=== PATIENT | male | born 1975 | race Caucasian/White ===

== ENCOUNTER → 2016-03-12 | Outpatient (CLI) | payer BC ==
[~2016-03-12] MED LIST: ASPEC81 PO; ASPI81TA28 PO; ATOR-24 PO; CLOP1TAB15 PO; DOXY50CA PO; HYDR-5688 PO; INSDGI; INSPMPHMLG; LPT40 PO; MULT-506 PO; OMEP20CA9 PO; PLV75 PO; PRED-301 PO; PREG75CA PO; QUIN10TA25 PO; SIRO1TAB4 PO; TACR1CAP7 PO; TPRSR50 PO; ZLF/100 PO; ZRX5 PO
[2016-03-12 12:58] LABS: BASO % 0.4 %; BASO ABS # 0.04 K/uL (0-0.2); COMPLETE YES; EOS % 0.9 %; HEMATOCRIT 40.6 % (42-52); IG% 0.2 %; LYMPH % 20.9 %; LYMPH ABS # 1.88 K/uL (1.2-3.4); MEAN CELL VOLUME 80.6 fL (80-100); MEAN CORPUSCULAR HEMOGLOBIN 27.4 pg (25-34); MEAN PLATELET VOLUME 11.5 fL (7.4-10.4); MONO % 9.3 %; NEUT % 68.3 %; PLATELET COUNT 181 K/uL (130-400); RED BLOOD COUNT 5.04 M/uL (4.7-6.1); WHITE BLOOD COUNT 9.01 K/uL (4.8-10.8)
[2016-03-12 13:06] LABS: BLOOD UREA NITROGEN 48 mg/dl (7-18); BUN/CREATININE RATIO 20.9 (10-20); CALCIUM 9.3 mg/dl (8.5-10.1); CARBON DIOXIDE 27 mmol/L (21-32); CHLORIDE 102 mmol/L (98-107); GLUCOSE 93 mg/dl (70-99); POTASSIUM 4.1 mmol/L (3.5-5.1); SODIUM 139 mmol/L (136-145); URIC ACID 6.9 mg/dl (2.6-7.2)
[2016-03-12 14:00] LABS: ESTIMATED AVERAGE GLUCOSE 235 mg/dl; HA1C FLAG Normal (Normal)
== END | disposition home or self-care (01) ==
LOC: C.LAB1850 11:32
PROVIDERS: ATTEND Internal Medicine
DX: E10.9 Type 1 diabetes mellitus without complications (principal); I10 Essential (primary) hypertension; N18.2 Chronic kidney disease, stage 2 (mild); Z94.0 Kidney transplant status

== ENCOUNTER 2016-03-28 05:24 | Day surgery (SDC) | payer BC, OTHER ==
[2016-03-20 16:40] LABS: HEMATOCRIT 40.4 % (42-52); MEAN CELL VOLUME 81.5 fL (80-100); MEAN CORPUSCULAR HEMOGLOBIN 27.4 pg (25-34); MEAN CORPUSCULAR HGB CONC 33.7 g/dl (32-36); MEAN PLATELET VOLUME 11.5 fL (7.4-10.4); PLATELET COUNT 234 K/uL (130-400); RED BLOOD COUNT 4.96 M/uL (4.7-6.1); WHITE BLOOD COUNT 12.45 K/uL (4.8-10.8)
[2016-03-20 16:50] LABS: PARTIAL THROMBOPLASTIN RATIO 0.9; PROTHROMBIN TIME (PATIENT) 10.5 SECONDS (9.0-12.0)
[2016-03-20 16:57] LABS: BLOOD UREA NITROGEN 48 mg/dl (7-18); BUN/CREATININE RATIO 18.6 (10-20); CARBON DIOXIDE 28 mmol/L (21-32); CHLORIDE 105 mmol/L (98-107); GLUCOSE 53 mg/dl (70-99); POTASSIUM 3.8 mmol/L (3.5-5.1); SODIUM 142 mmol/L (136-145)
[2016-03-20 17:11] LABS: BASO % 0.6 %; BASO ABS # 0.07 K/uL (0-0.2); COMPLETE YES; EOS % 1.2 %; IG% 0.2 %; LYMPH % 42.7 %; LYMPH ABS # 5.31 K/uL (1.2-3.4); MONO % 8.4 %; NEUT % 46.9 %
[2016-03-22 15:23] VITALS: BMI 26.0
--- NOTE | 2016-03-27 09:35 | HISTORY & PHYSICAL EXAMINATION ---
DATE OF ADMISSION: 03/28/2016 CHIEF COMPLAINT: Left trigger thumb. HISTORY OF PRESENT ILLNESS: The patient is a 40-year-old gentleman with multiple medical problems and a left trigger thumb. He is scheduled for a left trigger thumb release. However, due to a history of multiple medical problems, his procedure is to be performed at the hospital. PAST MEDICAL HISTORY: Coronary artery disease, status post SC and stent placement, history of end-stage renal disease status post renal transplant with chronic renal insufficiency, hypertension, type 1 diabetes, hyperlipidemia, peripheral neuropathy, depression, gout. PAST SURGICAL HISTORY: Amputation of finger, eye surgery, renal transplant. MEDICATIONS: Allopurinol 300 mg daily, aspirin 81 mg daily, atorvastatin calcium 80 mg at bedtime, clopidogrel 75 mg daily, colchicine 0.6 mg daily, doxycycline hyclate 50 mg 2 times daily, Humalog insulin pump as directed, Lantus insulin as directed, Lyrica 75 mg twice daily, metolazone 10 mg daily, metoprolol succinate ER 200 mg daily, omeprazole 20 mg daily in the a.m. before breakfast, prednisone 5 mg daily, quinapril HCL 20 mg every 12 hours, sertraline HCL 50 mg 1-1/2 tablets daily, Sirolimus 2 mg two tablets once daily, tacrolimus 1 mg 3 capsules twice daily. ALLERGIES: HUMULIN R SOLUTION. SOCIAL HISTORY AND REVIEW OF SYSTEMS: Noncontributory. PHYSICAL EXAMINATION: GENERAL: Well-nourished, well-developed male who appears older than his stated age. HEENT: Normocephalic, atraumatic, extraocular movements intact, oropharynx pink and moist. NECK: Supple without adenopathy. LUNGS: Clear to auscultation bilaterally. HEART: Regular rate and rhythm. ABDOMEN: Soft, nontender, nondistended. EXTREMITIES: The left thumb demonstrates painful triggering at the A1 toan. ASSESSMENT: Left trigger thumb. PLAN: Risks versus benefits were discussed. Consent was obtained. The patient's primary care physician is Dr. Kobe Samson. He has been seen and evaluated by [facility]. Will proceed with left trigger thumb upon preoperative workup and medical clearance.
[~2016-03-28] VITALS: Ht 162.6 cm; Wt 70.5 kg
[~2016-03-28 05:24] MED LIST changes: -ASPEC81 PO; -HYDR-5688 PO; -LPT40 PO; -PLV75 PO; -TPRSR50 PO
[2016-03-28 05:52] VITALS: BP 120/83; PULSE 80; TEMP 36.4; O2SAT 99; Ht 162.6 cm; Wt 70.5 kg
[2016-03-28] MEDS ORDERED: CEFAZOLIN 1000MG/55 ML D5W IV SCH (06:00)
[2016-03-28] MEDS ORDERED: SODIUM CHLORIDE 0.9% 1000ML 1,000 ML IV SCH ×2 (06:00→07:06)
[2016-03-28] MEDS ORDERED: LACTATED RINGER'S 1000ML 1,000 ML IV SCH (06:00)
[2016-03-28] MEDS ORDERED: PROPOFOL IV EMULSION 10 MG/ML 20 ML VIAL IV ONE (06:21)
[2016-03-28] MEDS ORDERED: MIDAZOLAM HCL 1 MG/ML 2ML VIAL ONE (06:21)
[2016-03-28] MEDS ORDERED: ONDANSETRON INJ 2 MG/ML 2 ML VIAL ONE (06:21)
[2016-03-28] MEDS ORDERED: LIDOCAINE HCL 2% 2 ML VIAL (20MG/ML) ONE (06:21)
[2016-03-28] MEDS ORDERED: FENTANYL CITRATE INJ 50 MCG/1 ML 2 ML VIAL ONE (06:21)
[2016-03-28 06:49] LABS: BUN/CREATININE RATIO 20.4 (10-20); CALCIUM 8.7 mg/dl (8.5-10.1); CREATININE 2.6 mg/dl (0.60-1.40); POTASSIUM 4.2 mmol/L (3.5-5.1)
--- NOTE | 2016-03-28 06:50 | History & Physical Bridge Note ---
H&P Re-Evaluation Bridge Note: I have examined the patient, reviewed the History & Physical and in the interval since the performance of the History & Physical I have noted the following changes of clinical significance: No changes noted
[2016-03-28] MEDS ORDERED: HYDR-5688 PO (07:08)
--- NOTE | 2016-03-28 07:11 | Discharge Instructions ---
Discharge Instructions Visit Reason for Visit: Left Trigger Thumb; Pre-Op Discharge Discharge Diagnosis / Problem: Left trigger thumb Discharge Goals Goal(s): Decrease discomfort, Improve function Activity Recommendations Activity Limitations: as noted below Anesthesia . Post Anesthesia Instructions: If you have had General Anesthesia or IV Sedation: * Do not drive today. * Resume driving when surgeon permits. * Do not make important decisions or sign legal documents today. * Call surgeon for: 1. Temperature elevations greater than 101 degrees F. 2. Uncontrollable pain. 3. Excessive bleeding. 4. Persistent nausea and vomiting. 5. Medication intolerance (nausea, vomiting or rash). * For nausea and vomiting use only clear liquids such as: tea, soda, bouillon until nausea subsides, then gradually increase diet as tolerated. * If you have any concerns or questions, call your surgeon's office. If physician is unavailable and it is an emergency, call 911 or go to the nearest emergency room. . Instructions / Follow-Up Instructions / Follow-Up Maintain dressing x 48 hours then may remove and shower. Do not submerge wound in water. Apply light dressing/band-aid as necessary. May use thumb for light daily activities as tolerated. Follow-up with Dr Garvey ~10-14 days Diet Recommendations Recommended Home Diet: diabetes diet Pending Studies Studies pending at discharge: no Medical Emergencies . Who to Call and When: Medical Emergencies: If at any time you feel your situation is an emergency, please call 911 immediately. . Non-Emergent Contact Non-Emergency issues call your: Surgeon Call Non-Emergent contact if: temperature is above 101.5, your pain is not controlled, wound has increased drainage, wound has increased redness . . "Provider Documentation" section prepared by Star Molina PA-C.
[2016-03-28] MEDS ORDERED: OXYCODONE/ACETAMINOPHEN 5-325 TAB PO PRN (07:15)
[2016-03-28] MEDS ORDERED: HYDROCODONE/ACETAMOPHEN 5/325MG TAB PO PRN (07:15)
[2016-03-28] MEDS ORDERED: LIDOCAINE HCL 1% 20 ML VIAL INJ ONE (07:35)
[2016-03-28] MEDS ORDERED: ATROPINE SULFATE 0.1 MG/ML 5ML SYR IV PRN (07:45)
[2016-03-28] MEDS ORDERED: FENTANYL CITRATE INJ 50 MCG/1 ML 2 ML VIAL IV PRN (07:45)
[2016-03-28] MEDS ORDERED: LABETALOL HCL IV 5 MG/ML 20ML IV PRN (07:45)
[2016-03-28] MEDS ORDERED: ONDANSETRON INJ 2 MG/ML 2 ML VIAL IV PRN (07:45)
[2016-03-28 07:55] VITALS: BP 125/89; PULSE 73; TEMP 36.5; O2SAT 100
[2016-03-28 08:19] VITALS: BP 143/96; PULSE 76; O2SAT 100
[2016-03-28 08:25] VITALS: BP 130/84; PULSE 72; TEMP 36.4; O2SAT 100
--- NOTE | 2016-03-28 08:30 | OPERATIVE REPORT ---
DATE OF OPERATION: 03/28/2016 PREOPERATIVE DIAGNOSIS: Trigger thumb, left. POSTOPERATIVE DIAGNOSIS: Trigger thumb, left. PROCEDURE: Release trigger thumb, left. SURGEON: Dr. Garvey. ANESTHESIA: Local IV sedation. COMPLICATIONS: None. OPERATION AND FINDINGS: Following induction of adequate IV sedation, the patient's left arm was prepped and draped in usual sterile manner. The proximal crease of the thumb was injected with 1% lidocaine without epinephrine. A horizontal incision was made in the proximal flexor crease of the thumb. Subcutaneous tissue was bluntly dissected and the A1 toan was identified and transected. This released all triggering. The wound was irrigated and closed using 4-0 nylon vertical mattress sutures. Sterile dressing of Adaptic, 4x4s, and Kerlix was applied. The patient tolerated the procedure well. I attest to the content of the Intraoperative Record and any orders documented therein. Any exceptio ns are noted below.
--- NOTE | 2016-03-28 08:45 | Anesthesiology Progress Note ---
Anesthesia Post Op Note Date & Time Mar 28, 2016 at 08:45 Vital Signs Pain Intensity: 0 Vital Signs Past 12 Hours Date Time Temp Pulse Resp B/P Pulse Ox O2 Delivery O2 Flow Rate FiO2 03/28/16 08:25 36.4 72 16 130/84 100 Room Air 03/28/16 08:19 76 16 143/96 100 Room Air 03/28/16 07:55 36.5 73 16 125/89 100 Room Air 03/28/16 07:49 36.3 72 16 03/28/16 07:49 72 16 99 03/28/16 07:48 155/103 03/28/16 07:44 71 9 100 03/28/16 07:44 71 9 03/28/16 07:43 160/123 03/28/16 07:42 160/113 03/28/16 07:39 84 14 100 03/28/16 07:39 78 14 03/28/16 07:38 159/118 03/28/16 07:36 75 12 99 03/28/16 07:36 73 12 03/28/16 07:33 147/91 03/28/16 07:31 72 16 03/28/16 07:31 74 16 100 03/28/16 07:28 150/95 03/28/16 07:26 71 12 100 03/28/16 07:26 71 12 03/28/16 07:23 148/83 03/28/16 07:21 72 13 100 03/28/16 07:21 72 13 03/28/16 07:21 36.9 80 16 142/97 100 Diffusion Mask 8 03/28/16 05:52 36.4 80 18 120/83 99 Room Air Notes Mental Status: alert / awake / arousable, participated in evaluation Pt Amnestic to Procedure: Yes Nausea / Vomiting: adequately controlled Pain: adequately controlled Airway Patency, RR, SpO2: stable & adequate BP & HR: stable & adequate Hydration State: stable & adequate Anesthetic Complications: no major complications apparent
== END 2016-03-28 08:30 | disposition home or self-care (01) ==
LOC: C.ACU 05:24
DX: M65.312 Trigger thumb, left thumb (principal); I25.10 Atherosclerotic heart disease of native coronary artery without angina pectoris; I25.2 Old myocardial infarction; N18.6 End stage renal disease; I12.0 Hypertensive chronic kidney disease with stage 5 chronic kidney disease or end stage renal disease; Z95.5 Presence of coronary angioplasty implant and graft; F32.9 Major depressive disorder, single episode, unspecified; Z94.0 Kidney transplant status

== ENCOUNTER → 2016-05-16 | Outpatient (CLI) | payer BC ==
[~2016-05-16] MED LIST changes: +HYDR-5688 PO
--- NOTE | 2016-05-17 06:43 | PAP/PSG TECHNICIAN REPORT ---
[facility] Pile Driver Operator Polysomnogram Report Study name: None Report date: 05/17/2016 Study date: 05/16/2016 Referring Physician: DR. MARISCAL Name: JEIMY GALINDO Interpreting Physician: Bakari Mariscal M.D. Date of : 1975 Pile Driver Operator: Peyman Fuentes RPSGT. Sex: Male Age: 40 StudyType: PSG PAP Weight: 151 lbs 16 inches Height: 40 years, Height 5' 3" Neck Circum: BMI: 26.75 Medications: ALLOPURINAL 300 MG, ASPIRIN 81 MG, ATORVASTATIN CALCIUM 80 MG, CLOPIDOGREL BISULFATE 75 MG, COLCHICINE 0.6 MG, DOXYCYCLINE HYCLATE 50 MG, HUMALOG, LANTUS, LYRICA 75 MG, METOLAZONE 5 MG, METOPROLOL SUCCINATE ER 200 MG, OMEPRAZOLE 20 MG, PREDNISONE 5 MG, QUINAPRIL HCL 20 MG, SERTRALINE HCL 50 MG, SIROLIMUS 2 MG, TACROLIMUS 1 MG Patient History PATIENT RECENTLY HAD A HOME SLEEP STUDY DONE AND WAS POSITIVE FOR DIANE WITH AN AHI OF 18.9/HR. HE IS HERE TODAY FOR A CPAP TITRATION. ESS = 17 RM 7 Parameters Monitored NPSG: E1-M2, E2-M1, Fp1-M2, Fp2-M1, F3-M2, F4-M2, F4-M1, C3-M2, C4-M2, C4-M1, O1-M2, O2-M2, O2-M1, T3-M2, T4-M1, P3-M2, P4-M1, CHIN1, CHIN2, HR, EKG, Legs, PFLOW, SNOR, FLOW, CFLOW, Tidal Volume, THOR, ABDO, SpO2, PLTH, CPRESS, ETCO2 Wave, ETCO2, pH Sleep Architecture Sleep Stages Time at Lights Off 10:28:43 PM STAGES Time (min.) TST (%) Time at Lights On 5:49:13 AM Wake 39.0 -- Total Recording Time (TRT) 441.00 min. N1 30.5 8 Total Sleep Period (TSP) 433.5 min. N2 220.5 55 Total Sleep Time (TST) 401.5min. N3 57.5 14 Awake Time 39.5 min. REM 93.0 23 Wake after Sleep Onset 32.5 min. Sleep Efficiency (SE) 91 % Sleep Onset Latency (LINO) 6.5 min. Number of Stage 1 Shifts None Awakenings 29 Stage Changes 126 Number of REM periods 5 REM 93.0 23 REM Latency 170.5 min. NREM 308.5 77 Body Position Analysis Supine Right Left Side Prone Vertical Total Sleep Time (min.) 289.3 0.0 134.8 134.77 0.0 0.0 Total Sleep Time (%) 66% 0% 34% 34 0% N/A% Total Sleep Time REM (min.) 63.0 0.0 30.0 None 0.0 0.0 Total Sleep Time NREM (min.) 203.7 0.0 104.8 None 0.0 0.0 Intermittent Wake (min.) 22.5 0.0 16.5 None 0.0 0.0 Total Sleep Period (%) 66% None None None None None Arousals Myoclonus (PLM) * Events Count Index Events Count Index Spontaneous 44 7 Events Awake (PLMW) 46 70.8 Respiratory 21 3.3 Events Asleep w/ Arousal (PLMA) 16 2.4 PLM 14 2 Events Asleep w/o Arousal (PLMS) 180 26.9 Snoring 0 0 Total Asleep 196 29.3 Total 79 12 Total 242 33 Respiratory Analysis * CA OA MA CH H RERA Total Count 1 4 0 0 18 29 23 Index 0.1 0.6 0.0 0 2.7 4 7.8 Mean Duration 12.5 18.8 0.0 0.00 22.2 17.2 19.0 Longest Duration 12.5 20.9 0.0 0.00 0.0 20.4 31.5 Respiratory Event Summary Total Supine ~Supine Right Left Prone REM NREM Apneas Count 5 4 1 N/A 1 N/A 0 5 Index 0.7 1 0 N/A 0.4 N/A 0 1 Hypopneas (4% Desat) Count 18 17 1 N/A 1 N/A 2 16 Index 2.7 3.8 0 N/A 0.4 N/A 1.3 3.1 Apneas & All Hypopneas Count 23 21 2 N/A 2 N/A 2 21 Index 3.4 5 1 N/A 1 N/A 1.3 4.1 Respiratory Events (Diesel Instructor+All Hyp+RERA) Count 23 50 2 N/A 2 N/A 2 21 Index 7.8 11 1 N/A 0.9 N/A 1.3 9.7 Respiratory Related Arousal Count 21 50 0 N/A 0 N/A 1 21 Index 3.3 5 0 N/A 0 N/A 1 4 Snoring Analysis Supine Right Left Prone REM NREM Total Snore duration 0.1 min Snores count 2 N/A 1 N/A 1 2 3 Snore mean duration 1.8 Sec Snores index 0 N/A 0 N/A 0.6 0.4 0.4 TST with snoring (%) 0.0% Desaturation Event Summary: Minimum %SpO2 Event Count Mean/Min/Max Duration(sec.) Desaturation Index % Time In Bed > 90 27 36.0 / 7.3 / 63.3 3.7 99.6 86 - 90 0 N/A 0.0 0.4 81 - 85 0 N/A 0.0 0.0 76 - 80 0 N/A 0.0 0.0 71 - 75 0 N/A 0.0 0.0 66 - 70 0 N/A 0.0 0.0 61 - 65 0 N/A 0.0 0.0 56 - 60 0 N/A 0.0 0.0 51 - 55 0 N/A 0.0 0.0 < 50 0 N/A 0.0 0.0 Total REM NREM Awake <50% 0.0 min. 0.0 min. 0.0 min. 0.0 min. 51 - 60% 0.0 min. 0.0 min. 0.0 min. 0.0 min. 61 - 70% 0.0 min. 0.0 min. 0.0 min. 0.0 min. 71 - 80% 0.0 min. 0.0 min. 0.0 min. 0.0 min. 81 - 90% 1.9 min. 0.0 min. 1.9 min. 0.0 min. 91 - 100% 437.8 min. 92.9 min. 306.5 min. 38.3 min. Average 97 98 97 97 Minimum SpO2 87 94 87 93 Desaturation Event Index 3.7 1.3 3.7 9.2 # Desat. Events below 89% 2 N/A 1 1 Time(%) with Saturation below 89% 0.1 0.0 0.1 0.0 Time(min.) with Saturation below 89% 0.3 0.0 0.3 0.0 Heart Rate Analysis End Tidal CO2 Analysis Min (bpm) Max (bpm) Average (bpm) TSP (mins) % of TSP Awake 53 127 85 Above 55 mmHg 0.0 0.0 NREM 58 96 82 50-55 mmHg 120.1 29.9 REM 49 86 80 45-50 mmHg 281.4 70.1 Overall 49 96 81 40-45 mmHg 0.0 0.0 35-40 mmHg 0.0 0.0 30-35 mmHg 0.0 0.0 Average ETCO2 0.0 Supplemental O2 Values Minimum O2 level: None Value Start Time End Time Pile Driver Operator Comments Mr. Galindo slept in the supine and left positions. Increased heart rate noted at times. Leg movements noted. No bruxism noted. CPAP was initiated at +4 CMH2O and up-titrated to an optimal level of +13 CMH2O, which nearly eliminated all respiratory events and snoring. A [employer] Simplus size small full face mask was used during titration Mr. Galindo awoke to use the restroom 0 times during the night. Mr. Galindo stated I slept as well as I do when I am in my own bed. The final report will be interpreted and signed by a sleep physician. The completed physician report will then be placed in the patient medical record. Therapy Event: Therapy (cm H20) 4 5 6 7 8 9 10 12 13 Total Time at Pressure (min.) 72.2 9.1 11.4 16.6 14.8 47.2 80.6 13.0 175.5 TST at Pressure (min.) 62.2 7.1 11.4 15.6 11.3 42.2 79.1 13.0 159.5 # Periods 1 1 1 1 1 1 1 1 1 Sleep Onset (min.) 6.5 0.0 0.0 0.0 0.0 0.0 0.0 0.0 0.0 REM Onset (min.) N/A N/A N/A N/A N/A N/A 5.6 N/A 114.5 Sleep Efficiency % 86 78 100 94 76 89 98 100 90 Wakefulness (%) 13.9 22.0 0.0 6.0 23.6 10.6 1.9 0.0 9.1 Wakefulness (min.) 10.0 2.0 0.0 1.0 3.5 5.0 1.5 0.0 16.0 NREM 1 (%) 11.1 33.0 19.6 19.6 6.7 10.6 3.7 0.0 2.8 NREM 1 (min.) 8.0 3.0 2.2 3.3 1.0 5.0 3.0 0.0 5.0 NREM 2 (%) 59.1 45.1 80.4 74.4 69.7 78.8 37.3 15.1 41.3 NREM 2 (min.) 42.7 4.1 9.2 12.4 10.3 37.2 30.1 2.0 72.5 NREM 3 (%) 15.9 0.0 0.0 0.0 0.0 0.0 0.0 84.9 19.9 NREM 3 (min.) 11.5 0.0 0.0 0.0 0.0 0.0 0.0 11.0 35.0 REM (%) 0.0 0.0 0.0 0.0 0.0 0.0 57.1 0.0 26.8 REM (min.) 0.0 0.0 0.0 0.0 0.0 0.0 46.0 0.0 47.0 # Arousals 16 9 9 8 6 12 5 0 14 Arousal Index 15.4 76.0 47.2 30.7 31.7 17.1 3.8 0.0 5.3 # Snore 1 0 0 0 0 1 1 0 0 Snore Index 1.0 0.0 0.0 0.0 0.0 1.4 0.8 0.0 0.0 AHI 2.9 25.3 5.2 0.0 15.9 1.4 4.6 18.5 0.8 AHI Supine 16.1 25.3 5.2 0.0 15.9 1.4 7.6 18.5 1.0 AHI Non-Supine 2.1 N/A N/A N/A N/A N/A 0.0 N/A 0.0 NREM AHI 2.9 25.3 5.2 0.0 15.9 1.4 9.1 18.5 0.5 REM AHI N/A N/A N/A N/A N/A N/A 1.3 N/A 1.3 RDI 2.9 67.6 47.2 19.2 31.7 8.5 4.6 18.5 1.9 # Obstructive 0 1 0 0 1 1 1 0 0 # Central Ap 1 0 0 0 0 0 0 0 0 # Mixed 0 0 0 0 0 0 0 0 0 # Hypopneas 2 2 1 0 2 0 5 4 2 RERAS 0 5 8 5 3 5 0 0 3 Total Respiratory Events 3 8 9 5 6 6 6 4 5 Time Below SpO2 89.00% (min.) 0.0 0.1 0.0 0.0 0.0 0.0 0.2 0.0 0.0 Mean NREM SpO2 (%) 95 94 97 98 98 98 97 97 98 Mean REM SpO2 (%) N/A N/A N/A N/A N/A N/A 98 N/A 98 Mean Sleep SpO2 (%) 95 94 97 98 98 98 97 97 98 Min NREM SpO2 (%) 90 88 93 94 95 96 87 93 92 Min REM SpO2 (%) N/A N/A N/A N/A N/A N/A 94 N/A 94 Position Supine (min.) 3.7 7.1 11.4 15.6 11.3 42.2 47.2 13.0 115.1 Position Non-supine (min.) 58.5 0.0 0.0 0.0 0.0 0.0 31.9 0.0 44.4 LM Index Sleep 49.2 50.7 41.9 30.7 15.9 34.1 14.4 27.8 26.7 LM Index NREM 49.2 50.7 41.9 30.7 15.9 34.1 16.3 27.8 30.4 LM Index REM N/A N/A N/A N/A N/A N/A 13.0 N/A 17.9 Mean Heart Rate (bpm) 88 87 87 86 85 84 80 77 78 Min Heart Rate (bpm) 74 82 82 58 74 79 74 75 49
--- NOTE | 2016-05-21 10:23 | POLYSOMNOGRAPH REPORT ---
CLINICAL DATA: A 40-year-old male with BMI of 26.75 referred by myself and Dr. Samson for treatment of sleep apnea. He had a baseline sleep study done at home which showed moderate sleep apnea with an AHI of 18.9 and was referred for a CPAP titration study. SLEEP ARCHITECTURE: Total sleep period was 433.5 minutes. Total sleep time was 401.5 minutes divided between 308.5 minutes of non-REM sleep and 93 minutes of REM sleep. Sleep onset latency was 6.5 minutes. REM latency was slightly delayed at 170.5 minutes. Sleep efficiency was 91%. Wake after sleep onset was 32.5 minutes. Sleep consisted of stage N1 8%, N2 55%, N3 14% and REM 23%. AROUSAL DATA: 79 arousals were recorded for an index of 12 per hour. PERIODIC LIMB MOVEMENTS DATA: Mildly elevated limb movements during sleep were noted. There are 196 limb movements during sleep noted for an index of 29.3 per hour with arousal index of 2.4 per hour. RESPIRATORY DATA: The AHI was 3.4. There was 1 central and 4 obstructive apneic episodes. The longest duration of apnea was 20.9 seconds. There were 18 hypopneic episodes. The mean duration of hypopnea was 22.2 seconds. OXIMETRY DATA: Mild nocturnal hypoxemia was seen. Oxygen mary was 87%. During non-REM sleep, the mean saturation was 97%. EKG: Heart rates ranged from 58-96 beats per minute. No arrhythmias were noted. ACCOUNTS PAYABLE PROFESSIONAL'S COMMENTS: The patient slept in the supine and the left positions. CPAP was started using a [employer] size small full facemask and was titrated up to 13 cm of water pressure as the final pressure setting. At 13 cm of water pressure, the patient slept for 159.5 minutes with an AHI of 1.9. IMPRESSION: Moderate sleep apnea/hypopnea corrected with CPAP at 13 cm of water pressure with a [employer] Simplus size small full facemask. RECOMMENDATIONS: The patient will be started on the above noted treatment regimen and seen back in followup within 90 days to document efficacy and compliance. MELISSA
== END | disposition home or self-care (01) ==
LOC: C.NEUR 21:00
PROVIDERS: ATTEND Internal Medicine Pulmonary Disease
DX: I25.10 Atherosclerotic heart disease of native coronary artery without angina pectoris (principal); G47.19 Other hypersomnia; Z94.0 Kidney transplant status; G47.33 Obstructive sleep apnea (adult) (pediatric)

== ENCOUNTER → 2016-08-12 | Outpatient (CLI) | payer BC ==
[2016-08-12 12:48] LABS: BASO ABS # 0.05 K/uL (0-0.2); COMPLETE YES; EOS % 3.7 %; HEMATOCRIT 37.8 % (42-52); IG% 0.2 %; LYMPH % 38.2 %; LYMPH ABS # 1.95 K/uL (1.2-3.4); MEAN CELL VOLUME 79.9 fL (80-100); MEAN CORPUSCULAR HEMOGLOBIN 27.3 pg (25-34); MEAN CORPUSCULAR HGB CONC 34.1 g/dl (32-36); MEAN PLATELET VOLUME 11.6 fL (7.4-10.4); MONO % 10.4 %; NEUT % 46.5 %; PLATELET COUNT 166 K/uL (130-400); RED BLOOD COUNT 4.73 M/uL (4.7-6.1)
[2016-08-12 13:04] LABS: ESTIMATED AVERAGE GLUCOSE 283 mg/dl; HA1C FLAG Normal (Normal)
[2016-08-12 13:20] LABS: ALT/SGPT 45 U/L (12-78); AST/SGOT 32 U/L (15-37); BLOOD UREA NITROGEN 56 mg/dl (7-18); BUN/CREATININE RATIO 22.5 (10-20); CALCIUM 8.7 mg/dl (8.5-10.1); CARBON DIOXIDE 27 mmol/L (21-32); CHLORIDE 103 mmol/L (98-107); GLUCOSE 112 mg/dl (70-99); POTASSIUM 3.7 mmol/L (3.5-5.1); SODIUM 140 mmol/L (136-145)
[2016-08-12 13:23] LABS: CHOLESTEROL 185 mg/dl (0-200); CHOLESTEROL/HDL RATIO 2.1; HDL CHOLESTEROL 87 mg/dl; LDL CHOLESTEROL CALCULATED 73 mg/dl; TRIGLYCERIDES 123 mg/dl (0-150); VERY LOW DENSITY LIPOPROT CALC 25 mg/dl
== END | disposition home or self-care (01) ==
LOC: C.LAB1850 10:03
PROVIDERS: ATTEND Physician Assistant
DX: N18.9 Chronic kidney disease, unspecified (principal); E78.5 Hyperlipidemia, unspecified; I25.10 Atherosclerotic heart disease of native coronary artery without angina pectoris

== ENCOUNTER → 2016-09-24 | Outpatient (CLI) | payer BC ==
[2016-09-24 09:52] LABS: BLOOD UREA NITROGEN 57 mg/dl (7-18); BUN/CREATININE RATIO 21.9 (10-20); CALCIUM 8.7 mg/dl (8.5-10.1); CARBON DIOXIDE 26 mmol/L (21-32); CHLORIDE 105 mmol/L (98-107); GLUCOSE 145 mg/dl (70-99); POTASSIUM 4.7 mmol/L (3.5-5.1); SODIUM 140 mmol/L (136-145)
[2016-09-24 09:53] LABS: TOTAL IRON BINDING CAPACITY 261 mcg/dl (250-450)
== END | disposition home or self-care (01) ==
LOC: C.LAB 06:44
PROVIDERS: ATTEND Physician Assistant
DX: N18.9 Chronic kidney disease, unspecified (principal); E10.9 Type 1 diabetes mellitus without complications

== ENCOUNTER → 2017-02-17 | Outpatient (CLI) | payer BC ==
[~2017-02-17] MED LIST changes: -HYDR-5688 PO; -QUIN10TA25 PO; +QUIN1TAB61 PO
[2017-02-17 17:53] LABS: BASO % 0.4 %; BASO ABS # 0.03 K/uL (0-0.2); COMPLETE YES; EOS % 1.3 %; HEMATOCRIT 35.7 % (42-52); IG% 0.4 %; LYMPH % 27.3 %; MEAN CELL VOLUME 83.2 fL (80-100); MEAN CORPUSCULAR HEMOGLOBIN 27.3 pg (25-34); MEAN CORPUSCULAR HGB CONC 32.8 g/dl (32-36); MEAN PLATELET VOLUME 12.6 fL (7.4-10.4); NEUT % 60.6 %; PLATELET COUNT 140 K/uL (130-400); RED BLOOD COUNT 4.29 M/uL (4.7-6.1); WHITE BLOOD COUNT 8.41 K/uL (4.8-10.8)
[2017-02-17 18:42] LABS: URINE PROTIEN/CREAT RATIO 1.3 (0-0.2); URINE TOTAL PROTEIN 220.6 mg/dl (0-11.9)
[2017-02-17 18:59] LABS: BLOOD UREA NITROGEN 42 mg/dl (7-18); BUN/CREATININE RATIO 15.8 (10-20); CALCIUM 8.2 mg/dl (8.5-10.1); CARBON DIOXIDE 24 mmol/L (21-32); CHLORIDE 106 mmol/L (98-107); CREATININE 2.66 mg/dl (0.60-1.40); GLUCOSE 160 mg/dl (70-99); POTASSIUM 4.1 mmol/L (3.5-5.1); SODIUM 138 mmol/L (136-145)
[2017-02-17 19:04] LABS: FERRITIN 133.5 ng/ml (8.0-388.0); PHOSPHORUS 3.6 mg/dl (2.5-4.9); TOTAL IRON BINDING CAPACITY 248 mcg/dl (250-450)
== END | disposition home or self-care (01) ==
LOC: C.LABPVFM 15:58
PROVIDERS: ATTEND Internal Medicine
DX: E78.5 Hyperlipidemia, unspecified (principal)

== ENCOUNTER 2017-04-01 16:11 | Inpatient (IN) | payer BC, OTHER ==
[2017-04-01] VITALS (8 sets, daily range): BP systolic 123–161; BP diastolic 75–108; PULSE 87–96; TEMP 36.5; O2SAT 95–98; BMI 29.9
[~2017-04-01] VITALS: Ht 160 cm; Wt 72.8 kg
[2017-04-01] MEDS ORDERED: ASPIRIN 81 MG CHEW PO STA (16:30)
[2017-04-01] MEDS: NITROGLYCERIN 0.4 MG SL PER TAB CHARGE SL PRN ×3 (16:37→16:50)
--- NOTE | 2017-04-01 16:50 | DIAGNOSTIC IMAGING REPORT ---
SINGLE VIEW CHEST CLINICAL HISTORY: Atypical chest pain. FINDINGS: An AP, portable, upright chest radiograph is compared to study dated 03/25/2015. The examination is degraded by portable technique and patient rotation. The heart appears enlarged. There is pulmonary vascular congestion. Bilateral airspace opacities suggest interstitial edema. There is no large pleural effusion or pneumothorax identified. The bony thorax is grossly intact. IMPRESSION: 1. Cardiomegaly with pulmonary vascular congestion. 2. Bilateral airspace opacities with a perihilar distribution suggest interstitial edema. Correlate clinically for evidence of superimposed pneumonia. Electronically signed by: Rob Kaur M.D. 04/01/2017 4:49 PM Dictated Date/Time: 04/01/2017 4:48 PM
[2017-04-01 16:51] LABS: BASO % 0.3 %; BASO ABS # 0.03 K/uL (0-0.2); EOS % 1.9 %; EOS ABS # 0.17 K/uL (0-0.5); HEMATOCRIT 39.4 % (42-52); HEMOGLOBIN 12.7 g/dL (14.0-18.0); IG# 0.04 K/uL (0.00-0.02); LYMPH % 24.5 %; LYMPH ABS # 2.19 K/uL (1.2-3.4); MEAN CELL VOLUME 85.3 fL (80-100); MEAN CORPUSCULAR HEMOGLOBIN 27.5 pg (25-34); MEAN CORPUSCULAR HGB CONC 32.2 g/dl (32-36); MEAN PLATELET VOLUME 12.5 fL (7.4-10.4); MONO % 4.9 %; MONO ABS # 0.44 K/uL (0.11-0.59); NEUT ABS # 6.07 K/uL (1.4-6.5); PLATELET COUNT 175 K/uL (130-400); RED CELL DISTRIBUTION WIDTH CV 15.5 % (11.5-14.5); RED CELL DISTRIBUTION WIDTH SD 48.2 fL (36.4-46.3); WHITE BLOOD COUNT 8.94 K/uL (4.8-10.8)
[2017-04-01] MEDS ORDERED: NITROGLYCERIN OINT 2% 1GM PACKET EXT ONE (17:00)
[2017-04-01 17:07] LABS: BLOOD UREA NITROGEN 46 mg/dl (7-18); CALCIUM 8.7 mg/dl (8.5-10.1); CARBON DIOXIDE 24 mmol/L (21-32); CREATININE 3.06 mg/dl (0.60-1.40); GLUCOSE 263 mg/dl (70-99); POTASSIUM 5.2 mmol/L (3.5-5.1); SODIUM 138 mmol/L (136-145)
[2017-04-01] MEDS ORDERED: NITROGLYCERIN 2% OINTMENT 30GM TUBE EXT ONE ×2 (17:10→17:12)
[2017-04-01 17:15] LABS: CKMB 9.1 ng/ml (0.5-3.6)
[2017-04-01] MEDS ORDERED: MoRPHine SULFATE 4 MG/ML 1 ML CARP\\VIAL IV STA (17:31)
[2017-04-01] MEDS ORDERED: MAGNESIUM HYDROXIDE SUSP 30 ML UDC PO PRN (18:15)
[2017-04-01] MEDS ORDERED: ACETAMINOPHEN 325 MG TAB PO PRN (18:15)
[2017-04-01] MEDS ORDERED: HydrALAZINE HCL 20 MG/ML VIAL IV. PRN (18:15)
[2017-04-01] MEDS ORDERED: ALUMINUM/MAGNESIUM/SIMETH (MAALOX MAX) 30 ML UDC PO PRN (18:15)
[2017-04-01] MEDS ORDERED: POLYETHYLENE (MIRALAX) 17 GM PACK PO PRN (18:15)
[2017-04-01] MEDS ORDERED: MoRPHine SULFATE 2 MG/ML CARP IV PRN (18:15)
[2017-04-01] MEDS ORDERED: ONDANSETRON INJ 2 MG/ML 2 ML VIAL IV PRN (18:15)
[2017-04-01] MEDS ORDERED: NITROGLYCERIN/D5W 100 MCG/ML 250 ML IV PRN (18:15)
[2017-04-01] MEDS ORDERED: BUMETANIDE SOLN 1 MG/4 ML VIAL IV ONE (18:15)
--- NOTE | 2017-04-01 19:07 | History and Physical ---
History & Physical Date & Time of Service: Apr 01, 2017 at 18:27 Chief Complaint: Chest Pain, Going Down Left Arm, Sick- Cardiac Hx Primary Care Physician: Kobe Samson M.D. History of Present Illness Source: patient, family, clinic records, hospital records Patient is a pleasant 41 y/o male, with PMHx of CAD MA w/ cardiac stenting in 2015, CKD stage IV s/p kidney transplant in 2001 on immunosuppressants, T1DM w/ insulin pump, DIANE, HTN, HLD, and anxiety/depression, who presented to the ED because of chest pressure radiating to L arm. Patient was at work (he is [employer] ). He states he was walking across campus when he started to experience chest tightness. He then sat down and relaxed w/ no relief in symptoms. Shortly after he got up to walk again and became severely SOB causing him to need to sit down. He still complains of chest tightness but has improved since arrival- he was given IV Morphine, Nitro ointment/SL, and ASA in ED. Pain is similar to past presentation of MA but not as severe. Troponin is negative, EKG looks unchanged from previous EKG. He follows w/ Dr. Hadley. He also notes his kidney transplant has been slowly failing. He follows w/ Dr. Samson. He notes very little UO. He also admits to lower extremity edema- he was recently placed on Metolazone by Dr. aSmson w/ no improvement in symptoms. He states his base weight is around 150 lb, today patient is around 175 lb. Patient denies any fever, chills, sweats, lightheadedness, dizziness, vision changes, palpitations , wheezing, cough, abdominal pain, nausea, vomiting, diarrhea, urinary symptoms , melena, numbness/tingling, weakness, muscle/joint pain, anxiety/depression, active bleeding, or new skin discoloration/changes. Past Medical/Surgical History Medical Problems: CAD MA w/ cardiac stenting in 2015 CKD stage IV s/p kidney transplant in 2001 on immunosuppressants T1DM w/ insulin pump DIANE HTN HLD anxiety/depression Family History Diabetes mellitus Hypertension Kidney disease Kidney stones Social History Smoking Status: Never Smoker Drug Use: none Marital Status: Housing status: lives with family Occupational Status: employed Immunizations History of Influenza Vaccine: Yes Influenza Vaccine Date: Dec 10, 2009 History of Tetanus Vaccine?: No History of Pneumococcal: No History of Hepatitis B Vaccine: Yes Multi-Drug Resistant Organisms History of MDRO: No Allergies Coded Allergies: Insulin (Verified Allergy, Unknown, "PORK INSULIN" ALLERGY, 04/01/17) Insulin Isophane (Verified Allergy, Unknown, "PORK INSULIN" ALLERGY, ) Pork Allergy (Verified Allergy, Unknown, "PORK INSULIN" ALLERGY, 04/01/17) Home Medications Scheduled Aspirin (Aspirin Ec), 81 MG PO QPM Atorvastatin (Lipitor), 80 MG PO QPM Clopidogrel (Plavix), 75 MG PO QPM Doxycycline Hyclate (Vibramycin), 50 MG PO QPM Insulin Human Lispro (Insulin Humalog Pump ), 1 EA N/A UD Metolazone (Metolazone), 5 MG PO QPM Multivitamin (Multivitamin), 1 TAB PO QPM Prednisone (Prednisone), 5 MG PO QPM Pregabalin (Lyrica), 75 MG PO BID Quinapril Hcl (Accupril), 10 MG PO QPM Sertraline HCl (Sertraline HCl), 100 MG PO QPM Sirolimus (Rapamune), 2 MG PO BID Tacrolimus (Prograf), 3 MG PO BID Miscellaneous Medications Insulin Glargine (Lantus) Physical Exam Vital Signs Date Time Temp Pulse Resp B/P (MAP) Pulse Ox O2 Delivery O2 Flow Rate FiO2 04/01/17 18:00 98 19 176/114 98 04/01/17 17:51 168/109 04/01/17 17:45 90 21 98 04/01/17 17:30 84 24 183/112 100 04/01/17 17:15 92 30 98 04/01/17 17:14 92 24 166/112 99 Nasal Cannula 3.0 04/01/17 17:00 90 27 166/112 94 04/01/17 16:46 92 Nasal Cannula 3.0 04/01/17 16:35 97 04/01/17 16:28 101 25 190/130 93 Room Air 04/01/17 16:26 92 Room Air 04/01/17 16:16 36.7 102 20 198/138 94 Room Air General Appearance: no apparent distress, + obese, + pertinent finding (O2 NC) Head: normocephalic, atraumatic Eyes: PERRL ENT: hearing grossly normal Neck: supple, no JVD Respiratory/Chest: no respiratory distress, no accessory muscle use, + crackles (bilateral lung bases ) Cardiovascular: regular rate, rhythm (distant heart sounds, no murmur appreciated ) Abdomen/GI: normal bowel sounds, non tender, soft Back: normal inspection Extremities/Musculoskelatal: no calf tenderness, no pedal edema Neurologic/Psych: alert, normal mood/affect, oriented x 3 Skin: normal color, warm/dry, no rash Diagnostics Laboratory Results Results Past 24 Hours Test 04/01/17 16:35 Range/Units White Blood Count 8.94 4.8-10.8 K/uL Red Blood Count 4.62 4.7-6.1 M/uL Hemoglobin 12.7 14.0-18.0 g/dL Hematocrit 39.4 42-52 % Mean Corpuscular Volume 85.3 80-100 fL Mean Corpuscular Hemoglobin 27.5 25-34 pg Mean Corpuscular Hemoglobin Concent 32.2 32-36 g/dl Platelet Count 175 130-400 K/uL Mean Platelet Volume 12.5 7.4-10.4 fL Neutrophils (%) (Auto) 68.0 % Lymphocytes (%) (Auto) 24.5 % Monocytes (%) (Auto) 4.9 % Eosinophils (%) (Auto) 1.9 % Basophils (%) (Auto) 0.3 % Neutrophils # (Auto) 6.07 1.4-6.5 K/uL Lymphocytes # (Auto) 2.19 1.2-3.4 K/uL Monocytes # (Auto) 0.44 0.11-0.59 K/uL Eosinophils # (Auto) 0.17 0-0.5 K/uL Basophils # (Auto) 0.03 0-0.2 K/uL RDW Standard Deviation 48.2 36.4-46.3 fL RDW Coefficient of Variation 15.5 11.5-14.5 % Immature Granulocyte % (Auto) 0.4 % Immature Granulocyte # (Auto) 0.04 0.00-0.02 K/uL Sodium Level 138 136-145 mmol/L Potassium Level 5.2 3.5-5.1 mmol/L Chloride Level 108 98-107 mmol/L Carbon Dioxide Level 24 21-32 mmol/L Anion Gap 6.0 3-11 mmol/L Blood Urea Nitrogen 46 7-18 mg/dl Creatinine 3.06 0.60-1.40 mg/dl Est Creatinine Clear Calc Drug Dose 29.7 ml/min Estimated GFR () 27.9 Estimated GFR (Non- 24.1 BUN/Creatinine Ratio 14.9 10-20 Random Glucose 263 70-99 mg/dl Calcium Level 8.7 8.5-10.1 mg/dl Total Creatine Kinase 799 39-308 U/L Creatine Kinase MB 9.1 0.5-3.6 ng/ml Creatine Kinase MB Ratio 1.1 0-3.0 Troponin I < 0.015 0-0.045 ng/ml Pro-B-Type Natriuretic Peptide 3136 0-450 pg/ml Diagnostic Radiology SINGLE VIEW CHEST CLINICAL HISTORY: Atypical chest pain. FINDINGS: An AP, portable, upright chest radiograph is compared to study dated 03/25/2015. The examination is degraded by portable technique and patient rotation. The heart appears enlarged. There is pulmonary vascular congestion. Bilateral airspace opacities suggest interstitial edema. There is no large pleural effusion or pneumothorax identified. The bony thorax is grossly intact. IMPRESSION: 1. Cardiomegaly with pulmonary vascular congestion. 2. Bilateral airspace opacities with a perihilar distribution suggest interstitial edema. Correlate clinically for evidence of superimposed pneumonia. Electronically signed by: Rob Kaur M.D. 04/01/2017 4:49 PM Dictated Date/Time: 04/01/2017 4:48 PM The status of this report is Signed. Draft = Not yet reviewed or approved by Radiologist. Signed = Reviewed and approved by Radiologist. EKG JEIMY GALINDO ID:[id number] 01-APR-2017 16:16:05 [facility] Sinus tachycardia Possible Left atrial enlargement Anteroseptal infarct (cited on or before 28-MAY-2009) Abnormal ECG When compared with ECG of 27-MAR-2015 08:32, Non-specific change in ST segment in Lateral leads 25mm/s 10mm/mV 150Hz 8.0 SP2 12SL 241 JUVENAL: 0 Referred by: Unconfirmed Vent. rate 103 BPM WV interval 158 ms QRS duration 84 ms QT/QTc 330/432 ms P-R-T axes 54 7 83 1975 (41 yr) Male 1lb Room:TRI Loc:15 [place] Typist:Fannie Vasquez Test ind: Impression Assessment and Plan Patient is a pleasant 41 y/o male, with PMHx of CAD MA w/ cardiac stenting in 2015, CKD stage IV s/p kidney transplant in 2001 on immunosuppressants, T1DM w/ insulin pump, DIANE, HTN, HLD, and anxiety/depression, who presented to the ED because of chest pressure radiating to L arm. Chest pain- ACS r/o: - Admit to ICU for Nitro gtt - Trend cardiac enzymes - EKG unchanged from previous; follow EKG QAM and PRN w/ chest pain - IV Morphine PRN for chest pain - IV Nitro gtt - IV Heparin gtt - Start Coreg 3.125 mg BID - NPO after MD dickey further workup warranted - Consult cardiology, appreciate recommendations CHF- denies previous history: - CXR w/ pulmonary edema - IV Bumex 2 mg x1 now - Hold Metolazone - Monitor I&Os and daily weights- per patient, base weight 150 lbs - Obtain ECHO- last ECHO in 2015 w/ preserved EF CAD MA w/ cardiac stenting in 2015, HLD- follows w/ Dr. 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 Samson: - Continue Rapamune, Prograf, Prednisone - Follow PRP T1DM on insulin pump- last hgbA1c 10.6% in 01/2017: - Repeat hgbA1c - Continue insulin pump - Pharmacy consulted for glycemic management DIANE: CPAP HS Anxiety, depression: Continue Zoloft Acne on chronic Doxycycline therapy DVT prophylaxis: IV Heparin Code Status: LEVEL I, FULL Dispo: From home, lives w/ - CM consulted Level of Care Critical Care Resuscitation Status FULL RESUSCITATION VTE Prophylaxis Given or contraindicated: Other Anticoagulation, T.E.D. Stockings, SCD's Note Total Time: Critical Care 30 - 74 minutes Attending Attestation & Admission Note: Pt seen/examined, chart reviewed, and care plan d/w PITO Dill. I agree w/ the landin components of her admission documentation. Complicated 41yo male with h/o STEMI in 2016 due to occluded LAD, s/p stent, T1DM on insulin pump, renal transplant status now with CKD stage 3-4, HTN - presenting with acute CHF, ongoing chest pain, and markedly elevated blood pressure. He has had significant weight gain over the last few weeks unresponsive to recent metazolone use. He has had worsening LE edema, abdominal swelling, and dyspnea. He has not seen cardiology in quite some time. During my assessment he c/o 4/10 left shoulder/upper arm pain and left-sided chest pain despite SL nitro x 3, topical nitropaste, and morphine. PMH, PSH, allergies, meds, sochx, famhx, ros - reviewed vitals - BPs markedly elevated, HR about 100, afebrile gen - NAD neck - mild JVD heart - tachy, s1, s2, no murmur lungs - bibasilar rales, no distress abd - soft, NT, probable mild ascites, +hepatojugular reflex, liver edge slightly palpable ext - 2+ edema b/l, pulses 2+ b/l labs - Cr 3 CPK 799 troponin negative K 5.2 EKG - NSR, ST segment depression 1/AVL and V6 - unchanged (actually improved) from prior EKG; anterior q waves CXR - pulm edema A/P: 1. acute CHF - uncertain if diastolic or systolic 2. hypertensive emergency given his chest pain & acute CHF 3. known CAD with ongoing chest pain - this could represent unstable angina 4. renal transplant status with CKD stage 3-4 (baseline Cr about 2.5), now with mild acute kidney injury - could be cardio-renal 5. T1DM, on insulin pump, uncontrolled 6. elevated CPK - uncertain etiology Treat for unstable angina with heparin infusion. Serial troponins. Cardiology consultation. Echo. Bumex 2mg IV x 1 now for #1. Strict I's and O's. Hold MONA due to acute kidney injury and mild hyperkalemia. Place on nitroglycerin drip due to #2 and #3 - titrate for SBP <130 and chest pain free. If chest pain continues and positive biomarkers - early cardiac cath ? But poor candidate due to renal function. Send prograf level in AM; continue immunosuppressants. Consult Dr. Samson. Glycemic consult for #5. Serial CPKs; if they do not improve and troponin stays negative could have mild rhabdomyolysis - statin? Plan of care d/w Dr. Menon, ICU attending. Ms. Murarik spoke with on-call cardiology about the plan of care as well. total critical care time - 70 minutes. Kobe Espitia MD Additional Copies To Kobe Samson M.D.; Sabas Hadley M.D.
[2017-04-01] MEDS ORDERED: CARVEDILOL 3.125 MG TAB PO ONE (19:30)
[2017-04-01] MEDS ORDERED: HEPARIN 25000 UNIT/500 ML D5W ONE (19:50)
[2017-04-01] MEDS ORDERED: HEPARIN SOD 5000 UNIT/0.5 ML CARP ONE (19:51)
[2017-04-01] MEDS ORDERED: BUMETANIDE IV 4 MG in SYRINGE 0 ML IV STA (20:10)
[2017-04-01] MEDS ORDERED: BUMETANIDE IV 2 MG in SYRINGE 0 ML IV STA (20:12)
[2017-04-01 20:19] LABS: PTT PATIENT 25.1 SECONDS (21.0-31.0)
[2017-04-01] MEDS ORDERED: PHARMACY GLYCEMIC MGMT CONSULT SCH (20:22)
[2017-04-01] MEDS ORDERED: HEPARIN 25,000 UNIT/500ML D5W 500 ML IV PRN (20:30)
[2017-04-01] MEDS ORDERED: GLUCAGON FOR INJ 1 MG VIAL SQ PRN ×2 (20:45→22:00)
[2017-04-01] MEDS ORDERED: GLUCOSE 40% GEL 15 GM TUBE PO PRN ×2 (20:45→22:00)
[2017-04-01] MEDS ORDERED: DEXTROSE 50% 50 ML SYR IV PRN ×2 (20:45→22:00)
[2017-04-01] MEDS ORDERED: GLUCOSE 10 TABS/TUBE PO PRN ×2 (20:45→22:00)
[2017-04-01] MEDS ORDERED: ENALAPRIL MALEATE 10 MG TAB PO SCH (21:00)
[2017-04-01] MEDS: CLOPIDOGREL BISULFATE 75 MG TAB PO SCH (21:36)
[2017-04-01] MEDS: ATORVASTATIN 40 MG TAB PO SCH (21:36)
[2017-04-01] MEDS: ASPIRIN 81 MG ECTAB PO SCH (21:36)
--- NOTE | 2017-04-01 21:48 | EMERGENCY ROOM VISIT NOTE ---
History Report prepared by Lizeth: Lisa Lynn Under the Supervision of: Dr. Teofilo Gar D.O. First contact with patient: 16:21 Chief Complaint: CHEST PAIN Stated Complaint: CHEST PAIN, GOING DOWN LEFT ARM, SICK- CARDIAC HX Nursing Triage Summary: chest pain since noon with left arm pain. chest tightness and shorntess of breath History of Present Illness The patient is a 41 year old male who presents to the Emergency Room with complaints of worsening chest pain for the past 4 hours. The patient developed chest pain around noon this afternoon that radiates into his left arm. He denies the pain radiating anywhere else. He reports chest tightness and shortness of breath. The patient rates his pain as a 7/10 in severity. He did not take any medications for his pain. The patient reports that he has been having some mild chest pain with exertion over the past couple of days. He had a previous NV two years ago and had a stent placed at that time. He notes that his current pain feels similar, although it is not as severe. Pt denies headache , change in vision, fevers, jaw pain, nausea, vomiting, diarrhea, pain with urination, and melena. Pt denies any personal history of blood clots. Source of History: patient Onset: 4 hours [employer]MATURE W[employer]PA[employer]ER Position: chest Symptom Intensity: 7/10 Quality: other (radiating) Timing: worsening Modifying Factors (Worsening): exertion Associated Symptoms: + SOB, No fevers, No headache, No nausea, No vomiting, No melena, No diarrhea, No urinary symptoms Note: Pain radiates into left arm. Review of Systems See HPI for pertinent positives & negatives. A total of 10 systems reviewed and were otherwise negative. Past Medical & Surgical Medical Problems: (1) Abnormal kidney function (2) AMI anterolateral wall (3) Chest pain (4) Diabetes (5) End-stage renal failure with renal transplant (6) HTN (hypertension) (7) Hypoxia (8) Kidney transplant patient (9) Resistant hypertension (10) STEMI (ST elevation myocardial infarction) (11) Type 1 diabetes mellitus Surgical Problems: (1) Stented coronary artery Family History Diabetes mellitus Heart disease Hypertension Kidney disease Kidney stones Social History Smoking Status: Never Smoker Alcohol Use: none Drug Use: none Marital Status: Housing Status: lives with family Occupation Status: employed Current/Historical Medications Scheduled Aspirin (Aspirin Ec), 81 MG PO QPM Atorvastatin (Lipitor), 80 MG PO QPM Clopidogrel (Plavix), 75 MG PO QPM Doxycycline Hyclate (Vibramycin), 50 MG PO QPM Insulin Human Lispro (Insulin Humalog Pump ), 1 EA N/A UD Metolazone (Metolazone), 5 MG PO QPM Multivitamin (Multivitamin), 1 TAB PO QPM Prednisone (Prednisone), 5 MG PO QPM Pregabalin (Lyrica), 75 MG PO BID Quinapril Hcl (Accupril), 10 MG PO QPM Sertraline HCl (Sertraline HCl), 100 MG PO QPM Sirolimus (Rapamune), 2 MG PO BID Tacrolimus (Prograf), 3 MG PO BID Miscellaneous Medications Insulin Glargine (Lantus) Allergies Coded Allergies: Insulin (Verified Allergy, Unknown, "PORK INSULIN" ALLERGY, 04/01/17) Insulin Isophane (Verified Allergy, Unknown, "PORK INSULIN" ALLERGY, ) Pork Allergy (Verified Allergy, Unknown, "PORK INSULIN" ALLERGY, 04/01/17) Physical Exam Vital Signs Date Time Temp Pulse Resp B/P (MAP) Pulse Ox O2 Delivery O2 Flow Rate FiO2 04/01/17 18:00 98 19 176/114 98 04/01/17 17:51 168/109 04/01/17 17:45 90 21 98 04/01/17 17:30 84 24 183/112 100 04/01/17 17:15 92 30 98 04/01/17 17:14 92 24 166/112 99 Nasal Cannula 3.0 04/01/17 17:00 90 27 166/112 94 04/01/17 16:46 92 Nasal Cannula 3.0 04/01/17 16:35 97 04/01/17 16:28 101 25 190/130 93 Room Air 04/01/17 16:26 92 Room Air 04/01/17 16:16 36.7 102 20 198/138 94 Room Air Physical Exam GENERAL: Sitting up in bed, disheveled, alert, ill appearing, well nourished, no distress, non-toxic EYE EXAM: normal conjunctiva. OROPHARYNX: no exudate, no erythema, lips, buccal mucosa, and tongue normal and mucous membranes are moist NECK: supple, no nuchal rigidity, no adenopathy, non-tender LUNGS: Clear to auscultation. Normal chest wall mechanics HEART: no murmurs, S1 normal and S2 normal ABDOMEN: abdomen soft, non-tender, normo-active bowel sounds, no masses, no rebound or guarding. BACK: Back is symmetrical on inspection and there is no deformity, no midline tenderness, no CVA tenderness. SKIN: no rashes and no bruising UPPER EXTREMITIES: upper extremities are grossly normal. LOWER EXTREMITIES: No pitting edema. Calves equal bilaterally. NEURO EXAM: Normal sensorium, cranial nerves II-XII grossly intact, normal speech, no gross weakness of arms, no gross weakness of legs. Medical Decision & Procedures ER Provider Diagnostic Interpretation: Radiology results as stated below per my review and the radiologist's interpretation: SINGLE VIEW CHEST CLINICAL HISTORY: Atypical chest pain. FINDINGS: An AP, portable, upright chest radiograph is compared to study dated 03/25/2015. The examination is degraded by portable technique and patient rotation. The heart appears enlarged. There is pulmonary vascular congestion. Bilateral airspace opacities suggest interstitial edema. There is no large pleural effusion or pneumothorax identified. The bony thorax is grossly intact. IMPRESSION: 1. Cardiomegaly with pulmonary vascular congestion. 2. Bilateral airspace opacities with a perihilar distribution suggest interstitial edema. Correlate clinically for evidence of superimposed pneumonia. Electronically signed by: Rob Kaur M.D. 04/01/2017 4:49 PM Dictated Date/Time: 04/01/2017 4:48 PM Laboratory Results 04/01/17 16:35 Red Blood Count 4.62, Mean Corpuscular Volume 85.3, Mean Corpuscular Hemoglobin 27.5, Mean Corpuscular Hemoglobin Concent 32.2, Mean Platelet Volume 12.5, Neutrophils (%) (Auto) 68.0, Lymphocytes (%) (Auto) 24.5, Monocytes (%) (Auto) 4.9, Eosinophils (%) (Auto) 1.9, Basophils (%) (Auto) 0.3, Neutrophils # (Auto) 6.07, Lymphocytes # (Auto) 2.19, Monocytes # (Auto) 0.44, Eosinophils # (Auto) 0.17, Basophils # (Auto) 0.03 04/01/17 16:35 Test 04/01/17 16:35 White Blood Count 8.94 K/uL (4.8-10.8) Red Blood Count 4.62 M/uL (4.7-6.1) Hemoglobin 12.7 g/dL (14.0-18.0) Hematocrit 39.4 % (42-52) Mean Corpuscular Volume 85.3 fL (80-100) Mean Corpuscular Hemoglobin 27.5 pg (25-34) Mean Corpuscular Hemoglobin Concent 32.2 g/dl (32-36) Platelet Count 175 K/uL (130-400) Mean Platelet Volume 12.5 fL (7.4-10.4) Neutrophils (%) (Auto) 68.0 % Lymphocytes (%) (Auto) 24.5 % Monocytes (%) (Auto) 4.9 % Eosinophils (%) (Auto) 1.9 % Basophils (%) (Auto) 0.3 % Neutrophils # (Auto) 6.07 K/uL (1.4-6.5) Lymphocytes # (Auto) 2.19 K/uL (1.2-3.4) Monocytes # (Auto) 0.44 K/uL (0.11-0.59) Eosinophils # (Auto) 0.17 K/uL (0-0.5) Basophils # (Auto) 0.03 K/uL (0-0.2) RDW Standard Deviation 48.2 fL (36.4-46.3) RDW Coefficient of Variation 15.5 % (11.5-14.5) Immature Granulocyte % (Auto) 0.4 % Immature Granulocyte # (Auto) 0.04 K/uL (0.00-0.02) Prothrombin Time 10.5 SECONDS (9.0-12.0) Prothromb Time International Ratio 1.0 (0.9-1.1) Activated Partial Thromboplast Time 25.1 SECONDS (21.0-31.0) Partial Thromboplastin Ratio 1.0 Anion Gap 6.0 mmol/L (3-11) Est Creatinine Clear Calc Drug Dose 29.7 ml/min Estimated GFR () 27.9 Estimated GFR (Non- 24.1 BUN/Creatinine Ratio 14.9 (10-20) Calcium Level 8.7 mg/dl (8.5-10.1) Total Creatine Kinase 799 U/L (39-308) Creatine Kinase MB 9.1 ng/ml (0.5-3.6) Creatine Kinase MB Ratio 1.1 (0-3.0) Troponin I < 0.015 ng/ml (0-0.045) Pro-B-Type Natriuretic Peptide 3136 pg/ml (0-450) Laboratory results per my review. Medications Administered Medications (Trade) Dose Ordered Sig/Thad Route Start Time Stop Time Status Last Admin Dose Admin Aspirin (Aspirin Chew) 324 mg NOW STAT PO 04/01/17 16:30 04/01/17 16:31 DC 04/01/17 16:37 324 MG Nitroglycerin (Nitrostat Tab) 0.4 mg Q5M PRN SL 04/01/17 16:30 04/01/17 21:12 DC 04/01/17 16:50 0.4 MG Nitroglycerin (Nitroglycerin 2% Oint) 18 inch STK-MED ONCE EXT 04/01/17 17:10 04/01/17 17:11 DC 04/01/17 17:13 2 INCH Morphine Sulfate (MoRPHine SULFATE INJ) 4 mg NOW STAT IV 04/01/17 17:31 04/01/17 17:32 DC 04/01/17 17:51 4 MG Nitroglycerin/ Dextrose 250 ml @ 0 mls/hr Q0M PRN IV 04/01/17 18:15 3 18:14 04/01/17 20:28 3 MLS/HR ECG Indication: chest pain Rate (beats per minute): 103 Rhythm: sinus tachycardia Findings: nonspecific-ST abn (lateral and high lateral), Q waves (Septal), other (normal axis) Comparison ECG Date: 03/27/15 Change: Q-wave in V4 new otherwise no acute changes. Patient's electrocardiogram interpreted by me. ED Course ED COURSE: Vital signs were reviewed and showed hypertensive, tachycardic. The patients medical record was reviewed The above diagnostic studies were performed and reviewed. ED treatments and interventions as stated above. 1621: The patient was evaluated in room B11B. A complete history and physical examination was performed. 1630: Nitroglycerin 0.4 mg SL - PRN, Aspirin 324 mg PO 1646: I reassessed the patient and he states that his pain comes and goes with the nitro. 1658: I updated the patient and he is still having chest pain. 1700: Nitroglycerin 2 inch EXT 1731: Morphine sulfate 4 mg IV 1738: Upon reevaluation, the patient is resting more comfortably. I discussed my findings with the patient and he understands and agrees with the treatment plan. Based on the patients age, coexisting illnesses, exam and lab findings the decision to treat as an inpatient was made. The patient remained stable while under my care. The patient will be evaluated for further management. 1746: I spoke with Dr. Espitia. We discussed the patient's case. The patient will be evaluated by the [facility] for further management. 1758: I updated the patient and he is doing well and receiving his morphine. Medical Decision Differential diagnoses includes but is not limited to acute coronary syndrome, myocardial infarction, pericarditis, pulmonary embolus, aortic dissection, pneumonia, pneumothorax, musculoskeletal, shingles, esophageal. Patient is a 41-year-old who presents to ER for chest tightness associated with left arm pain and shortness of breath which started around 12 PM today. Patient has a previous history of a stent and end-stage renal disease with a transplant on immunomodulators. CBC was unremarkable. Potassium was elevated at 5.2. Creatinine was 3. Chest x-ray shows CHF. Troponin was negative. INR was normal. Patient was given several tablets of nitroglycerin which resolved his pain but it didn't recur. Following this he was placed on Nitropaste given IV morphine and he was given aspirin. At this time his pain resolved. Discussed with internal medicine. Repeat EKG was unchanged. Patient was admitted to internal medicine with precordial chest pain and unchanged EKG, along with a negative troponin. Medication Reconcilliation Current Medication List: was personally reviewed by me Blood Pressure Screening Patient's blood pressure: Elevated blood pressure Blood pressure disposition: Referred to PCP Consults Time Called: [phone] Consulting Physician: Dr. Espitia Returned Call: [phone] Espitia. We discussed the patient's case. The patient will be evaluated by the [facility] for further management. Impression Primary Impression: Precordial chest pain Scribe Attestation The scribe's documentation has been prepared under my direction and personally reviewed by me in its entirety. I confirm that the note above accurately reflects all work, treatment, procedures, and medical decision making performed by me. Departure Information Dispostion Being Evaluated By Hospitalist Referrals Kobe Samson M.D. (PCP) Patient Instructions [facility]
[2017-04-01] MEDS ORDERED: INSULIN HUMAN LISPRO (humaLOG) 100 UNITS/ML VIAL SC PRN (22:00)
[2017-04-01] MEDS: SERTRALINE HCL 100 MG TAB PO SCH (22:32)
[2017-04-01] MEDS: DOXYCYCLINE HYCLATE 50 MG CAP PO SCH (22:32)
[2017-04-01] MEDS: PREGABALIN 75 MG CAP PO SCH (22:32)
[2017-04-01] MEDS: MULTIVITAMIN TAB PO SCH (22:33)
[2017-04-01] MEDS: TACROLIMUS 1 MG CAP PO SCH (22:33)
[2017-04-01] MEDS: SIROLIMUS 0.5 MG TAB PO SCH (22:33)
[2017-04-01] MEDS ORDERED: PNEUMOCOCCAL POLYSACCHARIDES 25 MCG/0.5 ML VIAL/SYR IM. ONE (23:45)
[2017-04-01] MEDS ORDERED: PNEUMOCOCCAL ADMINISTRATION CHARGE ONE (23:45)
[2017-04-02] VITALS (26 sets, daily range): BP systolic 98–177; BP diastolic 63–113; PULSE 84–101; TEMP 36.5–36.7; O2SAT 90–99; Ht 160 cm; Wt 72.8 kg
[2017-04-02] MEDS ORDERED: NITROGLYCERIN 2% OINTMENT 30GM TUBE EXT SCH
--- NOTE | 2017-04-02 01:59 | Critical Care Consultation ---
Critical Care Consultation Date of Consultation: Apr 02, 2017. Attending Physician: Kobe Espitia MD Reason for Consultation: Uncontrolled Chest Pain History of Present Illness Pt is a 41 yo male with hx of CAD including prior [place] who began to experience sudden onset chest pain while walking at work on [facility] campus, resting did not alleviate pain which radiated down his left arm. Pain mimicked prior MIs but to less severity. Pt then became short of breath. He presented at the ED. Pain was much improved with Nitro. Pt was admitted to the floor until today when he required transfer to the ICU for nitro infusion for continue chest pain. Troponin is negative x1 and EKG appears unchanged. Pt was transferred to the [facility] for possible unstable angina and medical treatment. Upon speaking with the pt today, he is chest pain free on his nitro infusion. He is also undergoing heparin infusion for medical management at this time. He denies The patient denies weight loss, fever, dizziness, headache, muscle weakness, numbness, change in vision, sore throat, current chest pain, palpitations, awareness of tachyarrhythmias, leg swelling, shortness of breath, cough, nausea, vomiting, bloody stools, diarrhea, constipation, abdominal pain, other changes in urine or bowel habits. Past Medical/Surgical History Medical Problems: (1) Abnormal kidney function (2) AMI anterolateral wall (3) Chest pain (4) Diabetes (5) End-stage renal failure with renal transplant (6) HTN (hypertension) (7) Hypoxia (8) Kidney transplant patient (9) Resistant hypertension (10) STEMI (ST elevation myocardial infarction) (11) Type 1 diabetes mellitus Surgical Problems: (1) Stented coronary artery Family History Diabetes mellitus Heart disease Hypertension Kidney disease Kidney stones Social History Smoking Status: Never Smoker Drug Use: none Marital Status: Housing Status: lives with family Occupation Status: employed Allergies Coded Allergies: Insulin (Verified Allergy, Unknown, "PORK INSULIN" ALLERGY, 04/01/17) Insulin Isophane (Verified Allergy, Unknown, "PORK INSULIN" ALLERGY, ) Pork Allergy (Verified Allergy, Unknown, "PORK INSULIN" ALLERGY, 04/01/17) Home Medications Scheduled Aspirin (Aspirin Ec), 81 MG PO QPM Atorvastatin (Lipitor), 80 MG PO QPM Clopidogrel (Plavix), 75 MG PO QPM Doxycycline Hyclate (Vibramycin), 50 MG PO QPM Insulin Human Lispro (Insulin Humalog Pump ), 1 EA N/A UD Metolazone (Metolazone), 5 MG PO QPM Metoprolol Succinate (Toprol Xl), 100 MG PO QPM Multivitamin (Multivitamin), 1 TAB PO QPM Prednisone (Prednisone), 5 MG PO QPM Pregabalin (Lyrica), 75 MG PO BID Quinapril Hcl (Accupril), 10 MG PO QPM Sertraline HCl (Sertraline HCl), 100 MG PO QPM Sirolimus (Rapamune), 2 MG PO BID Tacrolimus (Prograf), 3 MG PO BID Miscellaneous Medications Insulin Glargine (Lantus) Current Inpatient Medications Current Inpatient Medications Medications (Trade) Dose Ordered Sig/Thad Route Start Time Stop Time Status Last Admin Dose Admin Acetaminophen (Tylenol Tab) 650 mg Q4H PRN PO 04/01/17 18:15 05/01/17 18:14 Al Hydrox/Mg Hydrox/Simethicone (Maalox Max Susp) 15 ml Q4H PRN PO 04/01/17 18:15 05/01/17 18:14 Magnesium Hydroxide (Milk Of Magnesia Susp) 30 ml Q12H PRN PO 04/01/17 18:15 05/01/17 18:14 Ondansetron HCl (Zofran Inj) 4 mg Q6H PRN IV 04/01/17 18:15 05/01/17 18:14 Morphine Sulfate (MoRPHine SULFATE INJ) 2 mg Q30M PRN IV 04/01/17 18:15 04/15/17 18:14 Polyethylene (Miralax Powder Packet) 17 gm DAILY PRN PO 04/01/17 18:15 05/01/17 18:14 Hydralazine HCl (HydrALAZINE INJ) 10 mg Q6H PRN IV. 04/01/17 18:15 05/01/17 18:14 Aspirin (Ecotrin Tab) 81 mg QPM PO 04/01/17 21:00 05/01/17 20:59 04/01/17 21:36 81 MG Atorvastatin Calcium (Lipitor Tab) 80 mg QPM PO 04/01/17 21:00 05/01/17 20:59 04/01/17 21:36 80 MG Clopidogrel Bisulfate (plAVix TAB) 75 mg QPM PO 04/01/17 21:00 05/01/17 20:59 04/01/17 21:36 75 MG Doxycycline Hyclate (Vibramycin Cap) 50 mg QPM PO 04/01/17 21:00 05/01/17 20:59 04/01/17 22:32 50 MG Multivitamins (Multivitamin Tab) 1 tab QPM PO 04/01/17 21:00 05/01/17 20:59 04/01/17 22:33 1 TAB Prednisone (PredniSONE TAB) 5 mg QPM PO 04/01/17 21:00 05/01/17 20:59 04/01/17 22:33 5 MG Pregabalin (Lyrica Cap) 75 mg BID PO 04/01/17 21:00 05/01/17 20:59 04/01/17 22:32 75 MG Sertraline HCl (Zoloft Tab) 100 mg QPM PO 04/01/17 21:00 05/01/17 20:59 04/01/17 22:32 100 MG Tacrolimus (Prograf Cap) 3 mg BID PO 04/01/17 21:00 05/01/17 20:59 04/01/17 22:33 3 MG Enalapril Maleate (Vasotec Tab) 10 mg QPM PO 04/01/17 21:00 05/01/17 20:59 Future Hold Sirolimus (Sirolimus) 2 mg BID PO 04/01/17 21:00 05/01/17 20:59 04/01/17 22:33 2 MG Miscellaneous Information (Consult Glycemic Management Pharmacy) 1 ea UD N/A 04/01/17 20:22 05/01/17 20:21 Nitroglycerin/ Dextrose 250 ml @ 0 mls/hr Q0M PRN IV 04/01/17 18:15 05/01/17 18:14 04/01/17 20:28 3 MLS/HR Carvedilol (Coreg Tab) 3.125 mg BID PO 04/02/17 09:00 05/02/17 08:59 Heparin Sodium/ Dextrose 500 ml @ 16 mls/hr Q24H PRN IV 04/01/17 20:30 05/01/17 20:29 Glucose (Glucose 40% Gel) 15-30 GRAMS 15 GRAMS... UD PRN PO 04/01/17 22:00 05/01/17 21:59 Glucose (Glucose Chew Tab) 4-8 Tablets 4 Tabl... UD PRN PO 04/01/17 22:00 05/01/17 21:59 Dextrose (Dextrose 50% 50ML Syringe) 25-50ML OF 50% DW IV FOR... UD PRN IV 04/01/17 22:00 05/01/17 21:59 Glucagon (Glucagon Inj) 1 mg UD PRN SQ 04/01/17 22:00 05/01/17 21:59 Insulin Human Lispro (HumaLOG INSULIN PUMP) 1 ea ACHS N/A 04/02/17 06:45 05/02/17 06:44 Insulin Human Lispro (humaLOG) SLIDING SCALE PRN PRN SC 04/01/17 22:00 05/01/17 21:59 Review of Systems 12 systems reviewed and negative other than previously mentioned in the HPI. Physical Exam Date Time Temp Pulse Resp B/P (MAP) Pulse Ox O2 Delivery O2 Flow Rate FiO2 04/02/17 01:30 87 16 110/70 (88) 96 04/02/17 01:00 90 14 127/74 (90) 96 04/02/17 00:40 94 96 21 04/02/17 00:30 92 17 98/63 (75) 95 04/02/17 00:01 36.5 04/02/17 00:00 90 16 116/79 (92) 94 04/01/17 23:59 96 2.0 04/01/17 23:30 88 16 123/75 (88) 95 04/01/17 23:01 88 16 132/85 (97) 96 04/01/17 22:31 89 25 148/103 (128) 96 04/01/17 22:00 87 23 161/108 (125) 96 04/01/17 21:31 91 16 141/98 (111) 95 04/01/17 21:00 95 24 160/101 (126) 96 04/01/17 20:56 96 95 04/01/17 20:50 36.5 94 20 142/107 98 Nasal Cannula 3.0 04/01/17 20:50 96 23 142/107 (114) 95 04/01/17 20:05 90 153/97 95 Nasal Cannula 3.0 04/01/17 19:31 88 147/95 95 Nasal Cannula 3.0 04/01/17 19:07 88 20 165/111 95 Nasal Cannula 3.0 04/01/17 18:00 98 19 176/114 98 04/01/17 17:51 168/109 04/01/17 17:45 90 21 98 04/01/17 17:30 84 24 183/112 100 04/01/17 17:15 92 30 98 04/01/17 17:14 92 24 166/112 99 Nasal Cannula 3.0 04/01/17 17:00 90 27 166/112 94 04/01/17 16:46 92 Nasal Cannula 3.0 04/01/17 16:35 97 04/01/17 16:28 101 25 190/130 93 Room Air 04/01/17 16:26 92 Room Air 04/01/17 16:16 36.7 102 20 198/138 94 Room Air Vital Signs - as noted Laboratory Data - as noted Physical Exam: General - NAD Eyes - PERRL, EOMI No icterus, gaze conjugate ENT - Mucosa moist, no lesions or candidiasis Neck - Supple, trachea midline, no masses or lymphadenopathy, no JVD or bruits Lungs - No paradoxical chest wall movement, clear to auscultation bilaterally, no wheezes, rales, or rhonchi Heart - Reg rate and rhythm, No murmur, rubs, clicks, or gallops appreciated Abdomen - normoactive BS present, no bruits noted, tympanic to percussion, soft , nontender, nondistended, no organomegaly Extremities - No edema, pedal pulses intact Neuro - A&OX3 Strength extremities equal and appropriate bilaterally Reflexes: normal and equal CN:PERRL, EOMI, no facial asymmetry, uvula/tongue midline Laboratory Results Last 24 Hours Test 04/01/17 16:35 04/01/17 21:54 04/01/17 22:39 04/02/17 01:30 White Blood Count 8.94 K/uL Red Blood Count 4.62 M/uL Hemoglobin 12.7 g/dL Hematocrit 39.4 % Mean Corpuscular Volume 85.3 fL Mean Corpuscular Hemoglobin 27.5 pg Mean Corpuscular Hemoglobin Concent 32.2 g/dl Platelet Count 175 K/uL Mean Platelet Volume 12.5 fL Neutrophils (%) (Auto) 68.0 % Lymphocytes (%) (Auto) 24.5 % Monocytes (%) (Auto) 4.9 % Eosinophils (%) (Auto) 1.9 % Basophils (%) (Auto) 0.3 % Neutrophils # (Auto) 6.07 K/uL Lymphocytes # (Auto) 2.19 K/uL Monocytes # (Auto) 0.44 K/uL Eosinophils # (Auto) 0.17 K/uL Basophils # (Auto) 0.03 K/uL RDW Standard Deviation 48.2 fL RDW Coefficient of Variation 15.5 % Immature Granulocyte % (Auto) 0.4 % Immature Granulocyte # (Auto) 0.04 K/uL Prothrombin Time 10.5 SECONDS Prothromb Time International Ratio 1.0 Activated Partial Thromboplast Time 25.1 SECONDS Partial Thromboplastin Ratio 1.0 Sodium Level 138 mmol/L Potassium Level 5.2 mmol/L Chloride Level 108 mmol/L Carbon Dioxide Level 24 mmol/L Anion Gap 6.0 mmol/L Blood Urea Nitrogen 46 mg/dl Creatinine 3.06 mg/dl Est Creatinine Clear Calc Drug Dose 29.7 ml/min Estimated GFR () 27.9 Estimated GFR (Non- 24.1 BUN/Creatinine Ratio 14.9 Random Glucose 263 mg/dl Calcium Level 8.7 mg/dl Total Creatine Kinase 799 U/L Creatine Kinase MB 9.1 ng/ml Creatine Kinase MB Ratio 1.1 Troponin I < 0.015 ng/ml Pro-B-Type Natriuretic Peptide 3136 pg/ml Bedside Glucose 69 mg/dl 153 mg/dl Test 04/02/17 01:39 04/02/17 01:46 Diagnostic Results SINGLE VIEW CHEST CLINICAL HISTORY: Atypical chest pain. FINDINGS: An AP, portable, upright chest radiograph is compared to study dated 03/25/2015. The examination is degraded by portable technique and patient rotation. The heart appears enlarged. There is pulmonary vascular congestion. Bilateral airspace opacities suggest interstitial edema. There is no large pleural effusion or pneumothorax identified. The bony thorax is grossly intact. IMPRESSION: 1. Cardiomegaly with pulmonary vascular congestion. 2. Bilateral airspace opacities with a perihilar distribution suggest interstitial edema. Correlate clinically for evidence of superimposed pneumonia. Electronically signed by: Rob Kaur M.D. 04/01/2017 4:49 PM Dictated Date/Time: 04/01/2017 4:48 PM Assessment & Plan (1) HTN (hypertension) (2) AMI anterolateral wall (3) Type 1 diabetes mellitus (4) Abnormal kidney function (5) End-stage renal failure with renal transplant (6) Chest pain (7) Hyperglycemia (8) Kidney transplant patient Reason Critically Ill: Patient is an 41-year-old male who is transferred to the ICU for uncontrolled chest pain in the setting of negative troponin and unchanged EKG. Pt likely suffering from unstable angina, currently treating medically. Formal Cardiology consult placed. Heparin and Nitro infusions initiated. CV: * Continue medical management as currently ordered on EMR: Heparin infusion and Nitroglycerin for pain * Trend troponin * Cardiology Consulted: Cardiac label sewer per their discretion * ECHO pending * Continue home meds [] * Monitor on telemetry RESP: * Supplemental O2 as needed * CPAP at night * Pt denies respiratory symptoms at this time : * Renal Transplant * Continue all transplant medications * No [place], Pt using bedside urinal * 1x dose of Bumex with adequate response, continue to monitor fluid status GI: * Sips and Chips overnight; likely continue diet in AM * No GI prophylaxis indicated at this time ID: * Afebrile without leukocytosis * No ABX coverage at this time * Trend fever curve Heme: * H&H stable * Monitor Coags per heparin infusion protocol Neuro * Pt without unilateral signs/sx at this time, monitor per protocol * Continue to treat chest pain with nitro, alert provider should it return * Hx of Neuropathy: Continue Lyrica * Continue Zoloft Endo: * Type 1 DM: Most Recent sugar 466; Begin Insulin Infusion * Accu-Checks per protocol * No known thyroid disorders CCT: 35 Minutes; This time is exclusive of all separately billable procedures. Thank you for involving us in the care of this patient. Please refer to Dr. Marek Menon's addendum for further recommendations. I agree with assessment and plan of Steve Freire PA-C. During rounds in the morning patient was discussed. The patient had complete resolution of his chest pain and nitroglycerin down titrated and eventually turned off. He was seen by cardiology who recommended discontinuation of the heparin infusion. Patient is able to ambulate around the room. He significantly improved since his assessment by Steve Freire PA-C and is stable for downgrade to telemetry status
[2017-04-02 03:23] LABS: PTT PATIENT 90.5 SECONDS (21.0-31.0)
[2017-04-02] MEDS ORDERED: INSULIN IV INFUSION PROTOCOL STA (04:49)
[2017-04-02] MEDS ORDERED: MODERATE STRESS LEVEL ONE (05:00)
[2017-04-02] MEDS ORDERED: INSULIN PROTOCOL GOAL RANGE ONE (05:00)
[2017-04-02] MEDS ORDERED: NovoLIN R BOLUS FROM BAG IV ONE (05:15)
[2017-04-02] MEDS ORDERED: DC ALL PREVIOUSLY ORDERED DIABETES MEDS STA (05:17)
[2017-04-02] MEDS: INSULIN REGULAR 250 UNITS in SODIUM CHLORIDE 0.9% 250ML 250 ML IV SCH (05:44)
[2017-04-02 05:55] LABS: BASO % 0.6 %; BASO ABS # 0.07 K/uL (0-0.2); EOS % 2.2 %; EOS ABS # 0.24 K/uL (0-0.5); HEMATOCRIT 35.3 % (42-52); HEMOGLOBIN 11.3 g/dL (14.0-18.0); IG# 0.04 K/uL (0.00-0.02); LYMPH % 13.7 %; LYMPH ABS # 1.51 K/uL (1.2-3.4); MEAN CELL VOLUME 86.1 fL (80-100); MEAN CORPUSCULAR HEMOGLOBIN 27.6 pg (25-34); MEAN PLATELET VOLUME 12.3 fL (7.4-10.4); MONO % 7.4 %; MONO ABS # 0.82 K/uL (0.11-0.59); NEUT % 75.7 %; NEUT ABS # 8.37 K/uL (1.4-6.5); PLATELET COUNT 160 K/uL (130-400); RED CELL DISTRIBUTION WIDTH CV 15.2 % (11.5-14.5); RED CELL DISTRIBUTION WIDTH SD 47.1 fL (36.4-46.3); WHITE BLOOD COUNT 11.05 K/uL (4.8-10.8)
[2017-04-02 06:13] LABS: CALCIUM 7.8 mg/dl (8.5-10.1); CREATININE 2.83 mg/dl (0.60-1.40); PHOSPHORUS 3.6 mg/dl (2.5-4.9); POTASSIUM 5.8 mmol/L (3.5-5.1)
[2017-04-02 06:16] LABS: HEMOGLOBIN A1C 9.9 % (4.5-5.6)
[2017-04-02] MEDS: INSULIN ASPART 100 UNITS/ML 3 ML PEN SC SCH ×5 (08:00→21:00)
[2017-04-02] MEDS ORDERED: CARVEDILOL 3.125 MG TAB PO SCH (09:00)
[2017-04-02] MEDS: MAGNESIUM SULFATE 1GM / D5W 1 GM in PREMIXED IN D5W 100 ML IV SCH ×2 (09:24→10:48)
[2017-04-02] MEDS: TACROLIMUS 1 MG CAP PO SCH ×2 (09:25→19:26)
[2017-04-02] MEDS: SIROLIMUS 0.5 MG TAB PO SCH ×2 (09:25→19:27)
[2017-04-02] MEDS: PREGABALIN 75 MG CAP PO SCH ×2 (09:28→20:26)
[2017-04-02] MEDS ORDERED: SEVERE STRESS LEVEL PRN (09:30)
[2017-04-02 09:51] LABS: PTT PATIENT 36.3 SECONDS (21.0-31.0)
--- NOTE | 2017-04-02 10:01 | ECHOCARDIOGRAM REPORT ---
*NOTICE TO RECEIVING [employer]UTION [employer]Y AGENCY This information is strictly Confidential and protected under [place] law. [place] law prohibits you from making any further disclosure of this information unless further disclosure is expressly permitted by the written consent of the person to whom it pertains or is authorized by law. A general authorization for the release of medical or other information is not sufficient for this purpose. Hospital accepts no responsibility if the information is made available to any other person, INCLUDING THE PATIENT. Interpretation Summary * Name: JEIMY GALINDO Study Date: 04/02/2017 07:49 AM BP: 138/80 mmHg * Patient Location: .MSICU\S\E106\S\1 HR: 87 * : 1975 (M/d/yyyy) Gender: Male Height: 63 in * Age: 41 yrs Ethnicity: [place] Weight: 176 lb * Ordering Physician: Dominique Dill * Referring Physician: Self, Referred * Performed By: Sydni Mckeon [facility] * * Reason For Study: CHEST PAIN * BSA: 1.8 m2 * -- Conclusions -- * 1. Normal LV size. Mild concentric LVH. * 2. Normal LV function, LVEF 55-60%. Moderate hypokinesis of mid to apical anterior and lateral dominguez. * 3. RV not well visualized but size and function appears grossly normal. * 4. Mild to moderate mitral regurgitation. * 5. Aortic sclerosis without stenosis. * 6. Normal estimated RA and PA pressures. * 7. Compared with prior study on 03/27/2015: Regional wall motion abnormality is more pronounced. Mitral regurgitation is new. Procedure Details * A complete two-dimensional transthoracic echocardiogram was performed (2D, M-mode, Doppler and color flow Doppler). Left Ventricle * The left ventricle is grossly normal size. * There is mild concentric left ventricular hypertrophy. * Ejection Fraction = 55-60%. * Moderate hypokinesis of mid to apical anterior and lateral dominguez Right Ventricle * The right ventricle is not well visualized. * The right ventricle is grossly normal size. * The right ventricular systolic function is normal as assessed by tricuspid annular plane systolic excursion (TAPSE) (normal >1.5 cm). Atria * The left atrial size is normal. * Right atrial size is normal. * No ASD detected; PFO is not assessed. Mitral Valve * The mitral valve is grossly normal. * There is no mitral valve stenosis. * There is mild to moderate mitral regurgitation. Tricuspid Valve * The tricuspid valve is not well visualized, but is grossly normal. * There is trace tricuspid regurgitation. * Right ventricular systolic pressure is elevated at 30-40mmHg. Aortic Valve * The aortic valve is trileaflet. * Aortic valve sclerosis mild, without significant aortic valvular stenosis. * No hemodynamically significant valvular aortic stenosis. * There is no significant aortic regurgitation. Pulmonic Valve * The pulmonic valve is not well seen, but is grossly normal. * Pulmonic stenosis is absent. * Trace pulmonic valvular regurgitation. Great Vessels * The aortic root and proximal ascending aorta are normal sized. Pericardium/Pleural * There is no pericardial effusion. Great Vessels * Normal inferior vena cava size and collapsability with sniff indicates a normal right atrial pressure of 3 mmHg * There is no evidence of pulmonary hypertension. The PA systolic pressure is less than 36 mmHg. MMode 2D Measurements and Calculations IVSd 1.4 cm IVSs 1.9 cm LVIDd 4.0 cm LVIDs 2.7 cm LVPWd 1.5 cm LVPWs 2.1 cm IVS/LVPW 0.99 FS 33.1 % EDV(Teich) 70.9 ml ESV(Teich) 26.8 ml EF(Teich) 62.2 % EDV(cubed) 65.1 ml ESV(cubed) 19.5 ml EF(cubed) 70.1 % % IVS thick 29.5 % % LVPW thick 44.5 % LV mass(C)d 223.9 grams LV mass(C)dI 122.3 grams/m\S\2 LV mass(C)s 232.7 grams LV mass(C)sI 127.0 grams/m\S\2 SV(Teich) 44.1 ml SI(Teich) 24.1 ml/m\S\2 SV(cubed) 45.6 ml SI(cubed) 24.9 ml/m\S\2 Ao root diam 2.8 cm Ao root area 6.0 cm\S\2 LA dimension 3.7 cm LA/Ao 1.3 LVOT diam 2.0 cm LVOT area 3.3 cm\S\2 LVAd ap4 35.5 cm\S\2 LVLd ap4 9.5 cm EDV(MOD-sp4) 108.4 ml EDV(sp4-el) 112.3 ml LVAs ap4 25.4 cm\S\2 LVLs ap4 8.8 cm ESV(MOD-sp4) 59.7 ml ESV(sp4-el) 62.3 ml EF(MOD-sp4) 44.9 % EF(sp4-el) 44.5 % LVAd ap2 34.4 cm\S\2 LVLd ap2 8.7 cm EDV(MOD-sp2) 110.3 ml EDV(sp2-el) 115.7 ml LVAs ap2 24.5 cm\S\2 LVLs ap2 8.0 cm ESV(MOD-sp2) 61.5 ml ESV(sp2-el) 63.6 ml EF(MOD-sp2) 44.3 % EF(sp2-el) 45.1 % LVLd %diff -9.92 % EDV(MOD-bp) 113.3 ml LVLs %diff -9.44 % ESV(MOD-bp) 63.2 ml EF(MOD-bp) 44.2 % SV(MOD-sp4) 48.7 ml SI(MOD-sp4) 26.6 ml/m\S\2 SV(MOD-sp2) 48.8 ml SI(MOD-sp2) 26.7 ml/m\S\2 SV(MOD-bp) 50.0 ml SI(MOD-bp) 27.3 ml/m\S\2 SV(sp4-el) 50.0 ml SI(sp4-el) 27.3 ml/m\S\2 SV(sp2-el) 52.2 ml SI(sp2-el) 28.5 ml/m\S\2 Doppler Measurements and Calculations Ao V2 max 168.2 cm/sec Ao max PG 11.3 mmHg Ao max PG (full) 7.7 mmHg ARNULFO(V,A) 1.9 cm\S\2 ARNULFO(V,D) 1.9 cm\S\2 LV V1 max PG 3.7 mmHg LV V1 max 95.6 cm/sec MR max rachele 629.5 cm/sec MR max PG 158.7 mmHg PA V2 max 110.4 cm/sec PA max PG 4.9 mmHg TR max rachele 277.8 cm/sec
[2017-04-02 10:24] LABS: CKMB 5.9 ng/ml (0.5-3.6)
--- NOTE | 2017-04-02 11:20 | Cardiology Consultation ---
Cardiology Consultation Date of Consultation: Apr 02, 2017. Requesting Physician: Jimmie Reason for Consultation: Chest Pain Pt evaluation today including: conversation w/ patient, conversation w/ family , physical exam, chart review, lab review, review of studies, conversation w/ transportation consultant, review of inpatient medication list, conversation w/ attending History of Present Illness The patient is a 41-year-old gentleman with type 1 diabetes mellitus and history of coronary artery disease having suffered an acute myocardial infarction in March of 2015. Patient was in his usual state of health until yesterday morning when he began experience some symptoms of exertional dyspnea. Patient states that at times he had to sit and rest and then could continue with his activity. The symptoms more progressive in nature and later evolved to involve an element of chest pressure and left arm discomfort. At 1st the symptoms were primarily exertional but later were present all the time. Due to increasing severity of the symptoms in the prolonged nature of his symptoms the patient eventually sought medical attention at [facility]. It seems the symptoms last for several hours prior to presentation. The patient also states that he did not obtain immediate relief at our facility but the symptoms gradually resolved over the course of a few hours. He states that the symptoms were similar to those experienced during his initial myocardial infarction although of less severity. Patient states that he has been gaining weight recently. He has also been urinating less than developed an element of lower extremity edema. He generally is an active individual who exercises regularly. He and his exercise at the [employer] and he has been using several types of cardiovascular equipment without symptoms of dyspnea or chest discomfort. He denies any orthopnea or paroxysmal nocturnal dyspnea. He has not been aware of any palpitations or racing heartbeats recently. He claims to be compliant with all his medications but does not measure his blood pressure routinely. Past Medical/Surgical History Coronary disease Type 1 diabetes mellitus Renal failure status post renal transplant Hyperlipidemia Depression Anxiety Gastroesophageal reflux disease Gout Hypertension Past surgical history Renal transplant Eye surgery Amputation of finger Family History Diabetes mellitus Heart disease Hypertension Kidney disease Kidney stones Noncontributory given his known history of coronary disease Social History Smoking Status: Never Smoker History of Alcohol Use: Yes (SOCAILLY) Currently works in the [employer]. Review of Systems He denies any recent history of fevers or chills. No upper respiratory symptoms. He has endorsed reduced urination recently. All Other Systems: Reviewed and Negative Allergies Coded Allergies: Insulin (Verified Allergy, Unknown, "PORK INSULIN" ALLERGY, 04/01/17) Insulin Isophane (Verified Allergy, Unknown, "PORK INSULIN" ALLERGY, ) Pork Allergy (Verified Allergy, Unknown, "PORK INSULIN" ALLERGY, 04/01/17) Medications Current Inpatient Medications Medications (Trade) Dose Ordered Sig/Thad Route Start Time Stop Time Status Last Admin Dose Admin Acetaminophen (Tylenol Tab) 650 mg Q4H PRN PO 04/01/17 18:15 05/01/17 18:14 Al Hydrox/Mg Hydrox/Simethicone (Maalox Max Susp) 15 ml Q4H PRN PO 04/01/17 18:15 05/01/17 18:14 Magnesium Hydroxide (Milk Of Magnesia Susp) 30 ml Q12H PRN PO 04/01/17 18:15 05/01/17 18:14 Ondansetron HCl (Zofran Inj) 4 mg Q6H PRN IV 04/01/17 18:15 05/01/17 18:14 Morphine Sulfate (MoRPHine SULFATE INJ) 2 mg Q30M PRN IV 04/01/17 18:15 04/15/17 18:14 Polyethylene (Miralax Powder Packet) 17 gm DAILY PRN PO 04/01/17 18:15 05/01/17 18:14 Hydralazine HCl (HydrALAZINE INJ) 10 mg Q6H PRN IV. 04/01/17 18:15 05/01/17 18:14 04/02/17 09:05 10 MG Aspirin (Ecotrin Tab) 81 mg QPM PO 04/01/17 21:00 05/01/17 20:59 04/01/17 21:36 81 MG Atorvastatin Calcium (Lipitor Tab) 80 mg QPM PO 04/01/17 21:00 05/01/17 20:59 04/01/17 21:36 80 MG Clopidogrel Bisulfate (plAVix TAB) 75 mg QPM PO 04/01/17 21:00 05/01/17 20:59 04/01/17 21:36 75 MG Doxycycline Hyclate (Vibramycin Cap) 50 mg QPM PO 04/01/17 21:00 05/01/17 20:59 04/01/17 22:32 50 MG Multivitamins (Multivitamin Tab) 1 tab QPM PO 04/01/17 21:00 05/01/17 20:59 04/01/17 22:33 1 TAB Prednisone (PredniSONE TAB) 5 mg QPM PO 04/01/17 21:00 05/01/17 20:59 04/01/17 22:33 5 MG Pregabalin (Lyrica Cap) 75 mg BID PO 04/01/17 21:00 05/01/17 20:59 04/02/17 09:28 75 MG Sertraline HCl (Zoloft Tab) 100 mg QPM PO 04/01/17 21:00 05/01/17 20:59 04/01/17 22:32 100 MG Tacrolimus (Prograf Cap) 3 mg BID PO 04/01/17 21:00 05/01/17 20:59 04/02/17 09:25 3 MG Enalapril Maleate (Vasotec Tab) 10 mg QPM PO 04/01/17 21:00 05/01/17 20:59 Future Hold Sirolimus (Sirolimus) 2 mg BID PO 04/01/17 21:00 05/01/17 20:59 04/02/17 09:25 2 MG Miscellaneous Information (Consult Glycemic Management Pharmacy) 1 ea UD N/A 04/01/17 20:22 05/01/17 20:21 Nitroglycerin/ Dextrose 250 ml @ 0 mls/hr Q0M PRN IV 04/01/17 18:15 05/01/17 18:14 04/01/17 20:28 3 MLS/HR Carvedilol (Coreg Tab) 3.125 mg BID PO 04/02/17 09:00 05/02/17 08:59 04/02/17 09:25 3.125 MG Heparin Sodium/ Dextrose 500 ml @ 13 mls/hr Q24H PRN IV 04/01/17 20:30 05/01/17 20:29 04/02/17 03:32 13 MLS/HR Glucose (Glucose 40% Gel) 15-30 GRAMS 15 GRAMS... UD PRN PO 04/01/17 22:00 05/01/17 21:59 Glucose (Glucose Chew Tab) 4-8 Tablets 4 Tabl... UD PRN PO 04/01/17 22:00 05/01/17 21:59 Dextrose (Dextrose 50% 50ML Syringe) 25-50ML OF 50% DW IV FOR... UD PRN IV 04/01/17 22:00 05/01/17 21:59 Glucagon (Glucagon Inj) 1 mg UD PRN SQ 04/01/17 22:00 05/01/17 21:59 Insulin Human Lispro (HumaLOG INSULIN PUMP) 1 ea ACHS N/A 04/02/17 06:45 05/02/17 06:44 Future Hold Insulin Human Lispro (humaLOG) SLIDING SCALE PRN PRN SC 04/01/17 22:00 05/01/17 21:59 Future Hold Insulin Aspart (novoLOG ASPART) SLIDING SCALE PCHS SC 04/02/17 08:00 05/02/17 07:59 Insulin Human Regular 250 units/ Sodium Chloride 252.5 ml @ 0 mls/hr Q24H IV 04/02/17 05:30 05/02/17 05:29 04/02/17 05:44 1.9 MLS/HR Magnesium Sulfate 1 gm/Prmx 100 ml @ 100 mls/hr Q1H IV 04/02/17 09:00 04/02/17 10:59 04/02/17 10:48 100 MLS/HR Miscellaneous (Insulin Protocol Severe Stress) Q24H PRN N/A 04/02/17 09:30 05/02/17 09:29 Physical Exam Vital Signs Past 12 Hours Date Time Temp Pulse Resp B/P (MAP) Pulse Ox O2 Delivery O2 Flow Rate FiO2 04/02/17 10:00 91 16 127/83 (98) 96 Room Air 04/02/17 09:00 84 19 167/103 (124) 97 Room Air 04/02/17 08:30 85 19 143/95 (111) 97 Room Air 04/02/17 08:00 36.6 84 17 155/92 (113) 95 Room Air 04/02/17 08:00 96 Room Air 04/02/17 07:00 90 16 137/88 (103) 94 04/02/17 06:30 90 22 136/91 (96) 90 04/02/17 06:02 101 25 140/102 (118) 97 04/02/17 05:31 96 16 138/96 (110) 98 04/02/17 04:31 95 13 161/113 (131) 98 04/02/17 04:00 36.5 04/02/17 04:00 89 14 138/80 (93) 96 04/02/17 04:00 96 CPAP 04/02/17 03:30 90 15 113/73 (90) 96 04/02/17 03:00 92 15 119/73 (84) 96 04/02/17 02:31 93 21 138/98 (107) 97 04/02/17 02:00 91 16 145/90 (100) 97 04/02/17 01:30 87 16 110/70 (88) 96 04/02/17 01:00 90 14 127/74 (90) 96 04/02/17 00:40 94 96 21 04/02/17 00:30 92 17 98/63 (75) 95 04/02/17 00:01 36.5 04/02/17 00:00 90 16 116/79 (92) 94 04/01/17 23:59 96 2.0 04/01/17 23:30 88 16 123/75 (88) 95 04/01/17 23:01 88 16 132/85 (97) 96 The patient is alert and oriented. Mood and affect appeared normal. He answered all questions appropriately. HEENT: Pupils are equal and reactive to light and accommodation. Extraocular movements are intact. The sclerae are anicteric. Neuro: Cranial nerves intact Neck: Patient's neck is supple. He has palpable carotid pulses bilaterally without bruits on auscultation. There is no evidence of jugular venous distention. The thyroid is not enlarged. Lungs: Some crackles at the bases bilaterally. He has good air movement without use of accessory muscles. No wheezes or rhonchi. Cardiac: Heart demonstrates a regular rate and rhythm. Normal S1 and S2. Crescendo systolic murmur heard best at the left 2nd intercostal space. Pulses: The patient has palpable radial pulses bilaterally that are equal in intensity Extremities: There was no evidence of hypoperfusion. There is no cyanosis or clubbing. There is no edema but he is wearing sequential compression devices. Skin: I did not appreciate any rashes on examination today. Data Laboratory Results: Last 24 Hours Test 04/01/17 16:35 04/01/17 21:54 04/01/17 22:39 04/02/17 01:39 White Blood Count 8.94 K/uL Red Blood Count 4.62 M/uL Hemoglobin 12.7 g/dL Hematocrit 39.4 % Mean Corpuscular Volume 85.3 fL Mean Corpuscular Hemoglobin 27.5 pg Mean Corpuscular Hemoglobin Concent 32.2 g/dl Platelet Count 175 K/uL Mean Platelet Volume 12.5 fL Neutrophils (%) (Auto) 68.0 % Lymphocytes (%) (Auto) 24.5 % Monocytes (%) (Auto) 4.9 % Eosinophils (%) (Auto) 1.9 % Basophils (%) (Auto) 0.3 % Neutrophils # (Auto) 6.07 K/uL Lymphocytes # (Auto) 2.19 K/uL Monocytes # (Auto) 0.44 K/uL Eosinophils # (Auto) 0.17 K/uL Basophils # (Auto) 0.03 K/uL RDW Standard Deviation 48.2 fL RDW Coefficient of Variation 15.5 % Immature Granulocyte % (Auto) 0.4 % Immature Granulocyte # (Auto) 0.04 K/uL Prothrombin Time 10.5 SECONDS Prothromb Time International Ratio 1.0 Activated Partial Thromboplast Time 25.1 SECONDS 90.5 SECONDS Partial Thromboplastin Ratio 1.0 3.5 Sodium Level 138 mmol/L Potassium Level 5.2 mmol/L Chloride Level 108 mmol/L Carbon Dioxide Level 24 mmol/L Anion Gap 6.0 mmol/L Blood Urea Nitrogen 46 mg/dl Creatinine 3.06 mg/dl Est Creatinine Clear Calc Drug Dose 29.7 ml/min Estimated GFR () 27.9 Estimated GFR (Non- 24.1 BUN/Creatinine Ratio 14.9 Random Glucose 263 mg/dl Calcium Level 8.7 mg/dl Total Creatine Kinase 799 U/L 517 U/L Creatine Kinase MB 9.1 ng/ml 6.0 ng/ml Creatine Kinase MB Ratio 1.1 1.2 Troponin I < 0.015 ng/ml 0.029 ng/ml Pro-B-Type Natriuretic Peptide 3136 pg/ml Bedside Glucose 69 mg/dl 153 mg/dl Test 04/02/17 01:46 04/02/17 04:30 04/02/17 04:36 04/02/17 04:45 Urine Color YELLOW Urine Appearance CLEAR Urine pH 5.0 Urine Specific [place] 1.014 Urine Protein NEG Urine Glucose (UA) 2+ Urine Ketones NEG Urine Occult Blood NEG Urine Nitrite NEG Urine Bilirubin NEG Urine Urobilinogen NEG Urine Leukocyte Esterase NEG Urine WBC (Auto) 0 /hpf Urine RBC (Auto) 0-4 /hpf Urine Hyaline Casts (Auto) 0 /lpf Urine Epithelial Cells (Auto) 0-5 /lpf Urine Bacteria (Auto) NEG Bedside Glucose 489 mg/dl 466 mg/dl White Blood Count 11.05 K/uL Red Blood Count 4.10 M/uL Hemoglobin 11.3 g/dL Hematocrit 35.3 % Mean Corpuscular Volume 86.1 fL Mean Corpuscular Hemoglobin 27.6 pg Mean Corpuscular Hemoglobin Concent 32.0 g/dl Platelet Count 160 K/uL Mean Platelet Volume 12.3 fL Neutrophils (%) (Auto) 75.7 % Lymphocytes (%) (Auto) 13.7 % Monocytes (%) (Auto) 7.4 % Eosinophils (%) (Auto) 2.2 % Basophils (%) (Auto) 0.6 % Neutrophils # (Auto) 8.37 K/uL Lymphocytes # (Auto) 1.51 K/uL Monocytes # (Auto) 0.82 K/uL Eosinophils # (Auto) 0.24 K/uL Basophils # (Auto) 0.07 K/uL RDW Standard Deviation 47.1 fL RDW Coefficient of Variation 15.2 % Immature Granulocyte % (Auto) 0.4 % Immature Granulocyte # (Auto) 0.04 K/uL Sodium Level 134 mmol/L Potassium Level 5.8 mmol/L Chloride Level 103 mmol/L Carbon Dioxide Level 21 mmol/L Anion Gap 10.0 mmol/L Blood Urea Nitrogen 54 mg/dl Creatinine 2.83 mg/dl Est Creatinine Clear Calc Drug Dose 31.4 ml/min Estimated GFR () 30.7 Estimated GFR (Non- 26.5 BUN/Creatinine Ratio 18.9 Random Glucose 519 mg/dl Estimated Average Glucose 237 mg/dl Hemoglobin A1c 9.9 % Calcium Level 7.8 mg/dl Phosphorus Level 3.6 mg/dl Magnesium Level 1.6 mg/dl Triglycerides Level 160 mg/dl Cholesterol Level 158 mg/dl HDL Cholesterol 69 mg/dl LDL Cholesterol, Calculated 57 mg/dl VLDL Cholesterol, Calculated 32 mg/dl Cholesterol/HDL Ratio 2.3 Beta-Hydroxybutyric Acid 25.68 mg/dL Test 04/02/17 07:40 04/02/17 08:47 04/02/17 09:30 04/02/17 09:35 Bedside Glucose 377 mg/dl 282 mg/dl Activated Partial Thromboplast Time 36.3 SECONDS Partial Thromboplastin Ratio 1.4 Total Creatine Kinase 454 U/L Creatine Kinase MB 5.9 ng/ml Creatine Kinase MB Ratio 1.3 Troponin I < 0.015 ng/ml Test 04/02/17 09:36 Bedside Glucose 255 mg/dl Imaging: Chest x-rays obtained which suggested element of pulmonary vascular congestion EKG: Normal sinus rhythm with evidence of old anterolateral myocardial infarction. No acute ST or T-wave changes Echocardiogram was obtained today which revealed preserved LV systolic function. He had an anterolateral wall motion abnormality. Aortic sclerosis without stenosis. Assessment & Plan 1. Chest pain: The patient's chest pain was quite characteristic of an acute coronary syndrome. However, he had a prolonged duration of symptoms without any elevation is cardiac biomarkers. This is despite significant renal impairment. I think we can definitively say that there was no objective evidence of cardiac ischemia and that his chest pain was not related to an acute coronary syndrome or cardiac ischemia. I think the most likely explanation was simply pulmonary vascular congestion in the setting of reduced renal function and weight gain. He otherwise appears to be exercising regularly without symptoms of angina or coronary insufficiency. I would not advocate any additional testing for cardiac ischemia currently. 2. Dyspnea: Patient did appear to have an element of pulmonary vascular congestion. This is likely related to overall volume overload. He responded to diuretics and nitrates. He is feeling much better today. He likely will require additional doses of diuretic and perhaps an adjustment in his outpatient regimen. 3. Hypertension: Patient was markedly hypertensive the time of admission. Whether this related to his overall volume overload or contributing to an element of diastolic failure is unclear. Blood pressure is currently well controlled in the hospital on a nitroglycerin infusion. It is also likely improved with diuresis. He may require some additional agents for control in the outpatient setting. I will defer to Nephrology service regarding specific agents in the setting of his declining renal transplant. 0 4. Valvular heart disease: Patient has element of mitral regurgitation classified as mild to moderate. This can be monitored over time. Not likely contributing to any symptoms or decompensation currently. Preserved LV systolic function. 5. Coronary artery disease: Patient is on her appropriate regimen for secondary prevention to include daily aspirin, clopidogrel, high-dose atorvastatin and beta blockade.
[2017-04-02] MEDS ORDERED: *HEPARIN INFUSION*STOP ORDER ONE (11:30)
--- NOTE | 2017-04-02 15:26 | Pharmacy Progress Note ---
Glycemic Control Intl Consult Date of Service Apr 02, 2017. Scope Glycemic Pharmacist consulted by Dominique Dill on 04/02 for glycemic control and to write orders per [facility] inpatient glycemic control protocol Objective Weight (Kilograms): 74.300 Accuchecks BSG (last 24hrs): Test 04/01/17 16:35 04/01/17 21:54 04/01/17 22:39 04/02/17 04:30 Random Glucose 263 mg/dl (70-99) Bedside Glucose 69 mg/dl (70-99) 153 mg/dl (70-99) 489 mg/dl (70-99) Test 04/02/17 04:36 04/02/17 04:45 04/02/17 07:40 04/02/17 08:47 Bedside Glucose 466 mg/dl (70-99) 377 mg/dl (70-99) 282 mg/dl (70-99) Random Glucose 519 mg/dl (70-99) Test 04/02/17 09:36 04/02/17 11:25 Bedside Glucose 255 mg/dl (70-99) 243 mg/dl (70-99) Laboratory Data (last 24hrs) Test 04/01/17 16:35 04/02/17 04:45 Anion Gap 6.0 mmol/L 10.0 mmol/L BUN/Creatinine Ratio 14.9 18.9 Blood Urea Nitrogen 46 mg/dl 54 mg/dl Creatinine 3.06 mg/dl 2.83 mg/dl Potassium Level 5.2 mmol/L 5.8 mmol/L Sodium Level 138 mmol/L 134 mmol/L White Blood Count 8.94 K/uL 11.05 K/uL Red Blood Count 4.62 M/uL 4.10 M/uL Hemoglobin 12.7 g/dL 11.3 g/dL Hematocrit 39.4 % 35.3 % Mean Corpuscular Volume 85.3 fL 86.1 fL Mean Corpuscular Hemoglobin 27.5 pg 27.6 pg Mean Corpuscular Hemoglobin Concent 32.2 g/dl 32.0 g/dl Platelet Count 175 K/uL 160 K/uL Mean Platelet Volume 12.5 fL 12.3 fL Neutrophils (%) (Auto) 68.0 % 75.7 % Lymphocytes (%) (Auto) 24.5 % 13.7 % Monocytes (%) (Auto) 4.9 % 7.4 % Eosinophils (%) (Auto) 1.9 % 2.2 % Basophils (%) (Auto) 0.3 % 0.6 % Neutrophils # (Auto) 6.07 K/uL 8.37 K/uL Lymphocytes # (Auto) 2.19 K/uL 1.51 K/uL Monocytes # (Auto) 0.44 K/uL 0.82 K/uL Eosinophils # (Auto) 0.17 K/uL 0.24 K/uL Basophils # (Auto) 0.03 K/uL 0.07 K/uL Hemoglobin A1c 9.9 % HbA1c Test 04/02/17 04:45 Hemoglobin A1c 9.9 % (4.5-5.6) H Recent Pertinent Medications Outpatient Anti-diabetic Regimen: * humalog pump (30 units only when pump not working per med rec) * A1c = 9.9 % date Assessment & Plan ASSESSMENT: * Patient with history of T1DM and kidney transplant presenting with chest pain. Confirmed with nurse that patients insulin pump is off and the nurse stated the family is in position of the pump. PLAN FOR INPATIENT GLYCEMIC CONTROL: * Starting IV insulin infusion per severe stress protocol (started ~0530) * Goal Range 100 - 180 mg/dl * In the critical care setting, continuous IV insulin infusion has been shown to be the best method for achieving glycemic targets. * Holding outpatient oral diabetes medications * Correctional Insulin with NOVOLOG / REGULAR per scale [facility] * Please note that the plan above was derived based on current level of insulin resistance and hospital stress. These recommendations are appropriate for inpatient admission only. Plan of care upon discharge will need to be reassessed to avoid potential outpatient hypo/hyperglycemia. Thank you.
[2017-04-02] MEDS ORDERED: METO-479 PO (15:40)
--- NOTE | 2017-04-02 15:49 | Hospitalist Progress Note ---
Hospitalist Progress Note Date of Service Apr 02, 2017. Subjective Pt evaluation today including: conversation w/ patient, conversation w/ family BPs much improved, has no CP or SOB. Feels much better, is urinating quite a bit. Is weaned off nitro gtt. Pt reports he usually runs a high HgbA1C as he once had a hypoglycemic episode and passed out, landed on his son and broke his son's leg. His son then a few years later in a car accident. All Other Systems: Reviewed and Negative Objective Vital Signs Date Time Temp Pulse Resp B/P (MAP) Pulse Ox O2 Delivery O2 Flow Rate FiO2 04/02/17 14:00 91 16 146/100 (115) 96 Room Air 04/02/17 12:00 Room Air 04/02/17 12:00 36.7 93 22 129/87 (101) 96 Room Air 04/02/17 10:00 91 16 127/83 (98) 96 Room Air 04/02/17 09:00 84 19 167/103 (124) 97 Room Air 04/02/17 08:30 85 19 143/95 (111) 97 Room Air 04/02/17 08:00 Room Air 04/02/17 08:00 36.6 84 17 155/92 (113) 95 Room Air 04/02/17 08:00 96 Room Air 04/02/17 07:00 90 16 137/88 (103) 94 04/02/17 06:30 90 22 136/91 (96) 90 04/02/17 06:02 101 25 140/102 (118) 97 04/02/17 05:31 96 16 138/96 (110) 98 04/02/17 04:31 95 13 161/113 (131) 98 04/02/17 04:00 36.5 04/02/17 04:00 89 14 138/80 (93) 96 04/02/17 04:00 96 CPAP 04/02/17 03:30 90 15 113/73 (90) 96 04/02/17 03:00 92 15 119/73 (84) 96 04/02/17 02:31 93 21 138/98 (107) 97 04/02/17 02:00 91 16 145/90 (100) 97 04/02/17 01:30 87 16 110/70 (88) 96 04/02/17 01:00 90 14 127/74 (90) 96 04/02/17 00:40 94 96 21 04/02/17 00:30 92 17 98/63 (75) 95 04/02/17 00:01 36.5 04/02/17 00:00 90 16 116/79 (92) 94 04/01/17 23:59 96 2.0 04/01/17 23:30 88 16 123/75 (88) 95 04/01/17 23:01 88 16 132/85 (97) 96 04/01/17 22:31 89 25 148/103 (128) 96 04/01/17 22:00 87 23 161/108 (125) 96 04/01/17 21:31 91 16 141/98 (111) 95 04/01/17 21:00 95 24 160/101 (126) 96 04/01/17 20:56 96 95 04/01/17 20:50 36.5 94 20 142/107 98 Nasal Cannula 3.0 04/01/17 20:50 96 23 142/107 (114) 95 04/01/17 20:05 90 153/97 95 Nasal Cannula 3.0 04/01/17 19:31 88 147/95 95 Nasal Cannula 3.0 04/01/17 19:07 88 20 165/111 95 Nasal Cannula 3.0 04/01/17 18:00 98 19 176/114 98 04/01/17 17:51 168/109 04/01/17 17:45 90 21 98 04/01/17 17:30 84 24 183/112 100 04/01/17 17:15 92 30 98 04/01/17 17:14 92 24 166/112 99 Nasal Cannula 3.0 04/01/17 17:00 90 27 166/112 94 04/01/17 16:46 92 Nasal Cannula 3.0 04/01/17 16:35 97 04/01/17 16:28 101 25 190/130 93 Room Air 04/01/17 16:26 92 Room Air 04/01/17 16:16 36.7 102 20 198/138 94 Room Air Physical Exam General Appearance: WD/WN, no apparent distress Eyes: normal inspection, sclerae normal ENT: hearing grossly normal Neck: trachea midline Respiratory/Chest: lungs clear, normal breath sounds, no respiratory distress, no accessory muscle use Cardiovascular: regular rate, rhythm, no edema, no gallop, no murmur Abdomen: normal bowel sounds, non tender, soft, no organomegaly, no pulsatile mass Extremities: normal range of motion, non-tender, normal inspection, no pedal edema, no calf tenderness Neurologic/Psychiatric: alert, normal mood/affect, oriented x 3 Skin: normal color, warm/dry, no rash Laboratory Results Last 24 Hours Test 04/01/17 16:35 04/01/17 21:54 04/01/17 22:39 04/02/17 01:39 White Blood Count 8.94 K/uL Red Blood Count 4.62 M/uL Hemoglobin 12.7 g/dL Hematocrit 39.4 % Mean Corpuscular Volume 85.3 fL Mean Corpuscular Hemoglobin 27.5 pg Mean Corpuscular Hemoglobin Concent 32.2 g/dl Platelet Count 175 K/uL Mean Platelet Volume 12.5 fL Neutrophils (%) (Auto) 68.0 % Lymphocytes (%) (Auto) 24.5 % Monocytes (%) (Auto) 4.9 % Eosinophils (%) (Auto) 1.9 % Basophils (%) (Auto) 0.3 % Neutrophils # (Auto) 6.07 K/uL Lymphocytes # (Auto) 2.19 K/uL Monocytes # (Auto) 0.44 K/uL Eosinophils # (Auto) 0.17 K/uL Basophils # (Auto) 0.03 K/uL RDW Standard Deviation 48.2 fL RDW Coefficient of Variation 15.5 % Immature Granulocyte % (Auto) 0.4 % Immature Granulocyte # (Auto) 0.04 K/uL Prothrombin Time 10.5 SECONDS Prothromb Time International Ratio 1.0 Activated Partial Thromboplast Time 25.1 SECONDS 90.5 SECONDS Partial Thromboplastin Ratio 1.0 3.5 Sodium Level 138 mmol/L Potassium Level 5.2 mmol/L Chloride Level 108 mmol/L Carbon Dioxide Level 24 mmol/L Anion Gap 6.0 mmol/L Blood Urea Nitrogen 46 mg/dl Creatinine 3.06 mg/dl Est Creatinine Clear Calc Drug Dose 29.7 ml/min Estimated GFR () 27.9 Estimated GFR (Non- 24.1 BUN/Creatinine Ratio 14.9 Random Glucose 263 mg/dl Calcium Level 8.7 mg/dl Total Creatine Kinase 799 U/L 517 U/L Creatine Kinase MB 9.1 ng/ml 6.0 ng/ml Creatine Kinase MB Ratio 1.1 1.2 Troponin I < 0.015 ng/ml 0.029 ng/ml Pro-B-Type Natriuretic Peptide 3136 pg/ml Bedside Glucose 69 mg/dl 153 mg/dl Test 04/02/17 01:46 04/02/17 04:30 04/02/17 04:36 04/02/17 04:45 Urine Color YELLOW Urine Appearance CLEAR Urine pH 5.0 Urine Specific [place] 1.014 Urine Protein NEG Urine Glucose (UA) 2+ Urine Ketones NEG Urine Occult Blood NEG Urine Nitrite NEG Urine Bilirubin NEG Urine Urobilinogen NEG Urine Leukocyte Esterase NEG Urine WBC (Auto) 0 /hpf Urine RBC (Auto) 0-4 /hpf Urine Hyaline Casts (Auto) 0 /lpf Urine Epithelial Cells (Auto) 0-5 /lpf Urine Bacteria (Auto) NEG Bedside Glucose 489 mg/dl 466 mg/dl White Blood Count 11.05 K/uL Red Blood Count 4.10 M/uL Hemoglobin 11.3 g/dL Hematocrit 35.3 % Mean Corpuscular Volume 86.1 fL Mean Corpuscular Hemoglobin 27.6 pg Mean Corpuscular Hemoglobin Concent 32.0 g/dl Platelet Count 160 K/uL Mean Platelet Volume 12.3 fL Neutrophils (%) (Auto) 75.7 % Lymphocytes (%) (Auto) 13.7 % Monocytes (%) (Auto) 7.4 % Eosinophils (%) (Auto) 2.2 % Basophils (%) (Auto) 0.6 % Neutrophils # (Auto) 8.37 K/uL Lymphocytes # (Auto) 1.51 K/uL Monocytes # (Auto) 0.82 K/uL Eosinophils # (Auto) 0.24 K/uL Basophils # (Auto) 0.07 K/uL RDW Standard Deviation 47.1 fL RDW Coefficient of Variation 15.2 % Immature Granulocyte % (Auto) 0.4 % Immature Granulocyte # (Auto) 0.04 K/uL Sodium Level 134 mmol/L Potassium Level 5.8 mmol/L Chloride Level 103 mmol/L Carbon Dioxide Level 21 mmol/L Anion Gap 10.0 mmol/L Blood Urea Nitrogen 54 mg/dl Creatinine 2.83 mg/dl Est Creatinine Clear Calc Drug Dose 31.4 ml/min Estimated GFR () 30.7 Estimated GFR (Non- 26.5 BUN/Creatinine Ratio 18.9 Random Glucose 519 mg/dl Estimated Average Glucose 237 mg/dl Hemoglobin A1c 9.9 % Calcium Level 7.8 mg/dl Phosphorus Level 3.6 mg/dl Magnesium Level 1.6 mg/dl Triglycerides Level 160 mg/dl Cholesterol Level 158 mg/dl HDL Cholesterol 69 mg/dl LDL Cholesterol, Calculated 57 mg/dl VLDL Cholesterol, Calculated 32 mg/dl Cholesterol/HDL Ratio 2.3 Beta-Hydroxybutyric Acid 25.68 mg/dL Test 04/02/17 07:40 04/02/17 08:47 04/02/17 09:30 04/02/17 09:35 Bedside Glucose 377 mg/dl 282 mg/dl Activated Partial Thromboplast Time 36.3 SECONDS Partial Thromboplastin Ratio 1.4 Total Creatine Kinase 454 U/L Creatine Kinase MB 5.9 ng/ml Creatine Kinase MB Ratio 1.3 Troponin I < 0.015 ng/ml Test 04/02/17 09:36 04/02/17 11:25 Bedside Glucose 255 mg/dl 243 mg/dl Assessment and Plan Patient is a pleasant 41 y/o male, with PMHx of CAD [place] w/ cardiac stenting in 2015, CKD stage IV s/p kidney transplant in 2001 on immunosuppressants, T1DM w/ insulin pump, DIANE, HTN, HLD, and anxiety/depression, who presented to the ED because of chest pressure radiating to L arm and acute pulmonary edema. Chest pain/Hypertensive emergency- ACS ruled out with serially negative troponins, ECG without significant ischemic changes. Discussed case with Cardiology--> CP related to pulm edema in setting of renal failure. No further ischemic evaluation necessary at this point. ECHO with unchanged WMAs, normal EF 55-60%, with new mild-mod mitral regurg - Admitted to ICU for Nitro gtt and now weaned off Nitro gtt - Trend cardiac enzymes - dc IV Heparin gtt - Started Coreg 3.125 mg BID here but is actually on Toprol XL 100mg qPM at home and will change back to that for tonight -continue IV hydralazine prn -received IV Bumex x 1 and had excellent response--> he has had low UOP as outpt lately on po metolazone, will defer further diuretics to his Burner Tender who is consulted -holding ACEI in setting of CHERI on CKD - Consult cardiology, appreciate recommendations -follow valvular disease with ECHO periodically CAD OK w/ cardiac stenting in 2016, HLD- follows w/ Dr. Hadley: - Continue ASA, Plavix, Lipitor - lipids acceptable CKD stage IV s/p kidney transplant in 2001 on immunosuppressants- baseline clinical sociologist used to be 1.5 but has slowly been rising over the last few months to 2.6- follows w/ Dr. Samson: Boxing And Pressing Supervisor was 3.0 on admisison, now down to 2.83 - Continue Rapamune, Prograf, Prednisone - Follow PRP -checking Prograf and Rapamune levels -holding Accupril and metolazone T1DM on insulin pump- hgbA1c 9.9% here. Pt usually tries to keep his HgbA1C around 8.5%, doesn't like to go lower because he has too many hypoglycemic episodes then--> this once caused him to fall onto his son, breaking his son's leg-son has now since then and he sites this as reason to not tightly control his glucose -remains on insulin gtt while here -can switch back to home insulin pump prior to discharge - Pharmacy consulted for glycemic management DIANE: CPAP HS Anxiety, depression: Continue Zoloft Acne on chronic Doxycycline therapy DVT prophylaxis:SQ heparin Code Status: LEVEL I, FULL Dispo: to home likely in 1 day
--- NOTE | 2017-04-02 15:56 | NEPHROLOGY CONSULTATION ---
DATE OF CONSULTATION: 04/02/2017 REFERRING PHYSICIAN: [facility] hospitalist service. PROBLEM: Chronic renal insufficiency status post renal transplant. SUBJECTIVE: Mr. Dalton is a 41-year-old white male. He was born and raised in [place]. He attended [employer] in [place] for 2 years and received an associate degree. 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 He does not smoke and denies the regular use of alcohol, although he does admit to an occasional beer. He is . He presented here yesterday with increasing symptoms of shortness of breath as well as some chest discomfort radiating into his left arm. PROBLEM LIST: 1. Type 1 diabetes mellitus. 2. History of hypertension. 3. Renal transplant for diabetic nephropathy. 4. Chronic renal insufficiency. 5. History of anxiety and depression. 6. 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 7. Coronary artery disease status post angiogram, angioplasty and placement of a drug-eluting stent. 8. Congestive heart failure. Mr. Dalton has a longstanding history of known type 1 insulin-dependent diabetes mellitus. Over the years, he was poorly controlled. His diabetes was complicated by retinopathy, for which he has undergone a vitrectomy many years ago. Otherwise, he has only background diabetic retinopathy, which has been relatively stable. He has no significant symptoms or changes of peripheral neuropathy. He does have associated hypertension and diabetic nephropathy with resulting end-stage renal disease. In October of 2000, he developed symptomatic uremia and volume overload and at that time, was begun on maintenance dialysis. In March of 2001, he received a living related donor transplant from his mother. Initially, his renal function was relatively stable with serum creatinines in the range of about 1.6-1.8 mg/dL. However, in 2002, he developed an acute rejection episode. That was treated with steroids. His immunosuppression was changed at that time from a combination of tacrolimus and CellCept to a combination of tacrolimus, sirolimus and prednisone. 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 About 2 years ago, he presented here with an episode of chest discomfort. He did have an increase in his cardiac isoenzymes. He had changes consistent with a lateral wall ST segment elevation RI. He was taken to the pathology laboratory aide. Multiple vessels were involved, but the most significant vessel at the time was his LAD. He had an angioplasty and placement of a drug-eluting stent and since that time, has been on aspirin and clopidogrel. More recently, he has been noted to have moderate obstructive sleep apnea. He is now followed by Dr. Mariscal. He is on CPAP with 13 cm of water pressure in a C-flex setting of 2. He was last seen in the office by me on February 20. At that time, he said that he was feeling quite well. He felt that his diabetes was doing well. He was using an insulin pump at that time. However, he admitted that he had not "touched it" in the year as far as adjusting his insulin rates. He was unaware of his basal rates. He said he believed he was using between 20 and 30 units of insulin a day in his pump. He denied having polyuria, polydipsia or any new target organ symptoms of diabetes. However, his hemoglobin A1c at that time was in excess of 10%. Again, he has a history of end-stage renal disease and received a transplant from his mother about 16 years ago. He has been quite compliant with his immunosuppression regimen, which included tacrolimus 3 mg taken twice daily, sirolimus 4 mg taken once daily and prednisone 5 mg daily. His most recent outpatient serum creatinine was about 2.5 mg/dL. Additionally, he continued to be hypertensive. His blood pressure has been less swell controlled in the latter part of 2017. His antihypertensive regimen when seen in January included metoprolol succinate ER 100 mg daily and quinapril 20 mg daily. He was not taking a diuretic. However, because of his elevated blood pressure at that time and complaints of occasional swelling of his lower extremities, metolazone 10 mg daily was added to his regimen. He also has a history of hypercholesterolemia that has been fairly well controlled with atorvastatin 80 mg taken at bedtime. He was also taking an 81 mg aspirin a day. He was taking his clopidogrel 75 mg daily as well. He was not complaining of any symptoms of angina or shortness of breath at that time. He also has a history of gouty arthritis, for which he has been maintained on allopurinol 150 mg daily. He also has a history of depression, which was in large measure situational. Part of his depressive symptoms ____ with the of his son that was killed after he ran into the street in front of a car. Apparently, Mr. Dalton has discussed suicide in the past, but that has not been a recent issue. His current hospitalization came about yesterday when he came into the hospital, complaining of chest pain and shortness of breath. He said that he had been taking his metolazone and insisted that he was following a restricted sodium diet. However, he and his did go out for supper on Friday evening. Apparently, he had a hamburger with cheese and zepeda. Ketchup and pickles were also part of his meal. He also had [employer] fries, which he recognizes were salted. The following day, he developed increasing symptoms of shortness of breath with some vague left-sided chest discomfort, radiating toward his arm. He was admitted. Fortunately, his troponins are negative and his EKG is stable. His echocardiogram showed a reasonable ejection fraction with some wall motion abnormalities, likely associated with his previous cardiac event. Since admission, he has diuresed over 2 liters and feels considerably better. He is no longer having any chest discomfort. At the time of admission, his serum creatinine was just over 3 mg/dL, but it improved this morning to 2.83 mg/dL. His BUN was disproportionally elevated consistent with significant volume overload/congestive heart failure. His usual outpatient medications are as followed: Allopurinol 300 mg daily, aspirin 81 mg daily, atorvastatin 80 mg daily, his insulin via insulin pump, clopidogrel 75 mg daily, Lyrica 75 mg twice daily, metolazone 10 mg daily, metoprolol succinate ER 100 mg daily, omeprazole 20 mg daily, prednisone 5 mg daily, quinapril 20 mg twice daily, sertraline 75 mg daily, sirolimus 4 mg daily, and tacrolimus 3 mg twice daily. ALLERGIES: No known medication allergies, although HE DID HAVE HIVES ASSOCIATED WITH THE USE OF HUMULIN R IN THE PAST. The remainder of his past medical history, family history, social history and review of systems is present on his previous and current admission notes and consult and will not be repeated. OBJECTIVE: GENERAL: On physical exam, Mr. Dalton appears as a somewhat overweight middle-aged gentleman, who was in no distress when seen. VITAL SIGNS: Showed a blood pressure 139/92 with a pulse of 96 and regular. He is afebrile. SKIN: Shows normal skin turgor. He has no rash or infiltrative skin disease. He has scars on his left arm from the creation of his AV fistula, which is nonfunctional. She has a right lower quadrant scar from his kidney transplant. LYMPHATICS: Show no palpable lymphadenopathy. HEAD: Normal. EYES: Grossly normal. The ocular fundi were not examined today. Recently in my office, they showed evidence of old diabetic retinopathy. The vascular appeared to be reasonably normal and there was no evidence of significant hypertensive retinopathy. EARS, NOSE, MOUTH AND THROAT: Unremarkable. Oral mucous membranes are moist. NECK: Supple. I did not note any jugular venous distention. He has no carotid bruit and there is no thyromegaly. CHEST: Clear to auscultation. I heard no wheezes, rales or rhonchi. CARDIAC: Showed a regular rhythm. S1 and S2 are normal. I did not hear any extrasystoles. He has a grade 2/6 systolic murmur at the base, radiating toward the neck. No gallop sounds were heard. ABDOMEN: Nontender. There is no organomegaly or mass. His renal graft is palpable in the right lower quadrant. It is nontender. There is a very faint bruit over the graft. Bowel sounds are present. EXTREMITIES: Show no cyanosis, clubbing or peripheral edema. Peripheral pulses are markedly diminished, but they are present. His left fifth finger is foreshortened secondary to an amputation because of ischemia that was related to his fistula. He has no other ischemic changes in his digits. NEUROLOGIC: Shows no lateralizing changes. He does have some decrease in protective sensation in his feet. CURRENT LABORATORY WORK: Shows a white count of 11,050 with an essentially normal differential. His hemoglobin is 11.3, his hematocrit 35.3 and his platelet count 160,000. His PTT on a heparin drip was 36.3 with a PTTR of 1.4. On admission, his prothrombin time was 10.5 with an INR of 1.0. His urinalysis today shows a specific gravity of 1.014. He has 2+ glucose. There is no proteinuria. His BUN sediment shows 0-4 red cells per high power field and 0-5 epithelial cells per low power field. There were no bacteria. His clinical chemistries from today show a sodium of 134 mmol/L, potassium 5.8 mmol/L, chlorides 103 mmol/L, and CO2 content 21 mmol/L. His BUN is 54 and his creatinine 2.83. Blood sugars have varied from 519 this morning to a current level of 243 on his insulin drip. His serum calcium is 7.8 with a phosphate of 3.6 and magnesium of 1.6. His total cholesterol 158, triglycerides 160, his HDL cholesterol is 69 and his LDL cholesterol is 57. Other laboratory studies indicate pending levels of tacrolimus and sirolimus. His chest x-ray shows evidence of cardiomegaly with pulmonary vascular congestion. He has some airspace opacities consistent with interstitial edema. That was done on admission. Since admission, the patient has received bumetanide. That has led to diuresis thus far of just over 2.2 liters. His weight is down about 2.2 kilograms. Other laboratory work shows a troponin of less than 0.015 this morning. Earlier this morning, his troponin was 0.029. That was the highest level. ASSESSMENT: Mr. Dalton was admitted with some vague chest discomfort and shortness of breath as well as physical findings and x-ray changes consistent with significant volume overload/congestive heart failure. He is symptomatically improved with volume reduction from the use of loop diuretics. His serum creatinine was higher on admission, but has improved consistent with improvement in his volume status. His blood sugars remain significantly high. RECOMMENDATIONS: I would continue to titrate his blood sugar down with his insulin drip. Adjustments can then be made as far as his insulin pump is concern. Getting Dr. Cruz and the diabetes group involved would be an appropriate thing to do. At least for now, would continue him on a loop diuretic in addition to his metolazone. We should see a further reduction in his serum creatinine back to a level of about 2.3-2.5 mg/dL. I would continue him on his usual medications once he has achieved his usual volume status, but recommend that he use a loop diuretic, either Lasix or Bumex, for any 3-pound weight gain over his baseline once we establish his baseline during this hospitalization. Thank you for involving me in his inpatient care.
[2017-04-02] MEDS: MULTIVITAMIN TAB PO SCH (19:23)
[2017-04-02] MEDS: SERTRALINE HCL 100 MG TAB PO SCH (19:24)
[2017-04-02] MEDS: DOXYCYCLINE HYCLATE 50 MG CAP PO SCH (19:24)
[2017-04-02] MEDS: CLOPIDOGREL BISULFATE 75 MG TAB PO SCH (19:25)
[2017-04-02] MEDS: ATORVASTATIN 40 MG TAB PO SCH (19:25)
[2017-04-02] MEDS: ASPIRIN 81 MG ECTAB PO SCH (19:25)
[2017-04-02] MEDS ORDERED: METOPROLOL SUCC 50MG EXT REL TAB PO SCH (21:00)
[2017-04-02] MEDS: HEPARIN SOD 5000 UNIT/0.5 ML CARP SQ SCH (23:04)
[2017-04-03 03:30] VITALS: BP 158/85; PULSE 80; TEMP 36.9; O2SAT 95
[2017-04-03] MEDS: HEPARIN SOD 5000 UNIT/0.5 ML CARP SQ SCH ×2 (06:15→13:54)
[2017-04-03 07:04] LABS: HEMATOCRIT 35.5 % (42-52); HEMOGLOBIN 11.8 g/dL (14.0-18.0); MEAN CELL VOLUME 82.9 fL (80-100); MEAN CORPUSCULAR HEMOGLOBIN 27.6 pg (25-34); MEAN CORPUSCULAR HGB CONC 33.2 g/dl (32-36); MEAN PLATELET VOLUME 11.9 fL (7.4-10.4); PLATELET COUNT 162 K/uL (130-400); RED CELL DISTRIBUTION WIDTH CV 15.2 % (11.5-14.5); RED CELL DISTRIBUTION WIDTH SD 45.7 fL (36.4-46.3); WHITE BLOOD COUNT 11.48 K/uL (4.8-10.8)
[2017-04-03 07:36] VITALS: BP 167/87; PULSE 82; TEMP 36.8; O2SAT 97
[2017-04-03 07:37] LABS: CALCIUM 8.7 mg/dl (8.5-10.1); CREATININE 2.56 mg/dl (0.60-1.40); POTASSIUM 4.2 mmol/L (3.5-5.1)
[2017-04-03] MEDS: INSULIN ASPART 100 UNITS/ML 3 ML PEN SC SCH (08:08)
[2017-04-03] MEDS: SIROLIMUS 0.5 MG TAB PO SCH (08:09)
[2017-04-03] MEDS: INSULIN REGULAR 250 UNITS in SODIUM CHLORIDE 0.9% 250ML 250 ML IV SCH (08:10)
[2017-04-03] MEDS: TACROLIMUS 1 MG CAP PO SCH (08:10)
[2017-04-03] MEDS: PREGABALIN 75 MG CAP PO SCH (08:14)
--- NOTE | 2017-04-03 09:47 | Pharmacy Progress Note ---
Glycemic Control Progress Note Date of Service Apr 03, 2017. Scope Glycemic Pharmacist consulted for glycemic control to write orders per [facility] inpatient glycemic control protocol. Objective Accuchecks BSG (last 24hrs): Test 04/02/17 11:25 04/02/17 13:35 04/02/17 15:03 04/02/17 16:03 Bedside Glucose 243 mg/dl (70-99) 123 mg/dl (70-99) 115 mg/dl (70-99) 118 mg/dl (70-99) Test 04/02/17 17:27 04/02/17 17:41 04/02/17 17:58 04/02/17 19:03 Bedside Glucose 86 mg/dl (70-99) 86 mg/dl (70-99) 119 mg/dl (70-99) 246 mg/dl (70-99) Test 04/02/17 20:01 04/02/17 21:02 04/02/17 22:03 04/02/17 22:58 Bedside Glucose 318 mg/dl (70-99) 342 mg/dl (70-99) 307 mg/dl (70-99) 280 mg/dl (70-99) Test 04/02/17 23:53 04/03/17 01:04 04/03/17 02:05 04/03/17 02:54 Bedside Glucose 226 mg/dl (70-99) 144 mg/dl (70-99) 97 mg/dl (70-99) 84 mg/dl (70-99) Test 04/03/17 04:17 04/03/17 05:05 04/03/17 05:48 04/03/17 06:06 Bedside Glucose 180 mg/dl (70-99) 258 mg/dl (70-99) 230 mg/dl (70-99) 198 mg/dl (70-99) Test 04/03/17 06:51 04/03/17 06:56 04/03/17 07:58 Random Glucose 193 mg/dl (70-99) Bedside Glucose 191 mg/dl (70-99) 199 mg/dl (70-99) HbA1c: Test 04/02/17 04:45 Hemoglobin A1c 9.9 % (4.5-5.6) H Recent Pertinent Medications The patient is currently receiving: * Starting IV insulin infusion per severe stress protocol * Goal Range 100 - 180 mg/dl * Average drip rate 1.0-1.3units/hr Outpatient Anti-Diabetic Meds Humalog pump Goal range 150-200mg/dl Basal rate: 0.75units/hr Carb ratio: 1 unit per 30 grams CHO consumed Correction factor: 45mg/dL/unit Assessment & Plan ASSESSMENT: * See progress note from 04/02 for more background info, in short: * Pt receiving SQ basal bolus insulin regimen for hyperglycemia secondary to baseline DM (outpatient regimen on hold) * Patient is currently receiving an average of 24-35 units of insulin per day from insulin drip * Pt ready to transition back to humalog pump from home, pt has all of his supplies here to do so. * Additional notes / comments: * Pt has had many negative experiences with hypoglycemia, and therefore keeps his goal BSG at 150-200mg/dl PLAN FOR INPATIENT GLYCEMIC CONTROL: * D/c Insulin drip at 1300 today - overlap x 3 hours with humalog pump * Resume humalog insulin pump now (1000) per outpatient settings as above RECOMMENDATIONS FOR DISCHARGE: * Continue to follow up with Dr Samson for glycemic control * Please note that the plan above was derived based on current level of insulin resistance and hospital stress. These recommendations are appropriate for inpatient admission only. Plan of care upon discharge will need to be reassessed to avoid potential outpatient hypo/hyperglycemia. Thank you.
[2017-04-03 11:29] VITALS: BP 170/93; PULSE 71; TEMP 36.6; O2SAT 99
--- NOTE | 2017-04-03 11:39 | NEPHROLOGY PROGRESS NOTE ---
DATE: 04/03/2017 SUBJECTIVE: Mr. Dalton says that he is feeling fine. He denies having any shortness of breath. He has had no PND. He had a comfortable night sleep. He has been up walking around in his room today. He has no symptoms of uremia or volume overload. He diuresed nicely yesterday. He has no other immediate symptoms or complaints. OBJECTIVE: GENERAL: On physical examination, he appears relatively well. Certainly, he is in no distress. VITAL SIGNS: He is afebrile (36.8), his blood pressure 167/87 with a pulse of 82 and regular, respiratory rate is 18, his pulse ox 95%-97% on room air. SKIN: Shows multiple tattoos. He has no rash or infiltrative skin disease. IVs are placed in both arms. His skin turgor is normal. He has scars from prior surgical procedures. LYMPHATICS: Show no palpable lymphadenopathy. HEAD: Normal. EYES: Grossly normal. The ocular fundi were not examined. EARS, NOSE, MOUTH AND THROAT: Unremarkable. Oral mucous membranes are moist. NECK: Supple. There is no jugular venous distention. There is no carotid bruit or thyromegaly. CHEST: Clear to auscultation. I hear no wheezes, rales or rhonchi. CARDIAC: Shows a regular rhythm. S1 and S2 are normal. He has a grade 2/6 systolic murmur at the base radiating toward the neck. ABDOMEN: Nontender. He has no organomegaly or mass. He has a palpable renal transplant in the right lower quadrant of his abdomen. It is nontender. There is a very faint bruit over the graft. EXTREMITIES: Show no cyanosis, clubbing or peripheral edema. Peripheral pulses are diminished, but present. The tip of his left fifth finger is absent. NEUROLOGIC: Shows no lateralizing changes. LABORATORY DATA: Since his admission, his output has exceeded his intake by more than 3 liters. Pertinent laboratory work from today shows a white count of 11,480, his hemoglobin 11.8, his hematocrit 35.5, his platelet count 162,000. Clinical chemistries show a sodium of 137 mmol/L, potassium 4.2 mmol/L, chloride 104 mmol/L, and CO2 content 23 mmol/L. His BUN is 54, his creatinine is down to 2.56. Blood sugars vary from a low of 191-230 over the course of the past 18 hours. ASSESSMENT: Mr. Dalton certainly appears to be close to being euvolemic at the current time. His renal function is stable at his recent baseline. I think that the recent episode was secondary to volume overload related to dietary indiscretion. He does, however, have known coronary artery disease. RECOMMENDATIONS: From the renal perspective, he could probably be discharged if felt to be otherwise stable. I will see him as an outpatient. He is to be discharged on his usual medications including metolazone 10 mg daily. He should be instructed to use a loop diuretic (either Lasix or Bumex) if he has an acute 3-pound weight gain. I will certainly reinforce that as an outpatient when I see him. No other immediate recommendations. I suggested to him that once discharged, he should schedule himself with an appointment with me in a week.
[2017-04-03] MEDS ORDERED: ENALAPRIL MALEATE 10 MG TAB PO ONE (14:00)
[2017-04-03] MEDS ORDERED: AMLODIPINE BESYLATE 5 MG TAB PO ONE (15:33)
--- NOTE | 2017-04-03 16:00 | Hospitalist Progress Note ---
Hospitalist Progress Note Date of Service Apr 03, 2017. (Dayana Pineda .PRASADC) Subjective Pt evaluation today including: conversation w/ patient, conversation w/ family ( at bedside), physical exam, chart review, lab review, review of inpatient medication list Pain: None PO Intake: Tolerating PO diet Voiding: no voiding problems Patient reports feeling well. He denies any recurrence of chest pain. He denies any complaints currently and states he is to be weaned off the insulin drip this afternoon. The patient denies fevers, chills, sweats, chest pain, palpitations, claudication, cough, wheezing, shortness of breath, nausea, vomiting, abdominal pain, dysuria, hematuria, urinary retention, paralysis, weakness, numbness and tingling. Additional Comments: See HPI for pertinent positives and negatives. All other systems reviewed and negative. (Dayana Pineda, PRASADC) Objective Vital Signs Date Time Temp Pulse Resp B/P (MAP) Pulse Ox O2 Delivery O2 Flow Rate FiO2 04/03/17 12:00 Room Air 04/03/17 11:29 36.6 71 18 170/93 (118) 99 Room Air 04/03/17 08:00 Room Air 04/03/17 07:36 36.8 82 18 167/87 (113) 97 Room Air 04/03/17 04:00 Room Air 04/03/17 03:30 36.9 80 16 158/85 (109) 95 04/03/17 00:01 Room Air 04/02/17 23:42 36.7 89 18 150/87 (108) 96 Room Air 04/02/17 20:00 Room Air 04/02/17 19:23 36.7 96 18 177/91 (119) 94 Room Air 04/02/17 18:31 36.5 98 18 166/98 (120) 99 Room Air 04/02/17 17:42 36.6 86 16 97 04/02/17 16:00 Room Air 04/02/17 16:00 36.6 86 20 137/94 (108) 97 Room Air (Dayana Pineda PA-C) Physical Exam Notes: General appearance: Well-developed, well-nourished, no apparent distress Head: Normocephalic, atraumatic Eyes: Normal inspection, PERRL, EOMI ENT: Normal ENT inspection, hearing grossly normal, pharynx normal Neck: Supple, no JVD, trachea midline Respiratory/Chest: Lungs clear to auscultation, normal breath sounds, no respiratory distress Cardiovascular: Regular rate & rhythm, no gallop, no murmur Abdomen/GI: Normal bowel sounds, non-tender, soft Extremities/Musculoskeletal: Normal inspection, no calf tenderness, no pedal edema Neurological/Psych: Alert, normal mood/affect, oriented x 3 Skin: Normal color, warm/dry, no rash (Dayana Pineda, HARESH) Laboratory Results Last 24 Hours Test 04/02/17 16:03 04/02/17 17:27 04/02/17 17:41 04/02/17 17:58 Bedside Glucose 118 mg/dl 86 mg/dl 86 mg/dl 119 mg/dl Test 04/02/17 19:03 04/02/17 20:01 04/02/17 21:02 04/02/17 22:03 Bedside Glucose 246 mg/dl 318 mg/dl 342 mg/dl 307 mg/dl Test 04/02/17 22:58 04/02/17 23:53 04/03/17 01:04 04/03/17 02:05 Bedside Glucose 280 mg/dl 226 mg/dl 144 mg/dl 97 mg/dl Test 04/03/17 02:54 04/03/17 04:17 04/03/17 05:05 04/03/17 05:48 Bedside Glucose 84 mg/dl 180 mg/dl 258 mg/dl 230 mg/dl Test 04/03/17 06:06 04/03/17 06:51 04/03/17 06:56 04/03/17 07:58 Bedside Glucose 198 mg/dl 191 mg/dl 199 mg/dl White Blood Count 11.48 K/uL Red Blood Count 4.28 M/uL Hemoglobin 11.8 g/dL Hematocrit 35.5 % Mean Corpuscular Volume 82.9 fL Mean Corpuscular Hemoglobin 27.6 pg Mean Corpuscular Hemoglobin Concent 33.2 g/dl RDW Standard Deviation 45.7 fL RDW Coefficient of Variation 15.2 % Platelet Count 162 K/uL Mean Platelet Volume 11.9 fL Sodium Level 137 mmol/L Potassium Level 4.2 mmol/L Chloride Level 104 mmol/L Carbon Dioxide Level 23 mmol/L Anion Gap 9.0 mmol/L Blood Urea Nitrogen 54 mg/dl Creatinine 2.56 mg/dl Est Creatinine Clear Calc Drug Dose 34.0 ml/min Estimated GFR () 34.6 Estimated GFR (Non- 29.9 BUN/Creatinine Ratio 21.1 Random Glucose 193 mg/dl Calcium Level 8.7 mg/dl Test 04/03/17 08:56 04/03/17 10:04 04/03/17 10:53 Bedside Glucose 256 mg/dl 208 mg/dl 151 mg/dl (Dayana Pineda ., PA-C) Assessment and Plan 41 y/o male with a history of CAD, [place] w/ cardiac stenting in 2015, CKD stage IV s/p kidney transplant in 2001 on immunosuppressants, T1DM w/ insulin pump, DIANE, HTN, HLD, and anxiety/depression who presented with chest pain and acute pulmonary edema. Chest pain, hypertensive emergency--chest pain resolved, BP improving -Admit to ICU for nitro drip, since weaned off and on telemetry. No acute events overnight. Pt in sinus rhythm with HR 80s-90s. -Serial troponins negative, EKGs no acute ischemic changes -Cardiology consulted, appreciate recs: No evidence of ischemia. Chest pain not due to ACS but likely from pulmonary vascular congestion in setting of renal failure. Do not recommend further cardiac testing/intervention at this point. -Continue Toprol XL 100 mg PO qd -Quinapril had been on hold due to CHERI, now back to baseline. Will resume and convert to enalapril 10 mg PO qd, 1 dose now -BP still elevated, will start amlodipine 5 mg PO qd, one dose now -Continue hydralazine IV prn Acute pulmonary edema, no h/o CHF--resolving -Echo shows EF 55-60%. Moderate hypokinesis of mid to apical anterior and lateral dominguez. Mild to moderate mitral regurg. Compared to 03/27/15 study, WMA more pronounced and mitral regurg new. -Beta raine as above -Good response with Bumex x 1 -Nephrology consulted, appreciate recs: Recommend continuing metolazone 10 mg daily on discharge and can take an additional loop diuretic prn if pt has acute 3 lb weight gain -UO 4475 cc, net balance -2690 cc on 04/02 CHERI on CKD stage IV--resolving -Baseline creatinine 2.3-2.5 per nephro -Creatinine 2.56 on 04/03, down from 2.83 -Resume enalapril 10 mg PO hs (quinapril non-formulary) CAD [place] w/ cardiac stenting in 2016, HLD, follows w/ Dr. Hadley--stable - Continue ASA, Plavix, Lipitor 80 mg PO qd - lipids acceptable Kidney transplant in 2001 on immunosuppressants- - Continue Rapamune 2 mg PO BID, Prograf 3 mg PO BID, Prednisone 5 mg PO hs - MONA restarted, metolazone on hold T1DM on insulin pump- hgbA1c 9.9% here. Pt usually tries to keep his HgbA1C around 8.5%, doesn't like to go lower because he has too many hypoglycemic episodes then--> this once caused him to fall onto his son, breaking his son's leg-son has now since then and he cites this as reason to not tightly control his glucose -Weaned off insulin drip today -Can switch back to home insulin pump prior to discharge - Pharmacy consulted for glycemic management DIANE -CPAP Anxiety, depression -Continue Zoloft 100 mg PO hs Acne--stable -Continue Doxycycline 50 mg PO qd DVT prophylaxis -Heparin 5000 units SC q8h Code Status -Level I, FULL RESUSCITATION STATUS Continued [facility] stay due to: abnormal vital signs (inadequate BP control) (Dayana Pineda ., PRASADC) Patient left AMA before I could see him. (Farshad Patel M.D.)
[2017-04-04] MEDS ORDERED: AMLODIPINE BESYLATE 5 MG TAB PO SCH (09:00)
[2017-04-04] MEDS ORDERED: ENALAPRIL MALEATE 10 MG TAB PO SCH (21:00)
--- NOTE | 2017-04-15 16:03 | Discharge Summary ---
Discharge Summary Date of Service Apr 03, 2017. Discharge Summary Admission Date: Apr 01, 2017 at 19:03 Discharge Date: Apr 03, 2017 Discharge Disposition: Home (Left against medical advice) Principal Diagnosis: Hypertensive emergency Problems/Secondary Diagnoses: Acute pulmonary edema, CHERI, CAD, [place] w/ cardiac stenting in 2015, CKD stage IV s/ p kidney transplant in 2001 on immunosuppressants, T1DM w/ insulin pump, DIANE, HTN, HLD, anxiety/depression Immunizations: Have You Had Influenza Vaccine: Yes Influenza Vaccine Date: Dec 10, 2009 History of Tetanus Vaccine?: No History of Pneumococcal: No History of Hepatitis B Vaccine: Yes Procedures: SINGLE VIEW CHEST CLINICAL HISTORY: Atypical chest pain. FINDINGS: An AP, portable, upright chest radiograph is compared to study dated 03/25/2015. The examination is degraded by portable technique and patient rotation. The heart appears enlarged. There is pulmonary vascular congestion. Bilateral airspace opacities suggest interstitial edema. There is no large pleural effusion or pneumothorax identified. The bony thorax is grossly intact. IMPRESSION: 1. Cardiomegaly with pulmonary vascular congestion. 2. Bilateral airspace opacities with a perihilar distribution suggest interstitial edema. Correlate clinically for evidence of superimposed pneumonia. Echocardiogram: Interpretation Summary * Name: JEIMY GALINDO Study Date: 04/02/2017 07:49 AM BP: 138/80 mmHg * [place] [facility] [place]S\1 HR: 87 * : 1975 (M/d/yyyy) Gender: Male Height: 63 in * Age: 41 yrs Ethnicity: NM Weight: 176 lb * Ordering Physician: Dominique Dill * Referring Physician: Self, Referred * Performed By: Sydni Mckeon, [facility] * * Reason For Study: CHEST PAIN * BSA: 1.8 m2 * -- Conclusions -- * 1. Normal LV size. Mild concentric LVH. * 2. Normal LV function, LVEF 55-60%. Moderate hypokinesis of mid to apical anterior and lateral dominguez. * 3. RV not well visualized but size and function appears grossly normal. * 4. Mild to moderate mitral regurgitation. * 5. Aortic sclerosis without stenosis. * 6. Normal estimated RA and PA pressures. * 7. Compared with prior study on 03/27/2015: Regional wall motion abnormality is more pronounced. Mitral regurgitation is new. Procedure Details * A complete two-dimensional transthoracic echocardiogram was performed (2D, M- mode, Doppler and color flow Doppler). Left Ventricle * The left ventricle is grossly normal size. * There is mild concentric left ventricular hypertrophy. * Ejection Fraction = 55-60%. * Moderate hypokinesis of mid to apical anterior and lateral dominguez Right Ventricle * The right ventricle is not well visualized. * The right ventricle is grossly normal size. * The right ventricular systolic function is normal as assessed by tricuspid annular plane systolic excursion (TAPSE) (normal >1.5 cm). Atria * The left atrial size is normal. * Right atrial size is normal. * No ASD detected; PFO is not assessed. Mitral Valve * The mitral valve is grossly normal. * There is no mitral valve stenosis. * There is mild to moderate mitral regurgitation. Tricuspid Valve * The tricuspid valve is not well visualized, but is grossly normal. * There is trace tricuspid regurgitation. * Right ventricular systolic pressure is elevated at 30-40mmHg. Aortic Valve * The aortic valve is trileaflet. * Aortic valve sclerosis mild, without significant aortic valvular stenosis. * No hemodynamically significant valvular aortic stenosis. * There is no significant aortic regurgitation. Pulmonic Valve * The pulmonic valve is not well seen, but is grossly normal. * Pulmonic stenosis is absent. * Trace pulmonic valvular regurgitation. Great Vessels * The aortic root and proximal ascending aorta are normal sized. Pericardium/Pleural * There is no pericardial effusion. Great Vessels * Normal inferior vena cava size and collapsability with sniff indicates a normal right atrial pressure of 3 mmHg There is no evidence of pulmonary hypertension. The PA systolic pressure is less than 36 mmHg. Consultations: Cardiology Nephrology Discharge Exam Patient reports feeling well. He denies any recurrence of chest pain. He denies any complaints currently and states he is to be weaned off the insulin drip this afternoon. The patient denies fevers, chills, sweats, chest pain, palpitations, claudication, cough, wheezing, shortness of breath, nausea, vomiting, abdominal pain, dysuria, hematuria, urinary retention, paralysis, weakness, numbness and tingling. Constitutional: No fever, No chills, No sweats Eyes: No worsening of vision, No eye pain, No diplopia ENT: No hearing loss, No nasal symptoms, No trouble swallowing Respiratory: No cough, No wheezing, No shortness of breath Cardiovascular: No chest pain, No claudication, No palpitations Abdomen: No pain, No nausea, No vomiting Musculoskeletal: No joint pain, No muscle pain, No swelling Genitourinary - Male: No dysuria, No urinary retention, No hematuria Neurologic: No paralysis, No weakness, No numbness/tingling Integumentary: No rash, No itch, No color change General appearance: Well-developed, well-nourished, no apparent distress Head: Normocephalic, atraumatic Eyes: Normal inspection, PERRL, EOMI ENT: Normal ENT inspection, hearing grossly normal, pharynx normal Neck: Supple, no JVD, trachea midline Respiratory/Chest: Lungs clear to auscultation, normal breath sounds, no respiratory distress Cardiovascular: Regular rate & rhythm, no gallop, no murmur Abdomen/GI: Normal bowel sounds, non-tender, soft Extremities/Musculoskeletal: Normal inspection, no calf tenderness, no pedal edema Neurological/Psych: Alert, normal mood/affect, oriented x 3 Skin: Normal color, warm/dry, no rash Hospital Course 41 y/o male with a history of CAD, [place] w/ cardiac stenting in 2016, CKD stage IV s/p kidney transplant in 2001 on immunosuppressants, T1DM w/ insulin pump, DIANE, HTN, HLD, and anxiety/depression who presented with chest pain and acute pulmonary edema. Chest pain, hypertensive emergency--chest pain resolved, BP improving -Admit to ICU for nitro drip, since weaned off and on telemetry. No acute events overnight. Pt in sinus rhythm with HR 80s-90s. -Serial troponins negative, EKGs no acute ischemic changes -Cardiology consulted, appreciate recs: No evidence of ischemia. Chest pain not due to ACS but likely from pulmonary vascular congestion in setting of renal failure. Do not recommend further cardiac testing/intervention at this point. -Continue Toprol XL 100 mg PO qd -Quinapril had been on hold due to CHERI, now back to baseline. Will resume and convert to enalapril 10 mg PO qd, 1 dose now -BP still elevated, will start amlodipine 5 mg PO qd, one dose now -Continue hydralazine IV prn Acute pulmonary edema, no h/o CHF--resolving -Echo shows EF 55-60%. Moderate hypokinesis of mid to apical anterior and lateral dominguez. Mild to moderate mitral regurg. Compared to 03/27/15 study, WMA more pronounced and mitral regurg new. -Beta raine as above -Good response with Bumex x 1 -Nephrology consulted, appreciate recs: Recommend continuing metolazone 10 mg daily on discharge and can take an additional loop diuretic prn if pt has acute 3 lb weight gain -UO 4475 cc, net balance -2690 cc on 04/02 CHERI on CKD stage IV--resolving -Baseline creatinine 2.3-2.5 per nephro -Creatinine 2.56 on 04/03, down from 2.83 -Resume enalapril 10 mg PO hs (quinapril non-formulary) CAD [place] w/ cardiac stenting in 2015, HLD, follows w/ Dr. Hadley--stable - Continue ASA, Plavix, Lipitor 80 mg PO qd - Lipids acceptable Kidney transplant in 2001 on immunosuppressants- - Continue Rapamune 2 mg PO BID, Prograf 3 mg PO BID, Prednisone 5 mg PO hs - MONA restarted, metolazone on hold T1DM on insulin pump- hgbA1c 9.9% here. Pt usually tries to keep his HgbA1C around 8.5%, doesn't like to go lower because he has too many hypoglycemic episodes then--> this once caused him to fall onto his son, breaking his son's leg-son has now since then and he cites this as reason to not tightly control his glucose -Weaned off insulin drip today -Can switch back to home insulin pump prior to discharge - Pharmacy consulted for glycemic management DIANE -CPAP Anxiety, depression -Continue Zoloft 100 mg PO hs Acne--stable -Continue Doxycycline 50 mg PO qd DVT prophylaxis -Heparin 5000 units SC q8h Code Status -Level I, FULL RESUSCITATION STATUS Patient left AMA despite inadequate BP control. The patient left before I or the attending physician could see him again to explain the risks of leaving AMA and why he needed a longer hospital stay. Also left before new medications could be prescribed for home. Total Time Spent: Less than 30 minutes This includes examination of the patient, discharge planning, medication reconciliation, and communication with other providers. Discharge Instructions Please refer to the electronic Patient Visit Report (Discharge Instructions) for additional information.
== END 2017-04-03 15:50 | disposition left against medical advice (07) | DRG 304 ==
LOC: C.EDB 16:13 → C.MSICU 19:03 → ENRESERV 19:52 → EDBEDREQSVC 04-02 17:29 → ENRESERV 04-02 18:08 → C.2T 04-02 18:51
PROVIDERS: ADMIT Internal Medicine; ATTEND Family Medicine
DX: I16.1 Hypertensive emergency (principal); I25.10 Atherosclerotic heart disease of native coronary artery without angina pectoris; N18.6 End stage renal disease; Z94.0 Kidney transplant status; I12.0 Hypertensive chronic kidney disease with stage 5 chronic kidney disease or end stage renal disease; N17.9 Acute kidney failure, unspecified; I25.2 Old myocardial infarction; E10.21 Type 1 diabetes mellitus with diabetic nephropathy; Z79.4 Long term (current) use of insulin; Z95.5 Presence of coronary angioplasty implant and graft; E10.65 Type 1 diabetes mellitus with hyperglycemia; Z96.41 Presence of insulin pump (external) (internal); G47.33 Obstructive sleep apnea (adult) (pediatric); E78.5 Hyperlipidemia, unspecified; Z79.899 Other long term (current) drug therapy; Z83.3 Family history of diabetes mellitus; I50.9 Heart failure, unspecified; M1A.9XX0 Chronic gout, unspecified, without tophus (tophi); I34.0 Nonrheumatic mitral (valve) insufficiency; E10.319 Type 1 diabetes mellitus with unspecified diabetic retinopathy without macular edema; F32.9 Major depressive disorder, single episode, unspecified; Z79.82 Long term (current) use of aspirin; Z88.8 Allergy status to other drugs, medicaments and biological substances

== ENCOUNTER → 2017-04-14 | Outpatient (CLI) | payer OTHER ==
[~2017-04-14] MED LIST changes: -OMEP20CA9 PO
[2017-04-14 17:17] LABS: ALBUMIN 3.6 gm/dl (3.4-5.0); BLOOD UREA NITROGEN 78 mg/dl (7-18); CALCIUM 9.2 mg/dl (8.5-10.1); CARBON DIOXIDE 25 mmol/L (21-32); CREATININE 3.17 mg/dl (0.60-1.40); GLUCOSE 176 mg/dl (70-99); POTASSIUM 4.6 mmol/L (3.5-5.1); SODIUM 136 mmol/L (136-145); URIC ACID 6.8 mg/dl (2.6-7.2)
[2017-04-14 17:18] LABS: PHOSPHORUS 3.6 mg/dl (2.5-4.9)
== END | disposition home or self-care (01) ==
LOC: C.LAB1850 15:09
PROVIDERS: ATTEND Internal Medicine Pulmonary Disease
DX: N18.9 Chronic kidney disease, unspecified (principal); R60.9 Edema, unspecified; I10 Essential (primary) hypertension

== ENCOUNTER → 2017-06-11 | Outpatient (CLI) | payer OTHER ==
[~2017-06-11] MED LIST changes: +AMOX500C3 PO; +DALB1SOL
--- NOTE | 2017-06-11 08:12 | DIAGNOSTIC IMAGING REPORT ---
MRI OF THE LEFT HINDFOOT WITHOUT IV CONTRAST CLINICAL HISTORY: Nonhealing heel ulcer. COMPARISON STUDY: No priors. TECHNIQUE: MRI of the left hindfoot is performed utilizing various T1 and T2-weighted sequences in the axial, sagittal, and coronal planes. IV contrast was not administered for this examination. Examination is degraded by motion artifact. Note that interpretation is suboptimal without plain film correlate. FINDINGS: There is mild marrow edema identified within the posterior calcaneus. There is cortical erosion seen along the posterior and posterolateral aspect of the base of the calcaneus, best seen on axial T1-weighted image #22 and coronal image #24. The appearance is concerning for osteomyelitis. No additional foci of similar-appearing marrow signal abnormality are identified. Mild marrow edema is seen within the body of the talus, likely on a degenerative basis. There is a 4 mm focus of signal abnormality identified within the medial talar dome on coronal T1 image #13. The overlying cartilage appears intact, and this is likely on a degenerative basis. Degenerative change and edema is also seen in the distal tibia. There is significant subcutaneous soft tissue edema identified around the hindfoot. The appearance suggests cellulitis. No organized fluid collection is seen to indicate abscess. A cutaneous defect along the posteromedial aspect of the heel is consistent with ulceration. The visualized plantar fascia appears intact. The imaged portions of the Achilles tendon are maintained. The anterior, posterior, and peroneal tendons are intact as visualized. There is nonspecific/generalized myositis of the regional musculature. IMPRESSION: 1. There are marrow changes and cortical erosion seen involving the posterior base of the calcaneus as above. The appearance is highly concerning for osteomyelitis. 2. No additional foci of similar-appearing marrow changes are seen throughout the visualized bony structures. 3. Findings are consistent with generalized cellulitis of the hindfoot and there is a cutaneous ulceration identified in the heel. No organized fluid collection is seen to suggest abscess. 4. Degenerative changes noted in the tibia and talus as above. Dictated: 06/11/2017 7:14 AM Transcribed: 06/11/2017 8:12 AM [place] Electronically signed by: Rob Kaur M.D. 06/11/2017 8:39 AM Dictated Date/Time: 06/11/2017 7:14 AM
== END | disposition home or self-care (01) ==
LOC: C.MRI 05:58
PROVIDERS: ATTEND Physician Assistant
DX: L97.421 Non-pressure chronic ulcer of left heel and midfoot limited to breakdown of skin (principal); M89.8X7 Other specified disorders of bone, ankle and foot

== ENCOUNTER → 2017-06-18 | Outpatient (CLI) | payer OTHER ==
[~2017-06-18] MED LIST changes: -DALB1SOL; +DALB1SOL IV
== END | disposition home or self-care (01) ==
LOC: C.RDSM 19:50
PROVIDERS: ATTEND Physical Medicine & Rehabilitation Sports Medicine
DX: L97.429 Non-pressure chronic ulcer of left heel and midfoot with unspecified severity (principal)

== ENCOUNTER → 2017-09-08 | Outpatient (CLI) | payer OTHER ==
[2017-09-08 12:24] LABS: BASO % 0.7 %; BASO ABS # 0.05 K/uL (0-0.2); EOS % 1.4 %; EOS ABS # 0.11 K/uL (0-0.5); HEMATOCRIT 35.4 % (42-52); HEMOGLOBIN 11.3 g/dL (14.0-18.0); IG# 0.02 K/uL (0.00-0.02); LYMPH % 26.6 %; LYMPH ABS # 2.03 K/uL (1.2-3.4); MEAN CELL VOLUME 85.7 fL (80-100); MEAN CORPUSCULAR HEMOGLOBIN 27.4 pg (25-34); MEAN CORPUSCULAR HGB CONC 31.9 g/dl (32-36); MEAN PLATELET VOLUME 11.8 fL (7.4-10.4); MONO % 8.5 %; MONO ABS # 0.65 K/uL (0.11-0.59); NEUT % 62.5 %; NEUT ABS # 4.77 K/uL (1.4-6.5); PLATELET COUNT 245 K/uL (130-400); RED CELL DISTRIBUTION WIDTH CV 16.2 % (11.5-14.5); RED CELL DISTRIBUTION WIDTH SD 51.4 fL (36.4-46.3); WHITE BLOOD COUNT 7.63 K/uL (4.8-10.8)
[2017-09-08 12:43] LABS: ALBUMIN 2.8 gm/dl (3.4-5.0); ALKALINE PHOSPHATASE 174 U/L (45-117); ALT/SGPT 43 U/L (12-78); AST/SGOT 47 U/L (15-37); BLOOD UREA NITROGEN 37 mg/dl (7-18); CALCIUM 8.4 mg/dl (8.5-10.1); CARBON DIOXIDE 24 mmol/L (21-32); CREATININE 1.96 mg/dl (0.60-1.40); GLUCOSE 129 mg/dl (70-99); POTASSIUM 4.1 mmol/L (3.5-5.1); SODIUM 138 mmol/L (136-145)
== END | disposition home or self-care (01) ==
LOC: C.LABSPEC 15:23
PROVIDERS: ATTEND Internal Medicine Infectious Disease
DX: M86.9 Osteomyelitis, unspecified (principal); Z79.2 Long term (current) use of antibiotics

== ENCOUNTER → 2017-09-15 | Outpatient (CLI) | payer OTHER ==
[2017-09-15 12:49] LABS: BASO % 0.3 %; BASO ABS # 0.02 K/uL (0-0.2); EOS % 1.1 %; EOS ABS # 0.09 K/uL (0-0.5); HEMATOCRIT 33.8 % (42-52); HEMOGLOBIN 10.8 g/dL (14.0-18.0); IG# 0.03 K/uL (0.00-0.02); LYMPH % 23.1 %; LYMPH ABS # 1.85 K/uL (1.2-3.4); MEAN CELL VOLUME 84.5 fL (80-100); MEAN PLATELET VOLUME 11.2 fL (7.4-10.4); MONO % 6.5 %; MONO ABS # 0.52 K/uL (0.11-0.59); NEUT % 68.6 %; NEUT ABS # 5.49 K/uL (1.4-6.5); PLATELET COUNT 216 K/uL (130-400); RED CELL DISTRIBUTION WIDTH SD 49.5 fL (36.4-46.3)
[2017-09-15 13:33] LABS: BLOOD UREA NITROGEN 37 mg/dl (7-18); CALCIUM 8.7 mg/dl (8.5-10.1); CARBON DIOXIDE 26 mmol/L (21-32); CREATININE 1.97 mg/dl (0.60-1.40); GLUCOSE 146 mg/dl (70-99); SODIUM 138 mmol/L (136-145)
== END | disposition home or self-care (01) ==
LOC: C.LABSPEC 10:27
PROVIDERS: ATTEND Internal Medicine Infectious Disease
DX: M86.9 Osteomyelitis, unspecified (principal)

== ENCOUNTER 2019-03-17 08:44 | Inpatient (IN) ==
--- NOTE | 2019-03-01 13:21 | PAT Medication Instructions ---
Medication Instructions Date of Service March 01, 2019 Home Medications Medication Instructions Recorded pregabalin 75 mg capsule 75 mg PO BID #60 cap 10/12/18 Dexcom G6 Program Engagement Director #1 ea NS 11/30/18 Dexcom G6 Sensor #9 ea NS 11/30/18 Dexcom G6 Transmitter #1 ea NS 11/30/18 sirolimus 2 mg tablet 4 mg PO HS #180 tab 12/16/18 blood sugar diagnostic #10 ea 12/22/18 blood sugar diagnostic #100 ea 12/22/18 hydromorphone 2 mg tablet 2 mg PO Q4H PRN #90 tab 02/05/19 3-in-1 Commode #1 ea 02/22/19 Wheeled Walker #1 ea 02/22/19 Wheeled Walker #1 ea 02/22/19 allopurinol 300 mg tablet 300 mg PO HS atorvastatin 80 mg tablet 80 mg PO HS clopidogrel 75 mg tablet 75 mg PO HS doxycycline hyclate 50 mg capsule 50 mg PO BID glucagon (human recombinant) 1 mg solution for injection 1 mg IM .COMPLEX PRN insulin aspart U-100 100 100 unit/mL subcutaneous solution 100 units SQ .COMPLEX metolazone 10 mg tablet 10 mg PO HS metoprolol succinate 50 mg tablet,extended release 24 hr 50 mg PO HS prednisone 5 mg tablet 5 mg PO HS quinapril 20 mg tablet 40 mg PO HS sertraline 50 mg tablet 50 mg PO HS tacrolimus 1 mg capsule 3 mg PO BID pregabalin 75 mg capsule 75 mg PO BID aspirin 81 mg PO HS sirolimus 2 mg tablet 4 mg PO HS hydromorphone 2 mg tablet 2 mg PO Q4H PRN furosemide 40 mg PO QAM omeprazole 20 mg PO PM ASK your prescriber and surgeon clopidogrel 75 mg tablet 75 mg PO HS -- MUST BE STOPPED FOR A MINIMUM OF 7 DAYS PRIOR TO SURGERY FOR SPINAL ANESTHESIA (PREFERRED METHOD) DO NOT take the morning of surgery furosemide 40 mg PO QAM Take morning of surgery With a small sip of water, OTHERWISE NOTHING TO EAT OR DRINK AFTER MIDNIGHT: doxycycline hyclate 50 mg capsule 50 mg PO BID glucagon (human recombinant) 1 mg solution for injection 1 mg IM .COMPLEX PRN (if needed) insulin aspart U-100 100 100 unit/mL subcutaneous solution 100 units SQ .COMPLEX -- CONTINUE AT BASAL RATE AND DO NOT BOLUS tacrolimus 1 mg capsule 3 mg PO BID pregabalin 75 mg capsule 75 mg PO BID hydromorphone 2 mg tablet 2 mg PO Q4H PRN (if needed, may be taken up to four hours before surgery) Take evening before surgery allopurinol 300 mg tablet 300 mg PO HS atorvastatin 80 mg tablet 80 mg PO HS doxycycline hyclate 50 mg capsule 50 mg PO BID glucagon (human recombinant) 1 mg solution for injection 1 mg IM .COMPLEX PRN (if needed) insulin aspart U-100 100 100 unit/mL subcutaneous solution 100 units SQ .COMPLEX metolazone 10 mg tablet 10 mg PO HS metoprolol succinate 50 mg tablet,extended release 24 hr 50 mg PO HS prednisone 5 mg tablet 5 mg PO HS quinapril 20 mg tablet 40 mg PO HS sertraline 50 mg tablet 50 mg PO HS tacrolimus 1 mg capsule 3 mg PO BID pregabalin 75 mg capsule 75 mg PO BID aspirin 81 mg PO HS sirolimus 2 mg tablet 4 mg PO HS hydromorphone 2 mg tablet 2 mg PO Q4H PRN omeprazole 20 mg PO PM Other Notes If you have any questions please call us at [phone] or [phone] or [phone] or [phone]
--- NOTE | 2019-03-02 08:42 | Anesthesiology Consultation ---
Date of Service March 02, 2019 Assessment & Plan (1) Encounter for pre-operative examination: Cardiology clearance 12/18/2018: "Based on patient's functional status without limiting cardiopulmonary symptoms, normal LV systolic function, and his negative dobutamine stress echocardiogram 12/17/2018 -- patient is an acceptable surgical risk to proceed with surgery as scheduled. Patient was advised to take his usual dose of Metoprolol Succinate ER the morning of surgery with sips of water. Hold Quinapril the morning of surgery. There is no need for further cardiac workup at this time. PCP 02/02/2019: "I think it is impractical to think that a type 1 diabetic with the associated medical conditions that he has is going to have a hemoglobin A1c of 6.0. I think that his level of glycemic control at the current time is not unreasonable for surgery. Obviously, during the surgical procedure and leading up to the surgical procedure his blood sugar can be very well controlled." Note sent to PCP re: anemia. Per his response, "No further workup indicated. Has been cleared by cardiology. I have discussed medical issues with Dr. Lima. Ina ld prefer sinal anesthesia with light sedation." CHECK BSG AM DOS Chart Review Chart Review: Acceptable Risk for Surgery and Patient seen in Pre Admission Testing Teaching & Discussion Instructed NPO after midnight before surgery, except medications with 15 cc of water. Medication instructions provided according to the PAT guidelines. History Surgery Operation Date: 03/17/19 11:30 Proposed Procedures p Right Total Hip Arthroplasty - Bill Lima MD Height/Weight Height: 5 ft 5 in Weight: 70.5 kg Allergies Allergy/AdvReac Type Severity Reaction Status Date / Time PORK INSULIN Allergy Unknown Hives Uncoded 02/26/19 15:47 Medications Home Medications Medication Instructions Recorded Confirmed Last Taken acetone (urine) test #25 ea 10/05/18 02/22/19 Unknown allopurinol 300 mg tablet 300 mg PO HS 10/05/18 02/26/19 11/22/18 atorvastatin 80 mg tablet 80 mg PO HS tab 10/05/18 02/26/19 11/22/18 clopidogrel 75 mg tablet 75 mg PO HS 10/05/18 02/26/19 11/22/18 doxycycline hyclate 50 mg capsule 50 mg PO BID #60 cap 10/05/18 02/26/19 11/22/18 glucagon (human recombinant) 1 mg 1 mg IM .COMPLEX PRN 10/05/18 02/26/19 Unknown solution for injection insulin aspart U-100 100 unit/mL 100 units SQ .COMPLEX ml 10/05/18 02/26/19 Unknown subcutaneous solution insulin syringe-needle U-100 0.5 #10 ea 10/05/18 02/22/19 Unknown mL 31 gauge x 5/16" lancets 33 gauge #100 ea 10/05/18 02/22/19 Unknown metolazone 10 mg tablet 10 mg PO HS 10/05/18 02/26/19 11/22/18 metoprolol succinate 50 mg 50 mg PO HS #90 tab 10/05/18 02/26/19 11/22/18 tablet,extended release 24 hr prednisone 5 mg tablet 5 mg PO HS 10/05/18 02/26/19 11/22/18 quinapril 20 mg tablet 40 mg PO HS tab 10/05/18 02/26/19 11/22/18 sertraline 50 mg tablet 50 mg PO HS 10/05/18 02/26/19 11/22/18 tacrolimus 1 mg capsule 3 mg PO BID cap 10/05/18 02/26/19 11/22/18 pregabalin 75 mg capsule 75 mg PO BID #60 cap 10/12/18 02/26/19 11/22/18 aspirin 81 mg PO HS 11/23/18 02/26/19 11/22/18 Dexcom G6 Staff Mechanical Engineer #1 ea NS 11/30/18 02/22/19 Unknown Dexcom G6 Sensor #9 ea NS 11/30/18 02/22/19 Unknown Dexcom G6 Transmitter #1 ea NS 11/30/18 02/22/19 Unknown sirolimus 2 mg tablet 4 mg PO HS #180 tab 12/16/18 02/26/19 Unknown blood sugar diagnostic #10 ea 12/22/18 02/22/19 Unknown blood sugar diagnostic #100 ea 12/22/18 02/22/19 Unknown hydromorphone 2 mg tablet 2 mg PO Q4H PRN #90 tab 02/05/19 02/26/19 Unknown 3-in-1 Commode #1 ea 02/22/19 02/22/19 Unknown Wheeled Walker #1 ea 02/22/19 02/22/19 Unknown Wheeled Walker #1 ea 02/22/19 02/22/19 Unknown furosemide 40 mg PO QAM 02/26/19 02/26/19 Unknown omeprazole 20 mg PO PM 02/26/19 02/26/19 Unknown Past Medical History Medical History Anxiety (Chronic) CAD (coronary artery disease) Chronic renal insufficiency (Chronic) Deep vein thrombosis ARM (10 YEARS AGO) AT [facility] Depression (Chronic) Diabetes mellitus type 1 INSULIN PUMP Fistula LEFT ARM (NON FUNCTIONING) GERD (gastroesophageal reflux disease) Gout Hyperlipidemia Hypertension Mitral regurgitation MILD-MOD Myocardial Infarction 2016 Peripheral neuropathy Sensory problems with limbs (Chronic) Sleep apnea CPAP Exercise / Class Metabolic Activity II 4-5 Yardwork/Stairs/Walk up hill (Does stairs daily, using cane, denies CP or SOB with 1 FOS) Past Family History Family History Grandfather Family history of diabetes mellitus Past Surgical History Surgical History H/O eye surgery LEFT/RT LASER SURGERY History of below knee amputation LEFT REVISION (5 TOTAL) History of cardiac cath 2016 - [place] - [facility] - 2 STENTS - FOLLOWS W/ DR. JURADO History of heart artery stent 2016 (2 STENTS PLACED) AT [facility] Kidney transplant recipient 2001 Past Anesthesia History No Hx of Anesthesia Complications and No Family Hx of Anesthesia Complications History of PONV No Hx of PONV and No Hx of Motion Sickness Social History Smoking Status: Never smoker tobacco type: smokeless tobacco Do You Dip or Chew Tobacco: Yes (1 can/wk; advised NPO after midnight) Hx Alcohol Use: Yes Alcohol type: beer alcohol intake frequency: a few times a week Hx Substance Use: No substance use type: does not use Review of Systems Pt denies any recent chest pain, shortness of breath, palpitations, cough, fever or URI. Physical Exam Vital Signs BP: 162/82 P: 83bpm SPO2: 97% RA T: 98.0 F R: 16 ENMT Mouth: + dental restorations (2-3 crowns on molars); no chipped teeth and no loose teeth Thyromental Distance: < 3.5 Finger Breadths (3) Mallampati Class: III Neck + short neck; neck extension not limited Respiratory normal respiratory effort Auscultation: lungs clear to auscultation bilaterally Cardiovascular Rate/Rhythm: regular rate and regular rhythm Heart Sounds: + murmur (II/ systolic) Vessels: no carotid bruit Extremities: no edema Musculoskeletal Extremities: + amputation noted (LLE, wears prosthesis) Testing Laboratory Results 03/02/19 08:28 03/02/19 08:28 PT 10.6 Seconds (9.0-12.0) 03/02/19 08:28 INR 1.0 (0.9-1.1) 03/02/19 08:28 APTT 25.4 Seconds (21.0-31.0) 03/02/19 08:28 Hemoglobin A1c 7.5 % (4.5-5.6) H 03/02/19 08:28 Blood Type O Negative 03/02/19 08:28 Antibody Screen NEGATIVE 03/02/19 08:28 *Surgeon's office flagged re: anemia. Note sent to PCP re: anemia and CHERI/CKD. Electrocardiogram Date: 11/27/18 Findings: + NSR @ (82bpm) Anteroseptal infarct (cited on or before 04/03/17). Compared with EKG of 04/03/2017, questionable change in QRS axis, T wave inversion now evident in inferior leads. *pt had subsequent negative DSE 12/18/18 Chest X-Ray IMPRESSION: 1. No acute cardiopulmonary abnormality. 2. Acute versus subacute displaced fracture of the posterior left fourth rib. Correlate with point tenderness and patient history. 3. No pneumothorax. Pt was asked about rib fx at [facility] on 03/02. He denies any pain or tenderness of the ribcage. He does recall a slip and fall several months ago but denies experiencing any pain in his thorax with this fall. Echocardiogram Date: 04/02/17 -- Normal LV size and systolic function. -- LVEF 55% to 60% with moderate hypokinesis of the mid to apical anterior and lateral dominguez. -- Mild concentric LVH. -- RV not well visualized, but appears to function normally. -- Mild to moderate mitral regurgitation. -- Aortic valve sclerosis without stenosis. -- Normal estimated RA and PA pressures. Stress Test Date: 12/18/18 Type: DSE Resting EF: 50-55% Negative dobutamine stress echocardiogram for myocardial ischemia at 86% of the maximum predicted heart rate. No dobutamine induced chest pain. Borderline EKG response. Baseline echocardiogram notes normal left ventricular systolic function with a distal anterolateral wall motion abnormality. Cardiac Catheterization Date: 03/25/15 - LMCA -- Angiographically normal. -- LAD -- Diffuse 10% to 20% proximal disease, sequential 30%, 50%, 50%, 50% midvessel stenosis, 0% to 10% distal stenosis. -- D1 -- 100% Proximal stenosis, 0% to 10%.distal disease. -- LCx -- No significant disease. -- OM1 -- Sequential 70% and 50% proximal stenoses. -- L GLENNA -- Normal. -- RCA -- 30% Proximal stenosis, 50% mid vessel stenosis, and 0% to 10% diffuse disease in distal vessel. -- R PDA -- 20% - 30% Diffuse mid vessel disease. -- AM -- 0%-10% Proximal stenosis. PCI 03/25/2015: -- Resolute 2.25 x 22 mm drug-eluting stent deployed in the 1st Diagonal.
[2019-03-02 10:27] LABS: Basophils # (auto) 0.01 K/uL (0-0.2); Basophils % (auto) 0.2 %; Eosinophils # (auto) 0.15 K/uL (0-0.5); Eosinophils % (auto) 2.4 %; Hematocrit (blood only) 31.1 % (42-52); Hemoglobin 9.6 g/dL (14.0-18.0); Immature Granulocytes # (auto) 0.02 K/uL (0.00-0.02); Immature Granulocytes % (auto) 0.3 %; Lymphocytes # (auto) 1.43 K/uL (1.2-3.4); Lymphocytes % (auto) 22.9 %; Mean Corpuscular Hgb Conc 30.9 g/dL (32-36); Mean Corpuscular Volume 84.3 fL (80-100); Mean Platelet Volume 11.9 fL (7.4-10.4); Monocytes # (auto) 0.37 K/uL (0.11-0.59); Monocytes % (auto) 5.9 %; Neutrophils # (auto) 4.27 K/uL (1.4-6.5); Neutrophils % (auto) 68.3 %; Platelet Count 221 K/uL (130-400); RDW Coefficient of Variation 16.8 % (11.5-14.5); RDW Standard Deviation 51.4 fL (36.4-46.3); Red Blood Count 3.69 M/uL (4.7-6.1); White Blood Count 6.25 K/uL (4.8-10.8)
[2019-03-02 10:42] LABS: Partial Thromboplastin Ratio 0.9; Partial Thromboplastin Time 25.4 Seconds (21.0-31.0); Prothrombin Time 10.6 Seconds (9.0-12.0)
[2019-03-02 10:52] LABS: BUN Creatinine Ratio 18.9 (10-20); Calcium 9.1 mg/dl (8.5-10.1); Creatinine Clr Calc Pharmacy 22.5 ml/min; Est GFR (African American) 21.9; Est GFR (Non-African American) 18.9; Potassium 4.8 mmol/L (3.5-5.1)
[2019-03-02 10:53] LABS: C Reactive Protein 0.57 mg/dl (0-0.29)
[2019-03-02 11:33] LABS: Estimated Average Glucose 169 mg/dl; Hemoglobin A1C 7.5 % (4.5-5.6)
[~2019-03-17 08:44] MED LIST changes: +ACETAMINOPHEN 500 MG TAB PO SCH; -AMOX500C3 PO; -ASPI81TA28 PO; -ATOR-24 PO; +BUPIVACAINE 0.5 % 5 MG/1 ML PF 10ML VIAL ONE; +CEFAZOLIN 2000MG 2,000 MG/15 ML SYR IV SCH; -CLOP1TAB15 PO; -DALB1SOL IV; +DC INTRASPINAL MORPHINE ONE; -DOXY50CA PO; +FAMOTIDINE 20 MG TAB PO SCH; +GABAPENTIN 900 MG DOSE PO SCH; -INSDGI; -INSPMPHMLG; +LR 15ML/HR IV SCH; +METOCLOPRAMIDE HCL 10 MG TABLET PO SCH; +MIDAZOLAM HCL 1 MG/ML 2ML VIAL ONE; -MULT-506 PO; -PRED-301 PO; -PREG75CA PO; -QUIN1TAB61 PO; +SCOPOLAMINE 1.5 MG TDSY TD SCH; -SIRO1TAB4 PO; +SODIUM CHLORIDE 0.9% 1000ML IV SCH; -TACR1CAP7 PO; +TRANEXAMIC ACID 1,000 MG **IV Pre-op IV SCH; -ZLF/100 PO; -ZRX5 PO; +[UNRECOGNIZED DRUG - REMARK] SCH
[2019-03-17] MEDS ORDERED: BUPIVACAINE 0.5 % 5 MG/1 ML MPF 30ML VIAL ONE (10:17)
[2019-03-17] MEDS ORDERED: EPINEPHrine INJ 1 MG/ML AMP ONE (10:17)
[2019-03-17] MEDS ORDERED: BACITRACIN INJ 50,000 UNIT VIAL ONE (10:17)
--- NOTE | 2019-03-17 10:54 | History & Physical Bridge Note ---
Date of Service March 17, 2019 History & Physical Bridge Note I have examined the patient, reviewed the History & Physical and in the interval since the performance of the History & Physical I have noted the following changes of clinical significance: no changes noted
[2019-03-17] MEDS ORDERED: METOCLOPRAMIDE HCL INJ 5 MG/ML 2 ML VIAL IV PRN ×2 (10:59→15:28)
[2019-03-17] MEDS ORDERED: ATROPINE SULFATE 0.1 MG/ML 10ML SYR IV PRN ×2 (10:59→11:36)
[2019-03-17] MEDS ORDERED: ONDANSETRON INJ 2 MG/ML 2 ML VIAL IV PRN ×2 (10:59→13:56)
[2019-03-17] MEDS ORDERED: PROMETHAZINE HCL 12.5 MG in SODIUM CHLORIDE 0.9% 50 ML IV PRN (10:59)
[2019-03-17] MEDS ORDERED: HYDROmorphone INJ 2 MG/ML SYR/VIAL IV PRN (10:59)
[2019-03-17] MEDS ORDERED: fentaNYL citrate 100 MCG/2 ML VIAL IV PRN (10:59)
[2019-03-17] MEDS ORDERED: ePHEDrine sulfate 50 MG/ML AMP IV PRN ×3 (10:59→13:56)
[2019-03-17] MEDS ORDERED: MoRPHine SULFATE PF 1 MG/ML 10 ML AMP/VIAL ONE (11:11)
[2019-03-17] MEDS ORDERED: LIDOCAINE HCL 2% 2 ML VIAL/AMP(20MG/ML) INFIL ONE (12:15)
[2019-03-17] MEDS ORDERED: PHENYLEPHRINE HCL 10 MG/ML VIAL ONE (12:15)
[2019-03-17] MEDS ORDERED: PROPOFOL IV EMULSION 10 MG/ML 20 ML VIAL IV ONE (12:15)
--- NOTE | 2019-03-17 13:05 | Post Operative Brief Note ---
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
--- NOTE | 2019-03-17 13:46 | XRay Report ---
SINGLE VIEW PELVIS; SINGLE VIEW RIGHT HIP CLINICAL HISTORY: Postoperative examination. FINDINGS: An AP portable view of the hips and pelvis with a crosstable lateral portable view of the r ight hip are obtained. A bipolar right hip arthroplasty is in near-anatomic alignment. 2 cortical lag screws transfix the acetabular cup. No acute fracture is identified. There are expected postoperativ e changes overlying the right hip including skin clips, subcutaneous gas, and soft tissue swelling. A Lobato catheter is in place. Surgical clips project over the scrotum. There is atherosclerotic calci fication of the femoral arteries. IMPRESSION: Expected postoperative findings status post right hip arthroplasty. No acute fracture is seen. ACT 112: Negative or not required by law. Electronically signed by: Rob Kaur M.D. 03/17/2019 1:45 PM
[2019-03-17] MEDS ORDERED: MEPERIDINE HCL 25 MG/ML CARP IV PRN (13:56)
[2019-03-17] MEDS ORDERED: DiphenhydrAMINE HCL 50 MG/ML VIAL IV PRN (13:56)
[2019-03-17] MEDS ORDERED: MoRPHine SULFATE 2 MG/ML CARP IV PRN (13:56)
[2019-03-17] MEDS ORDERED: METOCLOPRAMIDE HCL 20 MG in SODIUM CHLORIDE 0.9% 50 ML IV PRN (13:56)
[2019-03-17] MEDS ORDERED: KETOROLAC 30 MG/ML VIAL IV PRN (13:56)
[2019-03-17] MEDS ORDERED: NALBUPHINE HCL INJ 10 MG/ML AMP IV PRN (13:56)
[2019-03-17] MEDS ORDERED: MoRPHine SULFATE PF 1 MG/ML 10 ML AMP/VIAL INT SPINAL ONE (13:56)
[2019-03-17] MEDS ORDERED: NALOXONE HCL 1 MG in SODIUM CHLORIDE 0.9% 1000ML 1,000 ML IV PRN (13:56)
[2019-03-17] MEDS ORDERED: LACTATED RINGER'S 500 ML IV PRN (13:56)
[2019-03-17] MEDS ORDERED: NALOXONE HCL 0.4 MG/1 ML VIAL/CARP IV PRN ×2 (13:56→15:28)
[2019-03-17] MEDS ORDERED: PROMETHAZINE HCL 25 MG in SODIUM CHLORIDE 0.9% 50 ML IV PRN (13:56)
[2019-03-17] MEDS ORDERED: NALOXONE HCL 0.08 MG in SYRINGE 1.8 ML IV PRN (13:56)
[2019-03-17] MEDS ORDERED: HYDROmorphone INJ 0.5 MG/0.5 ML SYR IV PRN (13:56)
[2019-03-17] MEDS ORDERED: SODIUM CHLORIDE 0.9% 1000ML 1,000 ML IV SCH ×2 (14:00→15:28)
[2019-03-17] MEDS ORDERED: NO NARCOTICS OR SEDATIVES SCH (14:00)
[2019-03-17] MEDS ORDERED: CARBOHYDRATES FOR HYPOGLYCEMIA PO PRN (15:28)
[2019-03-17] MEDS ORDERED: BLOOD SUGAR DIAGNOSTIC SCH (15:28)
[2019-03-17] MEDS ORDERED: TAMSULOSIN HCL 0.4 MG CAP PO PRN (15:28)
[2019-03-17] MEDS ORDERED: GLUCOSE 10 TABS/TUBE PO PRN (15:28)
[2019-03-17] MEDS ORDERED: GLUCOSE 40% GEL 15 GM TUBE PO PRN (15:28)
[2019-03-17] MEDS ORDERED: DEXTROSE 50% 50 ML SYRINGE IV PRN (15:28)
[2019-03-17] MEDS ORDERED: GLUCAGON FOR INJ 1 MG VIAL SQ PRN (15:28)
[2019-03-17] MEDS ORDERED: BLOOD GLUCOSE TRANSMITTER SCH (15:28)
[2019-03-17] MEDS ORDERED: INSULIN ASPART PER UNIT SQ SCH (15:28)
[2019-03-17] MEDS ORDERED: bisacodyL 10 MG SUPP PR PRN (15:28)
[2019-03-17] MEDS ORDERED: [UNRECOGNIZED DRUG - OTHER] SCH (15:28)
[2019-03-17] MEDS ORDERED: BLOOD GLUCOSE METER CONTINUOUS SCH (15:28)
[2019-03-17] MEDS ORDERED: BLOOD GLUCOSE SENSOR SCH (15:28)
[2019-03-17] MEDS ORDERED: NO NSAIDS SCH (15:28)
[2019-03-17] MEDS ORDERED: MAGNESIUM HYDROXIDE SUSP 30 ML UDC PO PRN (15:28)
[2019-03-17] MEDS ORDERED: PHARMACY GLYCEMIC MGMT CONSULT PRN (16:05)
--- NOTE | 2019-03-17 16:06 | Anesthesiology Progress Note ---
Date of Service March 17, 2019 Anesthesia Post Procedure Vital Signs Vital Signs: Temp Pulse Pulse Pulse Resp BP Pulse Ox 03/17/19 15:53 36.3 C L 79 16 108/71 100 03/17/19 15:40 20 95 03/17/19 15:15 36.4 C L 79 16 106/73 96 03/17/19 14:45 36.6 C 75 16 104/69 99 03/17/19 14:15 82 18 113/68 99 03/17/19 14:05 36.8 C 79 13 113/75 99 03/17/19 13:55 78 12 117/71 99 03/17/19 13:45 81 12 116/76 94 03/17/19 13:35 80 12 132/77 98 03/17/19 13:25 81 12 121/80 99 03/17/19 13:15 79 12 128/83 98 03/17/19 13:07 36.9 C 83 15 131/86 100 03/17/19 09:15 36.9 C 88 18 168/102 H 99 Pain Intensity Right Hip: Pain Intensity: 5 Transfer of Care Handoff Completed per policy Notes Mental Status: alert / awake / arousable and participated in evaluation Patient Amnestic to Procedure: Yes Nausea / Vomiting: adequately controlled Pain: adequately controlled Airway Patency, RR, SpO2: stable & adequate BP & HR: stable & adequate Hydration State: stable & adequate Anesthetic Complications: no major complications apparent
[2019-03-17] MEDS: NovoLOG INSULIN PUMP SCH ×2 (16:08→21:38)
--- NOTE | 2019-03-17 16:14 | Pharmacy Report ---
Glycemic Control Consultation - Date of Service March 17, 2019 - Scope Scope: Glycemic Pharmacist consulted by Dr Lima on 03/17 for glycemic control and to write orders per [facility] inpatient glycemic control protocol - Objective Weight: 72.892 kg Accuchecks BSG (last 24hrs): 03/17/19 03/17/19 03/17/19 09:20 12:40 13:13 POC Glucose 130 H 84 89 03/17/19 03/17/19 03/17/19 13:55 14:13 14:38 POC Glucose 82 72 77 HbA1c: Hemoglobin A1c 7.5 % (4.5-5.6) H 03/02/19 08:28 - Recent Pertinent Medications Outpatient Anti-diabetic Regimen: * Novolog pump (settings obtained from recent outpatient visit) * Basal rates 0000 - 0.55 0800 - 0.65 * CF 55 for BSG > 150 * 4 units with B and L, 6 units with D * A1c = 7.5 % 03/02/19 The patient is currently receiving: * Insulin pump with basal rate only during surgery Risk Factors for Insulin Resistance: * Recent Surgery: POD 0 s/p MIGUEL * Diet: T1DM - Assessment & Plan Assessment & Plan: ASSESSMENT: * 43 y/o M admitted s/p MIGUEL. PMH pertinent for chronic renal insufficiency and T1DM, managed with an insulin pump. * Patient was running basal rate only while NPO in surgery. BSGs have fallen slightly due to NPO status but patient eating a sandwich when I walked into the room. * Insulin pump on and patient has already signed pump agreement. He wishes to continue while inpatient. * No steroids received in surgery so do not anticipate significant glycemic changes PLAN FOR INPATIENT GLYCEMIC CONTROL: * Pt is to manage BSGs with insulin pump per outpatient settings. * RN will have patient read and sign agreement CF 006 Insulin Pump Therapy Patient Agreement. * RN will provide and explain form [id number] Flowsheet for Patient * Patient will document their insulin dose given on NS-824 which is kept at the bedside, available to caregivers upon request, and which becomes part of the permanent medical record. If at any time the patients condition evidences that he/she is not able to manage the insulin pump (i.e. frequent hypo/hyperglycemia) Pharmacy will assume glycemic control by discontinuing the pump & managing with SQ basal bolus insulin regimen for the interim. * Please note that the plan above was derived based on current level of insulin resistance and hospital stress. These recommendations are appropriate for inpatient admission only. Plan of care upon discharge will need to be reassessed to avoid potential outpatient hypo/hyperglycemia. Thank you.
[2019-03-17] MEDS ORDERED: INSULIN ASPART 100 UNITS/ML VIAL SC PRN (16:15)
[2019-03-17] MEDS: CHECK SCOPOLAMINE PATCH PLACEMENT SCH (16:57)
[2019-03-17] MEDS: FERROUS GLUCONATE 324 MG TAB PO SCH (17:35)
[2019-03-17] MEDS: ASCORBIC ACID 500 MG TAB PO SCH (17:35)
--- NOTE | 2019-03-17 18:19 | Operative Report ---
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 He had a fairly large hip joint effusion. Not a lot of osteophyte formation or of the cartilage damage. He had diffuse osteopenia and very poor bone quality. Fluids 1000 cc Specimens Right femoral head sent for pathology. Drains None. Anesthesia Type Spinal MAC Complications none Disposition Accompanied Patient To Recovery: Yes Disposition: Recovery Room Indications Patient is a 43-year-old gentleman with multiple medical comorbidities including severe diabetes and status post a renal transplant with a compromised kidney function has had a 6-month history of progressive increased right hip pain. Is been on chronic steroids and developed avascular gross of the femoral head. Was very large segment he went on to collapse. He became debilitated by his pain sensitivity was having trouble getting around. He elected proceed with surgical treatment/hip arthroplasty. Description of Procedure Operative implants consisted of: 1. Biomet G7 size 48 mm acetabular shell. 2. 6.5 cancellus acetabular screws 1 of 35 mm length and 1 of 30 mm length. 3. Peterman hole eliminator. 4. 48 mm outer diameter and 32 mm inner diameter highly cross-linked polyethylene liner. 5. Caitlyn Corail size 11 KLA femoral stem. 6. +1/32 mm ceramic articular ball. Patient was taken to the operating room identified and placed on the operating table supine position protectors were appropriately padded. IV antibiotics were provided by anesthesia team. Spinal anesthetic had been implemented holding area. Lobato catheter was placed in sterile fashion the patient was placed in the left lateral decubitus position. An axillary roll was placed. Stulberg hip positioner was used for positioning. The right hip and leg were then prepped and draped in usual sterile fashion. A posterior lateral approach of the right hip was then performed through a curvilinear incision centered over the greater trochanter. Sharp dissection Through subcutaneous tissue down to the IT band gluteal fascia the IT band gluteal fascia was incised longitudinally in line with skin incision. The underlying greater trochanter bursa was excised. The piriformis and external rotators as well as the posterior capsule were then released as a single layer. There is quite a bit of fat back in this area it was difficulty identifying the structures without causing damage to the surrounding veins. Great care was taken throughout the procedure to protect the sciatic and ocular nerve at all times. Hip was internally rotated and dislocated. Femoral neck osteotomy cut was made with Final Cut about 5 mm above the lesser trochanter. Femoral head wa s removed and sent for pathology. The femur was retracted anteriorly. Attention drawn the acetabulum. The acetabular labrum was excised. Pulmonary fat was excised. Sequential reaming the acetabular was then performed again with size 43 and progressing up to 47. A 48 mm Biomet G7 acetabular shell was then placed in about 40 degrees lateral opening and 20 degrees of anteversion. I intubated the cup just a little bit more probably in order to maximize his stability I was concerned about his compliance. The acetabulum was then secured with two 6.5 cancellus acetabular screws. Trial liner was placed and attention then drawn the femur. The proximal femur was entered with a cookie-cutter followed by canal finder. Then broached begin the size 8 and progressing up to a 10. I did eventually broached up to 11 then had excellent fit. We then used a calcar reamer to smooth off the calcar. Then trialed the hip and the +1 articular ball. Full stability in full extension external rotation and flexion to 90 degrees internal rotation over 60 degrees. Leg lengths appeared appropriate. Soft tissue tension appeared appropriately. We elect to place these implants. If all trial implants were removed. An apex eliminator was placed but highly cross-link polyethylene liner was placed. A size 11 KLA femoral stem was then impacted into position. A +1/32 mm ceramic articular ball was placed and hip was once again located. It was found to be stable. Attention drawn toward closing. New breath wounds irrigated copious pulsatile lavage solution. I did inject locally with the 60 cc of 5% Marcaine with epinephrine. The posterior capsule and external rotators were then repaired through drill holes in the posterior trochanter with #2 Tycron suture. The IT was done in a single layer. The IT band gluteal fascia then closed with #1 PDS suture running fashion with subcutaneous tissue then closed with a combination of #1 Vicryl suture in the deep tissues and 2-0 Dexon suture in the more superficial tissues. Skin was then closed with skin ernst. Leg was then cleaned dried and sterile dressing composed of Xeroform, 4 x 4's, sterile ABD pad and foam tape was applied. Patie nt then transferred to the recovery room in stable condition. Patient tolerated procedure well no complications I attest to the content of the Intraoperative Record and any orders documented therein. Any exceptions are noted below.
--- NOTE | 2019-03-17 18:38 | Hospitalist Consultation ---
Date of Consultation March 17, 2019 Assessment & Plan (1) Diabetes: Constantine Dalton is a 43 year old man with a past medical history significant for CAD s/p STEMI, DMI status post renal transplant and BKA on immunosuppressive therapy who we have been consulted for for general medical management. Coronary Artery Disease History of [place] with stent placement in [address] Hadley at [facility]. He is currently on his home MONA-I, Metoprolol, high intensity statin, and daily asa 81 Clopidogrel was held for procedure, will resume tomorrow. Patient asymptomatic currently, will continue to monitor Chronic Renal Disease S/P Kidney Transplant Patient with history of diabetic nephropathy and kidney replacement in 2002 He has baseline creatinine 3-4 over the past year, most recently on new years of 3.69 No major blood loss during surgery estimated at 300 mls Will check PRP in am to evaluate for renal function changed NSS to lactated ringers 100mls/hour for maintenance Continuing tacrolimus, sirolimus and prednisone DMI Has been under tighter control since starting continuous glucose monitor and insulin pump last A1c 7. Pharmacy consulted for glycemic management Patient will continue to use his home insulin pump Sugars have been well controlled so far post op DVT Prophylaxis Patient on ASA 81 will restart clopidogrel as well tomorrow morning for DVT prophylaxis per Ortho pre operative note Full code F/E/N: Lactated ringers 100 mls/ hour DVT PPx: ASA and clopidogrel (2) HTN (hypertension): (3) Hyperglycemia: (4) End-stage renal failure with renal transplant: (5) S/P BKA (below knee amputation) unilateral: (6) Moderate obstructive sleep apnea: Supervising Physician Co-Signing Physician Notes I personally saw and examined the patient. I verified all landin points and agree with Resident Alexis Walsh MD with the following exceptions and/or additions: POD #0 right THR. Called by RN on chan as patient having right lateral anterior light pain. O/E A&P S/P right THR - DVT prophylaxis as per ortho with ASA + plavix. NSS switched to LR to avoid hyperchloremia. Likely can be discontinued tomorrow morning. T1DM - patient providing very good control of this glucose with insulin pump. Will continue to allow him to use this. Chronic steroid use - he has been on prednisone 5mg for many years therefore do not feel he needs stress dose steroids currently and BP is maintaining but if his blood pressure was to drop during the night adrenal insufficiency would be on the differential CKD IV with renal transplant - BMP ordered for AM. Baseline Cr prior to operation 3-4, although this is a relatively recent increase from 2.5-3. As per Dr Samson's note his urea is out of proportion of his creatinine suggesting his renal function is better than what it seems. Continuing to produce good amounts of urine as per patient. Continue sirolimus and tacrolimus, no need for levels unless patient becomes acutely unwell. Continue usual dose of lasix/metolazone/quinapril as long as BP stable. CAD - ASA, plavix, atorvastatin, metoprolol succinate and quinapril. recent dobutamine stress echo for cardiac clearance was negative for inducible myocardial ischemia. DIANE - may use own CPAP Muscles spasm - advised RN to call orthopedics for assessment, no concern for DVT given location in anterior light and only just had his operation, doubtful compartment syndrome given no trauma and operation to hip rather than lower leg. Patient feels like his muscle spasm. Any muscle relaxants History of Present Illness Reason for Consultation: Complicated baseline medical issues Requesting Physician: Bill Lima MD Attending Physician: Bill Lima MD History of Present Illness Constantine Dalton is a 43 year old man on day zero post op for a right sided hip replacement we have been consulted on for medical management. He has a medical history significant for a previously poorly controlled type I diabetes. He had progressive diabetic nephropathy resulting in a kidney transplant in 2002, he had a heart attack three years ago with stent placed by Dr. Hadley here at [facility], he also had bilateral neuropathy and lack of sensation in his feet resulting unfortunately in a hidden foot wound that resulted in osteomyelitis and a BKA on the left side, he is currently mobile with a prosthetic. He is on chronic immunosuppression for his kidney transplant on tacrolimus, sirolimus and daily prednisone 5 mg qhs. His chronic steroid use likely was the source of his hip avascular necrosis, he has been having extreme pain and difficulty getting around for the past year he tells me. His diabetes is under the best control of his life, because he was told by every orthopedic surgeon he would need to get tighter control over his blood sugar in order to receive a transplant. His last A1C was down to 7.5 and he has been monitoring his blood sugar with a continous glucose monitor and pump. He has no concerns acutely and aside from an ache on his right side from the surgery feels in his usual state of health. Allergies Allergy/AdvReac Type Severity Reaction Status Date / Time PORK INSULIN Allergy Unknown Hives Uncoded 03/17/19 09:00 Home Medications Home Medications Medication Instructions Recorded Confirmed Type acetone (urine) test #25 ea 10/05/18 02/22/19 History glucagon (human recombinant) 1 mg 1 mg IM .COMPLEX PRN 10/05/18 03/17/19 History solution for injection insulin aspart U-100 100 unit/mL 100 units SQ .COMPLEX ml 10/05/18 03/17/19 History subcutaneous solution insulin syringe-needle U-100 0.5 #10 ea 10/05/18 02/22/19 History mL 31 gauge x 5/16" lancets 33 gauge #100 ea 10/05/18 02/22/19 History metoprolol succinate 50 mg 50 mg PO HS #90 tab 10/05/18 03/17/19 History tablet,extended release 24 hr tacrolimus 1 mg capsule 3 mg PO BID cap 10/05/18 03/17/19 History pregabalin 75 mg capsule 75 mg PO BID #60 cap 10/12/18 03/17/19 Rx aspirin 81 mg PO HS 11/23/18 03/17/19 History Dexcom G6 Pediatric Intensive Physician #1 ea NS 11/30/18 02/22/19 Rx Dexcom G6 Sensor #9 ea NS 11/30/18 02/22/19 Rx Dexcom G6 Transmitter #1 ea NS 11/30/18 02/22/19 Rx sirolimus 2 mg tablet 4 mg PO HS #180 tab 12/16/18 03/17/19 Rx blood sugar diagnostic #10 ea 12/22/18 02/22/19 Rx blood sugar diagnostic #100 ea 12/22/18 02/22/19 Rx 3-in-1 Commode #1 ea 02/22/19 02/22/19 Rx Wheeled Walker #1 ea 02/22/19 02/22/19 Rx Wheeled Walker #1 ea 02/22/19 02/22/19 Rx furosemide 40 mg PO QAM 02/26/19 03/17/19 History omeprazole 20 mg PO PM 02/26/19 03/17/19 History hydromorphone 2 mg tablet 2 mg PO Q4H PRN #90 tab 03/15/19 03/17/19 Rx allopurinol 300 mg tablet 300 mg PO HS #90 tab 03/16/19 03/17/19 Rx atorvastatin 80 mg tablet 80 mg PO HS #90 tab 03/16/19 03/17/19 Rx clopidogrel 75 mg tablet 75 mg PO HS #90 tab 03/16/19 03/17/19 Rx doxycycline hyclate 50 mg capsule 50 mg PO BID #180 cap 03/16/19 03/17/19 Rx metolazone 10 mg tablet 10 mg PO HS #90 tab 03/16/19 03/17/19 Rx prednisone 5 mg tablet 5 mg PO HS #90 tab 03/16/19 03/17/19 Rx quinapril 20 mg tablet 40 mg PO HS #180 tab 03/16/19 03/17/19 Rx sertraline 50 mg tablet 50 mg PO HS #90 tab 03/16/19 03/17/19 Rx Patient History Medical History Anxiety (Chronic) CAD (coronary artery disease) Chronic renal insufficiency (Chronic) Deep vein thrombosis ARM (10 YEARS AGO) AT FISTULA SITE Depression (Chronic) Diabetes mellitus type 1 INSULIN PUMP Fistula LEFT ARM (NON FUNCTIONING) GERD (gastroesophageal reflux disease) Gout Hyperlipidemia Hypertension Mitral regurgitation MILD-MOD Myocardial Infarction 2016 Peripheral neuropathy Sensory problems with limbs (Chronic) Sleep apnea CPAP Surgical History H/O eye surgery LEFT/RT LASER SURGERY History of below knee amputation LEFT REVISION (5 TOTAL) History of cardiac cath 2016 - [place] - [facility] - 2 STENTS - FOLLOWS W/ DR. HADLEY History of heart artery stent 2016 (2 STENTS PLACED) AT [facility] Kidney transplant recipient 2001 Family History Grandfather Family history of diabetes mellitus Social History Preferred Language: Yoruba Communication Ability: Effective Manager Nuclear Required: No Beliefs That Will Affect Care: None Current Living Situation: Spouse Other Information That Helps Us Care for You: No Feels Safe at Home: Yes Safety Concerns: Feels Safe At This Time Smoking Status: Never smoker Tobacco Type: smokeless tobacco ; Do You Dip or Chew Tobacco: Yes (1 can/wk; advised NPO after midnight) ; Second Hand Exposure: No ; Tobacco Cessation Education Requested by Patient: No Hx Alcohol Use: Yes Alcohol type: beer Hx Substance Use: No Review of Systems Constitutional: no fever, no chills, no fatigue, no weakness and no weight gain Eyes: no problem reported Ear, Nose, Mouth, Throat: no problem reported Respiratory: no cough, no dyspnea, no pain on inspiration and no wheezing Cardiovascular: no chest pain, no dyspnea, no lightheadedness, no syncope and no edema Gastrointestinal: no abdominal pain, no nausea, no vomiting, no constipation, no diarrhea/loose stools and no blood in stools Genitourinary: no dysuria Integumentary: no problem reported Physical Exam Physical Exam: Constitutional: 43 year old man appearing stated age, with a generally sallow complexion resting comfortably in bed wearing patriots hat and watching television Eyes: Anicteric Sclerae, EOMMI bilaterally Respiratory: Chest expansion equal bilaterally, no increased work of breathing, breath sounds vesicular in all lung heaton Cardiovascular: Patient with grade 3 systolic murmur radiating to neck best heard at sternal border, regular rate regular rhythm GI: Abdomen soft, nontender, obese Skin: Dry clean no rashes Results & Data Vital Signs (Past 12 Hours) Vital Signs Temp Pulse Pulse Pulse Resp BP Pulse Ox 03/17/19 17:45 36.5 C 76 16 133/88 100 03/17/19 17:40 16 95 03/17/19 16:55 16 98 03/17/19 16:51 36.4 C L 75 16 128/86 100 03/17/19 15:53 36.3 C L 79 16 108/71 100 03/17/19 15:40 20 95 03/17/19 15:15 36.4 C L 79 16 106/73 96 03/17/19 14:45 36.6 C 75 16 104/69 99 03/17/19 14:15 82 18 113/68 99 03/17/19 14:05 36.8 C 79 13 113/75 99 03/17/19 13:55 78 12 117/71 99 03/17/19 13:45 81 12 116/76 94 03/17/19 13:35 80 12 132/77 98 03/17/19 13:25 81 12 121/80 99 03/17/19 13:15 79 12 128/83 98 03/17/19 13:07 36.9 C 83 15 131/86 100 03/17/19 09:15 36.9 C 88 18 168/102 H 99 Resident Activity Tracking Resident Involvement: Resident Care Provided Care Provided: Adult Hospital Medicine (1) Diabetes Diabetes mellitus type: type 1 Diabetes mellitus complication status: with kidney complications Diabetes mellitus complication detail: with chronic kidney disease Chronic kidney disease stage: stage 4 (severe) Qualified Code(s): E10.22 - Type 1 diabetes mellitus with diabetic chronic kidney disease; N18.4 - Chronic kidney disease, stage 4 (severe) (2) HTN (hypertension) Hypertension type: renovascular hypertension Qualified Code(s): I15.0 - Renovascular hypertension
[2019-03-17] MEDS: LACTATED RINGER'S 1,000 ML IV SCH (20:51)
[2019-03-17] MEDS: CEFAZOLIN 1000MG 1,000 MG/7.5 ML SYR IV SCH (20:51)
[2019-03-17] MEDS: ASPIRIN 81 MG ECTAB PO SCH (20:59)
[2019-03-17] MEDS: SIROLIMUS 0.5 MG TABLET PO SCH (20:59)
[2019-03-17] MEDS: predniSONE 5 MG TAB PO SCH (21:02)
[2019-03-17] MEDS: ENALAPRIL MALEATE 10 MG TAB PO SCH (21:02)
[2019-03-17] MEDS: SERTRALINE HCL 50 MG TABLET PO SCH (21:03)
[2019-03-17] MEDS: SENNA 8.6 MG TAB PO SCH (21:03)
[2019-03-17] MEDS: DOCUSATE SODIUM 100 MG CAP PO SCH (21:04)
[2019-03-17] MEDS: TACROLIMUS 1 MG CAP PO SCH (21:05)
[2019-03-17] MEDS: PREGABALIN 75 MG CAP PO SCH ×2 (21:06→21:38)
[2019-03-17] MEDS: ATORVASTATIN 40 MG TAB PO SCH (21:06)
[2019-03-17] MEDS: DOXYCYCLINE HYCLATE 50 MG CAP PO SCH (21:07)
[2019-03-17] MEDS: PANTOprazole 40 MG TAB PO SCH (21:07)
[2019-03-17] MEDS: METOPROLOL SUCC 50MG EXT REL TAB PO SCH (21:08)
[2019-03-17] MEDS: allopurinoL 300 MG TAB PO SCH (21:09)
[2019-03-17] MEDS: metOLazone 5 MG TABLET PO SCH (21:09)
[2019-03-18] MEDS: LACTATED RINGER'S 1,000 ML IV SCH (03:00)
[2019-03-18] MEDS: CEFAZOLIN 1000MG 1,000 MG/7.5 ML SYR IV SCH (03:01)
[2019-03-18 05:09] LABS: Basophils # (auto) 0.01 K/uL (0-0.2); Basophils % (auto) 0.1 %; Eosinophils # (auto) 0.11 K/uL (0-0.5); Eosinophils % (auto) 1.1 %; Hematocrit (blood only) 27.3 % (42-52); Hemoglobin 8.6 g/dL (14.0-18.0); Immature Granulocytes # (auto) 0.04 K/uL (0.00-0.02); Immature Granulocytes % (auto) 0.4 %; Lymphocytes # (auto) 1.32 K/uL (1.2-3.4); Lymphocytes % (auto) 12.6 %; Mean Corpuscular Hemoglobin 26.1 pg (25-34); Mean Corpuscular Hgb Conc 31.5 g/dL (32-36); Mean Platelet Volume 11.5 fL (7.4-10.4); Monocytes # (auto) 1.02 K/uL (0.11-0.59); Monocytes % (auto) 9.8 %; Neutrophils # (auto) 7.96 K/uL (1.4-6.5); Platelet Count 130 K/uL (130-400); RDW Coefficient of Variation 16.4 % (11.5-14.5); RDW Standard Deviation 50.4 fL (36.4-46.3); Red Blood Count 3.29 M/uL (4.7-6.1); White Blood Count 10.46 K/uL (4.8-10.8)
[2019-03-18 05:42] LABS: BUN Creatinine Ratio 20.3 (10-20); Creatinine Clr Calc Pharmacy 20.6 ml/min; Est GFR (African American) 19.8; Est GFR (Non-African American) 17.1; Potassium 4.5 mmol/L (3.5-5.1)
[2019-03-18] MEDS ORDERED: ONDANSETRON INJ 2 MG/ML 2 ML VIAL IV PRN (07:56)
--- NOTE | 2019-03-18 08:01 | Progress Note ---
DATE: 03/18/2019 SUBJECTIVE: A 43-year-old gentleman postop day 1 from right hip replacement. Having quite a bit more soreness this morning. No chest pain or shortness of breath. Not feeling dizzy or lightheaded. OBJECTIVE: VITAL SIGNS: Temperature 37.3. He is little bit tachycardic in the low 100s. GENERAL: Reveals a pleasant, middle-aged male. He is lying in bed, looks pretty comfortable while lying in bed. EXTREMITIES: Examination of the right hip reveals leg lengths to be equal. Dressing is clean, dry and intact. Thigh is soft and supple. He is neurologically intact. Hip is located. LABORATORY DATA: Hemoglobin 8.6. Hematocrit 27.3. Electrolytes are fairly stable. Creatinine is slightly elevated at 4.02. ASSESSMENT: A 43-year-old gentleman with history of kidney transplant with multiple medical comorbidities, postop day 1 from right hip replacement done for AVN and DJD. He is doing okay. Having a bit more soreness. He is a bit anemic, but relatively asymptomatic other than the tachycardia. Having a little bit more pain this morning and he has been on chronic pain meds which are going to make pain an issue and pain control an issue. PLAN: 1. DVT prophylaxis including thigh-high TEDs, SCDs. I am going to put him back on his aspirin as well as his Plavix. 2. PT/OT. He can weightbear as tolerated. Right total hip protocol. 3. Pain control, doing okay with current pain regimen. We may have to increase his meds as he gets more active. We will see how things go today. 4. Creatinine. We will continue to follow this. Encourage oral intake. 5. Disposition. Plan to discharge to home with some home health once adequately recovered and medically stable.
[2019-03-18] MEDS: HYDROmorphone HCL 2 MG TAB PO PRN ×4 (08:06→23:41)
[2019-03-18] MEDS: CHECK SCOPOLAMINE PATCH PLACEMENT SCH ×4 (08:09→22:58)
[2019-03-18] MEDS: NovoLOG INSULIN PUMP SCH ×4 (08:56→21:26)
[2019-03-18] MEDS: ASCORBIC ACID 500 MG TAB PO SCH ×2 (08:57→18:56)
[2019-03-18] MEDS: FERROUS GLUCONATE 324 MG TAB PO SCH ×2 (08:57→18:56)
[2019-03-18] MEDS: FUROSEMIDE 40 MG TAB PO SCH (08:58)
[2019-03-18] MEDS: DOCUSATE SODIUM 100 MG CAP PO SCH ×2 (08:58→21:26)
[2019-03-18] MEDS: MULTIVITAMIN TAB PO SCH (08:59)
[2019-03-18] MEDS: CLOPIDOGREL BISULFATE 75 MG TAB PO SCH (08:59)
[2019-03-18] MEDS: TACROLIMUS 1 MG CAP PO SCH ×2 (09:00→21:27)
[2019-03-18] MEDS: DOXYCYCLINE HYCLATE 50 MG CAP PO SCH ×2 (09:01→21:27)
[2019-03-18] MEDS: PREGABALIN 75 MG CAP PO SCH ×2 (09:04→21:26)
[2019-03-18] MEDS ORDERED: SODIUM CHLORIDE 0.9% 250 ML IV PRN (09:44)
[2019-03-18] MEDS ORDERED: MoRPHine SULFATE 2 MG/ML CARP IV STA (09:50)
--- NOTE | 2019-03-18 16:50 | Hospitalist Progress Note ---
Date of Service March 18, 2019 Assessment & Plan (1) Diabetes: Constantine Dalton is a 43 year old man with a past medical history significant for CAD s/p STEMI, DMI status post renal transplant and BKA on immunosuppressive therapy who underwent right total hip replacement on 03/17/2019. we have been consulted for for general medical management. Acute blood loss anemia Hb 8.7. Due to his CAD and recent [place], we will transfuse patient with hemoglobin of 8.6 one unit to prevent any further ischemia Coronary Artery Disease History of [place] with stent placement in [address] Hadley at [facility]. He is currently on his home MONA-I, Metoprolol, high intensity statin, and daily asa 81 Clopidogrel was held for procedure, resumed today. Patient asymptomatic currently, will continue to monitor Chronic Renal Disease S/P Kidney Transplant Patient with history of diabetic nephropathy and kidney replacement in 2002 He has baseline creatinine 3-4 over the past year, most recently on new years of 3.69 Today creatinine has risen to 4.02, BUN is markedly elevated Likely pre renal, patient appears volume down, received lactated ringers through this morning at 100 mls/hour and will receive transfusion this evening Will check PRP qam Continuing tacrolimus, sirolimus and prednisone Dr. Samson, primary care provider aware DMI Has been under tighter control since starting continuous glucose monitor and insulin pump last A1c 7. Pharmacy consulted for glycemic management Patient will continue to use his home insulin pump DVT Prophylaxis Patient on ASA 81 and clopidogrel 75 mg Pain Control Will defer this to primary team, do not want to overmedicate him as he is becoming delirious May consider AIRPLANE FUELER pump Avoiding NSAID's in setting of patient's renal dysfunction. Full code F/E/N: DM I diet DVT PPx: ASA and clopidogrel (2) HTN (hypertension): (3) Hyperglycemia: (4) AMI anterolateral wall: (5) Abnormal kidney function: (6) Chest pain: (7) End-stage renal failure with renal transplant: (8) S/P BKA (below knee amputation) unilateral: (9) Moderate obstructive sleep apnea: Supervising Physician Co-Signing Physician Notes Resident Physician Supervision Note: I independently interviewed and examined the patient and verified the landin history and physical, reviewed labs and image studies, discussed the case with the resident Dr. Walsh and agree with the findings and care plan. Subjective Mr Walker is suffering from a large amount of post operative pain this morning. He is denying any chest pain, shortness of breath, abdominal pain, nausea, vomiting, fevers, Chills sweats, he also denies any of his previous hip pain just pain from operation. He was given 2 mg of dialudid PO and I gave an additional 1 mg IV morphine which has been only moderately effective at treating his pain. He is also very disoriented and while he is oriented ot person place time and place he is having some hallucinations per nursing and he forgets that his is present in the room and is startled when she speaks. Review of Systems Review of Systems: All systems reviewed & are unremarkable except as noted in HPI & below Physical Exam Physical Exam: Constitutional: 43 year old man appearing stated age, with a generally sallow complexion writhing to and fro in bed in moderate discomfort Eyes: Anicteric Sclerae, EOMMI bilaterally Respiratory: Chest expansion equal bilaterally, no increased work of breathing, breath sounds vesicular in all lung heaton Cardiovascular: Patient with grade 3 systolic murmur radiating to neck best heard at sternal border, regular rate regular rhythm GI: Abdomen soft, nontender, obese Skin: Dry clean no lesions Results & Data Vital Signs (Past 12 Hours) Vital Signs Temp Pulse Resp BP Pulse Ox 03/18/19 15:51 36.9 C 119 H 20 159/88 H 93 03/18/19 12:22 36.8 C 115 H 20 162/91 H 99 03/18/19 07:04 37.3 C 116 H 20 154/82 H 97 03/18/19 05:45 20 96 Resident Activity Tracking Resident Involvement: Resident Care Provided Care Provided: Adult Hospital Medicine (1) Diabetes Chronic kidney disease stage: stage 4 (severe) Diabetes mellitus complication detail: with chronic kidney disease Diabetes mellitus complication status: with kidney complications Diabetes mellitus type: type 1 Qualified Code(s): E10.22 - Type 1 diabetes mellitus with diabetic chronic kidney disease; N18.4 - Chronic kidney disease, stage 4 (severe) (2) HTN (hypertension) Hypertension type: renovascular hypertension Qualified Code(s): I15.0 - Renovascular hypertension
[2019-03-18] MEDS: HYDROmorphone INJ 1 MG/ML SYRINGE IV PRN (18:57)
[2019-03-18] MEDS ORDERED: LIDOCAINE 2% JELLY 5 ML TUBE EXT SCH (19:15)
[2019-03-18] MEDS ORDERED: LIDOCAINE 2% JELLY 5 ML TUBE ONE (19:22)
[2019-03-18] MEDS: metOLazone 5 MG TABLET PO SCH (21:27)
[2019-03-18] MEDS: ATORVASTATIN 40 MG TAB PO SCH (21:27)
[2019-03-18] MEDS: PANTOprazole 40 MG TAB PO SCH (21:27)
[2019-03-18] MEDS: predniSONE 5 MG TAB PO SCH (21:27)
[2019-03-18] MEDS: SENNA 8.6 MG TAB PO SCH (21:27)
[2019-03-18] MEDS: METOPROLOL SUCC 50MG EXT REL TAB PO SCH (21:27)
[2019-03-18] MEDS: SIROLIMUS 0.5 MG TABLET PO SCH (21:27)
[2019-03-18] MEDS: allopurinoL 300 MG TAB PO SCH (21:27)
[2019-03-18] MEDS: ASPIRIN 81 MG ECTAB PO SCH (21:27)
[2019-03-18] MEDS: ENALAPRIL MALEATE 10 MG TAB PO SCH (21:27)
[2019-03-18] MEDS: SERTRALINE HCL 50 MG TABLET PO SCH (21:27)
[2019-03-19] MEDS: HYDROmorphone INJ 1 MG/ML SYRINGE IV PRN ×3 (00:48→16:49)
[2019-03-19] MEDS: HYDROmorphone HCL 2 MG TAB PO PRN ×3 (06:25→19:54)
[2019-03-19 06:37] LABS: Hematocrit (blood only) 29.1 % (42-52); Hemoglobin 9.3 g/dL (14.0-18.0); Mean Corpuscular Hemoglobin 26.6 pg (25-34); Mean Corpuscular Volume 83.1 fL (80-100); Mean Platelet Volume 11.8 fL (7.4-10.4); Platelet Count 114 K/uL (130-400); RDW Standard Deviation 49.3 fL (36.4-46.3); White Blood Count 12.57 K/uL (4.8-10.8)
[2019-03-19 06:43] LABS: Calcium 8.5 mg/dl (8.5-10.1); Creatinine Clr Calc Pharmacy 19.7 ml/min; Est GFR (African American) 18.8; Est GFR (Non-African American) 16.2; Potassium 4.5 mmol/L (3.5-5.1)
[2019-03-19 06:46] LABS: Basophils # (auto) 0.01 K/uL (0-0.2); Basophils % (auto) 0.1 %; Echinocytes 1+; Eosinophils # (auto) 0.17 K/uL (0-0.5); Eosinophils % (auto) 1.4 %; Immature Granulocytes # (auto) 0.04 K/uL (0.00-0.02); Immature Granulocytes % (auto) 0.3 %; Lymphocytes % (auto) 11.1 %; Monocytes # (auto) 1.03 K/uL (0.11-0.59); Monocytes % (auto) 8.2 %; Neutrophils # (auto) 9.92 K/uL (1.4-6.5); Neutrophils % (auto) 78.9 %; Platelet Estimate Normal (Normal)
[2019-03-19] MEDS: DOXYCYCLINE HYCLATE 50 MG CAP PO SCH ×2 (08:55→22:17)
[2019-03-19] MEDS: FUROSEMIDE 40 MG TAB PO SCH (08:55)
[2019-03-19] MEDS: FERROUS GLUCONATE 324 MG TAB PO SCH ×2 (08:55→16:48)
[2019-03-19] MEDS: DOCUSATE SODIUM 100 MG CAP PO SCH ×2 (08:55→22:19)
[2019-03-19] MEDS: MULTIVITAMIN TAB PO SCH (08:55)
[2019-03-19] MEDS: TACROLIMUS 1 MG CAP PO SCH ×2 (08:55→22:18)
[2019-03-19] MEDS: CLOPIDOGREL BISULFATE 75 MG TAB PO SCH (08:55)
[2019-03-19] MEDS: ASCORBIC ACID 500 MG TAB PO SCH ×2 (08:56→16:49)
[2019-03-19] MEDS: PREGABALIN 75 MG CAP PO SCH ×2 (08:57→22:20)
[2019-03-19] MEDS ORDERED: INSULIN GLARGINE SOLOSTAR 100 UNITS/ML 3 ML PEN SC ONE ×2 (09:30→12:30)
[2019-03-19] MEDS: INSULIN ASPART 100 UNITS/ML VIAL SC SCH ×2 (09:45→14:26)
[2019-03-19] MEDS: NovoLOG INSULIN PUMP SCH ×3 (10:15→21:20)
--- NOTE | 2019-03-19 10:48 | Pharmacy Report ---
Pharmacy Glycemic Short Note 2 - Date of Service March 19, 2019 - Glycemic Short BSG Results (Last 24 hours): 03/18/19 03/18/19 03/18/19 12:04 17:08 20:41 Glucose POC Glucose 167 H 154 H 170 H 03/19/19 03/19/19 05:05 08:17 Glucose 237 H POC Glucose 286 H ASSESSMENT: * 43 y/o M admitted s/p MIGUEL. PMH pertinent for chronic renal insufficiency and T1DM, managed with an insulin pump. * Patient was running basal rate only while NPO in surgery. BSGs have fallen slightly due to NPO status but patient eating a sandwich when I walked into the room. * Insulin pump on and patient has already signed pump agreement. He wishes to c ontinue while inpatient. * No steroids received in surgery so do not anticipate significant glycemic changes 03/19: * Patient maintained on insulin pump last 24 hrs. BSGs yesterday well controlled 167-154-170 * BSG this morning elevated at 286 mg/dL - talked with patient and needs new cartridge/part for pump and so pump has been off since earlier this morning. States he is unable to have bring in until later this afternoon. * Patient agreeable to utilize SQ basal/bolus insulin today for glucose control and then change back to pump tomorrow morning * Patient states he usually takes Lantus 15 units when he is off the insulin pump and usually this will cover his meal insulin too. Patient reports since being in the hospital he is not eating anything * Denies eating any breakfast this morning - therefore will give a reduced basal dose of Lantus this morning / will order novolog similar to pump settings with meals PLAN FOR INPATIENT GLYCEMIC CONTROL: * Hold outpatient oral diabetes medications * Basal insulin * Lantus 12 units x 1 * Bolus insulin * NovoLog per scale ACHS or Q6hrs while NPO * Goal Range: Low 100 mg/dL - High 150 mg/dL * Correction Factor: 55 mg/dL/unit * Nutritional / Prandial insulin per carb ratio of 1 unit per 20 grams CHO consumed
--- NOTE | 2019-03-19 17:24 | Hospitalist Progress Note ---
Date of Service March 19, 2019 Assessment & Plan (1) Diabetes: Constantine Dalton is a 43 year old man with a past medical history significant for CAD s/p STEMI, DMI status post renal transplant and BKA on immunosuppressive therapy who underwent right total hip replacement on 03/17/2019. we have been consulted for for general medical management. Acute blood loss anemia Hb 8.7 In the postop period Decision to transfuse because of history of [place], hemoglobin improved, vital signs are stable Follow daily H&H Coronary Artery Disease History of [place] with stent placement in [address] Hadley at [facility]. He is currently on his home MONA-I, Metoprolol, high intensity statin, and daily asa 81 Continue clopidogrel End-stage renal disease S/p kidney transplant Patient with history of diabetic nephropathy and kidney replacement in 2002 Creatinine remains elevated from baselineEncourage p.o., hold Lasix/Give IV fluids if it continues to rise tomorrow He has baseline creatinine 3-4 over the past year, most recently on new years of 3.69 Continuing tacrolimus, sirolimus and prednisone Dr. Samson, primary care provider aware DMI Has been under tighter control since starting continuous glucose monitor and insulin pump last A1c 7. Pharmacy consulted for glycemic management Patient will continue to use his home insulin pump DVT Prophylaxis Patient on ASA 81 and clopidogrel 75 mg Pain Control s/p right hip replacement Improved today, continue pain regimen as prescribed by Ortho Full code F/E/N: DM I diet DVT PPx: ASA and clopidogrel (2) HTN (hypertension): (3) End-stage renal failure with renal transplant: (4) Avascular necrosis of bone of right hip: (5) Depression: (6) Gastroesophageal reflux: (7) Dyslipidemia: (8) Diabetic peripheral neuropathy: (9) S/P BKA (below knee amputation) unilateral: Supervising Physician Co-Signing Physician Notes Resident Physician Supervision Note: I independently interviewed and examined the patient and verified the landin history and physical, reviewed labs and image studies, discussed the case with t juan r resident Dr. Harmon and agree with the findings and care plan. Subjective Patient states that he is feeling much better today. He still complains of pain on his right hip extending down his right leg.He said that he slept well last night and is tolerating His current diet. Review of Systems Constitutional: no fever, no chills and no fatigue Respiratory: no cough, no dyspnea and no wheezing Cardiovascular: no chest pain, no palpitations and no edema Gastrointestinal: no nausea, no vomiting and no diarrhea/loose stools Genitourinary: no dysuria Musculoskeletal: + back pain and + joint pain (rigth hip and right leg pain ) Physical Exam Constitutional: WD/WN, vitals as above Eyes: PERRL, conjunctivae normal, anicteric sclerae ENMT: external ear and nose normal, oropharynx normal Neck: trachea midline, no thyromegaly Respiratory: normal respiratory effort, lungs clear to auscultation Cardiovascular: RRR, no murmur, no edema Gastrointestinal (Abdomen): normal bowel sounds, soft, nontender, no hepatosplenomegaly Musculoskeletal: Dry, clean, intact bandage over the right lateral hip. Ecchymosis surrounding noted Neurologic: PERRL, EOMI, accommodation nl, no face palsy, no dysarthria Psychiatric: A+Ox3, euthymic affect Results & Data Vital Signs (Past 12 Hours) Vital Signs Temp Pulse Resp BP BP Pulse Ox 03/19/19 15:18 37.2 C 99 H 18 132/74 98 03/19/19 07:05 36.9 C 94 H 20 148/85 H 97 Resident Activity Tracking Resident Involvement: Resident Care Provided Care Provided: Adult Hospital Medicine (1) Diabetes Chronic kidney disease stage: stage 4 (severe) Diabetes mellitus complication detail: with chronic kidney disease Diabetes mellitus complication status: with kidney complications Diabetes mellitus type: type 1 Qualified Code(s): E10.22 - Type 1 diabetes mellitus with diabetic chronic kidney disease; N18.4 - Chronic kidney disease, stage 4 (severe) (2) HTN (hypertension) Hypertension type: renovascular hypertension Qualified Code(s): I15.0 - Renovascular hypertension
--- NOTE | 2019-03-19 19:16 | Progress Note ---
DATE: 03/19/2019 SUBJECTIVE: 43-year-old gentleman postop day 2 from a right hip replacement. He has really struggled with pain after the spinal wore off. We have increased his pain medicine. He is doing a little bit better. He has not really been out of bed much and I saw him getting out of bed for the first time this afternoon. Denies any chest pain or shortness of breath. Not feeling dizzy or lightheaded. OBJECTIVE: VITAL SIGNS: Temperature 37.2. Vital signs stable. GENERAL: Relatively pleasant, middle-aged male. He does not look extremely uncomfortable. He is sitting up in his bedside chair. EXTREMITIES: Examination of the right hip reveals leg lengths to be equal. Dressing is clean, dry and intact. Thigh is soft and supple. He is neurologically intact. He can dorsiflex and plantarflex his foot appropriately. LABORATORY DATA: Hemoglobin 9.3. Hematocrit 29.1. Electrolytes relatively stable. Creatinine is still slightly elevated above his baseline at about 4.20. ASSESSMENT: 43-year-old gentleman with multiple comorbidities including diabetes and a kidney transplant postop day 2 from a right hip replacement. He has really struggled with pain likely related to his narcotic consumption before surgery. His leg seems to be working reasonably well and appropriately. PLAN: 1. DVT prophylaxis including thigh-high TEDs, SCDs, and he is back on Plavix and aspirin. 2. PT/OT. Weight bear as tolerated. Right total hip protocol. 3. Pain control. We have increased his pain medicine and he is doing a bit better 4. Medical management as per the medicine service. 5. Disposition. He has decided he would like to go to rehab. Social service is looking into this.
[2019-03-19] MEDS: SIROLIMUS 0.5 MG TABLET PO SCH (22:14)
[2019-03-19] MEDS: PANTOprazole 40 MG TAB PO SCH (22:14)
[2019-03-19] MEDS: ASPIRIN 81 MG ECTAB PO SCH (22:15)
[2019-03-19] MEDS: SENNA 8.6 MG TAB PO SCH (22:15)
[2019-03-19] MEDS: METOPROLOL SUCC 50MG EXT REL TAB PO SCH (22:15)
[2019-03-19] MEDS: SERTRALINE HCL 50 MG TABLET PO SCH (22:17)
[2019-03-19] MEDS: metOLazone 5 MG TABLET PO SCH (22:17)
[2019-03-19] MEDS: predniSONE 5 MG TAB PO SCH (22:18)
[2019-03-19] MEDS: allopurinoL 300 MG TAB PO SCH (22:18)
[2019-03-19] MEDS: ATORVASTATIN 40 MG TAB PO SCH (22:19)
[2019-03-19] MEDS: ENALAPRIL MALEATE 10 MG TAB PO SCH (22:19)
[2019-03-20] MEDS: NovoLOG INSULIN PUMP SCH ×6 (00:07→21:07)
[2019-03-20 07:12] LABS: Hematocrit (blood only) 28.4 % (42-52); Hemoglobin 9.2 g/dL (14.0-18.0); Mean Corpuscular Hemoglobin 26.7 pg (25-34); Mean Corpuscular Hgb Conc 32.4 g/dL (32-36); Mean Corpuscular Volume 82.6 fL (80-100); Mean Platelet Volume 12.1 fL (7.4-10.4); Platelet Count 129 K/uL (130-400); RDW Coefficient of Variation 15.8 % (11.5-14.5); RDW Standard Deviation 47.9 fL (36.4-46.3); Red Blood Count 3.44 M/uL (4.7-6.1); White Blood Count 12.56 K/uL (4.8-10.8)
[2019-03-20 07:13] LABS: Acanthocytes 1+; Echinocytes 2+; Eosinophils # (auto) 0.04 K/uL (0-0.5); Eosinophils % (auto) 0.3 %; Immature Granulocytes # (auto) 0.03 K/uL (0.00-0.02); Immature Granulocytes % (auto) 0.2 %; Lymphocytes % (auto) 4.8 %; Monocytes % (auto) 4.8 %; Neutrophils # (auto) 11.29 K/uL (1.4-6.5); Neutrophils % (auto) 89.9 %
[2019-03-20 07:37] LABS: BUN Creatinine Ratio 19.8 (10-20); Calcium 8.9 mg/dl (8.5-10.1); Creatinine Clr Calc Pharmacy 18.4 ml/min; Est GFR (African American) 17.3; Est GFR (Non-African American) 14.9; Potassium 4.5 mmol/L (3.5-5.1)
[2019-03-20] MEDS: CLOPIDOGREL BISULFATE 75 MG TAB PO SCH (08:07)
[2019-03-20] MEDS: DOXYCYCLINE HYCLATE 50 MG CAP PO SCH ×2 (08:07→21:05)
[2019-03-20] MEDS: DOCUSATE SODIUM 100 MG CAP PO SCH ×2 (08:07→21:06)
[2019-03-20] MEDS: TACROLIMUS 1 MG CAP PO SCH ×2 (08:07→21:07)
[2019-03-20] MEDS: ASCORBIC ACID 500 MG TAB PO SCH ×2 (08:07→17:44)
[2019-03-20] MEDS: FUROSEMIDE 40 MG TAB PO SCH (08:07)
[2019-03-20] MEDS: MULTIVITAMIN TAB PO SCH (08:07)
[2019-03-20] MEDS: FERROUS GLUCONATE 324 MG TAB PO SCH ×2 (08:07→17:44)
[2019-03-20] MEDS: HYDROmorphone HCL 2 MG TAB PO PRN ×4 (08:11→23:44)
[2019-03-20] MEDS: PREGABALIN 75 MG CAP PO SCH ×2 (08:13→21:05)
--- NOTE | 2019-03-20 09:47 | Progress Note ---
DATE: 03/20/2019 SUBJECTIVE: A 43-year-old gentleman postop day 3 from a right total hip replacement. He is doing a little bit better this morning. The pain seems to be a little bit better. No new complaints. No chest pain or shortness of breath. Not feeling dizzy or lightheaded. OBJECTIVE: VITAL SIGNS: Temperature 36.7. Vital signs stable. GENERAL: Shows a pleasant, middle-aged male. He is lying in bed, looks comfortable this morning. EXTREMITIES: Examination of the right hip and leg reveals the leg to be well aligned. His thigh is soft and supple. Dressing is clean, dry, and intact. He can dorsiflex and plantarflex his foot appropriately. He is neurologically intact. LABORATORY DATA: Hemoglobin is stable at 9.2, hematocrit 28.4. Electrolytes are stable. Creatinine continues to be slightly elevated above baseline. ASSESSMENT: A 43-year-old gentleman postop day 3 from right hip replacement, doing reasonably well. Pain seems to be a little bit better today. Hemoglobin is stable. He has got some underlying chronic anemia. He is asymptomatic. PLAN: 1. DVT prophylaxis including thigh-high TEDs, SCDs, and aspirin twice a day. We will hold all other NSAIDs. 2. PT/OT. He can weightbear as tolerated. 3. Pain control. We will continue using Tylenol and limit narcotics. Cannot use NSAIDs due to his renal function. 4. Medical management as per the medicine service. 5. Disposition: He is hoping to go for a brief rehab stay. We will try and work on approval for that. He is medically reasonably stable for transfer any time, we can get approval.
[2019-03-20] MEDS: HYDROmorphone INJ 1 MG/ML SYRINGE IV PRN ×2 (15:00→21:08)
--- NOTE | 2019-03-20 15:51 | Progress Note ---
Date of Service March 20, 2019 Assessment & Plan (1) Diabetes: Constantine Dalton is a 43 year old male with a past medical history significant for CAD s/p STEMI, DM I, LT BKA, DIANE, gout, status post renal transplant and on immunosuppressive therapy --diagnosed with aseptic bilateral hip necrosis, underwent right total hip replacement on 03/17/2019. Medicine service consulted for for general medical management. Bilateral avascular necrosis of hips, status post right total hip replacement 17 March -Pain control and care per orthopedics Acute blood loss anemia in perioperative period, history of chronic normocytic anemia Hb 8.7 initially postop, baseline hemoglobin between 9 and 10. Received PRBCs given CAD. Has always remained hemodynamically stable. Follow daily H&H Coronary Artery Disease History of [place] with stent placement [place] [address] Hadley at [facility]. Continue his home MONA-I, Metoprolol, high intensity statin, and daily asa 81 No acute issues, continue clopidogrel End-stage renal disease S/p kidney transplant Patient with history of diabetic nephropathy and kidney replacement in 2002. Follows Dr. Samson, who notes his serum creatinine has been somewhat higher than his baseline (2.5-3) preoperatively, but has been taking an MONA inhibitor, and a Lasix and metolazone for blood pressure control--he also noted his BUN is disproportionately elevated, which it continues to do, which may indicate that his renal function is better than it appears. He continues to have no symptoms of uremia or volume overload here in the hospital. Encourage p.o., hold Lasix starting 21 March Continuing tacrolimus, sirolimus and prednisone DMI Has been under tighter control since starting continuous glucose monitor and insulin pump last A1c 7. Pharmacy consulted for glycemic management No acute issues, patient will continue to use his home insulin pump Full code F/E/N: DM I diet DVT PPx: ASA and clopidogrel Dispo: Awaiting SNF placement for rehab Chronic kidney disease stage: stage 4 (severe) Diabetes mellitus complication detail: with chronic kidney disease Diabetes mellitus complication status: with kidney complications Diabetes mellitus type: type 1 Qualified Code(s): E10.22 - Type 1 diabetes mellitus with diabetic chronic kidney disease; N18.4 - Chronic kidney disease, stage 4 (severe) (2) HTN (hypertension): Hypertension type: renovascular hypertension Qualified Code(s): I15.0 - Renovascular hypertension (3) End-stage renal failure with renal transplant: (4) Avascular necrosis of bone of right hip: (5) Depression: (6) Gastroesophageal reflux: (7) Dyslipidemia: (8) Diabetic peripheral neuropathy: (9) S/P BKA (below knee amputation) unilateral: Supervising Physician Co-Signing Physician Notes Resident Physician Supervision Note: I independently interviewed and examined the patient and verified the landin history and physical, reviewed labs and image studies, discussed the case with the resident Dr. Harmon and agree with the findings and care plan. Subjective Patient sitting upright in bed. He is tolerating full diet. Denies any chest pressure, chest pain, difficulty breathing. He is working with PT and OT. Pain is controlled. We discussed his labs including a slight bump in his creatinine today. Review of Systems Review of Systems: All systems reviewed & are unremarkable except as noted in HPI & below Physical Exam Physical Exam: Vitals noted and within normal limits GENERAL: Awake, alert to person, place, and time, nontoxic-appearing, in no distress. HENT: Normocephalic, atraumatic. Mucus membranes appear moist. EYES: Normal conjunctiva. Sclera non-icteric. EOMI. NECK: Supple. Full range of motion. No JVD. RESPIRATORY: Clear to auscultation. Normal work of breathing. CARDIAC: Regular rate, normal rhythm. Extremities warm and well perfused, ABDOMEN: Soft, non-distended. No tenderness to palpation in all four quadrants. No rebound or guarding. No masses. Bowel sounds are normal. LOWER EXTREMITIES: Status post left BKA. Inspection of calf is normal. Is non- tender. No edema. No discoloration. Surgical packing in place over right hip. NEURO: No gross focal motor deficits noted. Sensation in tact. CN II-XII grossly in tact. . SKIN: Rash not present. No jaundice noted. Warm, dry and intact. PSYCH: Appropriate mood and affect. Cooperative. Exam as done by Shana Harmon MD, Strategic Marketing Manager. Results & Data Vital Signs (Past 12 Hours) Vital Signs Temp Pulse Resp BP Pulse Ox 03/20/19 15:30 36.6 C 86 16 91/50 L 96 03/20/19 07:42 36.7 C 90 16 127/80 97 Laboratory Results 03/20/19 03/20/19 03/20/19 Range/Units 12:32 08:20 06:19 WBC (4.8-10.8) K/uL RBC (4.7-6.1) M/uL Hgb (14.0-18.0) g/dL Hct (42-52) % MCV (80-100) fL MCH (25-34) pg MCHC (32-36) g/dL RDW Std Deviation (36.4-46.3) fL RDW Coeff of Michelle (11.5-14.5) % Plt Count (130-400) K/uL MPV (7.4-10.4) fL Immature Gran % (Auto) % Neut % (Auto) % Lymph % (Auto) % Crawford % (Auto) % Eos % (Auto) % Baso % (Auto) % Immature Gran # (Auto) (0.00-0.02) K/uL Neut # (Auto) (1.4-6.5) K/uL Lymph # (Auto) (1.2-3.4) K/uL Crawford # (Auto) (0.11-0.59) K/uL Eos # (Auto) (0-0.5) K/uL Baso # (Auto) (0-0.2) K/uL Echinocytes Acanthocytes (Spur) Sodium 135 L (136-145) mmol/L Potassium 4.5 (3.5-5.1) mmol/L Chloride 105 (98-107) mmol/L Carbon Dioxide 21 (21-32) mmol/L Anion Gap 9.0 (3-11) BUN 89 H (7-18) mg/dl Creatinine 4.50 H D (0.6-1.4) mg/dl Est Cr Clr Drug Dosing 18.4 ml/min Est GFR ( Amer) 17.3 Est GFR (Non-Af Amer) 14.9 BUN/Creatinine Ratio 19.8 (10-20) Glucose 126 H (70-99) mg/dl POC Glucose 209 H 121 H (70-99) mg/dl Calcium 8.9 (8.5-10.1) mg/dl Crossmatch 03/20/19 03/20/19 03/20/19 Range/Units 06:19 04:08 00:07 WBC 12.56 H (4.8-10.8) K/uL RBC 3.44 L (4.7-6.1) M/uL Hgb 9.2 L (14.0-18.0) g/dL Hct 28.4 L (42-52) % MCV 82.6 (80-100) fL MCH 26.7 (25-34) pg MCHC 32.4 (32-36) g/dL RDW Std Deviation 47.9 H (36.4-46.3) fL RDW Coeff of Michelle 15.8 H (11.5-14.5) % Plt Count 129 L (130-400) K/uL MPV 12.1 H (7.4-10.4) fL Immature Gran % (Auto) 0.2 % Neut % (Auto) 89.9 % Lymph % (Auto) 4.8 % Crawford % (Auto) 4.8 % Eos % (Auto) 0.3 % Baso % (Auto) 0.0 % Immature Gran # (Auto) 0.03 H (0.00-0.02) K/uL Neut # (Auto) 11.29 H (1.4-6.5) K/uL Lymph # (Auto) 0.60 L (1.2-3.4) K/uL Crawford # (Auto) 0.60 H (0.11-0.59) K/uL Eos # (Auto) 0.04 (0-0.5) K/uL Baso # (Auto) 0.00 (0-0.2) K/uL Echinocytes 2+ Acanthocytes (Spur) 1+ Sodium (136-145) mmol/L Potassium (3.5-5.1) mmol/L Chloride (98-107) mmol/L Carbon Dioxide (21-32) mmol/L Anion Gap (3-11) BUN (7-18) mg/dl Creatinine (0.6-1.4) mg/dl Est Cr Clr Drug Dosing ml/min Est GFR ( Amer) Est GFR (Non-Af Amer) BUN/Creatinine Ratio (10-20) Glucose (70-99) mg/dl POC Glucose 152 H 143 H (70-99) mg/dl Calcium (8.5-10.1) mg/dl Crossmatch 03/19/19 03/19/19 03/17/19 Range/Units 21:04 17:12 09:02 WBC (4.8-10.8) K/uL RBC (4.7-6.1) M/uL Hgb (14.0-18.0) g/dL Hct (42-52) % MCV (80-100) fL MCH (25-34) pg MCHC (32-36) g/dL RDW Std Deviation (36.4-46.3) fL RDW Coeff of Michelle (11.5-14.5) % Plt Count (130-400) K/uL MPV (7.4-10.4) fL Immature Gran % (Auto) % Neut % (Auto) % Lymph % (Auto) % Crawford % (Auto) % Eos % (Auto) % Baso % (Auto) % Immature Gran # (Auto) (0.00-0.02) K/uL Neut # (Auto) (1.4-6.5) K/uL Lymph # (Auto) (1.2-3.4) K/uL Crawford # (Auto) (0.11-0.59) K/uL Eos # (Auto) (0-0.5) K/uL Baso # (Auto) (0-0.2) K/uL Echinocytes Acanthocytes (Spur) Sodium (136-145) mmol/L Potassium (3.5-5.1) mmol/L Chloride (98-107) mmol/L Carbon Dioxide (21-32) mmol/L Anion Gap (3-11) BUN (7-18) mg/dl Creatinine (0.6-1.4) mg/dl Est Cr Clr Drug Dosing ml/min Est GFR ( Amer) Est GFR (Non-Af Amer) BUN/Creatinine Ratio (10-20) Glucose (70-99) mg/dl POC Glucose 219 H 269 H (70-99) mg/dl Calcium (8.5-10.1) mg/dl Crossmatch See Detail Resident Activity Tracking Resident Involvement: Resident Care Provided Care Provided: Adult Hospital Medicine
[2019-03-20] MEDS: SERTRALINE HCL 50 MG TABLET PO SCH (21:05)
[2019-03-20] MEDS: PANTOprazole 40 MG TAB PO SCH (21:05)
[2019-03-20] MEDS: ASPIRIN 81 MG ECTAB PO SCH (21:05)
[2019-03-20] MEDS: predniSONE 5 MG TAB PO SCH (21:06)
[2019-03-20] MEDS: ATORVASTATIN 40 MG TAB PO SCH (21:06)
[2019-03-20] MEDS: SENNA 8.6 MG TAB PO SCH (21:06)
[2019-03-20] MEDS: SIROLIMUS 0.5 MG TABLET PO SCH (21:06)
[2019-03-20] MEDS: allopurinoL 300 MG TAB PO SCH (21:08)
[2019-03-20] MEDS: METOPROLOL SUCC 50MG EXT REL TAB PO SCH (21:13)
[2019-03-21] MEDS: HYDROmorphone HCL 2 MG TAB PO PRN ×5 (04:40→23:02)
[2019-03-21 06:40] LABS: Eosinophils # (auto) 0.25 K/uL (0-0.5); Eosinophils % (auto) 2.2 %; Hematocrit (blood only) 27.8 % (42-52); Immature Granulocytes # (auto) 0.04 K/uL (0.00-0.02); Immature Granulocytes % (auto) 0.4 %; Lymphocytes # (auto) 0.69 K/uL (1.2-3.4); Lymphocytes % (auto) 6.2 %; Mean Corpuscular Hemoglobin 26.9 pg (25-34); Mean Corpuscular Hgb Conc 32.4 g/dL (32-36); Mean Platelet Volume 11.9 fL (7.4-10.4); Monocytes # (auto) 0.82 K/uL (0.11-0.59); Monocytes % (auto) 7.3 %; Neutrophils # (auto) 9.36 K/uL (1.4-6.5); Neutrophils % (auto) 83.9 %; Platelet Count 133 K/uL (130-400); RDW Coefficient of Variation 15.9 % (11.5-14.5); RDW Standard Deviation 48.6 fL (36.4-46.3); Red Blood Count 3.35 M/uL (4.7-6.1); White Blood Count 11.16 K/uL (4.8-10.8)
[2019-03-21 07:14] LABS: BUN Creatinine Ratio 19.1 (10-20); Calcium 8.8 mg/dl (8.5-10.1); Creatinine Clr Calc Pharmacy 17.4 ml/min; Est GFR (African American) 16.1; Est GFR (Non-African American) 13.9; Potassium 4.5 mmol/L (3.5-5.1)
[2019-03-21] MEDS ORDERED: D5W AND 1/2NSS 1,000 ML IV SCH (08:00)
[2019-03-21] MEDS: CLOPIDOGREL BISULFATE 75 MG TAB PO SCH (08:24)
[2019-03-21] MEDS: ASCORBIC ACID 500 MG TAB PO SCH ×2 (08:24→17:56)
[2019-03-21] MEDS: DOCUSATE SODIUM 100 MG CAP PO SCH ×2 (08:25→21:01)
[2019-03-21] MEDS: FERROUS GLUCONATE 324 MG TAB PO SCH ×2 (08:25→17:56)
[2019-03-21] MEDS: MULTIVITAMIN TAB PO SCH (08:25)
[2019-03-21] MEDS: TACROLIMUS 1 MG CAP PO SCH ×2 (08:25→21:00)
[2019-03-21] MEDS: DOXYCYCLINE HYCLATE 50 MG CAP PO SCH ×2 (08:25→21:00)
[2019-03-21] MEDS: PREGABALIN 75 MG CAP PO SCH ×2 (08:41→21:04)
[2019-03-21] MEDS: NovoLOG INSULIN PUMP SCH ×4 (08:42→21:09)
--- NOTE | 2019-03-21 11:25 | XRay Report ---
XR femur RT 2V routine CLINICAL HISTORY: 43 years-old Male presenting with Excessive Pain after THR. TECHNIQUE: Frontal and lateral views of the right femur were obtained. COMPARISON: 03/17/2019. FINDINGS: Redemonstration of the postsurgical changes of total right hip arthroplasty. Overlying skin ernst n oted. Decreased soft tissue emphysema. No malalignment. No periprosthetic fracture or lucency. Knee j oint congruent. Vasectomy clips noted. Visualized portion of the pelvis within normal limits. Calcifi cation of the vas deferentia suggests underlying diabetes. IMPRESSION: 1. Expected postsurgical appearance status post total right hip arthroplasty. 2. No acute osseous injury. ACT 112: Negative or not required by law. Electronically signed by: Erwin Bernardo M.D. 03/21/2019 11:24 AM
--- NOTE | 2019-03-21 11:27 | XRay Report ---
XR hip 1V RT w pelvis CLINICAL HISTORY: 43 years-old Male presenting with Excessive pain after THR. TECHNIQUE: Single frontal view of the pelvis was obtained as well as frontal and crosstable lateral v iews of the right hip. COMPARISON: 03/17/2019. FINDINGS: Expected postsurgical appearance status post total right hip arthroplasty as on prior exam. Overlying skin ernst. Decreased soft tissue emphysema. No malalignment. No periprosthetic fracture. Bony pel vis otherwise intact. Sacroiliac joints, pubic symphysis, and left hip joint congruent. Vasectomy cli ps noted. Calcification of the vas deferentia likely indicates underlying diabetes. Atherosclerotic c alcifications. IMPRESSION: 1. Expected postsurgical appearance of the total right hip arthroplasty. 2. No acute osseous injury. ACT 112: Negative or not required by law. Electronically signed by: Erwin Bernardo M.D. 03/21/2019 11:26 AM
--- NOTE | 2019-03-21 12:16 | Progress Note ---
DATE: 03/21/2019 SUBJECTIVE: A 43-year-old gentleman with multiple medical comorbidities, now postop day 4 from right total hip replacement. He is making some gradual improvements with pain, but still really quite painful for this procedure. No other real complaints. He is voiding well. No chest pain or shortness of breath. Not feeling dizzy or lightheaded. OBJECTIVE: VITAL SIGNS: Temperature 36.6. Vital signs stable. GENERAL: Shows a pleasant, middle-aged male. He is lying in bed, looks reasonably comfortable. EXTREMITIES: Examination of the right leg reveals it to be well aligned. His dressing is clean, dry and intact. Thigh is soft and supple. He can dorsiflex and plantarflex his foot appropriately. He is neurologically intact. LABORATORY DATA: His hemoglobin is stable at 9.0. Hematocrit 27.8. White cell count is slightly elevated likely related to stress. Creatinine continues to be elevated at 4.76. ASSESSMENT: A 43-year-old gentleman with multiple medical comorbidities including heart disease, diabetes, and status post renal transplant postop day 4 from a total hip replacement, doing okay. He is having more pain than usual, but x-rays look fine. His leg clinically looks very well. His creatinine continues to elevate despite stopping his diuretics and his MONA inhibitor. He is voiding well without any problems subjectively. PLAN: 1. DVT prophylaxis include thigh-high TEDs, SCDs and baby aspirin once a day. He is also on Plavix. 2. PT/OT. He can weightbear as tolerated in the right leg. He should obey hip precautions. 3. Pain control, seems to be doing okay with current pain regimen, although he is having quite a bit more pain than typical patient after hip replacement. I did review his x-rays and everything looks okay. We may repeat a film today just to make sure. 4. Medical management as per the medical doctors. We will let them manage his renal function as well as other medical issues. 5. Disposition. He is hoping to be discharged to rehab. We are just waiting to get approval.
--- NOTE | 2019-03-21 12:22 | Progress Note ---
Date of Service March 21, 2019 Assessment & Plan (1) Diabetes: Constantine Dalton is a 43 year old male with a past medical history significant for CAD s/p STEMI, DM I, LT BKA, DIANE, gout, status post renal transplant and on immunosuppressive therapy --diagnosed with aseptic bilateral hip necrosis, underwent right total hip replacement on 03/17/2019. Medicine service consulted for for general medical management. Bilateral avascular necrosis of hips, status post right total hip replacement 17 March -Pain control and care per orthopedics Coronary Artery Disease History of [place] with stent placement in [address] Hadley at [facility]. Continue his home MONA-I, Metoprolol, high intensity statin, and daily asa 81 No acute issues, continue clopidogrel End-stage renal disease S/p kidney transplant, [facility] Patient with history of diabetic nephropathy and kidney replacement in 2002. Follow[address] Samson, who notes his serum creatinine has been somewhat higher than his baseline (2.5-3) preoperatively, but has been taking an MONA inhibitor, and a Lasix and metolazone for blood pressure control--he also noted his BUN is disproportionately elevated, which it continues to do, which may indicate that his renal function is better than it appears. -He continues to have no symptoms of uremia or volume overload here in the hospital. Encourage p.o. fluids - ADD 500mL IVF today, recheck BMP in afternoon. -HOLDing Lasix starting 21 March. HOLDing metolazone and MONA I starting . Continuing tacrolimus, sirolimus and prednisone DMI Has been under tighter control since starting continuous glucose monitor and insulin pump last A1c 7. Pharmacy consulted for glycemic management No acute issues, patient will continue to use his home insulin pump Acute blood loss anemia in perioperative period, history of chronic normocytic anemia Hb 8.7 initially postop, baseline hemoglobin between 9 and 10. Received PRBCs given CAD. Has always remained hemodynamically stable. Resolved. Full code F/E/N: DM I diet DVT PPx: ASA and clopidogrel Dispo: Awaiting SNF placement for rehab Chronic kidney disease stage: stage 4 (severe) Diabetes mellitus complication detail: with chronic kidney disease Diabetes mellitus complication status: with kidney complications Diabetes mellitus type: type 1 Qualified Code(s): E10.22 - Type 1 diabetes mellitus with diabetic chronic kidney disease; N18.4 - Chronic kidney disease, stage 4 (severe) (2) HTN (hypertension): Hypertension type: renovascular hypertension Qualified Code(s): I15.0 - Renovascular hypertension (3) End-stage renal failure with renal transplant: (4) Avascular necrosis of bone of right hip: (5) Depression: (6) Gastroesophageal reflux: (7) Dyslipidemia: (8) Diabetic peripheral neuropathy: (9) S/P BKA (below knee amputation) unilateral: Supervising Physician Co-Signing Physician Notes Resident Physician Supervision Note: I independently interviewed and examined the patient and verified the landin history and physical, reviewed labs and image studies, discussed the case with the resident Dr. Harmon and agree with the findings and care plan. Subjective Patient sitting upright in bed. He is tolerating full diet. Denies any chest pressure, chest pain, difficulty breathing. He is working with PT and OT. Pain is moderately controlled, motivated towards rehab. We discussed his labs including ongoing slight increase in his creatinine today. This was also discussed with his PCP Dr. Samson. Review of Systems Review of Systems: All systems reviewed & are unremarkable except as noted in HPI & below Physical Exam Physical Exam: Vitals noted and within normal limits GENERAL: Awake, alert to person, place, and time, nontoxic-appearing, in no distress. HENT: Normocephalic, atraumatic. Mucus membranes appear moist. EYES: Normal conjunctiva. Sclera non-icteric. EOMI. NECK: Supple. Full range of motion. No JVD. RESPIRATORY: Normal work of breathing. CARDIAC: Regular rate, normal rhythm. Extremities warm and well perfused. ABDOMEN: Soft, non-distended. LOWER EXTREMITIES: Status post left BKA. Surgical packing in tact over right hip. NEURO: No gross focal motor deficits noted. Sensation in tact. CN II-XII grossly in tact. SKIN: Rash not present. No jaundice noted. PSYCH: Appropriate mood and affect. Cooperative. Exam as done by Shana Harmon MD, Seaman Officer. Results & Data Vital Signs (Past 12 Hours) Vital Signs Temp Pulse Resp BP Pulse Ox 03/21/19 07:34 36.6 C 86 16 119/73 99 Laboratory Results 03/21/19 03/21/19 03/21/19 Range/Units 12:14 12:07 08:05 WBC (4.8-10.8) K/uL RBC (4.7-6.1) M/uL Hgb (14.0-18.0) g/dL Hct (42-52) % MCV (80-100) fL MCH (25-34) pg MCHC (32-36) g/dL RDW Std Deviation (36.4-46.3) fL RDW Coeff of Michelle (11.5-14.5) % Plt Count (130-400) K/uL MPV (7.4-10.4) fL Immature Gran % (Auto) % Neut % (Auto) % Lymph % (Auto) % Mingo % (Auto) % Eos % (Auto) % Baso % (Auto) % Immature Gran # (Auto) (0.00-0.02) K/uL Neut # (Auto) (1.4-6.5) K/uL Lymph # (Auto) (1.2-3.4) K/uL Mingo # (Auto) (0.11-0.59) K/uL Eos # (Auto) (0-0.5) K/uL Baso # (Auto) (0-0.2) K/uL Sodium (136-145) mmol/L Potassium (3.5-5.1) mmol/L Chloride (98-107) mmol/L Carbon Dioxide (21-32) mmol/L Anion Gap (3-11) BUN (7-18) mg/dl Creatinine (0.6-1.4) mg/dl Est Cr Clr Drug Dosing ml/min Est GFR ( Amer) Est GFR (Non-Af Amer) BUN/Creatinine Ratio (10-20) Glucose (70-99) mg/dl POC Glucose 347 H* 370 H* 190 H (70-99) mg/dl Calcium (8.5-10.1) mg/dl 03/21/19 03/21/19 03/20/19 Range/Units 06:12 06:12 20:59 WBC 11.16 H (4.8-10.8) K/uL RBC 3.35 L (4.7-6.1) M/uL Hgb 9.0 L (14.0-18.0) g/dL Hct 27.8 L (42-52) % MCV 83.0 (80-100) fL MCH 26.9 (25-34) pg MCHC 32.4 (32-36) g/dL RDW Std Deviation 48.6 H (36.4-46.3) fL RDW Coeff of Michelle 15.9 H (11.5-14.5) % Plt Count 133 (130-400) K/uL MPV 11.9 H (7.4-10.4) fL Immature Gran % (Auto) 0.4 % Neut % (Auto) 83.9 % Lymph % (Auto) 6.2 % Mingo % (Auto) 7.3 % Eos % (Auto) 2.2 % Baso % (Auto) 0.0 % Immature Gran # (Auto) 0.04 H (0.00-0.02) K/uL Neut # (Auto) 9.36 H (1.4-6.5) K/uL Lymph # (Auto) 0.69 L (1.2-3.4) K/uL Mingo # (Auto) 0.82 H (0.11-0.59) K/uL Eos # (Auto) 0.25 (0-0.5) K/uL Baso # (Auto) 0.00 (0-0.2) K/uL Sodium 134 L (136-145) mmol/L Potassium 4.5 (3.5-5.1) mmol/L Chloride 103 (98-107) mmol/L Carbon Dioxide 20 L (21-32) mmol/L Anion Gap 11.0 (3-11) BUN 91 H (7-18) mg/dl Creatinine 4.76 H* (0.6-1.4) mg/dl Est Cr Clr Drug Dosing 17.4 ml/min Est GFR ( Amer) 16.1 Est GFR (Non-Af Amer) 13.9 BUN/Creatinine Ratio 19.1 (10-20) Glucose 205 H (70-99) mg/dl POC Glucose 201 H (70-99) mg/dl Calcium 8.8 (8.5-10.1) mg/dl 03/20/19 03/20/19 Range/Units 16:57 12:32 WBC (4.8-10.8) K/uL RBC (4.7-6.1) M/uL Hgb (14.0-18.0) g/dL Hct (42-52) % MCV (80-100) fL MCH (25-34) pg MCHC (32-36) g/dL RDW Std Deviation (36.4-46.3) fL RDW Coeff of Michelle (11.5-14.5) % Plt Count (130-400) K/uL MPV (7.4-10.4) fL Immature Gran % (Auto) % Neut % (Auto) % Lymph % (Auto) % Mingo % (Auto) % Eos % (Auto) % Baso % (Auto) % Immature Gran # (Auto) (0.00-0.02) K/uL Neut # (Auto) (1.4-6.5) K/uL Lymph # (Auto) (1.2-3.4) K/uL Mingo # (Auto) (0.11-0.59) K/uL Eos # (Auto) (0-0.5) K/uL Baso # (Auto) (0-0.2) K/uL Sodium (136-145) mmol/L Potassium (3.5-5.1) mmol/L Chloride (98-107) mmol/L Carbon Dioxide (21-32) mmol/L Anion Gap (3-11) BUN (7-18) mg/dl Creatinine (0.6-1.4) mg/dl Est Cr Clr Drug Dosing ml/min Est GFR ( Amer) Est GFR (Non-Af Amer) BUN/Creatinine Ratio (10-20) Glucose (70-99) mg/dl POC Glucose 90 209 H (70-99) mg/dl Calcium (8.5-10.1) mg/dl Resident Activity Tracking Resident Involvement: Resident Care Provided Care Provided: Adult Hospital Medicine
--- NOTE | 2019-03-21 12:41 | Pharmacy Report ---
Pharmacy Glycemic Short Note 2 - Date of Service March 21, 2019 - Glycemic Short BSG Results (Last 24 hours): 03/20/19 03/20/19 03/20/19 12:32 16:57 20:59 Glucose POC Glucose 209 H 90 201 H 03/21/19 03/21/19 03/21/19 06:12 08:05 12:07 Glucose 205 H POC Glucose 190 H 370 H* 03/21/19 12:14 Glucose POC Glucose 347 H* ASSESSMENT: * 43 y/o M admitted s/p MIGUEL. PMH pertinent for chronic renal insufficiency and T1DM, managed with an insulin pump. * Patient was running basal rate only while NPO in surgery. BSGs have fallen slightly due to NPO status but patient eating a sandwich when I walked into the room. * Insulin pump on and patient has already signed pump agreement. He wishes to continue while inpatient. * No steroids received in surgery so do not anticipate significant glycemic changes 03/20: * Patient continues to use his own insulin pump for glycemic management. BSGs spiking up at lunch due to fluid bolus with dextrose given earlier this morning. Called and spoke with nurse and she informed me patient already bolused himself with pump for high BSG and plans to continue with carb coverage for lunch. Will continue to monitor closely - may need to intervene if BSGs remain elevated PLAN FOR INPATIENT GLYCEMIC CONTROL: Pt is to manage BSGs with insulin pump per outpatient settings. * RN will have patient read and sign agreement [id number] Insulin Pump Therapy Patient Agreement. * RN will provide and explain form [id number] Flowsheet for Patient * Patient will document their insulin dose given on [id number] which is kept at the bedside, available to caregivers upon request, and which becomes part of the permanent medical record. If at any time the patients condition evidences that he/she is not able to manage the insulin pump (i.e. frequent hypo/hyperglycemia) Pharmacy will assume glycemic control by discontinuing the pump & managing with SQ basal bolus insulin regimen for the interim.
[2019-03-21 14:43] LABS: BUN Creatinine Ratio 18.3 (10-20); Calcium 8.4 mg/dl (8.5-10.1); Creatinine Clr Calc Pharmacy 17.5 ml/min; Est GFR (African American) 16.2; Potassium 4.1 mmol/L (3.5-5.1)
[2019-03-21] MEDS ORDERED: SODIUM CHLORIDE 0.9% 500 ML IV SCH (15:15)
[2019-03-21] MEDS: HYDROmorphone INJ 1 MG/ML SYRINGE IV PRN ×2 (16:25→20:54)
[2019-03-21] MEDS: SENNA 8.6 MG TAB PO SCH (18:00)
[2019-03-21] MEDS: ASPIRIN 81 MG ECTAB PO SCH (21:00)
[2019-03-21] MEDS: predniSONE 5 MG TAB PO SCH (21:00)
[2019-03-21] MEDS: SIROLIMUS 0.5 MG TABLET PO SCH (21:00)
[2019-03-21] MEDS: PANTOprazole 40 MG TAB PO SCH (21:00)
[2019-03-21] MEDS: SERTRALINE HCL 50 MG TABLET PO SCH (21:00)
[2019-03-21] MEDS: ATORVASTATIN 40 MG TAB PO SCH (21:01)
[2019-03-21] MEDS: METOPROLOL SUCC 50MG EXT REL TAB PO SCH (21:01)
[2019-03-21] MEDS: allopurinoL 300 MG TAB PO SCH (21:04)
[2019-03-22] MEDS: HYDROmorphone INJ 1 MG/ML SYRINGE IV PRN ×2 (02:49→11:40)
[2019-03-22 05:45] LABS: BUN Creatinine Ratio 18.7 (10-20); Calcium 8.6 mg/dl (8.5-10.1); Est GFR (African American) 15.7; Est GFR (Non-African American) 13.5; Potassium 4.8 mmol/L (3.5-5.1)
[2019-03-22] MEDS ORDERED: SODIUM CHLORIDE 0.9% 500 ML IV ONE (07:15)
--- NOTE | 2019-03-22 07:55 | Progress Note ---
DATE: 03/22/2019 SUBJECTIVE: A 43-year-old gentleman with multiple medical comorbidities postop day 5 from a right uncemented hip replacement done for an extensive AVN. He is doing better this morning. Pain is improved, things was related to the sciatica per the patient. We did repeat x-rays of the entire femur yesterday and everything looks perfect. OBJECTIVE: VITAL SIGNS: Temperature 36.7. Vital signs stable. GENERAL: Shows a pleasant, middle-aged male. He is sitting up in bed, looks comfortable this morning. EXTREMITIES: Examination of the right leg reveals the leg to be well aligned. Dressing is clean, dry and intact. Thigh is soft and supple. He is neurologically intact. LABORATORY DATA: Creatinine continues to be slightly elevated at 4.87. ASSESSMENT: This is his baseline. He does have some chronic renal insufficiency, status post renal transplant. PLAN: 1. DVT prophylaxis including thigh-high TEDs, SCDs, and he is on 1 baby aspirin as well as Plavix. Especially considering his renal function, I do not think we went to changes on anticoagulation certainly no NSAIDs. 2. PT/OT. He can weightbear as tolerated. We did repeat his x-rays yesterday and they look perfect. No signs of problems related to his hip surgery. 3. Medical management as per the medicine service. 4. Elevated creatinine. We will follow medicine's recommendations. He has had several medicines stopped. Certainly will need to be followed as an outpatient. 5. Disposition: He is orthopedically okay for discharge if medically okay. Any orthopedic questions can be directed to me at [phone].
[2019-03-22] MEDS: NovoLOG INSULIN PUMP SCH ×4 (09:06→21:28)
[2019-03-22] MEDS: DOXYCYCLINE HYCLATE 50 MG CAP PO SCH ×2 (09:07→20:23)
[2019-03-22] MEDS: ASCORBIC ACID 500 MG TAB PO SCH ×2 (09:07→17:30)
[2019-03-22] MEDS: TACROLIMUS 1 MG CAP PO SCH ×2 (09:07→20:23)
[2019-03-22] MEDS: MULTIVITAMIN TAB PO SCH (09:07)
[2019-03-22] MEDS: FERROUS GLUCONATE 324 MG TAB PO SCH ×2 (09:07→17:31)
[2019-03-22] MEDS: CLOPIDOGREL BISULFATE 75 MG TAB PO SCH (09:07)
[2019-03-22] MEDS: DOCUSATE SODIUM 100 MG CAP PO SCH ×2 (09:08→20:25)
[2019-03-22] MEDS: HYDROmorphone HCL 2 MG TAB PO PRN ×3 (09:13→21:26)
[2019-03-22] MEDS: PREGABALIN 75 MG CAP PO SCH ×2 (09:16→20:25)
--- NOTE | 2019-03-22 15:33 | Hospitalist Progress Note ---
Date of Service March 22, 2019 Assessment & Plan (1) Diabetes: Constantine Dalton is a 43 year old male with a past medical history significant for CAD s/p STEMI, DM I, LT BKA, DIANE, gout, status post renal transplant and on immunosuppressive therapy --diagnosed with aseptic bilateral hip necrosis, underwent right total hip replacement on 03/17/2019. Medicine service consulted for for general medical management. Bilateral avascular necrosis of hips, status post right total hip replacement 17 March -Pain control and care per orthopedics Coronary Artery Disease History of [place] with stent placement in [address] Hadley at [facility]. Continue his home Metoprolol, high intensity statin, and daily asa 81 -Holding home MONA-I No acute issues, continue clopidogrel End-stage renal disease S/p kidney transplant, CH[facility]I Patient with history of diabetic nephropathy and kidney replacement in 2002. Follow[address] Dr[address] Samson, who notes his serum creatinine has been somewhat higher than his baseline (2.5-3) preoperatively, but has been taking an MONA inhibitor, and a Lasix and metolazone for blood pressure control--he also noted his BUN is disproportionately elevated, which it continues to do, which may indicate that his renal function is better than it appears. -He continues to have no symptoms of uremia or volume overload here in the hospital. Encouraging p.o. fluids - Gave extra 500mL bolus of normal saline today for second day in a row -HOLDing Lasix starting 21 March. HOLDing metolazone and MONA I starting . Continuing tacrolimus, sirolimus and prednisone DMI Has been under tighter control since starting continuous glucose monitor and insulin pump last A1c 7. Pharmacy consulted for glycemic management No acute issues, patient will continue to use his home insulin pump Acute blood loss anemia in perioperative period, history of chronic normocytic anemia Hb 8.7 initially postop, baseline hemoglobin between 9 and 10. Received PRBCs given CAD. Has always remained hemodynamically stable. Resolved. Full code F/E/N: DM I diet DVT PPx: ASA and clopidogrel Dispo: Awaiting SNF placement for rehab (2) HTN (hypertension): (3) End-stage renal failure with renal transplant: (4) Avascular necrosis of bone of right hip: (5) Depression: (6) Gastroesophageal reflux: (7) Dyslipidemia: (8) Diabetic peripheral neuropathy: (9) S/P BKA (below knee amputation) unilateral: Supervising Physician Co-Signing Physician Notes I personally examined the patient and verified all landin points of history and exam, discussed case, and agree with decision making with Dr Walsh. No new complaints today. Seen prior to nephrology evaluation. Awaiting input. Vitals noted, in general he is awake and alert pleasant no distress. HEENT normocephalic atraumatic mucous membranes moist. Breathing unlabored no accessory muscle use good effort. Skin shows no rashes no pallor or icterus. Neuro shows no focal deficits. ESRD status post transplant now with AKIseems possible that it relates to volume given that he is chronically on diuretics, and then was here for hip surgery. At the same time he was given a reasonable amount of volume a few days ago and his creatinine continued to rise, begging the question of another process at play versus if it was volume related if he has a degree of ATN. Continue supportive care, await nephrology input, fortunately does not appear to show any signs of acute decompensation. Otherwise as above. Subjective Mr. Dalton is doing quite well this morning watching sports talk shows and sitting up in bed this morning. When I had seen him last on he was in quite a bit of pain and having trouble just sitting still, he was also hallucinating and delirious. ALl of that has since resolved and he is doing well. He has been up on his feet without too much difficulty. Review of Systems Review of Systems: All systems reviewed & are unremarkable except as noted in HPI & below Physical Exam Physical Exam: Constitutional: 43 year old man appearing stated age, with a generally sallow complexion, resting comfortably in no apparent distress Eyes: Anicteric Sclerae, EOMMI bilaterally Respiratory: Chest expansion equal bilaterally, no increased work of breathing, breath sounds vesicular in all lung heaton Cardiovascular: Patient with grade 3 systolic murmur radiating to neck best heard at sternal border, regular rate regular rhythm GI: Abdomen soft, nontender, obese Skin: Dry clean no lesions Results & Data Vital Signs (Past 12 Hours) Vital Signs Temp Pulse Resp BP Pulse Ox 03/22/19 15:23 36.7 C 16 116/69 99 03/22/19 07:33 36.5 C 82 16 124/48 L 99 Resident Activity Tracking Resident Involvement: Resident Care Provided Care Provided: Adult Hospital Medicine (1) Diabetes Chronic kidney disease stage: stage 4 (severe) Diabetes mellitus complication detail: with chronic kidney disease Diabetes mellitus complication status: with kidney complications Diabetes mellitus type: type 1 Qualified Code(s): E10.22 - Type 1 diabetes mellitus with diabetic chronic kidney disease; N18.4 - Chronic kidney disease, stage 4 (severe) (2) HTN (hypertension) Hypertension type: renovascular hypertension Qualified Code(s): I15.0 - Renovascular hypertension
--- NOTE | 2019-03-22 20:00 | Consultation Report ---
DATE OF CONSULTATION: 03/22/[address] [facility] [address] [facility] SUBJECTIVE: Mr. Dalton is a 43-year-old gentleman well known to me. He has a longstanding history of type 1 insulin-dependent diabetes mellitus. Over the years, he was quite poorly controlled. His diabetes was complicated by retinopathy, for which he has undergone previous laser procedures as well as a vitrectomy many years ago. More recently, he has had only problems of background diabetic retinopathy, but no major hemorrhages or visual loss. He also has a history of peripheral neuropathy, which contributed to the development of an ulcer on his left heel about 2 years ago. That was ultimately associated with a loss of his left leg with a BK amputation. He still has some evidence of loss of protective sensation in his right leg. He has been rehabilitated from his BK amputation and does have a prosthesis. Additionally, he has a history of chronic renal failure associated with diabetic nephropathy. In 10/2000, he developed symptomatic uremia and volume overload. He was begun on maintenance dialysis at that time. In 03/2001, he received a living-related donor transplant from his mother. Initially, his renal function was relatively stable with a serum creatinine in the range of about 1.6-1.8 mg/dL. He had an acute rejection episode in 2002 that was treated with steroids. His immunosuppression was changed from tacrolimus and CellCept to a combination of tacrolimus, sirolimus and prednisone. His renal function has very slowly declined since that time. More recently, his serum creatinine has been stable in the range of about 3.5 mg/dL. Additionally, in about 2015, he developed an episode of chest discomfort. He had an increase in his cardiac isoenzymes and changes consistent with a lateral wall ST segment elevation [place]. He was taken to [facility] by Dr. Hadley. Multiple vessels were involved, but the most significant vessel at that time was his left anterior descending artery. He had an angioplasty and deployment of a drug-eluting stent at that time. Since that time, he was maintained on aspirin and clopidogrel. Additional issues include a history of obstructive sleep apnea that was diagnosed about 2-3 years ago. He does use CPAP at home and is followed by Dr. Bakari Mariscal. He has had episodes of volume overload. He is hypertensive. His blood pressure has been well controlled of late. His current antihypertensive regimen prior to his hospitalization included quinapril 20 mg daily in the morning and 40 mg in the evening, metolazone 10 mg daily with supplemental Lasix in a dose of 40 mg daily if he develops an elevated blood pressure or edema. He also takes metoprolol succinate ER 50 mg daily because of his history of coronary disease. He has a history of hypercholesterolemia that has been controlled with atorvastatin 80 mg taken at bedtime. Other issues include a history of gout, which is controlled with allopurinol. He also has a history of depression, which is multifactorial. He takes sertraline 50 mg daily. His other medicines are as listed. More recently, he has complained of bilateral hip pain. X-rays of his hip showed evidence of bilateral aseptic necrosis. This Seemed to be worse on the right than on the left, although his initial complaint was pain on the left side. He has been taking significant doses of hydromorphone to control his pain. He was referred to orthopedic surgeries. There was some delay in scheduling him for surgery because of problems and complications of his medical illness. He did have a stress echocardiogram, which showed no evidence of acute ischemia. Therefore, he was cleared by cardiology. His serum creatinine had been stable in the range of about 3.5 as previously noted. However, his blood sugars were poorly controlled. He is on an insulin pump. At the time of his initial measurement of a hemoglobin A1c, it was approximately 10.8%. However, his insulin pump was not functional for several weeks and that probably led to the abnormality. He was back on his insulin pump and his blood sugars appeared to be reasonably well controlled. Therefore, Dr. Lima accepted him for surgery. On 03/17, he underwent a right total hip replacement. His surgery appeared to be uncomplicated. He was aware of the significant risk because of his diabetes, history of coronary disease and chronic renal disease. Postoperatively, he had significant pain in his right leg. This was different than his right hip pain. The pain radiated down the lateral aspect of his right leg below the knee to his ankle. At least by me, it has been felt that his problem was sciatic rather than a direct complication or problem related to his hip. Since his surgery, he has gradually felt better and is now ambulatory with physical therapy. However, we have seen a slight rise in his serum creatinine. His creatinine has risen from 3.31 in December to 3.69 on 03/02, which was the last one done prior to his surgery. After surgery, it was 4.02 and has steadily risen to 4.74. I have spoken with the residents with regard to the interpretation of these numbers. Mr. Dalton has felt relatively well. His BUN is significantly elevated disproportionate to his creatinine consistent with prerenal changes. His blood pressure has been relatively low as well. He had been getting his metolazone and Lasix after his surgery. That was discontinued about 2 days ago by the resident staff. That change was appropriate and they did speak with me prior to that. However, his serum creatinine has climbed again. He has gotten some oral fluids as well as a bolus of IV fluids on one occasion. Still there has not been a significant change in his serum creatinine. Again, he is feeling relatively well at the current time and is ambulating with the help of physical therapy. The remainder of his past history not outlined above is outlined on his medical and surgical admission notes. OBJECTIVE: On exam when seen by me earlier today: VITAL SIGNS: His blood pressure was 116/69 with a pulse of 82 and regular. Respiratory rate is 16. His temperature is 36.7 degrees. His oxygen saturation is 99% on room air. SKIN: Shows a slightly sallow complexion. He has multiple tattoos. His skin turgor is essentially normal. He has a left below the knee amputation. I did not examine the stump site. He has a surgical incision over the right hip that appears clean and dry at the current time. LYMPHATICS: Show no palpable lymphadenopathy. HEAD: Grossly normal. EYES: Grossly normal. The ocular fundi were not examined. He has a history of changes of diabetic retinopathy as previously noted above. EARS, NOSE, MOUTH, AND THROAT: Unremarkable, although his oral mucous membranes are minimally dry. NECK: Supple. He has no jugular venous distention. I hear no carotid bruit and there is no thyromegaly. CHEST: Clear to auscultation. CARDIAC: Shows a regular rhythm. S1 and S2 are normal. He has a grade 2-3/6 systolic murmur at the base radiating toward the neck. ABDOMEN: Nontender. He has no organomegaly or mass. He has a palpable kidney transplant in the right lower quadrant of his abdomen. It is nontender. There is no bruit over the graft. EXTREMITIES: Show the left below the knee amputation. The stump was not examined. He has no edema of his right leg. There is no cyanosis or clubbing. The tip of his left fifth finger is surgically absent. NEUROLOGIC: Shows no lateralizing changes. He does have a loss of protective sensation in his right foot compared to the right knee. PERTINENT LABORATORY WORK: Done recently includes a CBC done yesterday on 03/21. His white count is 11,160 with a slight shift to the left with 83.9% neutrophils, 6.2% lymphocytes, 7.3% monocytes, 2.2% eosinophils and no basophils. His hemoglobin is 9.0. He did receive a 1 unit blood transfusion several days ago. His hematocrit today is 27.8. His platelet count is 133,000. Clinical chemistries from today show a sodium of 134 mmol/L, potassium 4.8 mmol/L, chloride is 104 mmol/L, and CO2 content 20 mmol/L. His BUN is 90 and his creatinine is 4.87. His blood sugars have varied in the course of the past 24 hours from a low of 151 to a high of 347, although today blood sugars have been certainly less than 300. His serum calcium is 8.6. ASSESSMENT: Mr. Dalton is a 43-year-old gentleman that has all of the complications of type 1 diabetes mellitus. That includes a history of retinopathy and a peripheral neuropathy as well as peripheral vascular disease, which contributed to the loss of his left leg below the knee. Additionally, he has a history of diabetic nephropathy, which led to end-stage renal disease in 2001 and a renal transplant from his mother at that time. His renal function is gradually declining. He has associated hypertension, but that has been reasonably well controlled of late. His diabetes has not been particularly well controlled, although it has improved with the use of his insulin pump. He is able to manage his blood sugars reasonably well. He was admitted and underwent a right total hip replacement because of severe pain associated with aseptic necrosis of his right hip. He has a history of coronary artery disease, but is asymptomatic and had a recent negative dobutamine stress echocardiogram. At the current time, the reason for this consultation was a rising BUN and creatinine. His BUN is disproportionately higher to his creatinine. I do think that there is a significant prerenal component. He was getting his diuretics and did not eat prior to his surgery and had a limited appetite for 2 days after his surgery. He continued to get Lasix and metolazone. His blood pressure is relatively low. He did have his medications held at least from the standpoint of his metolazone and furosemide. They were held starting yesterday. His BUN and creatinine are still somewhat higher. Quinapril has also been held. At the current time, I continue to believe that his problems are prerenal. I think that giving him some access to salt and water and holding his diuretics will lead to a turnaround in these renal function studies. He is eating better. I do not think any imaging studies are necessary at the current time nor do I think we need to make any other particular changes. I will continue to follow him with you.
[2019-03-22] MEDS: allopurinoL 300 MG TAB PO SCH (20:22)
[2019-03-22] MEDS: METOPROLOL SUCC 50MG EXT REL TAB PO SCH (20:23)
[2019-03-22] MEDS: SERTRALINE HCL 50 MG TABLET PO SCH (20:23)
[2019-03-22] MEDS: SIROLIMUS 0.5 MG TABLET PO SCH (20:23)
[2019-03-22] MEDS: SENNA 8.6 MG TAB PO SCH (20:24)
[2019-03-22] MEDS: PANTOprazole 40 MG TAB PO SCH (20:24)
[2019-03-22] MEDS: predniSONE 5 MG TAB PO SCH (20:24)
[2019-03-22] MEDS: ASPIRIN 81 MG ECTAB PO SCH (20:25)
[2019-03-22] MEDS: ATORVASTATIN 40 MG TAB PO SCH (20:25)
[2019-03-23] MEDS: HYDROmorphone HCL 2 MG TAB PO PRN ×4 (05:58→23:33)
[2019-03-23 06:31] LABS: BUN Creatinine Ratio 18.3 (10-20); Calcium 9.1 mg/dl (8.5-10.1); Creatinine Clr Calc Pharmacy 16.6 ml/min; Est GFR (African American) 15.2; Est GFR (Non-African American) 13.1; Potassium 4.4 mmol/L (3.5-5.1)
[2019-03-23] MEDS: HYDROmorphone INJ 1 MG/ML SYRINGE IV PRN (08:34)
[2019-03-23] MEDS: ASCORBIC ACID 500 MG TAB PO SCH ×2 (08:35→16:13)
[2019-03-23] MEDS: DOCUSATE SODIUM 100 MG CAP PO SCH ×2 (08:35→21:30)
[2019-03-23] MEDS: CLOPIDOGREL BISULFATE 75 MG TAB PO SCH (08:35)
[2019-03-23] MEDS: PREGABALIN 75 MG CAP PO SCH ×2 (08:35→21:33)
[2019-03-23] MEDS: FERROUS GLUCONATE 324 MG TAB PO SCH ×2 (08:35→16:12)
[2019-03-23] MEDS: TACROLIMUS 1 MG CAP PO SCH ×2 (08:35→21:28)
[2019-03-23] MEDS: MULTIVITAMIN TAB PO SCH (08:35)
[2019-03-23] MEDS: NovoLOG INSULIN PUMP SCH ×4 (08:40→21:28)
[2019-03-23] MEDS: DOXYCYCLINE HYCLATE 50 MG CAP PO SCH ×2 (08:51→21:32)
[2019-03-23] MEDS ORDERED: SODIUM CHLORIDE 0.9% 1000ML 1,000 ML IV ONE ×2 (10:20→11:06)
--- NOTE | 2019-03-23 10:54 | Nephrology Progress Note ---
Date of Service March 23, 2019 Assessment & Plan (1) Kidney transplant recipient: Present on Admission?: Yes (2) Chronic renal insufficiency: Present on Admission?: Yes (3) Acute renal failure: Mr. Dalton had a baseline creatinine prior to surgery in the range of about 3.5 to 4.0 mg/Jacinto. It has risen somewhat since that time and continues to slowly rise. The disproportionate increase in his BUN to creatinine certainly is strongly supportive of superimposed prerenal azotemia accounting for his acute on chronic renal insufficiency. His I&Os have not been measured during the course of the past few days. However, his blood pressure has been relatively low, at least until today, and his heart rate a little higher. Additionally, his skin turgor is normal and his oral mucous membranes are moist. He does not have jugular venous distention and his chest is clear. He has no cardiac gallops. He has no peripheral edema. I strongly suspect that his renal function will start to improve with his diuretics being held. Additionally, his MONA inhibitor (quinapril) has likewise improved. Apparently, he is to get a liter of fluid intravenously today. I have instructed the nurse to slow the rate to about 250 cc an hour rather than giving him a liter bolus in 1 hour. We can follow that tomorrow with another partial renal profile. I would also add a serum albumin to his laboratory work. No other intervention for now other than to follow him closely with his 1 L bolus of fluid to make sure he does not develop symptoms of volume overload. If he does, his furosemide can be reinstituted, at least as a single dose. I explained the situation and plan of care to Mr. Dalton. I will continue to follow him with you. Present on Admission?: No Subjective Mr. Dalton says that he is feeling fine. He has not had any chest pain or shortness of breath. He has no nausea or vomiting. His right leg discomfort has continued to improve. He has been ambulating on his own. He has no symptoms of uremia or volume overload. He says that he is eating well. His serum creatinine has continued to rise slowly. However, his urine output is quite good. He has not had diarrhea. He has not had his I&O measured for the past few days. Physical Exam Physical Exam: On physical examination, Mr. Dalton appears relatively well. However, he does have somewhat of a sallow complexion. His blood pressure is 155/91. His pulse 93 and regular. Respiratory rate is 16 with a pulse ox of 99% on room air. He is afebrile (36.8). His skin shows a slightly sallow complexion. He has scars from prior surgical procedures including a scar on his left arm from the creation of an AV fistula. He has a right lower quadrant scar from his kidney transplant. He has a left below the knee amputation. The stump was not examined as he was wearing his prosthesis. He has a scar over his right hip from his recent surgery. His skin turgor is normal. He has multiple tattoos. He has no palpable lymphadenopathy. His head is normal. Eyes are grossly normal. The ocular fundi were not examined. His vision appears to be quite good. Ears, nose, mouth and throat are unremarkable. His oral mucous membranes are moist. His neck is supple. He has no jugular venous distention, carotid bruit or thyromegaly. His chest is clear to auscultation. Cardiac exam shows a regular rhythm. S1 and S2 are normal. He has a grade 2/6 to 3/6 systolic ejection murmur at the base radiating toward the neck. No gallop sounds are heard. His abdomen is nontender. He has no organomegaly or mass. His renal graft is palpable in the right lower quadrant. I do not hear a bruit over the graft. Extremities show his left BK amputation. His right leg is not swollen. His neurologic exam shows a decrease in protective sensation of his right foot compared to his right knee. He has no lateralizing changes. Results & Data Vital Signs (Past 12 Hours) Vital Signs Temp Pulse Pulse Resp BP BP Pulse Ox 03/23/19 08:12 36.8 C 93 H 16 155/91 H 99 03/22/19 22:55 36.9 C 98 H 18 123/74 99 Laboratory Results Laboratory Results - last 24 hr 03/22/19 03/22/19 03/22/19 12:04 17:23 20:56 Sodium Potassium Chloride Carbon Dioxide Anion Gap BUN Creatinine Est Cr Clr Drug Dosing Est GFR ( Amer) Est GFR (Non-Af Amer) BUN/Creatinine Ratio Glucose POC Glucose 151 H 290 H 259 H Calcium Urine Sodium Urine Potassium Urine Chloride 03/23/19 03/23/19 03/23/19 05:13 08:13 10:35 Sodium 135 L Potassium 4.4 Chloride 103 Carbon Dioxide 23 Anion Gap 10.0 BUN 89 H Creatinine 4.99 H* Est Cr Clr Drug Dosing 16.6 Est GFR ( Amer) 15.2 Est GFR (Non-Af Amer) 13.1 BUN/Creatinine Ratio 18.3 Glucose 199 H POC Glucose 212 H Calcium 9.1 Urine Sodium Pending Urine Potassium Pending Urine Chloride Pending PG Care Time/CCT Total # of Minutes Spent Total Time Spent: 45 Total Time Spent with Patient: Total time spent is greater than 50% in coordination of care (as documented) at patient's floor/unit and/or counseling patient:
[2019-03-23 11:00] LABS: Urine Potassium 10.8 mmol/L
--- NOTE | 2019-03-23 15:17 | Progress Note ---
DATE: 03/23/2019 SUBJECTIVE: A 43-year-old gentleman postop day 6 from a right uncemented total hip arthroplasty done for avascular necrosis. He is making improvements from the pain standpoint. His creatinine continues to climb just slightly. No new complaints. OBJECTIVE: VITAL SIGNS: Temperature 36.8. Vital signs stable. GENERAL: Shows a pleasant, middle-aged male. He is lying in bed, looks pretty comfortable. EXTREMITIES: Examination of the right hip and leg reveals the leg to be well aligned. Dressing is clean, dry and intact. Thigh is soft and supple. He is neurologically intact. LABORATORY DATA: Creatinine is slightly elevated at 4.99 compared to yesterday. ASSESSMENT: A 43-year-old gentleman with multiple medical comorbidities with history of renal transplant, now 6 days out from a total hip replacement, doing reasonably well. His pain seems to be getting better. Medical issues are the things that is holding him back now, particularly his elevated creatinine. PLAN: 1. DVT prophylaxis including thigh-high TEDs, SCDs, and baby aspirin along with his Plavix. We will use that for DVT prophylaxis. 2. PT/OT. He can weightbear as tolerated. Right total hip protocol. 3. Pain control, doing okay with current pain regimen. 4. Medical management. He has been given some IV fluids to try and increase his hydration and improve his creatinine. We will follow along with this. 5. Disposition: He is orthopedically okay for discharge any time medically stable. We are waiting for his renal function to clearly stabilize. We will again check his renal function tomorrow.
--- NOTE | 2019-03-23 17:41 | Billing Data ---
Date of Service March 23, 2019 Coding Level of Care Code 63438 Subseq Hosp Care Lvl 3
--- NOTE | 2019-03-23 17:43 | Hospitalist Progress Note ---
Date of Service March 23, 2019 Assessment & Plan (1) Diabetes: Constantine Dalton is a 43 year old male with a past medical history significant for CAD s/p STEMI, DM I, LT BKA, DIANE, gout, status post renal transplant and on immunosuppressive therapy --diagnosed with aseptic bilateral hip necrosis, underwent right total hip replacement on 03/17/2019. Medicine service consulted for for general medical management. Bilateral avascular necrosis of hips, status post right total hip replacement 17 March -Pain control and care per orthopedics Coronary Artery Disease History of [place] with stent placement [place] [address] Hadley at [facility]. Continue his home Metoprolol, high intensity statin, and daily asa 81 -Holding home MONA-I No acute issues, continue clopidogrel End-stage renal disease S/p kidney transplant, CHERI Patient with history of diabetic nephropathy and kidney replacement in 2002. Follows Dr[address] Samson, who notes his serum creatinine has been somewhat higher than his baseline (2.5-3) preoperatively, but has been taking an MONA inhibitor, and a Lasix and metolazone for blood pressure control--he also noted his BUN is disproportionately elevated, which it continues to do, which may indicate that his renal function is better than it appears. -He continues to have no symptoms of uremia or volume overload here in the hospital. Encouraging p.o. fluids Gave 1 more liter of fluid today -HOLDing Lasix starting 21 March. HOLDing metolazone and MONA I starting . Continuing tacrolimus, sirolimus and prednisone Nephrology consulted believe this is pre renal and will likely improve with flui d creatinine continues to rise though slowly today to 4.99 Will check PRP urine creatinine and albumin in morning DMI Has been under tighter control since starting continuous glucose monitor and insulin pump last A1c 7. Pharmacy consulted for glycemic management No acute issues, patient will continue to use his home insulin pump Acute blood loss anemia in perioperative period, history of chronic normocytic anemia Hb 8.7 initially postop, baseline hemoglobin between 9 and 10. Received PRBCs given CAD. Has always remained hemodynamically stable. Resolved. Full code F/E/N: DM I diet DVT PPx: ASA and clopidogrel Dispo: Awaiting SNF placement for rehab (2) HTN (hypertension): (3) End-stage renal failure with renal transplant: (4) Avascular necrosis of bone of right hip: (5) Depression: (6) Gastroesophageal reflux: (7) Dyslipidemia: (8) Diabetic peripheral neuropathy: (9) S/P BKA (below knee amputation) unilateral: Supervising Physician Co-Signing Physician Notes I personally examined the patient and verified all landin points of history and exam, discussed case, and agree with decision making with Dr Walsh. feeling ok but creathine up vitals noted nad heent nc at mmm breathing unlabored no accessory muscles good effort. skin shows no rashes no pallor or icterus. no focal neuro deficits CHERI on CKD / ESRD s/p transplant - likely volume related - fluid. await improvement before being able to look at rehab otherwise as above. Subjective Constantine Dalton is resting comfortably watching [employer] today. He continues to fell well. Pain is well controlled, no concerns other than being eager to begin rehabilitation. No other concerns on full review of systems. Review of Systems Review of Systems: All systems reviewed & are unremarkable except as noted in HPI & below Physical Exam Physical Exam: Constitutional: 43 year old man appearing stated age, resting comfortably in no apparent distress Eyes: Anicteric Sclerae, EOMMI bilaterally Respiratory: Chest expansion equal bilaterally, no increased work of breathing, breath sounds vesicular in all lung heaton Cardiovascular: Patient with grade 3 systolic murmur radiating to neck best heard at sternal border, regular rate regular rhythm GI: Abdomen soft, nontender, obese Skin: Dry clean no lesions MSK: BKA on LLE Results & Data Vital Signs (Past 12 Hours) Vital Signs Temp Pulse Pulse Resp BP BP Pulse Ox 03/23/19 16:45 92 H 158/77 H 03/23/19 15:15 36.8 C 92 H 17 167/98 H 99 03/23/19 12:52 154/84 H 03/23/19 08:12 36.8 C 93 H 16 155/91 H 99 Resident Activity Tracking Resident Involvement: Resident Care Provided Care Provided: Adult Hospital Medicine (1) Diabetes Chronic kidney disease stage: stage 4 (severe) Diabetes mellitus complication detail: with chronic kidney disease Diabetes mellitus complication status: with kidney complications Diabetes mellitus type: type 1 Qualified Code(s): E10.22 - Type 1 diabetes mellitus with diabetic chronic kidney disease; N18.4 - Chronic kidney disease, stage 4 (severe) (2) HTN (hypertension) Hypertension type: renovascular hypertension Qualified Code(s): I15.0 - Renovascular hypertension
[2019-03-23] MEDS: SERTRALINE HCL 50 MG TABLET PO SCH (21:27)
[2019-03-23] MEDS: ASPIRIN 81 MG ECTAB PO SCH (21:28)
[2019-03-23] MEDS: PANTOprazole 40 MG TAB PO SCH (21:28)
[2019-03-23] MEDS: allopurinoL 300 MG TAB PO SCH (21:29)
[2019-03-23] MEDS: ATORVASTATIN 40 MG TAB PO SCH (21:29)
[2019-03-23] MEDS: SIROLIMUS 0.5 MG TABLET PO SCH (21:29)
[2019-03-23] MEDS: SENNA 8.6 MG TAB PO SCH (21:29)
[2019-03-23] MEDS: predniSONE 5 MG TAB PO SCH (21:30)
[2019-03-23] MEDS: METOPROLOL SUCC 50MG EXT REL TAB PO SCH (21:30)
[2019-03-24 07:09] LABS: Albumin Level 2.1 gm/dl (3.4-5.0); BUN Creatinine Ratio 19.2 (10-20); Calcium 8.9 mg/dl (8.5-10.1); Creatinine Clr Calc Pharmacy 18.7 ml/min; Est GFR (African American) 17.5; Est GFR (Non-African American) 15.1; Potassium 4.8 mmol/L (3.5-5.1)
[2019-03-24] MEDS: NovoLOG INSULIN PUMP SCH ×4 (08:56→20:51)
[2019-03-24] MEDS: CLOPIDOGREL BISULFATE 75 MG TAB PO SCH (08:57)
[2019-03-24] MEDS: DOCUSATE SODIUM 100 MG CAP PO SCH ×2 (08:57→20:52)
[2019-03-24] MEDS: PREGABALIN 75 MG CAP PO SCH ×2 (08:57→21:00)
[2019-03-24] MEDS: FERROUS GLUCONATE 324 MG TAB PO SCH ×2 (08:57→17:10)
[2019-03-24] MEDS: TACROLIMUS 1 MG CAP PO SCH ×2 (08:57→20:52)
[2019-03-24] MEDS: ASCORBIC ACID 500 MG TAB PO SCH ×2 (08:57→17:10)
[2019-03-24] MEDS: MULTIVITAMIN TAB PO SCH (08:57)
[2019-03-24] MEDS: DOXYCYCLINE HYCLATE 50 MG CAP PO SCH ×2 (08:57→20:54)
--- NOTE | 2019-03-24 10:12 | Nephrology Progress Note ---
Date of Service March 24, 2019 Assessment & Plan (1) Kidney transplant recipient: (2) Chronic renal insufficiency: (3) Acute renal failure: Mr. Dalton appears to be doing quite well. Yesterday, he did receive 1 L of IV fluids. He is now minimally edematous particularly noticeable in his right leg. He also has a few crackles at the left base. An atrial gallop is now present. His blood pressure is somewhat elevated. His BUN is down slightly and his creatinine is down to 4.44 mg/Jacinto. It is, obviously trending in the right direction. His low serum albumin, in my opinion, is a significant contributing factor to his prerenal azotemia by decreasing his intravascular plasma volume. Nonetheless, this appears to be improving now and I would expect continuing improvement in a gradual return to his baseline serum creatinine of under 4 mg/dL. He is not currently experiencing any symptoms. I would not force any additional fluids on him but would simply continue him on his low- sodium diabetes diet. We would need to watch for the development of further issues with volume overload including increasing edema and possible shortness of breath. If that develops, diuretics could be used in the short-term. He is expecting to go to [facility]. I see no reason, from a renal standpoint, that that cannot be done. Would not discharge him on diuretics at the current time. I would, however, resume his quinapril. I can see him in the office next March 30. He can be scheduled directly with me or with my nurse practitioner, Korina Lima. No other current recommendations. If he remains in the hospital I will continue to follow him. Subjective Mr. Dalton says that he is continuing to feel well. He had 1 L of IV fluid yesterday. With that, he did not experience any significant increase in shortness of breath and has not noted any swelling of his right leg. He denies PND or orthopnea. Despite his history of coronary disease, he is not having any problems with chest pain. He experiences no symptoms of uremia or volume overload. His appetite is good. He is trying to do more in terms of ambulation. He is hoping to be able to go to [facility] later today for continuation of his rehabilitation and reg ular physical therapy. He remains off his MONA inhibitor and diuretics. Physical Exam Physical Exam: On physical examination at the current time, Mr. Dalton appears relatively well but still somewhat chronically ill. He has a left below the knee amputation and was wearing his prosthesis. He was comfortable lying in bed with his head at about 30 degrees. His blood pressure this morning is 165/95. His pulse is 93 and regular respiratory rate 18 with an oxygen saturation of 97% on room air. He is afebrile (36.6 C). His skin shows normal skin turgor. He has no rash or infiltrative skin disease. The scar over his right hip appears to be healing nicely. He has other scars from prior surgical procedures incl uding a scar on his left arm from his AV fistula and a right lower quadrant scar from his kidney transplant. I did not examine the scar over his left below the knee stump. He has multiple tattoos and a few scattered ecchymoses particularly on his right arm. He has no palpable lymphadenopathy. His head is normal. Eyes are grossly normal. The ocular fundi were not examined. Ears, nose, mouth and throat are unremarkable. His oral mucous membranes are moist. His neck is supple. I see no jugular venous distention. He has no carotid bruit and no thyromegaly. His chest shows a few crackles at the left base. It is otherwise clear to auscultation. Cardiac exam shows a regular rhythm. S1 and S2 were normal. He has an atrial gallop. He has a grade 2/6 to 3/6 systolic ejection murmur at the base radiating toward the neck. It is also heard at the upper left sternal border. His abdomen is nontender. He has no obvious organomegaly or mass. His renal transplant is palpable in the right lower quadrant. I hear no bruit over the graft. Extremities show trace to 1+ edema of his right lower extremity. He has no edema of his left thigh. He was wearing his prosthesis. The fifth finger of his left hand is partially amputated. His neurologic exam shows a decrease in protective sensation of his right leg. He has no lateralizing neurologic changes. Results & Data Vital Signs (Past 12 Hours) Vital Signs Temp Pulse Pulse Pulse Resp BP BP 03/24/19 09:46 36.6 C 82 93 H 93 H 18 165/95 H 03/24/19 09:43 165/95 H 03/24/19 07:15 36.6 C 93 H 18 177/90 H 03/23/19 23:40 36.7 C 96 H 16 158/89 H Pulse Ox 03/24/19 09:46 97 03/24/19 09:43 03/24/19 07:15 97 03/23/19 23:40 98 Laboratory Results Laboratory Results - last 24 hr 03/23/19 03/23/19 03/23/19 05:13 10:35 12:08 Sodium Potassium Chloride Carbon Dioxide Anion Gap BUN Creatinine Est Cr Clr Drug Dosing Est GFR ( Amer) Est GFR (Non-Af Amer) BUN/Creatinine Ratio Glucose POC Glucose 142 H Calcium Albumin 2.2 L Ur Random Creatinine Urine Sodium 28 Urine Potassium 10.8 Urine Chloride 17 03/23/19 03/23/19 03/23/19 17:17 20:59 23:29 Sodium Potassium Chloride Carbon Dioxide Anion Gap BUN Creatinine Est Cr Clr Drug Dosing Est GFR ( Amer) Est GFR (Non-Af Amer) BUN/Creatinine Ratio Glucose POC Glucose 137 H 193 H Calcium Albumin Ur Random Creatinine 136.0 Urine Sodium Urine Potassium Urine Chloride 03/24/19 03/24/19 06:14 08:16 Sodium 136 Potassium 4.8 Chloride 106 Carbon Dioxide 23 Anion Gap 7.0 BUN 85 H Creatinine 4.44 H D Est Cr Clr Drug Dosing 18.7 Est GFR ( Amer) 17.5 Est GFR (Non-Af Amer) 15.1 BUN/Creatinine Ratio 19.2 Glucose 156 H POC Glucose 161 H Calcium 8.9 Albumin 2.1 L Ur Random Creatinine Urine Sodium Urine Potassium Urine Chloride PG Care Time/CCT Total # of Minutes Spent Total Time Spent with Patient: Total time spent is greater than 50% in coordination of care (as documented) at patient's floor/unit and/or counseling patient:
--- NOTE | 2019-03-24 11:08 | Progress Note ---
DATE: 03/24/2019 SUBJECTIVE: A 43-year-old gentleman now 1 week out from a right uncemented total hip arthroplasty done for AVN. He continues to make daily improvements. Pain seems to be improving slowly. No new complaints. No chest pain or shortness of breath. Not feeling dizzy or lightheaded. OBJECTIVE: VITAL SIGNS: Temperature 36.6. Vital signs stable. GENERAL: Shows a pleasant, middle-aged male. He is lying in bed, looks pretty comfortable. EXTREMITIES: Examination of the right leg reveals the leg to be well aligned. Dressing is clean, dry and intact. His thigh is soft and supple. He can dorsiflex and plantarflex his foot appropriately. LABORATORY DATA: His creatinine improved at 4.44 and close to baseline. ASSESSMENT: A 43-year-old gentleman with multiple medical comorbidities, 1 week out from a right uncemented total hip arthroplasty, doing reasonably well. His pain is getting better. His renal function is improving. PLAN: We are going to continue to encourage him to increase his p.o. intake of fluids. Continue current pain control. DVT prophylaxis including thigh-high TEDs, SCDs, and he is on a baby aspirin a day along with Plavix. He is hoping to be discharged to rehab and hopefully today if we can get approval and acceptance.
[2019-03-24] MEDS: HYDROmorphone HCL 2 MG TAB PO PRN (15:53)
--- NOTE | 2019-03-24 16:34 | Hospitalist Progress Note ---
Date of Service March 24, 2019 Assessment & Plan (1) Diabetes: Constantine Dalton is a 43 year old male with a past medical history significant for CAD s/p STEMI, DM I, LT BKA, DIANE, gout, status post renal transplant and on immunosuppressive therapy --diagnosed with aseptic bilateral hip necrosis, underwent right total hip replacement on 03/17/2019. Medicine service consulted for for general medical management. Bilateral avascular necrosis of hips, status post right total hip replacement 17 March -Pain control and care per orthopedics Coronary Artery Disease History of [place] with stent placement in [address] Hadley at [facility] Continue his home Metoprolol, high intensity statin, and daily asa 81 -Holding home MONA-I No acute issues, continue clopidogrel End-stage renal disease S/p kidney transplant, CHERI Patient with history of diabetic nephropathy and kidney replacement in 2002. Follow[address] Samson, who notes his serum creatinine has been somewhat higher than his baseline (2.5-3) preoperatively, but has been taking an MONA inhibitor, and a Lasix and metolazone for blood pressure control--he also noted his BUN is disproportionately elevated, which it continues to do, which may indicate that his renal function is better than it appears. -He continues to have no symptoms of uremia or volume overload here in the hospital. Encouraging p.o. fluids Gave 1 more liter of fluid today -HOLDing Lasix starting 21 March. HOLDing metolazone and MONA I starting . Continuing tacrolimus, sirolimus and prednisone Nephrology consulted believe this is pre renal and will likely improve with fluid Creatinine improved to 4.44 from 4.99 with IV fluids Unfortunately patient also became more edematous. Will have to balance fluids carefully as edema could inhibit healing and in the past has reopened wound on BKA stump DMI Has been under tighter control since starting continuous glucose monitor and insulin pump last A1c 7. Pharmacy consulted for glycemic management No acute issues, patient will continue to use his home insulin pump Acute blood loss anemia in perioperative period, history of chronic normocytic anemia Hb 8.7 initially postop, baseline hemoglobin between 9 and 10. Received PRBCs given CAD. Has always remained hemodynamically stable. Resolved. Full code F/E/N: DM I diet DVT PPx: ASA and clopidogrel Dispo: Awaiting rehab placement (2) HTN (hypertension): (3) End-stage renal failure with renal transplant: (4) Avascular necrosis of bone of right hip: (5) Depression: (6) Gastroesophageal reflux: (7) Dyslipidemia: (8) Diabetic peripheral neuropathy: (9) S/P BKA (below knee amputation) unilateral: Supervising Physician Co-Signing Physician Notes I personally examined the patient and verified all landin points of history and exam, discussed case, and agree with decision making with Dr Walsh. feeling ok - just waiting on approval for rehab. a little bit of peripheral edema. n other complaints. d/w nephrology. vitals noted nad heent nc at mmm breathing unlabored no accessory muscles good effort. skin shows no rashes no pallor or icterus. no focal neuro deficits CHERI on CKD / ESRD s/p transplant - improving. likely was all volume related. follow closely off diuretic. now that creatinine is improving, appearing stable for rehab with close ongoing f/u otherwise as above. Subjective Mr. Dalton resting comfortably, ready to get to rehab, no acute concerns Review of Systems Review of Systems: All systems reviewed & are unremarkable except as noted in HPI & below Physical Exam Physical Exam: Constitutional: 43 year old man appearing stated age, resting comfortably in no apparent distress Eyes: Anicteric Sclerae, EOMMI bilaterally Respiratory: Chest expansion equal bilaterally, no increased work of breathing, breath sounds vesicular in all lung heaton Cardiovascular: Patient with grade 3 systolic murmur radiating to neck best heard at sternal border, regular rate regular rhythm GI: Abdomen soft, nontender, obese Skin: Dry clean no lesions MSK: BKA on LLE Results & Data Vital Signs (Past 12 Hours) Vital Signs Temp Pulse Pulse Pulse Pulse Resp BP 03/24/19 15:34 179/91 H 03/24/19 15:33 36.9 C 94 H 16 03/24/19 09:46 36.6 C 82 93 H 93 H 18 165/95 H 03/24/19 09:43 165/95 H 03/24/19 07:15 36.6 C 93 H 18 BP Pulse Ox 03/24/19 15:34 03/24/19 15:33 178/97 H 98 03/24/19 09:46 97 03/24/19 09:43 03/24/19 07:15 177/90 H 97 Resident Activity Tracking Resident Involvement: Resident Care Provided Care Provided: Adult Hospital Medicine (1) Diabetes Chronic kidney disease stage: stage 4 (severe) Diabetes mellitus complication detail: with chronic kidney disease Diabetes mellitus complication status: with kidney complications Diabetes mellitus type: type 1 Qualified Code(s): E10.22 - Type 1 diabetes mellitus with diabetic chronic kidney disease; N18.4 - Chronic kidney disease, stage 4 (severe) (2) HTN (hypertension) Hypertension type: renovascular hypertension Qualified Code(s): I15.0 - Renovascular hypertension
--- NOTE | 2019-03-24 17:56 | Billing Data ---
Date of Service March 24, 2019 Coding Level of Care Code 45689 Subseq Hosp Care Lvl 2
[2019-03-24] MEDS: allopurinoL 300 MG TAB PO SCH (20:52)
[2019-03-24] MEDS: ATORVASTATIN 40 MG TAB PO SCH (20:52)
[2019-03-24] MEDS: ASPIRIN 81 MG ECTAB PO SCH (20:53)
[2019-03-24] MEDS: predniSONE 5 MG TAB PO SCH (20:53)
[2019-03-24] MEDS: SIROLIMUS 0.5 MG TABLET PO SCH (20:53)
[2019-03-24] MEDS: PANTOprazole 40 MG TAB PO SCH (20:53)
[2019-03-24] MEDS: METOPROLOL SUCC 50MG EXT REL TAB PO SCH (20:54)
[2019-03-24] MEDS: SERTRALINE HCL 50 MG TABLET PO SCH (20:54)
[2019-03-24] MEDS: SENNA 8.6 MG TAB PO SCH (20:54)
[2019-03-25 06:25] LABS: BUN Creatinine Ratio 20.6 (10-20); Calcium 8.8 mg/dl (8.5-10.1); Creatinine Clr Calc Pharmacy 20.2 ml/min; Est GFR (African American) 19.3; Est GFR (Non-African American) 16.7
[2019-03-25] MEDS: MULTIVITAMIN TAB PO SCH (09:18)
[2019-03-25] MEDS: CLOPIDOGREL BISULFATE 75 MG TAB PO SCH (09:18)
[2019-03-25] MEDS: DOCUSATE SODIUM 100 MG CAP PO SCH (09:18)
[2019-03-25] MEDS: PREGABALIN 75 MG CAP PO SCH (09:18)
[2019-03-25] MEDS: FERROUS GLUCONATE 324 MG TAB PO SCH (09:18)
[2019-03-25] MEDS: DOXYCYCLINE HYCLATE 50 MG CAP PO SCH (09:18)
[2019-03-25] MEDS: ASCORBIC ACID 500 MG TAB PO SCH (09:18)
[2019-03-25] MEDS: TACROLIMUS 1 MG CAP PO SCH (09:18)
[2019-03-25] MEDS: NovoLOG INSULIN PUMP SCH (09:19)
--- NOTE | 2019-03-25 09:56 | Progress Note ---
DATE: 03/25/2019 SUBJECTIVE: A 43-year-old gentleman now 8 days out from a right total hip replacement done for avascular necrosis. We then following his renal function tests. Finally, returning back to baseline. No new complaints. Pain is improving. OBJECTIVE: VITAL SIGNS: Temperature is 36.8. Vital signs stable. Mild to moderate hypertension intermittently. EXTREMITIES: Examination of the hip reveals patient is lying in bed, looks comfortable. Examination of the right hip reveals the wound to be clean, dry and intact. No drainage. Thigh is soft and supple. Hip is located. He is neurologically intact. LABORATORY DATA: Creatinine improved at 4.10. ASSESSMENT: A 43-year-old gentleman with multiple medical comorbidities, now 8 days out from a right total hip replacement. Making gradual improvements. Kidney function is returning to the baseline. His pain seems to be improving. PLAN: 1. DVT prophylaxis including thigh-high TEDs, SCDs, and baby aspirin once a day along with his Plavix. 2. PT/OT. He can fully weightbear as tolerated. Right total hip protocol. 3. Pain control, doing okay with current pain regimen. 4. Disposition: He is orthopedically okay for discharge any time medically stable. We are just waiting for a bed at rehabilitation.
[2019-03-25] MEDS: HYDROmorphone HCL 2 MG TAB PO PRN (10:08)
--- NOTE | 2019-03-25 10:53 | Nephrology Progress Note ---
Date of Service March 25, 2019 Assessment & Plan (1) Type 1 diabetes mellitus: (2) Kidney transplant recipient: (3) Chronic renal insufficiency: (4) Acute renal failure: Mr. Dalton appears to be doing relatively well. His serum creatinine has fallen with intravenous fluids. However, he has developed swelling involving his right leg. I am sure this is due to a great extent to his very low serum albumin which was 2.1 g/dL when last measured. His blood pressure is somewhat elevated this morning. Nonetheless, I would avoid using diuretics, at least for now. He can remain on his other antihypertensives. He should be able to go to [facility]. Hopefully he will get insurance approval today. Assuming he does, I would still plan on seeing him on March 29 and can recheck his laboratory work at that time as well. His nutrition, particularly of protein intake of high biologic value protein should be emphasized. No other recommendations for now. Diabetic management will continue as his baseline using his insulin pump. (5) HTN (hypertension): (6) Diabetes: Subjective Mr. Dalton says that he is feeling generally well. He had a somewhat more intense physical therapy program this morning. He says that his right leg is slightly sore and he notes that it is somewhat swollen. He denies having any shortness of breath. He has no nausea. He has no symptoms of uremia or other symptoms of volume overload other than his swollen leg. He is getting his medications as planned. He says that his appetite is good. We are waiting for apparent insurance approval to have him go to [facility]. I think that that is an appropriate decision particularly given the close medical following that he will need to monitor his renal function as well as dealing with his gait given his left leg prosthesis and recent right hip surgery. He also has aseptic necrosis of the left hip. He does not have any back pain at the current time and is not really complaining of sciatic pain as he had several days ago. He remains off diuretics. He says that his urine output is reasonably good. Physical Exam Physical Exam: On physical examination, Mr. Dalton appears as a chronically ill young man of about his stated age of 43 or perhaps a bit younger. His blood pressure today is 170/92 in the semi-Hernandez position. His pulse is 104 and regular. Respiratory rate is 18 with a pulse ox of 97% on room air. He is afebrile (36.8 C). His skin shows a sallow complexion. He has multiple scars from prior surgical procedures. He has a few scattered ecchymoses and multiple tattoos. His skin turgor is normal. He has no palpable lymphadenopathy. His head is normal. Eyes are grossly normal. The ocular fundi were not examined. Ears, nose, mouth and throat are all unremarkable. His oral mucous membranes are moist. His neck is supple. He has no obvious jugular venous distention. I hear no carotid bruit. There is no thyromegaly. His chest is clear to auscultation. I hear no wheezes, rales or rhonchi. Cardiac exam shows a regular rhythm. S1 and S2 are normal. He has a grade 2/6 to 3/6 systolic ejection murmur at the base radiating toward the neck. No gallop sounds are heard. He has no friction rubs. His abdomen is nontender. He has no organomegaly or mass. His renal transplant is palpable in the right lower quadrant. I do not hear a bruit over the graft. He has no other abdominal bruits. He has no CVA tenderness or tenderness over the dorsal spine. Extremities show the left BK amputation. The stump was not examined. He has a scar over the right hip from recent surgery. That appears to be clean and dry. He has 1-2+ edema of his right leg. I do not notice any obvious edema involving his left thigh. His neurologic exam shows a decrease in protective sensation in his right foot. There are no obvious lateralizing changes otherwise. Results & Data Vital Signs (Past 12 Hours) Vital Signs Temp Pulse Pulse Resp BP BP Pulse Ox 03/25/19 07:10 36.8 C 104 H 18 170/92 H 97 03/24/19 23:03 36.8 C 92 H 16 171/90 H 175/91 H 98 Laboratory Results Laboratory Results - last 24 hr 03/24/19 03/24/19 03/24/19 12:15 17:07 20:44 Sodium Potassium Chloride Carbon Dioxide Anion Gap BUN Creatinine Est Cr Clr Drug Dosing Est GFR ( Amer) Est GFR (Non-Af Amer) BUN/Creatinine Ratio Glucose POC Glucose 138 H 144 H 150 H Calcium 03/25/19 03/25/19 05:34 08:24 Sodium 137 Potassium 5.0 Chloride 109 H Carbon Dioxide 21 Anion Gap 7.0 BUN 84 H Creatinine 4.10 H D Est Cr Clr Drug Dosing 20.2 Est GFR ( Amer) 19.3 Est GFR (Non-Af Amer) 16.7 BUN/Creatinine Ratio 20.6 H Glucose 119 H POC Glucose 117 H Calcium 8.8 PG Care Time/CCT Total # of Minutes Spent Total Time Spent: 35 Total Time Spent with Patient: Total time spent is greater than 50% in coordination of care (as documented) at patient's floor/unit and/or counseling patient: (1) Diabetes Chronic kidney disease stage: stage 4 (severe) Diabetes mellitus complication detail: with chronic kidney disease Diabetes mellitus complication status: with kidney complications Diabetes mellitus type: type 1 Qualified Code(s): E10.22 - Type 1 diabetes mellitus with diabetic chronic kidney disease; N18.4 - Chronic kidney disease, stage 4 (severe) (2) HTN (hypertension) Hypertension type: renovascular hypertension Qualified Code(s): I15.0 - Renovascular hypertension
--- NOTE | 2019-03-25 16:54 | Billing Data ---
Date of Service March 22, 2019 Coding Level of Care Code 48078 Subseq Hosp Care Lvl 2
--- NOTE | 2019-03-25 16:54 | Billing Data ---
Date of Service March 25, 2019 Coding Level of Care Code 14700 Subseq Hosp Care Lvl 2
--- NOTE | 2019-03-25 20:46 | Hospitalist Progress Note ---
Date of Service March 25, 2019 Assessment & Plan (1) HTN (hypertension): Medicine service consulted for patient's renal failure and complicated past medical history Constantine Dalton is a 43 year old male with a past medical history significant for CAD s/p STEMI, DM I, LT BKA, DIANE, gout, status post renal transplant and on immunosuppressive therapy --diagnosed with aseptic bilateral hip necrosis, underwent right total hip replacement on 03/17/2019. Medicine service consulted for general medical management. Coronary Artery Disease History of NM with stent placement [place] [address] Hadley at [facility] Continue his home Metoprolol, high intensity statin, and daily asa 81 No acute issues, continue clopidogrel - resume home mona-I End-stage renal disease S/p kidney transplant, CH[facility]I Patient with history of diabetic nephropathy and kidney replacement in [address]. [address] Samson, who notes his serum creatinine has been somewhat higher than his baseline (2.5-3) preoperatively, but has been taking an MONA inhibitor, and a Lasix and metolazone for blood pressure control--he also noted his BUN is disproportionately elevated, which it continues to do, which may indicate that his renal function is better than it appears. -He continues to have no symptoms of uremia or volume overload here in the hospital. Creatinine improved from 4.99 to 4.44 with IV fluids and again down to 4.1 Unfortunately patient also became more edematous. Will have to balance fluids carefully as edema could inhibit healing and in the past has reopened wound on BKA stump Would try to avoid further IV fluids and hold diuresis. Recommend just allowing adequate oral intake and monitor renal function closely DMI Has been under tighter control since starting continuous glucose monitor and insulin pump last A1c around 7 No acute issues, patient will continue to use his home insulin pump Lower Limb Edema Likely secondary to combination of venous stasis and hypoalbuminemia last albumin 2.1 Will need to encourage good, higher protein nutrition. Acute blood loss anemia in perioperative period, history of chronic normocytic anemia Hb 8.7 initially postop, baseline hemoglobin between 9 and 10. Received PRBCs given CAD. Has always remained hemodynamically stable. Resolved. Outpatient Follow up Dr. Samson FridayMarch 30 Full code F/E/N: DM I diet DVT PPx: ASA and clopidogrel (2) End-stage renal failure with renal transplant: (3) Avascular necrosis of bone of right hip: (4) Depression: (5) Gastroesophageal reflux: (6) Dyslipidemia: (7) Diabetic peripheral neuropathy: (8) S/P BKA (below knee amputation) unilateral: (9) Diabetes: Supervising Physician Co-Signing Physician Notes I personally examined the patient and verified all landin points of history and exam, discussed case, and agree with decision making with Dr Walsh. feeling ok and ready for rehab. approved! vitals noted nad heent nc at mmm breathing unlabored no accessory muscles good effort. skin shows no rashes no pallor or icterus. no focal neuro deficits CHERI on CKD / ESRD s/p transplant - likely volume related CHERI - improved with fluid. stable for rehab, but will need ongoing outpt f/u and BMPs to trend. otherwise as above. Subjective Mr. Dalton doing well today, ecstatic he can finally get out of the hospital. He has no questions or concerns though does note that his legs have gotten more swollen. Lower limb on right in particular. though remaining portion of left leg also edematous. compression stockin in place Review of Systems Review of Systems: All systems reviewed & are unremarkable except as noted in HPI & below Physical Exam Physical Exam: Constitutional: 43 year old man appearing stated age, resting comfortably in no apparent distress Eyes: Anicteric Sclerae, EOMMI bilaterally Respiratory: Chest expansion equal bilaterally, no increased work of breathing, breath sounds vesicular in all lung heaton Cardiovascular: Patient with grade 3 systolic murmur radiating to neck best heard at sternal border, regular rate regular rhythm GI: Abdomen soft, nontender, obese Skin: Dry clean no lesions MSK: BKA on LLE Results & Data Vital Signs (Past 12 Hours) Vital Signs Temp Pulse Pulse Pulse Pulse Resp BP 03/25/19 11:25 36.8 C 82 92 H 104 H 93 H 18 170/92 H BP Pulse Ox 03/25/19 11:25 175/91 H 97 Resident Activity Tracking Resident Involvement: Resident Care Provided Care Provided: Adult Hospital Medicine (1) Diabetes Chronic kidney disease stage: stage 4 (severe) Diabetes mellitus complication detail: with chronic kidney disease Diabetes mellitus complication status: with kidney complications Diabetes mellitus type: type 1 Qualified Code(s): E10.22 - Type 1 diabetes mellitus with diabetic chronic kidney disease; N18.4 - Chronic kidney disease, stage 4 (severe) (2) HTN (hypertension) Hypertension type: renovascular hypertension Qualified Code(s): I15.0 - Renovascular hypertension
--- NOTE | 2019-03-26 16:28 | Discharge Summary ---
ADMITTING PHYSICIAN AND SURGEON: Dr. Bill Lima. ADMITTING DIAGNOSIS: Right hip avascular necrosis and degenerative joint disease. SURGERY PERFORMED: Right total hip arthroplasty. SECONDARY DIAGNOSES: Coronary artery disease with stent placement 3 years ago, diabetes, hypertension, history of kidney transplant, sleep apnea, gastroesophageal reflux disease, history of a left below-knee amputation. CONSULTS: Dr. Linares for postoperative medical management and Dr. Samson for worsening renal function. HISTORY AND PHYSICAL EXAMINATION: Well-documented in the patient's chart. HOSPITAL COURSE: The patient was admitted on 03/17/2019, underwent total hip arthroplasty, tolerated the procedure well. There were no complications. He was transferred to the PACU postoperatively and later to the orthopedic floor for further care. He was given Ancef for antibiotic prophylaxis, RENAE stockings, SCDs and aspirin for DVT prophylaxis. He is also on Plavix. His hemoglobin, hematocrit and vital signs were monitored throughout his hospital stay. He did develop some postoperative anemia and was transfused 1 unit of packed red blood cells. He had a baseline creatinine of about 3.5 to 4.0 preoperatively and did have a rise in this postoperatively as well. Dr. Samson then was consulted for worsening renal function. The patient continued to be followed by the hospitalist service as well as Dr. Samson throughout his hospital stay and his creatinine did improve to near baseline. He was initially having some significant pain postoperatively. Additional x-rays were obtained, which showed no acute injury or fractures. By postoperative day 8, he was tolerating a diabetic diet. Pain was reasonably controlled. His kidney function has been returned to his baseline. He was participating in physical therapy. On postop day 8, he was transferred to a rehab facility. He was given printed discharge instructions as well as new prescriptions for extra strength Tylenol, iron supplement, hydromorphone. Continue his home medications, continue physical therapy, weightbearing as tolerated, RENAE stockings, total hip precautions. Follow up in approximately 2 weeks postop or sooner if there are any problems or concerns.
== END 2019-03-25 13:07 | DRG 469 ==
LOC: ASU 08:44 → 3E 13:13

== ENCOUNTER 2019-03-29 14:10 | Inpatient (IN) ==
--- NOTE | 2019-03-29 14:56 | XRay Report ---
XR chest 1V portable CLINICAL HISTORY: SEPSIS COMPARISON STUDY: Chest radiograph November 27, 2018. FINDINGS: There are suspected trace bilateral pleural effusions. There is no pneumothorax. Moderate e nlargement of the cardiac silhouette is noted. This is increased when compared to prior exam. There i s interstitial thickening. Multiple bilateral airspace opacities are noted. IMPRESSION: 1. Interstitial thickening suggestive of interstitial pulmonary edema. 2. Bilateral airspace opacities which may reflect alveolar edema or superimposed pneumonia. Radiograp hic follow up to ensure resolution is recommended. 3. Suspected trace bilateral pleural effusions. 4. Moderate enlargement of the cardiac silhouette. ACT 112: Negative or not required by law. Electronically signed by: Carl Terry M.D. 03/29/2019 2:55 PM
[2019-03-29] MEDS ORDERED: CEFEPIME 2,000 MG/20 ML VIAL IV STA (14:58)
[2019-03-29] MEDS ORDERED: VANCOMYCIN CONSULT ACTIVE PRN ×2 (14:58→18:20)
[2019-03-29] MEDS ORDERED: VANCOMYCIN HCL 1,500 MG in SODIUM CHLORIDE 0.9% 500 ML IV ONE (14:58)
[2019-03-29 15:02] LABS: Basophils # (auto) 0.03 K/uL (0-0.2); Basophils % (auto) 0.3 %; Eosinophils # (auto) 0.31 K/uL (0-0.5); Eosinophils % (auto) 2.6 %; Hematocrit (blood only) 28.5 % (42-52); Immature Granulocytes # (auto) 0.09 K/uL (0.00-0.02); Immature Granulocytes % (auto) 0.8 %; Lymphocytes # (auto) 1.84 K/uL (1.2-3.4); Lymphocytes % (auto) 15.5 %; Mean Corpuscular Hemoglobin 26.8 pg (25-34); Mean Corpuscular Hgb Conc 31.6 g/dL (32-36); Mean Corpuscular Volume 84.8 fL (80-100); Mean Platelet Volume 11.5 fL (7.4-10.4); Monocytes # (auto) 1.38 K/uL (0.11-0.59); Monocytes % (auto) 11.6 %; Neutrophils # (auto) 8.22 K/uL (1.4-6.5); Neutrophils % (auto) 69.2 %; Nucleated RBC # (auto) 0.03 K/uL (0-0); Nucleated RBC % (auto) 0.2 %; Platelet Count 270 K/uL (130-400); RDW Coefficient of Variation 16.5 % (11.5-14.5); RDW Standard Deviation 50.8 fL (36.4-46.3); Red Blood Count 3.36 M/uL (4.7-6.1); White Blood Count 11.87 K/uL (4.8-10.8)
[2019-03-29] MEDS ORDERED: ACETAMINOPHEN 1,000 MG/100 ML VIAL IV STA (15:04)
[2019-03-29 15:10] LABS: Alanine Aminotransferase 17 U/L (12-78); Albumin Level 2.5 gm/dl (3.4-5.0); Aspartate Aminotransferase 25 U/L (15-37); BUN Creatinine Ratio 21.3 (10-20); Blood Urea Nitrogen 75 mg/dl (7-18); Calcium 9.2 mg/dl (8.5-10.1); Carbon Dioxide 23 mmol/L (21-32); Chloride 109 mmol/L (98-107); Est GFR (African American) 23.2; Glucose 68 mg/dl (70-99); Magnesium 2.3 mg/dl (1.8-2.4); Potassium 4.8 mmol/L (3.5-5.1); Sodium 139 mmol/L (136-145)
[2019-03-29 15:15] LABS: Albumin Globulin Ratio 0.5 (0.9-2); Alkaline Phosphatase 103 U/L (45-117); Bilirubin,Total 0.3 mg/dl (0.2-1); Globulin 4.7 gm/dl (2.5-4.0); NT Pro B Type Natriuretic Pept 22988 pg/ml (0-450); Total Protein 7.2 gm/dl (6.4-8.2); Troponin I < 0.015 ng/ml (0-0.045)
[2019-03-29] MEDS ORDERED: FUROSEMIDE 40 MG/4 ML VIAL IV STA (15:21)
[2019-03-29 15:33] LABS: INR 1.1 (0.9-1.1); Partial Thromboplastin Ratio 1.1; Prothrombin Time 10.8 Seconds (9.0-12.0)
[2019-03-29 15:35] LABS: Influenza A virus by PCR Neg for Influ A (Neg); Influenza B virus by PCR Neg for Influ B (Neg)
[2019-03-29 15:54] LABS: Appearance Urine Clear (Clear); Bacteria Urine Automated Negative (Negative); Bilirubin Urine Negative (Negative); Blood Urine Negative (Negative); Color Urine Yellow; Glucose Urine UA 1+ (Negative); Ketones Urine Negative (Negative); Leukocyte Esterase Urine Negative (Negative); Nitrite Urine Negative (Negative); Protein Urine 3+ (Negative); Specific Gravity Urine 1.021 (1.000-1.030); Urobilinogen Urine Negative (Negative)
[2019-03-29] MEDS ORDERED: ONDANSETRON INJ 2 MG/ML 2 ML VIAL IV PRN (18:20)
[2019-03-29] MEDS ORDERED: DEXTROSE 50% 50 ML SYRINGE IV PRN (18:20)
[2019-03-29] MEDS ORDERED: CARBOHYDRATES FOR HYPOGLYCEMIA PO PRN (18:20)
[2019-03-29] MEDS ORDERED: GLUCAGON FOR INJ 1 MG VIAL SQ PRN (18:20)
[2019-03-29] MEDS ORDERED: GLUCOSE 40% GEL 15 GM TUBE PO PRN (18:20)
[2019-03-29] MEDS ORDERED: GLUCOSE 10 TABS/TUBE PO PRN (18:20)
[2019-03-29] MEDS ORDERED: AZITHROMYCIN 500 MG in DEXTROSE 5% 250 ML IV SCH (18:20)
--- NOTE | 2019-03-29 18:38 | Emergency Department Note ---
Entered by Rohini Spann acting as a scribe for Jb Mireles History of Present Illness General Chief complaint: Shortness of Breath/Dyspnea Time Seen by Provider: 03/29/19 14:35 Source: patient History of Present Illness Provider complaint: shortness of breath Onset (ago): hour(s) (BELL TIER) Location: chest Maximum Pain Intensity: 7 Relieved By: + none Exacerbated By: + none Associated symptoms: + nausea/vomiting (+nausea, -vomiting); no chest pain The patient is a 43 year old male who presents to the Emergency Room with complaints of shortness of breath which started prior to arrival. Per EMS, the patient is post-op of his right hip replacement. They report that the patient is experiencing nausea. They report that the patient has a history of diabetes, DVT, and kidney transplant. They note that the patient is on Plavix and baby Aspirin daily. The patient denies any chest pain. The patient states that he has never worn oxygen in the past. He notes that he feels better with it on currently. He mentions that he has not been on dialysis since the transplant. Home Medications Home Medications Medication Instructions Recorded Confirmed Type acetone (urine) test #25 ea 10/05/18 02/22/19 History glucagon (human recombinant) 1 mg 1 mg IM .COMPLEX PRN 10/05/18 03/29/19 History solution for injection insulin aspart U-100 100 unit/mL 100 units SQ .COMPLEX ml 10/05/18 03/29/19 History subcutaneous solution insulin syringe-needle U-100 0.5 #10 ea 10/05/18 02/22/19 History mL 31 gauge x 5/16" lancets 33 gauge #100 ea 10/05/18 02/22/19 History metoprolol succinate 50 mg 50 mg PO HS #90 tab 10/05/18 03/29/19 History tablet,extended release 24 hr tacrolimus 1 mg capsule 3 mg PO BID cap 10/05/18 03/29/19 History pregabalin 75 mg capsule 75 mg PO BID #60 cap 10/12/18 03/29/19 Rx aspirin 81 mg PO HS 11/23/18 03/29/19 History Dexcom G6 Media Manager #1 ea NS 11/30/18 02/22/19 Rx Dexcom G6 Sensor #9 ea NS 11/30/18 02/22/19 Rx Dexcom G6 Transmitter #1 ea NS 11/30/18 02/22/19 Rx sirolimus 2 mg tablet 4 mg PO HS #180 tab 12/16/18 03/29/19 Rx blood sugar diagnostic #10 ea 12/22/18 02/22/19 Rx blood sugar diagnostic #100 ea 12/22/18 02/22/19 Rx 3-in-1 Commode #1 ea 02/22/19 02/22/19 Rx Wheeled Walker #1 ea 02/22/19 02/22/19 Rx Wheeled Walker #1 ea 02/22/19 02/22/19 Rx hydromorphone 2 mg tablet 2 mg PO Q4H PRN #90 tab 03/15/19 03/29/19 Rx allopurinol 300 mg tablet 300 mg PO HS #90 tab 03/16/19 03/29/19 Rx atorvastatin 80 mg tablet 80 mg PO HS #90 tab 03/16/19 03/29/19 Rx doxycycline hyclate 50 mg capsule 50 mg PO BID #180 cap 03/16/19 03/29/19 Rx prednisone 5 mg tablet 5 mg PO HS #90 tab 03/16/19 03/29/19 Rx sertraline 50 mg tablet 50 mg PO HS #90 tab 03/16/19 03/29/19 Rx acetaminophen [Tylenol Extra 1,000 mg PO TID 30 Days #180 tab 03/19/19 03/29/19 Rx Strength] ferrous gluconate 324 mg PO BIDM 30 Days #60 tab 03/19/19 03/29/19 Rx hydromorphone 2 - 4 mg PO Q4H PRN #40 tab 03/19/19 03/29/19 Rx amlodipine 2.5 mg PO ONCE 03/29/19 03/29/19 History clopidogrel [Plavix] 75 mg PO QAM 03/29/19 03/29/19 History docusate sodium [Colace] 100 mg PO BID 03/29/19 03/29/19 History pantoprazole 40 mg PO HS 03/29/19 03/29/19 History Allergies Allergy/AdvReac Type Severity Reaction Status Date / Time PORK INSULIN Allergy Unknown Hives Uncoded 03/29/19 14:58 Past Med/Surg History Medical History Anxiety (Chronic) CAD (coronary artery disease) Chronic renal insufficiency (Chronic) Deep vein thrombosis ARM (10 YEARS AGO) AT [facility] Depression (Chronic) Diabetes mellitus type 1 INSULIN PUMP Fistula LEFT ARM (NON FUNCTIONING) GERD (gastroesophageal reflux disease) Gout Hyperlipidemia Hypertension Mitral regurgitation MILD-MOD Myocardial Infarction 2016 Peripheral neuropathy Sensory problems with limbs (Chronic) Sleep apnea CPAP Surgical History H/O eye surgery LEFT/RT LASER SURGERY History of below knee amputation LEFT REVISION (5 TOTAL) History of cardiac cath 2016 - DC - [facility] - 2 STENTS - FOLLOWS W/ DR. 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 and A total of 10 systems reviewed and were otherwise negative Physical Exam Vital Signs Vital Signs - 24 hr 03/29/19 14:10 03/29/19 14:18 03/29/19 14:24 Temperature 37.8 C H Temperature Source Oral Pulse Rate 117 H 119 H 112 H Pulse Rate from SpO2 Sensor 119 H 112 H Pulse Rhythm Regular Pulse Strength Normal Respiratory Rate 35 H 26 H 30 H Respiratory Effort / Characteristics Spontaneous Labored Respiratory Depth Normal Respiratory Pattern Regular Blood Pressure 189/133 H 189/133 H Blood Pressure Mean 151 144 Pulse Oximetry 87 L 96 95 Oxygen Delivery Method Room Air Oxygen Flow Rate Sepsis Recent Fever Within 48 Hours Yes Sepsis New/Unexplained Change in Mental Status No Sepsis Action Taken by Nursing Physician Notified Oxygen Flow Rate - Titration Pulse Oximetry Post Tiitration 03/29/19 14:30 03/29/19 14:39 03/29/19 14:53 Temperature 38.5 C H Temperature Source Rectal Pulse Rate 109 H 112 H Pulse Rate from SpO2 Sensor 109 H 112 H Pulse Rhythm Pulse Strength Respiratory Rate 29 H 25 H Respiratory Effort / Characteristics Respiratory Depth Respiratory Pattern Blood Pressure 187/115 H Blood Pressure Mean 152 Pulse Oximetry 99 99 Oxygen Delivery Method Nasal Cannula Oxygen Flow Rate Sepsis Recent Fever Within 48 Hours Sepsis New/Unexplained Change in Mental Status Sepsis Action Taken by Nursing Oxygen Flow Rate - Titration 5 Pulse Oximetry Post Tiitration 91 03/29/19 14:54 03/29/19 15:00 03/29/19 15:01 Temperature Temperature Source Pulse Rate 108 H 108 H Pulse Rate from SpO2 Sensor 108 H 109 H Pulse Rhythm Pulse Strength Respiratory Rate 25 H 24 Respiratory Effort / Characteristics Respiratory Depth Respiratory Pattern Blood Pressure 184/111 H Blood Pressure Mean 128 Pulse Oximetry 96 99 99 Oxygen Delivery Method Nasal Cannula Oxygen Flow Rate 5 Sepsis Recent Fever Within 48 Hours Sepsis New/Unexplained Change in Mental Status Sepsis Action Taken by Nursing Oxygen Flow Rate - Titration Pulse Oximetry Post Tiitration 03/29/19 15:30 03/29/19 15:31 03/29/19 16:00 Temperature Temperature Source Pulse Rate 109 H 108 H 108 H Pulse Rate from SpO2 Sensor 111 H 109 H 108 H Pulse Rhythm Pulse Strength Respiratory Rate 25 H 27 H 23 Respiratory Effort / Characteristics Respiratory Depth Respiratory Pattern Blood Pressure 186/116 H 169/101 H Blood Pressure Mean 140 117 Pulse Oximetry 99 99 100 Oxygen Delivery Method Oxygen Flow Rate Sepsis Recent Fever Within 48 Hours Sepsis New/Unexplained Change in Mental Status Sepsis Action Taken by Nursing Oxygen Flow Rate - Titration Pulse Oximetry Post Tiitration 03/29/19 16:01 03/29/19 16:10 03/29/19 16:20 Temperature Temperature Source Pulse Rate 109 H 108 H 108 H Pulse Rate from SpO2 Sensor 109 H 110 H 108 H Pulse Rhythm Pulse Strength Respiratory Rate 28 H 20 21 Respiratory Effort / Characteristics Respiratory Depth Respiratory Pattern Blood Pressure Blood Pressure Mean Pulse Oximetry 100 99 100 Oxygen Delivery Method Room Air Oxygen Flow Rate Sepsis Recent Fever Within 48 Hours Sepsis New/Unexplained Change in Mental Status Sepsis Action Taken by Nursing Oxygen Flow Rate - Titration Pulse Oximetry Post Tiitration 03/29/19 16:27 03/29/19 16:30 03/29/19 16:31 Temperature 37.6 C H Temperature Source Oral Pulse Rate 105 H 104 H Pulse Rate from SpO2 Sensor 105 H 104 H Pulse Rhythm Pulse Strength Respiratory Rate 21 20 Respiratory Effort / Characteristics Respiratory Depth Respiratory Pattern Blood Pressure 155/86 H Blood Pressure Mean 115 Pulse Oximetry 100 100 Oxygen Delivery Method Oxygen Flow Rate Sepsis Recent Fever Within 48 Hours Sepsis New/Unexplained Change in Mental Status Sepsis Action Taken by Nursing Oxygen Flow Rate - Titration Pulse Oximetry Post Tiitration Physical Exam GENERAL:He is in acute distress and tachypnic. HENT: Exam performed. - Head: Normocephalic and atraumatic. - Right Ear: External ear normal. No mastoid tenderness. - Left Ear: External ear normal. No mastoid tenderness. - Mouth/Throat: The oropharynx is clear and moist. No trismus in the jaw. No d ental abscesses or uvula swelling. No oropharyngeal exudate or tonsillar abscesses. ____ EYES: Conjunctivae and EOM are normal. Pupils are equal, round, and reactive to light. Right eye exhibits no discharge. Left eye exhibits no discharge. No scleral icterus. ____ NECK: Normal range of motion. Neck supple. No JVD present. No spinous process tenderness present. No carotid bruit present. No rigidity. No tracheal deviation and normal range of motion present. No Brudzinski's sign and no Kernig's sign noted. ____ CV: Tachycardic rate, regular rhythm, normal heart sounds and intact distal pulses. There is no peripheral edema. Palpable radial pulses bue. ____ PULM/CHEST: Tachypneic, rales bilaterally. - Chest Wall: He exhibits no tenderness. ____ ABD: The abdomen is soft. Bowel sounds are normal. He has no distension. No mass is present. There is no tenderness. There is no rebound, no guarding, no Montes's sign and no tenderness at McBurney's point. Rovsig negative MUSC/SKEL: Left-sided BKA. LYMPH: No cervical adenopathy. ____ NEURO: He is alert and oriented to person, place, and time. He has normal strength. No cranial nerve deficit or sensory deficit. Coordination and gait nor mal. GCS eye subscore is 4. GCS verbal subscore is 5. GCS motor subscore is 6. cerbellar tests wnl. ____ SKIN: Skin is warm and dry. He is not diaphoretic. Post-op incision over the right hip, clean, dry, no discharge, no erythema, or warmth. PSYCH: He has a normal mood and affect. His behavior is normal. Judgment and thought content normal. ____ Course Course 1437: The patient was evaluated in room C10, and a complete history and physical examination were performed. The patient is found to be tachycardic, hypoxic, and low grade fever. A code sepsis was called and fluid bolus was ordered. The patient was hypoxic and was placed on double mental oxygen via nasal cannula which improved his oxygen saturations. 1504: The patient's oxygen saturation is stable and he is on supplemental oxygen via nasal cannula. He is in no respiratory distress at this time and his temperature is elevated. His chest X-Ray was viewed by me showed findings of fluid overload with possible infiltrate. The patient's blood pressure is stable at this time. Given this, IV fluids will be held at this time. Antipyretics will be given through IV and empiric antibiotics will be ordered. 1521: Vital signs stable on supplemental oxygen. Labs are within normal limits with exception of glucose of 68. Patient will be given p.o. Creatinine at baseline at 3.52. Lactic acid within normal limits. proBNP is elevated. I reviewed the patient's case with Dr. Vani Lima- [facility] Hospitalist. I had a long discussion with Dr. Lima that the patient is a postoperative hip replacement patient and is not on any anticoagulation. Given his tachycardia and hypoxia, PE was on differential, however given the patient's fever and chest x-ray fi ndings is more likely thought that the patient's hypoxia is due to pneumonia/fluid overload. CTA of the chest was ordered in the emergency department given the patient's elevated creatinine level and his history of having a kidney transplant. I did discuss with Dr. Lima she will evaluate the patient further and determine if he needs any other advanced imaging such as VQ scan to rule out PE. At this time PE is thought to be less likely and fluid overload/pneumonia is thought to be the cause of the patient's fever, hypoxia, and presenting symptoms to the emergency department. Administered Medications Furosemide (Lasix) 20 mg IV NOW STA Stop: 03/29/19 15:22 Last Admin: 03/29/19 15:27 Dose: 20 mg Documented by: [id number] Cefepime HCl (Maxipime) 2,000 mg in 20 mls @ 5 mls/min IV NOW STA; Protocol Stop: 03/29/19 15:01 Last Admin: 03/29/19 15:24 Dose: 5 mls/min Documented by: [id number] Vancomycin HCl 1,500 mg/ (Sodium Chloride) 530 mls @ 200 mls/hr IV NOW ONE Stop: 03/29/19 17:36 Last Admin: 03/29/19 16:22 Dose: 200 mls/hr Documented by: [id number] Acetaminophen ([facility]) 1,000 mg in 100 mls @ 400 mls/hr IV NOW STA Stop: 03/29/19 15:18 Last Infusion: 03/29/19 16:10 Dose: 0 mls/hr Documented by: [id number] Admin: 03/29/19 15:24 Dose: 400 mls/hr Documented by: [id number] Critical Care Time Critical Care Time: Yes Total Critical Care Time: 49 I have personally spent 49 minutes of critical care time in the direct management of this patient. This includes bedside care, interpretation of diagnostic studies, and testing, discussion with consultants, patient, and famil y members, and other required patient management activities. This 49 minutes is in excess of all separately billable procedures. Medical Decision Making Medical Records Attestation: I reviewed the patient's medical records. Home Medications Current Medication List: was personally reviewed by me Laboratory Data Attestation: I reviewed the patient's lab results. Result diagrams: 03/29/19 14:20 03/29/19 14:20 Lab Results 03/29/19 03/29/19 03/29/19 Range/Units 14:20 14:20 14:20 WBC 11.87 H (4.8-10.8) K/uL RBC 3.36 L (4.7-6.1) M/uL Hgb 9.0 L (14.0-18.0) g/dL Hct 28.5 L (42-52) % MCV 84.8 (80-100) fL MCH 26.8 (25-34) pg MCHC 31.6 L (32-36) g/dL RDW Std Deviation 50.8 H (36.4-46.3) fL RDW Coeff of Michelle 16.5 H (11.5-14.5) % Plt Count 270 (130-400) K/uL MPV 11.5 H (7.4-10.4) fL Immature Gran % (Auto) 0.8 % Neut % (Auto) 69.2 % Lymph % (Auto) 15.5 % Edmunds % (Auto) 11.6 % Eos % (Auto) 2.6 % Baso % (Auto) 0.3 % Immature Gran # (Auto) 0.09 H (0.00-0.02) K/uL Neut # (Auto) 8.22 H (1.4-6.5) K/uL Lymph # (Auto) 1.84 (1.2-3.4) K/uL Edmunds # (Auto) 1.38 H (0.11-0.59) K/uL Eos # (Auto) 0.31 (0-0.5) K/uL Baso # (Auto) 0.03 (0-0.2) K/uL Absolute Nucleated RBC 0.03 H (0-0) K/uL Nucleated RBC % (auto) 0.2 % PT 10.8 (9.0-12.0) Seconds INR 1.1 (0.9-1.1) APTT 31.0 (21.0-31.0) Seconds PTT Ratio 1.1 Sodium 139 (136-145) mmol/L Potassium 4.8 (3.5-5.1) mmol/L Chloride 109 H (98-107) mmol/L Carbon Dioxide 23 (21-32) mmol/L Anion Gap 7.0 (3-11) BUN 75 H (7-18) mg/dl Creatinine 3.52 H (0.6-1.4) mg/dl Est Cr Clr Drug Dosing 24.0 ml/min Est GFR ( Amer) 23.2 Est GFR (Non-Af Amer) 20.0 BUN/Creatinine Ratio 21.3 H (10-20) Glucose 68 L (70-99) mg/dl Lactate (0.4-2.0) mmol/L Calcium 9.2 (8.5-10.1) mg/dl Magnesium 2.3 (1.8-2.4) mg/dl Total Bilirubin 0.3 (0.2-1) mg/dl AST 25 (15-37) U/L ALT 17 (12-78) U/L Alkaline Phosphatase 103 (45-117) U/L Troponin I < 0.015 (0-0.045) ng/ml NT-Pro-B Natriuret Pep 10923 H (0-450) pg/ml Total Protein 7.2 (6.4-8.2) gm/dl Albumin 2.5 L (3.4-5.0) gm/dl Globulin 4.7 H (2.5-4.0) gm/dl Albumin/Globulin Ratio 0.5 L (0.9-2) Procalcitonin (0-0.5) ng/ml Urine Color Urine Appearance (Clear) Urine pH (4.5-7.5) Ur Specific [place] (1.000-1.030) Urine Protein (Negative) Urine Glucose (UA) (Negative) Urine Ketones (Negative) Urine Blood (Negative) Urine Nitrite (Negative) Urine Bilirubin (Negative) Urine Urobilinogen (Negative) Ur Leukocyte Esterase (Negative) Urine WBC (Auto) (0-5) /hpf Urine RBC (Auto) (0-4) /hpf U Hyaline Cast (Auto) (0-5) /lpf U Epithel Cells (Auto) (0-5) /lpf Urine Bacteria (Auto) (Negative) Influenza Type A (PCR) (Neg) Influenza Type B (PCR) (Neg) 03/29/19 03/29/19 03/29/19 Range/Units 14:20 14:44 14:50 WBC (4.8-10.8) K/uL RBC (4.7-6.1) M/uL Hgb (14.0-18.0) g/dL Hct (42-52) % MCV (80-100) fL MCH (25-34) pg MCHC (32-36) g/dL RDW Std Deviation (36.4-46.3) fL RDW Coeff of Michelle (11.5-14.5) % Plt Count (130-400) K/uL MPV (7.4-10.4) fL Immature Gran % (Auto) % Neut % (Auto) % Lymph % (Auto) % Edmunds % (Auto) % Eos % (Auto) % Baso % (Auto) % Immature Gran # (Auto) (0.00-0.02) K/uL Neut # (Auto) (1.4-6.5) K/uL Lymph # (Auto) (1.2-3.4) K/uL Edmunds # (Auto) (0.11-0.59) K/uL Eos # (Auto) (0-0.5) K/uL Baso # (Auto) (0-0.2) K/uL Absolute Nucleated RBC (0-0) K/uL Nucleated RBC % (auto) % PT (9.0-12.0) Seconds INR (0.9-1.1) APTT (21.0-31.0) Seconds PTT Ratio Sodium (136-145) mmol/L Potassium (3.5-5.1) mmol/L Chloride (98-107) mmol/L Carbon Dioxide (21-32) mmol/L Anion Gap (3-11) BUN (7-18) mg/dl Creatinine (0.6-1.4) mg/dl Est Cr Clr Drug Dosing ml/min Est GFR ( Amer) Est GFR (Non-Af Amer) BUN/Creatinine Ratio (10-20) Glucose (70-99) mg/dl Lactate 0.9 (0.4-2.0) mmol/L Calcium (8.5-10.1) mg/dl Magnesium (1.8-2.4) mg/dl Total Bilirubin (0.2-1) mg/dl AST (15-37) U/L ALT (12-78) U/L Alkaline Phosphatase (45-117) U/L Troponin I (0-0.045) ng/ml NT-Pro-B Natriuret Pep (0-450) pg/ml Total Protein (6.4-8.2) gm/dl Albumin (3.4-5.0) gm/dl Globulin (2.5-4.0) gm/dl Albumin/Globulin Ratio (0.9-2) Procalcitonin 0.29 (0-0.5) ng/ml Urine Color Urine Appearance (Clear) Urine pH (4.5-7.5) Ur Specific [place] (1.000-1.030) Urine Protein (Negative) Urine Glucose (UA) (Negative) Urine Ketones (Negative) Urine Blood (Negative) Urine Nitrite (Negative) Urine Bilirubin (Negative) Urine Urobilinogen (Negative) Ur Leukocyte Esterase (Negative) Urine WBC (Auto) (0-5) /hpf Urine RBC (Auto) (0-4) /hpf U Hyaline Cast (Auto) (0-5) /lpf U Epithel Cells (Auto) (0-5) /lpf Urine Bacteria (Auto) (Negative) Influenza Type A (PCR) Neg for Influ A (Neg) Influenza Type B (PCR) Neg for Influ B (Neg) 03/29/19 Range/Units 15:30 WBC (4.8-10.8) K/uL RBC (4.7-6.1) M/uL Hgb (14.0-18.0) g/dL Hct (42-52) % MCV (80-100) fL MCH (25-34) pg MCHC (32-36) g/dL RDW Std Deviation (36.4-46.3) fL RDW Coeff of Michelle (11.5-14.5) % Plt Count (130-400) K/uL MPV (7.4-10.4) fL Immature Gran % (Auto) % Neut % (Auto) % Lymph % (Auto) % Edmunds % (Auto) % Eos % (Auto) % Baso % (Auto) % Immature Gran # (Auto) (0.00-0.02) K/uL Neut # (Auto) (1.4-6.5) K/uL Lymph # (Auto) (1.2-3.4) K/uL Edmunds # (Auto) (0.11-0.59) K/uL Eos # (Auto) (0-0.5) K/uL Baso # (Auto) (0-0.2) K/uL Absolute Nucleated RBC (0-0) K/uL Nucleated RBC % (auto) % PT (9.0-12.0) Seconds INR (0.9-1.1) APTT (21.0-31.0) Seconds PTT Ratio Sodium (136-145) mmol/L Potassium (3.5-5.1) mmol/L Chloride (98-107) mmol/L Carbon Dioxide (21-32) mmol/L Anion Gap (3-11) BUN (7-18) mg/dl Creatinine (0.6-1.4) mg/dl Est Cr Clr Drug Dosing ml/min Est GFR ( Amer) Est GFR (Non-Af Amer) BUN/Creatinine Ratio (10-20) Glucose (70-99) mg/dl Lactate (0.4-2.0) mmol/L Calcium (8.5-10.1) mg/dl Magnesium (1.8-2.4) mg/dl Total Bilirubin (0.2-1) mg/dl AST (15-37) U/L ALT (12-78) U/L Alkaline Phosphatase (45-117) U/L Troponin I (0-0.045) ng/ml NT-Pro-B Natriuret Pep (0-450) pg/ml Total Protein (6.4-8.2) gm/dl Albumin (3.4-5.0) gm/dl Globulin (2.5-4.0) gm/dl Albumin/Globulin Ratio (0.9-2) Procalcitonin (0-0.5) ng/ml Urine Color Yellow Urine Appearance Clear (Clear) Urine pH 5.0 (4.5-7.5) Ur Specific [place] 1.021 (1.000-1.030) Urine Protein 3+ H (Negative) Urine Glucose (UA) 1+ H (Negative) Urine Ketones Negative (Negative) Urine Blood Negative (Negative) Urine Nitrite Negative (Negative) Urine Bilirubin Negative (Negative) Urine Urobilinogen Negative (Negative) Ur Leukocyte Esterase Negative (Negative) Urine WBC (Auto) 1-5 (0-5) /hpf Urine RBC (Auto) 5-10 H (0-4) /hpf U Hyaline Cast (Auto) 5-10 H (0-5) /lpf U Epithel Cells (Auto) 10-20 H (0-5) /lpf Urine Bacteria (Auto) Negative (Negative) Influenza Type A (PCR) (Neg) Influenza Type B (PCR) (Neg) Imaging Data Radiologist's Impression: Radiology results as stated below per my review and the radiologist's interpretation: XR chest 1V portable CLINICAL HISTORY: SEPSIS COMPARISON STUDY: Chest radiograph November 27, 2018. FINDINGS: There are suspected trace bilateral pleural effusions. There is no pneumothorax. Moderate enlargement of the cardiac silhouette is noted. This is increased when compared to prior exam. There is interstitial thickening. Multiple bilateral airspace opacities are noted. IMPRESSION: 1. Interstitial thickening suggestive of interstitial pulmonary edema. 2. Bilateral airspace opacities which may reflect alveolar edema or superimposed pneumonia. Radiographic follow up to ensure resolution is recommended. 3. Suspected trace bilateral pleural effusions. 4. Moderate enlargement of the cardiac silhouette. ACT 112: Negative or not required by law. Electronically signed by: Carl Terry M.D. 03/29/2019 2:55 PM ECG Data Attestation: I personally reviewed and interpreted this ECG as follows: Indication: + SOB/dyspnea Rate (beats per minute): 116 ECG Intervals/blocks: + Normal QRS, + Normal QT and + Normal QT-c ECG ST segments: no ST depression and no ST elevation Blood Pressure Blood Pressure Findings: Elevated blood pressure Blood Pressure Disposition: further management by hospitalist [facility] Narrative 1437: The patient was evaluated in room C10, and a complete history and physical examination were performed. The patient is found to be tachycardic, hypoxic, and low grade fever. A code sepsis was called and fluid bolus was ordered. The patient was hypoxic and was placed on double mental oxygen via nasal cannula which improved his oxygen saturations. 1504: The patient's oxygen saturation is stable and he is on supplemental oxygen via nasal cannula. He is in no respiratory distress at this time and his tem perature is elevated. His chest X-Ray was viewed by me showed findings of fluid overload with possible infiltrate. The patient's blood pressure is stable at this time. Given this, IV fluids will be held at this time. Antipyretics will be given through IV and empiric antibiotics will be ordered. 1521: Vital signs stable on supplemental oxygen. Labs are within normal limits with exception of glucose of 68. Patient will be given p.o. Creatinine at baseline at 3.52. Lactic acid within normal limits. proBNP is elevated. I reviewed the patient's case with Dr. Vani Lima- [facility] Hospitalist. I had a long discussion with Dr. Lima that the patient is a postoperative hip replacement patient and is not on any anticoagulation. Given his tachycardia and hypoxia, PE was on differential, however given the patient's fever and chest x-ray findings is more likely thought that the patient's hypoxia is due to pneumonia/fluid overload. CTA of the chest was ordered in the emergency department given the patient's elevated creatinine level and his history of having a kidney transplant. I did discuss with Dr. Lima she will evaluate the patient further and determine if he needs any other advanced imaging such as VQ scan to rule out PE. At this time PE is thought to be less likely and fluid overload/pneumonia is thought to be the cause of the patient's fever, hypoxia, and presenting symptoms to the emergency department. Impression & Plan Hypoxia, CHF exacerbation, Sepsis Discharge Plan Visit Data *Final* Discharge Date/Time: 03/29/19 17:17 Chief Complaint: Shortness of Breath/Dyspnea ED Provider: Jb Mireles Discharge Problem: Hypoxia, CHF exacerbation, Sepsis Patient Disposition: Admitted As Inpatient Discharge Instructions Interventions: ED Discharge Assessment Last Done: 03/29/19 17:17 Discharge Problem: CHF exacerbation Qualifiers: Heart failure type: unspecified Qualified Code(s): I50.9 - Heart failure, unspecified Sepsis Qualifiers: Sepsis type: sepsis due to unspecified organism Sepsis acute organ dysfunction status: unspecified Qualified Code(s): A41.9 - Sepsis, unspecified organism The scribe's documentation has been prepared under my direction and personally reviewed by me in its entirety. I confirm that the note above accurately reflects all work, treatment, procedures, and medical decision making performed by me.
--- NOTE | 2019-03-29 19:17 | CT Scan Report ---
CT chest wo con CT DOSE: 375.50 mGycm HISTORY: Dyspnea hypoxia TECHNIQUE: Multiaxial CT images of the chest were performed without contrast. A dose lowering techni que was utilized adhering to the principles of ALARA. COMPARISON: None. FINDINGS: Diffuse patchy bilateral parenchymal infiltrative change. This predominates in the mid-uppe r lung regions bilaterally. There are small bilateral pleural effusions. Findings of mild dependent basilar atelectatic change. Trace amount of pericardial fluid. IMPRESSION: 1. Findings consistent with diffuse patchy parenchymal infiltrative change. 2. Small bilateral pleural effusions. ACT 112: Negative or not required by law. The above report was generated using voice recognition software. It may contain grammatical, syntax or spelling errors. Electronically signed by: Nestor Recinos M.D. 03/29/2019 7:15 PM
--- NOTE | 2019-03-29 20:12 | Pharmacy Report ---
Pharmacy Abx Initial Consult - Date of Service March 29, 2019 - Pharmacy Dosing Scope Date of Consult: 03/29/2019 Consultation requested by: Dr. Lima Pharmacy is consulted to initiate Vancomycin IV dosing therapy, order appropriate labs and adjust drug dose/frequency. - Subjective The patient is a 43 year old M admitted on 03/29/19 16:40. - Objective Height: 5 ft 2 in Weight: 75.1 kg Vital Signs (Past 12hrs): Vital Signs Temp Pulse Pulse Resp BP BP Pulse Ox 03/29/19 18:15 37.6 C H 98 H 18 152/99 H 98 03/29/19 17:16 95 03/29/19 17:00 103 H 19 100 03/29/19 16:50 103 H 18 100 03/29/19 16:40 104 H 19 100 03/29/19 16:31 104 H 20 100 03/29/19 16:30 105 H 21 155/86 H 100 03/29/19 16:27 37.6 C H 03/29/19 16:20 108 H 21 100 03/29/19 16:10 108 H 20 99 03/29/19 16:01 109 H 28 H 100 03/29/19 16:00 108 H 23 169/101 H 100 03/29/19 15:31 108 H 27 H 99 03/29/19 15:30 109 H 25 H 186/116 H 99 03/29/19 15:01 108 H 24 99 03/29/19 15:00 108 H 25 H 184/111 H 99 03/29/19 14:54 96 03/29/19 14:53 38.5 C H 03/29/19 14:39 112 H 25 H 187/115 H 99 03/29/19 14:30 109 H 29 H 99 03/29/19 14:24 112 H 30 H 95 03/29/19 14:18 119 H 26 H 189/133 H 96 03/29/19 14:10 37.8 C H 117 H 35 H 189/133 H 87 L Lab Results (24hrs): Laboratory Tests (24 Hours) 03/29/19 03/29/19 03/29/19 14:20 14:20 14:20 WBC 11.87 H Neut # (Auto) 8.22 H Creatinine 3.52 H Est Cr Clr Drug Dosing 24.0 Procalcitonin 0.29 Micro Results: 03/29/19 14:51 Aerobic Blood Culture - Pending Blood Anaerobic Blood Culture - Pending 03/29/19 14:51 Aerobic Blood Culture - Pending Blood Anaerobic Blood Culture - Pending - Risk Factors for Resistance * Hospitalization for 48 hours or more within the past 90 days * From 03/17-03/25 s/p MIGUEL, was at [facility] * Immunocompromised (chronic steroid therapy, chemotherapy, immunomodulators) * Patient on tacrolimus, sirolimus and prednisone at home for h/o kidney transplant * Antimicrobial use within the last 90 days * On doxy 50 mg bid chronically at home * During MIGUEL admission, received Cefazolin pre- and post-op - Assessment & Plan Assessment 43 year old M admitted today secondary to shortness of breath * Recently hospitalized from 03/17-03/25 for MIGUEL * PMHx significant for T1DM; L BKA; was on HD until kidney transplant in 2001; immunocompromised secondary to sirolimus, tacrolimus, and prednisone use * Upon admission, [place] [address], SCr elevated at 3.52 (approx. baseline), normal lactate, PCT of 0.29 * Patient being treated empirically with cefepime and vancomycin * Continuing on chronic suppression therapy with doxycycline 50 mg po bid Plan IV Vancomycin and Cefepime empirically Vancomycin IV * Estimated PK Parameters: Vd 0.6 L/kg, Neville 0.024 hr-1, t1/2 ~30 hrs * Loading dose: 1500 mg (20 mg/kg) * Maintenance dose: 1000 mg IV (13 mg/kg) every 24 hours * Goal trough level for empiric therapy: 15 to 20 mcg/mL * No trough level ordered as of yet secondary 48 hour stop date with empiric antibiotics * A less than traditional dose has been selected due to likelihood of drug accumulation in patient with h/o CKD. Cefepime * Target dose = 2 g IV every 8 hours * Renal dose = 1 g IV every 12 hours for eCrCl 11-29 mL/min Pharmacy will continue to follow and will adjust dose/frequency as necessary. Thank you.
--- NOTE | 2019-03-29 20:12 | Electrocardiogram Report ---
Test Reason : Blood Pressure : / mmHG Vent. Rate : 116 BPM Atrial Rate : 116 BPM P-R Int : 154 ms QRS Dur : 078 ms QT Int : 302 ms P-R-T Axes : 050 034 131 degrees QTc Int : 419 ms Sinus tachycardia Possible Left atrial enlargement Anteroseptal infarct (cited on or before 03-APR-2017) Abnormal ECG When compared with ECG of 27-NOV-2018 09:33, ST now depressed in Lateral leads T wave inversion less evident in Inferior leads T wave inversion now evident in Lateral leads Confirmed by Delio Otoole ([id number]) on 03/29/2019 8:11:50 PM Referred By: ED Confirmed By:Angel Otoole
--- NOTE | 2019-03-29 21:01 | History & Physical Report ---
Date of Service March 29, 2019 Assessment & Plan (1) Sepsis: 43yo C male with history of renal transplant on immunosuppression with Tacrollimus and Prednisone 5mg daily. Patient febrile, tachycardic, tachypneic with neutrophil predominant leukocytosis on arrival, newly hypoxic requiring s upplemental oxygen use. CXR and CT with bilateral airspace disease concerning for CHF vs infectious process. Influenza negative. Most likely source is pulmonary/PNA. Recent hospitalization puts patient at increased risk for gram- negative and resistent organisms. - Admit to PCU -Follow cultures, blood, urine and sputum -Vancomycin and Cefepime -Supplemental O2 as needed Present on Admission?: Yes (2) Hypoxia: Patient 87% on room air on arrival, improved with supplemental O2. Presently 98% on 4L NC. Suspect infectious etiology more than acute exacerbation of CHF at this time. Possibly component of flash-pulmonary edema as patient's blood pressure markedly elevated on arrival to the ER. He was given Lasix in the ER x 1 20mg dose. Recent dobutamine stress echo with intact EF, anterior WMA corresponding to prior [place]. Troponin x 1 negative. BNP is elevated at 22,988. LaStly to consider is possible embolic event. Patient with compromised renal function, will not pursue contrast study at this time as PNA/airspace disease likely explains patient's hypoxia and pulmonary symptoms. -Monitor UOP -Treatment of suspected PNA as above -Supplemental O2 as needed to maintain saturations 94% Present on Admission?: Yes (3) Diabetes: Longstanding history of Type-I DM. Insulin pump in place. Blood sugar on arrival = 68. Patient with no symptoms, states he doesn't get symptomatic until blood sugar drops to the 40's. -BS checks qAC/HS. -Will maintain insulin pump in place at current settins -If patient continues to be hypoglycemic or displays erratic blood sugars will discontinue pump and manage with basal/bolus regimen -Carb counting diet as tolerated -Continue Lyrica for diabetic polyneuropathy Present on Admission?: Yes (4) HTN (hypertension): Blood pressure markedly elevated on arrival. Has since improved. He reports his baseline pressure tends to be 145/90 -Continue Amlodipine -Continue Metoprolol -Continue to monitor Present on Admission?: Yes (5) End-stage renal failure with renal transplant: Patient with renal transplant in place. BUN and Cr are near baseline. UA with 3+ proteinuria and glucose, patient has had proteinuria in the past. He follows with Dr. Samson -Continue Tacrolimus at home dosage. If patient's clinical condition deteriorates will hold and manage with high dose steroids. -Continue daily prednisone -Continue to monitor BUN/Cr, electrolytes and UOP -Continue Doxycycline Present on Admission?: Yes (6) Moderate obstructive sleep apnea: Chronic. Patient reports compliance with home CPAP -Continue CPAP Present on Admission?: Yes (7) Gout: Chronic. Stable -Continue Allopurinol Present on Admission?: Yes (8) Gastroesophageal reflux: Chronic. Stable -Continue Protonix Present on Admission?: Yes (9) Dyslipidemia: Chronic. Stable -Continue Atorvastatin Present on Admission?: Yes (10) CAD in [place] artery: Chronic. Patient denies chest discomfort. Troponin x 1 negative -Continue ASA, Plavix, Atorvastatin, Metoprolol -Telemetry monitoring Present on Admission?: Yes (11) Avascular necrosis of bone of right hip: s/p MIGUEL performed on 03/17/19. Patient is doing well post-operatively -Pain control -Plan to return to [facility] for continued rehab (12) Depression: Chronic. -Continue Sertraline History of Present Illness Chief Complaint: SOB Primary Care Provider: Kobe Samson MD Constantine Dalton is a 43yo C male with history of renal transplant, HTN, DM-I, CAD s/p stent presenting with SOB. Patient was recently admitted to the hospital recently and had a right MIGUEL performed on 03/17/19 for avascular necrosis. The surgery was well tolerated and he was discharged to [facility] in stable condition on 03/26/19. He reports doing well, participating in rehab exercises without difficulty. This afternoon during his exercises he felt short of breath. He was unable to complete his activities and laid down around 11:30. Around 13:30 he woke up acutely short of breath, he reports his oxygen saturation at that time was 87%. He was brought to the ER. Upon arrival he was found to be febrile at 38.5, tachycardic at 117, BP of 189/133, RR of 35 and sa turating 87% on room air. He was placed on nasal cannula with improvement in oxygenation. He has had a cough productive for dark colored, bloody sputum as well as some mild nausea and constipation, one episode of vomiting. He admits to worsening LE edema. Denies weight gain, orhtopnea. No CP/palpitations. No abdominal pain. Surgical site is healing well. No bleeding or drainage. He reports multiple sick contacts, multiple people at [facility] with URI symptoms. No recent travel. ER Course: TYlenol, Vancomycin, Cefepime, Lasix Allergies Allergy/AdvReac Type Severity Reaction Status Date / Time PORK INSULIN Allergy Unknown Hives Uncoded 03/29/19 14:58 Home Medications Home Medications Medication Instructions Recorded Confirmed Type acetone (urine) test #25 ea 10/05/18 02/22/19 History glucagon (human recombinant) 1 mg 1 mg IM .COMPLEX PRN 10/05/18 03/29/19 History solution for injection insulin aspart U-100 100 unit/mL 100 units SQ .COMPLEX ml 10/05/18 03/29/19 History subcutaneous solution insulin syringe-needle U-100 0.5 #10 ea 10/05/18 02/22/19 History mL 31 gauge x 5/16" lancets 33 gauge #100 ea 10/05/18 02/22/19 History metoprolol succinate 50 mg 50 mg PO HS #90 tab 10/05/18 03/29/19 History tablet,extended release 24 hr tacrolimus 1 mg capsule 3 mg PO BID cap 10/05/18 03/29/19 History pregabalin 75 mg capsule 75 mg PO BID #60 cap 10/12/18 03/29/19 Rx aspirin 81 mg PO HS 11/23/18 03/29/19 History Dexcom G6 Car Salter #1 ea NS 11/30/18 02/22/19 Rx Dexcom G6 Sensor #9 ea NS 11/30/18 02/22/19 Rx Dexcom G6 Transmitter #1 ea NS 11/30/18 02/22/19 Rx sirolimus 2 mg tablet 4 mg PO HS #180 tab 12/16/18 03/29/19 Rx blood sugar diagnostic #10 ea 12/22/18 02/22/19 Rx blood sugar diagnostic #100 ea 12/22/18 02/22/19 Rx 3-in-1 Commode #1 ea 02/22/19 02/22/19 Rx Wheeled Walker #1 ea 02/22/19 02/22/19 Rx Wheeled Walker #1 ea 02/22/19 02/22/19 Rx hydromorphone 2 mg tablet 2 mg PO Q4H PRN #90 tab 03/15/19 03/29/19 Rx allopurinol 300 mg tablet 300 mg PO HS #90 tab 03/16/19 03/29/19 Rx atorvastatin 80 mg tablet 80 mg PO HS #90 tab 03/16/19 03/29/19 Rx doxycycline hyclate 50 mg capsule 50 mg PO BID #180 cap 03/16/19 03/29/19 Rx prednisone 5 mg tablet 5 mg PO HS #90 tab 03/16/19 03/29/19 Rx sertraline 50 mg tablet 50 mg PO HS #90 tab 03/16/19 03/29/19 Rx acetaminophen [Tylenol Extra 1,000 mg PO TID 30 Days #180 tab 03/19/19 03/29/19 Rx Strength] ferrous gluconate 324 mg PO BIDM 30 Days #60 tab 03/19/19 03/29/19 Rx hydromorphone 2 - 4 mg PO Q4H PRN #40 tab 03/19/19 03/29/19 Rx amlodipine 2.5 mg PO ONCE 03/29/19 03/29/19 History clopidogrel [Plavix] 75 mg PO QAM 03/29/19 03/29/19 History docusate sodium [Colace] 100 mg PO BID 03/29/19 03/29/19 History pantoprazole 40 mg PO HS 03/29/19 03/29/19 History Past Med/Surg History Medical History Anxiety (Chronic) CAD (coronary artery disease) Chronic renal insufficiency (Chronic) Deep vein thrombosis ARM (10 YEARS AGO) AT [facility] Depression (Chronic) Diabetes mellitus type 1 INSULIN PUMP Fistula LEFT ARM (NON FUNCTIONING) GERD (gastroesophageal reflux disease) Gout Hyperlipidemia Hypertension Mitral regurgitation MILD-MOD Myocardial Infarction 2016 Peripheral neuropathy Sensory problems with limbs (Chronic) Sleep apnea CPAP Surgical History H/O eye surgery LEFT/RT LASER SURGERY History of below knee amputation LEFT REVISION (5 TOTAL) History of cardiac cath 2016 - [place] - [facility] - 2 STENTS - FOLLOWS W/ DR. JURADO History of heart artery stent 2016 (2 STENTS PLACED) AT [facility] Kidney transplant recipient 2001 Family History Grandfather Family history of diabetes mellitus Social History Preferred Language: Yakut Communication Ability: Effective Quality Assurance Test Program Manager Required: No Beliefs That Will Affect Care: None marital status: Current Living Situation: Rehab Current Living Situation Comment: [facility] Other Information That Helps Us Care for You: No Feels Safe at Home: Yes Safety Concerns: Feels Safe At This Time Smoking Status: Never smoker Tobacco Type: smokeless tobacco ; Second Hand Exposure: No ; Hx Alcohol Use: Yes Alcohol type: beer Hx Substance Use: No Review of Systems Review of Systems: All systems reviewed & are unremarkable except as noted in HPI & below Physical Exam Physical Exam: General: patient resting comfortably, NAD, non-toxic in appearance, AA&O x 4 Skin: warm, dry, intact, small petechiae on anterior chest HEENT: NC/AT, PERRL, EOMI, anicteric sclera, conjunctiva without injection, ex ternal ear normal to inspection and nontender, nares patent, moist mucus membranes, dentition intact, no oropharyngeal lesions, neck supple, trachea midline, no LAD, no thyromegaly, no JVD Heart: +S1/S2, regular, no m/r/g Lungs: equal air entry bilaterally, +crackles in bilateral bases, diffuse wheezing bilaterally Abd: +BS, soft, NT/ND, transplant palpable in lower abdomen, nontender, insulin pump in place RLQ Ext: Left prosthesis in place, RLE warm, palpable pulse, 1+ pitting edema Neuro: nonfocal, patient AA&O x 4, speech intact, no facial droop, moving all extremities on command with equal strength 5/5 Results & Data Vital Signs (Past 12 Hours) Vital Signs Temp Pulse Pulse Resp BP BP Pulse Ox 03/29/19 18:15 37.6 C H 98 H 18 152/99 H 98 03/29/19 17:16 95 03/29/19 17:00 103 H 19 100 03/29/19 16:50 103 H 18 100 03/29/19 16:40 104 H 19 100 03/29/19 16:31 104 H 20 100 03/29/19 16:30 105 H 21 155/86 H 100 03/29/19 16:27 37.6 C H 01/27/20 16:20 108 H 21 100 03/29/19 16:10 108 H 20 99 03/29/19 16:01 109 H 28 H 100 03/29/19 16:00 108 H 23 169/101 H 100 03/29/19 15:31 108 H 27 H 99 03/29/19 15:30 109 H 25 H 186/116 H 99 03/29/19 15:01 108 H 24 99 03/29/19 15:00 108 H 25 H 184/111 H 99 03/29/19 14:54 96 03/29/19 14:53 38.5 C H 03/29/19 14:39 112 H 25 H 187/115 H 99 03/29/19 14:30 109 H 29 H 99 03/29/19 14:24 112 H 30 H 95 03/29/19 14:18 119 H 26 H 189/133 H 96 03/29/19 14:10 37.8 C H 117 H 35 H 189/133 H 87 L Laboratory Results Lab Results 03/29/19 03/29/19 03/29/19 Range/Units 14:20 14:20 14:20 WBC 11.87 H (4.8-10.8) K/uL RBC 3.36 L (4.7-6.1) M/uL Hgb 9.0 L (14.0-18.0) g/dL Hct 28.5 L (42-52) % MCV 84.8 (80-100) fL MCH 26.8 (25-34) pg MCHC 31.6 L (32-36) g/dL RDW Std Deviation 50.8 H (36.4-46.3) fL RDW Coeff of Michelle 16.5 H (11.5-14.5) % Plt Count 270 (130-400) K/uL MPV 11.5 H (7.4-10.4) fL Immature Gran % (Auto) 0.8 % Neut % (Auto) 69.2 % Lymph % (Auto) 15.5 % [place] % (Auto) 11.6 % Eos % (Auto) 2.6 % Baso % (Auto) 0.3 % Immature Gran # (Auto) 0.09 H (0.00-0.02) K/uL Neut # (Auto) 8.22 H (1.4-6.5) K/uL Lymph # (Auto) 1.84 (1.2-3.4) K/uL Candler # (Auto) 1.38 H (0.11-0.59) K/uL Eos # (Auto) 0.31 (0-0.5) K/uL Baso # (Auto) 0.03 (0-0.2) K/uL Absolute Nucleated RBC 0.03 H (0-0) K/uL Nucleated RBC % (auto) 0.2 % PT 10.8 (9.0-12.0) Seconds INR 1.1 (0.9-1.1) APTT 31.0 (21.0-31.0) Seconds PTT Ratio 1.1 Sodium 139 (136-145) mmol/L Potassium 4.8 (3.5-5.1) mmol/L Chloride 109 H (98-107) mmol/L Carbon Dioxide 23 (21-32) mmol/L Anion Gap 7.0 (3-11) BUN 75 H (7-18) mg/dl Creatinine 3.52 H (0.6-1.4) mg/dl Est Cr Clr Drug Dosing 24.0 ml/min Est GFR ( Amer) 23.2 Est GFR (Non-Af Amer) 20.0 BUN/Creatinine Ratio 21.3 H (10-20) Glucose 68 L (70-99) mg/dl POC Glucose (70-99) mg/dl Lactate (0.4-2.0) mmol/L Calcium 9.2 (8.5-10.1) mg/dl Magnesium 2.3 (1.8-2.4) mg/dl Total Bilirubin 0.3 (0.2-1) mg/dl AST 25 (15-37) U/L ALT 17 (12-78) U/L Alkaline Phosphatase 103 (45-117) U/L Troponin I < 0.015 (0-0.045) ng/ml NT-Pro-B Natriuret Pep 60073 H (0-450) pg/ml Total Protein 7.2 (6.4-8.2) gm/dl Albumin 2.5 L (3.4-5.0) gm/dl Globulin 4.7 H (2.5-4.0) gm/dl Albumin/Globulin Ratio 0.5 L (0.9-2) Procalcitonin (0-0.5) ng/ml Urine Color Urine Appearance (Clear) Urine pH (4.5-7.5) Ur Specific [place] (1.000-1.030) Urine Protein (Negative) Urine Glucose (UA) (Negative) Urine Ketones (Negative) Urine Blood (Negative) Urine Nitrite (Negative) Urine Bilirubin (Negative) Urine Urobilinogen (Negative) Ur Leukocyte Esterase (Negative) Urine WBC (Auto) (0-5) /hpf Urine RBC (Auto) (0-4) /hpf U Hyaline Cast (Auto) (0-5) /lpf U Epithel Cells (Auto) (0-5) /lpf Urine Bacteria (Auto) (Negative) Influenza Type A (PCR) (Neg) Influenza Type B (PCR) (Neg) 03/29/19 03/29/19 03/29/19 Range/Units 14:20 14:44 14:50 WBC (4.8-10.8) K/uL RBC (4.7-6.1) M/uL Hgb (14.0-18.0) g/dL Hct (42-52) % MCV (80-100) fL MCH (25-34) pg MCHC (32-36) g/dL RDW Std Deviation (36.4-46.3) fL RDW Coeff of Michelle (11.5-14.5) % Plt Count (130-400) K/uL MPV (7.4-10.4) fL Immature Gran % (Auto) % Neut % (Auto) % Lymph % (Auto) % Candler % (Auto) % Eos % (Auto) % Baso % (Auto) % Immature Gran # (Auto) (0.00-0.02) K/uL Neut # (Auto) (1.4-6.5) K/uL Lymph # (Auto) (1.2-3.4) K/uL Candler # (Auto) (0.11-0.59) K/uL Eos # (Auto) (0-0.5) K/uL Baso # (Auto) (0-0.2) K/uL Absolute Nucleated RBC (0-0) K/uL Nucleated RBC % (auto) % PT (9.0-12.0) Seconds INR (0.9-1.1) APTT (21.0-31.0) Seconds PTT Ratio Sodium (136-145) mmol/L Potassium (3.5-5.1) mmol/L Chloride (98-107) mmol/L Carbon Dioxide (21-32) mmol/L Anion Gap (3-11) BUN (7-18) mg/dl Creatinine (0.6-1.4) mg/dl Est Cr Clr Drug Dosing ml/min Est GFR ( Amer) Est GFR (Non-Af Amer) BUN/Creatinine Ratio (10-20) Glucose (70-99) mg/dl POC Glucose (70-99) mg/dl Lactate 0.9 (0.4-2.0) mmol/L Calcium (8.5-10.1) mg/dl Magnesium (1.8-2.4) mg/dl Total Bilirubin (0.2-1) mg/dl AST (15-37) U/L ALT (12-78) U/L Alkaline Phosphatase (45-117) U/L Troponin I (0-0.045) ng/ml NT-Pro-B Natriuret Pep (0-450) pg/ml Total Protein (6.4-8.2) gm/dl Albumin (3.4-5.0) gm/dl Globulin (2.5-4.0) gm/dl Albumin/Globulin Ratio (0.9-2) Procalcitonin 0.29 (0-0.5) ng/ml Urine Color Urine Appearance (Clear) Urine pH (4.5-7.5) Ur Specific [place] (1.000-1.030) Urine Protein (Negative) Urine Glucose (UA) (Negative) Urine Ketones (Negative) Urine Blood (Negative) Urine Nitrite (Negative) Urine Bilirubin (Negative) Urine Urobilinogen (Negative) Ur Leukocyte Esterase (Negative) Urine WBC (Auto) (0-5) /hpf Urine RBC (Auto) (0-4) /hpf U Hyaline Cast (Auto) (0-5) /lpf U Epithel Cells (Auto) (0-5) /lpf Urine Bacteria (Auto) (Negative) Influenza Type A (PCR) Neg for Influ A (Neg) Influenza Type B (PCR) Neg for Influ B (Neg) 03/29/19 03/29/19 Range/Units 15:30 20:03 WBC (4.8-10.8) K/uL RBC (4.7-6.1) M/uL Hgb (14.0-18.0) g/dL Hct (42-52) % MCV (80-100) fL MCH (25-34) pg MCHC (32-36) g/dL RDW Std Deviation (36.4-46.3) fL RDW Coeff of Michelle (11.5-14.5) % Plt Count (130-400) K/uL MPV (7.4-10.4) fL Immature Gran % (Auto) % Neut % (Auto) % Lymph % (Auto) % Cand[place] % (Auto) % Eos % (Auto) % Baso % (Auto) % Immature Gran # (Auto) (0.00-0.02) K/uL Neut # (Auto) (1.4-6.5) K/uL Lymph # (Auto) (1.2-3.4) K/uL Candler # (Auto) (0.11-0.59) K/uL Eos # (Auto) (0-0.5) K/uL Baso # (Auto) (0-0.2) K/uL Absolute Nucleated RBC (0-0) K/uL Nucleated RBC % (auto) % PT (9.0-12.0) Seconds INR (0.9-1.1) APTT (21.0-31.0) Seconds PTT Ratio Sodium (136-145) mmol/L Potassium (3.5-5.1) mmol/L Chloride (98-107) mmol/L Carbon Dioxide (21-32) mmol/L Anion Gap (3-11) BUN (7-18) mg/dl Creatinine (0.6-1.4) mg/dl Est Cr Clr Drug Dosing ml/min Est GFR ( Amer) Est GFR (Non-Af Amer) BUN/Creatinine Ratio (10-20) Glucose (70-99) mg/dl POC Glucose 124 H (70-99) mg/dl Lactate (0.4-2.0) mmol/L Calcium (8.5-10.1) mg/dl Magnesium (1.8-2.4) mg/dl Total Bilirubin (0.2-1) mg/dl AST (15-37) U/L ALT (12-78) U/L Alkaline Phosphatase (45-117) U/L Troponin I (0-0.045) ng/ml NT-Pro-B Natriuret Pep (0-450) pg/ml Total Protein (6.4-8.2) gm/dl Albumin (3.4-5.0) gm/dl Globulin (2.5-4.0) gm/dl Albumin/Globulin Ratio (0.9-2) Procalcitonin (0-0.5) ng/ml Urine Color Yellow Urine Appearance Clear (Clear) Urine pH 5.0 (4.5-7.5) Ur Specific [place] 1.021 (1.000-1.030) Urine Protein 3+ H (Negative) Urine Glucose (UA) 1+ H (Negative) Urine Ketones Negative (Negative) Urine Blood Negative (Negative) Urine Nitrite Negative (Negative) Urine Bilirubin Negative (Negative) Urine Urobilinogen Negative (Negative) Ur Leukocyte Esterase Negative (Negative) Urine WBC (Auto) 1-5 (0-5) /hpf Urine RBC (Auto) 5-10 H (0-4) /hpf U Hyaline Cast (Auto) 5-10 H (0-5) /lpf U Epithel Cells (Auto) 10-20 H (0-5) /lpf Urine Bacteria (Auto) Negative (Negative) Influenza Type A (PCR) (Neg) Influenza Type B (PCR) (Neg) Diagnostic Findings XR chest 1V portable CLINICAL HISTORY: SEPSIS COMPARISON STUDY: Chest radiograph November 27, 2018. FINDINGS: There are suspected trace bilateral pleural effusions. There is no pneumothorax. Moderate enlargement of the cardiac silhouette is noted. This is increased when compared to prior exam. There is interstitial thickening. Multiple bilateral airspace opacities are noted. IMPRESSION: 1. Interstitial thickening suggestive of interstitial pulmonary edema. 2. Bilateral airspace opacities which may reflect alveolar edema or superimposed pneumonia. Radiographic follow up to ensure resolution is recommended. 3. Suspected trace bilateral pleural effusions. 4. Moderate enlargement of the cardiac silhouette. ACT 112: Negative or not required by law. Electronically signed by: Carl Terry M.D. 03/29/2019 2:55 PM Dictated: 03/29/19 1452 Transcribed: 03/29/[address] chest wo con CT DOSE: 375.50 mGycm HISTORY: Dyspnea hypoxia TECHNIQUE: Multiaxial CT images of the chest were performed without contrast. A dose lowering technique was utilized adhering to the principles of ALARA. COMPARISON: None. FINDINGS: Diffuse patchy bilateral parenchymal infiltrative change. This predominates in the mid-upper lung regions bilaterally. There are small bilateral pleural effusions. Findings of mild dependent basilar atelectatic change. Trace amount of pericardial fluid. IMPRESSION: 1. Findings consistent with diffuse patchy parenchymal infiltrative change. 2. Small bilateral pleural effusions. ACT 112: Negative or not required by law. The above report was generated using voice recognition software. It may contain grammatical, syntax or spelling errors. Electronically signed by: Nestor Recinos M.D. 03/29/2019 7:15 PM Dictated: 03/29/191913 Transcribed: 03/29/191913 ECG Additional Comments: ST at 116, normal axis, IS=157, QRS=78, BQq=606, diffuse ST-T changes Code Status & VTE Plan Code Status FULL CODE VTE Prophylaxis Plan VTE Prophylaxis will be ordered: Yes PG Care Time/CCT Total # of Minutes Spent Total Time Spent with Patient: Total time spent is greater than 50% in coordination of care (as documented) at patient's floor/unit and/or counseling patient: Coding Level of Care Code 60882 Initial Inpt Care Lvl 3 Diagnoses Sepsis A41.9 Sepsis acute organ dysfunction status: unspecified Sepsis type: sepsis due to unspecified organism Hypoxia R09.02 Diabetes E10.22; N18.4 Diabetes mellitus type: type 1 Diabetes mellitus complication status: with kidney complications Diabetes mellitus complication detail: with chronic kidney disease Chronic kidney disease stage: stage 4 (severe) HTN (hypertension) I15.0 Hypertension type: renovascular hypertension End-stage renal failure with renal transplant N18.6; Z94.0 Moderate obstructive sleep apnea G47.33 Gout M10.9 Gout site: unspecified site Gout etiology: unspecified cause Chronicity: unspecified Gastroesophageal reflux K21.9 Esophagitis presence: esophagitis presence not specified Dyslipidemia E78.5 CAD in [place] artery I25.10 Avascular necrosis of bone of right hip M87.051 Depression F33.9 Depression Type: major depressive disorder Major depression recurrence: recurrent Active/Remission status: remission status unspecified (1) Sepsis Sepsis acute organ dysfunction status: unspecified Sepsis type: sepsis due to unspecified organism Qualified Code(s): A41.9 - Sepsis, unspecified organism (2) Diabetes Diabetes mellitus type: type 1 Diabetes mellitus complication status: with kidney complications Diabetes mellitus complication detail: with chronic kidney disease Chronic kidney disease stage: stage 4 (severe) Qualified Code(s): E10.22 - Type 1 diabetes mellitus with diabetic chronic kidney disease; N18.4 - Chronic kidney disease, stage 4 (severe) (3) HTN (hypertension) Hypertension type: renovascular hypertension Qualified Code(s): I15.0 - Denis vascular hypertension (4) Gout Gout site: unspecified site Gout etiology: unspecified cause Chronicity: unspecified Qualified Code(s): M10.9 - Gout, unspecified (5) Gastroesophageal reflux Esophagitis presence: esophagitis presence not specified Qualified Code(s): K21.9 - Gastro-esophageal reflux disease without esophagitis (6) Depression Depression Type: major depressive disorder Major depression recurrence: recurrent Active/Remission status: remission status unspecified Qualified Code(s): F33.9 - Major depressive disorder, recurrent, unspecified
[2019-03-29] MEDS: ACETAMINOPHEN 500 MG TAB PO SCH (21:02)
[2019-03-29] MEDS: DOXYCYCLINE HYCLATE 50 MG CAP PO SCH (21:02)
[2019-03-29] MEDS: METOPROLOL SUCC 50MG EXT REL TAB PO SCH (21:02)
[2019-03-29] MEDS: PREGABALIN 75 MG CAP PO SCH (21:02)
[2019-03-29] MEDS: PANTOprazole 40 MG TAB PO SCH (21:02)
[2019-03-29] MEDS: SERTRALINE HCL 50 MG TABLET PO SCH (21:02)
[2019-03-29] MEDS: allopurinoL 300 MG TAB PO SCH (21:03)
[2019-03-29] MEDS: SIROLIMUS 0.5 MG TABLET PO SCH (21:03)
[2019-03-29] MEDS: DOCUSATE SODIUM 100 MG CAP PO SCH (21:03)
[2019-03-29] MEDS: ATORVASTATIN 40 MG TAB PO SCH (21:03)
[2019-03-29] MEDS: HEPARIN SOD 5,000 UNIT/0.5 ML VIAL SQ SCH (21:03)
[2019-03-29] MEDS: TACROLIMUS 1 MG CAP PO SCH (21:03)
[2019-03-29] MEDS: predniSONE 5 MG TAB PO SCH (21:03)
[2019-03-29] MEDS: FERROUS GLUCONATE 324 MG TAB PO SCH (21:03)
[2019-03-29] MEDS: ASPIRIN 81 MG ECTAB PO SCH (21:03)
[2019-03-30] MEDS: CEFEPIME 1,000 MG in SYRINGE 0 ML IV SCH ×2 (05:05→15:05)
[2019-03-30] MEDS: HEPARIN SOD 5,000 UNIT/0.5 ML VIAL SQ SCH ×3 (05:05→21:35)
[2019-03-30 06:42] LABS: Basophils # (auto) 0.01 K/uL (0-0.2); Basophils % (auto) 0.1 %; Eosinophils # (auto) 0.11 K/uL (0-0.5); Eosinophils % (auto) 1.3 %; Hematocrit (blood only) 24.7 % (42-52); Hemoglobin 7.8 g/dL (14.0-18.0); Immature Granulocytes # (auto) 0.03 K/uL (0.00-0.02); Immature Granulocytes % (auto) 0.3 %; Lymphocytes # (auto) 1.18 K/uL (1.2-3.4); Lymphocytes % (auto) 13.7 %; Mean Corpuscular Hemoglobin 26.7 pg (25-34); Mean Corpuscular Hgb Conc 31.6 g/dL (32-36); Mean Corpuscular Volume 84.6 fL (80-100); Mean Platelet Volume 11.4 fL (7.4-10.4); Monocytes # (auto) 0.54 K/uL (0.11-0.59); Monocytes % (auto) 6.3 %; Neutrophils # (auto) 6.76 K/uL (1.4-6.5); Neutrophils % (auto) 78.3 %; Platelet Count 214 K/uL (130-400); RDW Coefficient of Variation 16.5 % (11.5-14.5); RDW Standard Deviation 51.1 fL (36.4-46.3); Red Blood Count 2.92 M/uL (4.7-6.1); White Blood Count 8.63 K/uL (4.8-10.8)
[2019-03-30 07:15] LABS: Hypochromasia Present
[2019-03-30 07:16] LABS: Alanine Aminotransferase 12 U/L (12-78); Aspartate Aminotransferase 22 U/L (15-37); BUN Creatinine Ratio 21.1 (10-20); Bilirubin Direct < 0.1 mg/dl (0-0.2); Blood Urea Nitrogen 74 mg/dl (7-18); Calcium 8.8 mg/dl (8.5-10.1); Carbon Dioxide 25 mmol/L (21-32); Chloride 111 mmol/L (98-107); Creatinine Clr Calc Pharmacy 23.8 ml/min; Est GFR (African American) 23.3; Est GFR (Non-African American) 20.1; Glucose 99 mg/dl (70-99); Potassium 5.2 mmol/L (3.5-5.1); Sodium 142 mmol/L (136-145)
[2019-03-30 07:19] LABS: Alkaline Phosphatase 85 U/L (45-117); Bilirubin,Total 0.3 mg/dl (0.2-1); Total Protein 6.2 gm/dl (6.4-8.2)
--- NOTE | 2019-03-30 07:22 | XRay Report ---
XR chest 1V portable HISTORY: Shortness of breath. edema COMPARISON: Chest 03/29/2019. FINDINGS: Bilateral patchy airspace opacities have significantly improved in the interval. The heart remains mildly enlarged. Old, healed left-sided rib fracture. No pleural effusions. No pneumothorax. IMPRESSION: Interval improvement in the patchy bilateral airspace opacities. ACT 112: Negative or not required by law. Electronically signed by: Romario Carpenter M.D. 03/30/2019 7:21 AM
--- NOTE | 2019-03-30 08:03 | Hospitalist Progress Note ---
Date of Service March 30, 2019 Assessment & Plan (1) Sepsis: Continue admit to PCU Blood cultures negative in 24 hours follow cultures, blood, urine and sputum Discontinued vancomycin since creatinine is elevated and continued with cefepime. Added doxycycline 100 mg p.o. twice daily for possible pneumonia. Supplemental O2 as needed (2) Hypoxia: Acute respiratory failure most likely multifactorial -pneumonia, pulmonary edema, associated with congestive heart failure likely diastolic. Volume overload Dr. Samson recommended to start 80 mg of Lasix IV. Follow daily weight Strict in and out Restrict p.o. fluid to 1200 mils per day continue monitoring BMP Monitor UOP Treatment of suspected PNA as above Supplemental O2 as needed to maintain saturations 94% (3) Diabetes: Longstanding history of Type-I DM. Insulin pump in place. Blood sugar on arrival = 68. Patient with no symptoms, states he doesn't get symptomatic until blood sugar drops to the 40's. BS checks qAC/HS. Will maintain insulin pump in place at current settings If patient continues to be hypoglycemic or displays erratic blood sugars will discontinue pump and manage with basal/bolus regimen Carb counting diet as tolerated Continue Lyrica for diabetic polyneuropathy (4) HTN (hypertension): Blood pressure markedly elevated on arrival. Has since improved. He reports his baseline pressure tends to be 145/90 Continue Amlodipine Continue Metoprolol Continue to monitor (5) End-stage renal failure with renal transplant: Patient with renal transplant in place. BUN and Cr are near baseline. UA with 3+ proteinuria and glucose, patient has had proteinuria in the past. He follows with Dr. Mali Samson saw patient today and recommended to start Lasix 80 mg IV daily. Follow closely urine output creatinine and GFR. Continue Tacrolimus at home dosage. If patient's clinical condition deteriorates will hold and manage with high dose steroids. Continue daily prednisone Continue to monitor BUN/Cr, electrolytes and UOP Continue Doxycycline (6) Moderate obstructive sleep apnea: Chronic. Patient reports compliance with home CPAP Continue CPAP (7) Gout: Chronic. Stable Continue Allopurinol (8) Gastroesophageal reflux: Chronic. Stable, Protonix on hold because it can adversely affect the kidneys. (9) Dyslipidemia: Chronic. Stable Continue Atorvastatin (10) CAD in [place] artery: Chronic. Patient denies chest discomfort. Troponin x 1 negative Continue ASA, Plavix, Atorvastatin, Metoprolol Telemetry monitoring (11) Avascular necrosis of bone of right hip: s/p MIGUEL performed on 03/17/19. Patient is doing well post-operatively Pain control Plan to return to [facility] for continued rehab (12) Depression: Chronic. Continue Sertraline Subjective Patient seen and examined at the bedside. He is slowly improving but still complains of shortness of breath. Patient was febrile in the ER, but afebrile overnight. P.o. intake slowly improving. Case is discussed with and he recommended to start patient on Lasix approximately 80 mg IV to induce diuresis. Patient denies fever, chills, chest pain, abdominal pain, frequency, urgency. Review of Systems Review of Systems: All systems reviewed & are unremarkable except as noted in HPI & below Physical Exam Constitutional: WD/WN, vitals as above well developed and + obese Eyes: PERRL, conjunctivae normal, anicteric sclerae ENMT: external ear and nose normal, oropharynx normal Neck: trachea midline, no thyromegaly Respiratory: normal respiratory effort Auscultation: + crackles and + wheezes Cardiovascular: Rate/Rhythm: regular rate Palpation: + palpable S3 Vessels: + JVD and dorsalis pedis pulses present Extremities: + pedal edema (Of the right lower extremity. Patient is amputated below the knee left lower extremity) Gastrointestinal (Abdomen): normal bowel sounds, soft, nontender, no hepat osplenomegaly Musculoskeletal: Left lower extremity amputee below the knee Skin: no rashes, warm and dry Neurologic: patellar DTR's 2+ bilat, sensation intact Lymphatic: no cervical or axillary lymphadenopathy Results & Data Vital Signs (Past 12 Hours) Vital Signs Temp Pulse Pulse Resp BP Pulse Ox 03/30/19 07:30 36.9 C 92 H 16 161/103 H 98 03/30/19 03:11 37.1 C 92 H 18 150/97 H 94 03/30/19 00:52 103 H 03/29/19 23:08 37.1 C 104 H 18 148/102 H 94 03/29/19 21:20 102 H 16 97 PG Care Time/CCT Total # of Minutes Spent Total Time Spent with Patient: Total time spent is greater than 50% in coordination of care (as documented) at patient's floor/unit and/or counseling patient: Coding Level of Care Code 11169 Subseq Hosp Care Lvl 3 Diagnoses Sepsis A41.9 Sepsis acute organ dysfunction status: unspecified Sepsis type: sepsis due to unspecified organism Hypoxia R09.02 Diabetes E10.22; N18.4 Chronic kidney disease stage: stage 4 (severe) Diabetes mellitus complication detail: with chronic kidney disease Diabetes mellitus complication status: with kidney complications Diabetes mellitus type: type 1 HTN (hypertension) I15.0 Hypertension type: renovascular hypertension End-stage renal failure with renal transplant N18.6; Z94.0 Moderate obstructive sleep apnea G47.33 Gout M10.9 Chronicity: unspecified Gout etiology: unspecified cause Gout site: unspecified site Gastroesophageal reflux K21.9 Esophagitis presence: esophagitis presence not specified Dyslipidemia E78.5 CAD in [place]ing artery I25.10 Avascular necrosis of bone of right hip M87.051 Depression F33.9 Active/Remission status: remission status unspecified Depression Type: major depressive disorder Major depression recurrence: recurrent (1) Diabetes Chronic kidney disease stage: stage 4 (severe) Diabetes mellitus complication detail: with chronic kidney disease Diabetes mellitus complication status: with kidney complications Diabetes mellitus type: type 1 Qualified Code(s): E10.22 - Type 1 diabetes mellitus with diabetic chronic kidney disease; N18.4 - Chronic kidney disease, stage 4 (severe) (2) Gout Chronicity: unspecified Gout etiology: unspecified cause Gout site: unspecified site Qualified Code(s): M10.9 - Gout, unspecified (3) Depression Active/Remission status: remission status unspecified Depression Type: major depressive disorder Major depression recurrence: recurrent Qualified Code(s): F33.9 - Major depressive disorder, recurrent, unspecified (4) Sepsis Sepsis acute organ dysfunction status: unspecified Sepsis type: sepsis due to unspecified organism Qualified Code(s): A41.9 - Sepsis, unspecified organism (5) Gastroesophageal reflux Esophagitis presence: esophagitis presence not specified Qualified Code(s): K21.9 - Gastro-esophageal reflux disease without esophagitis (6) HTN (hypertension) Hypertension type: renovascular hypertension Qualified Code(s): I15.0 - Renovascular hypertension
[2019-03-30] MEDS: TACROLIMUS 1 MG CAP PO SCH ×2 (08:18→21:33)
[2019-03-30] MEDS: CLOPIDOGREL BISULFATE 75 MG TAB PO SCH (08:18)
[2019-03-30] MEDS: DOCUSATE SODIUM 100 MG CAP PO SCH ×2 (08:19→21:33)
[2019-03-30] MEDS: FERROUS GLUCONATE 324 MG TAB PO SCH ×2 (08:19→17:01)
[2019-03-30] MEDS: DOXYCYCLINE HYCLATE 50 MG CAP PO SCH (08:19)
[2019-03-30] MEDS: ACETAMINOPHEN 500 MG TAB PO SCH ×3 (08:19→21:33)
[2019-03-30] MEDS: PREGABALIN 75 MG CAP PO SCH ×2 (08:20→21:33)
[2019-03-30] MEDS ORDERED: DOXYCYCLINE HYCLATE 50 MG CAP PO ONE (10:00)
[2019-03-30] MEDS: FUROSEMIDE 80 MG in SYRINGE 0 ML IV SCH (11:09)
[2019-03-30] MEDS ORDERED: INSULIN ASPART 100 UNITS/ML VIAL SC PRN (15:07)
[2019-03-30] MEDS ORDERED: VANCOMYCIN HCL 1,000 MG in SODIUM CHLORIDE 0.9% 250 ML IV SCH (16:00)
[2019-03-30] MEDS: NOVOLOG INSULIN PUMP SCH ×2 (17:00→21:35)
[2019-03-30] MEDS: SIROLIMUS 0.5 MG TABLET PO SCH (21:33)
[2019-03-30] MEDS: ASPIRIN 81 MG ECTAB PO SCH (21:33)
[2019-03-30] MEDS: DOXYCYCLINE HYCLATE 100 MG CAP PO SCH (21:33)
[2019-03-30] MEDS: allopurinoL 300 MG TAB PO SCH (21:33)
[2019-03-30] MEDS: ATORVASTATIN 40 MG TAB PO SCH (21:33)
[2019-03-30] MEDS: predniSONE 5 MG TAB PO SCH (21:33)
[2019-03-30] MEDS: SERTRALINE HCL 50 MG TABLET PO SCH (21:33)
[2019-03-30] MEDS: METOPROLOL SUCC 50MG EXT REL TAB PO SCH (21:33)
[2019-03-30] MEDS: PANTOprazole 40 MG TAB PO SCH (21:34)
[2019-03-31] MEDS: LEVALBUTEROL HCL 0.63 MG/3 ML NEB NEB PRN ×2 (00:47→21:55)
[2019-03-31] MEDS: CEFEPIME 1,000 MG in SYRINGE 0 ML IV SCH (03:01)
[2019-03-31 06:30] LABS: Appearance Urine Clear (Clear); Bilirubin Urine Negative (Negative); Blood Urine Trace (Negative); Color Urine Yellow; Glucose Urine UA 1+ (Negative); Ketones Urine Trace (Negative); Leukocyte Esterase Urine Negative (Negative); Nitrite Urine Negative (Negative); Protein Urine 2+ (Negative); RBC Urine Automated 0-4 /hpf (0-4); Specific Gravity Urine 1.019 (1.000-1.030); Urobilinogen Urine Negative (Negative)
[2019-03-31 06:43] LABS: Cast Urine Automated 0 /lpf (0-5); Mucus Urine Present (None Prsent)
[2019-03-31 06:44] LABS: Bacteria Urine Automated 1+ (Negative)
[2019-03-31 07:08] LABS: Calcium 8.7 mg/dl (8.5-10.1); Creatinine Clr Calc Pharmacy 21.8 ml/min; Est GFR (African American) 21.4; Est GFR (Non-African American) 18.5; Potassium 5.1 mmol/L (3.5-5.1)
[2019-03-31 07:11] LABS: Albumin Globulin Ratio 0.5 (0.9-2); Bilirubin,Total 0.3 mg/dl (0.2-1); Globulin 4.3 gm/dl (2.5-4.0); Total Protein 6.3 gm/dl (6.4-8.2)
[2019-03-31] MEDS: HEPARIN SOD 5,000 UNIT/0.5 ML VIAL SQ SCH ×3 (07:11→20:18)
[2019-03-31] MEDS: FERROUS GLUCONATE 324 MG TAB PO SCH ×2 (08:13→18:20)
[2019-03-31] MEDS: DOXYCYCLINE HYCLATE 100 MG CAP PO SCH ×2 (08:13→20:16)
[2019-03-31] MEDS: CLOPIDOGREL BISULFATE 75 MG TAB PO SCH (08:13)
[2019-03-31] MEDS: FUROSEMIDE 80 MG in SYRINGE 0 ML IV SCH (08:13)
[2019-03-31] MEDS: TACROLIMUS 1 MG CAP PO SCH ×2 (08:13→20:12)
[2019-03-31] MEDS: DOCUSATE SODIUM 100 MG CAP PO SCH ×2 (08:13→20:10)
[2019-03-31] MEDS: ACETAMINOPHEN 500 MG TAB PO SCH ×3 (08:14→20:16)
[2019-03-31] MEDS: PREGABALIN 75 MG CAP PO SCH ×2 (08:17→20:11)
[2019-03-31] MEDS: NOVOLOG INSULIN PUMP SCH ×4 (08:18→21:44)
--- NOTE | 2019-03-31 13:52 | Internal Med Progress Note ---
Date of Service March 31, 2019 Assessment & Plan (1) Encounter for rehabilitation evaluation: Nice improvement seen. Given the tempo of the onset and improvement in pulmonary symptoms; flash edema is probably the primary etiology. We are ready to restart his therapy course at [facility]. Will emphasize fluid status and monitor renal performance closely. Subjective He is feeling much better. On RA and comfortable. Weight down several Kg. I suspect primary issue that resulted in return was flash pulmonary edema triggered by weight increase, pain with associated B/P elevation, and underlying delicate fluid-renal/cardiac performance status. He is anxious to return and complete his therapy. Upon return will continue with medication changes as recommended by nephrology. Looks like weight target of 70Kg reasonable. Review of Systems Review of Systems: No to be much better. Physical Exam Physical Exam: Vitals--stable HEENT--No changes Respiratory--comfortable and clearing Cardio--volume status looking good GI--no target Musculo--no change Neuro--no change. Results & Data Vital Signs (Past 12 Hours) Vital Signs Temp Pulse Pulse Resp BP Pulse Ox 03/31/19 11:23 36.7 C 96 H 18 134/103 H 97 03/31/19 07:30 36.8 C 87 18 161/101 H 99 03/31/19 03:02 102 H 20 120/77 97
[2019-03-31] MEDS ORDERED: PHARMACY GLYCEMIC MGMT CONSULT STA (15:43)
[2019-03-31] MEDS ORDERED: PHARMACY GLYCEMIC MGMT CONSULT PRN (15:43)
[2019-03-31] MEDS: CEFDINIR 300 MG CAP PO SCH (18:20)
[2019-03-31] MEDS: ATORVASTATIN 40 MG TAB PO SCH (20:10)
[2019-03-31] MEDS: ASPIRIN 81 MG ECTAB PO SCH (20:10)
[2019-03-31] MEDS: predniSONE 5 MG TAB PO SCH (20:11)
[2019-03-31] MEDS: SIROLIMUS 0.5 MG TABLET PO SCH (20:13)
[2019-03-31] MEDS: PANTOprazole 40 MG TAB PO SCH (20:13)
[2019-03-31] MEDS: METOPROLOL SUCC 50MG EXT REL TAB PO SCH (20:15)
[2019-03-31] MEDS: allopurinoL 300 MG TAB PO SCH (20:17)
[2019-03-31] MEDS: SERTRALINE HCL 50 MG TABLET PO SCH (20:17)
--- NOTE | 2019-03-31 21:57 | Hospitalist Progress Note ---
Date of Service March 31, 2019 Assessment & Plan (1) Acute respiratory failure with hypoxia: Likely combination of pulmonary edema/volume overload from CKD +/- pneumonia process (patient had well-documented fever at time of admission). O2 has been weaned off. Pulmonary congestion much improved clinically and radiographically. (2) Volume overload: Likely pulmonary edema in setting of advanced CKD. IMPROVED s/p multiple doses of IV lasix since admission. Creatinine is stable. Has some rales on exam today - will cont IV lasix at least another day. (3) Pneumonia: suspected had fevers at time of admission cont abx but d/c IV and change to PO cefdinir and doxy to complete 7 days in total of antibiotic therapy overall improved (4) Sepsis: likely due to pneumonia process see above blood cx's neg urine cx pending but doubt UTI sepsis clinically resolved (5) Diabetes: Longstanding history of Type-I DM. Insulin pump in place. Glycemic control has worsened last 24 hours likely due to improved appetite, etc. Will ask pharmacy to assist with management; may need to change to basal-bolus SC regimen in interim for improved control. Patient not adept at his pump based on my assessment today. (6) HTN (hypertension): Satisfactory control. Continue Amlodipine Continue Metoprolol (7) End-stage renal failure with renal transplant: Patient with renal transplant in place. follows with Dr. Samson Continue Tacrolimus at home dosage. Continue daily prednisone BMP daily baseline CrCl 20s c/w CKD stage 4 (8) Moderate obstructive sleep apnea: Continue CPAP (9) Gout: Chronic. Stable Continue Allopurinol (10) Gastroesophageal reflux: no issues at this time PPI on hold - should we swap PPI indefinitely for H2 raine? (due to concern for PPI adverse effects on renal function??) will d/w Dr Samson (11) Dyslipidemia: Chronic. Stable Continue Atorvastatin (12) CAD in [place] artery: Continue ASA, Plavix, Atorvastatin, Metoprolol no ischemic symptoms at this time (13) Avascular necrosis of bone of right hip: s/p THR performed on 03/17/[address] Bill Lima. Incision well-healed. This is about the time that ernst are typically removed. Will ask Dr Lima or his partners to see Mr Dalton for incision check prior to discharge. Cont DVT proph. Pain control. Plan to return to [facility] for continued rehab following this admission. (14) Depression: Continue Sertraline patient's 5yo son several years ago - still dealing with emotions of such (15) DVT prophylaxis: currently on heparin SC pt's renal transplant status and tacrolimus use constitutes high-risk medication and need for close surveillance overall improving nicely back to rehab next 1-2 days? Subjective patient overall feeling much better. dyspnea improved. denies orthopnea. no cough. no sputum. eating is good. insulin pump is in place - basal insulin is about 14-15 units/24 hours; carb ratio 1 unit per 30 grams of carbs? tele overnight wnl. only complaint is that of right hip discomfort from recent right hip replacement. Review of Systems Constitutional: no fever, no chills, no fatigue and no anorexia Respiratory: no cough, no dyspnea and no dyspnea on exertion Cardiovascular: no chest pain Gastrointestinal: no abdominal pain, no nausea, no vomiting and no diarrhea/loose stools Physical Exam Constitutional: well developed and well nourished; no acute distress and no altered mental status ENMT: external ear and nose normal, oropharynx normal Respiratory: no respiratory distress Auscultation: + crackles (fine, bases); no wheezes Cardiovascular: Rate/Rhythm: regular rate and regular rhythm Heart Sounds: normal S1, normal S2 and + murmur (2/6 heard all over chest (systolic)) Vessels: posterior tibial pulses present (right foot - 2+) and dorsalis pedis pulses present (right foot - 2+); no JVD Gastrointestinal (Abdomen): normal bowel sounds, soft, nontender, no hepatosplenomegaly Musculoskeletal: right hip lateral aspect - incision clean, no drainage, no redness, ernst intact left BKA Skin: + pallor Psychiatric: Orientation: alert and oriented x 3 Results & Data Vital Signs (Past 12 Hours) Vital Signs Temp Pulse Pulse Resp BP Pulse Ox 03/31/19 21:54 96 H 16 97 03/31/19 16:00 105 H 03/31/19 15:46 36.8 C 94 H 19 150/90 H 95 03/31/19 11:23 36.7 C 96 H 18 134/103 H 97 Laboratory Results Laboratory Results - last 24 hr 03/31/19 03/31/19 03/31/19 06:08 06:18 07:28 Sodium 139 Potassium 5.1 Chloride 109 H Carbon Dioxide 24 Anion Gap 6.0 BUN 75 H Creatinine 3.76 H Est Cr Clr Drug Dosing 21.8 Est GFR ( Amer) 21.4 Est GFR (Non-Af Amer) 18.5 BUN/Creatinine Ratio 20.0 Glucose 233 H POC Glucose 242 H Calcium 8.7 Total Bilirubin 0.3 AST 19 ALT 14 Alkaline Phosphatase 91 Total Protein 6.3 L Albumin 2.0 L Globulin 4.3 H Albumin/Globulin Ratio 0.5 L Urine Color Yellow Urine Appearance Clear Urine pH 5.0 Ur Specific [place] 1.019 Urine Protein 2+ H Urine Glucose (UA) 1+ H Urine Ketones Trace H Urine Blood Trace H Urine Nitrite Negative Urine Bilirubin Negative Urine Urobilinogen Negative Ur Leukocyte Esterase Negative Urine WBC (Auto) 1-5 Urine RBC (Auto) 0-4 U Hyaline Cast (Auto) 0 U Epithel Cells (Auto) 5-10 H Urine Bacteria (Auto) 1+ H Urine Mucus Present A Urine Yeast Not Reportable 03/31/19 03/31/19 03/31/19 11:22 16:10 19:58 Sodium Potassium Chloride Carbon Dioxide Anion Gap BUN Creatinine Est Cr Clr Drug Dosing Est GFR ( Amer) Est GFR (Non-Af Amer) BUN/Creatinine Ratio Glucose POC Glucose 325 H* 264 H 130 H Calcium Total Bilirubin AST ALT Alkaline Phosphatase Total Protein Albumin Globulin Albumin/Globulin Ratio Urine Color Urine Appearance Urine pH Ur Specific [place] Urine Protein Urine Glucose (UA) Urine Ketones Urine Blood Urine Nitrite Urine Bilirubin Urine Urobilinogen Ur Leukocyte Esterase Urine WBC (Auto) Urine RBC (Auto) U Hyaline Cast (Auto) U Epithel Cells (Auto) Urine Bacteria (Auto) Urine Mucus Urine Yeast 03/31/19 21:01 Sodium Potassium Chloride Carbon Dioxide Anion Gap BUN Creatinine Est Cr Clr Drug Dosing Est GFR ( Amer) Est GFR (Non-Af Amer) BUN/Creatinine Ratio Glucose POC Glucose 111 H Calcium Total Bilirubin AST ALT Alkaline Phosphatase Total Protein Albumin Globulin Albumin/Globulin Ratio Urine Color Urine Appearance Urine pH Ur Specific [place] Urine Protein Urine Glucose (UA) Urine Ketones Urine Blood Urine Nitrite Urine Bilirubin Urine Urobilinogen Ur Leukocyte Esterase Urine WBC (Auto) Urine RBC (Auto) U Hyaline Cast (Auto) U Epithel Cells (Auto) Urine Bacteria (Auto) Urine Mucus Urine Yeast blood cx's neg to date PG Care Time/CCT Total # of Minutes Spent Total Time Spent with Patient: Total time spent is greater than 50% in coordination of care (as documented) at patient's floor/unit and/or counseling patient: Coding Level of Care Code 21477 Subseq Hosp Care Lvl 3 Diagnoses Acute respiratory failure with hypoxia J96.01 Volume overload E87.70 Hypervolemia type: unspecified Pneumonia J18.9 Pneumonia type: due to unspecified organism Laterality: bilateral Lung location: unspecified part of lung Sepsis A41.9 Sepsis acute organ dysfunction status: unspecified Sepsis type: sepsis due to unspecified organism Diabetes E10.22; N18.4 Chronic kidney disease stage: stage 4 (severe) Diabetes mellitus complication detail: with chronic kidney disease Diabetes mellitus complication status: with kidney complications Diabetes mellitus type: type 1 HTN (hypertension) I15.0 Hypertension type: renovascular hypertension End-stage renal failure with renal transplant N18.6; Z94.0 Moderate obstructive sleep apnea G47.33 Gout M10.9 Chronicity: unspecified Gout etiology: unspecified cause Gout site: unspecified site Gastroesophageal reflux K21.9 Esophagitis presence: esophagitis presence not specified Dyslipidemia E78.5 CAD in [place] artery I25.10 Avascular necrosis of bone of right hip M87.051 Depression F33.9 Active/Remission status: remission status unspecified Depression Type: major depressive disorder Major depression recurrence: recurrent DVT prophylaxis Z29.9 (1) Diabetes Chronic kidney disease stage: stage 4 (severe) Diabetes mellitus complication detail: with chronic kidney disease Diabetes mellitus complication status: with kidney complications Diabetes mellitus type: type 1 Qualified Code(s): E10.22 - Type 1 diabetes mellitus with diabetic chronic kidney disease; N18.4 - Chronic kidney disease, stage 4 (severe) (2) Gout Chronicity: unspecified Gout etiology: unspecified cause Gout site: unspecified site Qualified Code(s): M10.9 - Gout, unspecified (3) Depression Active/Remission status: remission status unspecified Depression Type: major depressive disorder Major depression recurrence: recurrent Qualified Code(s): F33.9 - Major depressive disorder, recurrent, unspecified (4) Sepsis Sepsis acute organ dysfunction status: unspecified Sepsis type: sepsis due to unspecified organism Qualified Code(s): A41.9 - Sepsis, unspecified organism (5) Gastroesophageal reflux Esophagitis presence: esophagitis presence not specified Qualified Code(s): K21.9 - Gastro-esophageal reflux disease without esophagitis (6) HTN (hypertension) Hypertension type: renovascular hypertension Qualified Code(s): I15.0 - Renovascular hypertension (7) Pneumonia Pneumonia type: due to unspecified organism Laterality: bilateral Lung location: unspecified part of lung Qualified Code(s): J18.9 - Pneumonia, unspecified organism (8) Volume overload Hypervolemia type: unspecified Qualified Code(s): E87.70 - Fluid overload, unspecified
[2019-04-01] MEDS: HEPARIN SOD 5,000 UNIT/0.5 ML VIAL SQ SCH ×3 (06:18→20:30)
[2019-04-01 07:54] LABS: BUN Creatinine Ratio 16.7 (10-20); Calcium 8.8 mg/dl (8.5-10.1); Creatinine Clr Calc Pharmacy 20.1 ml/min; Est GFR (African American) 19.8; Est GFR (Non-African American) 17.1; Potassium 4.3 mmol/L (3.5-5.1)
[2019-04-01] MEDS: HYDROmorphone HCL 2 MG TAB PO PRN ×4 (08:20→21:16)
[2019-04-01] MEDS: NOVOLOG INSULIN PUMP SCH ×4 (08:21→20:38)
[2019-04-01] MEDS: ACETAMINOPHEN 500 MG TAB PO SCH ×3 (08:22→20:29)
[2019-04-01] MEDS: TACROLIMUS 1 MG CAP PO SCH ×2 (08:22→20:29)
[2019-04-01] MEDS: FERROUS GLUCONATE 324 MG TAB PO SCH ×2 (08:22→17:07)
[2019-04-01] MEDS: CLOPIDOGREL BISULFATE 75 MG TAB PO SCH (08:22)
[2019-04-01] MEDS: DOXYCYCLINE HYCLATE 100 MG CAP PO SCH ×2 (08:22→20:29)
[2019-04-01] MEDS: FUROSEMIDE 80 MG in SYRINGE 0 ML IV SCH (08:22)
[2019-04-01] MEDS: DOCUSATE SODIUM 100 MG CAP PO SCH ×2 (08:22→20:30)
[2019-04-01] MEDS: PREGABALIN 75 MG CAP PO SCH ×2 (08:25→20:30)
[2019-04-01] MEDS: CEFDINIR 300 MG CAP PO SCH (17:06)
--- NOTE | 2019-04-01 17:39 | Pharmacy Report ---
Pharmacy Glycemic Short Note 2 - Date of Service April 01, 2019 - Glycemic Short BSG Results (Last 24 hours): 03/31/19 03/31/19 04/01/19 19:58 21:01 02:25 Glucose POC Glucose 130 H 111 H 180 H 04/01/19 04/01/19 04/01/19 06:55 07:24 11:13 Glucose 172 H POC Glucose 172 H 323 H* OUTPATIENT ANTIDIABETIC REGIMEN: * OmniPod insulin pump (Novolog insulin) * Basal rates: 3545-0567 0.55units/hr; 3372-7231 0.65units/hr (14.8 units/day) * Correction factor: 50mg/dL/unit * Carb ratio: 1:30; however typically boluses 4 units/ breakfast + 4 units/lunch + 6 units w/dinner * A1c 7.5% ASSESSMENT: * Pharmacy consulted to see patient regarding elevated BSGs * Patient typically well controlled with his insulin pump per his report and A1c reflective of reasonable control as well * BSGs were running in the 300's, the offer was made to convert this patietn to SQ basal/bolus regimen if he was agreeable however he wished to continue to use his pump to gain control of his hyperglycemia. We did spend time troubleshooting his insulin pump (bad site, need to refill pump, etc) however there was not a clear reason for hyperglycemia. * He was successful yesterday in bringing his BSGs down to goal range utilizing his pump (and not SQ therapy) * Pre-lunch hyperglycemia observed today however this was explainable as he omitted insulin administration with his breakfast today * Patient is using flow sheet to chart his insulin doses * Will continue to monitor pt's ability to self-control BSGs. Of note he does have a Dexcom for cont BSG monitoring, however we will continue to monitor this patient via [employer] [facility] PLAN FOR INPATIENT GLYCEMIC CONTROL: * Continue patient self-management w/ insulin pump
[2019-04-01] MEDS: PANTOprazole 40 MG TAB PO SCH (20:28)
[2019-04-01] MEDS: allopurinoL 300 MG TAB PO SCH (20:28)
[2019-04-01] MEDS: SERTRALINE HCL 50 MG TABLET PO SCH (20:28)
[2019-04-01] MEDS: ASPIRIN 81 MG ECTAB PO SCH (20:29)
[2019-04-01] MEDS: SIROLIMUS 0.5 MG TABLET PO SCH (20:29)
[2019-04-01] MEDS: predniSONE 5 MG TAB PO SCH (20:29)
[2019-04-01] MEDS: METOPROLOL SUCC 50MG EXT REL TAB PO SCH (20:29)
[2019-04-01] MEDS: ATORVASTATIN 40 MG TAB PO SCH (20:30)
--- NOTE | 2019-04-01 21:17 | Hospitalist Progress Note ---
Date of Service April 01, 2019 Assessment & Plan (1) Acute respiratory failure with hypoxia: Likely combination of pulmonary edema/volume overload from CKD + pneumonia process (patient had well-documented fever at time of admission). O2 has been weaned off. Pulmonary congestion much improved clinically and radiographically. He feels well without dyspnea. (2) Volume overload: Likely pulmonary edema in setting of advanced CKD. RESOLVED s/p multiple doses of IV lasix since admission. Creatinine jodi mildly today and patient appears euvolemic on exam -- d/c IV lasix. Repeat BMP am. (3) Pneumonia: suspected b/l had fevers at time of admission cont abx -- PO cefdinir and doxy to complete 7 days in total of antibiotic therapy overall improved day #4 of abx today (4) Sepsis: likely due to pneumonia process blood cx's neg sepsis clinically resolved (5) Diabetes: Longstanding history of Type-I DM. Insulin pump in place. Glycemic control - labile over last 48 hours as his appetite improved. pharmacy managing his T1DM - appreciate assistance. (6) HTN (hypertension): Satisfactory control. Continue Amlodipine Continue Metoprolol check TSH in am due to tachycardia (7) End-stage renal failure with renal transplant: Patient with renal transplant in place. follows with Dr. Samson Continue Tacrolimus at home dosage. Continue daily prednisone BMP daily baseline CrCl 20s c/w CKD stage 4 (8) Moderate obstructive sleep apnea: Continue CPAP (9) Gout: Chronic. Stable Continue Allopurinol (10) Gastroesophageal reflux: no issues at this time PPI on hold - should we swap PPI indefinitely for H2 raine? (due to concern for PPI adverse effects on renal function??) will d/w Dr Samson (11) Dyslipidemia: Chronic. Stable Continue Atorvastatin (12) CAD in [place] artery: Continue ASA, Plavix, Atorvastatin, Metoprolol no ischemic symptoms at this time (13) Avascular necrosis of bone of right hip: s/p THR performed on 03/17/[address] Bill Lima. Incision well-healed. This is about the time that ernst are typically removed. Spoke with Dr Lima who will inspect the incision on 04/02/2019. Cont DVT proph. Pain control. Plan to return to [facility] for continued rehab following this admission. (14) Depression: Continue Sertraline patient's 5yo son several years ago - still dealing with emotions of such (15) Anemia: baseline 9's was 7.8 two days ago repeat CBC in am for stability cont Fe supplementation could be contributing to tachycardia (16) DVT prophylaxis: currently on heparin SC - change dose to q12h dosing due to CKD pt's renal transplant status and tacrolimus use constitutes high-risk medication and need for close surveillance patient IS willing to return to [facility] social work aware left message for on her voicemail 04/01/19 d/c tomorrow if renal function is stable? Subjective patient feeling well. good appetite. no cough, dyspnea or other pulmonary symptoms. tele overnight - NSR. only complaint is right hip pain. IS willing to return to [facility] for ongoing rehab (was there prior to this admission receiving rehab in setting of recent right THR). Review of Systems Constitutional: no fever, no chills, no fatigue and no anorexia Respiratory: no cough, no dyspnea, no dyspnea on exertion and no wheezing Cardiovascular: no chest pain Gastrointestinal: no abdominal pain, no nausea and no vomiting Physical Exam Constitutional: well developed and well nourished; no acute distress and no altered mental status ENMT: external ear and nose normal, oropharynx normal Respiratory: no respiratory distress Auscultation: + crackles (fine, bases); no wheezes Cardiovascular: Rate/Rhythm: regular rhythm and + tachycardic Heart Sounds: normal S1, normal S2 and + murmur (2/6 heard all over chest (systolic)) Vessels: posterior tibial pulses present (right foot - 2+) and dorsalis pedis pulses present (right foot - 2+); no JVD Gastrointestinal (Abdomen): normal bowel sounds, soft, nontender, no hepatosplenomegaly Musculoskeletal: left BKA Skin: + pallor right hip incision - clean, ernst intact Psychiatric: Orientation: alert and oriented x 3 Results & Data ([facility]) Vital Signs (Past 12 Hours) Vital Signs Temp Pulse Pulse Resp BP BP Pulse Ox 04/01/19 20:00 36.4 C L 106 H 14 152/94 H 95 04/01/19 16:00 99 H 04/01/19 15:12 36.6 C 95 H 16 145/96 H 98 04/01/19 12:28 36.7 C 96 H 16 151/91 H 98 04/01/19 12:00 93 H Laboratory Results Laboratory Results - last 24 hr 04/01/19 04/01/19 04/01/19 02:25 06:55 07:24 Sodium 141 Potassium 4.3 D Chloride 108 H Carbon Dioxide 27 Anion Gap 6.0 BUN 67 H Creatinine 4.02 H Est Cr Clr Drug Dosing 20.1 Est GFR ( Amer) 19.8 Est GFR (Non-Af Amer) 17.1 BUN/Creatinine Ratio 16.7 Glucose 172 H POC Glucose 180 H 172 H Calcium 8.8 04/01/19 04/01/19 11:13 16:15 Sodium Potassium Chloride Carbon Dioxide Anion Gap BUN Creatinine Est Cr Clr Drug Dosing Est GFR ( Amer) Est GFR (Non-Af Amer) BUN/Creatinine Ratio Glucose POC Glucose 323 H* 238 H Calcium PG Care Time/CCT Total # of Minutes Spent Total Time Spent with Patient: Total time spent is greater than 50% in coordination of care (as documented) at patient's floor/unit and/or counseling patient: Coding Level of Care Code 49921 Subseq Hosp Care Lvl 3 Diagnoses Acute respiratory failure with hypoxia J96.01 Volume overload E87.70 Hypervolemia type: unspecified Pneumonia J18.9 Pneumonia type: due to unspecified organism Laterality: bilateral Lung location: unspecified part of lung Sepsis A41.9 Sepsis acute organ dysfunction status: unspecified Sepsis type: sepsis due to unspecified organism Diabetes E10.22; N18.4 Diabetes mellitus type: type 1 Diabetes mellitus complication status: with kidney complications Diabetes mellitus complication detail: with chronic kidney disease Chronic kidney disease stage: stage 4 (severe) HTN (hypertension) I15.0 Hypertension type: renovascular hypertension End-stage renal failure with renal transplant N18.6; Z94.0 Moderate obstructive sleep apnea G47.33 Gout M10.9 Gout site: unspecified site Gout etiology: unspecified cause Chronicity: unspecified Gastroesophageal reflux K21.9 Esophagitis presence: esophagitis presence not specified Dyslipidemia E78.5 CAD in [place] artery I25.10 Avascular necrosis of bone of right hip M87.051 Depression F33.9 Depression Type: major depressive disorder Major depression recurrence: recurrent Active/Remission status: remission status unspecified Anemia D64.89 Anemia type: other cause Other causes of anemia: other cause, not classified DVT prophylaxis Z29.9 (1) Volume overload Hypervolemia type: unspecified Qualified Code(s): E87.70 - Fluid overload, unspecified (2) Pneumonia Pneumonia type: due to unspecified organism Laterality: bilateral Lung location: unspecified part of lung Qualified Code(s): J18.9 - Pneumonia, unspecified organism (3) Sepsis Sepsis acute organ dysfunction status: unspecified Sepsis type: sepsis due to unspecified organism Qualified Code(s): A41.9 - Sepsis, unspecified organism (4) Diabetes Diabetes mellitus type: type 1 Diabetes mellitus complication status: with kidney complications Diabetes mellitus complication detail: with chronic kidney disease Chronic kidney disease stage: stage 4 (severe) Qualified Code(s): E10.22 - Type 1 diabetes mellitus with diabetic chronic kidney disease; N18.4 - Chronic kidney disease, stage 4 (severe) (5) HTN (hypertension) Hypertension type: renovascular hypertension Qualified Code(s): I15.0 - Renovascular hypertension (6) Gout Gout site: unspecified site Gout etiology: unspecified cause Chronicity: unspecified Qualified Code(s): M10.9 - Gout, unspecified (7) Gastroesophageal reflux Esophagitis presence: esophagitis presence not specified Qualified Code(s): K21.9 - Gastro-esophageal reflux disease without esophagitis (8) Depression Depression Type: major depressive disorder Major depression recurrence: recurrent Active/Remission status: remission status unspecified Qualified Code(s): F33.9 - Major depressive disorder, recurrent, unspecified (9) Anemia Anemia type: other cause Other causes of anemia: other cause, not classified Qualified Code(s): D64.89 - Other specified anemias
[2019-04-02] MEDS: HYDROmorphone HCL 2 MG TAB PO PRN (05:47)
[2019-04-02 07:10] LABS: Hematocrit (blood only) 27.6 % (42-52); Hemoglobin 8.5 g/dL (14.0-18.0); Mean Corpuscular Hemoglobin 26.3 pg (25-34); Mean Corpuscular Hgb Conc 30.8 g/dL (32-36); Mean Corpuscular Volume 85.4 fL (80-100); Mean Platelet Volume 11.8 fL (7.4-10.4); Platelet Count 258 K/uL (130-400); RDW Coefficient of Variation 16.3 % (11.5-14.5); RDW Standard Deviation 51.5 fL (36.4-46.3); Red Blood Count 3.23 M/uL (4.7-6.1); White Blood Count 8.48 K/uL (4.8-10.8)
[2019-04-02 07:50] LABS: BUN Creatinine Ratio 16.7 (10-20); Calcium 9.1 mg/dl (8.5-10.1); Creatinine Clr Calc Pharmacy 19.6 ml/min; Est GFR (African American) 19.1; Est GFR (Non-African American) 16.5; Potassium 4.9 mmol/L (3.5-5.1)
[2019-04-02 08:00] LABS: Thyroid Stimulating Hormone 1.3 uIu/ml (0.300-4.500)
[2019-04-02] MEDS: FERROUS GLUCONATE 324 MG TAB PO SCH (08:36)
[2019-04-02] MEDS: DOXYCYCLINE HYCLATE 100 MG CAP PO SCH (08:36)
[2019-04-02] MEDS: ACETAMINOPHEN 500 MG TAB PO SCH (08:36)
[2019-04-02] MEDS: DOCUSATE SODIUM 100 MG CAP PO SCH (08:37)
[2019-04-02] MEDS: TACROLIMUS 1 MG CAP PO SCH (08:37)
[2019-04-02] MEDS: CLOPIDOGREL BISULFATE 75 MG TAB PO SCH (08:37)
[2019-04-02] MEDS: PREGABALIN 75 MG CAP PO SCH (08:50)
[2019-04-02] MEDS: NOVOLOG INSULIN PUMP SCH ×2 (08:51→12:13)
[2019-04-02] MEDS ORDERED: HEPARIN SOD 5,000 UNIT/0.5 ML VIAL SQ SCH (09:00)
--- NOTE | 2019-04-02 13:09 | Discharge Summary ---
Date of Service April 02, 2019 Admission HPI Per Admitting Provider Constantine Dalton is a 43yo C male with history of renal transplant, HTN, DM-I, CAD s/p stent presenting with SOB. Patient was recently admitted to the hospital recently and had a right MIGUEL performed on 03/17/19 for avascular necrosis. The surgery was well tolerated and he was discharged to [facility] in stable condition on 03/26/19. He reports doing well, participating in rehab exercises without difficulty. This afternoon during his exercises he felt short of breath. He was unable to complete his activities and laid down around 11:30. Around 13:30 he woke up acutely short of breath, he reports his oxygen saturation at that time was 87%. He was brought to the ER. Upon arrival he was found to be febrile at 38.5, tachycardic at 117, BP of 189/133, RR of 35 and saturating 87% on room air. He was placed on nasal cannula with improvement in oxygenation. He has had a cough productive for dark colored, bloody sputum as well as some mild nausea and constipation, one episode of vomiting. He admits to worsening LE edema. Denies weight gain, orhtopnea. No CP/palpitations. No abdominal pain. Surgical site is healing well. No bleeding or drainage. He reports multiple sick contacts, multiple people at [facility] with URI symptoms. No recent travel. ER Course: TYlenol, Vancomycin, Cefepime, Lasix Discharge Exam Constitutional well developed and well nourished; no acute distress and no altered mental status ENMT external ear and nose normal, oropharynx normal Respiratory no respiratory distress Auscultation: + crackles (fine, bases); no wheezes Cardiovascular Rate/Rhythm: regular rhythm and + tachycardic Heart Sounds: normal S1, normal S2 and + murmur (2/6 heard all over chest (systolic)) Vessels: posterior tibial pulses present (right foot - 2+) and dorsalis pedis pulses present (right foot - 2+); no JVD Gastrointestinal (Abdomen) normal bowel sounds, soft, nontender, no hepatosplenomegaly Skin + pallor Psychiatric Orientation: alert and oriented x 3 Discharge Data Allergies Allergy/AdvReac Type Severity Reaction Status Date / Time PORK INSULIN Allergy Unknown Hives Uncoded 03/29/19 14:58 Consultations 03/29/19 15:22 ED Decision to Admit Stat Ordered Studies 03/29/19 18:20 CT chest wo con Urgent Hospital Course (1) Acute respiratory failure with hypoxia: Likely combination of pulmonary edema/volume overload from CKD + pneumonia process (patient had well-documented fever at time of admission). O2 has been weaned off. Pulmonary congestion much improved clinically and radiographically. He feels well without dyspnea. (2) Volume overload: Likely pulmonary edema in setting of advanced CKD. RESOLVED s/p multiple doses of IV lasix since admission. Creatinine jodi mildly today and patient appears euvolemic on exam -- d/c IV lasix. Repeat BMP am. (3) Pneumonia: suspected b/l had fevers at time of admission cont abx -- PO cefdinir and doxy to complete 7 days in total of antibiotic therapy overall improved day #4 of abx today (4) Sepsis: likely due to pneumonia process blood cx's neg sepsis clinically resolved (5) Diabetes: Longstanding history of Type-I DM. Insulin pump in place. Glycemic control - labile over last 48 hours as his appetite improved. pharmacy managing his T1DM - appreciate assistance. (6) HTN (hypertension): Satisfactory control. Continue Amlodipine Continue Metoprolol check TSH in am due to tachycardia (7) End-stage renal failure with renal transplant: Patient with renal transplant in place. follows with Dr. Samson Continue Tacrolimus at home dosage. Continue daily prednisone BMP daily baseline CrCl 20s c/w CKD stage 4 (8) Moderate obstructive sleep apnea: Continue CPAP (9) Gout: Chronic. Stable Continue Allopurinol (10) Gastroesophageal reflux: no issues at this time PPI on hold - should we swap PPI indefinitely for H2 raine? (due to concern for PPI adverse effects on renal function??) will d/w Dr Samson (11) Dyslipidemia: Chronic. Stable Continue Atorvastatin (12) CAD in [place] artery: Continue ASA, Plavix, Atorvastatin, Metoprolol no ischemic symptoms at this time (13) Avascular necrosis of bone of right hip: s/p THR performed on 03/17/[address] Bill Lima. Incision well-healed. This is about the time that ernst are typically removed. Spoke with Dr Lima who will inspect the incision on 04/02/2019. Cont DVT proph. Pain control. Plan to return to [facility] for continued rehab following this admission. (14) Depression: Continue Sertraline patient's 5yo son several years ago - still dealing with emotions of such (15) Anemia: baseline 9's was 7.8 two days ago repeat CBC in am for stability cont Fe supplementation could be contributing to tachycardia (16) DVT prophylaxis: currently on heparin SC - change dose to q12h dosing due to CKD pt's renal transplant status and tacrolimus use constitutes high-risk medication and need for close surveillance patient IS willing to return to [facility] social work aware left message for on her voicemail 04/01/19 d/c tomorrow if renal function is stable? Discharge Plan Discharge Items Patient Disposition: Home - Home Health Services Reason For Visit: shortness of breath Discharge Diagnosis: 1. shortness of breath due to fluid in the lungs - resolved. Fluid in the lungs developed as a result of your kidney disease and recent IV fluids. 2. recent right hip replacement by Dr Lima. 3. possible pneumonia - resolved. Activity: Resume your previous activity Activity Comment: please follow any precautions that were previously recommended by Dr Lima Non-emergency contact: Primary Care Provider and Surgeon Call non-emergency contact if: you have any medication questions, your pain is not controlled, your pain is worsening, you have a fever, your wound has increased redness, your wound has increased drainage and your wound pain has increased Follow-up/Referrals: Kobe Samson MD [Primary Care Provider] - 04/08/19 3:45 pm (Please, follow up at Dr. Samson's office with his associate, Korina ALVAREZ, on April 08 at 3:45 pm. *If you need to change this appointment, call their office at [phone].) Bill Lima MD [Physician] - (see Dr Lima within 1 month ) Diet: Carb Count or DM1 and Low Sodium (2gm) Fluids: 1800ml (7 cups) Addtl Attending Provider Instructions: You presented to the hospital with shortness of breath. The bulk of your breathing difficulty was likely due to fluid retention (also known as pulmonary edema) in the lungs. This likely occurred because of your chronic kidney disease and recent IV fluids. There was also some question of a potential pneumonia process. You improved with IV diuretics (lasix), antibiotics, and time. Recommendations - 1. take furosemide 40mg EVERY OTHER DAY to prevent water retention. Take your first dose TODAY. 2. take cefdinir antibiotic daily for 3 days starting TODAY. 3. for your high blood pressure please take 75mg of metoprolol xl. New prescription sent to your pharmacy for you. Of note - your previous dose was 50mg/day. 4. for prevention of blood clots in your legs - * take aspirin 81mg once daily for 2 1/2 more weeks. Following that time period the aspirin can be stopped. * continue your plavix as previous. 5. ACTIVITY RECOMMENDATIONS following your hip replacement surgery -- Physical Therapy: * Aggressive physical therapy is not usually needed. You will learn to take care of yourself safely and walk. * Follow the "Hip Precautions Instructions." * In some cases, the social work administrator at the hospital will arrange to have a therapist come to your house for the first couple of weeks to help you learn these skills. * You need to practice on your own or with the help of a family member as needed. * When you learn these skills, most of the therapy can be done on your own. Home Exercise: * You were shown a series of exercises in the hospital. Do these exercises three to four times each day including the exercises you were shown in physical therapy. Walking: * Get up and walk several times each day. For the first four weeks, try not to stand or walk for more than one hour at a time. If you do stand or walk for more than one hour, you will not hurt anything, but your leg will likely swell. * As you feel comfortable, you may change from the walker or crutches to a cane and then to independent walking Prevention of Infection: * Take antibiotics one hour before any dental cleaning, dental work, urological procedure, gastrointestinal procedure or any invasive surgery in order to prevent your new joint from getting infected. * You may get the antibiotics from the doctor performing the procedure or you may call our office at before and we will call in a prescription to the pharmacy of your choice. Things to Watch For: * Drainage from the incision site that occurs more than one week after your surgery. * Severely increased leg pain or swelling. * Increased redness at the incision site. * Fever above 102 degrees Fahrenheit. * Unusual chest pain or shortness of breath. * Unusual pain or burning with urination. Call [facility] at with any of the above problems or if you have any questions about your medicines or recovery. Additional instructions -- Check your weight EVERY MORNING on the same scale. It is best to check your weight after you have emptied the bladder. Call Dr Samson if you gain more than 2-3 pounds over 1-2 days. This is typically a sign of worsening fluid retention. Lastly, limit your salt intake to 2000mg (2gm) per day or less. Excess salt will worsen fluid retention. Limit your total fluid intake to 1800cc per day or less. Excess fluid intake will worsen fluid retention. Pending Studies at Discharge: No Stand-Alone Forms: My [facility], Smoking Cessation Medications and DC Order Prescriptions: New cefdinir 300 mg Capsule 300 mg PO DAILY 3 Days Qty: 3 RF: 0 metoprolol succinate 25 mg capsule,sprinkle,ER 24hr 75 mg PO DAILY Qty: 90 RF: 5 furosemide [Lasix] 40 mg tablet 40 mg PO Q OTHER DAY Qty: 30 RF: 5 Continued pregabalin [Lyrica] 75 mg capsule 75 mg PO BID Qty: 60 RF: 2 (DME) Dexcom G6 Supervisor [employer] misc See Dose Instructions .ROUTE .MEDSUPPLY Qty: 1 RF: 0 (DME) Dexcom G6 Sensor device See Dose Instructions .ROUTE .MEDSUPPLY Qty: 9 RF: 3 (DME) Dexcom G6 Transmitter device See Dose Instructions .ROUTE .MEDSUPPLY Qty: 1 RF: 3 sirolimus 2 mg tablet 4 mg PO HS Qty: 180 RF: 1 hydromorphone 2 mg tablet 2 mg PO Q4H PRN (Reason: pain) Qty: 90 RF: 0 allopurinol 300 mg tablet 300 mg PO HS Qty: 90 RF: 3 atorvastatin 80 mg tablet 80 mg PO HS Qty: 90 RF: 3 doxycycline hyclate 50 mg capsule 50 mg PO BID Qty: 180 RF: 3 prednisone 5 mg tablet 5 mg PO HS Qty: 90 RF: 3 sertraline 50 mg tablet 50 mg PO HS Qty: 90 RF: 3 (DME) 3-in-1 Commode Misc See Rx Instructions .ROUTE .MEDSUPPLY Qty: 1 RF: 0 (DME) Wheeled Walker Misc See Rx Instructions .ROUTE .MEDSUPPLY Qty: 1 RF: 0 (DME) Wheeled Walker Misc See Rx Instructions .ROUTE .MEDSUPPLY Qty: 1 RF: 0 (DME) FreeStyle Test strip See Dose Instructions .ROUTE .MEDSUPPLY Qty: 100 RF: 11 (DME) OneTouch Verio strip See Dose Instructions .ROUTE .MEDSUPPLY Qty: 10 RF: 0 (DME) insulin syringe-needle U-100 [BD Insulin Syringe Ultra-Fine] 0.5 mL 31 gauge x 5/16" syringe See Dose Instructions .ROUTE .MEDSUPPLY Qty: 10 RF: 0 Glucagon Emergency Kit (human) 1 mg recon soln 1 mg IM .COMPLEX PRN (Reason: LOW BLOOD SUGAR) RF: 0 (DME) Ketostix strip See Dose Instructions .ROUTE .MEDSUPPLY Qty: 25 RF: 0 Novolog U-100 Insulin aspart 100 unit/mL solution 100 units SQ .COMPLEX RF: 0 (DME) lancets [OneTouch Delica Lancets] 33 gauge misc See Dose Instructions .ROUTE .MEDSUPPLY Qty: 100 RF: 0 tacrolimus 1 mg capsule 3 mg PO BID RF: 0 ferrous gluconate 324 mg (38 mg iron) Tablet 324 mg PO BIDM 30 Days Qty: 60 RF: 0 acetaminophen [Tylenol Extra Strength] 500 mg tablet 1,000 mg PO TID 30 Days Qty: 180 RF: 0 aspirin 81 mg Tablet,Delayed Release (Dr/Ec) 81 mg PO HS RF: 0 pantoprazole 40 mg Tablet,Delayed Release (Dr/Ec) 40 mg PO HS RF: 0 docusate sodium [Colace] 100 mg Capsule 100 mg PO BID RF: 0 clopidogrel [Plavix] 75 mg tablet 75 mg PO QAM RF: 0 Discontinued hydromorphone 2 mg Tablet 2 - 4 mg PO Q4H PRN (Reason: pain) Qty: 40 RF: 0 amlodipine 2.5 mg Tablet 2.5 mg PO ONCE RF: 0 Discharge Orders: Discharge Order (Routine); Ordered 04/02/19 Ordered By: Kobe Espitia Admission Data Admit Date/Time: 03/29/19 16:40 Attending Provider: Kobe Espitia Admit Provider: Ronel Lima Primary Care Provider: Kobe Samson Other Providers: Ronel Lima ; [facility] Coding Diagnoses Acute respiratory failure with hypoxia J96.01 Volume overload E87.70 Hypervolemia type: unspecified Pneumonia J18.9 Pneumonia type: due to unspecified organism Laterality: bilateral Lung location: unspecified part of lung Sepsis A41.9 Sepsis acute organ dysfunction status: unspecified Sepsis type: sepsis due to unspecified organism Diabetes E10.22; N18.4 Diabetes mellitus type: type 1 Diabetes mellitus complication status: with kidney complications Diabetes mellitus complication detail: with chronic kidney disease Chronic kidney disease stage: stage 4 (severe) HTN (hypertension) I15.0 Hypertension type: renovascular hypertension End-stage renal failure with renal transplant N18.6; Z94.0 Moderate obstructive sleep apnea G47.33 Gout M10.9 Gout site: unspecified site Gout etiology: unspecified cause Chronicity: unspecified Gastroesophageal reflux K21.9 Esophagitis presence: esophagitis presence not specified Dyslipidemia E78.5 CAD in upper [place] artery I25.10 Avascular necrosis of bone of right hip M87.051 Depression F33.9 Depression Type: major depressive disorder Major depression recurrence: recurrent Active/Remission status: remission status unspecified Anemia D64.89 Anemia type: other cause Other causes of anemia: other cause, not classified DVT prophylaxis Z29.9
--- NOTE | 2019-04-02 14:42 | Progress Note ---
DATE: 04/02/2019 SUBJECTIVE: 43-year-old gentleman now a little over 2 weeks out from a right uncemented total hip arthroplasty done for avascular necrosis. He has been readmitted by the medicine service for some medical issues, specifically volume overload. He is clinically doing well currently. He says his hip pain is getting significantly better. Denies any other real symptoms. No fevers. He has had no drainage from his hip wound. OBJECTIVE: VITAL SIGNS: Temperature 37.1. GENERAL: Shows a pleasant, middle-aged male. He is lying in bed this morning and looks quite comfortable. EXTREMITIES: Examination of the right hip reveals incision to be healed nicely. His leg is well aligned. His hip is located. Thigh is soft and supple. He is neurologically intact. ASSESSMENT: 43-year-old gentleman a little over 2 weeks out from right total hip replacement done for avascular necrosis. He has done pretty well orthopedically. He has had some pain issues, but seems to be getting better. His incision has healed nicely. PLAN: 1. DVT prophylaxis including thigh-high TEDS, SCDs, and he is on a baby aspirin a day along with Plavix and that should be enough for DVT prophylaxis. 2. PT/OT. We would recommend he continue just weightbear as tolerated. Needs to obey total hip precautions for the next 4 weeks. 3. Medical management as per the medicine service. 4. Wound care. I removed his ernst today. Steri-Strip his wound. He can shower. 5. Disposition. I need to see him back in 4 weeks. I should see him 6 weeks out from surgery date and x-ray of his hip. Any orthopedic questions can be directed to me at [phone].
== END 2019-04-02 14:10 | disposition home health service (06) | DRG 871 ==
LOC: ED 14:10 → 2E 16:40 → SUATTDRO 16:40 → 2E 17:17

== ENCOUNTER 2019-10-10 10:10 | Inpatient (IN) ==
[2019-10-10] MEDS ORDERED: ACETAMINOPHEN 500 MG TAB PO STA (10:50)
--- NOTE | 2019-10-10 11:08 | Electrocardiogram Report ---
Test Reason : Blood Pressure : / mmHG Vent. Rate : 100 BPM Atrial Rate : 100 BPM P-R Int : 172 ms QRS Dur : 080 ms QT Int : 318 ms P-R-T Axes : 066 036 096 degrees QTc Int : 410 ms Normal sinus rhythm Possible Left atrial enlargement Low voltage QRS T wave abnormality, consider lateral ischemia Abnormal ECG When compared with ECG of 29-MAR-2019 14:20, No significant change was found Confirmed by Delio Otoole ([id number]) on 10/10/2019 11:07:45 AM Referred By: REFERRED SELF Confirmed By:Angel Otoole
[2019-10-10 11:27] LABS: Basophils # (auto) 0.02 K/uL (0-0.2); Basophils % (auto) 0.2 %; Eosinophils % (auto) 3.5 %; Hematocrit (blood only) 29.8 % (42-52); Hemoglobin 9.2 g/dL (14.0-18.0); Immature Granulocytes # (auto) 0.04 K/uL (0.00-0.02); Immature Granulocytes % (auto) 0.4 %; Lymphocytes # (auto) 1.51 K/uL (1.2-3.4); Lymphocytes % (auto) 13.4 %; Mean Corpuscular Hemoglobin 25.1 pg (25-34); Mean Corpuscular Hgb Conc 30.9 g/dL (32-36); Mean Corpuscular Volume 81.2 fL (80-100); Mean Platelet Volume 12.6 fL (7.4-10.4); Monocytes # (auto) 1.05 K/uL (0.11-0.59); Monocytes % (auto) 9.3 %; Neutrophils # (auto) 8.28 K/uL (1.4-6.5); Neutrophils % (auto) 73.2 %; Platelet Count 176 K/uL (130-400); RDW Coefficient of Variation 16.2 % (11.5-14.5); RDW Standard Deviation 48.1 fL (36.4-46.3); Red Blood Count 3.67 M/uL (4.7-6.1)
[2019-10-10 11:32] LABS: iSTAT Creatinine 3.3 mg/dl (0.6-1.3); iSTAT Hemoglobin 9.2 g/dl (14.0-18.0); iSTAT Ionized Calcium 1.22 mmol/l (1.12-1.32); iSTAT Potassium 4.7 mmol/L (3.3-5.0)
[2019-10-10 11:37] LABS: Partial Thromboplastin Time 26.8 Seconds (21.0-31.0); Prothrombin Time 10.6 Seconds (9.0-12.0)
[2019-10-10 11:47] LABS: Alanine Aminotransferase 36 U/L (12-78); Aspartate Aminotransferase 32 U/L (15-37); BUN Creatinine Ratio 24.8 (10-20); Blood Urea Nitrogen 78 mg/dl (7-18); Calcium 8.8 mg/dl (8.5-10.1); Carbon Dioxide 21 mmol/L (21-32); Chloride 116 mmol/L (98-107); Creatinine Clr Calc Pharmacy 28.7 ml/min; Est GFR (African American) 26.5; Est GFR (Non-African American) 22.9; Glucose 60 mg/dl (70-99); Magnesium 2.2 mg/dl (1.8-2.4); Potassium 4.7 mmol/L (3.5-5.1); Sodium 142 mmol/L (136-145)
[2019-10-10 11:51] LABS: Albumin Globulin Ratio 0.8 (0.9-2); Alkaline Phosphatase 122 U/L (45-117); Bilirubin,Total 0.4 mg/dl (0.2-1); Globulin 3.8 gm/dl (2.5-4.0); Total Protein 6.8 gm/dl (6.4-8.2); Troponin I < 0.015 ng/ml (0-0.045)
--- NOTE | 2019-10-10 12:09 | XRay Report ---
XR chest 1V portable CLINICAL HISTORY: SEPSIS dyspnea COMPARISON STUDY: 03/30/2019 FINDINGS: Moderate cardiomegaly. Prominent pulmonary vasculature suggesting congestive heart failure. Possible basilar infiltrates are not excluded. IMPRESSION: Congestive heart failure versus developing bibasilar parenchymal infiltrates. ACT 112: Negative or not required by law. The above report was generated using voice recognition software. It may contain grammatical, syntax or spelling errors. Electronically signed by: Nestor Recinos M.D. 10/10/2019 12:08 PM
[2019-10-10] MEDS ORDERED: CEFEPIME 2,000 MG/20 ML VIAL IV STA (12:10)
[2019-10-10] MEDS ORDERED: FUROSEMIDE 40 MG/4 ML VIAL IV STA (12:11)
[2019-10-10] MEDS ORDERED: LEVOFLOXACIN/D5W 750 MG/150 ML BAG IV SCH (12:15)
--- NOTE | 2019-10-10 13:32 | Emergency Department Note ---
History of Present Illness General Chief complaint: Shortness of Breath/Dyspnea Stated complaint: SOB Time Seen by Provider: 10/10/19 10:17 Source: patient, RN notes reviewed and old records reviewed Mode of arrival: ambulatory Limitations: no limitations History of Present Illness Provider complaint: Shortness of breath Onset (ago): day(s) 3 Location: chest Radiation: back Severity: mild Pain Consistency: + intermittent Maximum Pain Intensity: 2 Current Pain Intensity: 2 Quality: + aching Relieved By: + immobilization Exacerbated By: + movement Associated symptoms: + cough and + shortness of breath; no nausea/vomiting This is a 44-year-old male who has a history of a kidney transplant and comes to the emergency department complaining of shortness of breath. In addition to the kidney transplant the patient also has a history of congestive heart failure. He reports shortness of breath that has been ongoing for the past 3 days. He denies any fevers or chills. Home Medications Home Medications Medication Instructions Recorded Confirmed Type glucagon (human recombinant) 1 mg 1 mg IM .COMPLEX PRN 10/05/18 10/10/19 History solution for injection lancets 33 gauge #100 ea 10/05/18 09/24/19 History aspirin 81 mg PO HS 11/23/18 10/10/19 History Dexcom G6 Reproduction Machine Loader #1 ea NS 11/30/18 09/24/19 Rx Dexcom G6 Sensor #9 ea NS 11/30/18 09/24/19 Rx Dexcom G6 Transmitter #1 ea NS 11/30/18 09/24/19 Rx allopurinol 300 mg tablet 300 mg PO HS #90 tab 03/16/19 10/10/19 Rx doxycycline hyclate 50 mg capsule 50 mg PO BID #180 cap 03/16/19 10/10/19 Rx prednisone 5 mg tablet 5 mg PO HS #90 tab 03/16/19 10/10/19 Rx sertraline 50 mg tablet 50 mg PO HS #90 tab 03/16/19 10/10/19 Rx clopidogrel [Plavix] 75 mg PO QAM 03/29/19 10/10/19 History atorvastatin 80 mg tablet 80 mg PO HS #90 tab 06/23/19 10/10/19 Rx pantoprazole 40 mg tablet,delayed 40 mg PO HS #90 tab 06/23/19 10/10/19 Rx release pregabalin 75 mg capsule 75 mg PO BID #60 cap 06/23/19 10/10/19 Rx sirolimus 2 mg tablet 4 mg PO HS #180 tab 06/23/19 10/10/19 Rx insulin aspart U-100 100 unit/mL See Rx Instructions .ROUTE 07/12/19 10/10/19 History subcutaneous solution .COMPLEX ml insulin syringe-needle U-100 0.5 #100 ea 09/09/19 09/24/19 Rx mL 31 gauge x 5/16" metoprolol succinate 75 mg PO HS 10/10/19 10/10/19 History benzonatate [Tessalon Perles] 100 mg PO TID PRN #10 cap 10/11/19 Rx furosemide [Lasix] 40 mg PO DAILY #0 tab 10/11/19 10/10/19 Rx levofloxacin [Levaquin] 750 mg PO Q48H #3 tab 10/11/19 Rx Allergies Allergy/AdvReac Type Severity Reaction Status Date / Time PORK INSULIN Allergy Unknown Hives Uncoded 10/10/19 12:11 Past Med/Surg History Medical History Anxiety CAD (coronary artery disease) Chronic renal insufficiency Deep vein thrombosis ARM (10 YEARS AGO) AT [facility] Depression Diabetes mellitus type 1 INSULIN PUMP Fistula LEFT ARM (NON FUNCTIONING) GERD (gastroesophageal reflux disease) Gout Hyperlipidemia Hypertension Mitral regurgitation MILD-MOD Myocardial Infarction 2016 Peripheral neuropathy Sensory problems with limbs Sleep apnea CPAP Surgical History H/O eye surgery LEFT/RT LASER SURGERY History of below knee amputation LEFT REVISION (5 TOTAL) History of cardiac cath 2016 - MD - [facility] - 2 STENTS - FOLLOWS W/ DR. JURADO History of heart artery stent 2016 (2 STENTS PLACED) AT [facility] Kidney transplant recipient 2001 Family History Grandfather Family history of diabetes mellitus Social History Smoking Status: Never smoker Second Hand Exposure: No; Hx Alcohol Use: Yes Alcohol type: beer Hx Substance Use: No Preferred Language: Marshallese Communication Ability: Effective Adolescent Specialist Required: No Beliefs That Will Affect Care: None marital status: Current Living Situation: Spouse Feels Safe at Home: Yes Review of Systems A total of 10 systems reviewed and were otherwise negative Physical Exam Vital Signs Vital Signs - 24 hr 10/10/19 10:10 10/10/19 10:13 10/10/19 10:26 Temperature 37.8 C H Temperature Source Oral Pulse Rate 100 H 102 H Pulse Rate from SpO2 Sensor 101 H Respiratory Rate 20 24 Respiratory Effort / Characteristics Short of Breath SOB on Exertion Non-Labored Spontaneous Respiratory Depth Normal Blood Pressure 178/104 H 183/106 H Blood Pressure Mean 128 127 Pulse Oximetry 98 94 Oxygen Delivery Method Room Air Room Air Sepsis Recent Fever Within 48 Hours No Sepsis New/Unexplained Change in Mental Status No Sepsis Action Taken by Nursing No Action Required 10/10/19 11:00 10/10/19 11:19 10/10/19 11:30 Temperature Temperature Source Pulse Rate 99 H 98 H 0 L Pulse Rate from SpO2 Sensor 98 H 96 H 95 H Respiratory Rate 23 20 25 H Respiratory Effort / Characteristics Respiratory Depth Blood Pressure 177/102 H 167/104 H 163/98 H Blood Pressure Mean 123 123 115 Pulse Oximetry 92 94 94 Oxygen Delivery Method Sepsis Recent Fever Within 48 Hours Sepsis New/Unexplained Change in Mental Status Sepsis Action Taken by Nursing 10/10/19 13:00 10/10/19 13:22 Temperature 36.7 C Temperature Source Oral Pulse Rate 91 H Pulse Rate from SpO2 Sensor 91 H Respiratory Rate 25 H Respiratory Effort / Characteristics Respiratory Depth Blood Pressure 120/74 Blood Pressure Mean 83 Pulse Oximetry 96 Oxygen Delivery Method Sepsis Recent Fever Within 48 Hours Sepsis New/Unexplained Change in Mental Status Sepsis Action Taken by Nursing VITAL SIGNS - Vital signs and nursing notes were reviewed. GENERAL - 44-year-old male appearing stated age who is in no acute distress. Communicates well with provider and answers questions appropriately. SKIN - Without rashes. HEAD - NC/AT. EYES - PERRL with EOMI bilaterally. Sclera anicteric. Palpebral conjunctiva pink and moist with no injection noted. EARS - No deformities of external structures noted on gross examination bilaterally. No pain elicited with palpation of the tragus bilaterally. External auditory canals without discharge or otorrhea. Tympanic membranes pearly beth without retraction or bulging. No fluid or purulent material visualized behind the TM. Handle of malleus, umbo, cone of light, pars tensa/flaccid all easily visualized. NOSE - Midline and without cyanosis. No epistaxis or purulent drainage noted. Septum midline without deviation or septal hematoma noted. MOUTH/OROPHARYNX - Without perioral cyanosis. Buccal mucosa pink and moist and without leukoplakia. Tongue midline with equal elevation of palate bilaterally. No tonsillar hypertrophy, erythema, or exudates noted. dentition noted. NECK - Neck with FROM. Supple to palpation. lymphadenopathy noted. No nuchal rigidity. LUNGS - Chest wall symmetric without accessory muscle use, intercostals retractions, or central cyanosis. Normal vesicular breath sounds CTA B/L. No wheezes, rales, or rhonchi appreciated. CARDIAC - RRR with S1/S2. No murmur, rubs, or gallops appreciated. ABDOMEN - Abdominal contour without pulsations or visible masses. BS normoactive all four quadrants. No tenderness, palpable masses, hepatosplenomegaly, or ascites noted. EXTREMITIES - No clubbing or peripheral cyanosis. No pretibial edema present. +3/5 radial, posterior tibial, and dorsalis pedis pulses palpated throughout. +5/5 strength noted in UE/LE bilaterally. NEUROLOGIC - Cranial nerves II through XII grossly intact. Sensory intact to light touch throughout. Patellar reflexes +2/4. PSYCH - A&Ox3 and cooperates fully with examiner. Pt is very pleasant and interacts well with examiner. Course Administered Medications Discontinued Medications Acetaminophen (Tylenol) 1,000 mg PO NOW STA Stop: 10/10/19 10:51 Last Admin: 10/10/19 11:02 Dose: 1,000 mg Documented by: [id number] Acetaminophen (Tylenol) 650 mg PO Q4H PRN PRN Reason: Pain or Fever Stop: 11/09/19 19:35 Last Admin: 10/10/19 20:14 Dose: 650 mg Documented by: [id number] Allopurinol (Zyloprim) 300 mg PO HS REBECCA Stop: 11/09/19 20:59 Last Admin: 10/10/19 20:16 Dose: 300 mg Documented by: [id number] Aspirin (Ecotrin Ectab) 81 mg PO HS REBECCA Stop: 11/09/19 20:59 Last Admin: 10/10/19 20:15 Dose: 81 mg Documented by: [id number] Atorvastatin Calcium (Lipitor) 80 mg PO HS REBECCA Stop: 11/09/19 20:59 Last Admin: 10/10/19 20:16 Dose: 80 mg Documented by: [id number] Benzonatate (Tessalon Perle) 100 mg PO TID PRN PRN Reason: Cough Stop: 11/09/19 21:00 Last Admin: 10/11/19 15:00 Dose: 100 mg Documented by: [id number] Admin: 10/10/19 21:41 Dose: 100 mg Documented by: [id number] Clopidogrel Bisulfate (Plavix) 75 mg PO QAM [facility] Stop: 11/10/19 08:59 Last Admin: 10/11/19 08:16 Dose: 75 mg Documented by: [id number] Furosemide (Lasix) 40 mg IV NOW STA Stop: 10/10/19 12:12 Last Admin: 10/10/19 12:52 Dose: 40 mg Documented by: [id number] Heparin Sodium (Porcine) (Heparin Sodium (Porcine)) 5,000 units SQ Q12 [facility] Stop: 11/09/19 20:59 Last Admin: 10/11/19 08:15 Dose: Not Given Documented by: [id number] Admin: 10/10/19 20:14 Dose: Not Given Documented by: [id number] Cefepime HCl (Maxipime) 2,000 mg in 20 mls @ 5 mls/min IV NOW STA Stop: 10/10/19 12:13 Last Admin: 10/10/19 13:01 Dose: 5 mls/min Documented by: [id number] Levofloxacin/Dextrose (Levaquin/D5w) 750 mg in 150 mls @ 100 mls/hr IV Q24H [facility] Stop: 10/17/19 12:14 Last Infusion: 10/10/19 14:43 Dose: 0 mls/hr Documented by: [id number] Admin: 10/10/19 13:01 Dose: 100 mls/hr Documented by: [id number] Cefepime HCl 2,000 mg/ Syringe 20 mls @ 5.5 mls/min IV Q24H [facility]; Protocol Stop: 10/18/19 12:59 Last Admin: 10/11/19 13:15 Dose: 5.5 mls/min Documented by: [id number] Menthol (Nice) Confirm Administered Dose 24 erasmo BUCCAL .STK-MED ONE Stop: 10/10/19 16:09 Last Admin: 10/10/19 17:23 Dose: 24 erasmo Documented by: [id number] Metoprolol Succinate (Toprol Xl) 75 mg PO REBECCA Stop: 11/09/19 20:59 Last Admin: 10/10/19 20:16 Dose: 75 mg Documented by: [id number] Pantoprazole Sodium (Protonix) 40 mg PO HS REBECCA Stop: 11/09/19 20:59 Last Admin: 10/10/19 20:16 Dose: 40 mg Documented by: [id number] Prednisone (Prednisone) 5 mg PO HS REBECCA Stop: 11/09/19 20:59 Last Admin: 10/10/19 20:15 Dose: 5 mg Documented by: [id number] Pregabalin (Lyrica) 75 mg PO BID REBECCA Stop: 11/09/19 20:59 Last Admin: 10/11/19 08:18 Dose: 75 mg Documented by: [id number] Admin: 10/10/19 20:14 Dose: 75 mg Documented by: [id number] Sertraline HCl (Zoloft) 50 mg PO REBECCA Stop: 11/09/19 20:59 Last Admin: 10/10/19 20:17 Dose: 50 mg Documented by: [id number] Sirolimus (Sirolimus) 4 mg PO [facility] Stop: 11/09/19 20:59 Last Admin: 10/10/19 20:15 Dose: 4 mg Documented by: [id number] Medical Decision Making Differential Diagnosis Viral syndrome, otitis, pharyngitis, pneumonia, influenza, meningitis, urinary tract infection, sepsis, bacteremia, as well as other pathologies. Medical Records Attestation: I reviewed the patient's medical records. Home Medications Current Medication List: was personally reviewed by me Laboratory Data Attestation: I reviewed the patient's lab results. Result diagrams: 10/11/19 05:54 10/11/19 05:54 Lab Results 10/10/19 10/10/19 10/10/19 Range/Units 11:10 11:10 11:10 WBC 11.30 H (4.8-10.8) K/uL RBC 3.67 L (4.7-6.1) M/uL Hgb 9.2 L (14.0-18.0) g/dL POC Hgb (14.0-18.0) g/dl Hct 29.8 L (42-52) % POC Hct (42-52) % MCV 81.2 (80-100) fL MCH 25.1 (25-34) pg MCHC 30.9 L (32-36) g/dL RDW Std Deviation 48.1 H (36.4-46.3) fL RDW Coeff of Michelle 16.2 H (11.5-14.5) % Plt Count 176 (130-400) K/uL MPV 12.6 H (7.4-10.4) fL Immature Gran % (Auto) 0.4 % Neut % (Auto) 73.2 % Lymph % (Auto) 13.4 % Bartholomew % (Auto) 9.3 % Eos % (Auto) 3.5 % Baso % (Auto) 0.2 % Neut # (Auto) 8.28 H (1.4-6.5) K/uL Lymph # (Auto) 1.51 (1.2-3.4) K/uL Bartholomew # (Auto) 1.05 H (0.11-0.59) K/uL Eos # (Auto) 0.40 (0-0.5) K/uL Baso # (Auto) 0.02 (0-0.2) K/uL Immature Gran # (Auto) 0.04 H (0.00-0.02) K/uL PT 10.6 (9.0-12.0) Seconds INR 1.0 (0.9-1.1) APTT 26.8 (21.0-31.0) Seconds PTT Ratio 1.0 POC Sodium (135-144) mmol/L Sodium 142 (136-145) mmol/L POC Potassium (3.3-5.0) mmol/L Potassium 4.7 (3.5-5.1) mmol/L POC Chloride (101-112) mmol/L Chloride 116 H (98-107) mmol/L Carbon Dioxide 21 (21-32) mmol/L POC Total CO2 (24-31) mmol/L Anion Gap 5.0 (3-11) POC Anion Gap (16-25) mmol/L POC BUN (7-18) mg/dl BUN 78 H (7-18) mg/dl Creatinine 3.14 H (0.6-1.4) mg/dl POC Creatinine (0.6-1.3) mg/dl Est Cr Clr Drug Dosing 28.7 ml/min Est GFR ( Amer) 26.5 Est GFR (Non-Af Amer) 22.9 BUN/Creatinine Ratio 24.8 H (10-20) Glucose 60 L (70-99) mg/dl POC Glucose (70-99) mg/dl POC Glucose (other) (70-99) mg/dl Lactate (0.4-2.0) mmol/L Calcium 8.8 (8.5-10.1) mg/dl POC Ioniz Calcium Mariusz (1.12-1.32) mmol/l Magnesium 2.2 (1.8-2.4) mg/dl Total Bilirubin 0.4 (0.2-1) mg/dl AST 32 (15-37) U/L ALT 36 (12-78) U/L Alkaline Phosphatase 122 H (45-117) U/L Troponin I < 0.015 (0-0.045) ng/ml Total Protein 6.8 (6.4-8.2) gm/dl Albumin 3.0 L (3.4-5.0) gm/dl Globulin 3.8 (2.5-4.0) gm/dl Albumin/Globulin Ratio 0.8 L (0.9-2) Procalcitonin (0-0.5) ng/ml COVID-19 Eval Order COVID-19 PCR (Negative) 10/10/19 10/10/19 10/10/19 Range/Units 11:10 11:15 11:15 WBC (4.8-10.8) K/uL RBC (4.7-6.1) M/uL Hgb (14.0-18.0) g/dL POC Hgb (14.0-18.0) g/dl Hct (42-52) % POC Hct (42-52) % MCV (80-100) fL MCH (25-34) pg MCHC (32-36) g/dL RDW Std Deviation (36.4-46.3) fL RDW Coeff of Michelle (11.5-14.5) % Plt Count (130-400) K/uL MPV (7.4-10.4) fL Immature Gran % (Auto) % Neut % (Auto) % Lymph % (Auto) % Bartholomew % (Auto) % Eos % (Auto) % Baso % (Auto) % Neut # (Auto) (1.4-6.5) K/uL Lymph # (Auto) (1.2-3.4) K/uL Bartholomew # (Auto) (0.11-0.59) K/uL Eos # (Auto) (0-0.5) K/uL Baso # (Auto) (0-0.2) K/uL Immature Gran # (Auto) (0.00-0.02) K/uL PT (9.0-12.0) Seconds INR (0.9-1.1) APTT (21.0-31.0) Seconds PTT Ratio POC Sodium (135-144) mmol/L Sodium (136-145) mmol/L POC Potassium (3.3-5.0) mmol/L Potassium (3.5-5.1) mmol/L POC Chloride (101-112) mmol/L Chloride (98-107) mmol/L Carbon Dioxide (21-32) mmol/L POC Total CO2 (24-31) mmol/L Anion Gap (3-11) POC Anion Gap (16-25) mmol/L POC BUN (7-18) mg/dl BUN (7-18) mg/dl Creatinine (0.6-1.4) mg/dl POC Creatinine (0.6-1.3) mg/dl Est Cr Clr Drug Dosing ml/min Est GFR ( Amer) Est GFR (Non-Af Amer) BUN/Creatinine Ratio (10-20) Glucose (70-99) mg/dl POC Glucose (70-99) mg/dl POC Glucose (other) (70-99) mg/dl Lactate (0.4-2.0) mmol/L Calcium (8.5-10.1) mg/dl POC Ioniz Calcium Mariusz (1.12-1.32) mmol/l Magnesium (1.8-2.4) mg/dl Total Bilirubin (0.2-1) mg/dl AST (15-37) U/L ALT (12-78) U/L Alkaline Phosphatase (45-117) U/L Troponin I (0-0.045) ng/ml Total Protein (6.4-8.2) gm/dl Albumin (3.4-5.0) gm/dl Globulin (2.5-4.0) gm/dl Albumin/Globulin Ratio (0.9-2) Procalcitonin 0.11 (0-0.5) ng/ml COVID-19 Eval Order Covid19 Done at [facility] COVID-19 PCR NEGATIVE (Negative) 10/10/19 10/10/19 10/10/19 Range/Units 11:20 11:40 12:46 WBC (4.8-10.8) K/uL RBC (4.7-6.1) M/uL Hgb (14.0-18.0) g/dL POC Hgb 9.2 L (14.0-18.0) g/dl Hct (42-52) % POC Hct 27 L (42-52) % MCV (80-100) fL MCH (25-34) pg MCHC (32-36) g/dL RDW Std Deviation (36.4-46.3) fL RDW Coeff of Michelle (11.5-14.5) % Plt Count (130-400) K/uL MPV (7.4-10.4) fL Immature Gran % (Auto) % Neut % (Auto) % Lymph % (Auto) % Bartholomew % (Auto) % Eos % (Auto) % Baso % (Auto) % Neut # (Auto) (1.4-6.5) K/uL Lymph # (Auto) (1.2-3.4) K/uL Bartholomew # (Auto) (0.11-0.59) K/uL Eos # (Auto) (0-0.5) K/uL Baso # (Auto) (0-0.2) K/uL Immature Gran # (Auto) (0.00-0.02) K/uL PT (9.0-12.0) Seconds INR (0.9-1.1) APTT (21.0-31.0) Seconds PTT Ratio POC Sodium 142 (135-144) mmol/L Sodium (136-145) mmol/L POC Potassium 4.7 (3.3-5.0) mmol/L Potassium (3.5-5.1) mmol/L POC Chloride 113 H (101-112) mmol/L Chloride (98-107) mmol/L Carbon Dioxide (21-32) mmol/L POC Total CO2 18 L (24-31) mmol/L Anion Gap (3-11) POC Anion Gap 16.0 (16-25) mmol/L POC BUN 85 H (7-18) mg/dl BUN (7-18) mg/dl Creatinine (0.6-1.4) mg/dl POC Creatinine 3.3 H (0.6-1.3) mg/dl Est Cr Clr Drug Dosing ml/min Est GFR ( Amer) Est GFR (Non-Af Amer) BUN/Creatinine Ratio (10-20) Glucose (70-99) mg/dl POC Glucose 109 H (70-99) mg/dl POC Glucose (other) 57 L* (70-99) mg/dl Lactate 0.6 (0.4-2.0) mmol/L Calcium (8.5-10.1) mg/dl POC Ioniz Calcium Mariusz 1.22 (1.12-1.32) mmol/l Magnesium (1.8-2.4) mg/dl Total Bilirubin (0.2-1) mg/dl AST (15-37) U/L ALT (12-78) U/L Alkaline Phosphatase (45-117) U/L Troponin I (0-0.045) ng/ml Total Protein (6.4-8.2) gm/dl Albumin (3.4-5.0) gm/dl Globulin (2.5-4.0) gm/dl Albumin/Globulin Ratio (0.9-2) Procalcitonin (0-0.5) ng/ml COVID-19 Eval Order COVID-19 PCR (Negative) Imaging Data Radiologist's Impression: [place], [place] [phone] XRay Report Patient: JEIMY GALINDO AAdmit Date: 10/10/19 MR#: [id number]: [facility] [employer] Acct ID:[id number]: Date: [address] Zip: [place] [address] Age: 44Location: ED Sex: M Room/Bed: Att Phy:Diagnosis: SOB Verenice Phy: Kobe Samson MDService Date: 10/10/19 Fam Phy:Interpreting Phy: Nestor Recinos MD Admit Phy: Ordering Phy: Edi Davis MD cc: ~ XR chest 1V portable CLINICAL HISTORY: SEPSIS dyspnea COMPARISON STUDY: 03/30/2019 FINDINGS: Moderate cardiomegaly. Prominent pulmonary vasculature suggesting congestive heart failure. Possible basilar infiltrates are not excluded. IMPRESSION: Congestive heart failure versus developing bibasilar parenchymal infiltrates. ACT 112: Negative or not required by law. The above report was generated using voice recognition software. It may contain grammatical, syntax or spelling errors. Electronically signed by: Nestor Recinos M.D. 10/10/2019 12:08 PM Dictated: 10/10/19 1203 Transcribed: 10/10/19 1203 ECG Data Attestation: I personally reviewed and interpreted this ECG as follows: Indication: + SOB/dyspnea Rate (beats per minute): 100 Rhythm: + normal sinus ECG Intervals/blocks: + Normal QT-c (410) ECG [place]: + Normal ECG ST segments: + T-wave inversions (Lateral); no ST depression and no ST elevation Comparison ECG Date: from (03/29/2019) Change: no significant change MDM Narrative Patient was seen and evaluated as above in room A9. Review was performed of nursing notes and vital signs. I did review pertinent previous visits and patient history. After obtaining a thorough history and physical examination the above work up was performed. This is a 44-year-old male who presents the emergency department complaining of shortness of breath. The patient is immunocompromised as he has a history of a kidney transplant. He was sent for chest x-ray which is concerning for congestive heart failure versus pneumonia. He is running a fever. He was given Lasix and started on broad-spectrum antibiotics. I did discuss his case with hospitalist service who did agree to meet the patient. An order was placed for continuous cardiac monitoring. The monitor shows a rate of 70 with Normal SInus rhythm. The patient was evaluated during the global COVID-19 pandemic, and that diagnosis was suspected/considered upon their initial presentation. Their evaluation, treatment and testing was consistent with current guidelines for patients who present with complaints or symptoms that may be related to COVID- 19. Impression & Plan Chronic steroid use, Community acquired bacterial pneumonia, Volume overload, CHF exacerbation Discharge Plan Visit Data Chief Complaint: Shortness of Breath/Dyspnea Stated Complaint: SOB ED Provider: Edi Davis Discharge Problem: Chronic steroid use, Community acquired bacterial pneumonia, Volume overload, CHF exacerbation Patient Disposition: Admitted As Inpatient Discharge Instructions Interventions: ED Discharge Assessment Last Done: 10/10/19 14:22 Discharge Problem: Volume overload Qualifiers: Hypervolemia type: unspecified Qualified Code(s): E87.70 - Fluid overload, uns pecified CHF exacerbation Qualifiers: Heart failure type: unspecified Qualified Code(s): I50.9 - Heart failure, unspecified
--- NOTE | 2019-10-10 13:52 | History & Physical Report ---
Date of Service October 10, 2019 Assessment & Plan (1) Sepsis: Met SIRS criteria on arrival in ER but currently is not septic appearing. Lactic acid 0.6. No IV fluids due to volume overload - suspected as a consequence of infection. (2) CHF exacerbation: Recent echo in August with preserved ejection fraction, no need to repeat currently. Small pericardial effusion noted but as long as patient improving do not see a reason to repeat for this currently, no chest pain to suggest uremic pericarditis etc... Moderate mitral regurg (suspect this is murmur heard on auscultation) Low Na, heart healthy diet, fluid restrict 1500ml Daily weights, I&Os Already appears to be doing better after 40mg IV lasix in ER, no further diuresis planned for today (3) Volume overload: as above (4) Community acquired bacterial pneumonia: Questionable diagnosis since procalcitonin negative although given immunosuppression patient may not present in usual sense. Based on my read of his CXR with unilateral lung auscultation findings I am suspicious enough of pneumonia that will continue antibiotics for this. T 37.8 on arrival to ER. Continue levaquin + cefepime. Hold his chronic suppression doxycycline while on Abx. MRSA nose swab to further assess need for MRSA coverage (no history of this). Immunosuppressed - hence pseudomonas coverage but can likely be narrowed tomorro w if doing well overnight. (5) Diabetes type I: Patient to manage his own insulin with insulin pump. Pregabalin 75mg BID for diabetic neuropathy HbA1C 7.4 in August BSG ACHS to check on his management - if he is getting confused or hypoxic will take over care of this T1DM diet (6) Kidney transplant recipient: CKD stage IV Consult nephrology for help with inpatient and outpatient fluid management (7) Chronic steroid use: Continue his usual prednisone 5mg PO daily If BP starts dropping consider stress dose steroids (8) Anemia: of CKD, at baseline (9) Depression: Continue sertraline 50mg HS (10) CAD in [place] artery: Continue clopidogrel, metoprolol succinate, no ACEi/ARB due to CKD stage IV, atorvastatin. Troponin negative on admission and no acute sudden worsening today therefore not ACS. (11) DVT prophylaxis: Heparin 5000 units SQ BID Admission and Anticipated Discharge Date Admission Date: 10/10/2019 History of Present Illness Chief Complaint: Shortness of breath and cough Primary Care Provider: MD Constantine Acuña is a 44 year old male with T1DM and kidney transplant who presents to the ER with shortness of breath and cough. He reports having a dry cough for the last 1.5 weeks - previously put this down to his allergies worse this year. Feels like there is something stuck in his throat. No mouth pain or difficulty swallowing. Shortness of breath came on gradually 2 days ago in the afternoon. Mainly on exertion and on lying flat. No PND, palpitations, chest pain, presyncope or syncope. He reports no significant change in his diet, fluid intake and his lasix dosing has not been changed. He does not weigh himself daily. Associated right leg swelling. No fevers or chills. No loss of taste or smell. No prior MRSA or multi-drug resistant infections known. Kidney transplant 2001 due to diabetic nephropathy, currently taking sirolimus and prednisone for immunosuppression. Allergies Allergy/AdvReac Type Severity Reaction Status Date / Time PORK INSULIN Allergy Unknown Hives Uncoded 10/10/19 12:11 Home Medications Home Medications Medication Instructions Recorded Confirmed Type glucagon (human recombinant) 1 mg 1 mg IM .COMPLEX PRN 10/05/18 10/10/19 History solution for injection lancets 33 gauge #100 ea 10/05/18 09/24/19 History aspirin 81 mg PO HS 11/23/18 10/10/19 History Dexcom G6 Computer Engineering Technician #1 ea NS 11/30/18 09/24/19 Rx Dexcom G6 Sensor #9 ea NS 11/30/18 09/24/19 Rx Dexcom G6 Transmitter #1 ea NS 11/30/18 09/24/19 Rx Wheeled Walker #1 ea 02/22/19 09/24/19 Rx Wheeled Walker #1 ea 02/22/19 09/24/19 Rx allopurinol 300 mg tablet 300 mg PO HS #90 tab 03/16/19 10/10/19 Rx doxycycline hyclate 50 mg capsule 50 mg PO BID #180 cap 03/16/19 10/10/19 Rx prednisone 5 mg tablet 5 mg PO HS #90 tab 03/16/19 10/10/19 Rx sertraline 50 mg tablet 50 mg PO HS #90 tab 03/16/19 10/10/19 Rx clopidogrel [Plavix] 75 mg PO QAM 03/29/19 10/10/19 History atorvastatin 80 mg tablet 80 mg PO HS #90 tab 06/23/19 10/10/19 Rx pantoprazole 40 mg tablet,delayed 40 mg PO HS #90 tab 06/23/19 10/10/19 Rx release pregabalin 75 mg capsule 75 mg PO BID #60 cap 06/23/19 10/10/19 Rx sirolimus 2 mg tablet 4 mg PO HS #180 tab 06/23/19 10/10/19 Rx insulin aspart U-100 100 unit/mL See Rx Instructions .ROUTE 07/12/19 10/10/19 History subcutaneous solution .COMPLEX ml furosemide 40 mg tablet 80 mg PO Q OTHER DAY tab 09/06/19 10/10/19 History insulin syringe-needle U-100 0.5 #100 ea 09/09/19 09/24/19 Rx mL 31 gauge x 07/16" metoprolol succinate 75 mg PO HS 10/10/19 10/10/19 History Past Med/Surg History Social History Smoking Status: Never smoker Second Hand Exposure: No; Do You Dip or Chew Tobacco: Yes; Hx Alcohol Use: Yes Alcohol type: beer Hx Substance Use: No Preferred Language: Portuguese Communication Ability: Effective Automotive Engineer Required: No Beliefs That Will Affect Care: None marital status: Current Living Situation: Spouse Other Information That Helps Us Care for You: No Feels Safe at Home: Yes Safety Concerns: Feels Safe At This Time Review of Systems Review of Systems: All systems reviewed & are unremarkable except as noted in HPI & below Physical Exam Constitutional: well developed and well nourished; no acute distress Eyes: PERRL, conjunctivae normal, anicteric sclerae ENMT: external ear and nose normal, oropharynx normal Neck: trachea midline, no thyromegaly Respiratory: normal respiratory effort and able to speak in complete sentences; no respiratory distress, no labored breathing, no retractions, does not use accessory muscles, no cough and expiratory phase not prolonged Auscultation: + crackles (Fine right base); no diminished lung sounds, no rales, no rhonchi and no wheezes Cardiovascular: Heart Sounds: + murmur (LLSB, holosystolic) Vessels: no JVD Extremities: normal capillary refill and + pedal edema (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, left BKA); no calf tenderness Musculoskeletal: no cyanosis or clubbing, extremities motor strength 5/5 Skin: no rashes, warm and dry Neurologic: moves all extremities and awake; not confused Psychiatric: A+Ox3, euthymic affect Genitourinary: no CVA tenderness Lymphatic: no cervical or axillary lymphadenopathy Results & Data Results & Data ([facility]) Vital Signs (Past 12 Hours) Vital Signs Temp Pulse Resp BP Pulse Ox 10/10/19 13:22 36.7 C 10/10/19 13:00 91 H 25 H 120/74 96 10/10/19 11:30 0 L 25 H 163/98 H 94 10/10/19 11:19 98 H 20 167/104 H 94 10/10/19 11:00 99 H 23 177/102 H 92 10/10/19 10:26 102 H 24 183/106 H 94 10/10/19 10:13 37.8 C H 100 H 20 178/104 H 98 Diagnostic Findings XR chest 1V portable IMPRESSION: Congestive heart failure versus developing bibasilar parenchymal infiltrates. ECG Indication: SOB/dyspnea Rate (beats per minute): 100 Rhythm: normal sinus (low voltage QRS) Findings: + other (TW flattening lateral leads) Comparison ECG Date: from (03/29/2019) Change: no significant change Code Status & VTE Plan Code Status Full VTE Prophylaxis Plan VTE Prophylaxis will be ordered: Yes PG Care Time/CCT Total # of Minutes Spent Total Time Spent with Patient: Total time spent is greater than 50% in coordination of care (as documented) at patient's floor/unit and/or counseling patient: Coding Level of Care Code 58843 Initial Inpt Care Lvl 3 Diagnoses Sepsis A41.9 Sepsis acute organ dysfunction status: unspecified Sepsis type: sepsis due to unspecified organism CHF exacerbation I50.9 Heart failure type: unspecified Volume overload E87.70 Hypervolemia type: unspecified Community acquired bacterial pneumonia J15.9 Diabetes type I E10.9 Kidney transplant recipient Z94.0 Chronic steroid use Anemia D64.89 Anemia type: other cause Other causes of anemia: other cause, not classified Depression F33.9 Depression Type: major depressive disorder Major depression recurrence: recurrent Active/Remission status: remission status unspecified CAD in [place] artery I25.10 DVT prophylaxis Z29.9 (1) CHF exacerbation Heart failure type: unspecified Qualified Code(s): I50.9 - Heart failure, unspecified (2) Sepsis Sepsis acute organ dysfunction status: unspecified Sepsis type: sepsis due to unspecified organism Qualified Code(s): A41.9 - Sepsis, unspecified organism (3) Volume overload Hypervolemia type: unspecified Qualified Code(s): E87.70 - Fluid overload, unspecified (4) Anemia Anemia type: other cause Other causes of anemia: other cause, not classified Qualified Code(s): D64.89 - Other specified anemias (5) Depression Depression Type: major depressive disorder Major depression recurrence: recurrent Active/Remission status: remission status unspecified Qualified Code(s): F33.9 - Major depressive disorder, recurrent, unspecified
[2019-10-10] MEDS ORDERED: COUGH DROP (SUGAR FREE) LOZ 24 LOZ/1 BOX BUCCAL ONE (16:08)
[2019-10-10 17:01] LABS: Appearance Urine Clear (Clear); Bacteria Urine Automated Negative (Negative); Bilirubin Urine Negative (Negative); Blood Urine 1+ (Negative); Cast Urine Automated 0 /lpf (0-5); Color Urine Yellow; Epithelial Cell Urine Auto 0-5 /lpf (0-5); Glucose Urine UA Trace (Negative); Ketones Urine Negative (Negative); Leukocyte Esterase Urine Negative (Negative); Nitrite Urine Negative (Negative); Protein Urine 2+ (Negative); RBC Urine Automated 0-4 /hpf (0-4); Specific Gravity Urine 1.011 (1.000-1.030); Urobilinogen Urine Negative (Negative); WBC Urine Automated 0 /hpf (0-5)
[2019-10-10] MEDS ORDERED: ACETAMINOPHEN 325 MG TAB PO PRN (19:36)
[2019-10-10] MEDS: HEPARIN SOD 5,000 UNIT/0.5 ML VIAL SQ SCH (20:14)
[2019-10-10] MEDS: PREGABALIN 75 MG CAP PO SCH (20:14)
[2019-10-10] MEDS ORDERED: predniSONE 5 MG TAB PO SCH (21:00)
[2019-10-10] MEDS ORDERED: SIROLIMUS 0.5 MG TABLET PO SCH (21:00)
[2019-10-10] MEDS ORDERED: METOPROLOL SUCC 50MG EXT REL TAB PO SCH (21:00)
[2019-10-10] MEDS ORDERED: allopurinoL 300 MG TAB PO SCH (21:00)
[2019-10-10] MEDS ORDERED: PANTOprazole 40 MG TAB PO SCH (21:00)
[2019-10-10] MEDS ORDERED: ATORVASTATIN 40 MG TAB PO SCH (21:00)
[2019-10-10] MEDS ORDERED: DOXYCYCLINE HYCLATE 50 MG CAP PO SCH (21:00)
[2019-10-10] MEDS ORDERED: SERTRALINE HCL 50 MG TABLET PO SCH (21:00)
[2019-10-10] MEDS ORDERED: ASPIRIN 81 MG ECTAB PO SCH (21:00)
[2019-10-10] MEDS: BENZONATATE 100 MG CAPSULE PO PRN (21:41)
[2019-10-11 06:16] LABS: Basophils # (auto) 0.01 K/uL (0-0.2); Basophils % (auto) 0.1 %; Eosinophils # (auto) 0.02 K/uL (0-0.5); Eosinophils % (auto) 0.3 %; Hematocrit (blood only) 24.7 % (42-52); Hemoglobin 7.7 g/dL (14.0-18.0); Immature Granulocytes # (auto) 0.02 K/uL (0.00-0.02); Immature Granulocytes % (auto) 0.3 %; Lymphocytes # (auto) 1.28 K/uL (1.2-3.4); Lymphocytes % (auto) 16.7 %; Mean Corpuscular Hemoglobin 25.5 pg (25-34); Mean Corpuscular Hgb Conc 31.2 g/dL (32-36); Mean Corpuscular Volume 81.8 fL (80-100); Mean Platelet Volume 12.4 fL (7.4-10.4); Monocytes % (auto) 7.8 %; Neutrophils # (auto) 5.75 K/uL (1.4-6.5); Neutrophils % (auto) 74.8 %; Platelet Count 160 K/uL (130-400); RDW Coefficient of Variation 16.1 % (11.5-14.5); RDW Standard Deviation 48.5 fL (36.4-46.3); Red Blood Count 3.02 M/uL (4.7-6.1); White Blood Count 7.68 K/uL (4.8-10.8)
[2019-10-11 06:40] LABS: Schistocytes 1+
[2019-10-11 06:51] LABS: Albumin Level 2.4 gm/dl (3.4-5.0); BUN Creatinine Ratio 23.2 (10-20); Calcium 8.3 mg/dl (8.5-10.1); Creatinine Clr Calc Pharmacy 24.1 ml/min; Est GFR (African American) 24.1; Est GFR (Non-African American) 20.8; Potassium 4.8 mmol/L (3.5-5.1)
[2019-10-11 06:54] LABS: Albumin Globulin Ratio 0.7 (0.9-2); Bilirubin,Total 0.4 mg/dl (0.2-1); Globulin 3.4 gm/dl (2.5-4.0); Total Protein 5.8 gm/dl (6.4-8.2)
--- NOTE | 2019-10-11 07:58 | Hospitalist Progress Note ---
Date of Service October 11, 2019 Assessment & Plan (1) Sepsis: Met SIRS criteria on arrival in ER but currently is not septic appearing. Lactic acid 0.6. No IV fluids due to volume overload - suspected as a consequence of infection (2) Community acquired bacterial pneumonia: Continue levaquin + cefepime. MRSA nose swab to further assess need for MRSA coverage (no history of this) Immunosuppressed - hence pseudomonas coverage but can likely be narrowed tomorrow if doing well overnight (3) CHF exacerbation: Low Na, heart healthy diet, fluid restrict 1500ml Daily weights, I&Os Already appears to be doing better after 40mg IV lasix in ER, no further diuresis planned for today (4) Volume overload: (5) Diabetes type I: Patient to manage his own insulin with insulin pump. HbA1C 7.4 in August [facility] ACHS to check on his management - if he is getting confused or hypoxic will take over care of this T1DM diet (6) DVT prophylaxis: (7) Acute respiratory failure with hypoxia: (8) Kidney transplant recipient: Consult nephrology for help with inpatient and outpatient fluid management (9) Chronic steroid use: Continue his usual prednisone 5mg PO daily If BP starts dropping consider stress dose steroids Admission and Anticipated Discharge Date Admission Date: October 10, 2019 Results & Data Results & Data ([facility]) Vital Signs (Past 12 Hours) Vital Signs Temp Pulse Pulse Resp BP Pulse Ox 10/11/19 07:16 98.2 F 83 20 150/85 H 96 10/11/19 03:12 98.2 F 83 18 132/84 96 10/11/19 00:32 103 H 10/10/19 23:27 99.1 F 95 H 18 128/79 96 PG Care Time/CCT Total # of Minutes Spent Total Time Spent with Patient: Total time spent is greater than 50% in coordination of care (as documented) at patient's floor/unit and/or counseling patient: Coding Diagnoses Sepsis A41.9 Sepsis acute organ dysfunction status: unspecified Sepsis type: sepsis due to unspecified organism Community acquired bacterial pneumonia J15.9 CHF exacerbation I50.9 Heart failure type: unspecified Volume overload E87.70 Hypervolemia type: unspecified Diabetes type I E10.9 DVT prophylaxis Z29.9 Acute respiratory failure with hypoxia J96.01 Kidney transplant recipient Z94.0 Chronic steroid use (1) CHF exacerbation Heart failure type: unspecified Qualified Code(s): I50.9 - Heart failure, unspecified (2) Sepsis Sepsis acute organ dysfunction status: unspecified Sepsis type: sepsis due to unspecified organism Qualified Code(s): A41.9 - Sepsis, unspecified organism (3) Volume overload Hypervolemia type: unspecified Qualified Code(s): E87.70 - Fluid overload, unspecified
[2019-10-11] MEDS: HEPARIN SOD 5,000 UNIT/0.5 ML VIAL SQ SCH (08:15)
[2019-10-11] MEDS: PREGABALIN 75 MG CAP PO SCH (08:18)
[2019-10-11] MEDS ORDERED: CLOPIDOGREL BISULFATE 75 MG TAB PO SCH (09:00)
[2019-10-11] MEDS ORDERED: CEFEPIME 2,000 MG in SYRINGE 7.5 ML IV SCH (13:00)
--- NOTE | 2019-10-11 14:42 | XCELERA ---
[id number]
[2019-10-11] MEDS: BENZONATATE 100 MG CAPSULE PO PRN (15:00)
--- NOTE | 2019-10-11 19:22 | Discharge Summary ---
Date of Service October 11, 2019 Admission HPI Per Admitting Provider Constantine Dalton is a 44 year old male with T1DM and kidney transplant who presents to the ER with shortness of breath and cough. He reports having a dry cough for the last 1.5 weeks - previously put this down to his allergies worse this year. Feels like there is something stuck in his throat. No mouth pain or difficulty swallowing. Shortness of breath came on gradually 2 days ago in the afternoon. Mainly on exertion and on lying flat. No PND, palpitations, chest pain, presyncope or syncope. He reports no significant change in his diet, fluid intake and his lasix dosing has not been changed. He does not weigh himself daily. Associated right leg swelling. No fevers or chills. No loss of taste or smell. No prior MRSA or multi-drug resistant infections known. Kidney transplant 2001 due to diabetic nephropathy, currently taking sirolimus and prednisone for immunosuppression. Principal Diagnosis pneumonia Heart failure preserved EF Discharge Exam The patient appeared well he is recovered and feels returned to baseline Vital signs as documented. Lungs are clear to auscultation and appear unlabored Cardiac exam, Rhythm is regular.. systolic murmur that is not new, rubs or gallops. Abdominal exam reveals normal bowel sounds, soft non tender, no masses Neurologic exam is alert and oriented, no focal loss of strength or sensation Skin is without bruises or rashes Psychologically is without concerns for anxiety or depression Discharge Data Allergies Allergy/AdvReac Type Severity Reaction Status Date / Time PORK INSULIN Allergy Unknown Hives Uncoded 10/10/19 12:11 Consultations 10/10/19 12:34 ED Decision to Admit Stat 10/10/19 14:40 Consult Nephrology Routine Hospital Course (1) Sepsis: Met SIRS criteria on arrival in ER but quickly resolved sepsis ruled out Lactic acid 0.6. (2) CHF exacerbation: Recent echo in August with preserved ejection fraction, Repeat echo continues with preverved EF. Small pericardial effusion Moderate mitral regurg (suspect this is murmur heard on auscultation) Pt admits to dietary indiscression eating a radha at a local resturant last week continues on Low Na, heart healthy diet, Already appears to be doing better after 40mg IV lasix in ER, will ammend outpt regime to 40 mg po lasix daily and have re evaluated by Dr Samson( previoulsy was on 80 QOD) (3) Volume overload: as above (4) Community acquired bacterial pneumonia: Questionalbe diagnosis due to quick turn around, since does have minor CXR changes and is immunosupressed will Continue levaquin renal dose levaquin ( holding typical doxycycline ) (5) Diabetes type I: returns to home insulin with insulin pump. Pregabalin 75mg BID for diabetic neuropathy HbA1C 7.4 in August [facility] ACHS to check on his management - if he is getting confused or hypoxic will take over care of this T1DM diet (6) Kidney transplant recipient: CKD stage IV follow up with Dr Samson in one week (7) Chronic steroid use: Continue his usual prednisone 5mg PO daily, no signs of stress issues (8) Anemia: of CKD, at baseline (9) Depression: Continue sertraline 50mg HS (10) CAD in [place] artery: Continue clopidogrel, metoprolol succinate, no ACEi/ARB due to CKD stage IV, atorvastatin. Troponin negative on admission and no acute sudden worsening today therefore not ACS. Total Time Total Time Spent Total Time Spent (In Minutes): It required greater than 30 minutes to prepare this patient for discharge Discharge Plan Discharge Items Patient Disposition: Home - Self-Care Reason For Visit: SEPSIS, PNA, CHF Discharge Diagnosis: pneumonia Activity: Resume your previous activity Non-emergency contact: Primary Care Provider Call non-emergency contact if: you have any medication questions and your symptoms worsen Follow-up/Referrals: Kobe Samson MD [Primary Care Provider] - Diet: Low Sodium (2gm) Ambulatory Orders: Basic Metabolic Panel (Routine) Timeframe: 2 Days Location: Determined by Patient Ordered By: Jn Corado Complete Blood Count no Diff (Routine) Timeframe: 2 Days Location: Determined by Patient Ordered By: Jn Corado Addtl Attending Provider Instructions: please hold your Doxycycline while taking your levafloxacin, start taking levofloxacin on 10/11 every other day x 3 doses please limit salt intake take you Lasix at a lower dose every day until you 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 YOUR heart echocardiogram shows good hear function, for caution please weigh yourself daily to help track your bodies fluid balance, if you levar more than 3 pounds a day or 5 pounds in a week please contact Dr Samson's office Pending Studies at Discharge: Yes Studies:: urine culture Stand-Alone Forms: [facility], Smoking Cessation Medications and DC Order Prescriptions: New benzonatate [Tessalon Perles] 100 mg Capsule 100 mg PO TID PRN (Reason: cough) Qty: 10 RF: 0 levofloxacin [Levaquin] 750 mg tablet 750 mg PO Q48H Qty: 3 RF: 0 Continued (DME) Dexcom G6 Shingle Sawyer misc See Dose Instructions .ROUTE .MEDSUPPLY Qty: 1 RF: 0 (DME) Dexcom G6 Sensor device See Dose Instructions .ROUTE .MEDSUPPLY Qty: 9 RF: 3 (DME) Dexcom G6 Transmitter device See Dose Instructions .ROUTE .MEDSUPPLY Qty: 1 RF: 3 allopurinol 300 mg tablet 300 mg PO HS Qty: 90 RF: 3 doxycycline hyclate 50 mg capsule 50 mg PO BID Qty: 180 RF: 3 prednisone 5 mg tablet 5 mg PO HS Qty: 90 RF: 3 sertraline 50 mg tablet 50 mg PO HS Qty: 90 RF: 3 atorvastatin 80 mg tablet 80 mg PO HS Qty: 90 RF: 3 pantoprazole 40 mg tablet,delayed release (DR/EC) 40 mg PO HS Qty: 90 RF: 3 pregabalin [Lyrica] 75 mg capsule 75 mg PO BID Qty: 60 RF: 5 sirolimus 2 mg tablet 4 mg PO HS Qty: 180 RF: 1 (DME) insulin syringe-needle U-100 [BD Insulin Syringe Ultra-Fine] 0.5 mL 31 gauge x 5/16" syringe See Dose Instructions .ROUTE .MEDSUPPLY Qty: 100 RF: 3 Glucagon Emergency Kit (human) 1 mg recon soln 1 mg IM .COMPLEX PRN (Reason: LOW BLOOD SUGAR) RF: 0 (DME) lancets [OneTouch Delica Lancets] 33 gauge misc See Dose Instructions .ROUTE .MEDSUPPLY Qty: 100 RF: 0 Novolog U-100 Insulin aspart 100 unit/mL solution See Rx Instructions .ROUTE .COMPLEX RF: 0 aspirin 81 mg Tablet,Delayed Release (Dr/Ec) 81 mg PO HS RF: 0 clopidogrel [Plavix] 75 mg tablet 75 mg PO QAM RF: 0 metoprolol succinate 25 mg capsule,sprinkle,ER 24hr 75 mg PO HS RF: 0 Changed furosemide [Lasix] 40 mg tablet 40 mg PO DAILY Qty: 0 RF: 0 Discontinued (DME) Wheeled Walker Misc See Rx Instructions .ROUTE .MEDSUPPLY Qty: 1 RF: 0 (DME) Wheeled Walker Misc See Rx Instructions .ROUTE .MEDSUPPLY Qty: 1 RF: 0 Discharge Orders: Discharge Order (Routine); Ordered 10/11/19 Ordered By: Jn Corado Admission Data Admit Date/Time: 10/10/19 13:49 Attending Provider: Jn Corado Admit Provider: Kobe Brian Primary Care Provider: Kobe Samson Other Providers: Kobe Brian ; Edi Amador Other Interventions: Discharge Summary Assessment (RN) Last Done: 10/11/19 15:24 DC Date/Time DO NOT enter until pt leaves facility: 10/11/19 16:22 Coding Level of Care Code D/C Day Management >30 mins Diagnoses Sepsis A41.9 Sepsis acute organ dysfunction status: unspecified Sepsis type: sepsis due to unspecified organism CHF exacerbation I50.9 Heart failure type: unspecified Volume overload E87.70 Hypervolemia type: unspecified Community acquired bacterial pneumonia J15.9 Diabetes type I E10.9 Kidney transplant recipient Z94.0 Chronic steroid use Anemia D64.89 Anemia type: other cause Other causes of anemia: other cause, not classified Depression F33.9 Depression Type: major depressive disorder Major depression recurrence: recurrent Active/Remission status: remission status unspecified CAD in [place] artery I25.10
[2019-10-12] MEDS ORDERED: LEVOFLOXACIN/D5W 750 MG/150 ML BAG IV SCH (13:00)
--- NOTE | 2019-10-20 16:07 | Coding Query ---
CONGESTIVE HEART FAILURE To Promote full compliance with coding requirements relating to patient care, physician participation is requested in all cases of inpatient coder uncertainty. Please assist us with the following questions. A diagnosis of Congestive Heart Failure is documented in the patient's medical record. To accurately code this diagnosis and to compare patient severity, we ask that you specify the type of heart failure by placing an X within the parenthesis (x). SYSTOLIC HEART FAILURE ( ) Acute ( ) Chronic ( ) Acute on Chronic ( ) Rheumatic ( ) Unknown DIASTOLIC HEART FAILURE ( ) Acute ( ) Chronic ( [id number]) Acute on Chronic ( ) Rheumatic ( ) Unknown COMBINED SYSTOLIC AND DIASTOLIC HEART FAILURE ( ) Acute ( ) Chronic ( ) Acute on Chronic ( ) Rheumatic ( ) Unknown Was the CHF Present On Admission? Please check the appropriate box: ( ) Present on Admission ( ) Not Present On Admission ( ) Clinically undetermined Thank you CLARISSA Bobo [facility]
--- NOTE | 2019-10-20 16:17 | Coding Query ---
CODING QUERY To promote full compliance with coding requirements relating to patient care, provider participation is requested in all cases of mining consultant uncertainty. Please assist us with the question(s) below: Coding Question(s): Patient admitted with Sepsis which was ruled out. Discharge Summary mentions patient was treated for Bacterial Pneumonia.; documentation in DS further stated 'questionnable' Bacterial Pneumonia'. Seeking to clarify conflicting documentation . Please check the following response pertaining to the pneumonia. Thanks for your help ! CLARISSA Bobo [facility] Physician's Response(s): ___TC___ Patient was treated for Bacterial Pneumonia during this Inpatient Stay Patient was not treated for Bacterial Pneumonia during this Inpatient Stay Cannot Clinically Correlate if the Bacterial Pneumonia was treated Other: Please document: Principal Diagnosis: "that condition established after study, to be chiefly responsible for occasioning the admission of the patient to the hospital for care." Co-Existing Principal Diagnosis: "when two or more diagnoses equally meet the criteria for principal diagnosis as determined by the circumstances of admission, diagnostic work up, and/or therapy provided, and the Alphabetic Index, Tabular List, or another coding guideline does not provide sequencing direction, any one of the diagnoses may be sequenced first." "When the physician has documented what appears to be a current diagnosis in the body of the record, but has not included the diagnosis in the final diagnostic statement, the physician should be asked whether the diagnosis should be added." (Source [facility]oding [facility] 2 QTR90. p3-4) MARQUISD
== END 2019-10-11 16:22 | disposition home or self-care (01) | DRG 291 ==
LOC: ED 10:10 → 2E 13:49 → SUATTDRO 13:49 → 2E 14:22

== ENCOUNTER 2019-12-01 08:55 | Observation (INO) ==
--- NOTE | 2019-11-22 15:16 | Anesthesiology Consultation ---
Date of Service November 22, 2019 Assessment & Plan Chart Review Chart Review: Pending: Refer to Additional Notes / Consult section and Patient NOT seen in Pre Admission Testing Consults Requested cardiac ASA ASA4 Proposed Anesthesia Anesthesia Type: MAC Spinal History Surgery Operation Date: 12/01/19 11:00 Proposed Procedures p Left Total Hip Arthroplasty - Bill Lima MD Height/Weight Height: 5 ft 5 in Weight: 68.039 kg Allergies Allergy/AdvReac Type Severity Reaction Status Date / Time PORK INSULIN Allergy Unknown Hives Uncoded 11/22/19 13:19 Medications Home Medications Medication Instructions Recorded Confirmed Last Taken glucagon (human recombinant) 1 mg 1 mg IM .COMPLEX PRN 10/05/18 11/22/19 Unknown solution for injection lancets 33 gauge #100 ea 10/05/18 11/09/19 Unknown aspirin 81 mg PO HS 11/23/18 11/22/19 10/09/19 Dexcom G6 Senior Accounts Payable Clerk #1 ea NS 11/30/18 11/09/19 Unknown Dexcom G6 Sensor #9 ea NS 11/30/18 11/09/19 Unknown Dexcom G6 Transmitter #1 ea NS 11/30/18 11/09/19 Unknown allopurinol 300 mg tablet 300 mg PO HS #90 tab 03/16/19 11/22/19 10/09/19 doxycycline hyclate 50 mg capsule 50 mg PO BID #180 cap 03/16/19 11/22/19 10/09/19 prednisone 5 mg tablet 5 mg PO HS #90 tab 03/16/19 11/22/19 10/09/19 sertraline 50 mg tablet 50 mg PO HS #90 tab 03/16/19 11/22/19 10/09/19 clopidogrel [Plavix] 75 mg PO QAM 03/29/19 11/22/19 10/10/19 atorvastatin 80 mg tablet 80 mg PO HS #90 tab 06/23/19 11/22/19 10/09/19 pantoprazole 40 mg tablet,delayed 40 mg PO HS #90 tab 06/23/19 11/22/19 10/09/19 release sirolimus 2 mg tablet 4 mg PO HS #180 tab 06/23/19 11/22/19 10/09/19 insulin syringe-needle U-100 0.5 #100 ea 09/09/19 11/09/19 Unknown mL 31 gauge x 5/16" metoprolol succinate 75 mg PO HS 10/10/19 11/22/19 10/09/19 levofloxacin [Levaquin] 750 mg PO Q48H #3 tab 10/11/19 11/22/19 Unknown benzonatate 100 mg capsule 100 mg PO TID PRN #30 cap 10/18/19 11/22/19 Unknown insulin aspart U-100 100 unit/mL See Rx Instructions .ROUTE 10/26/19 11/22/19 Unknown subcutaneous solution .COMPLEX #3 vial lidocaine 5 % topical patch 1 patch TOPICAL DAILY #1 ea 11/03/19 11/22/19 Unknown furosemide 40 mg tablet 80 mg PO Q OTHER DAY #60 tab 11/09/19 11/22/19 Unknown darbepoetin sarah in polysorbat 200 200 mcg SUBCUT .Q2W ml 11/11/19 11/22/19 Unknown mcg/0.4 mL in polysorbate injection syringe pregabalin [Lyrica] 150 mg PO HS 11/22/19 11/22/19 Unknown Past Medical History Medical History Anxiety CAD (coronary artery disease) Chronic renal insufficiency Deep vein thrombosis ARM (10 YEARS AGO) AT [facility] Depression Diabetes mellitus type 1 INSULIN PUMP Fistula LEFT ARM (NON FUNCTIONING) GERD (gastroesophageal reflux disease) Gout History of recent hospitalization 1.5 mo ago - [facility] - Pneumonia; resolved Hyperlipidemia Hypertension Mitral regurgitation MILD-MOD Myocardial Infarction 2016 Peripheral neuropathy Sensory problems with limbs Sleep apnea CPAP Exercise / Class Metabolic Activity III < 4 Walking/Shop/Light housework Past Family History Family History Grandfather Family history of diabetes mellitus Other No family history of adverse response to anesthesia Past Surgical History Surgical History H/O eye surgery LEFT/RT LASER SURGERY History of below knee amputation LEFT REVISION (5 TOTAL) History of cardiac cath 2016 - [place] - [facility] - 2 STENTS - FOLLOWS W/ DR. JURADO History of heart artery stent 2016 (2 STENTS PLACED) AT [facility] History of right hip replacement 03/17/2019 [facility] Kidney transplant recipient 2001 Past Anesthesia History No Hx of Anesthesia Complications and No Family Hx of Anesthesia Complications History of PONV No Hx of PONV and No Hx of Motion Sickness Social History Smoking Status: Never smoker tobacco type: smokeless tobacco Do You Dip or Chew Tobacco: Yes Hx Alcohol Use: Yes Alcohol type: beer alcohol intake frequency: a few times a week Hx Substance Use: No substance use type: does not use Testing Electrocardiogram Date: 10/10/19 Findings: + NSR @ (100;LAE;low voltage QRS;T wave Jonathon; lat. ishem.) Echocardiogram Date: 10/11/19 EF: 50% LV Function: dysfunctional RWMA: + hypokinetic (Distal anterlateral wall) Other Findings: + LVH (Mild) Valvular Disease: + (Mild) and + MR (Moderate) mild pulmonary HTN; mild TR
--- NOTE | 2019-11-25 08:59 | Communication Note ---
Date of Service: November 25, 2019 patient has been optimized to the extent possible and has been risk stratified to proceed w/ surgery.
--- NOTE | 2019-11-27 18:05 | History and Physical Report ---
DATE OF ADMISSION: 12/01/2019 CHIEF COMPLAINT: Left hip pain and discomfort. HISTORY OF PRESENT ILLNESS: The patient is a 44-year-old male with a host of medical problems including coronary artery disease, status post stenting, insulin-dependent diabetes, status post renal transplant with renal insufficiency and bilateral hip AVN, who presents now for surgical treatment of his left hip. He is now 9 months out from a right total hip replacement done for AVN and has done well from this. He did have some congestive heart failure afterwards due to some volume overload. He has bounced back from that and recovered nicely. He continues to be limited by left hip, groin, and thigh pain. He says it just progressed since his surgery. He describes this as very similar to the other side. He has very limited walking ability due to his pain. He does have an MRI, which shows avascular necrosis in the past. He would now like to proceed with surgical treatment. PAST MEDICAL HISTORY: Significant for: 1. Coronary artery disease, status post cardiac stent placement 4 years ago and on Plavix and aspirin. 2. Insulin-dependent diabetes x40 plus years. 3. Hypertension. 4. Status post kidney transplant with residual insufficiency. 5. Sleep apnea, on CPAP machine. 6. Gastroesophageal reflux disease. PAST SURGICAL HISTORY: Includes: 1. Cardiac stent placement in 2017. 2. Kidney transplant in 2001. 3. Left below-knee amputation done at [facility]. 4. Right total hip replacement done on 03/17/2019. ALLERGIES: None. CURRENT MEDICINES: Include: 1. Allopurinol. 2. Aspirin. 3. Atorvastatin. 4. Insulin. 5. Plavix. 6. Doxycycline. 7. Furosemide. 8. Hydromorphone. 9. Metoprolol. 10. Omeprazole. 11. Prednisone. 12. Quinapril. 13. Lyrica. 14. Sertraline. 15. Sirolimus. 16. Tacrolimus. SOCIAL HISTORY: A 44-year-old male. He is . Works at [employer]. 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 FAMILY HISTORY: Significant for heart disease and diabetes. REVIEW OF SYSTEMS: As above. Denies any current chest pain or shortness of breath. No history of DVT or PE. He is on Plavix. He did recently see Dr. Hadley and cleared for surgery. PHYSICAL EXAMINATION: GENERAL: Shows a pleasant, middle-aged male. He certainly looks better than his medical history dictates. HEENT: Benign. NECK: Supple, no lymphadenopathy. LUNGS: Clear to auscultation. HEART: Regular rate and rhythm. ABDOMEN: Soft, nontender, nondistended. EXTREMITIES: Grossly neurovascularly intact except as follows: Examination of the left lower extremity reveals the patient walks with a prosthesis. He does have a left below-knee amputation. Leg lengths are not applicable due to his BKA. He does have fairly good hip motion with some pain. I can internally rotate to about 15 degrees, but it does cause pain. Negative straight leg raise. He is neurologically stable. Examination of the right hip reveals well-healed incision. No swelling. Maybe just a trace bit of distal edema. No pain with hip motion. X-RAYS: X-rays of both hips were reviewed. X-rays of the right hip reveal total hip replacement that looks to be in good position and looks well ingrown. X-rays of the left hip reveal diffuse osteopenia. No obvious signs of collapse. MRI: I did review an MRI of his spine, which involves his hip, which shows avascular necrosis of the weightbearing dome of the femoral head. ASSESSMENT: 1. A 44-year-old male with multiple medical problems including coronary artery disease status post stent placement. 2. Insulin-dependent diabetes x30 plus years. 3. Status post renal transplant with residual insufficiency, hypertension, sleep apnea, gastroesophageal reflux disease, now 9 months out from a total hip replacement done for avascular necrosis, with left hip pain and avascular necrosis. It does not really look like he has got collapse on his plain films, but in this gentleman I really think the most predictable operation for him is a total hip replacement. PLAN: We talked about treatment. He is adamant about proceeding with total hip replacement. The risks and benefits of left total hip replacement were explained to the patient including but not limited to DVT, PE, , infection, neurological injury, vascular injury, bleeding problem, pain, limited range of motion, stiffness, failure to relieve his symptoms, incomplete relief of symptoms, need for further surgery in the future, fracture, leg length inequality, nerve palsy, dislocation, and persistent pain. The patient understands and desires to proceed. Informed consent was obtained. He has got multiple medical comorbidities and is at high risk. He understands this. We will have to be very careful with fluid management as he got fluid overloaded and readmitted to the hospital for heart failure last time. He will stop his Plavix a week before. He has seen Dr. Hadley and cleared for surgery. We will hold all NSAIDs. We will use Plavix for DVT prophylaxis. He will take his beta raine in the morning of surgery. Last time he was discharged to a rehab and at this time, I believe, he wants to go home with some home health.
[~2019-12-01 08:55] MED LIST changes: -DC INTRASPINAL MORPHINE ONE; -LR 15ML/HR IV SCH; +LR 60ML/HR IV SCH; -METOCLOPRAMIDE HCL 10 MG TABLET PO SCH; -MIDAZOLAM HCL 1 MG/ML 2ML VIAL ONE; +MISSING PHYSICIAN SIGNATURE ON ORDER SCH; -SCOPOLAMINE 1.5 MG TDSY TD SCH; +Scopolamine CHECK PATCH PLACEMENT SCH; -[UNRECOGNIZED DRUG - REMARK] SCH
--- NOTE | 2019-12-01 09:07 | History & Physical Bridge Note ---
Date of Service December 01, 2019 History & Physical Bridge Note I have examined the patient, reviewed the History & Physical and in the interval since the performance of the History & Physical I have noted the following changes of clinical significance: no changes noted
[2019-12-01] MEDS ORDERED: LIDOCAINE HCL 2% 2 ML VIAL/AMP(20MG/ML) INFIL ONE (09:35)
[2019-12-01] MEDS ORDERED: PROPOFOL IV EMULSION 10 MG/ML 20 ML VIAL IV ONE (09:35)
[2019-12-01] MEDS ORDERED: PHENYLEPHRINE 100MCG/ML 5ML SYR ONE ×2 (09:35→12:34)
[2019-12-01] MEDS ORDERED: fentaNYL citrate 100 MCG/2 ML VIAL ONE (09:35)
[2019-12-01] MEDS ORDERED: ePHEDrine sulfate 50 MG/ML SYR ONE ×2 (09:35→12:34)
[2019-12-01] MEDS ORDERED: MIDAZOLAM HCL 1 MG/ML 2ML VIAL ONE (09:36)
[2019-12-01 09:44] LABS: Basophils # (auto) 0.01 K/uL (0-0.2); Basophils % (auto) 0.1 %; Eosinophils # (auto) 0.11 K/uL (0-0.5); Eosinophils % (auto) 1.3 %; Hematocrit (blood only) 35.6 % (42-52); Hemoglobin 10.5 g/dL (14.0-18.0); Immature Granulocytes # (auto) 0.06 K/uL (0.00-0.02); Immature Granulocytes % (auto) 0.7 %; Lymphocytes # (auto) 1.81 K/uL (1.2-3.4); Lymphocytes % (auto) 21.8 %; Mean Corpuscular Hemoglobin 25.9 pg (25-34); Mean Corpuscular Volume 87.9 fL (80-100); Mean Platelet Volume 12.6 fL (7.4-10.4); Monocytes # (auto) 0.95 K/uL (0.11-0.59); Monocytes % (auto) 11.4 %; Neutrophils # (auto) 5.36 K/uL (1.4-6.5); Neutrophils % (auto) 64.7 %; Nucleated RBC # (auto) 0.36 K/uL (0-0); Nucleated RBC % (auto) 4.3 %; Platelet Count 295 K/uL (130-400); RDW Coefficient of Variation 21.4 % (11.5-14.5); RDW Standard Deviation 63.5 fL (36.4-46.3); Red Blood Count 4.05 M/uL (4.7-6.1)
[2019-12-01 09:45] LABS: Mean Corpuscular Hgb Conc 29.5 g/dL (32-36)
[2019-12-01] MEDS ORDERED: ACETAMINOPHEN 500 MG TAB ONE (09:52)
[2019-12-01] MEDS ORDERED: METOCLOPRAMIDE HCL 10 MG TABLET ONE (09:53)
[2019-12-01] MEDS ORDERED: SCOPOLAMINE 1.5 MG TDSY TD ONE (09:53)
[2019-12-01] MEDS ORDERED: FAMOTIDINE 20 MG TAB ONE (09:53)
[2019-12-01] MEDS ORDERED: TRANEXAMIC ACID / 0.7% NACL 1000MG/100ML BAG IV ONE (09:54)
[2019-12-01] MEDS ORDERED: CEFAZOLIN 2,000 MG/15 ML IV PUSH IV ONE (09:55)
[2019-12-01 09:56] LABS: BUN Creatinine Ratio 25.6 (10-20); Calcium 8.7 mg/dl (8.5-10.1); Creatinine Clr Calc Pharmacy 25.2 ml/min; Est GFR (African American) 22.4; Est GFR (Non-African American) 19.4; Potassium 5.1 mmol/L (3.5-5.1)
[2019-12-01 10:10] LABS: Acanthocytes 1+; Anisocytosis Present; Echinocytes 1+; Polychromasia 1+
[2019-12-01] MEDS ORDERED: ATROPINE SULFATE 0.1 MG/ML 10ML SYR IV PRN (10:34)
[2019-12-01] MEDS ORDERED: HYDROmorphone INJ 1 MG/ML SYRINGE IV PRN (10:34)
[2019-12-01] MEDS ORDERED: ONDANSETRON INJ 2 MG/ML 2 ML VIAL IV PRN ×2 (10:34→15:51)
[2019-12-01] MEDS ORDERED: ePHEDrine sulfate 50 MG/ML AMP IV PRN (10:34)
[2019-12-01] MEDS ORDERED: fentaNYL citrate 100 MCG/2 ML VIAL IV PRN (10:34)
[2019-12-01] MEDS ORDERED: EPINEPHrine INJ 1 MG/ML AMP ONE (11:18)
[2019-12-01] MEDS ORDERED: BUPIVACAINE 0.5 % 5 MG/1 ML MPF 30ML VIAL ONE (11:18)
[2019-12-01] MEDS ORDERED: BACITRACIN INJ 50,000 UNIT VIAL ONE (11:18)
[2019-12-01] MEDS ORDERED: ROCURONIUM BROMIDE 10 MG/ML 5 ML VIAL IV ONE (12:34)
[2019-12-01] MEDS ORDERED: NEOSTIGMINE METHYLSULFATE 5 MG/5 ML SYR ONE (12:34)
[2019-12-01] MEDS ORDERED: GLYCOPYRROLATE 0.2 MG/ML VIAL ONE (12:34)
[2019-12-01] MEDS ORDERED: LARYING-O-JET KIT (LTA) ONE (12:34)
[2019-12-01] MEDS ORDERED: ONDANSETRON INJ 2 MG/ML 2 ML VIAL ONE (12:34)
[2019-12-01] MEDS ORDERED: HYDROmorphone INJ 2 MG/ML SYR/VIAL ONE (12:36)
[2019-12-01] MEDS ORDERED: LABETALOL HCL IV 5 MG/ML 20ML IV ONE (12:41)
--- NOTE | 2019-12-01 13:43 | Post Operative Brief Note ---
PG Immediate Post Op with CF Date of Surgery December 01, 2019 Pre & Post Diagnosis Operation Date: 12/01/19 11:00 Pre-Op Diagnosis: Left Hip Avascular Necrosis Post-Op Diagnosis: Left Hip Avascular Necrosis I identified the patient and participated in the time-out.: Yes Procedure Operation Date: 12/01/19 11:00 Actual Procedures p Left Total Hip Arthroplasty(Left) - Bill Lima MD Surgeon Bill Lima MD Furniture Maker Елена, PAC Estimated Blood Loss 200 Findings Consistent with Post-Op Diagnosis Fluids 600 cc Specimens Specimen Description: Permanent Solution: A.) Left Femoral Head Anesthesia Type General Complications none Disposition Accompanied Patient To Recovery: No Disposition: Recovery Room
--- NOTE | 2019-12-01 14:01 | Operative Report ---
Post Operative Report Pre & Post Diagnosis Operation Date: 12/01/19 11:00 Pre-Op Diagnosis: Left Hip avascular necrosis degenerative Post-Op Diagnosis: Left Hip avascular necrosis I identified the patient and participated in the time-out.: Yes Procedure Operation Date: 12/01/19 11:00 Actual Procedures p Left Total Hip Arthroplasty(Left) - Bill Lima MD Surgeon Bill Lima MD Inhalation Therapy Teacher Елена, PAC Estimated Blood Loss 200 Findings Consistent with Post-Op Diagnosis Operative findings revealed a diffuse osteopenia. Fairly poor bone quality. To have a small hip joint effusion. There is no clear collapse of visible grossly of his femoral head. Fluids 600 cc. Specimens Left femoral head sent for pathology. Drains None. Anesthesia Type Spinal MAC Complications none Disposition Accompanied Patient To Recovery: No Disposition: Recovery Room Indications Patient is a 44-year-old gentleman with multiple medical comorbidities including underlying heart disease, diabetes, severe right renal disease after previous renal transplant who has a known history of a vast necrosis of his hips. He is right hip replaced about 9 months ago and is done well from this. He limited limited by left hip replacement. We talked about treatment options and he elected proceed with total hip arthroplasty. Description of Procedure Operative implants consist of: 1. Biomet G7 size 48 mm acetabular shell. 2. Aydlett eliminator. 3. 6.5 cancellus acetabular screws 1 of 35 mm length 125 mm length. 4. Highly cross-linked polyethylene liner with a 48 mm outer diameter and 32 mm inner diameter. 5. Depuy Corail size 9 KLA femoral stem. 6. +1/32 mm ceramic articular ball. Patient was taken to the operating identified and placed on the operating table supine position. All contact areas were appropriately padded. IV antibiotics were tried by the anesthesia team. A general anesthetic was implemented by anesthesia team as the patient had only stopped his Plavix about 3 days ago. The patient was then placed in the right lateral decubitus position. An axillary roll was placed. Stulberg hip positioner was used for positioning. Left hip and leg were then prepped and draped in usual sterile fashion. A posterior lateral approach to the left hip was then performed through a curvilinear incision centered over the greater trochanter. Sharp dissection got through subcutaneous tissue down to level the IT band gluteal fascia the IT band gluteal fascia then incised longitudinally in line with skin incision. The underlying greater truck bursa was excised. The piriformis and external rotators and posterior hip joint capsule were then released from the posterior aspect hip joint as a single layer. Great care was taken the operative procedure protect the sciatic nerve at all times. Hip was internally rotated. We struggled a little bit with dislocation as he had scope so much anteversion in his femoral neck. After dislocation the femoral neck osteotomy cut was made with Final Cut about 5 mm above the lesser trochanter. Femoral head was removed and sent for pathology. The femur was retracted anteriorly. Attention drawn the acetabulum. The acetabular labrum was excised. Pulmonary fat was excised. Sequential reaming the acetabulum then performed begin with size 43 and progressing up to 47. I did reamed a little bit with a 48 reamer and then placed a 48 mm G7 acetabular shell in about 40 degrees lateral opening and 20 degrees of anteversion. It was fixed with two 6.5 cancellus acetabular screws. Some small anterior osteophytes removed. Trial liner was placed. Attention drawn to the femur. The proximal femur was entered with a cookie-cutter followed by canal finder. I broached beginning with size 8 and then progressing to a 9. I was able to impact his bone to get good stability. I did not think we could put much bigger implant so we stopped at the 9. Calcar reamer was used smooth and off the calcar. We then trialed the hip. These cuts and lengths were identical to the opposite side as leg lengths are difficult to advertisement distributor due to his a BK amputation. Hip was relocated. With a +1 articular ball the hip was fully stable. The soft tissue tension was just a little bit lax with these were the same measurements and cuts and implants as on the other side and we elected to place this. His hip was extremely stable in all positions. Elect to place these implants. All trial implants were removed. An apex eliminator was placed but highly cross-linked polyethylene liner was placed. A Caitlyn KLA size 9 femoral stem was impacted in position. +1/32 mm ceramic articular ball was placed. Hip was located once again found to be stable. Attention drawn toward closing. The wound was irrigated cups ounce pulsatile lavage solution. I did inject locally with 60 cc of half percent Marcaine with epinephrine. Posterior capsule and external rotators were then repaired through drill to the posterior trochanter with #2 Tycron suture. The IT band gluteal fascia then closed in 1 PDS suture running fashion the subcutaneous tissue then closed 2 layers with a deep layer #1 Vicryl suture and subcutaneous tissues with 2-0 Dexon suture in a buried interrupted fashion the skin was closed skin ernst. Leg was then cleaned dried a sterile dressed composed Xeroform, 4 x 4's, ABD pad, foam tape were applied. Patient was then brought out of general anesthesia and transferred to the recovery room in stable condition. Patient tolerated the procedure well and there were no complications. I attest to the content of the Intraoperative Record and any orders documented therein. Any exceptions are noted below.
--- NOTE | 2019-12-01 14:19 | XRay Report ---
SINGLE VIEW PELVIS; SINGLE VIEW LEFT HIP CLINICAL HISTORY: Postoperative examination. FINDINGS: An AP portable view of the hips and pelvis with a crosstable lateral portable view of the l eft hip are obtained. A bipolar left hip arthroplasty is in near-anatomic alignment. At least 2 michelle ical lag screws transfix the acetabular cup. No acute fracture is identified. There are expected post operative changes overlying the left hip including skin clips, subcutaneous gas, and soft tissue swel ling. A right hip arthroplasty is in place. Surgical clips are noted along the spermatic cord bilater ally. Atherosclerotic calcification is noted in the femoral arteries. IMPRESSION: Expected postoperative findings status post left hip arthroplasty. No acute fracture is s een. ACT 112: Negative or not required by law. Electronically signed by: Rob Kaur M.D. 12/01/2019 2:17 PM
--- NOTE | 2019-12-01 15:15 | Anesthesiology Progress Note ---
Date of Service December 01, 2019 Anesthesia Post Procedure Vital Signs Vital Signs: Temp Pulse Pulse Resp BP Pulse Ox 12/01/19 15:05 92 H 16 139/90 100 12/01/19 14:45 94 H 18 151/99 H 100 12/01/19 14:35 36.3 C L 94 H 16 165/97 H 100 12/01/19 14:25 93 H 15 148/95 H 100 12/01/19 14:15 93 H 16 159/98 H 100 12/01/19 14:05 91 H 16 143/98 H 100 12/01/19 13:55 88 16 148/95 H 100 12/01/19 13:47 36.1 C L 88 14 115/76 100 12/01/19 10:15 77 18 153/101 H 100 12/01/19 09:39 36.9 C 84 22 148/92 H 100 Transfer of Care Handoff Completed per policy Notes Mental Status: alert / awake / arousable and participated in evaluation Patient Amnestic to Procedure: Yes Nausea / Vomiting: adequately controlled Pain: adequately controlled Airway Patency, RR, SpO2: stable & adequate BP & HR: stable & adequate Hydration State: stable & adequate Anesthetic Complications: no major complications apparent and Pt Satisfied with anesthetic care
[2019-12-01] MEDS ORDERED: GLUCOSE 40% GEL 15 GM TUBE PO PRN (15:51)
[2019-12-01] MEDS ORDERED: CARBOHYDRATES FOR HYPOGLYCEMIA PO PRN (15:51)
[2019-12-01] MEDS ORDERED: TAMSULOSIN HCL 0.4 MG CAP PO PRN (15:51)
[2019-12-01] MEDS ORDERED: bisacodyL 10 MG SUPP PR PRN (15:51)
[2019-12-01] MEDS ORDERED: ALUMINUM/MAGNESIUM SUSP 30 ML UDC PO PRN (15:51)
[2019-12-01] MEDS ORDERED: NALOXONE HCL 0.4 MG/1 ML VIAL/CARP IV PRN (15:51)
[2019-12-01] MEDS ORDERED: NO NSAIDS SCH (15:51)
[2019-12-01] MEDS ORDERED: GLUCOSE 10 TABS/TUBE PO PRN (15:51)
[2019-12-01] MEDS ORDERED: MAGNESIUM HYDROXIDE SUSP 30 ML UDC PO PRN (15:51)
[2019-12-01] MEDS ORDERED: DEXTROSE 50% 50 ML SYRINGE IV PRN (15:51)
[2019-12-01] MEDS ORDERED: METOCLOPRAMIDE HCL INJ 5 MG/ML 2 ML VIAL IV PRN (15:51)
[2019-12-01] MEDS ORDERED: GLUCAGON FOR INJ 1 MG VIAL SQ PRN (15:51)
[2019-12-01] MEDS ORDERED: PHARMACY GLYCEMIC MGMT CONSULT PRN (16:07)
[2019-12-01] MEDS ORDERED: INSULIN ASPART 100 UNITS/ML VIAL SC PRN (16:15)
--- NOTE | 2019-12-01 16:24 | Consultation ---
Date of Consultation December 01, 2019 Assessment & Plan (1) Avascular necrosis of bone of left hip: 2nd to chronic prednisone use for renal transplant status. This has led to chronic pain and subsequent need for left total hip replacement today as performed by Dr Bill Lima. (2) Status post left hip replacement: by Dr Bill Lima. DVT proph - asa with plavix. Defer pain management to orthopedics. Recheck cbc, bmp am. PT, OT. (3) Uncontrolled type 1 diabetes mellitus with diabetic neuropathy, with long- term current use of insulin: Pharmacy glycemic management consult placed by orthopedic team. Patient has CGM and insulin pump in place. I alerted pharmacy to patient's post-op status and his sleepiness which may impede his ability to manipulate his pump this evening. Otherwise patient to continue his pump per previous parameters. (4) Candidiasis of mouth and esophagus: Nystatin solution 5cc q6h swish/spit. (5) Anemia: Managed by his director of cardiopulmonary services and PCP, Dr Samson. Recheck cbc in am. On darbepoetin SC every 2 weeks. (6) CAD in [place] artery: Follows with Dr Jurado, [facility]. Cont asa, plavix, statin, beta raine. No ischemic symptoms post-op. (7) Chronic steroid use: (8) Kidney transplant recipient: on chronic prednisone, 5mg/day, and sirolimus 4mg HS. baseline CrCL of his renal transplant is 20s did not receive stress dose steroids. BMP in am. low threshold to consult his primary director of cardiopulmonary services. (9) Chronic kidney disease, stage IV (severe): baseline Cr is about 3.4 to 3.5. this is in the setting of renal transplant status. follows with Dr Samson, [facility]. bmp in am. avoid nephrtoxic agents. 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 cont asa, plavix, statin. (14) DIANE (obstructive sleep apnea): to bring home CPAP unit while hospitalized (15) DVT prophylaxis: asa wtih plavix will need PT/OT History of Present Illness Requesting Physician: Dr Bill Lima Reason for Consultation: post-operative medical management Attending Physician: Bill Lima MD History of Present Illness 44yo male - well known to me from a hospital admission in 03/2019 - with CKD stage 4 s/p renal transplant at [facility] in 2001 on chronic prednisone and sirolimus, T1DM on insulin pump, left BKA status, and CAD who presented today for left total hip replacement. Patient was having ongoing chronic pain of the left hip due to AVN. Patient underwent left THR by Dr Lima today without apparent complication. I saw the patient on the orthopedic floor about 1-2 hours after transfer from PACU. His , Reina, was at bedside. She reports that in the weeks leading up to this admission he had been feeling well. Recently started on arenesp injections for anemia and this has helped him feel much better. Patient was severely snoring during the visit. He woke to his name being called and was able to tell me he had no chest pain, dyspnea, nausea, emesis or abdominal pain. He would fall asleep while talking, however. reports compliance with CPAP and she will bring unit to the hospital this evening. No recent fevers, chills, illnesses, dysuria, dyspnea, etc. 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 He has a left-sided prosthetic leg. Allergies Allergy/AdvReac Type Severity Reaction Status Date / Time PORK INSULIN Allergy Unknown Hives Uncoded 12/01/19 09:34 Home Medications Home Medications Medication Instructions Recorded Confirmed Type glucagon (human recombinant) 1 mg 1 mg IM .COMPLEX PRN 10/05/18 12/01/19 History solution for injection lancets 33 gauge #100 ea 10/05/18 11/25/19 History aspirin 81 mg PO HS 11/23/18 12/01/19 History Dexcom G6 Film Sorter #1 ea NS 11/30/18 11/25/19 Rx allopurinol 300 mg tablet 300 mg PO HS #90 tab 03/16/19 12/01/19 Rx doxycycline hyclate 50 mg capsule 50 mg PO BID #180 cap 03/16/19 12/01/19 Rx prednisone 5 mg tablet 5 mg PO HS #90 tab 03/16/19 12/01/19 Rx sertraline 50 mg tablet 50 mg PO HS #90 tab 03/16/19 12/01/19 Rx clopidogrel [Plavix] 75 mg PO QAM 03/29/19 12/01/19 History atorvastatin 80 mg tablet 80 mg PO HS #90 tab 06/23/19 12/01/19 Rx pantoprazole 40 mg tablet,delayed 40 mg PO HS #90 tab 06/23/19 12/01/19 Rx release sirolimus 2 mg tablet 4 mg PO HS #180 tab 06/23/19 11/25/19 Rx insulin syringe-needle U-100 0.5 #100 ea 09/09/19 11/25/19 Rx mL 31 gauge x 5/16" metoprolol succinate 75 mg PO HS 10/10/19 12/01/19 History insulin aspart U-100 100 unit/mL See Rx Instructions .ROUTE 10/26/19 12/01/19 Rx subcutaneous solution .COMPLEX #3 vial furosemide 40 mg tablet 80 mg PO Q OTHER DAY #60 tab 11/09/19 12/01/19 Rx darbepoetin sarah in polysorbat 200 200 mcg SUBCUT .Q2W ml 11/11/19 12/01/19 History mcg/0.4 mL in polysorbate injection syringe pregabalin [Lyrica] 150 mg PO HS 11/22/19 12/01/19 History Dexcom G6 Transmitter #1 ea NS 11/25/19 11/25/19 Rx tramadol 50 mg tablet 50 mg PO Q6H PRN #60 tab 11/25/19 12/01/19 Rx Dexcom G6 Sensor #9 ea NS 12/01/19 Rx Patient History Medical History Anxiety CAD (coronary artery disease) Chronic renal insufficiency Deep vein thrombosis ARM (10 YEARS AGO) AT [facility] Depression Diabetes mellitus type 1 INSULIN PUMP Fistula LEFT ARM (NON FUNCTIONING) GERD (gastroesophageal reflux disease) Gout History of recent hospitalization 1.5 mo ago - [facility] - Pneumonia; resolved Hyperlipidemia Hypertension Mitral regurgitation MILD-MOD Myocardial Infarction 2016 Peripheral neuropathy Sensory problems with limbs Sleep apnea CPAP Surgical History H/O eye surgery LEFT/RT LASER SURGERY History of below knee amputation LEFT REVISION (5 TOTAL) History of cardiac cath 2016 - [place] - [facility] - 2 STENTS - FOLLOWS W/ DR. JURADO History of heart artery stent 2016 (2 STENTS PLACED) AT [facility] History of right hip replacement 03/17/2019 [facility] Kidney transplant recipient 2001 Family History Grandfather Family history of diabetes mellitus Other No family history of adverse response to anesthesia Social History (Updated 12/01/19 @ 17:10 by Kobe Espitia) Smoking Status: Never smoker Second Hand Exposure: No; Do You Dip or Chew Tobacco: Yes; Tobacco Cessation Education Requested by Patient: No Hx Alcohol Use: Yes Alcohol type: beer Alcohol Intake Frequency: 2-3 x/Week Hx Substance Use: No Preferred Language: Palestinian Communication Ability: Effective Optometrist Required: No Beliefs That Will Affect Care: None marital status: Current Living Situation: Spouse current occupational status: employed 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 - [employer] How many Children do You have: 2 How many Children do You have Comment: 1 is Feels Safe at Home: Yes Safety Concerns: Feels Safe At This Time Assistive Devices: CPAP, Prosthesis and Walker Review of Systems Review of Systems: Other (unable to obtain ROS due to post-op effects from recent anesthesia except for what is listed in HPI) Physical Exam Constitutional: no acute distress very sleepy, awakens to name being called; when asleep he has severe snoring with apnea Eyes: right pupil 2mm, left pupil pinpoint; both reactive ENMT: Mouth: + oral mucosal abnormality (?thrush on tongue) and + dry oral mucous membranes Neck: trachea midline, no thyromegaly Respiratory: normal respiratory effort, lungs clear to auscultation Cardiovascular: Rate/Rhythm: regular rate and regular rhythm Heart Sounds: normal S1, normal S2 and + murmur (2/6 holosystolic LLSB with radiation to axillae) Vessels: posterior tibial pulses present (right, 2+) and dorsalis pedis pulses present (right 2+ ); no JVD Extremities: + edema (1+ right ankle/foot) Gastrointestinal (Abdomen): normal bowel sounds, soft, nontender, no hepatosplenomegaly kidney transplant palpable RLQ; scars abdominal wall Musculoskeletal: left BKA; dressings intact left lateral hip Skin: + pallor Neurologic: deep tendon reflexes 2+ bilaterally (arms) and moves all extremities Psychiatric: sleepy but awakens to commands Lymphatic: no cervical lymphadenopathy Results & Data ([facility]) Vital Signs (Past 12 Hours) Vital Signs Temp Pulse Pulse Resp BP Pulse Ox 12/01/19 16:10 36.4 C L 90 19 150/88 H 100 12/01/19 15:30 36.4 C L 95 H 16 162/84 H 100 12/01/19 15:05 92 H 16 139/90 100 12/01/19 14:45 94 H 18 151/99 H 12/01/19 14:35 36.3 C L 94 H 16 165/97 H 12/01/19 14:25 93 H 15 148/95 H 12/01/19 14:15 93 H 16 159/98 H 12/01/19 14:05 91 H 16 143/98 H 12/01/19 13:55 88 16 148/95 H 12/01/19 13:47 36.1 C L 88 14 115/76 12/01/19 10:15 77 18 153/101 H 12/01/19 09:39 36.9 C 84 22 148/92 H 100 Laboratory Results Laboratory Results - last 24 hr 12/01/19 12/01/19 12/01/19 09:21 09:22 09:22 WBC 8.30 RBC 4.05 L Hgb 10.5 L Hct 35.6 L MCV 87.9 MCH 25.9 MCHC 29.5 L RDW Std Deviation 63.5 H RDW Coeff of Michelle 21.4 H Plt Count 295 MPV 12.6 H Immature Gran % (Auto) 0.7 Neut % (Auto) 64.7 Lymph % (Auto) 21.8 Duval % (Auto) 11.4 Eos % (Auto) 1.3 Baso % (Auto) 0.1 Neut # (Auto) 5.36 Lymph # (Auto) 1.81 Duval # (Auto) 0.95 H Eos # (Auto) 0.11 Baso # (Auto) 0.01 Immature Gran # (Auto) 0.06 H Absolute Nucleated RBC 0.36 H Nucleated RBC % (auto) 4.3 Polychromasia 1+ Anisocytosis Present Echinocytes 1+ Acanthocytes (Spur) 1+ Sodium Potassium Chloride Carbon Dioxide Anion Gap BUN Creatinine Est Cr Clr Drug Dosing Est GFR ( Amer) Est GFR (Non-Af Amer) BUN/Creatinine Ratio Glucose POC Glucose 106 H Calcium Blood Type O Negative Antibody Screen NEGATIVE 12/01/19 12/01/19 12/01/19 09:22 12:57 13:24 WBC RBC Hgb Hct MCV MCH MCHC RDW Std Deviation RDW Coeff of Michelle Plt Count MPV Immature Gran % (Auto) Neut % (Auto) Lymph % (Auto) Duval % (Auto) Eos % (Auto) Baso % (Auto) Neut # (Auto) Lymph # (Auto) Duval # (Auto) Eos # (Auto) Baso # (Auto) Immature Gran # (Auto) Absolute Nucleated RBC Nucleated RBC % (auto) Polychromasia Anisocytosis Echinocytes Acanthocytes (Spur) Sodium 142 Potassium 5.1 Chloride 113 H Carbon Dioxide 21 Anion Gap 8.0 BUN 92 H Creatinine 3.60 H Est Cr Clr Drug Dosing 25.2 Est GFR ( Amer) 22.4 Est GFR (Non-Af Amer) 19.4 BUN/Creatinine Ratio 25.6 H Glucose 103 H POC Glucose 101 H 132 H Calcium 8.7 Blood Type Antibody Screen 12/01/19 12/01/19 13:56 16:47 WBC RBC Hgb Hct MCV MCH MCHC RDW Std Deviation RDW Coeff of Michelle Plt Count MPV Immature Gran % (Auto) Neut % (Auto) Lymph % (Auto) Duval % (Auto) Eos % (Auto) Baso % (Auto) Neut # (Auto) Lymph # (Auto) Duval # (Auto) Eos # (Auto) Baso # (Auto) Immature Gran # (Auto) Absolute Nucleated RBC Nucleated RBC % (auto) Polychromasia Anisocytosis Echinocytes Acanthocytes (Spur) Sodium Potassium Chloride Carbon Dioxide Anion Gap BUN Creatinine Est Cr Clr Drug Dosing Est GFR ( Amer) Est GFR (Non-Af Amer) BUN/Creatinine Ratio Glucose POC Glucose 141 H 167 H Calcium Blood Type Antibody Screen PG Care Time/CCT Total # of Minutes Spent Total Time Spent with Patient: Total time spent is greater than 50% in coordination of care (as documented) at patient's floor/unit and/or counseling patient: Coding Level of Care Code 32344 Inpt Consult Level 4 Diagnoses Avascular necrosis of bone of left hip M87.052 Status post left hip replacement Z96.642 Uncontrolled type 1 diabetes mellitus with diabetic neuropathy, with long-term current use of insulin E10.40; E10.65 Candidiasis of mouth and esophagus B37.81; B37.0 Anemia D64.89 Anemia type: other cause Other causes of anemia: other cause, not classified CAD in [place] artery I25.10 Chronic steroid use Kidney transplant recipient Z94.0 Chronic kidney disease, stage IV (severe) N18.4 Dyslipidemia E78.5 HTN (hypertension) I10 Mitral regurgitation I34.0 Hx of BKA Z89.512 Laterality: left DIANE (obstructive sleep apnea) G47.33 DVT prophylaxis Z29.9 (1) Anemia Anemia type: other cause Other causes of anemia: other cause, not classified Qualified Code(s): D64.89 - Other specified anemias (2) Hx of BKA Laterality: left Qualified Code(s): Z89.512 - Acquired absence of left leg below knee
--- NOTE | 2019-12-01 16:31 | Progress Notes ---
DATE: 12/01/2019 SUBJECTIVE: 44-year-old gentleman with multiple medical comorbidities postop from a left total hip arthroplasty. He is doing well. Really not having much pain yet. Pretty sedated still. OBJECTIVE: VITAL SIGNS: Temperature 36.4. Vital signs stable. GENERAL: Shows a pleasant, middle-aged male. He is lying in bed, looks comfortable. I had to wake him. LUNGS: Clear to auscultation. HEART: Regular rate and rhythm. ABDOMEN: Soft, nontender, nondistended. EXTREMITIES: Grossly neurovascularly intact except as follows: Examination of the left lower extremity reveals the leg to be well aligned. Dressing is clean, dry and intact. Thigh is soft and supple. He has a below-knee amputation so limits his neurovascular exam. X-RAYS: X-rays of the left hip from recovery room reviewed. It shows left uncemented total hip arthroplasty. Components looked to be in good position. No signs of problems. ASSESSMENT: 44-year-old gentleman, postop from a left hip replacement, doing well. His pain is controlled. His hip is located. He is neurologically intact. PLAN: 1. DVT prophylaxis including thigh-high TEDs, SCDs, and we will put him back on his Plavix starting 24 hours postop. He is also on a baby aspirin. 2. PT/OT. He can weightbear as tolerated. Left total hip protocol. 3. Pain control, doing okay with current pain regimen. We may need to adjust his pain meds as time goes on as he has a pretty significant use of some narcotic use in the past. 4. Antibiotics x24 hours. 5. Disposition. He is hoping to be discharged to home with some home health once adequately recovered and stable.
--- NOTE | 2019-12-01 16:50 | Pharmacy Report ---
Pharmacy Glycemic Short Note 2 - Date of Service December 01, 2019 - Glycemic Short BSG Results (Last 24 hours): 12/01/19 12/01/19 12/01/19 09:21 09:22 12:57 Glucose 103 H POC Glucose 106 H 101 H 12/01/19 12/01/19 13:24 13:56 Glucose POC Glucose 132 H 141 H OUTPATIENT ANTIDIABETIC REGIMEN: * Novolog insulin pump * Basal rate: 8525-5398 0.55 units/hr 3975-5732 0.65 units/hr * Goal range: 150-200 mg/dL * Correction factor: 50 mg/dL/unit * Carb ratio: 1 unit per 30gm CHO * HbA1c: 8.4% (09/09/19) ASSESSMENT: * Mr Dalton is a Type 1 diabetic male, admitted for L total hip this morning w/ Dr Lima. * Pt is managed with an insulin pump at home, which he will continue during admission, as long as BSGs remain stable. * Please refer to Policy Number [email or web address] "Insulin Pump Policy" for inpatient insulin pump procedures. * Pt is ordered daily prednisone, which he takes chronically. * PMH is significant for hx of renal transplant, L BKA, hx of fluid overload post-operatively * Diabetic diet ordered post-op. PLAN FOR INPATIENT GLYCEMIC CONTROL: * Continue insulin pump, per home use. * Pt may manage own insulin pump, according to the Insulin Pump Policy.
[2019-12-01] MEDS: CEFAZOLIN 1000MG 1,000 MG/7.5 ML SYR IV SCH (18:14)
[2019-12-01] MEDS: ASCORBIC ACID 500 MG TAB PO SCH (18:15)
[2019-12-01] MEDS: FERROUS GLUCONATE 324 MG TAB PO SCH (18:15)
[2019-12-01] MEDS: NovoLOG INSULIN PUMP SCH ×2 (18:15→21:40)
[2019-12-01] MEDS: SODIUM CHLORIDE 0.9% 1000ML 1,000 ML IV SCH (18:17)
[2019-12-01] MEDS: HYDROmorphone INJ 0.5 MG/0.5 ML SYR IV PRN (18:26)
[2019-12-01] MEDS ORDERED: TRANEXAMIC ACID / 0.7% NACL 1,000 MG/100 ML BAG IV SCH (18:30)
[2019-12-01] MEDS: DOCUSATE SODIUM 100 MG CAP PO SCH (19:53)
[2019-12-01] MEDS: SENNA 8.6 MG TAB PO SCH (19:53)
[2019-12-01] MEDS: predniSONE 5 MG TAB PO SCH (19:54)
[2019-12-01] MEDS: SIROLIMUS 0.5 MG TABLET PO SCH (19:54)
[2019-12-01] MEDS: ATORVASTATIN 40 MG TAB PO SCH (19:55)
[2019-12-01] MEDS: ASPIRIN 81 MG ECTAB PO SCH (19:55)
[2019-12-01] MEDS: NYSTATIN SUSP 500,000 U/5 ML UDC PO SCH (19:55)
[2019-12-01] MEDS: PANTOprazole 40 MG TAB PO SCH (19:56)
[2019-12-01] MEDS: SERTRALINE HCL 50 MG TABLET PO SCH (19:56)
[2019-12-01] MEDS: METOPROLOL SUCC 25MG EXT REL TAB PO SCH (19:57)
[2019-12-01] MEDS: allopurinoL 300 MG TAB PO SCH (19:57)
[2019-12-01] MEDS: ACETAMINOPHEN 500 MG TAB PO SCH (20:00)
[2019-12-01] MEDS: PREGABALIN 75 MG CAP PO SCH (20:23)
[2019-12-01] MEDS: TAPENTADOL HCL ER 50 MG TABCR PO SCH (20:23)
[2019-12-01] MEDS ORDERED: PREGABALIN 150 MG CAP PO SCH ×2 (21:00)
[2019-12-02] MEDS: HYDROmorphone HCL 2 MG TAB PO PRN ×3 (00:06→19:36)
[2019-12-02] MEDS: CEFAZOLIN 1000MG 1,000 MG/7.5 ML SYR IV SCH (01:48)
[2019-12-02] MEDS: HYDROmorphone INJ 0.5 MG/0.5 ML SYR IV PRN ×2 (02:06→08:56)
[2019-12-02] MEDS: SODIUM CHLORIDE 0.9% 1000ML 1,000 ML IV SCH (04:23)
[2019-12-02 05:56] LABS: Basophils # (auto) 0.01 K/uL (0-0.2); Basophils % (auto) 0.1 %; Eosinophils # (auto) 0.02 K/uL (0-0.5); Eosinophils % (auto) 0.1 %; Hematocrit (blood only) 34.2 % (42-52); Immature Granulocytes # (auto) 0.05 K/uL (0.00-0.02); Immature Granulocytes % (auto) 0.3 %; Lymphocytes # (auto) 0.78 K/uL (1.2-3.4); Lymphocytes % (auto) 5.4 %; Mean Corpuscular Hemoglobin 26.5 pg (25-34); Mean Corpuscular Hgb Conc 29.2 g/dL (32-36); Mean Corpuscular Volume 90.5 fL (80-100); Mean Platelet Volume 11.9 fL (7.4-10.4); Monocytes # (auto) 1.09 K/uL (0.11-0.59); Monocytes % (auto) 7.5 %; Neutrophils # (auto) 12.55 K/uL (1.4-6.5); Neutrophils % (auto) 86.6 %; Nucleated RBC # (auto) 0.88 K/uL (0-0); Nucleated RBC % (auto) 6.1 %; Platelet Count 264 K/uL (130-400); RDW Coefficient of Variation 21.7 % (11.5-14.5); RDW Standard Deviation 65.3 fL (36.4-46.3); Red Blood Count 3.78 M/uL (4.7-6.1)
[2019-12-02] MEDS: ACETAMINOPHEN 500 MG TAB PO SCH ×3 (06:08→21:56)
[2019-12-02 06:17] LABS: Anisocytosis Present; Echinocytes 1+; Poikilocytosis Present; Polychromasia 1+
[2019-12-02 06:43] LABS: BUN Creatinine Ratio 21.7 (10-20); Calcium 8.5 mg/dl (8.5-10.1); Creatinine Clr Calc Pharmacy 21.6 ml/min; Est GFR (African American) 18.7; Est GFR (Non-African American) 16.1; Potassium 6.1 mmol/L (3.5-5.1)
[2019-12-02] MEDS ORDERED: SODIUM CHLORIDE 0.9% 1000ML 500 ML IV ONE (06:55)
[2019-12-02] MEDS: NovoLOG INSULIN PUMP SCH ×4 (07:59→21:57)
--- NOTE | 2019-12-02 08:39 | Progress Notes ---
DATE: 12/02/2019 SUBJECTIVE: A 44-year-old gentleman postop day 1 from a left hip replacement. He is doing okay. Pain seems to be controlled this morning. No chest pain or shortness of breath. Not feeling dizzy or lightheaded. OBJECTIVE: VITAL SIGNS: Temperature 37.3. Vital signs stable. GENERAL: Physical examination shows a pleasant, middle-aged male. He is lying in bed, looks pretty comfortable this morning. He is much more awake, alert, and oriented than last evening. EXTREMITIES: Examination of the left hip and leg reveals the dressing to be clean, dry, and intact. Leg is well aligned. Not much in the way of swelling. He is neurologically stable. LABORATORY DATA: Hemoglobin 10.0. Hematocrit 34.2. White cell count elevated at 14.5. Electrolytes are stable. Creatinine is increased. Potassium is also increased. ASSESSMENT: A 44-year-old gentleman with multiple medical comorbidities postop day 1 from a left hip replacement. Orthopedically, he is doing okay. Creatinine is a bit elevated and looks to be maybe a little bit volume depleted. Potassium is also little high. PLAN: 1. DVT prophylaxis including thigh-high TEDs, SCDs, and he is back on a baby aspirin once a day and we will start him back on his Plavix today. 2. PT/OT. He can weightbear as tolerated, left lower extremity as per the total hip protocol. 3. Pain control, seems to be doing okay with current pain regimen. 4. Multiple medical issues. Medicine has been consulted and we will have them help manage his creatinine and his potassium and fluid management. He does have a history of heart failure after surgery in the past. 5. Disposition: He is hoping to be discharged to home with some home health once adequately recovered and medically stable.
[2019-12-02] MEDS ORDERED: SODIUM POLYSTYRENE SULFONATE 15G/60ML SUSP PO STA ×2 (08:41→14:40)
[2019-12-02] MEDS ORDERED: FUROSEMIDE 80 MG TAB PO SCH (09:00)
[2019-12-02] MEDS: NYSTATIN SUSP 500,000 U/5 ML UDC PO SCH ×4 (09:03→21:32)
[2019-12-02] MEDS: PREGABALIN 150 MG CAP PO SCH (09:04)
[2019-12-02] MEDS: TAPENTADOL HCL ER 50 MG TABCR PO SCH ×2 (09:04→21:56)
[2019-12-02] MEDS: DOCUSATE SODIUM 100 MG CAP PO SCH ×2 (09:04→21:30)
[2019-12-02] MEDS: FERROUS GLUCONATE 324 MG TAB PO SCH ×2 (09:05→17:03)
[2019-12-02] MEDS: MULTIVITAMIN TAB PO SCH (09:05)
[2019-12-02] MEDS: ASCORBIC ACID 500 MG TAB PO SCH ×2 (09:07→17:03)
[2019-12-02] MEDS ORDERED: SODIUM CHLORIDE 0.9% 1000ML 1,000 ML IV SCH (11:15)
--- NOTE | 2019-12-02 12:52 | Hospitalist Progress Note ---
Date of Service December 02, 2019 Assessment & Plan (1) Acute kidney injury: Patient appears mildly volume depleted this am. Likely cause of CHERI. HOLD lasix. Place on NS hydration for 1 liter. Repeat BMP this afternoon to ensure Cr is plateauing and K is improved. BMP also in am tomorrow. Primary credit collections specialist made aware of CHERI. (2) Hyperkalemia: 2nd to CHERI. kayexalate 30gm x 1 now. repeat BMP this afternoon. transfer patient to telemetry from the ortho floor. I spoke with Dr Lima and he is ok with such. (3) Avascular necrosis of bone of left hip: 2nd to chronic prednisone use for renal transplant status. POD #1 s/p left THR by Dr Bill Lima. (4) Status post left hip replacement: POD #1. by Dr Bill Lima. DVT proph - asa with plavix. Defer pain management to orthopedics but would use nucynta cautiously given his renal impairment. May cause encephalopathy. H/H stable today. PT, OT. (5) Uncontrolled type 1 diabetes mellitus with diabetic neuropathy, with long- term current use of insulin: Pharmacy glycemic management consult placed by orthopedic team. Patient has CGM and insulin pump in place. Cont pump; glycemic control very good. (6) Candidiasis of mouth and esophagus: Improved. Cont nystatin solution 5cc q6h swish/spit. (7) Anemia: Managed by his credit collections specialist and PCP, Dr Samson. H/H very acceptable today; minimal drop in Hb from pre-op. On darbepoetin SC every 2 weeks. (8) CAD in [place] artery: Follows with Dr Hadley, [facility]. h/o STEMI 2nd to diagonal blockage in 2016 s/p MAR. EKG was ordered by Dr Lima this am -- no ST changes, anterior q's unchanged. Cont asa, plavix, statin, beta raine. No ischemic symptoms this am. (9) Chronic steroid use: Prednisone 5mg/day for renal transplant. If low BP persists consider stress dose steroids. (10) Kidney transplant recipient: on chronic prednisone, 5mg/day, and sirolimus 4mg HS. baseline CrCL of his renal transplant is 20s baseline Cr about 3.4. did not receive stress dose steroids yesterday. now with CHERI. BMP in am. discussed care with primary credit collections specialist, Dr Samson. (11) Chronic kidney disease, stage IV (severe): baseline Cr is about 3.4 to 3.5. this is in the setting of renal transplant status. follows with Dr Samson, [facility]. bmp in am. avoid nephrtoxic agents. CHERI present - see above. 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 cont asa, plavix, statin. (16) DIANE (obstructive sleep apnea): cont CPAP hs/naps (17) DVT prophylaxis: asa wtih plavix appreciate PT/OT again will move patient to telemetry due to hyperkalemia Admission and Anticipated Discharge Date Admission Date: December 01, 2019 Subjective patient states he "feels great" with minimal left hip pain. no dyspnea. no orthopnea. did wear CPAP all night for DIANE. BSGs wnl. ate breakfast this am. took kayexalate - no BM yet, but passing flatus. does have some nasal congestion and "feels like he is getting a cold." minimal cough. no h/o asthma or inhaler use. Review of Systems Constitutional: no fever, no chills, no fatigue and no anorexia Respiratory: + cough; no sputum production and no wheezing Cardiovascular: + edema (right leg - chronic ); no chest pain Gastrointestinal: no abdominal pain, no nausea and no vomiting Physical Exam Constitutional: no acute distress, + not appropriately hydrated (appears dry ) and no altered mental status (oriented x 3, but acting slightly altered) ENMT: Mouth: + dry oral mucous membranes Respiratory: normal respiratory effort, lungs clear to auscultation no respiratory distress Cardiovascular: Rate/Rhythm: regular rhythm and + tachycardic Heart Sounds: normal S1, normal S2 and + murmur (2/6 systolic, LSB ) Vessels: posterior tibial pulses present (right foot ) and dorsalis pedis pulses present (right foot); no JVD Extremities: + edema (1+ right ankle) Gastrointestinal (Abdomen): normal bowel sounds, soft, nontender, no hepatosplenomegaly palpable renal transplant right lower quadrant, nontender Musculoskeletal: left BKA Psychiatric: Orientation: alert and oriented x 3 Results & Data Results & Data ([facility]) Vital Signs (Past 12 Hours) Vital Signs Temp Pulse Pulse Resp BP BP Pulse Ox 12/02/19 10:30 37.2 C 101 H 18 93/75 L 95 12/02/19 07:35 37.2 C 103 H 18 120/75 97 12/02/19 02:49 37.3 C 100 H 18 99/55 L 94 12/02/19 01:55 37.4 C 102 H 20 97/63 L 95 Laboratory Results Laboratory Results - last 24 hr 12/01/19 12/01/19 12/01/19 12:57 13:24 13:56 WBC RBC Hgb Hct MCV MCH MCHC RDW Std Deviation RDW Coeff of Michelle Plt Count MPV Immature Gran % (Auto) Neut % (Auto) Lymph % (Auto) [place] % (Auto) Eos % (Auto) Baso % (Auto) Neut # (Auto) Lymph # (Auto) [place] # (Auto) Eos # (Auto) Baso # (Auto) Immature Gran # (Auto) Absolute Nucleated RBC Nucleated RBC % (auto) Polychromasia Poikilocytosis Anisocytosis Echinocytes Sodium Potassium Chloride Carbon Dioxide Anion Gap BUN Creatinine Est Cr Clr Drug Dosing Est GFR ( Amer) Est GFR (Non-Af Amer) BUN/Creatinine Ratio Glucose POC Glucose 101 H 132 H 141 H Calcium 12/01/19 12/01/19 12/02/19 16:47 21:22 05:39 WBC 14.50 H RBC 3.78 L Hgb 10.0 L Hct 34.2 L MCV 90.5 MCH 26.5 MCHC 29.2 L RDW Std Deviation 65.3 H RDW Coeff of Michelle 21.7 H Plt Count 264 MPV 11.9 H Immature Gran % (Auto) 0.3 Neut % (Auto) 86.6 Lymph % (Auto) 5.4 [place] % (Auto) 7.5 Eos % (Auto) 0.1 Baso % (Auto) 0.1 Neut # (Auto) 12.55 H Lymph # (Auto) 0.78 L [place] # (Auto) 1.09 H Eos # (Auto) 0.02 Baso # (Auto) 0.01 Immature Gran # (Auto) 0.05 H Absolute Nucleated RBC 0.88 H Nucleated RBC % (auto) 6.1 Polychromasia 1+ Poikilocytosis Present Anisocytosis Present Echinocytes 1+ Sodium Potassium Chloride Carbon Dioxide Anion Gap BUN Creatinine Est Cr Clr Drug Dosing Est GFR ( Amer) Est GFR (Non-Af Amer) BUN/Creatinine Ratio Glucose POC Glucose 167 H 136 H Calcium 12/02/19 05:39 WBC RBC Hgb Hct MCV MCH MCHC RDW Std Deviation RDW Coeff of Michelle Plt Count MPV Immature Gran % (Auto) Neut % (Auto) Lymph % (Auto) [place] % (Auto) Eos % (Auto) Baso % (Auto) Neut # (Auto) Lymph # (Auto) [place] # (Auto) Eos # (Auto) Baso # (Auto) Immature Gran # (Auto) Absolute Nucleated RBC Nucleated RBC % (auto) Polychromasia Poikilocytosis Anisocytosis Echinocytes Sodium 141 Potassium 6.1 H* D Chloride 114 H Carbon Dioxide 20 L Anion Gap 7.0 BUN 91 H Creatinine 4.19 H D Est Cr Clr Drug Dosing 21.6 Est GFR ( Amer) 18.7 Est GFR (Non-Af Amer) 16.1 BUN/Creatinine Ratio 21.7 H Glucose 83 POC Glucose Calcium 8.5 PG Care Time/CCT Total # of Minutes Spent Total Time Spent with Patient: Total time spent is greater than 50% in coordination of care (as documented) at patient's floor/unit and/or counseling patient: Coding Level of Care Code 89554 Subseq Hosp Care Lvl 3 Diagnoses Acute kidney injury N17.9 Hyperkalemia E87.5 Avascular necrosis of bone of left hip M87.052 Status post left hip replacement Z96.642 Uncontrolled type 1 diabetes mellitus with diabetic neuropathy, with long-term current use of insulin E10.40; E10.65 Candidiasis of mouth and esophagus B37.81; B37.0 Anemia D64.89 Anemia type: other cause Other causes of anemia: other cause, not classified CAD in [place] artery I25.10 Chronic steroid use Kidney transplant recipient Z94.0 Chronic kidney disease, stage IV (severe) N18.4 Dyslipidemia E78.5 HTN (hypertension) I10 Mitral regurgitation I34.0 Hx of BKA Z89.512 Laterality: left DIANE (obstructive sleep apnea) G47.33 DVT prophylaxis Z29.9 (1) Hx of BKA Laterality: left Qualified Code(s): Z89.512 - Acquired absence of left leg below knee (2) Anemia Anemia type: other cause Other causes of anemia: other cause, not classified Qualified Code(s): D64.89 - Other specified anemias
[2019-12-02 14:31] LABS: Calcium 7.9 mg/dl (8.5-10.1); Creatinine Clr Calc Pharmacy 21.8 ml/min; Est GFR (African American) 18.9; Est GFR (Non-African American) 16.3; Potassium 6.1 mmol/L (3.5-5.1)
--- NOTE | 2019-12-02 14:34 | Pharmacy Report ---
Glycemic Control Progress Note - Date of Service December 02, 2019 - Scope Glycemic Pharmacist consulted for glycemic control to write orders per [facility] inpatient glycemic control protocol. - Objective Accuchecks BSG(last 24 hours):: 12/01/19 12/01/19 12/02/19 16:47 21:22 05:39 Glucose 83 POC Glucose 167 H 136 H - Recent Pertinent Medications The patient is currently receiving: * Novolog insulin pump per home settings - Outpatient Anti-Diabetic Meds Novolog insulin pump -basal insulin -: 0.55 units/hr; 10-24: 0.65 units/hr -CF 50 -CR 30 - Assessment & Plan ASSESSMENT: * See progress note from 12/01/2019 for more background info, in short: * Pt receiving SQ basal bolus insulin regimen for hyperglycemia secondary to baseline DM (outpatient regimen on hold). Patient is POD 0 for R total hip. Kidney function has worsening slightly. * Patient's blood sugars have remained stable. Ranged from 101-167 mg/dL yesterd ay. Today BSGs managed by Dexcom. One value this morning for correlation. * Changes needed to insulin regimen: * AM Fasting BSG = 83 mg/dl. This is in goal range for patient based on inpatient targets and co-morbidities. Continue insulin pump * Post-prandial BSGs are in range therefore no changes needed to CF/CR. * Total daily dose = ~27 units. As per at home. PLAN FOR INPATIENT GLYCEMIC CONTROL: * Continuing home insulin pump RECOMMENDATIONS FOR DISCHARGE: * Continue insulin pump as an outpatient - HbA1C reasonable for patient's comorbidities. Thank you.
[2019-12-02] MEDS: CLOPIDOGREL BISULFATE 75 MG TAB PO SCH (15:28)
[2019-12-02] MEDS: SIROLIMUS 0.5 MG TABLET PO SCH (21:30)
[2019-12-02] MEDS: SENNA 8.6 MG TAB PO SCH (21:30)
[2019-12-02] MEDS: METOPROLOL SUCC 25MG EXT REL TAB PO SCH (21:31)
[2019-12-02] MEDS: predniSONE 5 MG TAB PO SCH (21:31)
[2019-12-02] MEDS: ATORVASTATIN 40 MG TAB PO SCH (21:31)
[2019-12-02] MEDS: PANTOprazole 40 MG TAB PO SCH (21:31)
[2019-12-02] MEDS: SERTRALINE HCL 50 MG TABLET PO SCH (21:31)
[2019-12-02] MEDS: ASPIRIN 81 MG ECTAB PO SCH (21:32)
[2019-12-02] MEDS: allopurinoL 300 MG TAB PO SCH (21:32)
[2019-12-02] MEDS: PREGABALIN 75 MG CAP PO SCH (21:56)
--- NOTE | 2019-12-03 05:48 | Electrocardiogram Report ---
Test Reason : Blood Pressure : / mmHG Vent. Rate : 100 BPM Atrial Rate : 100 BPM P-R Int : 180 ms QRS Dur : 080 ms QT Int : 336 ms P-R-T Axes : 062 029 101 degrees QTc Int : 433 ms Normal sinus rhythm Possible Left atrial enlargement Low voltage QRS Anterior infarct T wave abnormality, consider lateral ischemia Abnormal ECG When compared with ECG of 10-OCT-2019 10:27, T wave inversion no longer evident in Anterolateral leads Confirmed by Harrison Jimenez ([id number]) on 12/03/2019 5:48:12 AM Referred By: Bill Lima Confirmed By:Harrison Jimenez
[2019-12-03 06:02] LABS: Hematocrit (blood only) 30.6 % (42-52); Hemoglobin 9.2 g/dL (14.0-18.0); Mean Corpuscular Hemoglobin 27.1 pg (25-34); Mean Corpuscular Hgb Conc 30.1 g/dL (32-36); Mean Platelet Volume 11.9 fL (7.4-10.4); Nucleated RBC # (auto) 0.24 K/uL (0-0); Nucleated RBC % (auto) 1.5 %; Platelet Count 238 K/uL (130-400); RDW Coefficient of Variation 21.9 % (11.5-14.5); RDW Standard Deviation 66.8 fL (36.4-46.3); White Blood Count 15.94 K/uL (4.8-10.8)
[2019-12-03] MEDS: ACETAMINOPHEN 500 MG TAB PO SCH ×3 (06:24→21:57)
[2019-12-03 06:31] LABS: BUN Creatinine Ratio 21.7 (10-20); Calcium 8.3 mg/dl (8.5-10.1); Creatinine Clr Calc Pharmacy 23.9 ml/min; Est GFR (African American) 21.1; Est GFR (Non-African American) 18.2; Potassium 4.8 mmol/L (3.5-5.1)
[2019-12-03] MEDS: NovoLOG INSULIN PUMP SCH ×4 (08:04→22:33)
[2019-12-03] MEDS: FERROUS GLUCONATE 324 MG TAB PO SCH ×2 (08:05→17:06)
[2019-12-03] MEDS: MULTIVITAMIN TAB PO SCH (08:06)
[2019-12-03] MEDS: CLOPIDOGREL BISULFATE 75 MG TAB PO SCH (08:06)
[2019-12-03] MEDS: ASCORBIC ACID 500 MG TAB PO SCH ×2 (08:06→17:06)
[2019-12-03] MEDS: DOCUSATE SODIUM 100 MG CAP PO SCH ×2 (08:06→20:51)
[2019-12-03] MEDS: NYSTATIN SUSP 500,000 U/5 ML UDC PO SCH ×4 (08:06→20:44)
[2019-12-03] MEDS: PREGABALIN 150 MG CAP PO SCH (08:15)
[2019-12-03] MEDS: TAPENTADOL HCL ER 50 MG TABCR PO SCH ×2 (08:15→21:47)
--- NOTE | 2019-12-03 13:04 | XRay Report ---
XR chest 1V portable HISTORY: bibasilar rales; cough; eval for edema COMPARISON: Chest 10/10/2019. FINDINGS: The cardiac silhouette remains mildly enlarged. There is diffuse interstitial and vascular thickening consistent with mild congestive change. This has slightly improved. No pleural effusions. No pneumothorax. Old, healed left fourth rib fracture. IMPRESSION: Mild cardiomegaly with mild congestive change. This has improved compared to the prior study. ACT 112: Negative or not required by law. Electronically signed by: Romario Carpenter M.D. 12/03/2019 1:02 PM
--- NOTE | 2019-12-03 15:33 | Pharmacy Report ---
Pharmacy Glycemic Short Note 2 - Date of Service December 03, 2019 - Glycemic Short BSG Results (Last 24 hours): 12/02/19 12/02/19 12/03/19 16:58 20:51 05:34 Glucose 107 H POC Glucose 111 H 93 OUTPATIENT ANTIDIABETIC REGIMEN: * Novolog insulin pump * Basal rate: 6826-4117 0.55 units/hr 1287-5799 0.65 units/hr * Goal range: 150-200 mg/dL * Correction factor: 50 mg/dL/unit * Carb ratio: 1 unit per 30gm CHO * HbA1c: 8.4% (09/09/19) ASSESSMENT: 12/02 * Patient's BSGs well controlled today. Patient showed me his CGM BSG reading and all have been in goal range, most of which were in low 100s. No episodes of hypoglycemia. * Patient had no concerns and his site is not due to be changed. He also has adequate insulin remaining in the reservoir. PLAN FOR INPATIENT GLYCEMIC CONTROL: * Continue insulin pump, per home use. * Pt may manage own insulin pump, according to the Insulin Pump Policy.
--- NOTE | 2019-12-03 17:26 | Hospitalist Progress Note ---
Date of Service December 03, 2019 Assessment & Plan (1) Acute kidney injury: Resolving nicely. Hyperkalemia resolved. Repeat BMP in am. (2) Hyperkalemia: 2nd to CHERI. Resolved with 2 doses of kayexalate and gentle fluids. (3) Avascular necrosis of bone of left hip: 2nd to chronic prednisone use for renal transplant status. POD #2 s/p left THR by Dr Bill Lima. (4) Status post left hip replacement: POD #2. by Dr Bill Liam. DVT proph - asa with plavix. Defer pain management to orthopedics but would use nucynta cautiously given his renal impairment. May cause encephalopathy. Post-op course complicated by CHERI and hyperkalemia. H/H stable. Progressing nicely. (5) Uncontrolled type 1 diabetes mellitus with diabetic neuropathy, with long- term current use of insulin: Pharmacy glycemic management consult appreciated. Patient has CGM and insulin pump in place. Cont pump. Excellent control at this time. (6) Candidiasis of mouth and esophagus: Improved/resolved. Cont nystatin solution 5cc q6h swish/spit. (7) Anemia: Managed by his ballpoint pen cartridge tester and PCP, Dr Samson. H/H again acceptable. On darbepoetin SC every 2 weeks. (8) CAD in lime artery: Follows with [facility]. h/o STEMI 2nd to diagonal blockage in 2016 s/p MAR. Cont asa, plavix, statin, beta raine. No ischemic symptoms. (9) Chronic steroid use: Cont prednisone 5mg/day for renal transplant status. (10) Kidney transplant recipient: on chronic prednisone, 5mg/day, and sirolimus 4mg HS. baseline CrCL of his renal transplant is 20s baseline Cr about 3.4. now with CHERI but improving. BMP in am. discussed care with primary ballpoint pen cartridge tester, Dr Samson, this week. (11) Chronic kidney disease, stage IV (severe): baseline Cr is about 3.4 to 3.5. this is in the setting of renal transplant status. follows with [facility]. CHERI resolving. Lasix 80mg po x 1 as he may be modestly volume overloaded clinically/radiographically today. bmp in am. depending on AM labs tomorrow will make decision then about resuming typical lasix dosing of 80mg every other day which is home dosing. 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 cont asa, plavix, statin. (16) DIANE (obstructive sleep apnea): cont CPAP hs/naps (17) Cough: rising leukocytosis -- URI? cxr obtained - mild pulmonary edema. cough may be from such. edema is 2nd to CHERI in setting of advanced CKD. lasix 80mg po x 1 now. repeat CBC am. (18) DVT prophylaxis: asa with plavix appreciate PT/OT discussed care briefly with Dr Lima - to remain hospitalized overnight again with hopes for d/c home tomorrow Admission and Anticipated Discharge Date Admission Date: December 01, 2019 Subjective patient resting upon arrival. feels good, denies new complaints. again mentions a dry cough and "that he feels like he has a cold." denies dyspnea. left hip pain controlled. tele overnight wnl. Review of Systems Constitutional: no fever, no fatigue and no anorexia Respiratory: + cough; no sputum production Cardiovascular: no chest pain Gastrointestinal: no abdominal pain, no nausea and no vomiting Physical Exam Constitutional: no acute distress and no altered mental status ENMT: Mouth: + oral mucosal abnormality (thrush improved ) and + dry oral mucous membranes (improved today) Respiratory: no respiratory distress Auscultation: + crackles (bases); no wheezes Cardiovascular: Rate/Rhythm: regular rhythm and + tachycardic Heart Sounds: normal S1, normal S2 and + murmur (2/6 systolic, LSB ) Vessels: posterior tibial pulses present (right foot ) and dorsalis pedis pulses present (right foot); no JVD Extremities: + edema (1-2+ right ankle (modestly worse today)) Gastrointestinal (Abdomen): normal bowel sounds, soft, nontender, no hepatosplenomegaly Skin: left hip dressings in place Psychiatric: Orientation: alert and oriented x 3 Results & Data Results & Data ([facility]) Vital Signs (Past 12 Hours) Vital Signs Temp Pulse Pulse Resp BP BP Pulse Ox 12/03/19 15:53 36.4 C L 96 H 96 H 16 149/96 H 98 12/03/19 10:46 36.6 C 101 H 20 147/86 H 97 12/03/19 07:53 36.9 C 102 H 21 137/87 97 Laboratory Results Laboratory Results - last 24 hr 12/02/19 12/02/19 12/03/19 19:30 20:51 05:34 WBC 15.94 H RBC 3.40 L Hgb 9.2 L Hct 30.6 L MCV 90.0 MCH 27.1 MCHC 30.1 L RDW Std Deviation 66.8 H RDW Coeff of Michelle 21.9 H Plt Count 238 MPV 11.9 H Absolute Nucleated RBC 0.24 H Nucleated RBC % (auto) 1.5 Sodium Potassium 4.9 D Chloride Carbon Dioxide Anion Gap BUN Creatinine Est Cr Clr Drug Dosing Est GFR ( Amer) Est GFR (Non-Af Amer) BUN/Creatinine Ratio Glucose POC Glucose 93 Calcium 12/03/19 05:34 WBC RBC Hgb Hct MCV MCH MCHC RDW Std Deviation RDW Coeff of Michelle Plt Count MPV Absolute Nucleated RBC Nucleated RBC % (auto) Sodium 143 Potassium 4.8 Chloride 114 H Carbon Dioxide 22 Anion Gap 7.0 BUN 82 H Creatinine 3.79 H D Est Cr Clr Drug Dosing 23.9 Est GFR ( Amer) 21.1 Est GFR (Non-Af Amer) 18.2 BUN/Creatinine Ratio 21.7 H Glucose 107 H POC Glucose Calcium 8.3 L PG Care Time/CCT Total # of Minutes Spent Total Time Spent with Patient: Total time spent is greater than 50% in coordination of care (as documented) at patient's floor/unit and/or counseling patient: Coding Level of Care Code 15289 Subseq Hosp Care Lvl 2 Diagnoses Acute kidney injury N17.9 Hyperkalemia E87.5 Avascular necrosis of bone of left hip M87.052 Status post left hip replacement Z96.642 Uncontrolled type 1 diabetes mellitus with diabetic neuropathy, with long-term current use of insulin E10.40; E10.65 Candidiasis of mouth and esophagus B37.81; B37.0 Anemia D64.89 Anemia type: other cause Other causes of anemia: other cause, not classified CAD in lime artery I25.10 Chronic steroid use Kidney transplant recipient Z94.0 Chronic kidney disease, stage IV (severe) N18.4 Dyslipidemia E78.5 HTN (hypertension) I10 Mitral regurgitation I34.0 Hx of BKA Z89.512 Laterality: left DIANE (obstructive sleep apnea) G47.33 Cough R05 DVT prophylaxis Z29.9 (1) Hx of BKA Laterality: left Qualified Code(s): Z89.512 - Acquired absence of left leg below knee (2) Anemia Anemia type: other cause Other causes of anemia: other cause, not classified Qualified Code(s): D64.89 - Other specified anemias
[2019-12-03] MEDS ORDERED: FUROSEMIDE 80 MG TAB PO ONE (18:00)
--- NOTE | 2019-12-03 19:31 | Progress Notes ---
DATE: 12/03/2019 SUBJECTIVE: A 44-year-old gentleman postop day 2 from a left total hip arthroplasty. He is doing well. He was moved down to the PCU due to his hyperkalemia. They had given him some Kayexalate and this has resolved. He has been asymptomatic. No chest pain or shortness of breath. His hip pain has been well controlled. OBJECTIVE: VITAL SIGNS: Temperature is 36.4. Vital signs stable. GENERAL: Shows a pleasant, middle-aged male. He is lying in bed, looks comfortable. EXTREMITIES: Examination of left hip reveals the dressing to be clean, dry and intact. Leg is well aligned. Neurovascular exam is limited by his below-knee amputation. LABORATORY DATA: Hemoglobin 9.2. Hematocrit 30.6. Electrolytes are stable with his improved creatinine at 3.79. Potassium is improved at 4.8. ASSESSMENT: A 44-year-old gentleman with multiple medical comorbidities postoperative day 2 from left hip replacement, doing well. Potassium is improved. Creatinine is improved. His pain is controlled. Hip appears located. PLAN: 1. DVT prophylaxis including thigh-high TEDs, SCDs, and aspirin along with Plavix. 2. PT/OT. He can weight bear as tolerated. Left total hip protocol. 3. Pain control, doing well with current pain regimen. 4. Hyperkalemia. This appears to be fixed. Creatinine is also improved. 5. Disposition: We are going to transfer him to the floor. Hopeful discharge in the next day or so depending on how his medical situation comes along.
[2019-12-03] MEDS: ASPIRIN 81 MG ECTAB PO SCH (20:42)
[2019-12-03] MEDS: PREGABALIN 75 MG CAP PO SCH (20:42)
[2019-12-03] MEDS: SIROLIMUS 0.5 MG TABLET PO SCH (20:43)
[2019-12-03] MEDS: predniSONE 5 MG TAB PO SCH (20:44)
[2019-12-03] MEDS: ATORVASTATIN 40 MG TAB PO SCH (20:44)
[2019-12-03] MEDS: SENNA 8.6 MG TAB PO SCH ×2 (20:45→20:51)
[2019-12-03] MEDS: METOPROLOL SUCC 25MG EXT REL TAB PO SCH (20:45)
[2019-12-03] MEDS: PANTOprazole 40 MG TAB PO SCH (20:45)
[2019-12-03] MEDS: allopurinoL 300 MG TAB PO SCH (20:46)
[2019-12-03] MEDS: SERTRALINE HCL 50 MG TABLET PO SCH (20:46)
[2019-12-03] MEDS: guaiFENesin 600 MG TABCR PO SCH (21:43)
[2019-12-04] MEDS: ACETAMINOPHEN 500 MG TAB PO SCH (05:04)
[2019-12-04 06:28] LABS: Basophils # (auto) 0.02 K/uL (0-0.2); Basophils % (auto) 0.1 %; Eosinophils # (auto) 0.09 K/uL (0-0.5); Eosinophils % (auto) 0.6 %; Hematocrit (blood only) 31.2 % (42-52); Hemoglobin 9.6 g/dL (14.0-18.0); Immature Granulocytes # (auto) 0.07 K/uL (0.00-0.02); Immature Granulocytes % (auto) 0.5 %; Lymphocytes # (auto) 1.08 K/uL (1.2-3.4); Lymphocytes % (auto) 7.6 %; Mean Corpuscular Hemoglobin 27.7 pg (25-34); Mean Corpuscular Hgb Conc 30.8 g/dL (32-36); Mean Corpuscular Volume 90.2 fL (80-100); Mean Platelet Volume 11.8 fL (7.4-10.4); Monocytes # (auto) 1.03 K/uL (0.11-0.59); Monocytes % (auto) 7.3 %; Neutrophils # (auto) 11.89 K/uL (1.4-6.5); Neutrophils % (auto) 83.9 %; Nucleated RBC % (auto) 1.4 %; Platelet Count 228 K/uL (130-400); RDW Coefficient of Variation 21.5 % (11.5-14.5); RDW Standard Deviation 67.2 fL (36.4-46.3); Red Blood Count 3.46 M/uL (4.7-6.1); White Blood Count 14.18 K/uL (4.8-10.8)
[2019-12-04 06:56] LABS: Acanthocytes 2+; Anisocytosis Present; Polychromasia 1+
[2019-12-04 07:00] LABS: BUN Creatinine Ratio 21.6 (10-20); Calcium 8.6 mg/dl (8.5-10.1); Creatinine Clr Calc Pharmacy 24.3 ml/min; Est GFR (African American) 21.5; Est GFR (Non-African American) 18.6; Potassium 4.4 mmol/L (3.5-5.1)
[2019-12-04] MEDS: PREGABALIN 150 MG CAP PO SCH (08:42)
[2019-12-04] MEDS: FERROUS GLUCONATE 324 MG TAB PO SCH (08:42)
[2019-12-04] MEDS: TAPENTADOL HCL ER 50 MG TABCR PO SCH (08:42)
[2019-12-04] MEDS: ASCORBIC ACID 500 MG TAB PO SCH (08:42)
[2019-12-04] MEDS: CLOPIDOGREL BISULFATE 75 MG TAB PO SCH (08:42)
[2019-12-04] MEDS: NYSTATIN SUSP 500,000 U/5 ML UDC PO SCH (08:43)
[2019-12-04] MEDS: MULTIVITAMIN TAB PO SCH (08:43)
[2019-12-04] MEDS: guaiFENesin 600 MG TABCR PO SCH (08:43)
[2019-12-04] MEDS: DOCUSATE SODIUM 100 MG CAP PO SCH (08:43)
[2019-12-04] MEDS: NovoLOG INSULIN PUMP SCH (09:13)
--- NOTE | 2019-12-04 09:38 | Progress Notes ---
DATE: 12/04/2019 SUBJECTIVE: A 44-year-old gentleman postoperative day 3 from a left total hip replacement. He is doing pretty well. He initially had some hyperkalemia and deterioration of renal function, but has all returned. He is feeling well. His pain is controlled. No chest pain or shortness of breath. Not feeling dizzy or lightheaded. OBJECTIVE: VITAL SIGNS: Temperature 36.5. Vital signs stable. GENERAL: Shows a pleasant, middle-aged male. He is sitting up in bed, looks quite and looks quite comfortable this morning. EXTREMITIES: Examination of the left hip reveals the leg to be well aligned. Dressing is clean, dry and intact. No significant drainage. Some mild swelling. He is neurologically stable. LABORATORY DATA: Hemoglobin is improved at 9.6. Hematocrit 31.2. White cell count 14.16. Electrolytes revealed a normal potassium. Creatinine is improved at 3.73. ASSESSMENT: A 44-year-old gentleman postop day 3 from a left total hip replacement done for avascular necrosis. He is doing well. He initially had some deterioration of his kidney function, but has return. His pain is controlled. PLAN: 1. DVT prophylaxis including thigh-high TEDs, SCDs, and he is on a baby aspirin as well as Plavix. 2. PT/OT. He can weightbear as tolerated. We will get some therapy today. 3. Pain control, doing well with current pain regimen. 4. Disposition: Plan to discharge to home with some home health likely later today.
--- NOTE | 2019-12-07 06:37 | Discharge Summary ---
Date of Service December 07, 2019 Admission HPI Per Admitting Provider Documented in the H & P Admission Exam (Per Admitting) Constitutional Documented in the H & P Discharge Data Consultations 12/01/19 15:51 Consult Internal Medicine Routine 12/02/19 08:00 Consult Case Management - Discharge Planning Routine Procedures Performed Operation Date: 12/01/19 11:00 Actual Procedures p Left Total Hip Arthroplasty(Left) - Bill Lima MD Hospital Course (1) Status post total hip replacement, left: This patient is a 44 year old male admitted on 12/01/19 and underwent total hip arthroplasty. He tolerated the procedure well and there were no complications. Transferred to the PACU post op and later to the orthopedic floor for further care. He has a h/o diabetes and chronic kidney disease. Post operatively he developed hyperkalemia and elevated creatinine. He was transferred to the PCU for further monitoring. He was followed by the hospitalist service through out his hospital stay. He did receive Kayexalate and his potassium level improved. He was given ancef for antibiotic prophylaxis. He was also given RENAE stockings, SCDs, plavix and aspirin for DVT prophylaxis. Hemoglobin, hematocrit, and vital signs were monitored during his hospital stay and remained stable. Did not require any blood transfusions. There were no complications during his hospital stay. By post op day #3 the patient was tolerating a diabetic diet, pain was reasonably controlled with oral pain medicine, and he was participating in physical therapy. On post op day #3 the patient was discharged home and set up with home health care. He was given printed discharge instructions including prescriptions for extra strength tylenol, aspirin, iron supplement, and hydromorphone. Continue physical therapy, weight bearing as tolerated. Continue total hip precautions. Continue RENAE stockings. Follow up approximately 2 weeks post op or sooner if there are problems or concerns. Coding Level of Care Code None Diagnoses Status post total hip replacement, left Z96.642
[2019-12-08] MEDS ORDERED: DARBEPOETIN ALFA 200 MCG/0.4 ML SYRINGE SQ SCH (09:00)
== END 2019-12-04 11:16 | disposition home health service (06) ==
LOC: 3E 08:55 → ASU 08:55 → 2E 12-02 10:13 → 3N 12-03 18:57
DX: D64.9 Anemia, unspecified; I25.10 Atherosclerotic heart disease of native coronary artery without angina pectoris; N18.4 Chronic kidney disease, stage 4 (severe); M87.052 Idiopathic aseptic necrosis of left femur; I34.0 Nonrheumatic mitral (valve) insufficiency; E78.5 Hyperlipidemia, unspecified; Z89.512 Acquired absence of left leg below knee; E10.9 Type 1 diabetes mellitus without complications; K21.9 Gastro-esophageal reflux disease without esophagitis; Z94.0 Kidney transplant status; Z95.818 Presence of other cardiac implants and grafts; B37.81 Candidal esophagitis; E10.22 Type 1 diabetes mellitus with diabetic chronic kidney disease; Z79.02 Long term (current) use of antithrombotics/antiplatelets; Z20.828 Contact with and (suspected) exposure to other viral communicable diseases; G47.30 Sleep apnea, unspecified; Z96.641 Presence of right artificial hip joint; I12.9 Hypertensive chronic kidney disease with stage 1 through stage 4 chronic kidney disease, or unspecified chronic kidney disease; Z79.899 Other long term (current) drug therapy; E10.51 Type 1 diabetes mellitus with diabetic peripheral angiopathy without gangrene; Z79.82 Long term (current) use of aspirin; Z96.41 Presence of insulin pump (external) (internal); Z79.52 Long term (current) use of systemic steroids

== ENCOUNTER 2020-04-02 17:22 | Inpatient (IN) ==
--- NOTE | 2020-04-02 17:35 | Emergency Department Note ---
Impression & Plan Acute hypoxemic respiratory failure, Acute exacerbation of CHF (congestive heart failure) ED Provider Note NAME: JEIMY GALINDO AGE: 44 SEX: M : 1975 ARRIVES VIA: Walk-In INFORMANT: Patient, ED PROVIDER(S): Evgeny Bryant MD Chief Complaint: Shortness of breath HPI: Patient does present with worsening shortness of breath that began today. Patient states he was asymptomatic yesterday. Patient states he is unsure as to whether or not he has volume overload versus heart attack as he does feel as though there is a pressure on his chest. The patient does complain of exertional dyspnea mild lower extremity swelling. 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 Patient states that sugars been appropriate. The patient has had a nonproductive cough but denies any loss of taste or smell. Patient has fevers or chills. Patient does complain of some mild orthopnea. Patient states he is compliant with his medications has not taken anything today yet as he takes his medications in the evening. ROS: See HPI for pertinent positives and negatives. A total of 10 systems were reviewed and otherwise negative. Past medical history: See below Surgical history: See below Social history: See below Physical Exam: GENERAL: Ill in appearance, wearing glasses and a mask. EYE EXAM: Normal conjunctiva. PERRL, no anisocoria and EOM's grossly intact w/o pain. NECK: Supple, no nuchal rigidity, no adenopathy, non-tender. No signs of meningismus. LUNGS: Diminished breath sounds bilaterally, tachypnea noted. HEART: Tachycardic and regular, no MRG. ABDOMEN: Abdomen soft, non-tender, normo-active bowel sounds, no masses, no rebound or guarding. BACK: No CVA TTP. SKIN: No rashes and no bruising. UPPER EXTREMITIES: Upper extremities are grossly normal. LOWER EXTREMITIES: 1-2+ right lower extremity edema, left BKA noted with prosthesis in place. NEURO EXAM: A&O x3, cranial nerves II-XII grossly intact, normal speech, moves all 4 extremities on command w/o issue. Differential diagnoses: Reactive airway disease, pneumonia, pneumothorax, COPD, CHF, infections, cardiac ischemia, pulmonary embolism, musculoskeletal, gastrointestinal, as well as other pathologies. Course: Patient was seen and evaluated the bedside. Full history physical exam was performed. EKG: Indication: Shortness of breath Motion artifact present, sinus tachycardia, rate of 112, normal intervals, normal axis, Q waves anteriorly, T wave inversion in the high lateral and lateral leads. Patient's T wave versions in the lateral leads are new compared to prior comparison EKG December 02, 2019. The patient's high lateral T wave inversions appear to be old. Q waves also appear to be old. Imaging Studies: Radiology results as stated below per my review in the radiologist's interpretation: XR chest 1V portable CLINICAL HISTORY: Dyspnea COMPARISON STUDY: Chest radiograph December 03, 2019. FINDINGS: Moderate enlargement of the cardiac silhouette is noted. No pneumothorax or pleural effusion is noted. Interstitial thickening indicates pulmonary edema. There are also bilateral airspace opacities, greater within the right lung. IMPRESSION: 1. Interstitial thickening consistent with moderate pulmonary edema. 2. Bilateral airspace opacities, greater within the right lung. Pulmonary edema is favored although a superimposed infectious process could appear similar. Radiographic follow-up is recommended. ACT 112: Negative or not required by law. Electronically signed by: Carl Terry M.D. 04/02/2020 6:42 PM Dictated: 04/02/201839 Transcribed: 04/02/201839 Cardiac monitoring: An order was placed for continuous cardiac monitoring. The monitor shows a rate of 112 with sinus tachycardia rhythm. MDM: Patient did present with concern for shortness of breath with feeling chest pressure. Blood work was obtained. Patient does have significant heart history chronic diastolic CHF hypertension hyperlipidemia DIANE mitral regurgitation CAD status post diagonal drug-eluting stent placed in March 2015. The patient is not tolerating the BiPAP very well and did need it removed. The patient's saturations were still in the low 90s on 2 L. The patient did have improvement in his blood pressure after Lasix and Nitropaste administration of systolic 160s. Patient was trialed with 1/2 mg of Ativan and reattempted with the BiPAP. Bedside ultrasound did show plethoric IVC with B-lines throughout b/l lung heaton. Likely consistent with CHF. Patient BNP greater than 10,000 troponin not detectable. Patient has a white count of 11 with hemoglobin 9.3. Platelet count unremarkable. Calcium slightly low and was ordered for repletion. The patient's kidney dysfunction is chronic. BUN has been about the same in the past with creatinine virtual baseline. I did speak with the on-call hospitalist Dr. Nupur SMALL and the patient was admitted to the [facility] physician group. Additional 40 of Lasix ordered as the patient does take 80 mg every other day. The patient was really retrialed on BiPAP which she was able to tolerate. Critical Care: I have personally spent 45 minutes of critical care time in direct management of this patient. This includes bedside care, interpretation of diagnostic studies, and testing, discussion with consultants, patient, and family members, and other require inpatient management activities. This 45 minutes is in excess of all separately billable procedures. Past Med/Surg History Medical History Anxiety CAD (coronary artery disease) Chronic renal insufficiency Deep vein thrombosis ARM (10 YEARS AGO) AT [facility] Depression Diabetes mellitus type 1 INSULIN PUMP Fistula LEFT ARM (NON FUNCTIONING) GERD (gastroesophageal reflux disease) Gout History of recent hospitalization 1.5 mo ago - [facility] - Pneumonia; resolved Hyperlipidemia Hypertension Mitral regurgitation MILD-MOD Myocardial Infarction 2016 Peripheral neuropathy Sensory problems with limbs Sleep apnea CPAP Surgical History H/O eye surgery LEFT/RT LASER SURGERY History of below knee amputation LEFT REVISION (5 TOTAL) History of cardiac cath 2016 - [place] - [facility] - 2 STENTS - FOLLOWS W/ DR. JURADO History of heart artery stent 2016 (2 STENTS PLACED) AT [facility] History of right hip replacement 03/17/2019 [facility] Kidney transplant recipient 2002 Family History Grandfather Family history of diabetes mellitus Other No family history of adverse response to anesthesia Social History Smoking Status: Never smoker Second Hand Exposure: No; Hx Alcohol Use: Yes Alcohol type: beer Alcohol Intake Frequency: 2-3 x/Week Hx Substance Use: No Preferred Language: Canadian Communication Ability: Effective Teacher Kindergarten Required: No Beliefs That Will Affect Care: None marital status: Current Living Situation: Spouse current occupational status: employed 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 - [employer] How many Children do You have: 2 How many Children do You have Comment: 1 is Feels Safe at Home: Yes Assistive Devices: CPAP, Glasses, Prosthesis and Walker Allergies Allergies Allergy/AdvReac Type Severity Reaction Status Date / Time PORK INSULIN Allergy Unknown Hives Uncoded 04/02/20 17:50 Home Meds Home Medications Medication Instructions Recorded Confirmed glucagon (human recombinant) 1 mg 1 mg IM DIRECTED PRN 10/05/18 04/02/20 solution for injection lancets 33 gauge #100 ea 10/05/18 03/20/20 metoprolol succinate 75 mg PO HS 10/10/19 04/02/20 darbepoetin sarah in polysorbat 200 200 mcg SUBCUT Q14D ml 11/11/19 04/02/20 mcg/0.4 mL in polysorbate injection syringe calcitriol 0.25 mcg PO HS 04/02/20 04/02/20 clopidogrel [Plavix] 75 mg PO HS 04/02/20 04/02/20 insulin aspart U-100 [Novolog 50 unit SUBCUT DAILY 04/02/20 04/02/20 U-100 Insulin aspart] Previous Rx's Medication Instructions Recorded Dexcom G6 Brick Paver #1 ea NS 11/30/18 insulin syringe-needle U-100 0.5 #100 ea 09/09/19 mL 31 gauge x 5/16" Dexcom G6 Transmitter #1 ea NS 11/25/19 Dexcom G6 Sensor #9 ea NS 12/01/19 allopurinol 300 mg tablet 300 mg PO HS #90 tab 03/30/20 aspirin 81 mg tablet,delayed 81 mg PO HS #30 tab 03/30/20 release atorvastatin 80 mg tablet 80 mg PO HS #90 tab 03/30/20 clindamycin phosphate 1 % topical 1 applic TOPICAL BID #60 ml 03/30/20 solution doxycycline hyclate 50 mg capsule 50 mg PO BID #180 cap 03/30/20 furosemide 40 mg tablet 80 mg PO Q OTHER DAY #60 tab 03/30/20 pantoprazole 40 mg tablet,delayed 40 mg PO HS #90 tab 03/30/20 release prednisone 5 mg tablet 5 mg PO HS #90 tab 03/30/20 pregabalin 75 mg capsule 150 mg PO HS #90 cap 03/30/20 sertraline 50 mg tablet 100 mg PO HS #90 tab 03/30/20 sirolimus 2 mg tablet 4 mg PO HS #180 tab 03/30/20 Results & Data (ED) Vital Signs Vital Signs - 24 hr 04/02/20 17:26 04/02/20 17:35 04/02/20 17:38 Temperature 36.0 C L Temperature Source Temporal Artery Scan Pulse Rate 111 H 109 H 109 H Pulse Rate from SpO2 Sensor 110 H 110 H Respiratory Rate 28 H 30 H 32 H Respiratory Effort / Characteristics Grunting Labored Respiratory Pattern Rapid/Shallow Blood Pressure 145/68 H 199/121 H Blood Pressure Mean 93 147 Blood Pressure Position Sitting Pulse Oximetry 88 L 98 98 Oxygen Delivery Method Room Air Oxygen Flow Rate 4 4 Fraction of Inspired Oxygen Sepsis Recent Fever Within 48 Hours No Sepsis New/Unexplained Change in Mental Status No Sepsis Action Taken by Nursing No Action Required 04/02/20 17:42 04/02/20 17:43 04/02/20 17:45 Temperature Temperature Source Pulse Rate 109 H 110 H Pulse Rate from SpO2 Sensor 111 H 112 H Respiratory Rate 32 H 32 H Respiratory Effort / Characteristics Respiratory Pattern Blood Pressure 202/124 H Blood Pressure Mean 150 Blood Pressure Position Pulse Oximetry 99 96 97 Oxygen Delivery Method Nasal Cannula Oxygen Flow Rate 4 4 4 Fraction of Inspired Oxygen Sepsis Recent Fever Within 48 Hours Sepsis New/Unexplained Change in Mental Status Sepsis Action Taken by Nursing 04/02/20 17:58 04/02/20 18:00 04/02/20 18:20 Temperature Temperature Source Pulse Rate 110 H 109 H 118 H Pulse Rate from SpO2 Sensor 107 H 118 H Respiratory Rate 32 H 27 H 45 H Respiratory Effort / Characteristics Spontaneous Labored Respiratory Pattern Blood Pressure 161/106 H Blood Pressure Mean 124 Blood Pressure Position Pulse Oximetry 92 99 92 Oxygen Delivery Method Nasal Cannula Nasal Cannula Oxygen Flow Rate 4 4 Fraction of Inspired Oxygen 35 Sepsis Recent Fever Within 48 Hours Sepsis New/Unexplained Change in Mental Status Sepsis Action Taken by Nursing 04/02/20 18:30 04/02/20 18:31 04/02/20 18:40 Temperature Temperature Source Pulse Rate 116 H 116 H 115 H Pulse Rate from SpO2 Sensor 116 H 116 H 115 H Respiratory Rate 37 H 43 H 25 H Respiratory Effort / Characteristics Respiratory Pattern Blood Pressure 165/96 H 152/90 H Blood Pressure Mean 119 110 Blood Pressure Position Pulse Oximetry 94 95 96 Oxygen Delivery Method Nasal Cannula Nasal Cannula Nasal Cannula Oxygen Flow Rate 4 4 4 Fraction of Inspired Oxygen Sepsis Recent Fever Within 48 Hours Sepsis New/Unexplained Change in Mental Status Sepsis Action Taken by Nursing 04/02/20 18:50 04/02/20 19:03 Temperature Temperature Source Pulse Rate 116 H 115 H Pulse Rate from SpO2 Sensor 116 H Respiratory Rate 40 H 38 H Respiratory Effort / Characteristics Respiratory Pattern Rapid/Shallow Tachypnea Blood Pressure 156/92 H Blood Pressure Mean 113 Blood Pressure Position Pulse Oximetry 96 96 Oxygen Delivery Method Nasal Cannula BiPAP Oxygen Flow Rate 4 Fraction of Inspired Oxygen 30 Sepsis Recent Fever Within 48 Hours Sepsis New/Unexplained Change in Mental Status Sepsis Action Taken by Half-Way Medications Current Medication List: was personally reviewed by me Laboratory Data Attestation: I reviewed the patient's lab results. Result diagrams: 04/02/20 17:35 04/02/20 17:35 Lab Results 04/02/20 04/02/20 04/02/20 Range/Units 17:35 17:35 17:35 WBC 11.08 H (4.8-10.8) K/uL RBC 3.46 L (4.7-6.1) M/uL Hgb 9.3 L (14.0-18.0) g/dL Hct 29.0 L (42-52) % MCV 83.8 (80-100) fL MCH 26.9 (25-34) pg MCHC 32.1 (32-36) g/dL RDW Std Deviation 52.1 H (36.4-46.3) fL RDW Coeff of Michelle 17.1 H (11.5-14.5) % Plt Count 173 (130-400) K/uL MPV 11.8 H (7.4-10.4) fL Immature Gran % (Auto) 0.5 % Neut % (Auto) 62.6 % Lymph % (Auto) 29.3 % [place] % (Auto) 5.1 % Eos % (Auto) 2.3 % Baso % (Auto) 0.2 % Neut # (Auto) 6.93 H (1.4-6.5) K/uL Lymph # (Auto) 3.25 (1.2-3.4) K/uL [place] # (Auto) 0.56 (0.11-0.59) K/uL Eos # (Auto) 0.26 (0-0.5) K/uL Baso # (Auto) 0.02 (0-0.2) K/uL Immature Gran # (Auto) 0.06 H (0.00-0.02) K/uL PT 10.9 (9.0-12.0) Seconds INR 1.0 (0.9-1.1) APTT 26.5 (21.0-31.0) Seconds PTT Ratio 0.9 Sodium 141 (136-145) mmol/L Potassium 4.4 (3.5-5.1) mmol/L Chloride 110 H (98-107) mmol/L Carbon Dioxide 20 L (21-32) mmol/L Anion Gap 12.0 H (3-11) BUN 91 H (7-18) mg/dl Creatinine 3.46 H (0.6-1.4) mg/dl Est Cr Clr Drug Dosing 23.7 ml/min Est GFR ( Amer) 23.6 Est GFR (Non-Af Amer) 20.3 BUN/Creatinine Ratio 26.2 H (10-20) Glucose 204 H (70-99) mg/dl Calcium 8.3 L (8.5-10.1) mg/dl Magnesium 1.9 (1.8-2.4) mg/dl Total Bilirubin 0.3 (0.2-1) mg/dl AST 31 (15-37) U/L ALT 43 (12-78) U/L Alkaline Phosphatase 210 H (45-117) U/L CK-MB (CK-2) 12.1 H (0.5-3.6) ng/ml Troponin I < 0.015 (0-0.045) ng/ml NT-Pro-B Natriuret Pep 49224 H (0-450) pg/ml Total Protein 7.1 (6.4-8.2) gm/dl Albumin 3.3 L (3.4-5.0) gm/dl Globulin 3.8 (2.5-4.0) gm/dl Albumin/Globulin Ratio 0.9 (0.9-2) COVID-19 Eval Order SARS-CoV-2, RNA, NAAT (NEGATIVE) 04/02/20 04/02/20 Range/Units 18:23 18:23 WBC (4.8-10.8) K/uL RBC (4.7-6.1) M/uL Hgb (14.0-18.0) g/dL Hct (42-52) % MCV (80-100) fL MCH (25-34) pg MCHC (32-36) g/dL RDW Std Deviation (36.4-46.3) fL RDW Coeff of Michelle (11.5-14.5) % Plt Count (130-400) K/uL MPV (7.4-10.4) fL Immature Gran % (Auto) % Neut % (Auto) % Lymph % (Auto) % [place] % (Auto) % Eos % (Auto) % Baso % (Auto) % Neut # (Auto) (1.4-6.5) K/uL Lymph # (Auto) (1.2-3.4) K/uL [place] # (Auto) (0.11-0.59) K/uL Eos # (Auto) (0-0.5) K/uL Baso # (Auto) (0-0.2) K/uL Immature Gran # (Auto) (0.00-0.02) K/uL PT (9.0-12.0) Seconds INR (0.9-1.1) APTT (21.0-31.0) Seconds PTT Ratio Sodium (136-145) mmol/L Potassium (3.5-5.1) mmol/L Chloride (98-107) mmol/L Carbon Dioxide (21-32) mmol/L Anion Gap (3-11) BUN (7-18) mg/dl Creatinine (0.6-1.4) mg/dl Est Cr Clr Drug Dosing ml/min Est GFR ( Amer) Est GFR (Non-Af Amer) BUN/Creatinine Ratio (10-20) Glucose (70-99) mg/dl Calcium (8.5-10.1) mg/dl Magnesium (1.8-2.4) mg/dl Total Bilirubin (0.2-1) mg/dl AST (15-37) U/L ALT (12-78) U/L Alkaline Phosphatase (45-117) U/L CK-MB (CK-2) (0.5-3.6) ng/ml Troponin I (0-0.045) ng/ml NT-Pro-B Natriuret Pep (0-450) pg/ml Total Protein (6.4-8.2) gm/dl Albumin (3.4-5.0) gm/dl Globulin (2.5-4.0) gm/dl Albumin/Globulin Ratio (0.9-2) COVID-19 Eval Order Covid19 [facility]Now [facility] SARS-CoV-2, RNA, NAAT NEGATIVE (NEGATIVE) Administered Medications Discontinued Medications Furosemide (Furosemide 40 Mg/4 Ml Vial) 40 mg IV NOW STA Stop: 04/02/20 17:52 Last Admin: 04/02/20 18:15 Dose: 40 mg Documented by: [id number] Furosemide (Furosemide 40 Mg/4 Ml Vial) 40 mg IV NOW STA Stop: 04/02/20 18:51 Last Admin: 04/02/20 18:52 Dose: 40 mg Documented by: [id number] Lorazepam (Ativan) 0.5 mg in 1 mls @ 1 mls/min IV NOW STA Stop: 04/02/20 18:16 Last Admin: 04/02/20 18:21 Dose: 1 mls/min Documented by: [id number] Nitroglycerin (Nitroglycerin 2% Ointment 30gm Tube) Confirm Administered Dose 18 inch .ROUTE .STK-MED ONE Stop: 04/02/20 17:50 Last Admin: 04/02/20 17:56 Dose: 1 inch Documented by: [id number] Nitroglycerin (Nitroglycerin 2% Ointment 30gm Tube) 1 inch EXT NOW ONE Stop: 04/02/20 17:56 Last Admin: 04/02/20 18:15 Dose: Not Given Documented by: [id number] Discharge Plan Visit Data Chief Complaint: Shortness of Breath/Dyspnea Stated Complaint: SOB ED Provider: Evgeny Bryant Discharge Problem: Acute hypoxemic respiratory failure, Acute exacerbation of CHF (congestive heart failure) Forms Stand Alone Forms: My [facility] [employer] Prescriptions Prescriptions: No Action (DME) Dexcom G6 Brick Paver [facility] See Dose Instructions .ROUTE .MEDSUPPLY Qty: 1 RF: 0 (DME) insulin syringe-needle U-100 [BD Insulin Syringe Ultra-Fine] 0.5 mL 31 gauge x 5/16" syringe See Dose Instructions .ROUTE .MEDSUPPLY Qty: 100 RF: 3 (DME) Dexcom G6 Sensor Device See Dose Instructions .ROUTE .MEDSUPPLY Qty: 9 RF: 3 allopurinol 300 mg tablet 300 mg PO HS Qty: 90 RF: 3 aspirin 81 mg tablet,delayed release (DR/EC) 81 mg PO HS Qty: 30 RF: 5 atorvastatin 80 mg tablet 80 mg PO HS Qty: 90 RF: 3 clindamycin phosphate 1 % solution 1 applic topical BID Qty: 60 RF: 5 doxycycline hyclate 50 mg capsule 50 mg PO BID Qty: 180 RF: 3 furosemide [Lasix] 40 mg tablet 80 mg PO Q OTHER DAY Qty: 60 RF: 5 pantoprazole 40 mg tablet,delayed release (DR/EC) 40 mg PO HS Qty: 90 RF: 3 prednisone 5 mg tablet 5 mg PO HS Qty: 90 RF: 3 pregabalin [Lyrica] 75 mg capsule 150 mg PO HS Qty: 90 RF: 5 sertraline 50 mg tablet 100 mg PO HS Qty: 90 RF: 3 sirolimus 2 mg tablet 4 mg PO HS Qty: 180 RF: 3 (DME) The[employer] G6 Transmitter Device See Dose Instructions .ROUTE .MEDSUPPLY Qty: 1 RF: 3 Glucagon Emergency Kit (human) 1 mg recon soln 1 mg IM DIRECTED PRN (Reason: LOW BLOOD SUGAR) RF: 0 (DME) lancets [OneTouch Delica Lancets] 33 gauge misc See Dose Instructions .ROUTE .MEDSUPPLY Qty: 100 RF: 0 Aranesp (in polysorbate) 200 mcg/0.4 mL syringe 200 mcg subcut Q14D RF: 0 metoprolol succinate 25 mg capsule,sprinkle,ER 24hr 75 mg PO HS RF: 0 clopidogrel [Plavix] 75 mg tablet 75 mg PO HS RF: 0 insulin aspart U-100 [Novolog U-100 Insulin aspart] 100 unit/mL solution 50 unit subcut DAILY RF: 0 calcitriol 0.25 mcg capsule 0.25 mcg PO HS RF: 0 Discharge Problem: Acute exacerbation of CHF (congestive heart failure) Qualifiers: Heart failure type: unspecified Qualified Code(s): I50.9 - Heart failure, unspecified
[2020-04-02 17:48] LABS: Basophils # (auto) 0.02 K/uL (0-0.2); Basophils % (auto) 0.2 %; Eosinophils # (auto) 0.26 K/uL (0-0.5); Eosinophils % (auto) 2.3 %; Hemoglobin 9.3 g/dL (14.0-18.0); Immature Granulocytes # (auto) 0.06 K/uL (0.00-0.02); Immature Granulocytes % (auto) 0.5 %; Lymphocytes # (auto) 3.25 K/uL (1.2-3.4); Lymphocytes % (auto) 29.3 %; Mean Corpuscular Hemoglobin 26.9 pg (25-34); Mean Corpuscular Hgb Conc 32.1 g/dL (32-36); Mean Corpuscular Volume 83.8 fL (80-100); Mean Platelet Volume 11.8 fL (7.4-10.4); Monocytes # (auto) 0.56 K/uL (0.11-0.59); Monocytes % (auto) 5.1 %; Neutrophils # (auto) 6.93 K/uL (1.4-6.5); Neutrophils % (auto) 62.6 %; Platelet Count 173 K/uL (130-400); RDW Coefficient of Variation 17.1 % (11.5-14.5); RDW Standard Deviation 52.1 fL (36.4-46.3); Red Blood Count 3.46 M/uL (4.7-6.1); White Blood Count 11.08 K/uL (4.8-10.8)
[2020-04-02] MEDS ORDERED: NITROGLYCERIN 2% OINTMENT 30GM TUBE ONE (17:49)
[2020-04-02] MEDS ORDERED: FUROSEMIDE 40 MG/4 ML VIAL IV STA ×3 (17:51→20:00)
[2020-04-02] MEDS ORDERED: NITROGLYCERIN 2% OINTMENT 30GM TUBE EXT ONE (17:55)
[2020-04-02 17:57] LABS: Partial Thromboplastin Ratio 0.9; Partial Thromboplastin Time 26.5 Seconds (21.0-31.0); Prothrombin Time 10.9 Seconds (9.0-12.0)
[2020-04-02 18:03] LABS: Alanine Aminotransferase 43 U/L (12-78); Albumin Level 3.3 gm/dl (3.4-5.0); Aspartate Aminotransferase 31 U/L (15-37); BUN Creatinine Ratio 26.2 (10-20); Blood Urea Nitrogen 91 mg/dl (7-18); Calcium 8.3 mg/dl (8.5-10.1); Carbon Dioxide 20 mmol/L (21-32); Chloride 110 mmol/L (98-107); Creatinine Clr Calc Pharmacy 23.7 ml/min; Est GFR (African American) 23.6; Est GFR (Non-African American) 20.3; Glucose 204 mg/dl (70-99); Magnesium 1.9 mg/dl (1.8-2.4); Potassium 4.4 mmol/L (3.5-5.1); Sodium 141 mmol/L (136-145)
[2020-04-02 18:09] LABS: Albumin Globulin Ratio 0.9 (0.9-2); Alkaline Phosphatase 210 U/L (45-117); Bilirubin,Total 0.3 mg/dl (0.2-1); Creatine Kinase MB 12.1 ng/ml (0.5-3.6); Globulin 3.8 gm/dl (2.5-4.0); NT Pro B Type Natriuretic Pept 10888 pg/ml (0-450); Total Protein 7.1 gm/dl (6.4-8.2); Troponin I < 0.015 ng/ml (0-0.045)
[2020-04-02] MEDS ORDERED: LORazepam 0.5 MG/1 ML VIAL IV STA (18:15)
--- NOTE | 2020-04-02 18:39 | History & Physical Report ---
Date of Service April 02, 2020 Assessment & Plan (1) Acute hypoxemic respiratory failure: 2nd to pulmonary edema/volume overload in setting of advanced kidney disease and diastolic dysfunction. Big culprit in hypervolemia is the advanced kidney disease. Clinical picture not c/w infectious process. COVID-19 testing negative. See below regarding diuretics. Continue BIPAP. In light of significant distress despite the BiPAP and poor UOP in the face of diuresis the patient will be admitted to the ICU for ongoing management. (2) Chronic kidney disease, stage IV (severe): Baseline Cr is about 3.5 to 4. He is volume overloaded clinically and radiographically. Spoke with on-call nephrology, Dr Goodwin from [facility] nephrology. He advised an additional 40mg of IV lasix (total dose of 120mg since presentation). If no effective diuresis with such then trial of zaroxylyn 2.5mg po x 1. If lasix is not effective could trial bumex. [place] placed for accurate UOP. (3) Acute exacerbation of CHF (congestive heart failure): Acute/chronic diastolic CHF in setting of advanced CKD of his renal transplant. See above re: diuretics. BPs markedly elevated at presentation -- nitropaste 1" given by ER attending with improved BP. Ativan x 1 given for anxiety in midst of wearing BiPAP - this helped with BP. Continue metoprolol 75mg HS - low threshold to titrate. Labetalol IV prn for SBP> 180. (4) Kidney transplant recipient: 2001. Continue prednisone 5mg daily. Continue sirolimus 4mg HS. Baseline Cr about 3.5 to 4. Diuresis may be quite challenging given the amount of his renal dysfunction. See above discussion. Formal consult with [facility] nephrology requested. (5) Diabetes mellitus type 1: On insulin pump. A1C 6.7% in 01/2020. d/c pump. Consult pharmacy for glycemic management. (6) S/P BKA (below knee amputation) unilateral: Left. (7) DIANE (obstructive sleep apnea): Records suggest he should be using CPAP but uncertain if he is compliant. (8) HTN (hypertension): Continue metoprolol. Adjust as needed. (9) Dyslipidemia: Continue statin. (10) CAD in [place] artery: Initial troponin negative. No obvious ACS symptoms (no chest pain, etc). Will obtain serial troponins given his lateral T wave inversions on EKG. Continue asa, statin, plavix, BB. I do not believe he had flash pulmonary edema from ACS - pulm edema was likely building up over 2-3 days. (11) Gastroesophageal reflux: Continue PPI. (12) Gout: Continue allopurinol prophylaxis. no flares. (13) DVT prophylaxis: Heparin 5000 BID. Left message for patient's on her voicemail informing her of ICU admission, plan of care, etc. Critical care time - 70 min - including coordinating care with nephrology, ICU provider, nursing staff, managing resp failure/pulm edema, etc. History of Present Illness Chief Complaint: worsening shortness of breath Primary Care Provider: Kobe Samson MD 44yo male - s/p renal transplant in 2001 on prednisone and sirolimus, T1DM on insulin pump, and CAD who presents with worsening dyspnea at rest, FISHER, and orthopnea. Patient states he noted some mild dyspnea over the last 2-3 days but was able to carry on normal day-to-day activities. 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 He came home to take a nap and it was very uncomfortable due to severe orthopnea. This prompted him coming to the ER. He denies high salt foods or noncompliance with medications. He takes lasix 80mg qod and last dose was on Friday. Denies fevers. Has had good appetite. Some chills this afternoon when he was on the way to the ER. No sore throat, ear pain, runny nose or loss of taste/smell. Denies sick contacts or obvious exposure to COVID-19. He was coughing during the visit but he denied having cough at home. No diarrhea but did have vomiting earlier today. In the ED he was given lasix 40mg IV x 1 without any significant UOP. Additional lasix 40mg IV x 1 was given. BIPAP 12/05 was applied. Several hours following ER presentation he finally made about 300cc of urine but remained with significant respiratory distress. Allergies Allergy/AdvReac Type Severity Reaction Status Date / Time PORK INSULIN Allergy Unknown Hives Uncoded 04/02/20 17:50 Home Medications Medication Instructions Recorded Confirmed Type glucagon (human recombinant) 1 mg 1 mg IM DIRECTED PRN 10/05/18 04/02/20 History solution for injection lancets 33 gauge #100 ea 10/05/18 03/20/20 History Dexcom G6 Police Investigator #1 ea NS 11/30/18 03/20/20 Rx insulin syringe-needle U-100 0.5 #100 ea 09/09/19 03/20/20 Rx mL 31 gauge x 5/16" metoprolol succinate 75 mg PO HS 10/10/19 04/02/20 History darbepoetin sarah in polysorbat 200 200 mcg SUBCUT Q14D ml 11/11/19 04/02/20 History mcg/0.4 mL in polysorbate injection syringe Dexcom G6 Transmitter #1 ea NS 11/25/19 03/20/20 Rx Dexcom G6 Sensor #9 ea NS 12/01/19 03/20/20 Rx allopurinol 300 mg tablet 300 mg PO HS #90 tab 03/30/20 04/02/20 Rx aspirin 81 mg tablet,delayed 81 mg PO HS #30 tab 03/30/20 04/02/20 Rx release atorvastatin 80 mg tablet 80 mg PO HS #90 tab 03/30/20 04/02/20 Rx clindamycin phosphate 1 % topical 1 applic TOPICAL BID #60 ml 03/30/20 04/02/20 Rx solution doxycycline hyclate 50 mg capsule 50 mg PO BID #180 cap 03/30/20 04/02/20 Rx furosemide 40 mg tablet 80 mg PO Q OTHER DAY #60 tab 03/30/20 04/02/20 Rx pantoprazole 40 mg tablet,delayed 40 mg PO HS #90 tab 03/30/20 04/02/20 Rx release prednisone 5 mg tablet 5 mg PO HS #90 tab 03/30/20 04/02/20 Rx pregabalin 75 mg capsule 150 mg PO HS #90 cap 03/30/20 04/02/20 Rx sertraline 50 mg tablet 100 mg PO HS #90 tab 03/30/20 04/02/20 Rx sirolimus 2 mg tablet 4 mg PO HS #180 tab 03/30/20 04/02/20 Rx calcitriol 0.25 mcg PO HS 04/02/20 04/02/20 History clopidogrel [Plavix] 75 mg PO HS 04/02/20 04/02/20 History insulin aspart U-100 [Novolog 50 unit SUBCUT DAILY 04/02/20 04/02/20 History U-100 Insulin aspart] Past Med/Surg History Medical History Anxiety CAD (coronary artery disease) Chronic renal insufficiency Deep vein thrombosis ARM (10 YEARS AGO) AT [facility] Depression Diabetes mellitus type 1 INSULIN PUMP Fistula LEFT ARM (NON FUNCTIONING) GERD (gastroesophageal reflux disease) Gout History of recent hospitalization 1.5 mo ago - [facility] - Pneumonia; resolved Hyperlipidemia Hypertension Mitral regurgitation MILD-MOD Myocardial Infarction 2016 Peripheral neuropathy Sensory problems with limbs Sleep apnea CPAP Surgical History H/O eye surgery LEFT/RT LASER SURGERY History of below knee amputation LEFT REVISION (5 TOTAL) History of cardiac cath 2016 - [facility] - 2 STENTS - FOLLOWS W/ DR. JURADO History of heart artery stent 2016 (2 STENTS PLACED) AT [facility] History of right hip replacement 03/17/2019 [facility] Kidney transplant recipient 2001 Family History Grandfather Family history of diabetes mellitus Other No family history of adverse response to anesthesia Social History Smoking Status: Never smoker Second Hand Exposure: No; Hx Alcohol Use: Yes Alcohol type: beer Alcohol Intake Frequency: 2-3 x/Week Hx Substance Use: No Preferred Language: Vietnamese Communication Ability: Effective Pilot Control Operator Helper Required: No Beliefs That Will Affect Care: None marital status: Current Living Situation: Spouse current occupational status: employed 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 - [employer] How many Children do You have: 2 How many Children do You have Comment: 1 is Other Information That Helps Us Care for You: No Feels Safe at Home: Yes Safety Concerns: Feels Safe At This Time Assistive Devices: CPAP, Glasses and Prosthesis Review of Systems Constitutional: + chills; no fever, no fatigue, no weakness and no anorexia Eyes: no worsening vision Ear, Nose, Mouth, Throat: no nasal congestion and no sore throat Respiratory: + cough, + dyspnea, + dyspnea on exertion and + wheezing; no s putum production Cardiovascular: + orthopnea and + edema (right leg ); no chest pain Additional Comments: minor chest tightness/pressure today Gastrointestinal: no abdominal pain, no diarrhea/loose stools and no blood in stools Genitourinary: no dysuria Musculoskeletal: no joint pain and no myalgia Integumentary: no rash Neurologic: no headache(s) Psychiatric: + depression Endocrine: T1DM on pump -- BSGs <150 today Hematologic / Lymphatic: no easy bleeding Physical Exam Constitutional: + acute distress (respiratory - tachypnea, retractions, accessory muscle use); no altered mental status Eyes: PERRL ENMT: external ear and nose normal, oropharynx normal Neck: trachea midline, no thyromegaly Respiratory: + respiratory distress, + retractions, + uses accessory muscles, + cough, + tachypneic and + audible wheezes Auscultation: + crackles (diffuse, 2/[address] up back ) and + wheezes Cardiovascular: Rate/Rhythm: regular rhythm and + tachycardic Heart Sounds: normal S1, normal S2 and + murmur (1/6 systolic LLSB) Vessels: + JVD (nearly to the jaw), posterior tibial pulses present (right ) and dorsalis pedis pulses present (right ) Extremities: + edema (1+ RLE) Gastrointestinal (Abdomen): normal bowel sounds, soft, nontender, no hepatosplenomegaly RLQ - kidney transplant palpable Musculoskeletal: left BKA Skin: no rashes, warm and dry + pallor Neurologic: moves all extremities; no focal motor deficits Psychiatric: Orientation: alert and oriented x 3 Affect: + anxious affect Lymphatic: no cervical lymphadenopathy Results & Data Results & Data ([facility]) Vital Signs (Past 12 Hours) Vital Signs Temp Pulse Resp BP Pulse Ox 04/02/20 17:58 110 H 32 H 92 04/02/20 17:45 97 04/02/20 17:43 110 H 32 H 96 04/02/20 17:42 109 H 32 H 202/124 H 99 04/02/20 17:38 109 H 32 H 199/121 H 98 04/02/20 17:35 109 H 30 H 98 04/02/20 17:26 36.0 C L 111 H 28 H 145/68 H 88 L Laboratory Results Laboratory Results - last 24 hr 04/02/20 04/02/20 04/02/20 17:35 17:35 17:35 WBC 11.08 H RBC 3.46 L Hgb 9.3 L Hct 29.0 L MCV 83.8 MCH 26.9 MCHC 32.1 RDW Std Deviation 52.1 H RDW Coeff of Michelle 17.1 H Plt Count 173 MPV 11.8 H Immature Gran % (Auto) 0.5 Neut % (Auto) 62.6 Lymph % (Auto) 29.3 [place] % (Auto) 5.1 Eos % (Auto) 2.3 Baso % (Auto) 0.2 Neut # (Auto) 6.93 H Lymph # (Auto) 3.25 [place] # (Auto) 0.56 Eos # (Auto) 0.26 Baso # (Auto) 0.02 Immature Gran # (Auto) 0.06 H PT 10.9 INR 1.0 APTT 26.5 PTT Ratio 0.9 Sodium 141 Potassium 4.4 Chloride 110 H Carbon Dioxide 20 L Anion Gap 12.0 H BUN 91 H Creatinine 3.46 H Est Cr Clr Drug Dosing 23.7 Est GFR ( Amer) 23.6 Est GFR (Non-Af Amer) 20.3 BUN/Creatinine Ratio 26.2 H Glucose 204 H Lactate Calcium 8.3 L Magnesium 1.9 Total Bilirubin 0.3 AST 31 ALT 43 Alkaline Phosphatase 210 H CK-MB (CK-2) 12.1 H Troponin I < 0.015 NT-Pro-B Natriuret Pep 85002 H Total Protein 7.1 Albumin 3.3 L Globulin 3.8 Albumin/Globulin Ratio 0.9 Beta-Hydroxybutyric Acd 1.91 Procalcitonin COVID-19 Eval Order SARS-CoV-2, RNA, NAAT 04/02/20 04/02/20 04/02/20 18:23 18:23 20:05 WBC RBC Hgb Hct MCV MCH MCHC RDW Std Deviation RDW Coeff of Michelle Plt Count MPV Immature Gran % (Auto) Neut % (Auto) Lymph % (Auto) [place] % (Auto) Eos % (Auto) Baso % (Auto) Neut # (Auto) Lymph # (Auto) [place] # (Auto) Eos # (Auto) Baso # (Auto) Immature Gran # (Auto) PT INR APTT PTT Ratio Sodium Potassium Chloride Carbon Dioxide Anion Gap BUN Creatinine Est Cr Clr Drug Dosing Est GFR ( Amer) Est GFR (Non-Af Amer) BUN/Creatinine Ratio Glucose Lactate 1.0 Calcium Magnesium Total Bilirubin AST ALT Alkaline Phosphatase CK-MB (CK-2) Troponin I NT-Pro-B Natriuret Pep Total Protein Albumin Globulin Albumin/Globulin Ratio Beta-Hydroxybutyric Acd Procalcitonin COVID-19 Eval [facility] SARS-CoV-2, RNA, NAAT NEGATIVE 04/02/20 20:05 WBC RBC Hgb Hct MCV MCH MCHC RDW Std Deviation RDW Coeff of Michelle Plt Count MPV Immature Gran % (Auto) Neut % (Auto) Lymph % (Auto) [place] % (Auto) Eos % (Auto) Baso % (Auto) Neut # (Auto) Lymph # (Auto) [place] # (Auto) Eos # (Auto) Baso # (Auto) Immature Gran # (Auto) PT INR APTT PTT Ratio Sodium Potassium Chloride Carbon Dioxide Anion Gap BUN Creatinine Est Cr Clr Drug Dosing Est GFR ( Amer) Est GFR (Non-Af Amer) BUN/Creatinine Ratio Glucose Lactate Calcium Magnesium Total Bilirubin AST ALT Alkaline Phosphatase CK-MB (CK-2) Troponin I NT-Pro-B Natriuret Pep Total Protein Albumin Globulin Albumin/Globulin Ratio Beta-Hydroxybutyric Acd Procalcitonin 0.16 COVID-19 Eval Order SARS-CoV-2, RNA, NAAT Diagnostic Findings cxr - diffuse pulmonary edema, b/l pleural effusions, and cardiomegaly EKG - my reading - some artifact; sinus tach - V5/V6 with inverted T waves - new in comparison to 12/2019 EKG Code Status & VTE Plan Code Status full VTE Prophylaxis Plan VTE Prophylaxis will be ordered: Yes Critical Care Time Critical Care Time: Yes Total Critical Care Time: 70 PG Care Time/CCT Total # of Minutes Spent Total Time Spent with Patient: Total time spent is greater than 50% in coordination of care (as documented) at patient's floor/unit and/or counseling patient: Critical Care Time: Yes Total Critical Care Time: 70 Coding Level of Care Code None Diagnoses Acute hypoxemic respiratory failure J96.01 Chronic kidney disease, stage IV (severe) N18.4 Acute exacerbation of CHF (congestive heart failure) I50.9 Heart failure type: unspecified Kidney transplant recipient Z94.0 Diabetes mellitus type 1 E10.69 Diabetes mellitus complication status: with other specified complication S/P BKA (below knee amputation) unilateral Z89.519 DIANE (obstructive sleep apnea) G47.33 HTN (hypertension) I10 Dyslipidemia E78.5 CAD in [place] artery I25.10 Gastroesophageal reflux K21.9 Esophagitis presence: esophagitis presence not specified Gout M10.9 Gout site: unspecified site Gout etiology: unspecified cause Chronicity: unspecified DVT prophylaxis Z29.9 Additional Codes Critical Care Time - Critical Care Time: Yes ([id number]) Time Spent (min) 70 (1) Acute exacerbation of CHF (congestive heart failure) Heart failure type: unspecified Qualified Code(s): I50.9 - Heart failure, unspecified (2) Diabetes mellitus type 1 Diabetes mellitus complication status: with other specified complication Qualified Code(s): E10.69 - Type 1 diabetes mellitus with other specified complication (3) Gastroesophageal reflux Esophagitis presence: esophagitis presence not specified Qualified Code(s): K21.9 - Gastro-esophageal reflux disease without esophagitis (4) Gout Gout site: unspecified site Gout etiology: unspecified cause Chronicity: unspecified Qualified Code(s): M10.9 - Gout, unspecified
--- NOTE | 2020-04-02 18:43 | XRay Report ---
XR chest 1V portable CLINICAL HISTORY: Dyspnea COMPARISON STUDY: Chest radiograph December 03, 2019. FINDINGS: Moderate enlargement of the cardiac silhouette is noted. No pneumothorax or pleural effusio n is noted. Interstitial thickening indicates pulmonary edema. There are also bilateral airspace opac ities, greater within the right lung. IMPRESSION: 1. Interstitial thickening consistent with moderate pulmonary edema. 2. Bilateral airspace opacities, greater within the right lung. Pulmonary edema is favored although a superimposed infectious process could appear similar. Radiographic follow-up is recommended. ACT 112: Negative or not required by law. Electronically signed by: Carl Terry M.D. 04/02/2020 6:42 PM
[2020-04-02] MEDS ORDERED: CALCIUM GLUCONATE 10% 10 ML VIAL IV STA (19:19)
[2020-04-02] MEDS ORDERED: MoRPHine SULFATE 2 MG/ML CARP IV STA ×2 (19:26→19:48)
[2020-04-02] MEDS ORDERED: CALCIUM GLUCONATE 1000 MG/60 ML NSS IV ONE (20:01)
[2020-04-02 20:27] LABS: Beta-Hydroxybutyrate 1.91 mg/dl (0.2-2.81)
--- NOTE | 2020-04-02 21:01 | Critical Care Consultation ---
Date of Consultation April 02, 2020 Assessment & Plan (1) Acute hypoxemic respiratory failure: Reason Critically Ill: 44-year-old male with history of renal transplant, diastolic HF, CKD stage IV presents to the ICU with acute hypoxic respiratory failure and volume overload requiring BiPAP and aggressive diuresis Neuro - [facility] ICU: Negative Cardiac - Diastolic heart failure/CADlast echo from October 2019 with EF 50 to 55%, mild concentric left ventricular hypertrophy, mild aortic stenosis, moderate mitral regurg, mild pulmonary hypertension. We will repeat study on this admission -Initial troponin negative, EKG: Sinus tachycardia without ST elevations, lateral T wave inversions. Follow-up serial troponins -Continue diuresis with Lasix, will add metolazone 2.5 mg if unable to achieve adequate diuresis with Lasix alone per nephrology recommendation -History of nikolai CAD with prior STEMI requiring PCI. Continue home regimen ASA, MTP, statin, Plavix -Continuous monitoring on telemetry Respiratory - Acute hypoxic respiratory failurelikely secondary to CHF exacerbation/volume overload in the setting of diastolic heart failure and CKD stage IV, now showing significant improvement with current management -Chest x-ray consistent with pulmonary congestion, fine crackles on exam, BNP elevated greater than 10,000 -No clear evidence of infectious process. COVID-19 negative. -Patient has shown significant improvement on BiPAP, now maintaining oxygen saturation with 30% FiO2 and respiratory rate significantly improved into the 20s. We will continue BiPAP therapy overnight -History of DIANE and questionable compliance with CPAP -Given 120 mg total of Lasix in the ED, diuresis complicated by poor kidney function. Nephrology following appreciate recommendations -Continuous monitoring on pulse ox GI - Heart healthy/renal diet GERDcontinue PPI RENAL/LYTES - CKD stage IV/renal transplantcreatinine appears to be consistent with prior baselines at 3.4, patient follows nephrology with Dr. Samson and outpatient. Nephrology consulted appreciate recommendations -We will proceed with aggressive diuresis given respiratory status with appreciation to inherent risk of worsening renal function. We will add metolazone if needed per nephrology recommendations -Status post kidney transplant 2002continue home regimen prednisone 5 mg and sirolimus 4 mg -Electrolytes within acceptable range, will continue to monitor creatinine and electrolytes with routine BMPs - Foleystrict I's and this ENDO - DM type Icurrently managed on insulin pump, hemoglobin A1c pending. -Patient's home pump disconnected and transition to sliding scale. Pharmacy glycemic consult placed. -ICU hyperglycemic protocol Goutcontinue allopurinol Follow-up TSH in a.m. HEME - H&H stable, monitor routine CBCs ID - no indication for infectious process at this time as patient has negative pro-Lele, afebrile, lactate within normal limits. COVID-19 negative. Nasal MRSA pending LINES/IV ACCESS - Peripheral IVs DVT PROPHYLAXIS - SCDs, heparin I have personally spent 40 minutes of critical care time in the direct management of this patient. This is a life/limb threatening event. This includes time spent evaluating patient, direct bedside care, chart review, placing orders, interpretation of diagnostic studies, discussion with consultants, patient, and family members, as well as other required patient management activities. This time is exclusive of all separately billable procedures, and teaching time and separate from and in addition to any other critical care service time. Thank you for allowing us to participate in the care of this patient. Please refer to my attending physician's documentation for any further recommendations. (2) Kidney transplant recipient: (3) DVT prophylaxis: (4) Acute exacerbation of CHF (congestive heart failure): (5) Diabetes mellitus type 1: (6) Vitamin D deficiency: (7) Elevated serum creatinine: (8) Status post total hip replacement, left: (9) Hx of BKA: (10) Chronic kidney disease, stage IV (severe): History of Present Illness Attending Physician: Kobe sEpitia History of Present Illness Mr. Dalton is a 44-year-old male PMH including renal transplant 2001 (on prednisone and sirolimus), CKD stage IV, DM type I (on insulin pump), left BKA, diastolic CHF, and CAD s/p stent, who presented to the emergency department earlier today with complaints of dyspnea which been ongoing for the past 3 days and significantly worsened throughout the day, causing him to come to the emerge ncy department. On arrival in the ER, patient was found to be severely tachypneic with respiratory rate in the 40s and was noted to have fine crackles bilaterally. Chest x-ray was consistent with acute pulmonary edema. Bedside ultrasound was performed in the ED which demonstrated B-lines throughout bilateral lung heaton and plethoric IVC. Patient's creatinine was similar to prior baselines over the past year at 3.5. He received 80 of Lasix and was placed on BiPAP in the ED and has since shown significant improvement in respiratory status. Dr. Oneil with nephrology was contacted and recommended additional 40 of Lasix. COVID-19 test was negative. Patient was also noted to experience chest heaviness on arrival to the ED which did improve following administration of BiPAP. EKG without ST elevation and troponin negative. On arrival to the ICU the patient states that he is much more comfortable from a pulmonary standpoint and respiratory rate has improved to the mid 20s. He is m aintaining oxygen saturation on BiPAP at 30% FiO2. He is currently without labored breathing or use of accessory muscles, and was previously displaying tripoding in the ED. He denies recent illness or sore throat, fevers, headache, dizziness, chest pain or palpitations, nausea or vomiting or abdominal pain. Patient states he is voided as usual without issue. He states he has been taking medications as prescribed and denies excessive fluid intake. He reports blood glucoses have been well controlled with insulin pump and he has been going to work as usual in his normal state of health up until today. We will continue current therapy with BiPAP and diuresis in the ICU for now, patient is showing good progress at this time. Allergies Allergy/AdvReac Type Severity Reaction Status Date / Time PORK INSULIN Allergy Unknown Hives Uncoded 04/02/20 17:50 Home Medications Medication Instructions Recorded Confirmed Type glucagon (human recombinant) 1 mg 1 mg IM DIRECTED PRN 10/05/18 04/02/20 History solution for injection lancets 33 gauge #100 ea 10/05/18 03/20/20 History Dexcom G6 [place] Operator #1 ea NS 11/30/18 03/20/20 Rx insulin syringe-needle U-100 0.5 #100 ea 09/09/19 03/20/20 Rx mL 31 gauge x 5/16" metoprolol succinate 75 mg PO HS 10/10/19 04/02/20 History darbepoetin sarah in polysorbat 200 200 mcg SUBCUT Q14D ml 11/11/19 04/02/20 History mcg/0.4 mL in polysorbate injection syringe Dexcom G6 Transmitter #1 ea NS 11/25/19 03/20/20 Rx Dexcom G6 Sensor #9 ea NS 12/01/19 03/20/20 Rx allopurinol 300 mg tablet 300 mg PO HS #90 tab 03/30/20 04/02/20 Rx aspirin 81 mg tablet,delayed 81 mg PO HS #30 tab 03/30/20 04/02/20 Rx release atorvastatin 80 mg tablet 80 mg PO HS #90 tab 03/30/20 04/02/20 Rx clindamycin phosphate 1 % topical 1 applic TOPICAL BID #60 ml 03/30/20 04/02/20 Rx solution doxycycline hyclate 50 mg capsule 50 mg PO BID #180 cap 03/30/20 04/02/20 Rx furosemide 40 mg tablet 80 mg PO Q OTHER DAY #60 tab 03/30/20 04/02/20 Rx pantoprazole 40 mg tablet,delayed 40 mg PO HS #90 tab 03/30/20 04/02/20 Rx release prednisone 5 mg tablet 5 mg PO HS #90 tab 03/30/20 04/02/20 Rx pregabalin 75 mg capsule 150 mg PO HS #90 cap 03/30/20 04/02/20 Rx sertraline 50 mg tablet 100 mg PO HS #90 tab 03/30/20 04/02/20 Rx sirolimus 2 mg tablet 4 mg PO HS #180 tab 03/30/20 04/02/20 Rx calcitriol 0.25 mcg PO HS 04/02/20 04/02/20 History clopidogrel [Plavix] 75 mg PO HS 04/02/20 04/02/20 History insulin aspart U-100 [Novolog 50 unit SUBCUT DAILY 04/02/20 04/02/20 History U-100 Insulin aspart] Patient History Medical History (Updated 04/02/20 @ 21:13 by Kobe Espitia) Anxiety CAD (coronary artery disease) Chronic renal insufficiency Deep vein thrombosis ARM (10 YEARS AGO) AT [facility] Depression Diabetes mellitus type 1 INSULIN PUMP Fistula LEFT ARM (NON FUNCTIONING) GERD (gastroesophageal reflux disease) Gout Hyperlipidemia Hypertension Mitral regurgitation MILD-MOD Myocardial Infarction 2016 Peripheral neuropathy Sensory problems with limbs Sleep apnea CPAP Surgical History (Updated 04/02/20 @ 21:11 by Kobe Espitia) H/O eye surgery LEFT/RT LASER SURGERY History of below knee amputation LEFT REVISION (5 TOTAL) History of cardiac cath 2016 - [place] - [facility] - 2 STENTS - FOLLOWS W/ DR. JURADO History of heart artery stent 2016 (2 STENTS PLACED) AT [facility] History of right hip replacement 03/17/2019 [facility] Kidney transplant recipient 2002 Family History Grandfather Family history of diabetes mellitus Other No family history of adverse response to anesthesia Social History Smoking Status: Never smoker Second Hand Exposure: No; Hx Alcohol Use: Yes Alcohol type: beer Alcohol Intake Frequency: 2-3 x/Week Hx Substance Use: No Preferred Language: Irish Communication Ability: Effective Circulation Tender Required: No Beliefs That Will Affect Care: None marital status: Current Living Situation: Spouse current occupational status: employed 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 - [employer] How many Children do You have: 2 How many Children do You have Comment: 1 is Other Information That Helps Us Care for You: No Feels Safe at Home: Yes Safety Concerns: Feels Safe At This Time Assistive Devices: Prosthesis Review of Systems Review of Systems: All systems reviewed & are unremarkable except as noted in HPI & below Physical Exam Constitutional: cooperative and comfortable; no acute distress and not diaphoretic Eyes: PERRL, conjunctivae normal, anicteric sclerae ENMT: external ear and nose normal, oropharynx normal Neck: trachea midline, no thyromegaly Respiratory: Fine crackles auscultated bilaterally in all lobes, no wheezes. Symmetrical chest wall movement. Nonlabored breathing. No current respiratory distress. Cardiovascular: Rate/Rhythm: + tachycardic Heart Sounds: normal S1 and normal S2 Extremities: normal capillary refill; no edema Gastrointestinal (Abdomen): normal bowel sounds, soft, nontender, no hepatosplenomegaly Skin: no rashes, warm and dry Neurologic: PERRL, EOMI, accommodation nl, no face palsy, no dysarthria Psychiatric: A+Ox3, euthymic affect Genitourinary: Indwelling [place] catheter Results & Data Results & Data ([facility]) Vital Signs (Past 12 Hours) Vital Signs Temp Pulse Resp BP Pulse Ox 04/02/20 20:04 109 H 33 H 121/70 99 04/02/20 20:00 110 H 36 H 98 04/02/20 19:50 115 H 37 H 141/85 H 04/02/20 19:40 111 H 38 H 142/92 H 98 04/02/20 19:35 115 H 40 H 174/105 H 98 04/02/20 19:31 116 H 32 H 04/02/20 19:20 126 H 35 H 133/112 H 99 04/02/20 19:10 114 H 36 H 137/86 96 04/02/20 19:03 115 H 38 H 96 04/02/20 19:01 116 H 34 H 146/90 H 97 04/02/20 19:00 116 H 39 H 95 04/02/20 18:51 115 H 38 H 97 04/02/20 18:50 116 H 40 H 156/92 H 96 04/02/20 18:40 115 H 25 H 152/90 H 96 04/02/20 18:31 116 H 43 H 95 04/02/20 18:30 116 H 37 H 165/96 H 94 04/02/20 18:20 118 H 45 H 161/106 H 92 04/02/20 18:00 109 H 27 H 99 04/02/20 17:58 110 H 32 H 92 04/02/20 17:45 97 04/02/20 17:43 110 H 32 H 96 04/02/20 17:42 109 H 32 H 202/124 H 99 04/02/20 17:38 109 H 32 H 199/121 H 98 04/02/20 17:35 109 H 30 H 98 04/02/20 17:26 36.0 C L 111 H 28 H 145/68 H 88 L Coding Level of Care Code Critical Care 1st 30-74 mins Diagnoses Acute hypoxemic respiratory failure J96.01 Kidney transplant recipient Z94.0 DVT prophylaxis Z29.9 Acute exacerbation of CHF (congestive heart failure) I50.9 Heart failure type: unspecified Diabetes mellitus type 1 E10.69 Diabetes mellitus complication status: with other specified complication Vitamin D deficiency E55.9 Elevated serum creatinine R79.89 Status post total hip replacement, left Z96.642 Hx of BKA Z89.512 Laterality: left Chronic kidney disease, stage IV (severe) N18.4 (1) Acute exacerbation of CHF (congestive heart failure) Heart failure type: unspecified Qualified Code(s): I50.9 - Heart failure, unspecified (2) Diabetes mellitus type 1 Diabetes mellitus complication status: with other specified complication Qualified Code(s): E10.69 - Type 1 diabetes mellitus with other specified complication (3) Hx of BKA Laterality: left Qualified Code(s): Z89.512 - Acquired absence of left leg below knee
[2020-04-02] MEDS ORDERED: ICU PROTOCOL FOR HYPERGLYCEMIA PRN (21:02)
[2020-04-02] MEDS ORDERED: LABETALOL HCL IV 5 MG/ML 20ML IV PRN (21:02)
[2020-04-02] MEDS ORDERED: INFLUENZA VIRUS QUAD VACCINE 0.5 ML SYR IM ONE (21:10)
[2020-04-02] MEDS ORDERED: INFLUENZA ADMINISTRATION CHARGE ONE (21:10)
[2020-04-02] MEDS: ASPIRIN 81 MG ECTAB PO SCH (21:51)
[2020-04-02] MEDS: HEPARIN SOD 5,000 UNIT/0.5 ML VIAL SQ SCH (21:51)
[2020-04-02] MEDS: ATORVASTATIN 40 MG TAB PO SCH (21:52)
[2020-04-02] MEDS: CLOPIDOGREL BISULFATE 75 MG TAB PO SCH (21:53)
[2020-04-02] MEDS: predniSONE 5 MG TAB PO SCH (21:53)
[2020-04-02] MEDS: CALCITRIOL 0.25 MCG CAPSULE PO SCH (21:54)
[2020-04-02] MEDS: PANTOprazole 40 MG TAB PO SCH (21:54)
[2020-04-02] MEDS: SIROLIMUS 0.5 MG TABLET PO SCH (21:55)
[2020-04-02] MEDS: METOPROLOL SUCC 50MG EXT REL TAB PO SCH (21:56)
[2020-04-02] MEDS: DOXYCYCLINE HYCLATE 50 MG CAP PO SCH (21:58)
[2020-04-02] MEDS: allopurinoL 300 MG TAB PO SCH (21:59)
[2020-04-02] MEDS: SERTRALINE HCL 100 MG TABLET PO SCH (21:59)
[2020-04-02] MEDS: PREGABALIN 150 MG CAP PO SCH (22:01)
[2020-04-02] MEDS ORDERED: GLUCOSE 40% GEL 15 GM TUBE PO PRN (23:15)
[2020-04-02] MEDS ORDERED: GLUCAGON FOR INJ 1 MG VIAL SQ PRN (23:15)
[2020-04-02] MEDS ORDERED: DC ALL PREVIOUSLY ORDERED DIABETES MEDS ONE (23:15)
[2020-04-02] MEDS ORDERED: DEXTROSE 50% 50 ML SYRINGE IV PRN (23:15)
[2020-04-02] MEDS ORDERED: GLUCOSE 10 TABS/TUBE PO PRN (23:15)
[2020-04-02] MEDS ORDERED: CARBOHYDRATES FOR HYPOGLYCEMIA PO PRN (23:15)
[2020-04-02] MEDS ORDERED: PHARMACY GLYCEMIC MGMT CONSULT PRN (23:37)
[2020-04-02] MEDS ORDERED: INSULIN GLARGINE SOLOSTAR 100 UNITS/ML 3 ML PEN SC ONE (23:45)
[2020-04-03] MEDS: INSULIN ASPART 100 UNITS/ML 3 ML PEN SC SCH ×5 (00:54→20:49)
[2020-04-03] MEDS ORDERED: XOPENEX/ATROVENT 1.25mg/0.5MG NEB COMBO NEB SCH (01:00)
[2020-04-03] MEDS: IPRATROPIUM BROMIDE NEB SOLN 0.02% 2.5 ML VIAL INH SCH ×2 (02:09→07:13)
[2020-04-03] MEDS: LEVALBUTEROL 1.25MG/0.5ML NEB INH SCH ×2 (02:10→07:13)
[2020-04-03] MEDS ORDERED: INSULIN ASPART 100 UNITS/ML 3 ML PEN SC ONE ×2 (03:00→04:00)
[2020-04-03] MEDS ORDERED: INSULIN HUMAN REGULAR PER UNIT 7 UNITS in SYRINGE 6.93 ML IV ONE (04:15)
[2020-04-03 04:37] LABS: Basophils # (auto) 0.01 K/uL (0-0.2); Basophils % (auto) 0.1 %; Eosinophils # (auto) 0.03 K/uL (0-0.5); Eosinophils % (auto) 0.3 %; Hematocrit (blood only) 24.9 % (42-52); Immature Granulocytes # (auto) 0.03 K/uL (0.00-0.02); Immature Granulocytes % (auto) 0.3 %; Lymphocytes # (auto) 1.48 K/uL (1.2-3.4); Lymphocytes % (auto) 13.8 %; Mean Corpuscular Hemoglobin 26.9 pg (25-34); Mean Corpuscular Hgb Conc 32.1 g/dL (32-36); Mean Corpuscular Volume 83.8 fL (80-100); Mean Platelet Volume 12.6 fL (7.4-10.4); Monocytes # (auto) 0.52 K/uL (0.11-0.59); Monocytes % (auto) 4.8 %; Neutrophils # (auto) 8.66 K/uL (1.4-6.5); Neutrophils % (auto) 80.7 %; Nucleated RBC # (auto) 0.02 K/uL (0-0); Nucleated RBC % (auto) 0.2 %; Platelet Count 159 K/uL (130-400); RDW Standard Deviation 52.3 fL (36.4-46.3); Red Blood Count 2.97 M/uL (4.7-6.1); White Blood Count 10.73 K/uL (4.8-10.8)
[2020-04-03 04:58] LABS: BUN Creatinine Ratio 28.2 (10-20); Calcium 8.1 mg/dl (8.5-10.1); Creatinine Clr Calc Pharmacy 24.5 ml/min; Est GFR (African American) 21.9; Est GFR (Non-African American) 18.9; Potassium 4.4 mmol/L (3.5-5.1)
[2020-04-03 05:14] LABS: Thyroid Stimulating Hormone 0.829 uIu/ml (0.300-4.500); Troponin I 0.081 ng/ml (0-0.045)
[2020-04-03 06:08] LABS: Estimated Average Glucose 197 mg/dl; Hemoglobin A1C 8.5 % (4.5-5.6)
[2020-04-03 06:42] LABS: Magnesium 1.9 mg/dl (1.8-2.4); Phosphorus 4.4 mg/dl (2.5-4.9)
--- NOTE | 2020-04-03 07:04 | Critical Care Progress Note ---
Date of Service April 03, 2020 Assessment & Plan (1) Acute hypoxemic respiratory failure: Reason Critically Ill: 44-year-old male with history of renal transplant, diastolic HF, CKD stage IV presented to the ICU with acute hypoxic respiratory failure and volume overload requiring BiPAP and aggressive diuresis; improved following continued diuresis, stable for downgrade out of ICU. Neuro: - CAM ICU: Negative Cardiac - - Diastolic heart failure/CADlast echo from October 2019 with EF 50 to 55%, mild concentric left ventricular hypertrophy, mild aortic stenosis, moderate mitral regurg, mild pulmonary hypertension. We will repeat study on this admission -troponin downtrending -Continue diuresis with Lasix, consider addition of metolazone 2.5 mg if unable to achieve adequate diuresis with Lasix alone per nephrology recommendation -History of q[place]angin CAD with prior STEMI requiring PCI. Continue home regimen ASA, MTP, statin, Plavix -Continuous monitoring on telemetry Respiratory: - Acute hypoxic respiratory failurelikely secondary to CHF exacerbation/volume overload in the setting of diastolic heart failure and CKD stage IV, now showing significant improvement with current management -Chest x-ray consistent with pulmonary congestion, fine crackles on exam, BNP elevated greater than 10,000 -No clear evidence of infectious process. COVID-19 negative. -Patient has shown significant improvement on BiPAP, now maintaining oxygen saturation with 30% FiO2 and respiratory rate significantly improved into the 20s. -Given 120 mg total of Lasix in the ED, diuresis complicated by poor kidney function. Nephrology following appreciate recommendations -discontinue BiPAP this AM, successfully transitioned to room air without complication -History of DIANE and questionable compliance with CPAP -Continuous monitoring on pulse ox GI: - Heart healthy/renal diet - GERDcontinue PPI Renal/Lytes: - CKD stage IV/renal transplantcreatinine appears to be consistent with prior baselines at 3.4, patient follows nephrology with Dr. Samson and outpatient. Nephrology consulted appreciate recommendations -We will proceed with aggressive diuresis given respiratory status with appreciation to inherent risk of worsening renal function. We will add metolazone if needed per nephrology recommendations -Status post kidney transplant 2002continue home regimen prednisone 5 mg and sirolimus 4 mg -continue to monitor creatinine and electrolytes with routine BMPs : - Foleystrict I's and O's ENDO: - DM type Icurrently managed on insulin pump, hemoglobin A1c pending. -Patient's home pump disconnected and transition to sliding scale. Pharmacy glycemic consult placed. -ICU hyperglycemic protocol - Goutcontinue allopurinol - TSH 0.829 this AM HEME: - H&H stable, monitor routine CBCs ID: - no indication for infectious process at this time -COVID-19 negative. Nasal MRSA negative LINES/IV ACCESS: - Peripheral IVs DVT PROPHYLAXIS: - SCDs, heparin Admission and Anticipated Discharge Date Admission Date: April 02, 2020 Supervising Physician Co-Signing Physician Notes Dr. Box was resident physician during care of patient. I separately evaluated patient for landin portions of the history and the exam. I was present during the critical portion of medical decision making, and I discussed the case with the resident. I generally agree with the findings and plan. Patient was discussed in multidisciplinary rounds, patient has had adequate diuresis and is significantly improved of his acute hypoxemic respiratory failure which is most likely secondary to volume overload in the setting of congestive heart failure compounded by chronic kidney disease status post kidney transplant. Also discussed with the hospitalist service who is willing to accept the patient. I have placed transfer orders. Subjective Tolerated BiPAP overnight without continued symptoms, states that he feels almost back to his normal self at this point in time. Was regularly doing his weight checks prior to admission and was within his normal weight point without much chemical cell changer the last several days despite feeling short of breath. Tolerated wean off BiPAP early this morning without return of symptoms. Review of Systems Review of Systems: All systems reviewed & are unremarkable except as noted in Subjective Physical Exam Constitutional: WD/WN, vitals as above Eyes: PERRL, conjunctivae normal, anicteric sclerae Respiratory: normal respiratory effort; no respiratory distress, no labored breathing and no retractions Auscultation: + crackles (b/l lower lobes); no rales, no rhonchi and no wheezes Cardiovascular: Rate/Rhythm: regular rate and regular rhythm Heart Sounds: no gallop, no murmur and no cardiac rub Vessels: normal peripheral pulses; no JVD Extremities: no pedal edema and no edema Gastrointestinal (Abdomen): normal bowel sounds, soft, nontender, no hepatosplenomegaly Skin: no rashes, warm and dry Neurologic: PERRL, EOMI, accommodation nl, no face palsy, no dysarthria Psychiatric: A+Ox3, euthymic affect Results & Data Results & Data ([facility]) Vital Signs (Past 12 Hours) Vital Signs Temp Pulse Pulse Resp BP BP Pulse Ox 04/03/20 05:23 87 19 96 04/03/20 02:14 94 H 20 95 04/03/20 02:12 94 H 20 95 04/03/20 02:00 37.3 C 95 H 22 95 04/03/20 01:47 37.3 C 97 H 22 118/68 94 04/03/20 01:30 37.3 C 97 H 22 96 04/03/20 01:00 37.3 C 98 H 23 97 04/03/20 00:47 37.3 C 99 H 23 119/70 95 04/03/20 00:30 37.3 C 100 H 25 H 93 04/03/20 00:00 37.3 C 100 H 24 95 04/02/20 23:46 37.3 C 101 H 24 160/89 H 93 04/02/20 23:30 37.3 C 101 H 26 H 95 04/02/20 23:00 37.1 C 103 H 28 H 92 04/02/20 22:47 37.0 C 101 H 30 H 131/98 96 04/02/20 22:30 36.9 C 102 H 30 H 95 04/02/20 22:09 101 H 23 100 04/02/20 22:00 36.9 C 103 H 25 H 94 04/02/20 21:46 36.9 C 101 H 23 118/70 97 04/02/20 21:30 37.1 C 102 H 23 100 04/02/20 21:03 37.4 C 105 H 24 111/69 99 04/02/20 21:00 37.2 C 103 H 22 99 04/02/20 20:47 37.4 C 105 H 20 111/69 100 04/02/20 20:31 102 H 23 99 04/02/20 20:30 102 H 24 95/59 L 100 04/02/20 20:05 109 H 26 H 99 04/02/20 20:04 109 H 33 H 121/70 99 04/02/20 20:00 110 H 36 H 98 04/02/20 19:50 115 H 37 H 141/85 H 04/02/20 19:40 111 H 38 H 142/92 H 98 04/02/20 19:35 115 H 40 H 174/105 H 98 04/02/20 19:31 116 H 32 H 04/02/20 19:20 126 H 35 H 133/112 H 99 04/02/20 19:10 114 H 36 H 137/86 96 04/02/20 19:03 115 H 38 H 96 04/02/20 19:01 116 H 34 H 146/90 H 97 04/02/20 19:00 116 H 39 H 95 Laboratory Results 04/03/20 04/03/20 04/03/20 Range/Units 04:13 04:13 04:13 WBC 10.73 (4.8-10.8) K/uL RBC 2.97 L (4.7-6.1) M/uL Hgb 8.0 L (14.0-18.0) g/dL Hct 24.9 L (42-52) % MCV 83.8 (80-100) fL MCH 26.9 (25-34) pg MCHC 32.1 (32-36) g/dL RDW Std Deviation 52.3 H (36.4-46.3) fL RDW Coeff of Michelle 17.0 H (11.5-14.5) % Plt Count 159 (130-400) K/uL MPV 12.6 H (7.4-10.4) fL Immature Gran % (Auto) 0.3 % Neut % (Auto) 80.7 % Lymph % (Auto) 13.8 % Sauk % (Auto) 4.8 % Eos % (Auto) 0.3 % Baso % (Auto) 0.1 % Neut # (Auto) 8.66 H (1.4-6.5) K/uL Lymph # (Auto) 1.48 (1.2-3.4) K/uL [place] # (Auto) 0.52 (0.11-0.59) K/uL Eos # (Auto) 0.03 (0-0.5) K/uL Baso # (Auto) 0.01 (0-0.2) K/uL Immature Gran # (Auto) 0.03 H (0.00-0.02) K/uL Absolute Nucleated RBC 0.02 H (0-0) K/uL Nucleated RBC % (auto) 0.2 % PT (9.0-12.0) Seconds INR (0.9-1.1) APTT (21.0-31.0) Seconds PTT Ratio Sodium 141 (136-145) mmol/L Potassium 4.4 (3.5-5.1) mmol/L Chloride 112 H (98-107) mmol/L Carbon Dioxide 19 L (21-32) mmol/L Anion Gap 10.0 (3-11) BUN 104 H (7-18) mg/dl Creatinine 3.68 H (0.6-1.4) mg/dl Est Cr Clr Drug Dosing 24.5 ml/min Est GFR ( Amer) 21.9 Est GFR (Non-Af Amer) 18.9 BUN/Creatinine Ratio 28.2 H (10-20) Glucose 298 H (70-99) mg/dl POC Glucose (70-99) mg/dl Estimat Average Glucose mg/dl Hemoglobin A1c (4.5-5.6) % Lactate (0.4-2.0) mmol/L Calcium 8.1 L (8.5-10.1) mg/dl Phosphorus 4.4 (2.5-4.9) mg/dl Magnesium 1.9 (1.8-2.4) mg/dl Total Bilirubin (0.2-1) mg/dl AST (15-37) U/L ALT (12-78) U/L Alkaline Phosphatase (45-117) U/L CK-MB (CK-2) (0.5-3.6) ng/ml Troponin I 0.081 H* (0-0.045) ng/ml NT-Pro-B Natriuret Pep (0-450) pg/ml Total Protein (6.4-8.2) gm/dl Albumin (3.4-5.0) gm/dl Globulin (2.5-4.0) gm/dl Albumin/Globulin Ratio (0.9-2) Beta-Hydroxybutyric Acd (0.2-2.81) mg/dl Procalcitonin (0-0.5) ng/ml TSH 0.829 (0.300-4.500) uIu/ml Nasal Screen MRSA (PCR) (Negative) COVID-19 Eval Order SARS-CoV-2, RNA, NAAT (NEGATIVE) 04/03/20 04/03/20 04/03/20 Range/Units 04:13 03:57 00:51 WBC (4.8-10.8) K/uL RBC (4.7-6.1) M/uL Hgb (14.0-18.0) g/dL Hct (42-52) % MCV (80-100) fL MCH (25-34) pg MCHC (32-36) g/dL RDW Std Deviation (36.4-46.3) fL RDW Coeff of Michelle (11.5-14.5) % Plt Count (130-400) K/uL MPV (7.4-10.4) fL Immature Gran % (Auto) % Neut % (Auto) % Lymph % (Auto) % [place] % (Auto) % Eos % (Auto) % Baso % (Auto) % Neut # (Auto) (1.4-6.5) K/uL Lymph # (Auto) (1.2-3.4) K/uL [place] # (Auto) (0.11-0.59) K/uL Eos # (Auto) (0-0.5) K/uL Baso # (Auto) (0-0.2) K/uL Immature Gran # (Auto) (0.00-0.02) K/uL Absolute Nucleated RBC (0-0) K/uL Nucleated RBC % (auto) % PT (9.0-12.0) Seconds INR (0.9-1.1) APTT (21.0-31.0) Seconds PTT Ratio Sodium (136-145) mmol/L Potassium (3.5-5.1) mmol/L Chloride (98-107) mmol/L Carbon Dioxide (21-32) mmol/L Anion Gap (3-11) BUN (7-18) mg/dl Creatinine (0.6-1.4) mg/dl Est Cr Clr Drug Dosing ml/min Est GFR ( Amer) Est GFR (Non-Af Amer) BUN/Creatinine Ratio (10-20) Glucose (70-99) mg/dl POC Glucose 328 H* 376 H* (70-99) mg/dl Estimat Average Glucose 197 mg/dl Hemoglobin A1c 8.5 H (4.5-5.6) % Lactate (0.4-2.0) mmol/L Calcium (8.5-10.1) mg/dl Phosphorus (2.5-4.9) mg/dl Magnesium (1.8-2.4) mg/dl Total Bilirubin (0.2-1) mg/dl AST (15-37) U/L ALT (12-78) U/L Alkaline Phosphatase (45-117) U/L CK-MB (CK-2) (0.5-3.6) ng/ml Troponin I (0-0.045) ng/ml NT-Pro-B Natriuret Pep (0-450) pg/ml Total Protein (6.4-8.2) gm/dl Albumin (3.4-5.0) gm/dl Globulin (2.5-4.0) gm/dl Albumin/Globulin Ratio (0.9-2) Beta-Hydroxybutyric Acd (0.2-2.81) mg/dl Procalcitonin (0-0.5) ng/ml TSH (0.300-4.500) uIu/ml Nasal Screen MRSA (PCR) (Negative) COVID-19 Eval Order SARS-CoV-2, RNA, NAAT (NEGATIVE) 04/02/20 04/02/20 04/02/20 Range/Units Unknown 22:57 20:05 WBC (4.8-10.8) K/uL RBC (4.7-6.1) M/uL Hgb (14.0-18.0) g/dL Hct (42-52) % MCV (80-100) fL MCH (25-34) pg MCHC (32-36) g/dL RDW Std Deviation (36.4-46.3) fL RDW Coeff of Michelle (11.5-14.5) % Plt Count (130-400) K/uL MPV (7.4-10.4) fL Immature Gran % (Auto) % Neut % (Auto) % Lymph % (Auto) % [place] % (Auto) % Eos % (Auto) % Baso % (Auto) % Neut # (Auto) (1.4-6.5) K/uL Lymph # (Auto) (1.2-3.4) K/uL [place] # (Auto) (0.11-0.59) K/uL Eos # (Auto) (0-0.5) K/uL Baso # (Auto) (0-0.2) K/uL Immature Gran # (Auto) (0.00-0.02) K/uL Absolute Nucleated RBC (0-0) K/uL Nucleated RBC % (auto) % PT (9.0-12.0) Seconds INR (0.9-1.1) APTT (21.0-31.0) Seconds PTT Ratio Sodium (136-145) mmol/L Potassium (3.5-5.1) mmol/L Chloride (98-107) mmol/L Carbon Dioxide (21-32) mmol/L Anion Gap (3-11) BUN (7-18) mg/dl Creatinine (0.6-1.4) mg/dl Est Cr Clr Drug Dosing ml/min Est GFR ( Amer) Est GFR (Non-Af Amer) BUN/Creatinine Ratio (10-20) Glucose (70-99) mg/dl POC Glucose (70-99) mg/dl Estimat Average Glucose mg/dl Hemoglobin A1c (4.5-5.6) % Lactate (0.4-2.0) mmol/L Calcium (8.5-10.1) mg/dl Phosphorus (2.5-4.9) mg/dl Magnesium (1.8-2.4) mg/dl Total Bilirubin (0.2-1) mg/dl AST (15-37) U/L ALT (12-78) U/L Alkaline Phosphatase (45-117) U/L CK-MB (CK-2) (0.5-3.6) ng/ml Troponin I 0.115 H* (0-0.045) ng/ml NT-Pro-B Natriuret Pep (0-450) pg/ml Total Protein (6.4-8.2) gm/dl Albumin (3.4-5.0) gm/dl Globulin (2.5-4.0) gm/dl Albumin/Globulin Ratio (0.9-2) Beta-Hydroxybutyric Acd (0.2-2.81) mg/dl Procalcitonin 0.16 (0-0.5) ng/ml TSH (0.300-4.500) uIu/ml Nasal Screen MRSA (PCR) Negative (Negative) COVID-19 Eval Order SARS-CoV-2, RNA, NAAT (NEGATIVE) 04/02/20 04/02/20 04/02/20 Range/Units 20:05 18:23 18:23 WBC (4.8-10.8) K/uL RBC (4.7-6.1) M/uL Hgb (14.0-18.0) g/dL Hct (42-52) % MCV (80-100) fL MCH (25-34) pg MCHC (32-36) g/dL RDW Std Deviation (36.4-46.3) fL RDW Coeff of Michelle (11.5-14.5) % Plt Count (130-400) K/uL MPV (7.4-10.4) fL Immature Gran % (Auto) % Neut % (Auto) % Lymph % (Auto) % [place] % (Auto) % Eos % (Auto) % Baso % (Auto) % Neut # (Auto) (1.4-6.5) K/uL Lymph # (Auto) (1.2-3.4) K/uL [place] # (Auto) (0.11-0.59) K/uL Eos # (Auto) (0-0.5) K/uL Baso # (Auto) (0-0.2) K/uL Immature Gran # (Auto) (0.00-0.02) K/uL Absolute Nucleated RBC (0-0) K/uL Nucleated RBC % (auto) % PT (9.0-12.0) Seconds INR (0.9-1.1) APTT (21.0-31.0) Seconds PTT Ratio Sodium (136-145) mmol/L Potassium (3.5-5.1) mmol/L Chloride (98-107) mmol/L Carbon Dioxide (21-32) mmol/L Anion Gap (3-11) BUN (7-18) mg/dl Creatinine (0.6-1.4) mg/dl Est Cr Clr Drug Dosing ml/min Est GFR ( Amer) Est GFR (Non-Af Amer) BUN/Creatinine Ratio (10-20) Glucose (70-99) mg/dl POC Glucose (70-99) mg/dl Estimat Average Glucose mg/dl Hemoglobin A1c (4.5-5.6) % Lactate 1.0 (0.4-2.0) mmol/L Calcium (8.5-10.1) mg/dl Phosphorus (2.5-4.9) mg/dl Magnesium (1.8-2.4) mg/dl Total Bilirubin (0.2-1) mg/dl AST (15-37) U/L ALT (12-78) U/L Alkaline Phosphatase (45-117) U/L CK-MB (CK-2) (0.5-3.6) ng/ml Troponin I (0-0.045) ng/ml NT-Pro-B Natriuret Pep (0-450) pg/ml Total Protein (6.4-8.2) gm/dl Albumin (3.4-5.0) gm/dl Globulin (2.5-4.0) gm/dl Albumin/Globulin Ratio (0.9-2) Beta-Hydroxybutyric Acd (0.2-2.81) mg/dl Procalcitonin (0-0.5) ng/ml TSH (0.300-4.500) uIu/ml Nasal Screen MRSA (PCR) (Negative) COVID-19 Eval Order Covid19 [facility]Now [facility] SARS-CoV-2, RNA, NAAT NEGATIVE (NEGATIVE) 04/02/20 04/02/20 04/02/20 Range/Units 17:35 17:35 17:35 WBC 11.08 H (4.8-10.8) K/uL RBC 3.46 L (4.7-6.1) M/uL Hgb 9.3 L (14.0-18.0) g/dL Hct 29.0 L (42-52) % MCV 83.8 (80-100) fL MCH 26.9 (25-34) pg MCHC 32.1 (32-36) g/dL RDW Std Deviation 52.1 H (36.4-46.3) fL RDW Coeff of Michelle 17.1 H (11.5-14.5) % Plt Count 173 (130-400) K/uL MPV 11.8 H (7.4-10.4) fL Immature Gran % (Auto) 0.5 % Neut % (Auto) 62.6 % Lymph % (Auto) 29.3 % [place] % (Auto) 5.1 % Eos % (Auto) 2.3 % Baso % (Auto) 0.2 % Neut # (Auto) 6.93 H (1.4-6.5) K/uL Lymph # (Auto) 3.25 (1.2-3.4) K/uL [place] # (Auto) 0.56 (0.11-0.59) K/uL Eos # (Auto) 0.26 (0-0.5) K/uL Baso # (Auto) 0.02 (0-0.2) K/uL Immature Gran # (Auto) 0.06 H (0.00-0.02) K/uL Absolute Nucleated RBC (0-0) K/uL Nucleated RBC % (auto) % PT 10.9 (9.0-12.0) Seconds INR 1.0 (0.9-1.1) APTT 26.5 (21.0-31.0) Seconds PTT Ratio 0.9 Sodium 141 (136-145) mmol/L Potassium 4.4 (3.5-5.1) mmol/L Chloride 110 H (98-107) mmol/L Carbon Dioxide 20 L (21-32) mmol/L Anion Gap 12.0 H (3-11) BUN 91 H (7-18) mg/dl Creatinine 3.46 H (0.6-1.4) mg/dl Est Cr Clr Drug Dosing 23.7 ml/min Est GFR ( Amer) 23.6 Est GFR (Non-Af Amer) 20.3 BUN/Creatinine Ratio 26.2 H (10-20) Glucose 204 H (70-99) mg/dl POC Glucose (70-99) mg/dl Estimat Average Glucose mg/dl Hemoglobin A1c (4.5-5.6) % Lactate (0.4-2.0) mmol/L Calcium 8.3 L (8.5-10.1) mg/dl Phosphorus (2.5-4.9) mg/dl Magnesium 1.9 (1.8-2.4) mg/dl Total Bilirubin 0.3 (0.2-1) mg/dl AST 31 (15-37) U/L ALT 43 (12-78) U/L Alkaline Phosphatase 210 H (45-117) U/L CK-MB (CK-2) 12.1 H (0.5-3.6) ng/ml Troponin I < 0.015 (0-0.045) ng/ml NT-Pro-B Natriuret Pep 06835 H (0-450) pg/ml Total Protein 7.1 (6.4-8.2) gm/dl Albumin 3.3 L (3.4-5.0) gm/dl Globulin 3.8 (2.5-4.0) gm/dl Albumin/Globulin Ratio 0.9 (0.9-2) Beta-Hydroxybutyric Acd 1.91 (0.2-2.81) mg/dl Procalcitonin (0-0.5) ng/ml TSH (0.300-4.500) uIu/ml Nasal Screen MRSA (PCR) (Negative) COVID-19 Eval Order SARS-CoV-2, RNA, NAAT (NEGATIVE) Medications Administered Current Inpatient Medications Allopurinol (Allopurinol 300 Mg Tab) 300 mg PO [facility] Stop: 05/02/20 21:01 Last Admin: 04/02/20 21:59 Dose: 300 mg Documented by: Aspirin (Aspirin 81 Mg Ectab) 81 mg PO [facility] Stop: 05/02/20 21:01 Last Admin: 04/02/20 21:51 Dose: 81 mg Documented by: Atorvastatin Calcium (Atorvastatin 40 Mg Tab) 80 mg PO [facility] Stop: 05/02/20 21:01 Last Admin: 04/02/20 21:52 Dose: 80 mg Documented by: Calcitriol (Calcitriol 0.25 Mcg Capsule) 0.25 mcg PO [facility] Stop: 05/02/20 21:01 Last Admin: 04/02/20 21:54 Dose: 0.25 mcg Documented by: Clopidogrel Bisulfate (Clopidogrel Bisulfate 75 Mg Tab) 75 mg PO [facility] Stop: 05/02/20 21:01 Last Admin: 04/02/20 21:53 Dose: 75 mg Documented by: Dextrose (Dextrose 50% 50 Ml Syringe) 25 - 50 ml IV UD PRN; Protocol PRN Reason: Hypoglycemia Protocol Stop: 05/02/20 23:14 Doxycycline Hyclate (Doxycycline Hyclate 50 Mg Cap) 50 mg PO BID [facility] Stop: 05/02/20 21:01 Last Admin: 04/02/20 21:58 Dose: 50 mg Documented by: Glucagon (Glucagon For Inj 1 Mg Vial) 1 mg SQ UD PRN; Protocol PRN Reason: Hypoglycemia Protocol Stop: 05/02/20 23:14 Glucose (Glucose 10 Tabs/Tube) 4 - 8 tabs PO UD PRN; Protocol PRN Reason: Hypoglycemia Protocol Stop: 05/02/20 23:14 Glucose (Glucose 40% Gel 15 Gm Tube) 15 - 30 gm PO UD PRN; Protocol PRN Reason: Hypoglycemia Protocol Stop: 05/02/20 23:14 Heparin Sodium (Porcine) (Heparin Sod 5,000 Unit/0.5 Ml Vial) 5,000 units SQ Q12 [facility] Stop: 05/02/20 21:01 Last Admin: 04/02/20 21:51 Dose: 5,000 units Documented by: Insulin Aspart (Insulin Aspart 100 Units/Ml 3 Ml Pen) 0 units SC [facility]; Protocol Stop: 05/03/20 00:00 Last Admin: 04/03/20 00:54 Dose: 5 units Documented by: Ipratropium [place] (Ipratropium [place] Neb Soln 0.02% 2.5 Ml Vial) 0.5 mg INH Q6R [facility] Stop: 05/03/20 00:59 Last Admin: 04/03/20 02:09 Dose: 0.5 mg Documented by: Labetalol HCl (Labetalol Hcl Iv 5 Mg/Ml 20ml) 10 mg IV Q4H PRN PRN Reason: systolic BP >180 Stop: 05/02/20 21:01 Levalbuterol HCl (Levalbuterol 1.25mg/0.5ml Neb) 1.25 mg INH Q6R [facility] Stop: 05/03/20 00:59 Last Admin: 04/03/20 02:10 Dose: 1.25 mg Documented by: Metoprolol Succinate (Metoprolol Succ 50mg Ext Rel Tab) 75 mg PO HS [facility] Stop: 05/02/20 21:01 Last Admin: 04/02/20 21:56 Dose: 75 mg Documented by: Miscellaneous (Clindamycin 1% Topical: Order Awaiting Action) 1 ea N/A QS [facility] Stop: 05/03/20 00:00 Miscellaneous (Icu Protocol For Hyperglycemia) 1 ea N/A PRN PRN; Protocol PRN Reason: Hyperglycemia Protocol Stop: 04/04/20 21:01 Miscellaneous (Carbohydrates For Hypoglycemia ) 15 - 30 gm PO UD PRN PRN Reason: Hypoglycemia Protocol Stop: 05/02/20 23:14 Miscellaneous Information (Pharmacy Glycemic Mgmt Consult) 1 ea N/A UD PRN; Protocol PRN Reason: Consult Stop: 05/02/20 23:36 Pantoprazole Sodium (Pantoprazole 40 Mg Tab) 40 mg PO HS [facility] Stop: 05/02/20 21:01 Last Admin: 04/02/20 21:54 Dose: 40 mg Documented by: Prednisone (Prednisone 5 Mg Tab) 5 mg PO HS [facility] Stop: 05/02/20 21:01 Last Admin: 04/02/20 21:53 Dose: 5 mg Documented by: Pregabalin (Pregabalin 150 Mg Cap) 150 mg PO HS [facility] Stop: 05/02/20 21:01 Last Admin: 04/02/20 22:01 Dose: 150 mg Documented by: Sertraline HCl (Sertraline Hcl 100 Mg Tablet) 100 mg PO [facility] Stop: 05/02/20 21:01 Last Admin: 04/02/20 21:59 Dose: 100 mg Documented by: Sirolimus (Sirolimus 0.5 Mg Tablet) 4 mg PO [facility] Stop: 05/02/20 21:01 Last Admin: 04/02/20 21:55 Dose: 4 mg Documented by: Resident Activity Tracking Resident Involvement: Resident Care Provided Care Provided: Adult Hospital Medicine
[2020-04-03] MEDS ORDERED: INSULIN PROTOCOL GOAL RANGE ONE (07:09)
[2020-04-03] MEDS ORDERED: INSULIN REGULAR 250 UNITS in SODIUM CHLORIDE 0.9% 247.5 ML IV SCH (07:15)
[2020-04-03] MEDS ORDERED: INSULIN ASPART 100 UNITS/ML 3 ML PEN SC SCH (07:30)
[2020-04-03] MEDS: DOXYCYCLINE HYCLATE 50 MG CAP PO SCH ×2 (07:39→20:45)
[2020-04-03] MEDS: HEPARIN SOD 5,000 UNIT/0.5 ML VIAL SQ SCH ×2 (07:39→20:46)
--- NOTE | 2020-04-03 08:52 | Billing Data ---
Date of Service April 03, 2020 Coding Level of Care Code 61051 Subseq Hosp Care Lvl 3
--- NOTE | 2020-04-03 10:34 | Pharmacy Report ---
Pharmacy Glycemic Short Note 2 - Date of Service April 03, 2020 - Glycemic Short BSG Results (Last 24 hours): 04/02/20 04/03/20 04/03/20 17:35 00:51 03:57 Glucose 204 H POC Glucose 376 H* 328 H* 04/03/20 04/03/20 04:13 07:27 Glucose 298 H POC Glucose 92 OUTPATIENT ANTIDIABETIC REGIMEN: * Novolog insulin pump, provides 14 units basal per day, total daily insulin dose ~24units * A1c = 8.5% ASSESSMENT: * Type 1 diabetic admitted to ICU for acute resp failure felt to be secondary to fluid overload * His insulin pump has been disconnected and he has been converted to SQ basal / bolus regimen * Pharmacy has followed this patient in the past, however he was utilizing the Omnipod insulin system which he used to control his BSGs during the hospitalization * Glycemic control has improved over the last 24 hrs. Will continue Lantus - dose provided will be equal to total daily basal dose delivered by pump. Rapid activing Novolog dose will be based upon outpt insulin regimen as well as prior admission data PLAN FOR INPATIENT GLYCEMIC CONTROL: * Hold insulin pump * Basal insulin * Lantus 14 units SQ Q HS * Bolus insulin * NovoLog per scale ACHS or Q6hrs while NPO * Goal Range: Low 110 mg/dL - High 140 mg/dL * Correction Factor: 40 mg/dL/unit * Nutritional / Prandial insulin per carb ratio of 1 unit per 20 grams CHO consumed PLAN FOR DISCHARGE: * to be determined
--- NOTE | 2020-04-03 11:20 | XCELERA ---
[id number]\[email or web address]_[email or web address]\[id number]
--- NOTE | 2020-04-03 11:23 | Hospitalist Progress Note ---
Date of Service April 03, 2020 Assessment & Plan (1) Acute hypoxemic respiratory failure: 2nd to pulmonary edema/volume overload in setting of advanced kidney disease and diastolic dysfunction. Big culprit in hypervolemia is the advanced kidney disease in setting of renal transplant status. Resp failure resolved s/p aggressive diuresis & BIPAP overnight. Now stable in RA following diuresis. (2) Chronic kidney disease, stage IV (severe): Baseline Cr is about 3.5 to 4. He was volume overloaded clinically and radiographically at time of admission. Cr today 3.6. Appreciate Dr Samson's consultation. He recommends additional 80mg of lasix today - will give such. Repeat BMP am. Patient may need daily diuretics at discharge to maintain euvolemia. (3) Acute exacerbation of CHF (congestive heart failure): Acute/chronic diastolic CHF in setting of advanced CKD of his renal transplant. Decompensation MUCH improved. Will give additional 80mg IV lasix for further diuresis. BMP am; repeat exam am. Cont metoprolol 75mg HS. (4) Kidney transplant recipient: 2001. Continue prednisone 5mg daily. Continue sirolimus 4mg HS. Baseline Cr about 3.[address] Samson's consultation. Noted epogen injection today. (5) Diabetes mellitus type 1: On insulin pump. A1C 6.7% in 01/2020. A1c now >8%. Pump on hold; pharmacy providing glycemic management. As we approach d/c will transition back to pump. (6) S/P BKA (below knee amputation) unilateral: Left. (7) DIANE (obstructive sleep apnea): Records suggest he should be using CPAP but uncertain if he is compliant. Will discuss with patient. (8) HTN (hypertension): Continue metoprolol. BPs very high at presentation - likely due to volume overload - much improved today. (9) Dyslipidemia: Continue statin. (10) CAD in [place] artery: Initial troponin negative. 2nd troponin + --- likely myocardial demand ischemia in setting of volume overload/pulmonary edema. Doubt NSTEMI. Continue asa, statin, plavix, BB. (11) Gastroesophageal reflux: Continue PPI. (12) Gout: Continue allopurinol prophylaxis. no flares. (13) DVT prophylaxis: Heparin 5000 BID. Left message for patient's on her voicemail informing her of ICU admission, plan of care, etc at time of admission. d/c mateo move to telemetry unit from ICU today Admission and Anticipated Discharge Date Admission Date: April 02, 2020 Subjective patient feeling much better today BIPAP worn all night; now off and he is stable in room air cough resolved wheezing resolved orthopnea resolved ate good breakfast no chest pain tele wnl overnight Review of Systems Constitutional: no fever, no chills and no anorexia Cardiovascular: no chest pain and no orthopnea Gastrointestinal: no abdominal pain, no nausea and no vomiting Physical Exam Constitutional: no acute distress and no altered mental status looks MUCH better today ENMT: external ear and nose normal, oropharynx normal Respiratory: no respiratory distress Auscultation: + crackles; no wheezes Cardiovascular: Rate/Rhythm: regular rate and regular rhythm Heart Sounds: normal S1, normal S2 and + murmur (1-2/6 systolic) Vessels: + JVD (Improved), posterior tibial pulses present (Right leg) and dorsalis pedis pulses present Extremities: no edema (Resolved RLE) Gastrointestinal (Abdomen): normal bowel sounds, soft, nontender, no hepatosplenomegaly renal transplant RLQ palpable & nontender Musculoskeletal: left BKA Psychiatric: A+Ox3, euthymic affect Results & Data Results & Data ([facility]) Vital Signs (Past 12 Hours) Vital Signs Temp Pulse Pulse Resp BP Pulse Ox 04/03/20 09:00 37.1 C 87 16 98 04/03/20 08:47 37.1 C 89 28 H 138/80 95 04/03/20 08:00 37.0 C 87 23 90 04/03/20 07:47 37.0 C 87 25 H 139/86 92 04/03/20 07:35 37.1 C 87 23 131/76 95 04/03/20 07:15 86 81 18 96 04/03/20 07:00 37.1 C 83 18 99 04/03/20 05:23 87 19 96 04/03/20 02:14 94 H 20 95 04/03/20 02:12 94 H 20 95 04/03/20 02:00 37.3 C 95 H 22 95 04/03/20 01:47 37.3 C 97 H 22 118/68 94 04/03/20 01:30 37.3 C 97 H 22 96 04/03/20 01:00 37.3 C 98 H 23 97 04/03/20 00:47 37.3 C 99 H 23 119/70 95 04/03/20 00:30 37.3 C 100 H 25 H 93 04/03/20 00:00 37.3 C 100 H 24 95 04/02/20 23:46 37.3 C 101 H 24 160/89 H 93 04/02/20 23:30 37.3 C 101 H 26 H 95 Laboratory Results Laboratory Results - last 24 hr 04/02/20 04/02/20 04/02/20 17:35 17:35 17:35 WBC 11.08 H RBC 3.46 L Hgb 9.3 L Hct 29.0 L MCV 83.8 MCH 26.9 MCHC 32.1 RDW Std Deviation 52.1 H RDW Coeff of Michelle 17.1 H Plt Count 173 MPV 11.8 H Immature Gran % (Auto) 0.5 Neut % (Auto) 62.6 Lymph % (Auto) 29.3 [place] % (Auto) 5.1 Eos % (Auto) 2.3 Baso % (Auto) 0.2 Neut # (Auto) 6.93 H Lymph # (Auto) 3.25 [place] # (Auto) 0.56 Eos # (Auto) 0.26 Baso # (Auto) 0.02 Immature Gran # (Auto) 0.06 H Absolute Nucleated RBC Nucleated RBC % (auto) PT 10.9 INR 1.0 APTT 26.5 PTT Ratio 0.9 Sodium 141 Potassium 4.4 Chloride 110 H Carbon Dioxide 20 L Anion Gap 12.0 H BUN 91 H Creatinine 3.46 H Est Cr Clr Drug Dosing 23.7 Est GFR ( Amer) 23.6 Est GFR (Non-Af Amer) 20.3 BUN/Creatinine Ratio 26.2 H Glucose 204 H POC Glucose Estimat Average Glucose Hemoglobin A1c Lactate Calcium 8.3 L Phosphorus Magnesium 1.9 Total Bilirubin 0.3 AST 31 ALT 43 Alkaline Phosphatase 210 H CK-MB (CK-2) 12.1 H Troponin I < 0.015 NT-Pro-B Natriuret Pep 09556 H Total Protein 7.1 Albumin 3.3 L Globulin 3.8 Albumin/Globulin Ratio 0.9 Beta-Hydroxybutyric Acd 1.91 Procalcitonin TSH Nasal Screen MRSA (PCR) COVID-19 Eval Order SARS-CoV-2, RNA, NAAT 04/02/20 04/02/20 04/02/20 18:23 18:23 20:05 WBC RBC Hgb Hct MCV MCH MCHC RDW Std Deviation RDW Coeff of Michelle Plt Count MPV Immature Gran % (Auto) Neut % (Auto) Lymph % (Auto) [place] % (Auto) Eos % (Auto) Baso % (Auto) Neut # (Auto) Lymph # (Auto) [place] # (Auto) Eos # (Auto) Baso # (Auto) Immature Gran # (Auto) Absolute Nucleated RBC Nucleated RBC % (auto) PT INR APTT PTT Ratio Sodium Potassium Chloride Carbon Dioxide Anion Gap BUN Creatinine Est Cr Clr Drug Dosing Est GFR ( Amer) Est GFR (Non-Af Amer) BUN/Creatinine Ratio Glucose POC Glucose Estimat Average Glucose Hemoglobin A1c Lactate 1.0 Calcium Phosphorus Magnesium Total Bilirubin AST ALT Alkaline Phosphatase CK-MB (CK-2) Troponin I NT-Pro-B Natriuret Pep Total Protein Albumin Globulin Albumin/Globulin Ratio Beta-Hydroxybutyric Acd Procalcitonin TSH Nasal Screen MRSA (PCR) COVID-19 Eval [facility] SARS-CoV-2, RNA, NAAT NEGATIVE 04/02/20 04/02/20 04/02/20 20:05 22:57 Unknown WBC RBC Hgb Hct MCV MCH MCHC RDW Std Deviation RDW Coeff of Michelle Plt Count MPV Immature Gran % (Auto) Neut % (Auto) Lymph % (Auto) [place] % (Auto) Eos % (Auto) Baso % (Auto) Neut # (Auto) Lymph # (Auto) [place] # (Auto) Eos # (Auto) Baso # (Auto) Immature Gran # (Auto) Absolute Nucleated RBC Nucleated RBC % (auto) PT INR APTT PTT Ratio Sodium Potassium Chloride Carbon Dioxide Anion Gap BUN Creatinine Est Cr Clr Drug Dosing Est GFR ( Amer) Est GFR (Non-Af Amer) BUN/Creatinine Ratio Glucose POC Glucose Estimat Average Glucose Hemoglobin A1c Lactate Calcium Phosphorus Magnesium Total Bilirubin AST ALT Alkaline Phosphatase CK-MB (CK-2) Troponin I 0.115 H* NT-Pro-B Natriuret Pep Total Protein Albumin Globulin Albumin/Globulin Ratio Beta-Hydroxybutyric Acd Procalcitonin 0.16 TSH Nasal Screen MRSA (PCR) Negative COVID-19 Eval Order SARS-CoV-2, RNA, NAAT 04/03/20 04/03/20 04/03/20 00:51 03:57 04:13 WBC RBC Hgb Hct MCV MCH MCHC RDW Std Deviation RDW Coeff of Michelle Plt Count MPV Immature Gran % (Auto) Neut % (Auto) Lymph % (Auto) [place] % (Auto) Eos % (Auto) Baso % (Auto) Neut # (Auto) Lymph # (Auto) [place] # (Auto) Eos # (Auto) Baso # (Auto) Immature Gran # (Auto) Absolute Nucleated RBC Nucleated RBC % (auto) PT INR APTT PTT Ratio Sodium Potassium Chloride Carbon Dioxide Anion Gap BUN Creatinine Est Cr Clr Drug Dosing Est GFR ( Amer) Est GFR (Non-Af Amer) BUN/Creatinine Ratio Glucose POC Glucose 376 H* 328 H* Estimat Average Glucose 197 Hemoglobin A1c 8.5 H Lactate Calcium Phosphorus Magnesium Total Bilirubin AST ALT Alkaline Phosphatase CK-MB (CK-2) Troponin I NT-Pro-B Natriuret Pep Total Protein Albumin Globulin Albumin/Globulin Ratio Beta-Hydroxybutyric Acd Procalcitonin TSH Nasal Screen MRSA (PCR) COVID-19 Eval Order SARS-CoV-2, RNA, NAAT 04/03/20 04/03/20 04/03/20 04:13 04:13 04:13 WBC 10.73 RBC 2.97 L Hgb 8.0 L Hct 24.9 L MCV 83.8 MCH 26.9 MCHC 32.1 RDW Std Deviation 52.3 H RDW Coeff of Michelle 17.0 H Plt Count 159 MPV 12.6 H Immature Gran % (Auto) 0.3 Neut % (Auto) 80.7 Lymph % (Auto) 13.8 [place] % (Auto) 4.8 Eos % (Auto) 0.3 Baso % (Auto) 0.1 Neut # (Auto) 8.66 H Lymph # (Auto) 1.48 [place] # (Auto) 0.52 Eos # (Auto) 0.03 Baso # (Auto) 0.01 Immature Gran # (Auto) 0.03 H Absolute Nucleated RBC 0.02 H Nucleated RBC % (auto) 0.2 PT INR APTT PTT Ratio Sodium 141 Potassium 4.4 Chloride 112 H Carbon Dioxide 19 L Anion Gap 10.0 BUN 104 H Creatinine 3.68 H Est Cr Clr Drug Dosing 24.5 Est GFR ( Amer) 21.9 Est GFR (Non-Af Amer) 18.9 BUN/Creatinine Ratio 28.2 H Glucose 298 H POC Glucose Estimat Average Glucose Hemoglobin A1c Lactate Calcium 8.1 L Phosphorus 4.4 Magnesium 1.9 Total Bilirubin AST ALT Alkaline Phosphatase CK-MB (CK-2) Troponin I 0.081 H* NT-Pro-B Natriuret Pep Total Protein Albumin Globulin Albumin/Globulin Ratio Beta-Hydroxybutyric Acd Procalcitonin TSH 0.829 Nasal Screen MRSA (PCR) COVID-19 Eval Order SARS-CoV-2, RNA, NAAT 04/03/20 07:27 WBC RBC Hgb Hct MCV MCH MCHC RDW Std Deviation RDW Coeff of Michelle Plt Count MPV Immature Gran % (Auto) Neut % (Auto) Lymph % (Auto) [place] % (Auto) Eos % (Auto) Baso % (Auto) Neut # (Auto) Lymph # (Auto) [place] # (Auto) Eos # (Auto) Baso # (Auto) Immature Gran # (Auto) Absolute Nucleated RBC Nucleated RBC % (auto) PT INR APTT PTT Ratio Sodium Potassium Chloride Carbon Dioxide Anion Gap BUN Creatinine Est Cr Clr Drug Dosing Est GFR ( Amer) Est GFR (Non-Af Amer) BUN/Creatinine Ratio Glucose POC Glucose 92 Estimat Average Glucose Hemoglobin A1c Lactate Calcium Phosphorus Magnesium Total Bilirubin AST ALT Alkaline Phosphatase CK-MB (CK-2) Troponin I NT-Pro-B Natriuret Pep Total Protein Albumin Globulin Albumin/Globulin Ratio Beta-Hydroxybutyric Acd Procalcitonin TSH Nasal Screen MRSA (PCR) COVID-19 Eval Order SARS-CoV-2, RNA, NAAT PG Care Time/CCT Total # of Minutes Spent Total Time Spent with Patient: Total time spent is greater than 50% in coordination of care (as documented) at patient's floor/unit and/or counseling patient: Coding Level of Care Code 97711 Subseq Hosp Care Lvl 2 Diagnoses Acute hypoxemic respiratory failure J96.01 Chronic kidney disease, stage IV (severe) N18.4 Acute exacerbation of CHF (congestive heart failure) I50.9 Heart failure type: unspecified Kidney transplant recipient Z94.0 Diabetes mellitus type 1 E10.69 Diabetes mellitus complication status: with other specified complication S/P BKA (below knee amputation) unilateral Z89.519 DIANE (obstructive sleep apnea) G47.33 HTN (hypertension) I10 Dyslipidemia E78.5 CAD in [place] artery I25.10 Gastroesophageal reflux K21.9 Esophagitis presence: esophagitis presence not specified Gout M10.9 Chronicity: unspecified Gout etiology: unspecified cause Gout site: unspecified site DVT prophylaxis Z29.9 (1) Acute exacerbation of CHF (congestive heart failure) Heart failure type: unspecified Qualified Code(s): I50.9 - Heart failure, unspecified (2) Gout Chronicity: unspecified Gout etiology: unspecified cause Gout site: unspecified site Qualified Code(s): M10.9 - Gout, unspecified (3) Diabetes mellitus type 1 Diabetes mellitus complication status: with other specified complication Qualified Code(s): E10.69 - Type 1 diabetes mellitus with other specified complication (4) Gastroesophageal reflux Esophagitis presence: esophagitis presence not specified Qualified Code(s): K21.9 - Gastro-esophageal reflux disease without esophagitis
--- NOTE | 2020-04-03 11:47 | Nephrology Consultation ---
Date of Consultation April 03, 2020 Assessment & Plan (1) Kidney transplant recipient: (2) Chronic renal insufficiency: (3) Volume overload: Mr. Dalton is a 44-year-old gentleman with a history of poorly controlled type 1 diabetes mellitus. He has had a kidney transplant for 19 years. He has chronic renal insufficiency. He has a history of hypertension. He has had issues with maintaining euvolemia for the past several years. He presents now with significant volume overload and evidence of pulmonary edema. He had some associated chest discomfort likely the result of his heart failure. He has a minimal elevation of his troponin which is likely a supply and demand issue. His creatinine appears to be reasonably stable and he has responded to diuretics. However, his BUN is disproportionate to his creatinine. That may be the result of his episode of congestive heart failure. At the current time, 1 certainly cannot blame it on volume depletion. Given the worsening of his anemia which may simply be due to his chronic renal failure and the disproportionate increase in his BUN, GI bleeding should be ruled out. Stool should be checked for occult blood and he should have his serum ferritin and transferrin saturation checked. Additionally, from the standpoint of his diuresis I would use furosemide 80 mg once or twice a day until he is euvolemic. Obviously, he is improved since admission but still has some basilar rales on the right side. It will be interesting to see if continued diuresis leads to a fall and his BUN. We should be reinstituting his Aranesp. During the hospitalization, however, he can be treated with Procrit and I would recommend starting at a dose of 40,000 units today. The decision about iron supplements can be based on his transferrin saturation and serum ferritin. I have no other immediate recommendations. I will continue to follow him with you. Obviously, he has improved since admission. (4) CHF exacerbation: (5) Type 1 diabetes mellitus: (6) Anemia: History of Present Illness Attending Physician: Mr. Dalton is a 44-year-old gentleman well-known to me. He has a longstanding history of type 1 diabetes mellitus. Over the years, he was quite poorly controlled. His diabetes was complicated by retinopathy for which she has undergone previous laser photocoagulation procedures as well as a vitrectomy done several years ago. More recently, he has had only problems of background diabetic retinopathy but no major hemorrhages or visual loss. He also has a history of a peripheral neuropathy which contributed to the development of an ulcer on his left heel about 3 years ago. 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 He has some evidence of loss of protective sensation in his right leg and foot. He has been rehabilitated from his BK amputation and does have a prosthesis. He is back to work on a full-time basis. Additionally, he has a history of chronic renal failure associated with diabetic nephropathy. In October 2000, he developed symptomatic uremia and volume overload. He was begun on maintenance dialysis at that time. In March 2001, he received a living related donor transplant from his mother. Initially, his renal function was relatively stable with a serum creatinine in the range of about 1.6 to 1.8 mg/Jacinto. He had an acute rejection episode in 2002 that was treated with steroids. His immunosuppression was changed from tacrolimus and mycophenolate mofetil to a combination of tacrolimus, sirolimus and prednisone. His renal function is very slowly declined since that time. Most recently, his serum creatinine has been stable in the range of about 3.5 mg/Jacinto. Complications of his chronic renal disease include intermittent problems with hypertension and vo lume overload. However, he has also had periods of volume depletion associated with the aggressive use of diuretics. He has a secondary anemia which has been controlled with Aranesp although he has not had a dose recently after his hemoglobin climbed to in excess of 11. His serum phosphate appears to be well controlled with phosphate binders. No on calcitriol 0.25 mcg daily management of associated metabolic bone disease. Additionally, in about 2015, he developed an episode of chest discomfort. He had an increase in cardiac isoenzymes and changes consistent with a lateral wall ST segment elevation [place]. He was taken to [facility] by Dr. Jurado. Multiple vessels were involved. The most significant vessel at that time was the left anterior descending artery. He had an angioplasty and the deployment of a drug- eluting stent at that time. Since then, he has been on aspirin and clopidogrel. His diabetes has been poorly controlled over the years, as noted above. Recently however he has had a [employer] continuous glucose monitor and his compliance has improved. In January 2020, his hemoglobin A1c was 6.7. Prior to that it seemed to be stable in the mid 8 range although he has had periods where his hemoglobin A1c exceeded 10. He has an insulin pump and has apparently been faithful to its use. He also has a history of obstructive sleep apnea that was diagnosed about 3 to 4 years ago. He had used CPAP in the past but more recently has not been using it. He has not followed with Dr. BARAHONA for quite some time. Hypertension has been a problem for years. For the most part, he has been controlled. Most recently, he has been controlled with metoprolol succinate as well as the use of diuretics. He had been on quinapril in the past but that has been discontinued. He has also used metolazone in the past but that too has been discontinued, at least for now. He also has a history of hypercholesterolemia. That is been controlled with atorvastatin 80 mg taken at bedtime. He has a history of gout. That is been controlled with allopurinol. He has had no symptoms of gouty arthritis since that time. He has a history of having bilateral total hip arthroplasties done by Dr. Bill Lima. 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 He was admitted to the hospital yesterday, April 02. He has been working at his job and had actually done over time. However, he noted that when he was going up stairs or climbing a ladder he became significantly dyspneic. Last, he finished his shift. He went home and took a nap. He said that he was laying on his left side and apparently was not awakened by being short of breath. When he did wake up, he walked from his bedroom to the kitchen and became extremely short of breath and was also experiencing some chest pressure. For that reason, he came to the emergency room. His evaluation there was consistent with dramatic volume overload and pulmonary edema. He has been treated with Lasix. Overnight, he diuresed significantly and was net minus about 1.6 L. His shortness of breath and chest pressure have resolved. Troponins have been minimally elevated. An echocardiogram shows evidence of left ventricular hypertrophy. He had no wall motion abnormalities. He does have mild aortic stenosis. At the time of this admission, his serum creatinine has been in the mid 3 range. His BUN is significantly disproportionately elevated. His anemia is worse with a hemoglobin of 8.0 this morning. He denies having any hematemesis or melena. He has had no previous GI issues. He does admit to certain degrees of dietary indiscretion. As an example, for his dinner on April 01, he had Nachos. He also had a Caesar salad with bottle dressing for lunch that day. He has asked his whether or not he appeared to be gaining weight since he did notice some degree of abdominal distention which he says is now better. He also began to notice a trace of edema on April 01. However, he has been denying PND or orthopnea or significant dyspnea with exertion up until April 02. His current medications are as listed on his admission note. His immunosuppression is with sirolimus 4 mg daily taken at bedtime and prednisone 5 mg daily. His hypertension is managed with furosemide 80 mg on alternate days as well as metoprolol succinate 75 mg daily. His other medications are as listed. His review of systems is unremarkable. Specifically, he has had no lower urinary tract symptoms or problems. He has had no GI issues including no problems of hematemesis or melena. He does, however, have a history of dyspepsia for which he uses pantoprazole 40 mg taken at bedtime. Allergies Allergy/AdvReac Type Severity Reaction Status Date / Time PORK INSULIN Allergy Unknown Hives Uncoded 04/02/20 17:50 Home Medications Medication Instructions Recorded Confirmed Type glucagon (human recombinant) 1 mg 1 mg IM DIRECTED PRN 10/05/18 04/02/20 History solution for injection lancets 33 gauge #100 ea 10/05/18 03/20/20 History Dexcom G6 Dobby Loom Weaver #1 ea NS 11/30/18 03/20/20 Rx insulin syringe-needle U-100 0.5 #100 ea 09/09/19 03/20/20 Rx mL 31 gauge x 5/16" metoprolol succinate 75 mg PO HS 10/10/19 04/02/20 History darbepoetin sarah in polysorbat 200 200 mcg SUBCUT Q14D ml 11/11/19 04/02/20 History mcg/0.4 mL in polysorbate injection syringe Dexcom G6 Transmitter #1 ea NS 11/25/19 03/20/20 Rx Dexcom G6 Sensor #9 ea NS 12/01/19 03/20/20 Rx allopurinol 300 mg tablet 300 mg PO HS #90 tab 03/30/20 04/02/20 Rx aspirin 81 mg tablet,delayed 81 mg PO HS #30 tab 03/30/20 04/02/20 Rx release atorvastatin 80 mg tablet 80 mg PO HS #90 tab 03/30/20 04/02/20 Rx clindamycin phosphate 1 % topical 1 applic TOPICAL BID #60 ml 03/30/20 04/02/20 Rx solution doxycycline hyclate 50 mg capsule 50 mg PO BID #180 cap 03/30/20 04/02/20 Rx furosemide 40 mg tablet 80 mg PO Q OTHER DAY #60 tab 03/30/20 04/02/20 Rx pantoprazole 40 mg tablet,delayed 40 mg PO HS #90 tab 03/30/20 04/02/20 Rx release prednisone 5 mg tablet 5 mg PO HS #90 tab 03/30/20 04/02/20 Rx pregabalin 75 mg capsule 150 mg PO HS #90 cap 03/30/20 04/02/20 Rx sertraline 50 mg tablet 100 mg PO HS #90 tab 03/30/20 04/02/20 Rx sirolimus 2 mg tablet 4 mg PO HS #180 tab 03/30/20 04/02/20 Rx calcitriol 0.25 mcg PO HS 04/02/20 04/02/20 History clopidogrel [Plavix] 75 mg PO HS 04/02/20 04/02/20 History insulin aspart U-100 [Novolog 50 unit SUBCUT DAILY 04/02/20 04/02/20 History U-100 Insulin aspart] Patient History Medical History (Updated 04/02/20 @ 21:13 by Kobe Espitia) Anxiety CAD (coronary artery disease) Chronic renal insufficiency Deep vein thrombosis ARM (10 YEARS AGO) AT [facility] Depression Diabetes mellitus type 1 INSULIN PUMP Fistula LEFT ARM (NON FUNCTIONING) GERD (gastroesophageal reflux disease) Gout Hyperlipidemia Hypertension Mitral regurgitation MILD-MOD Myocardial Infarction 2016 Peripheral neuropathy Sensory problems with limbs Sleep apnea CPAP Surgical History (Updated 04/02/20 @ 21:11 by Kobe Espitia) H/O eye surgery LEFT/RT LASER SURGERY History of below knee amputation LEFT REVISION (5 TOTAL) History of cardiac cath 2016 - [place] - [facility] - 2 STENTS - FOLLOWS W/ DR. JURADO History of heart artery stent 2016 (2 STENTS PLACED) AT [facility] History of right hip replacement 03/17/2019 [facility] Kidney transplant recipient 2001 Family History Grandfather Family history of diabetes mellitus Other No family history of adverse response to anesthesia Social History Smoking Status: Never smoker Second Hand Exposure: No; Hx Alcohol Use: Yes Alcohol type: beer Alcohol Intake Frequency: 2-3 x/Week Hx Substance Use: No Preferred Language: [place] Communication Ability: Effective Home Based Assistant Required: No Beliefs That Will Affect Care: None marital status: Current Living Situation: Spouse current occupational status: employed 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 Dalton appears a chronically ill young man of about his stated age of 44 or perhaps a bit younger. His vital signs showed a blood pressure of 138/80 with a pulse of 87 and regular. Respiratory rate was 16 with a pulse ox of 98% on room air. He is afebrile. His skin shows a sallow complexion. He has multiple tattoos. His skin turgor was normal. There is a left below the knee amputation. His stump appears clean and the incision healed. He has a right lower quadrant scar from his kidney transplant. He has scars over both hips from hip replacement. He has a left arm AV fistula. He has no palpable lymphadenopathy. His head is grossly normal. Eyes are grossly normal. The ocular fundi were not examined. He does have a history of diabetic retinopathy as noted above. Ears, nose, mouth and throat are all unremarkable. His oral mucous membranes are moist. His neck is supple. I see no jugular venous distention. He has no carotid bruit or thyromegaly. His chest is clear to auscultation except for rales at the right base about one quarter of the way up the right chest. Cardiac exam shows a regular rhythm. S1 and S2 seem normal. He has a grade 2/6 to 3/6 systolic murmur at the base radiating toward the neck. His abdomen is nontender. There is a questionable fluid wave. He has no organomegaly or mass. His kidney transplant is palpable in the right lower quadrant of his abdomen. It is nontender. I do not hear a bruit over the graft. Genital and rectal exams were not done. Extremities show a left below the knee amputation. He has no edema of the right leg. He has no cyanosis or clubbing. The tip of his left fifth finger is surgically absent. His neurologic exam shows no lateralizing changes. He has a loss of protective sensation in the right foot compared to the right knee. Results & Data ([facility]) Vital Signs (Past 12 Hours) Vital Signs Temp Pulse Pulse Resp BP Pulse Ox 04/03/20 09:00 37.1 C 87 16 98 04/03/20 08:47 37.1 C 89 28 H 138/80 95 04/03/20 08:00 37.0 C 87 23 90 04/03/20 07:47 37.0 C 87 25 H 139/86 92 04/03/20 07:35 37.1 C 87 23 131/76 95 04/03/20 07:15 86 81 18 96 04/03/20 07:00 37.1 C 83 18 99 04/03/20 05:23 87 19 96 04/03/20 02:14 94 H 20 95 04/03/20 02:12 94 H 20 95 04/03/20 02:00 37.3 C 95 H 22 95 04/03/20 01:47 37.3 C 97 H 22 118/68 94 04/03/20 01:30 37.3 C 97 H 22 96 04/03/20 01:00 37.3 C 98 H 23 97 04/03/20 00:47 37.3 C 99 H 23 119/70 95 04/03/20 00:30 37.3 C 100 H 25 H 93 04/03/20 00:00 37.3 C 100 H 24 95 04/02/20 23:46 37.3 C 101 H 24 160/89 H 93 Laboratory Results Laboratory Results - last 24 hr 04/02/20 04/02/20 04/02/20 17:35 17:35 17:35 WBC 11.08 H RBC 3.46 L Hgb 9.3 L Hct 29.0 L MCV 83.8 MCH 26.9 MCHC 32.1 RDW Std Deviation 52.1 H RDW Coeff of Michelle 17.1 H Plt Count 173 MPV 11.8 H Immature Gran % (Auto) 0.5 Neut % (Auto) 62.6 Lymph % (Auto) 29.3 [place] % (Auto) 5.1 Eos % (Auto) 2.3 Baso % (Auto) 0.2 Neut # (Auto) 6.93 H Lymph # (Auto) 3.25 [place] # (Auto) 0.56 Eos # (Auto) 0.26 Baso # (Auto) 0.02 Immature Gran # (Auto) 0.06 H Absolute Nucleated RBC Nucleated RBC % (auto) PT 10.9 INR 1.0 APTT 26.5 PTT Ratio 0.9 Sodium 141 Potassium 4.4 Chloride 110 H Carbon Dioxide 20 L Anion Gap 12.0 H BUN 91 H Creatinine 3.46 H Est Cr Clr Drug Dosing 23.7 Est GFR ( Amer) 23.6 Est GFR (Non-Af Amer) 20.3 BUN/Creatinine Ratio 26.2 H Glucose 204 H POC Glucose Estimat Average Glucose Hemoglobin A1c Lactate Calcium 8.3 L Phosphorus Magnesium 1.9 Total Bilirubin 0.3 AST 31 ALT 43 Alkaline Phosphatase 210 H CK-MB (CK-2) 12.1 H Troponin I < 0.015 NT-Pro-B Natriuret Pep 31878 H Total Protein 7.1 Albumin 3.3 L Globulin 3.8 Albumin/Globulin Ratio 0.9 Beta-Hydroxybutyric Acd 1.91 Procalcitonin TSH Nasal Screen MRSA (PCR) COVID-19 Eval Order SARS-CoV-2, RNA, NAAT 04/02/20 04/02/20 04/02/20 18:23 18:23 20:05 WBC RBC Hgb Hct MCV MCH MCHC RDW Std Deviation RDW Coeff of Michelle Plt Count MPV Immature Gran % (Auto) Neut % (Auto) Lymph % (Auto) [place] % (Auto) Eos % (Auto) Baso % (Auto) Neut # (Auto) Lymph # (Auto) [place] # (Auto) Eos # (Auto) Baso # (Auto) Immature Gran # (Auto) Absolute Nucleated RBC Nucleated RBC % (auto) PT INR APTT PTT Ratio Sodium Potassium Chloride Carbon Dioxide Anion Gap BUN Creatinine Est Cr Clr Drug Dosing Est GFR ( Amer) Est GFR (Non-Af Amer) BUN/Creatinine Ratio Glucose POC Glucose Estimat Average Glucose Hemoglobin A1c Lactate 1.0 Calcium Phosphorus Magnesium Total Bilirubin AST ALT Alkaline Phosphatase CK-MB (CK-2) Troponin I NT-Pro-B Natriuret Pep Total Protein Albumin Globulin Albumin/Globulin Ratio Beta-Hydroxybutyric Acd Procalcitonin TSH Nasal Screen MRSA (PCR) COVID-19 Eval [facility] SARS-CoV-2, RNA, NAAT NEGATIVE 04/02/20 04/02/20 04/02/20 20:05 22:57 Unknown WBC RBC Hgb Hct MCV MCH MCHC RDW Std Deviation RDW Coeff of Michelle Plt Count MPV Immature Gran % (Auto) Neut % (Auto) Lymph % (Auto) [place] % (Auto) Eos % (Auto) Baso % (Auto) Neut # (Auto) Lymph # (Auto) [place] # (Auto) Eos # (Auto) Baso # (Auto) Immature Gran # (Auto) Absolute Nucleated RBC Nucleated RBC % (auto) PT INR APTT PTT Ratio Sodium Potassium Chloride Carbon Dioxide Anion Gap BUN Creatinine Est Cr Clr Drug Dosing Est GFR ( Amer) Est GFR (Non-Af Amer) BUN/Creatinine Ratio Glucose POC Glucose Estimat Average Glucose Hemoglobin A1c Lactate Calcium Phosphorus Magnesium Total Bilirubin AST ALT Alkaline Phosphatase CK-MB (CK-2) Troponin I 0.115 H* NT-Pro-B Natriuret Pep Total Protein Albumin Globulin Albumin/Globulin Ratio Beta-Hydroxybutyric Acd Procalcitonin 0.16 TSH Nasal Screen MRSA (PCR) Negative COVID-19 Eval Order SARS-CoV-2, RNA, NAAT 04/03/20 04/03/20 04/03/20 00:51 03:57 04:13 WBC RBC Hgb Hct MCV MCH MCHC RDW Std Deviation RDW Coeff of Michelle Plt Count MPV Immature Gran % (Auto) Neut % (Auto) Lymph % (Auto) [place] % (Auto) Eos % (Auto) Baso % (Auto) Neut # (Auto) Lymph # (Auto) [place] # (Auto) Eos # (Auto) Baso # (Auto) Immature Gran # (Auto) Absolute Nucleated RBC Nucleated RBC % (auto) PT INR APTT PTT Ratio Sodium Potassium Chloride Carbon Dioxide Anion Gap BUN Creatinine Est Cr Clr Drug Dosing Est GFR ( Amer) Est GFR (Non-Af Amer) BUN/Creatinine Ratio Glucose POC Glucose 376 H* 328 H* Estimat Average Glucose 197 Hemoglobin A1c 8.5 H Lactate Calcium Phosphorus Magnesium Total Bilirubin AST ALT Alkaline Phosphatase CK-MB (CK-2) Troponin I NT-Pro-B Natriuret Pep Total Protein Albumin Globulin Albumin/Globulin Ratio Beta-Hydroxybutyric Acd Procalcitonin TSH Nasal Screen MRSA (PCR) COVID-19 Eval Order SARS-CoV-2, RNA, NAAT 04/03/20 04/03/20 04/03/20 04:13 04:13 04:13 WBC 10.73 RBC 2.97 L Hgb 8.0 L Hct 24.9 L MCV 83.8 MCH 26.9 MCHC 32.1 RDW Std Deviation 52.3 H RDW Coeff of Michelle 17.0 H Plt Count 159 MPV 12.6 H Immature Gran % (Auto) 0.3 Neut % (Auto) 80.7 Lymph % (Auto) 13.8 [place] % (Auto) 4.8 Eos % (Auto) 0.3 Baso % (Auto) 0.1 Neut # (Auto) 8.66 H Lymph # (Auto) 1.48 [place] # (Auto) 0.52 Eos # (Auto) 0.03 Baso # (Auto) 0.01 Immature Gran # (Auto) 0.03 H Absolute Nucleated RBC 0.02 H Nucleated RBC % (auto) 0.2 PT INR APTT PTT Ratio Sodium 141 Potassium 4.4 Chloride 112 H Carbon Dioxide 19 L Anion Gap 10.0 BUN 104 H Creatinine 3.68 H Est Cr Clr Drug Dosing 24.5 Est GFR ( Amer) 21.9 Est GFR (Non-Af Amer) 18.9 BUN/Creatinine Ratio 28.2 H Glucose 298 H POC Glucose Estimat Average Glucose Hemoglobin A1c Lactate Calcium 8.1 L Phosphorus 4.4 Magnesium 1.9 Total Bilirubin AST ALT Alkaline Phosphatase CK-MB (CK-2) Troponin I 0.081 H* NT-Pro-B Natriuret Pep Total Protein Albumin Globulin Albumin/Globulin Ratio Beta-Hydroxybutyric Acd Procalcitonin TSH 0.829 Nasal Screen MRSA (PCR) COVID-19 Eval Order SARS-CoV-2, RNA, NAAT 04/03/20 07:27 WBC RBC Hgb Hct MCV MCH MCHC RDW Std Deviation RDW Coeff of Michelle Plt Count MPV Immature Gran % (Auto) Neut % (Auto) Lymph % (Auto) [place] % (Auto) Eos % (Auto) Baso % (Auto) Neut # (Auto) Lymph # (Auto) [place] # (Auto) Eos # (Auto) Baso # (Auto) Immature Gran # (Auto) Absolute Nucleated RBC Nucleated RBC % (auto) PT INR APTT PTT Ratio Sodium Potassium Chloride Carbon Dioxide Anion Gap BUN Creatinine Est Cr Clr Drug Dosing Est GFR ( Amer) Est GFR (Non-Af Amer) BUN/Creatinine Ratio Glucose POC Glucose 92 Estimat Average Glucose Hemoglobin A1c Lactate Calcium Phosphorus Magnesium Total Bilirubin AST ALT Alkaline Phosphatase CK-MB (CK-2) Troponin I NT-Pro-B Natriuret Pep Total Protein Albumin Globulin Albumin/Globulin Ratio Beta-Hydroxybutyric Acd Procalcitonin TSH Nasal Screen MRSA (PCR) COVID-19 Eval Order SARS-CoV-2, RNA, NAAT PG Care Time/CCT Total # of Minutes Spent Total Time Spent with Patient: Total time spent is greater than 50% in coordination of care (as documented) at patient's floor/unit and/or counseling patient: 75 Coding Level of Care Code 25977 Inpt Consult Level 5 Diagnoses Kidney transplant recipient Z94.0 Chronic renal insufficiency N18.9 Volume overload E87.70 Hypervolemia type: unspecified CHF exacerbation I50.9 Heart failure type: unspecified Type 1 diabetes mellitus E10.9 Anemia D64.89 Anemia type: other cause Other causes of anemia: other cause, not classified (1) Volume overload Hypervolemia type: unspecified Qualified Code(s): E87.70 - Fluid overload, unspecified (2) CHF exacerbation Heart failure type: unspecified Qualified Code(s): I50.9 - Heart failure, unspecified (3) Anemia Anemia type: other cause Other causes of anemia: other cause, not classified Qualified Code(s): D64.89 - Other specified anemias
[2020-04-03] MEDS ORDERED: EPOETIN ALFA 40,000 UNITS/ML VIAL SQ SCH (12:15)
[2020-04-03 12:52] LABS: Ferritin 119.7 ng/ml (8-388)
--- NOTE | 2020-04-03 13:22 | Electrocardiogram Report ---
Test Reason : Blood Pressure : / mmHG Vent. Rate : 112 BPM Atrial Rate : 112 BPM P-R Int : 172 ms QRS Dur : 082 ms QT Int : 306 ms P-R-T Axes : 063 050 118 degrees QTc Int : 417 ms Poor data quality, interpretation may be adversely affected Sinus tachycardia Left atrial enlargement Anteroseptal infarct (cited on or before 02-DEC-2019) Abnormal ECG When compared with ECG of 02-DEC-2019 07:24, Non-specific change in ST segment in Lateral leads T wave inversion now evident in Lateral leads Confirmed by Soto Luna ([id number]) on 04/03/2020 1:21:34 PM Referred By: REFERRED SELF Confirmed By:Soto Luan
[2020-04-03] MEDS ORDERED: FUROSEMIDE 80 MG in SYRINGE 0 ML IV ONE (19:45)
[2020-04-03] MEDS: PANTOprazole 40 MG TAB PO SCH (20:45)
[2020-04-03] MEDS: METOPROLOL SUCC 50MG EXT REL TAB PO SCH (20:45)
[2020-04-03] MEDS: allopurinoL 300 MG TAB PO SCH (20:45)
[2020-04-03] MEDS: CALCITRIOL 0.25 MCG CAPSULE PO SCH (20:45)
[2020-04-03] MEDS: SIROLIMUS 0.5 MG TABLET PO SCH (20:45)
[2020-04-03] MEDS: CLOPIDOGREL BISULFATE 75 MG TAB PO SCH (20:46)
[2020-04-03] MEDS: ASPIRIN 81 MG ECTAB PO SCH (20:46)
[2020-04-03] MEDS: SERTRALINE HCL 100 MG TABLET PO SCH (20:46)
[2020-04-03] MEDS: predniSONE 5 MG TAB PO SCH (20:46)
[2020-04-03] MEDS: ATORVASTATIN 40 MG TAB PO SCH (20:46)
[2020-04-03] MEDS: PREGABALIN 150 MG CAP PO SCH (20:52)
[2020-04-03] MEDS ORDERED: INSULIN GLARGINE SOLOSTAR 100 UNITS/ML 3 ML PEN SC SCH (21:00)
[2020-04-04] MEDS: INSULIN ASPART 100 UNITS/ML 3 ML PEN SC SCH ×4 (00:34→12:14)
[2020-04-04 06:48] LABS: Basophils # (auto) 0.02 K/uL (0-0.2); Basophils % (auto) 0.3 %; Eosinophils # (auto) 0.14 K/uL (0-0.5); Eosinophils % (auto) 1.9 %; Hematocrit (blood only) 24.8 % (42-52); Hemoglobin 8.1 g/dL (14.0-18.0); Immature Granulocytes # (auto) 0.03 K/uL (0.00-0.02); Immature Granulocytes % (auto) 0.4 %; Lymphocytes # (auto) 2.18 K/uL (1.2-3.4); Lymphocytes % (auto) 30.1 %; Mean Corpuscular Hemoglobin 26.4 pg (25-34); Mean Corpuscular Hgb Conc 32.7 g/dL (32-36); Mean Corpuscular Volume 80.8 fL (80-100); Mean Platelet Volume 12.7 fL (7.4-10.4); Monocytes # (auto) 0.64 K/uL (0.11-0.59); Monocytes % (auto) 8.8 %; Neutrophils # (auto) 4.24 K/uL (1.4-6.5); Neutrophils % (auto) 58.5 %; Nucleated RBC # (auto) 0.02 K/uL (0-0); Nucleated RBC % (auto) 0.3 %; Platelet Count 165 K/uL (130-400); RDW Coefficient of Variation 16.8 % (11.5-14.5); Red Blood Count 3.07 M/uL (4.7-6.1); White Blood Count 7.25 K/uL (4.8-10.8)
[2020-04-04 07:23] LABS: BUN Creatinine Ratio 30.6 (10-20); Calcium 8.5 mg/dl (8.5-10.1); Creatinine Clr Calc Pharmacy 22.9 ml/min; Est GFR (African American) 22.6; Est GFR (Non-African American) 19.5
[2020-04-04] MEDS: HEPARIN SOD 5,000 UNIT/0.5 ML VIAL SQ SCH (07:27)
[2020-04-04] MEDS: DOXYCYCLINE HYCLATE 50 MG CAP PO SCH (07:27)
[2020-04-04 08:05] LABS: Folate (Folic Acid) 16.7 ng/ml (>5.38)
--- NOTE | 2020-04-04 09:50 | Pharmacy Report ---
Pharmacy Glycemic Short Note 2 - Date of Service April 04, 2020 - Glycemic Short BSG Results (Last 24 hours): 04/03/20 04/03/20 04/03/20 12:05 16:44 20:19 Glucose POC Glucose 86 249 H 200 H 04/03/20 04/04/20 04/04/20 23:59 04:30 06:20 Glucose 112 H POC Glucose 202 H 135 H 04/04/20 07:41 Glucose POC Glucose 116 H OUTPATIENT ANTIDIABETIC REGIMEN: * Novolog insulin pump, provides 14 units basal per day, total daily insulin dose ~24units * A1c = 8.5% ASSESSMENT: 04/04/20 * Pt has received 26 units of insulin over the past 24hrs * 14 units of basal insulin with Lantus * 12 units of bolus insulin with NovoLog * BSGs [id number] mg/dl * AM fasting BSG is in goal range with current basal insulin orders. No changes needed * Post-prandial BSGs elevated once diet resumed. CHO ratio significantly loosened yesterday morning when BSGs were in the 80-90's range. Will tighten parameters back since pt ordered a diet now. 04/03/20 * Type 1 diabetic admitted to ICU for acute resp failure felt to be secondary to fluid overload * His insulin pump has been disconnected and he has been converted to SQ basal / bolus regimen * Pharmacy has followed this patient in the past, however he was utilizing the Omnipod insulin system which he used to control his BSGs during the hospitalization * Glycemic control has improved over the last 24 hrs. Will continue Lantus - dose provided will be equal to total daily basal dose delivered by pump. Rapid activing Novolog dose will be based upon outpt insulin regimen as well as prior admission data PLAN FOR INPATIENT GLYCEMIC CONTROL: * Hold insulin pump * Basal insulin * Lantus 14 units SQ Q HS * Bolus insulin: tighten CR * NovoLog per scale ACHS or Q6hrs while NPO * Goal Range: Low 110 mg/dL - High 140 mg/dL * Correction Factor: 40 mg/dL/unit * Nutritional / Prandial insulin per carb ratio of 1 unit per 15 grams CHO consumed PLAN FOR DISCHARGE: * to be determined; most likely patient can resume outpatient insulin pump as long as he is not experiencing significant hypo/hyperglycemia
--- NOTE | 2020-04-04 10:12 | Nephrology Progress Note ---
Date of Service April 04, 2020 Assessment & Plan (1) Kidney transplant recipient: Mr. Dalton seems much improved from his admission. His chest is now clear. I hear no rales. His systolic blood pressure is slightly elevated. Nonetheless, his symptoms of volume overload/congestive heart failure seem to have resolved with diuresis. He does have a significant anemia with a hemoglobin of 8.1. I gave him a dose of Procrit yesterday. His transferrin saturation is low and his red cell i ndices borderline low. I suspect, despite his ferritin which is in the normal range, that he is somewhat iron deficient. Stools for occult blood have been ordered but this can be followed up as an outpatient. We will get him back on his regular doses of Aranesp. I reviewed with him the necessity for him to follow daily weights at home and suggested he do so wearing his prosthesis. I told him that he would need to take extra doses of Lasix if his weight suddenly jumped by 3 pounds. He should continue with all of his other routine medications. His immunosuppression should not change. He should continue with sirolimus 4 mg daily at bedtime and prednisone 5 mg daily. He will continue with his insulin pump. We will continue to use his furosemide which she can take every other day in a dose of 80 mg. However, I told him to increase it to daily or twice a day if his weight suddenly jumps by 3 pounds over his apparent current dry weight. We can follow him up in the office in about 1 week and will arrange for his continued use of Aranesp. I also suggested that he start taking iron sulfate 325 mg. He should start taking that daily and if he has no side effect such as constipation or abdominal pain that he should increase to 2 a day. If necessary, we can give him IV iron as an outpatient. (2) Chronic renal insufficiency: (3) Anemia: (4) CHF exacerbation: Admission and Anticipated Discharge Date Admission Date: April 02, 2020 Subjective Mr. Dalton says that he is feeling "great." He denies having any chest discomfort and he denies having any shortness of breath. He has responded reasonably well to his doses of Lasix. He has no symptoms of uremia or volume overload. Laboratory work continues to show a significant anemia with a hemoglobin of 8.1 today. Red cell indices are at the low range of normal. His transferrin saturation is only 5%. His ferritin is in the normal range. He denies having any problems with abdominal pain. He has had no nausea or vomiting. He has had no hematemesis or melena. There has been no change in his bowel habits. His review of systems is otherwise unremarkable. He is having no difficulty making his urine. Physical Exam Physical Exam: On physical examination, Mr. Dalton appears to be at about his baseline. He appears to be of about his stated age of 44 or perhaps slightly younger. His blood pressure is 156/83 this morning. His pulse is 74 and regular. Respiratory rate is 18 and his pulse ox is 92% on room air. He is afebrile (36.7). His skin shows a sallow complexion. His skin turgor is normal. There is no rash or infiltrative skin disease. He has multiple tattoos. He has scars from prior surgical procedures most notably in the left antecubital fossa from his AV fistula and in the right lower quadrant from his kidney transplant. He also has a left below the knee amputation. His stump appears clean. He has no palpable lymphadenopathy. His head is grossly normal. Eyes are grossly normal. The ocular fundi were not examined. Previously, he had changes of old diabetic retinopathy and previous laser photocoagulation. His vision seems reasonably good. Ears, nose, mouth and throat are unremarkabl e. Oral mucous membranes are moist. His dentition is in fair to good repair. His neck is supple. There is no jugular venous distention, carotid bruit or thyromegaly. His chest is clear to auscultation. I hear no wheezes, rales or rhonchi. Cardiac exam shows a regular rhythm. S1 and S2 were normal. He has a grade 2/6 to 3/6 systolic murmur at the upper left sternal border and base radiating toward the neck. He has no gallop sounds. I hear no diastolic murmurs. His abdomen is nontender. There is no definite organomegaly or mass. His renal transplant is palpable in the right lower quadrant. There is no bruit over the graft. Extremities show the left below the knee amputation. He has no edema of his right leg. His neurologic exam shows no lateralizing changes. He has diminished protective sensation in his right foot compared to his right knee. Results & Data ([facility]) Vital Signs (Past 12 Hours) Vital Signs Temp Pulse Resp BP Pulse Ox 04/04/20 07:30 36.7 C 74 18 156/83 H 92 04/04/20 04:28 36.7 C 75 17 142/86 H 94 04/03/20 23:01 37.3 C 95 H 18 139/76 94 Laboratory Results Laboratory Results - last 24 hr 04/03/20 04/03/20 04/03/20 04:13 12:05 16:44 WBC RBC Hgb Hct MCV MCH MCHC RDW Std Deviation RDW Coeff of Michelle Plt Count MPV Immature Gran % (Auto) Neut % (Auto) Lymph % (Auto) [place] % (Auto) Eos % (Auto) Baso % (Auto) Neut # (Auto) Lymph # (Auto) [place] # (Auto) Eos # (Auto) Baso # (Auto) Immature Gran # (Auto) Absolute Nucleated RBC Nucleated RBC % (auto) Sodium Potassium Chloride Carbon Dioxide Anion Gap BUN Creatinine Est Cr Clr Drug Dosing Est GFR ( Amer) Est GFR (Non-Af Amer) BUN/Creatinine Ratio Glucose POC Glucose 86 249 H Calcium Iron 9 L Transferrin 130 L Transferrin % Sat 5 L Ferritin 119.7 Vitamin B12 Folate 04/03/20 04/03/20 04/04/20 20:19 23:59 04:30 WBC RBC Hgb Hct MCV MCH MCHC RDW Std Deviation RDW Coeff of Michelle Plt Count MPV Immature Gran % (Auto) Neut % (Auto) Lymph % (Auto) [place] % (Auto) Eos % (Auto) Baso % (Auto) Neut # (Auto) Lymph # (Auto) [place] # (Auto) Eos # (Auto) Baso # (Auto) Immature Gran # (Auto) Absolute Nucleated RBC Nucleated RBC % (auto) Sodium Potassium Chloride Carbon Dioxide Anion Gap BUN Creatinine Est Cr Clr Drug Dosing Est GFR ( Amer) Est GFR (Non-Af Amer) BUN/Creatinine Ratio Glucose POC Glucose 200 H 202 H 135 H Calcium Iron Transferrin Transferrin % Sat Ferritin Vitamin B12 Folate 04/04/20 04/04/20 04/04/20 06:20 06:20 06:20 WBC 7.25 RBC 3.07 L Hgb 8.1 L Hct 24.8 L MCV 80.8 MCH 26.4 MCHC 32.7 RDW Std Deviation 50.0 H RDW Coeff of Michelle 16.8 H Plt Count 165 MPV 12.7 H Immature Gran % (Auto) 0.4 Neut % (Auto) 58.5 Lymph % (Auto) 30.1 [place] % (Auto) 8.8 Eos % (Auto) 1.9 Baso % (Auto) 0.3 Neut # (Auto) 4.24 Lymph # (Auto) 2.18 [place] # (Auto) 0.64 H Eos # (Auto) 0.14 Baso # (Auto) 0.02 Immature Gran # (Auto) 0.03 H Absolute Nucleated RBC 0.02 H Nucleated RBC % (auto) 0.3 Sodium 143 Potassium 4.0 Chloride 111 H Carbon Dioxide 21 Anion Gap 11.0 BUN 109 H Creatinine 3.58 H Est Cr Clr Drug Dosing 22.9 Est GFR ( Amer) 22.6 Est GFR (Non-Af Amer) 19.5 BUN/Creatinine Ratio 30.6 H Glucose 112 H POC Glucose Calcium 8.5 Iron Transferrin Transferrin % Sat Ferritin Vitamin B12 760 Folate 16.70 04/04/20 07:41 WBC RBC Hgb Hct MCV MCH MCHC RDW Std Deviation RDW Coeff of Michelle Plt Count MPV Immature Gran % (Auto) Neut % (Auto) Lymph % (Auto) [place] % (Auto) Eos % (Auto) Baso % (Auto) Neut # (Auto) Lymph # (Auto) [place] # (Auto) Eos # (Auto) Baso # (Auto) Immature Gran # (Auto) Absolute Nucleated RBC Nucleated RBC % (auto) Sodium Potassium Chloride Carbon Dioxide Anion Gap BUN Creatinine Est Cr Clr Drug Dosing Est GFR ( Amer) Est GFR (Non-Af Amer) BUN/Creatinine Ratio Glucose POC Glucose 116 H Calcium Iron Transferrin Transferrin % Sat Ferritin Vitamin B12 Folate PG Care Time/CCT Total # of Minutes Spent Total Time Spent with Patient: Total time spent is greater than 50% in coordination of care (as documented) at patient's floor/unit and/or counseling patient: Coding Level of Care Code 28282 Subseq Hosp Care Lvl 3 Diagnoses Kidney transplant recipient Z94.0 Chronic renal insufficiency N18.9 Anemia D64.9 CHF exacerbation I50.9 Heart failure type: unspecified (1) CHF exacerbation Heart failure type: unspecified Qualified Code(s): I50.9 - Heart failure, unspecified
--- NOTE | 2020-04-04 13:36 | Discharge Summary ---
Date of Service date of admission - April 02, 2020 date of discharge - April 04, 2020 Admission HPI Per Admitting Provider 44yo male - s/p renal transplant in 2001 on prednisone and sirolimus, T1DM on insulin pump, and CAD who presents with worsening dyspnea at rest, FISHER, and orthopnea. Patient states he noted some mild dyspnea over the last 2-3 days but was able to carry on normal day-to-day activities. 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 He came home to take a nap and it was very uncomfortable due to severe orthopnea. This prompted him coming to the ER. He denies high salt foods or noncompliance with medications. He takes lasix 80mg qod and last dose was on Friday. Denies fevers. Has had good appetite. Some chills this afternoon when he was on the way to the ER. No sore throat, ear pain, runny nose or loss of taste/smell. Denies sick contacts or obvious exposure to COVID-19. He was coughing during the visit but he denied having cough at home. No diarrhea but did have vomiting earlier today. In the ED he was given lasix 40mg IV x 1 without any significant UOP. Additional lasix 40mg IV x 1 was given. BIPAP 10/5 was applied. Several hours following ER presentation he finally made about 300cc of urine but remained with significant respiratory distress. Principal Diagnosis acute hypoxic respiratory failure 2nd to volume overload from advanced kidney disease Discharge Exam Constitutional no acute distress and no altered mental status ENMT external ear and nose normal, oropharynx normal Neck trachea midline, no thyromegaly Respiratory no respiratory distress Auscultation: no crackles and no wheezes Cardiovascular Rate/Rhythm: regular rate and regular rhythm Heart Sounds: normal S1, normal S2 and + murmur (1-2/6 systolic) Vessels: posterior tibial pulses present (Right foot) and dorsalis pedis pulses present (Right foot); no JVD Extremities: no edema (Resolved RLE) Gastrointestinal (Abdomen) normal bowel sounds, soft, nontender, no hepatosplenomegaly renal transplant right lower quadrant - non tender Skin no rashes, warm and dry Neurologic moves all extremities; no focal motor deficits Psychiatric A+Ox3, euthymic affect Discharge Data Allergies Allergy/AdvReac Type Severity Reaction Status Date / Time PORK INSULIN Allergy Unknown Hives Uncoded 04/02/20 17:50 Consultations Consult Crib Clerk Routine Consult Nephrology Routine Procedures Performed echocardiogram: * EF 55-60% * no regional wall motion abnormalities * aortic valve sclerosis * mild mitral regurgitation Hospital Course (1) Acute hypoxemic respiratory failure: 2nd to pulmonary edema/volume overload in setting of advanced kidney disease and diastolic dysfunction. The big culprit in his hypervolemia is the advanced kidney disease of his renal transplant. Upon presentation to the ER he was having significant respiratory distress requiring use of BIPAP. He remained on BIPAP for most of the first night in the hospital. He was treated in the ICU during that first night as well (see below). Following aggressive diuresis the BIPAP was weaned off. COVID testing was negative. (2) Chronic kidney disease, stage IV (severe): Baseline Cr is about 3.5 to 4. He was volume overloaded clinically and radiographically at time of admission. He required large doses of IV lasix (80mg to 120mg each dose) for diuresis. Cr at time of discharge was 3.5. He was seen by Dr Zhen Samson, his primary automation architect, in consultation. Dr Samson advised ongoing use of PO lasix 80mg QOD at home, with instructions to increase to daily dosing of lasix for any weight gain of 3 pounds or more. He certainly may need a larger dose of lasix as well at home if efforts to maintain euvolemia prove difficult. (3) Acute exacerbation of CHF (congestive heart failure): Acute/chronic diastolic CHF in setting of advanced CKD of his renal transplant. Decompensation MUCH improved following aggressive diuresis. Echo this admission was unchanged from prior echo. He continues on metoprolol succinate 75mg HS along with lasix 80mg QOD. (4) Kidney transplant recipient: 2001. Continue prednisone 5mg daily. Continue sirolimus 4mg HS. Baseline Cr about 3.5 to 4. Discharge Cr was 3.5. Seen by Dr Samson who provided landin recommendations for his care. Did receive epogen injection x 1 while hospitalized. (5) Diabetes mellitus type 1: On insulin pump. A1C 6.7% in 01/2020. A1c now >8%. Pharmacy providing glycemic management during the stay. On day of discharge he was transitioned back to his pump. (6) S/P BKA (below knee amputation) unilateral: Left. (7) DIANE (obstructive sleep apnea): Records suggest he should be using CPAP but uncertain if he is compliant. (8) HTN (hypertension): Continue metoprolol. BPs very high at presentation - likely due to volume overload - much improved with aggressive diuresis. (9) Dyslipidemia: Continue statin. (10) CAD in cachil dehe artery: Initial troponin negative. 2nd troponin + --- likely myocardial demand ischemia in setting of volume overload/pulmonary edema. Doubt NSTEMI. Continue asa, statin, plavix, BB. (11) Gastroesophageal reflux: Continue PPI. (12) Gout: Continue allopurinol prophylaxis. no flares. (13) Anemia: Discharge hemoglobin 8.1. He did receive 1 dose of epogen while here. Ferritin level was 119. Transferrin saturation was only 5%. He was asked to take once daily ferrous sulfate at home on daily basis. He potentially may need IV iron as an outpatient. No overt GI bleeding while here. Anemia likely 2nd to CKD. Total Time Total Time Spent Total Time Spent (In Minutes): 40 Total Time Includes: Examination of the Patient, Discharge Planning, Medication Reconciliation and Communication With Other Providers Discharge Plan Discharge Items Patient Disposition: Home - Self-Care Reason For Visit: Difficulty breathing Discharge Diagnosis: Pulmonary edema (water retention/fluid retention of the lungs) requiring brief ICU stay. Fluid retention resolved with IV diuretics. Fluid retention is due to kidney disease. Activity: Resume your previous activity Non-emergency contact: Primary Care Provider Call non-emergency contact if: you have any medication questions and your symptoms worsen Follow-up/Referrals: Kobe Samson MD [Primary Care Provider] - 04/07/20 1:00 pm (You have an appt with Korina Lima on 04/07 @ 1pm. Please arrive 15 minutes prior to your appt. If for any reason this appt does not fit into your schedule please call [phone] to reschedule. ) Diet: Carb Count or DM1 and Dialysis Renal Fluids: 1800ml (7 cups) Addtl Attending Provider Instructions: Mr Dalton, You were admitted to the hospital for fluid retention in the lungs leading to difficulty breathing. The medical term for fluid in the lungs is called pulmonary edema. You improved with IV diuretics. With getting the fluid out your breathing returned to normal and your oxygen was weaned off. COVID testing was negative. There was no evidence of pneumonia. Your renal transplant has developed dysfunction which can lead to fluid retention. Your creatinine level has been fluctuating between 3.[address] Samson recommends the following - 1. take furosemide water pill 80mg every other day. Start this tomorrow on 04/05/20. 2. weigh yourself every morning on the same scale. Be sure to weigh yourself with your prosthesis in place. write down your weight every morning in a notebook. if your weight rises 3 pounds or more over a 1-2 day period this is likely fluid/water retention. if you gain weight start taking furosemide EVERY DAY. Take daily until your weight is back to your "dry weight." Once back to your dry weight then resume the water pill every other day as previous. In addition, limit fluid consumption to about 1800cc/day and salt consumption to about 2000mg/day. Take [id number] ferrous sulfate 325mg once daily. This is iron. Iron commonly causes constipation. It can also make your stools look dark. This is normal. Finally, continue to mask ANY TIME you leave your home. You are at high risk of catching COVID and having significant illness from it due to your immunocompromised health from the kidney transplant. Additional instructions - Call 911 and go to the Emergency Room if: * You have tightness or pain in your chest that does not go away with rest or Nitroglycerin * You are very short of breath even with rest Call your doctor if any of the following symptoms or problems start or get worse: * Shortness of breath or difficulty breathing * Wake up at night short of breath * Chest pain * Cough * Swelling of your hands, fee, or legs * More fatigued or tired with your normal activity * Palpitations - sudden fast heart beats WEIGHT * Weigh yourself every morning after using the bathroom. * Use the same scale. * Wear the same amount of clothing. * Write your weight down on your chart. * Remember: if you gain 3 pounds or more in 1-2 days please start taking furosemide EVERY DAY until your weight is back down to your normal, dry weight. If your weight is not coming down, or if you are having worsening breathing, please contact Dr Samson right away. MEDICATIONS * Use this discharge instruction sheet for instructions. * Take your medications at the time your doctor ordered. * Do not skip a dose of your medicines. * If you miss a dose of medicine, take as soon as possible, but DO NOT DOUBLE A DOSE. * Read your medicine information when you get home. * Know all of the side effects of your medicine. * Call your doctor's office if you have any side effects. * Be sure all of your doctors know what medicine and herbs you take (including cold, flu, and herbal medicine). * Pain Medicine: If you do not get relief from your pain, please call your doctor for help. Take the following with you to your follow-up doctor appointments: * Weight Chart * Medication List * List of questions Do not drink excessive alcohol, beer or wine. Follow-up - see separate section Return to [facility] if - * you have fevers over 100 degrees * you have worsening shortness of breath * you have chest pains * you have uncontrolled blood sugars * any other concerns It was my pleasure caring for you, -Dr Espitia Pending Studies at Discharge: No Stand-Alone Forms: My [facility], Smoking Cessation Medications and DC Order Prescriptions: New ferrous sulfate 325 mg (65 mg iron) tablet 325 mg PO DAILY Qty: 30 RF: 2 Continued (DME) Dexcom G6 Fish Liver Sorter misc See Dose Instructions .ROUTE .MEDSUPPLY Qty: 1 RF: 0 (DME) insulin syringe-needle U-100 [BD Insulin Syringe Ultra-Fine] 0.5 mL 31 gauge x 5/16" syringe See Dose Instructions .ROUTE .MEDSUPPLY Qty: 100 RF: 3 (DME) Dexcom G6 Sensor Device See Dose Instructions .ROUTE .MEDSUPPLY Qty: 9 RF: 3 allopurinol 300 mg tablet 300 mg PO HS Qty: 90 RF: 3 aspirin 81 mg tablet,delayed release (DR/EC) 81 mg PO HS Qty: 30 RF: 5 atorvastatin 80 mg tablet 80 mg PO HS Qty: 90 RF: 3 clindamycin phosphate 1 % solution 1 applic topical BID Qty: 60 RF: 5 doxycycline hyclate 50 mg capsule 50 mg PO BID Qty: 180 RF: 3 furosemide [Lasix] 40 mg tablet 80 mg PO Q OTHER DAY Qty: 60 RF: 5 pantoprazole 40 mg tablet,delayed release (DR/EC) 40 mg PO HS Qty: 90 RF: 3 prednisone 5 mg tablet 5 mg PO HS Qty: 90 RF: 3 pregabalin [Lyrica] 75 mg capsule 150 mg PO HS Qty: 90 RF: 5 sertraline 50 mg tablet 100 mg PO HS Qty: 90 RF: 3 sirolimus 2 mg tablet 4 mg PO HS Qty: 180 RF: 3 (DME) Dexcom G6 Transmitter Device See Dose Instructions .ROUTE .MEDSUPPLY Qty: 1 RF: 3 Glucagon Emergency Kit (human) 1 mg recon soln 1 mg IM DIRECTED PRN (Reason: LOW BLOOD SUGAR) RF: 0 (DME) lancets [OneTouch Delica Lancets] 33 gauge misc See Dose Instructions .ROUTE .MEDSUPPLY Qty: 100 RF: 0 Aranesp (in polysorbate) 200 mcg/0.4 mL syringe 200 mcg subcut Q14D RF: 0 metoprolol succinate 25 mg capsule,sprinkle,ER 24hr 75 mg PO HS RF: 0 clopidogrel [Plavix] 75 mg tablet 75 mg PO HS RF: 0 insulin aspart U-100 [Novolog U-100 Insulin aspart] 100 unit/mL solution 50 unit subcut DAILY RF: 0 calcitriol 0.25 mcg capsule 0.25 mcg PO HS RF: 0 Discharge Orders: Discharge Order (Routine); Ordered 04/04/20 Ordered By: Kobe Espitia Admission Data Admit Date/Time: 04/02/20 19:33 Attending Provider: Kobe Espitia Admit Provider: Kobe Espitia Primary Care Provider: Kobe Samson Other Providers: Kobe Espitia ; Alfonzo Joel ; Paras Oneil Other Interventions: Discharge Summary Assessment (RN) Last Done: 04/04/20 13:40 Coding Level of Care Code D/C Day Management >30 mins Diagnoses Acute hypoxemic respiratory failure J96.01 Chronic kidney disease, stage IV (severe) N18.4 Acute exacerbation of CHF (congestive heart failure) I50.9 Heart failure type: unspecified Kidney transplant recipient Z94.0 Diabetes mellitus type 1 E10.69 Diabetes mellitus complication status: with other specified complication S/P BKA (below knee amputation) unilateral Z89.519 DIANE (obstructive sleep apnea) G47.33 HTN (hypertension) I10 Dyslipidemia E78.5 CAD in cachil dehe artery I25.10 Gastroesophageal reflux K21.9 Esophagitis presence: esophagitis presence not specified Gout M10.9 Chronicity: unspecified Gout etiology: unspecified cause Gout site: unspecified site Anemia D64.9
== END 2020-04-04 13:45 | disposition home or self-care (01) | DRG 291 ==
LOC: ED 17:22 → 1E 19:33 → 2W 04-03 12:23

== ENCOUNTER 2021-03-07 10:53 | Inpatient (IN) ==
[2021-03-07 11:31] LABS: Mean Corpuscular Hgb Conc 30.5 g/dL (32-36)
[2021-03-07 11:40] LABS: Hematocrit (blood only) 32.5 % (42-52); Hemoglobin 9.9 g/dL (14.0-18.0); Mean Corpuscular Hemoglobin 25.8 pg (25-34); Mean Corpuscular Volume 84.9 fL (80-100); RDW Standard Deviation 55.7 fL (36.4-46.3); Red Blood Count 3.83 M/uL (4.7-6.1); White Blood Count 8.66 K/uL (4.8-10.8)
--- NOTE | 2021-03-07 11:45 | XRay Report ---
XR chest 1V portable HISTORY: 45 years-old Male SOB acute shortness of breath COMPARISON: Chest radiographs 01/11/2021 TECHNIQUE: Portable AP view of the chest FINDINGS: Cardiac silhouette is enlarged. Pulmonary vascular congestion with interstitial coarsening. No pneumo thorax or large pleural effusion. With mild blunting of the costophrenic angles. No lobar airspace co nsolidation. The bones of the chest appear grossly intact. Subacute to chronic appearing displaced fr acture of the posterior left fourth rib is unchanged. IMPRESSION: 1. Cardiomegaly with pulmonary vascular congestion and interstitial coarsening suggestive of pulmonar y edema versus interstitial pneumonitis. 2. Probable trace pleural effusions. ACT 112: Negative or not required by law. The above report was generated using voice recognition software. It may contain grammatical, syntax o r spelling errors. Electronically signed by: Marquise Babb M.D. 03/07/2021 11:44 AM
[2021-03-07 11:52] LABS: INR 1.1 (0.9-1.1); Partial Thromboplastin Ratio 1.1; Partial Thromboplastin Time 27.9 Seconds (21.0-31.0); Prothrombin Time 10.8 Seconds (9.0-12.0)
[2021-03-07 11:54] LABS: Acanthocytes 1+; Basophils # (auto) 0.01 K/uL (0-0.2); Basophils % (auto) 0.1 %; Eosinophils # (auto) 0.02 K/uL (0-0.5); Eosinophils % (auto) 0.2 %; Immature Granulocytes # (auto) 0.03 K/uL (0.00-0.02); Immature Granulocytes % (auto) 0.3 %; Lymphocytes # (auto) 1.23 K/uL (1.2-3.4); Lymphocytes % (auto) 14.2 %; Monocytes # (auto) 0.51 K/uL (0.11-0.59); Monocytes % (auto) 5.9 %; Neutrophils # (auto) 6.86 K/uL (1.4-6.5); Neutrophils % (auto) 79.3 %; Platelet Count 121 K/uL (130-400); Platelet Estimate Decreased (Normal); Polychromasia 1+
[2021-03-07 12:04] LABS: Albumin Globulin Ratio 0.7 (0.9-2); Albumin Level 2.8 gm/dl (3.4-5.0); BUN Creatinine Ratio 20.2 (10-20); Bilirubin,Total 0.5 mg/dl (0.2-1); Creatinine Clr Calc Pharmacy 17.7 ml/min; Est GFR (Non-African American) 12.9 ml/min; Globulin 4.1 gm/dl (2.5-4.0); Magnesium 2.2 mg/dl (1.8-2.4); Potassium 3.4 mmol/L (3.5-5.1); Total Protein 6.9 gm/dl (6.4-8.2); Troponin I 0.049 ng/ml (0-0.045)
--- NOTE | 2021-03-07 12:46 | Emergency Department Note ---
History of Present Illness General Chief Complaint: Shortness of Breath/Dyspnea Stated Complaint: SOB,DIALYSIS PT Time Seen by Provider: 03/07/21 11:48 History of Present Illness Provider Complaint: shortness of breath Onset (ago): day(s) (2) Severity: mild Relieved By: + rest Exacerbated By: + exertion and + coughing Context: no recent illness, no choking/aspiration, no medication noncompliance or no recent travel Known history of: congestive heart failure Associated symptoms: + chest pain (tighness) and + chest congestion; no fever, no cough, no wheezing, no sputum production, no orthopnea, no lower extremity pain, no polyuria, no paresthesias, no palpitations, no hemoptysis, no diaphoresis, no nausea/vomiting, no syncope, no abdominal pain, no rash or no lightheadedness HPI Narrative: Patient states he was supposed to start peritoneal dialysis today and when he got to the dialysis center he told the nurse how he was feeling and she called Dr. Myrick his underwater welder who referred him to the emergency department. Home Medications Medication Instructions Recorded Confirmed Type glucagon (human recombinant) 1 mg 1 mg IM DIRECTED PRN 10/05/18 03/07/21 History solution for injection (Glucagon Emergency Kit) allopurinol 300 mg tablet 300 mg PO HS #90 tab 03/30/20 03/07/21 Rx atorvastatin 80 mg tablet 80 mg PO HS #90 tab 03/30/20 03/07/21 Rx doxycycline hyclate 50 mg capsule 50 mg PO BID #180 cap 03/30/20 03/07/21 Rx pantoprazole 40 mg tablet,delayed 40 mg PO HS #90 tab 03/30/20 03/07/21 Rx release prednisone 5 mg tablet 5 mg PO HS #90 tab 03/30/20 03/07/21 Rx sirolimus 2 mg tablet 4 mg PO HS #180 tab 03/30/20 03/07/21 Rx ferrous sulfate 325 mg (65 mg 325 mg PO DAILY #30 tab 04/04/20 03/07/21 Rx iron) tablet metoprolol succinate 25 mg See Rx Instructions .ROUTE 07/13/20 03/07/21 Rx tablet,extended release 24 hr .COMPLEX #90 tab aspirin 81 mg tablet,delayed 81 mg PO HS #30 tab 09/25/20 03/07/21 Rx release clopidogrel 75 mg tablet (Plavix) 75 mg PO HS #30 tab 09/25/20 03/07/21 Rx sevelamer carbonate 800 mg tablet 800 mg PO TID #270 tab 10/02/20 03/07/21 Rx (Renvela) pregabalin 75 mg capsule (Lyrica) 150 mg PO HS #90 cap 10/05/20 03/07/21 Rx calcitriol 0.5 mcg capsule 0.5 mcg PO Q OTHER DAY 10/10/20 03/07/21 History clindamycin phosphate 1 % topical 1 applic TOPICAL BID PRN 10/10/20 03/07/21 History solution furosemide 40 mg tablet (Lasix) 80 mg PO DAILY #60 tab 11/16/20 03/07/21 Rx potassium chloride 10 mEq 20 meq PO DAILY #180 tab 11/16/20 03/07/21 Rx tablet,extended release ergocalciferol (vitamin D2) 1,250 1,250 mcg PO .weekly #24 cap 11/22/20 03/07/21 Rx mcg (50,000 unit) capsule diclofenac sodium 1 % topical gel 2 g TOPICAL QID #100 g 12/04/20 03/07/21 Rx sertraline 100 mg tablet 100 mg PO HS #30 tab 12/20/20 03/07/21 Rx ropinirole 0.5 mg tablet 0.5 mg PO DAILY #90 tab 01/18/21 03/07/21 Rx insulin aspart U-100 100 unit/mL 50 unit SUBCUT DAILY 90 Days #50 ml 02/09/21 03/07/21 Rx subcutaneous solution (Novolog U-100 Insulin aspart) Allergies Allergy/AdvReac Type Severity Reaction Status Date / Time PORK INSULIN Allergy Intermediate Hives Uncoded 02/02/21 16:11 Past Med/Surg History Medical History Acute respiratory failure with hypoxia AMI anterolateral wall CAD (coronary artery disease) CAD in [place] artery Chewing tobacco nicotine dependence Deep vein thrombosis ARM (10 YEARS AGO) AT [facility] Fistula LEFT ARM (NON FUNCTIONING) Gout Mitral regurgitation MILD-MOD Myocardial Infarction 2016 Peripheral neuropathy Sensory problems with limbs Sleep apnea CPAP STEMI (ST elevation myocardial infarction) Surgical History H/O eye surgery LEFT/RT LASER SURGERY History of below knee amputation LEFT REVISION (5 TOTAL) History of cardiac cath 2016 - [place] - [facility] - 2 STENTS - FOLLOWS W/ DR. JURADO History of heart artery stent 2016 (2 STENTS PLACED) AT [facility] History of right hip replacement 03/17/2019 [facility] History of total replacement of right hip Kidney transplant recipient 2002 Status post left hip replacement Family History Grandfather Family history of diabetes mellitus Other No family history of adverse response to anesthesia Social History Smoking Status: Never smoker Second Hand Exposure: No; Hx Alcohol Use: Yes Alcohol type: beer Alcohol Intake Frequency: 2-3 x/Week Hx Substance Use: No Preferred Language: Chinese Communication Ability: Effective Outreach Associate Required: No Beliefs That Will Affect Care: None marital status: Current Living Situation: Spouse current occupational status: employed 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 - [employer] How many Children do You have: 2 How many Children do You have Comment: 1 is Feels Safe at Home: Yes Assistive Devices: Prosthesis and Wheelchair Review of Systems A total of 10 systems reviewed and were otherwise negative Physical Exam Vital Signs: Vital Signs - 24 hr 03/07/21 10:54 03/07/21 11:00 03/07/21 11:11 Temperature 37 C Temperature Source Temporal Artery Sc an Pulse Rate 80 81 Pulse Rate from Sp O2 Sensor 81 Respiratory Rate 16 18 Respiratory Effort / Characteristics Non-Labored Sponta neous Respiratory Depth Normal Respiratory Patter n Regular Blood Pressure 142/83 H Blood Pressure Paula n 102 Pulse Oximetry 94 95 Oxygen Delivery Me thod Room Air Room Air Sepsis Recent Feve r Within 48 Hours No Sepsis New/Unexpla ined Change in Men nora Status No Sepsis Action Take n by Nursing No Action Required 03/07/21 11:20 03/07/21 11:30 03/07/21 11:31 Temperature Temperature Source Pulse Rate 79 79 78 Pulse Rate from Sp O2 Sensor 79 79 78 Respiratory Rate 24 22 22 Respiratory Effort / Characteristics Respiratory Depth Respiratory Patter n Blood Pressure 173/94 H Blood Pressure Paula n 120 Pulse Oximetry 96 94 94 Oxygen Delivery Me thod Sepsis Recent Feve r Within 48 Hours Sepsis New/Unexpla ined Change in Men nora Status Sepsis Action Take n by Nursing Physical Exam: Physical Exam GENERAL: He is oriented to person, place, and time. He appears well-developed and well-nourished. He does not appear distressed. HENT: Exam performed. - Head: Normocephalic and atraumatic. - Right Ear: External ear normal. No mastoid tenderness. - Left Ear: External ear normal. No mastoid tenderness. - Mouth/Throat: The oropharynx is clear and moist. No trismus in the jaw. No dental abscesses or uvula swelling. No oropharyngeal exudate or tonsillar abscesses. EYES: Conjunctivae and EOM are normal. Pupils are equal, round, and reactive to light. Right eye exhibits no discharge. Left eye exhibits no discharge. No scleral icterus. NECK: Normal range of motion. Neck supple. No JVD present. No spinous process t enderness present. No carotid bruit present. No rigidity. No tracheal deviation and normal range of motion present. No Brudzinski's sign and no Kernig's sign noted. CV: Normal rate, regular rhythm, normal heart sounds and intact distal pulses. There is no peripheral edema. Palpable radial pulses bue. PULM/CHEST: Inspiratory rales at the bases bilaterally. - Chest Wall: He exhibits no tenderness. ABD: The abdomen is soft. Bowel sounds are normal. There is no tenderness. Peritoneal dialysis catheter in place with no surrounding erythema or discharge. MUSC/SKEL: Left-sided BKA. LYMPH: No cervical adenopathy. NEURO: He is alert and oriented to person, place, and time. He has normal strength. No cranial nerve deficit or sensory deficit. Coordination and gait normal. GCS eye subscore is 4. GCS verbal subscore is 5. GCS motor subscore is 6. Cerebellar tests wnl. SKIN: Skin is warm and dry. He is not diaphoretic. PSYCH: He has a normal mood and affect. Behavior is normal. Judgment and thought content normal. Course Course 1148: The patient was evaluated in room A12. A complete history and physical exam was performed Cardiac monitoring: An order was placed for continuous cardiac monitoring. The monitor shows a rate of 80 with sinus rhythm 1234: Vital signs stable. Labs show hemoglobin 9.9. Platelet count 121. White blood cell count within normal limits. Creatinine of 5. Troponin 0 0.049. Chest x-ray shows fluid overloaded. Spoke with Dr. Myrick patient's underwater welder extension [phone] he states he will call me back. 1301: Dr. Myrick called back and states he recommends to have the patient brought into the hospitalist team to be evaluated by cardiology and he will arrange for the patient to have inpatient peritoneal dialysis he states he spoke with Dr. Uribe to arrange this. Spoke with Dr. Rico who agrees to evaluate the patient Medical Decision Making Laboratory Data Result diagrams: 03/07/21 11:18 03/07/21 11:18 Lab Results 03/07/21 03/07/21 03/07/21 Range/Units 11:18 11:18 11:18 WBC 8.66 (4.8-10.8) K/uL RBC 3.83 L (4.7-6.1) M/uL Hgb 9.9 L (14.0-18.0) g/dL Hct 32.5 L (42-52) % MCV 84.9 (80-100) fL MCH 25.8 (25-34) pg MCHC 30.5 L (32-36) g/dL RDW Std Deviation 55.7 H (36.4-46.3) fL RDW Coeff of Michelle 18.0 H (11.5-14.5) % Plt Count 121 L (130-400) K/uL Immature Gran % (Auto) 0.3 % Neut % (Auto) 79.3 % Lymph % (Auto) 14.2 % Newton % (Auto) 5.9 % Eos % (Auto) 0.2 % Baso % (Auto) 0.1 % Neut # (Auto) 6.86 H (1.4-6.5) K/uL Lymph # (Auto) 1.23 (1.2-3.4) K/uL Newton # (Auto) 0.51 (0.11-0.59) K/uL Eos # (Auto) 0.02 (0-0.5) K/uL Baso # (Auto) 0.01 (0-0.2) K/uL Immature Gran # (Auto) 0.03 H (0.00-0.02) K/uL Platelet Estimate Decreased L (Normal) Polychromasia 1+ Acanthocytes (Spur) 1+ PT 10.8 (9.0-12.0) Seconds INR 1.1 (0.9-1.1) APTT 27.9 (21.0-31.0) Seconds PTT Ratio 1.1 Sodium 135 L (136-145) mmol/L Potassium 3.4 L (3.5-5.1) mmol/L Chloride 97 L (98-107) mmol/L Carbon Dioxide 25 (21-32) mmol/L Anion Gap 13.0 H (3-11) BUN 103 H (7-18) mg/dl Creatinine 5.00 H* (0.6-1.4) mg/dl Est Cr Clr Drug Dosing 17.7 ml/min Est GFR ( Amer) 15.0 ml/min Est GFR (Non-Af Amer) 12.9 ml/min BUN/Creatinine Ratio 20.2 H (10-20) Glucose 182 H (70-99) mg/dl Calcium 9.0 (8.5-10.1) mg/dl Magnesium 2.2 (1.8-2.4) mg/dl Total Bilirubin 0.5 (0.2-1) mg/dl AST 62 H (15-37) U/L ALT 38 (12-78) Alkaline Phosphatase 179 H D (45-117) U/L Troponin I 0.049 H* (0-0.045) ng/ml Total Protein 6.9 (6.4-8.2) gm/dl Albumin 2.8 L (3.4-5.0) gm/dl Globulin 4.1 H (2.5-4.0) gm/dl Albumin/Globulin Ratio 0.7 L (0.9-2) Imaging Data Radiologist's Impression: Chest X-Ray 03/07/21 11:25 XR chest 1V portable HISTORY: 45 years-old Male SOB acute shortness of breath COMPARISON: Chest radiographs 01/11/2021 TECHNIQUE: Portable AP view of the chest FINDINGS: Cardiac silhouette is enlarged. Pulmonary vascular congestion with interstitial coarsening. No pneumothorax or large pleural effusion. With mild blunting of the costophrenic angles. No lobar airspace consolidation. The bones of the chest appear grossly intact. Subacute to chronic appearing displaced fracture of the posterior left fourth rib is unchanged. IMPRESSION: 1. Cardiomegaly with pulmonary vascular congestion and interstitial coarsening suggestive of pulmonary edema versus interstitial pneumonitis. 2. Probable trace pleural effusions. ACT 112: Negative or not required by law. The above report was generated using voice recognition software. It may contain grammatical, syntax or spelling errors. Electronically signed by: Marquise Babb M.D. 03/07/2021 11:44 AM ECG Data Interpretation: Sinus rhythm with a rate of 81. [place] QRS and QTc intervals within normal limits. No ST elevation or ST depression. [facility] Narrative 1148: The patient was evaluated in room A12. A complete history and physical exam was performed Cardiac monitoring: An order was placed for continuous cardiac monitoring. The monitor shows a rate of 80 with sinus rhythm 1234: Vital signs stable. Labs show hemoglobin 9.9. Platelet count 121. White blood cell count within normal limits. Creatinine of 5. Troponin 0 0.049. Chest x-ray shows fluid overloaded. Spoke with Dr. Myrick patient's underwater welder extension [phone] he states he will call me back. 1301: Dr. Myrick called back and states he recommends to have the patient brought into the hospitalist team to be evaluated by cardiology and he will arrange for the patient to have inpatient peritoneal dialysis he states he spoke with Dr. Uribe to arrange this. Spoke with Dr. Rico who agrees to evaluate the patient Impression & Plan Chest pain Discharge Plan Visit Data Chief Complaint: Shortness of Breath/Dyspnea Stated Complaint: SOB,DIALYSIS PT ED Provider: Jb Mireles Discharge Problem: Chest pain Patient Disposition: Being Evaluated by Hospitalist Forms Stand Alone Forms: [facility] Prescriptions Prescriptions: No Action allopurinol 300 mg tablet 300 mg PO HS Qty: 90 RF: 3 atorvastatin 80 mg tablet 80 mg PO HS Qty: 90 RF: 3 doxycycline hyclate 50 mg capsule 50 mg PO BID Qty: 180 RF: 3 pantoprazole 40 mg tablet,delayed release (DR/EC) 40 mg PO HS Qty: 90 RF: 3 prednisone 5 mg tablet 5 mg PO HS Qty: 90 RF: 3 sirolimus 2 mg tablet 4 mg PO HS Qty: 180 RF: 3 metoprolol succinate 25 mg tablet extended release 24 hr See Rx Instructions .ROUTE .COMPLEX Qty: 90 RF: 11 aspirin 81 mg tablet,delayed release (DR/EC) 81 mg PO HS Qty: 30 RF: 5 clopidogrel [Plavix] 75 mg tablet 75 mg PO HS Qty: 30 RF: 5 ergocalciferol (vitamin D2) 1,250 mcg (50,000 unit) capsule 1,250 mcg PO .weekly Qty: 24 RF: 0 sertraline 100 mg tablet 100 mg PO HS Qty: 30 RF: 6 ropinirole 0.5 mg tablet 0.5 mg PO DAILY Qty: 90 RF: 3 insulin aspart U-100 [Novolog U-100 Insulin aspart] 100 unit/mL solution 50 unit subcut DAILY 90 Days Qty: 50 RF: 1 diclofenac sodium 1 % gel 2 g topical QID Qty: 100 RF: 0 furosemide [Lasix] 40 mg tablet 80 mg PO DAILY Qty: 60 RF: 5 Hold Instructions: hold now potassium chloride 10 mEq tablet extended release 20 meq PO DAILY Qty: 180 RF: 3 sevelamer carbonate [Renvela] 800 mg tablet 800 mg PO TID Qty: 270 RF: 2 pregabalin [Lyrica] 75 mg capsule 150 mg PO HS Qty: 90 RF: 5 Glucagon Emergency Kit (human) 1 mg recon soln 1 mg IM DIRECTED PRN (Reason: LOW BLOOD SUGAR) RF: 0 ferrous sulfate 325 mg (65 mg iron) tablet 325 mg PO DAILY Qty: 30 RF: 2 Hold Instructions: Home Medication placed on hold at Doctor's office calcitriol 0.5 mcg capsule 0.5 mcg PO Q OTHER DAY RF: 0 clindamycin phosphate 1 % solution 1 applic topical BID PRN (Reason: Rash) RF: 0 Referrals Referrals: Korina Lima CRNP [Primary Care Provider] -
--- NOTE | 2021-03-07 13:11 | Electrocardiogram Report ---
Test Reason : Blood Pressure : / mmHG Vent. Rate : 081 BPM Atrial Rate : 081 BPM P-R Int : 198 ms QRS Dur : 096 ms QT Int : 418 ms P-R-T Axes : 052 038 118 degrees QTc Int : 485 ms Normal sinus rhythm Possible Left atrial enlargement Anteroseptal infarct (cited on or before 02-DEC-2019) Nonspecific T wave abnormality Abnormal ECG When compared with ECG of 11-JAN-2021 15:44, Nonspecific T wave abnormality now evident in Inferior leads Confirmed by Soto Luna ([id number]) on 03/07/2021 1:11:24 PM Referred By: SELF Confirmed By:Soto Luna
[2021-03-07 14:59] LABS: Hepatitis B Surface Ab Quant 4.98 mIU/mL (>or=10mIU/mL Immune); Hepatitis B Surface Antibody Non-Immune
[2021-03-07 15:09] LABS: Hepatitis B Surf Ag Rflx Conf Neg (Neg)
--- NOTE | 2021-03-07 15:16 | History & Physical Report ---
Date of Service March 07, 2021 Assessment & Plan (1) Chest pain: Plan: Associated with shortness of breath, suspect this may be multifactorial. Consider accelerated hypertension, fluid overload from renal disease, and possible anginal symptoms in a patient with known CAD Initial troponin was negative, will trend repeat EKG in the AM I will hold off on stress testing for now, we will ask cardiology to evaluate for possible cardiac catheterization considering patient's multiple risk factors and history Continue other medications as ordered including high intensity statin, dual antiplatelet with aspirin and Plavix. Patient is also on Toprol-XL Blood pressure is improved, but systolic is down to the 150s. We will continue outpatient medications and monitor. (2) Chronic renal insufficiency, stage IV (severe): Plan: Continue diuresis with Lasix 80 mg, will increase to every 12 hours IV. Patient does have a left wrist fistula which does not yet appear mature. We will ask nephrology to evaluate to see if dialysis can be initiated here as an inpatient (3) Hyperlipidemia: Plan: Atorvastatin 80 mg daily as ordered. 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 Diabetic diet if no plans for aggreive cardiac diagnostics Will add sliding scale in addition. We will check hemoglobin A1c. History of Present Illness Chief Complaint: chest pain Primary Care Provider: ANTONIO Mcgee This is a 45-year-old male with past medical history of type 1 diabetes mellitus, status post left BKA, status post renal transplant, end-stage renal disease for initiation of peritoneal dialysis the presents today complaining of chest pain. Patient is pleasant a good historian. Patient has been following with from nephrology. He is status post a distant renal transplant that has mostly failed the patient is minimally oliguric at this point. Patient had decided to initiate peritoneal dialysis and had a catheter placed in his left abdominal wall. He went to dialysis clinic today for initiation of peritoneal dialysis. However, he had noted to the staff there that he had some chest pain and was subsequently sent to the emergency room for further evaluation. On my questioning, patient tells me that he has had some dyspnea on exertion that has worsened over the past 3 days. He associates this with some mild to moderate chest tightness without radiation. It worsens with any ambulation or effort and seems to improve after resting for approximately 30 minutes. He also notes some mild cramping in his right lower extremity with a minimal amount of swelling. He has not noticed any change in his urination but tells me he needs to take large doses of diuretics for any urine output whatsoever. Of note, patient does have a history of coronary artery disease and was found to have multivessel disease in the recent past. I do see documentation that he had been cathed and stented in the LAD [place] [address] Jurado. He tells me he has had recent stress testing but cannot recall exactly when. Allergies Allergy/AdvReac Type Severity Reaction Status Date / Time PORK INSULIN Allergy Intermediate Hives Uncoded 02/02/21 16:11 Home Medications Medication Instructions Recorded Confirmed Type glucagon (human recombinant) 1 mg 1 mg IM DIRECTED PRN 10/05/18 03/07/21 History solution for injection (Glucagon Emergency Kit) allopurinol 300 mg tablet 300 mg PO HS #90 tab 03/30/20 03/07/21 Rx atorvastatin 80 mg tablet 80 mg PO HS #90 tab 03/30/20 03/07/21 Rx doxycycline hyclate 50 mg capsule 50 mg PO BID #180 cap 03/30/20 03/07/21 Rx pantoprazole 40 mg tablet,delayed 40 mg PO HS #90 tab 03/30/20 03/07/21 Rx release prednisone 5 mg tablet 5 mg PO HS #90 tab 03/30/20 03/07/21 Rx sirolimus 2 mg tablet 4 mg PO HS #180 tab 03/30/20 03/07/21 Rx ferrous sulfate 325 mg (65 mg 325 mg PO DAILY #30 tab 04/04/20 03/07/21 Rx iron) tablet metoprolol succinate 25 mg See Rx Instructions .ROUTE 07/13/20 03/07/21 Rx tablet,extended release 24 hr .COMPLEX #90 tab aspirin 81 mg tablet,delayed 81 mg PO HS #30 tab 09/25/20 03/07/21 Rx release clopidogrel 75 mg tablet (Plavix) 75 mg PO HS #30 tab 09/25/20 03/07/21 Rx sevelamer carbonate 800 mg tablet 800 mg PO TID #270 tab 10/02/20 03/07/21 Rx (Renvela) pregabalin 75 mg capsule (Lyrica) 150 mg PO HS #90 cap 10/05/20 03/07/21 Rx calcitriol 0.5 mcg capsule 0.5 mcg PO Q OTHER DAY 10/10/20 03/07/21 History clindamycin phosphate 1 % topical 1 applic TOPICAL BID PRN 10/10/20 03/07/21 History solution furosemide 40 mg tablet (Lasix) 80 mg PO DAILY #60 tab 11/16/20 03/07/21 Rx potassium chloride 10 mEq 20 meq PO DAILY #180 tab 11/16/20 03/07/21 Rx tablet,extended release ergocalciferol (vitamin D2) 1,250 1,250 mcg PO .weekly #24 cap 11/22/20 03/07/21 Rx mcg (50,000 unit) capsule diclofenac sodium 1 % topical gel 2 g TOPICAL QID #100 g 12/04/20 03/07/21 Rx sertraline 100 mg tablet 100 mg PO HS #30 tab 12/20/20 03/07/21 Rx ropinirole 0.5 mg tablet 0.5 mg PO DAILY #90 tab 01/18/21 03/07/21 Rx insulin aspart U-100 100 unit/mL 50 unit SUBCUT DAILY 90 Days #50 ml 02/09/21 03/07/21 Rx subcutaneous solution (Novolog U-100 Insulin aspart) Past Med/Surg History Medical History (Updated 03/07/21 @ 15:09 by Victor Hugo Rico DO) Acute respiratory failure with hypoxia AMI anterolateral wall CAD (coronary artery disease) CAD in [place] artery Chewing tobacco nicotine dependence Deep vein thrombosis ARM (10 YEARS AGO) AT [facility] Fistula LEFT ARM (NON FUNCTIONING) Gout Mitral regurgitation MILD-MOD Myocardial Infarction 2016 Peripheral neuropathy Sensory problems with limbs Sleep apnea CPAP STEMI (ST elevation myocardial infarction) Surgical History H/O eye surgery LEFT/RT LASER SURGERY History of below knee amputation LEFT REVISION (5 TOTAL) [place] of cardiac cath 2016 - [place] - [facility] - 2 STENTS - FOLLOWS W/ DR. JURADO History of heart artery stent 2016 (2 STENTS PLACED) AT [facility] History of right hip replacement 03/17/2019 [facility] History of total replacement of right hip Kidney transplant recipient 2002 Status post left hip replacement Family History Grandfather Family history of diabetes mellitus Other No family history of adverse response to anesthesia Social History Smoking Status: Never smoker Second Hand Exposure: No; Hx Alcohol Use: Yes Alcohol type: beer Alcohol Intake Frequency: 2-3 x/Week Hx Substance Use: No Preferred Language: Macedonian Communication Ability: Effective Ese Teacher Required: No Beliefs That Will Affect Care: None marital status: Current Living Situation: Spouse current occupational status: employed 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[employer] [employer] How many Children do You have: 2 How many Children do You have Comment: 1 is Feels Safe at Home: Yes Assistive Devices: Prosthesis and Wheelchair Review of Systems Constitutional: no fever, no chills, no weakness, no weight loss and no weight gain Eyes: as per Subjective / HPI Respiratory: + dyspnea and + dyspnea on exertion; no cough, no chest congestion, no pain on inspiration and no wheezing Cardiovascular: + chest pain, + dyspnea and + dyspnea on exertion; no radiating jaw, neck or arm pain, no dyspnea at rest and no orthopnea Gastrointestinal: no abdominal pain, no nausea, no vomiting, no constipation and no diarrhea/loose stools Musculoskeletal: no back pain, no neck pain, no joint pain, no stiffness and no myalgia Integumentary: no rash Neurologic: no gait abnormality, no unsteadiness, no falls and no generalized weakness Physical Exam Constitutional: cooperative; no acute distress Neck: trachea midline, no thyromegaly Respiratory: normal respiratory effort Auscultation: + diminished lung sounds and + rales (very fine at bases); no crackles, no rhonchi and no wheezes Cardiovascular: Rate/Rhythm: regular rate and regular rhythm Heart Sounds: normal S1 and normal S2 Gastrointestinal (Abdomen): Inspection/Auscultation: abdomen normal to inspection Percussion/Palpation: abdomen soft; abdomen nontender, no guarding, abdomen not rigid and no hepatosplenomegaly Skin: no rashes, warm and dry Results & Data Results & Data ([facility]) Vital Signs (Past 12 Hours) Vital Signs Temp Pulse Resp BP Pulse Ox 03/07/21 13:40 76 20 95 03/07/21 13:31 77 20 191/125 H 93 03/07/21 13:30 77 19 93 03/07/21 13:20 78 18 94 03/07/21 13:10 79 22 91 03/07/21 13:01 78 22 159/110 H 91 03/07/21 13:00 79 27 H 93 03/07/21 12:50 79 22 92 03/07/21 12:40 80 21 91 03/07/21 12:30 78 20 183/120 H 92 03/07/21 12:20 79 22 94 03/07/21 12:10 81 20 95 03/07/21 12:01 81 21 170/131 H 96 03/07/21 12:00 80 27 H 94 03/07/21 11:50 80 23 93 03/07/21 11:40 80 26 H 96 03/07/21 11:31 78 22 173/94 H 94 03/07/21 11:30 79 22 94 03/07/21 11:20 79 24 96 03/07/21 11:11 81 18 95 03/07/21 11:00 37 C 80 16 142/83 H 94 Laboratory Results Laboratory Results WBC 8.66 K/uL (4.8-10.8) 03/07/21 11:18 RBC 3.83 M/uL (4.7-6.1) L 03/07/21 11:18 Hgb 9.9 g/dL (14.0-18.0) L 03/07/21 11:18 Hct 32.5 % (42-52) L 03/07/21 11:18 MCV 84.9 fL (80-100) 03/07/21 11:18 MCH 25.8 pg (25-34) 03/07/21 11:18 MCHC 30.5 g/dL (32-36) L 03/07/21 11:18 RDW Std Deviation 55.7 fL (36.4-46.3) H 03/07/21 11:18 RDW Coeff of Michelle 18.0 % (11.5-14.5) H 03/07/21 11:18 Plt Count 121 K/uL (130-400) L 03/07/21 11:18 Immature Gran % (Auto) 0.3 % 03/07/21 11:18 Neut % (Auto) 79.3 % 03/07/21 11:18 Lymph % (Auto) 14.2 % 03/07/21 11:18 [place] % (Auto) 5.9 % 03/07/21 11:18 Eos % (Auto) 0.2 % 03/07/21 11:18 Baso % (Auto) 0.1 % 03/07/21 11:18 Neut # (Auto) 6.86 K/uL (1.4-6.5) H 03/07/21 11:18 Lymph # (Auto) 1.23 K/uL (1.2-3.4) 03/07/21 11:18 [place] # (Auto) 0.51 K/uL (0.11-0.59) 03/07/21 11:18 Eos # (Auto) 0.02 K/uL (0-0.5) 03/07/21 11:18 Baso # (Auto) 0.01 K/uL (0-0.2) 03/07/21 11:18 Immature Gran # (Auto) 0.03 K/uL (0.00-0.02) H 03/07/21 11:18 Platelet Estimate Decreased (Normal) L 03/07/21 11:18 Polychromasia 1+ 03/07/21 11:18 Acanthocytes (Spur) 1+ 03/07/21 11:18 PT 10.8 Seconds (9.0-12.0) 03/07/21 11:18 INR 1.1 (0.9-1.1) 03/07/21 11:18 APTT 27.9 Seconds (21.0-31.0) 03/07/21 11:18 PTT Ratio 1.1 03/07/21 11:18 Sodium 135 mmol/L (136-145) L 03/07/21 11:18 Potassium 3.4 mmol/L (3.5-5.1) L 03/07/21 11:18 Chloride 97 mmol/L (98-107) L 03/07/21 11:18 Carbon Dioxide 25 mmol/L (21-32) 03/07/21 11:18 Anion Gap 13.0 (3-11) H 03/07/21 11:18 BUN 103 mg/dl (7-18) H 03/07/21 11:18 Creatinine 5.00 mg/dl (0.6-1.4) H* 03/07/21 11:18 Est Cr Clr Drug Dosing 17.7 ml/min 03/07/21 11:18 Est GFR ( Amer) 15.0 ml/min 03/07/21 11:18 Est GFR (Non-Af Amer) 12.9 ml/min 03/07/21 11:18 BUN/Creatinine Ratio 20.2 (10-20) H 03/07/21 11:18 Glucose 182 mg/dl (70-99) H 03/07/21 11:18 Calcium 9.0 mg/dl (8.5-10.1) 03/07/21 11:18 Magnesium 2.2 mg/dl (1.8-2.4) 03/07/21 11:18 Total Bilirubin 0.5 mg/dl (0.2-1) 03/07/21 11:18 AST 62 U/L (15-37) H 03/07/21 11:18 ALT 38 (12-78) 03/07/21 11:18 Alkaline Phosphatase 179 U/L (45-117) H D 03/07/21 11:18 Troponin I 0.049 ng/ml (0-0.045) H* 03/07/21 11:18 Total Protein 6.9 gm/dl (6.4-8.2) 03/07/21 11:18 Albumin 2.8 gm/dl (3.4-5.0) L 03/07/21 11:18 Globulin 4.1 gm/dl (2.5-4.0) H 03/07/21 11:18 Albumin/Globulin Ratio 0.7 (0.9-2) L 03/07/21 11:18 Hep Bs Antibody Non-Immune 03/07/21 11:18 Hep Bs Antibody, Quant 4.98 mIU/mL (>or=10mIU/mL Immune) L 03/07/21 11:18 Impressions Chest X-Ray 03/07/21 11:25 XR chest 1V portable HISTORY: 45 years-old Male SOB acute shortness of breath COMPARISON: Chest radiographs 01/11/2021 TECHNIQUE: Portable AP view of the chest FINDINGS: Cardiac silhouette is enlarged. Pulmonary vascular congestion with interstitial coarsening. No pneumothorax or large pleural effusion. With mild blunting of the costophrenic angles. No lobar airspace consolidation. The bones of the chest appear grossly intact. Subacute to chronic appearing displaced fracture of the posterior left fourth rib is unchanged. IMPRESSION: 1. Cardiomegaly with pulmonary vascular congestion and interstitial coarsening suggestive of pulmonary edema versus interstitial pneumonitis. 2. Probable trace pleural effusions. ACT 112: Negative or not required by law. The above report was generated using voice recognition software. It may contain grammatical, syntax or spelling errors. Electronically signed by: Marquise Babb M.D. 03/07/2021 11:44 AM PG Care Time/CCT Total # of Minutes Spent Total Time Spent with Patient: Total time spent is greater than 50% in coordination of care (as documented) at patient's floor/unit and/or counseling patient: Coding Level of Care Code INT OBSERVATION CARE 70M LVL 3 Diagnoses Chest pain R07.9 Chest pain type: unspecified Chronic renal insufficiency, stage IV (severe) N18.4 Hyperlipidemia E78.5 Hypertension I10 GERD (gastroesophageal reflux disease) K21.9 CAD (coronary artery disease) I25.10 Uncontrolled type 1 diabetes mellitus with diabetic neuropathy, with long-term current use of insulin E10.40; E10.65 (1) Chest pain Chest pain type: unspecified Qualified Code(s): R07.9 - Chest pain, unspecifi ed
--- NOTE | 2021-03-07 16:02 | Nephrology Consultation ---
Date of Consultation March 07, 2021 Assessment & Plan (1) ESRD (end stage renal disease): * LRRT allograft has failed. Cr has risen from 4 to 5.0. Patient presents to EMD w/ mild azotemia and symptoms of volume overload. AVF is not yet mature for use. Patient wishes to pursue NCCPD. Will start NCCPD therapy as inpatient and attempt UF with 4 exchanges/night, 1500 cc fill volume, 2.5% dianeal, 2 hour dwell time. score caller paleology teacher notified and orders have been placed in EMR * PRP in am * Monitor I&O's, weight (2) Kidney transplant failure: * Continue Prednisone and Sirolimus (3) Anemia: * Will check iron stores * Continue oral iron therapy (4) Restless leg: * Continue oral iron and Ropinirole (5) CAD (coronary artery disease): * Currently no angina * Admission ECG without ischemic change * Initial troponin mildly elevated c/w ESRD * Admit to telemetry bed History of Present Illness Reason for Consultation: ESRD History of Present Illness Mr. Dalton is a 45 year old white male who is seen at the request of Dr. Rico to provide dialysis and assist in patient's medical care. Medical records in the EMR were reviewed today and are summarized as follows: Mr. 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 In 2000 Mr. Dalton progressed to ESRD and was started on IHD. In 2001 he received a LRRT from his mother. Post transplant Cr stabilized at 1.6 - 1.8. He did suffer an acute rejection episode 2002 that was managed w/ steroid therapy. He has since suffered a slow progressive decline in kidney function. Baseline creatinine had risen to 4.0. 01/19/21 Mr. Dalton underwent L RC AVF creation and insertion of PD catheter in anticipation of needing dialysis. He presented today to the outpatient unit to start PD but complained of exertional dyspnea and was referred to the EMD for further evaluation. Mr. Dalton was found to have marked hypertension, mildly elevated troponin, no acute ischemic change on ECG and moderate pulmonary vascular congestion on CXR. His RC AVF is not yet developed or ready for use. He has been admitted to the hospitalist service for ongoing medical management. Allergies Allergy/AdvReac Type Severity Reaction Status Date / Time PORK INSULIN Allergy Intermediate Hives Uncoded 02/02/21 16:11 Home Medications Medication Instructions Recorded Confirmed Type glucagon (human recombinant) 1 mg 1 mg IM DIRECTED PRN 10/05/18 03/07/21 History solution for injection (Glucagon Emergency Kit) allopurinol 300 mg tablet 300 mg PO HS #90 tab 03/30/20 03/07/21 Rx atorvastatin 80 mg tablet 80 mg PO HS #90 tab 03/30/20 03/07/21 Rx doxycycline hyclate 50 mg capsule 50 mg PO BID #180 cap 03/30/20 03/07/21 Rx pantoprazole 40 mg tablet,delayed 40 mg PO HS #90 tab 03/30/20 03/07/21 Rx release prednisone 5 mg tablet 5 mg PO HS #90 tab 03/30/20 03/07/21 Rx sirolimus 2 mg tablet 4 mg PO HS #180 tab 03/30/20 03/07/21 Rx ferrous sulfate 325 mg (65 mg 325 mg PO DAILY #30 tab 04/04/20 03/07/21 Rx iron) tablet metoprolol succinate 25 mg See Rx Instructions .ROUTE 07/13/20 03/07/21 Rx tablet,extended release 24 hr .COMPLEX #90 tab aspirin 81 mg tablet,delayed 81 mg PO HS #30 tab 09/25/20 03/07/21 Rx release clopidogrel 75 mg tablet (Plavix) 75 mg PO HS #30 tab 09/25/20 03/07/21 Rx sevelamer carbonate 800 mg tablet 800 mg PO TID #270 tab 10/02/20 03/07/21 Rx (Renvela) pregabalin 75 mg capsule (Lyrica) 150 mg PO HS #90 cap 10/05/20 03/07/21 Rx calcitriol 0.5 mcg capsule 0.5 mcg PO Q OTHER DAY 10/10/20 03/07/21 History clindamycin phosphate 1 % topical 1 applic TOPICAL BID PRN 10/10/20 03/07/21 History solution furosemide 40 mg tablet (Lasix) 80 mg PO DAILY #60 tab 11/16/20 03/07/21 Rx potassium chloride 10 mEq 20 meq PO DAILY #180 tab 11/16/20 03/07/21 Rx tablet,extended release ergocalciferol (vitamin D2) 1,250 1,250 mcg PO .weekly #24 cap 11/22/20 03/07/21 Rx mcg (50,000 unit) capsule diclofenac sodium 1 % topical gel 2 g TOPICAL QID #100 g 12/04/20 03/07/21 Rx sertraline 100 mg tablet 100 mg PO HS #30 tab 12/20/20 03/07/21 Rx ropinirole 0.5 mg tablet 0.5 mg PO DAILY #90 tab 01/18/21 03/07/21 Rx insulin aspart U-100 100 unit/mL 50 unit SUBCUT DAILY 90 Days #50 ml 02/09/21 03/07/21 Rx subcutaneous solution (Novolog U-100 Insulin aspart) Patient History Medical History (Updated 03/07/21 @ 15:51 by Paras Oneil MD) Acute respiratory failure with hypoxia AMI anterolateral wall CAD (coronary artery disease) CAD in [place] artery Chewing tobacco nicotine dependence Deep vein thrombosis ARM (10 YEARS AGO) AT [facility] Fistula LEFT ARM (NON FUNCTIONING) Gout Mitral regurgitation MILD-MOD Myocardial Infarction 2016 Peripheral neuropathy Sensory problems with limbs Sleep apnea CPAP STEMI (ST elevation myocardial infarction) Surgical History H/O eye surgery LEFT/RT LASER SURGERY History of below knee amputation LEFT REVISION (5 TOTAL) History of cardiac cath 2016 - [place] - [facility] - 2 STENTS - FOLLOWS W/ DR. JURADO History of heart artery stent 2016 (2 STENTS PLACED) AT [facility] History of right hip replacement 03/17/2019 [facility] History of total replacement of right hip Kidney transplant recipient 2002 Status post left hip replacement Family History Grandfather Family history of diabetes mellitus Other No family history of adverse response to anesthesia Social History Smoking Status: Never smoker Second Hand Exposure: No; Hx Alcohol Use: Yes Alcohol type: beer Alcohol Intake Frequency: 2-3 x/Week Hx Substance Use: No Preferred Language: Tajik Communication Ability: Effective Speech Lang Path Required: No Beliefs That Will Affect Care: None marital status: Current Living Situation: Spouse current occupational status: employed 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 - [employer] How many Children do You have: 2 How many Children do You have Comment: 1 is Feels Safe at Home: Yes Assistive Devices: Prosthesis and Wheelchair Review of Systems Constitutional: no fever Eyes: no problem reported Ear, Nose, Mouth, Throat: no problem reported Respiratory: + dyspnea on exertion; no cough Cardiovascular: no chest pain, no palpitations and no edema Gastrointestinal: no abdominal pain, no nausea, no vomiting and no diarrhea/loose stools Genitourinary: no dysuria, no urinary hesitancy or no hematuria Musculoskeletal: no back pain Integumentary: no rash Neurologic: no falls, no dizziness and no confusion Physical Exam Constitutional: not in distress Breathing comfortably flat in bed on RA Eyes: PERRL, conjunctivae normal, anicteric sclerae ENMT: external ear and nose normal, oropharynx normal Neck: trachea midline, no thyromegaly Respiratory: normal respiratory effort, lungs clear to auscultation Cardiovascular: RRR, no murmur, no edema L RC AVF + bruit. Venous limb palpable only 1 cm proximal to anastamotic site Gastrointestinal (Abdomen): normal bowel sounds, soft, nontender, no hepatosplenomegaly RLQ renal allograft is nontender PD exit site w/ clean dry dressing applied Musculoskeletal: L BKA Skin: no rashes, warm and dry Neurologic: awake; not confused Results & Data ([facility]) Vital Signs (Past 12 Hours) Vital Signs Temp Pulse Resp BP Pulse Ox 03/07/21 15:20 75 23 03/07/21 15:10 75 20 95 03/07/21 15:01 74 23 180/120 H 96 03/07/21 15:00 74 21 96 03/07/21 14:50 75 21 97 03/07/21 14:40 75 21 96 03/07/21 14:31 76 14 141/118 H 91 03/07/21 14:30 77 21 97 03/07/21 14:20 77 18 95 03/07/21 14:10 77 20 95 03/07/21 14:01 77 10 L 155/107 H 96 03/07/21 14:00 77 17 93 03/07/21 13:50 76 18 97 03/07/21 13:40 76 20 95 03/07/21 13:31 77 20 191/125 H 93 03/07/21 13:30 77 19 93 03/07/21 13:20 78 18 94 03/07/21 13:10 79 22 91 03/07/21 13:01 78 22 159/110 H 91 03/07/21 13:00 79 27 H 93 03/07/21 12:50 79 22 92 03/07/21 12:40 80 21 91 03/07/21 12:30 78 20 183/120 H 92 03/07/21 12:20 79 22 94 03/07/21 12:10 81 20 95 03/07/21 12:01 81 21 170/131 H 96 03/07/21 12:00 80 27 H 94 03/07/21 11:50 80 23 93 03/07/21 11:40 80 26 H 96 03/07/21 11:31 78 22 173/94 H 94 03/07/21 11:30 79 22 94 03/07/21 11:20 79 24 96 03/07/21 11:11 81 18 95 03/07/21 11:00 37 C 80 16 142/83 H 94 PG Care Time/CCT Total # of Minutes Spent Total Time Spent with Patient: Total time spent is greater than 50% in coordination of care (as documented) at patient's floor/unit and/or counseling patient: Coding Level of Care Code 19150 Inpt Consult Level 5 Diagnoses ESRD (end stage renal disease) N18.6 Kidney transplant failure T86.12 Anemia D64.9 Restless leg G25.81 CAD (coronary artery disease) I25.10
[2021-03-07] MEDS ORDERED: GLUCOSE 10 TABS/TUBE PO PRN (16:43)
[2021-03-07] MEDS ORDERED: DEXTROSE 50% 50 ML SYRINGE IV PRN (16:43)
[2021-03-07] MEDS ORDERED: CARBOHYDRATES FOR HYPOGLYCEMIA PO PRN (16:43)
[2021-03-07] MEDS ORDERED: ONDANSETRON INJ 2 MG/ML 2 ML VIAL IV PRN (16:43)
[2021-03-07] MEDS ORDERED: GLUCOSE 40% GEL 15 GM TUBE PO PRN (16:43)
[2021-03-07] MEDS ORDERED: GLUCAGON FOR INJ 1 MG VIAL SQ PRN (16:43)
[2021-03-07] MEDS ORDERED: ACETAMINOPHEN 325 MG TAB PO PRN (16:43)
[2021-03-07] MEDS ORDERED: INSULIN ASPART PER UNIT SC SCH (16:43)
[2021-03-07] MEDS ORDERED: CALCITRIOL 0.25 MCG CAPSULE PO SCH (17:30)
[2021-03-07] MEDS ORDERED: INSULIN ASPART 100 UNITS/ML VIAL SC PRN (18:30)
[2021-03-07] MEDS ORDERED: METOPROLOL SUCC 25MG EXT REL TAB PO SCH (18:30)
[2021-03-07] MEDS ORDERED: PREGABALIN 150 MG CAP PO SCH (21:00)
[2021-03-07] MEDS ORDERED: SIROLIMUS 0.5 MG TABLET PO SCH (21:00)
[2021-03-07] MEDS ORDERED: predniSONE 5 MG TAB PO SCH (21:00)
[2021-03-07] MEDS ORDERED: SERTRALINE HCL 100 MG TABLET PO SCH (21:00)
[2021-03-07] MEDS ORDERED: allopurinoL 300 MG TAB PO SCH (21:00)
[2021-03-07] MEDS ORDERED: CLOPIDOGREL BISULFATE 75 MG TAB PO SCH (21:00)
[2021-03-07] MEDS ORDERED: PANTOprazole 40 MG TAB PO SCH (21:00)
[2021-03-07] MEDS ORDERED: ATORVASTATIN 40 MG TAB PO SCH (21:00)
[2021-03-07] MEDS ORDERED: ASPIRIN 81 MG ECTAB PO SCH (21:00)
[2021-03-07] MEDS: SEVELAMER HCL 800 MG TABLET PO SCH (22:07)
[2021-03-07] MEDS: DOXYCYCLINE HYCLATE 50 MG CAP PO SCH (22:08)
[2021-03-07] MEDS: HEPARIN SOD 5,000 UNIT/0.5 ML VIAL SQ SCH (22:09)
[2021-03-07] MEDS: FUROSEMIDE 40 MG/4 ML VIAL IV SCH (22:19)
[2021-03-07] MEDS: NovoLOG INSULIN PUMP SCH (22:19)
[2021-03-08] MEDS: FUROSEMIDE 40 MG/4 ML VIAL IV SCH (06:09)
[2021-03-08] MEDS: SEVELAMER HCL 800 MG TABLET PO SCH ×2 (07:59→12:13)
[2021-03-08] MEDS: DOXYCYCLINE HYCLATE 50 MG CAP PO SCH (07:59)
[2021-03-08] MEDS: NovoLOG INSULIN PUMP SCH ×2 (08:00→12:13)
[2021-03-08] MEDS: HEPARIN SOD 5,000 UNIT/0.5 ML VIAL SQ SCH (08:00)
[2021-03-08 08:11] LABS: Mean Corpuscular Hgb Conc 31.2 g/dL (32-36); Nucleated RBC # (auto) 0.02 K/uL (0-0); Nucleated RBC % (auto) 0.2 %
[2021-03-08 08:15] LABS: Hematocrit (blood only) 32.7 % (42-52); Hemoglobin 10.2 g/dL (14.0-18.0); Mean Corpuscular Hemoglobin 26.4 pg (25-34); Mean Corpuscular Volume 84.7 fL (80-100); RDW Coefficient of Variation 17.8 % (11.5-14.5); RDW Standard Deviation 55.5 fL (36.4-46.3); Red Blood Count 3.86 M/uL (4.7-6.1); White Blood Count 8.84 K/uL (4.8-10.8)
[2021-03-08 08:42] LABS: Acanthocytes 1+; Basophils # (auto) 0.01 K/uL (0-0.2); Basophils % (auto) 0.1 %; Eosinophils # (auto) 0.19 K/uL (0-0.5); Eosinophils % (auto) 2.1 %; Immature Granulocytes # (auto) 0.05 K/uL (0.00-0.02); Immature Granulocytes % (auto) 0.6 %; Lymphocytes # (auto) 1.37 K/uL (1.2-3.4); Lymphocytes % (auto) 15.5 %; Monocytes # (auto) 0.59 K/uL (0.11-0.59); Monocytes % (auto) 6.7 %; Neutrophils # (auto) 6.63 K/uL (1.4-6.5); Platelet Count 137 K/uL (130-400); Platelet Estimate Decreased (Normal); Polychromasia 1+
[2021-03-08] MEDS ORDERED: POTASSIUM CHLORIDE CRTAB 20 MEQ TABCR PO SCH (09:00)
[2021-03-08] MEDS ORDERED: FERROUS SULFATE 325 MG TAB PO SCH (09:00)
[2021-03-08] MEDS ORDERED: rOPINIRole HCL 0.25 MG TABLET PO SCH (09:00)
--- NOTE | 2021-03-08 09:07 | Nephrology Progress Note ---
Date of Service March 08, 2021 Assessment & Plan (1) ESRD (end stage renal disease): Plan: * LRRT allograft has failed. Cr has risen from 4 to 5.0. Patient presents to EMD w/ mild azotemia and symptoms of volume overload. AVF is not yet mature for use. Patient has been started on NCCPD therapy and tolerated 1st treatment last night without complication * PRP in am * Monitor I&O's, weight * Will provide PD this evening if patient remains hospitalized * If discharge is anticipated, please have patient call [facility] HD unit [phone] to arrange peritoneal dialysis follow up w/ home therapy nurse (2) Kidney transplant failure: Plan: * Continue Prednisone and Sirolimus (3) Anemia: Plan: * Iron saturation 17% w/ ferritin 478 * Continue oral iron therapy (4) Restless leg: Plan: * Continue oral iron and Ropinirole (5) CAD (coronary artery disease): Plan: * Currently no angina * Admission ECG without ischemic change * Troponin has normalized, telemetry has remained NSR * Await results of echocardiogram and small business consultant Admission and Anticipated Discharge Date Admission Date: March 07, 2021 Subjective Mr. Dalton was evaluated in his hospital room this morning. He denies CP overnight and was able to ambulate with his prosthetic leg in his room this morning without dyspnea. Telemetry has remained NSR since admission. NCCPD was performed last evening using 2.5% dialysate. Net 150 cc UF obtained. There were no complications Review of Systems Constitutional: no fever Eyes: no problem reported Ear, Nose, Mouth, Throat: no problem reported Respiratory: + dyspnea on exertion; no cough Cardiovascular: no chest pain, no palpitations and no edema Gastrointestinal: no abdominal pain, no nausea, no vomiting and no diarrhea/loose stools Genitourinary: no dysuria, no urinary hesitancy or no hematuria Musculoskeletal: no back pain Integumentary: no rash Neurologic: no falls, no dizziness and no confusion Physical Exam Constitutional: not in distress Eyes: PERRL, conjunctivae normal, anicteric sclerae ENMT: external ear and nose normal, oropharynx normal Neck: trachea midline, no thyromegaly Respiratory: normal respiratory effort, lungs clear to auscultation Cardiovascular: RRR, no murmur, no edema Gastrointestinal (Abdomen): normal bowel sounds, soft, nontender, no hepatosplenomegaly PD exit site w/ clean, dry dressing Skin: no rashes, warm and dry Neurologic: awake; not confused Results & Data ([facility]) Vital Signs (Past 12 Hours) Vital Signs Temp Pulse Pulse Resp BP Pulse Ox 03/08/21 08:19 37.2 C 77 18 03/08/21 08:02 37.2 C 77 18 169/95 H 93 03/08/21 04:01 36.7 C 77 18 163/103 H 94 03/08/21 00:02 37.0 C 76 18 139/89 93 03/07/21 23:15 76 22 93 03/07/21 21:10 80 Laboratory Results Laboratory Tests 03/07/21 03/07/21 03/08/21 17:16 23:05 07:47 WBC Hgb Hct Plt Count Sodium 138 Potassium 3.2 L Chloride 100 Carbon Dioxide 28 BUN 95 H Creatinine 5.07 H* Transferrin % Sat 17 L Ferritin 478.3 H Troponin I 0.033 0.032 0.035 03/08/21 07:47 WBC 8.84 Hgb 10.2 L Hct 32.7 L Plt Count 137 Sodium Potassium Chloride Carbon Dioxide BUN Creatinine Transferrin % Sat Ferritin Troponin I PG Care Time/CCT Total # of Minutes Spent Total Time Spent with Patient: Total time spent is greater than 50% in coordination of care (as documented) at patient's floor/unit and/or counseling patient: Coding Level of Care Code 62076 Subseq Hosp Care Lvl 3 Diagnoses ESRD (end stage renal disease) N18.6 Kidney transplant failure T86.12 Anemia D64.9 Restless leg G25.81 CAD (coronary artery disease) I25.10
[2021-03-08 09:12] LABS: BUN Creatinine Ratio 18.8 (10-20); Calcium 9.1 mg/dl (8.5-10.1); Creatinine Clr Calc Pharmacy 16.9 ml/min; Est GFR (African American) 14.7 ml/min; Est GFR (Non-African American) 12.7 ml/min; Ferritin 478.3 ng/ml (8-388); Potassium 3.2 mmol/L (3.5-5.1); Troponin I 0.035 ng/ml (0-0.045)
--- NOTE | 2021-03-08 10:05 | Cardiology Consultation ---
Date of Consultation March 08, 2021 Assessment & Plan (1) Chest pain: His symptoms appear secondary to hypervolemia in the setting of known coronary artery disease. His presentation is not consistent with an ACS. Will obtain an echocardiogram to reevaluate his LV wall motion and systolic function. Would also recommend patient ambulate around the hallways. If echo unremarkable, and he is asymptomatic with ambulation, no additional cardiovascular testing or intervention recommended at this time. If he does have further symptoms concerning for angina, would then consider cardiac catheterization. Continue risk factor modification for known coronary artery disease. (2) CAD (coronary artery disease): He has known coronary artery disease, and there are tentative plans for repeat cardiac catheterization as an outpatient at [facility] in anticipation of renal transplant. If he has further symptoms concerning for angina, would recommend more urgent cardiac catheterization while in-patient, as noted above. Otherwise, continue current medical therapy including aspirin, Plavix, atorvastatin, and metoprolol. Repeat echo ordered. (3) CHF (congestive heart failure): Volume status appears favorable currently. Will defer ongoing management of volume status to Nephrology. Patient discussed with Dr. Jimenez. Supervising Physician Co-Signing Physician Notes Pt seen and examined today. Agree with note from Ms. Hill with additional: Has been SOB the last few days including orthopnea. When dyspnea exertion, would develop chest tightness, different than prior angina. After PD overnight, breathing at baseline; feels much improved. No dyspnea on exertion in hospital room. No further chest tightness. Exam notable for: COR: regular. 1/6 systolic ejection murmur. PULM: clear Ext: Left upper ext AV fistula with palpable thrill and audible bruit. A/P: 1. Shortness of breath: Likely due to hypervolemia. Resolved with dialysis. 2. Chest pain: Likely due to hypervolemia. Resolved with volume removal. Ambulate in hallway. Has underlying CAD but did not present with ACS. 3. CAD s/p prior PCI: Cath planned with [facility]. Given no urgent indication for cath, he plans on having cath done at [facility] as previously recommended by [facility] cardiology as part of renal transplant eval. Cont ASA, statin, betablocker. 4. Return for recurrent symptoms. Follow up with primary lokie engineer. History of Present Illness Reason for Consultation: Chest pain Requesting Physician: Dr. Rico History of Present Illness Mr. Dalton is a 45-year-old male with a history of type 1 diabetes mellitus with diabetic peripheral neuropathy, chronic kidney disease s/p renal transplant, chronic diastolic CHF, hypertension, dyslipidemia, GERD, obstructive sleep apnea on CPAP, s/p L BKA, moderate mitral regurgitation, and CAD s/p an acute anterolateral STEMI s/p 1st diagonal drug eluting stent 03/25/2015. Following renal transplant, he has had progressive decline in kidney function .In January 2021, he underwent L RC AVF creation and insertion of PD catheter in anticipation of needing dialysis. He presented to the outpatient unit to start PD yesterday and was referred to the ER due to complaints of shortness of breath and chest tightness. The patient states that on Friday, he began to note intermittent shortness of breath with exertion. He had associated chest tightness with the shortness of breath. Symptoms would resolve within 5 minutes of rest, but he states that he could not lie down, he had to sit straight up for symptomatic relief. He also noted increased shortness of breath sleeping at night. He underwent peritoneal dialysis in the hospital yesterday, and he has been feeling better today, although, he has only been ambulating around his room. He feels that his pants fit better today, and his left leg prosthesis is also fitting better. He had not been weighing himself at home. He states that up until Friday, he was feeling well. He remains active at his job walking around [facility]. He has also been remodeling his bathroom while off over the holidays. He did not note any chest discomfort or shortness of breath with these activities until he became symptomatic Friday. He states that his prior angina felt like heartburn, and he had pain radiating down his left arm. He denies any recurrence of these symptoms following PCI. He denies palpitations. He has noted positional lightheadedness over the last couple of days. He denies syncope or near syncope. He denies abnormal bleeding. He has been following with Cardiology at [facility] as an outpatient in anticipation of another renal transplant. He states that he will likely be undergoing a cardiac catheterization at some point in the near future for work-up prior to transplant, but the procedure has not yet been scheduled. Family history: Noncontributory given his own disease. Social history: He works at [employer]. No smoking. Social alcohol, up to 3 alcoholic beverages a week. Patient has had the following Cardiac Procedures/Studies: ECHOCARDIOGRAM 10/11/2019: -- Normal LV size with low normal systolic function. -- LVEF 50-55% with hypokinesis of the distal anterolateral wall. -- Mild LVH. -- At least moderate mitral regurgitation. -- Small pericardial effusion without evidence of tamponade physiology (stable compared to August 2019 echo). -- Mild pulmonary hypertension. RVSP 48 mmHg. DOBUTAMINE STRESS ECHO 12/17/2018: -- No evidence of myocardial ischemia at 86% MPHR. -- Normal LV systolic function. -- LVEF 50% to 55% with severe hypokinesis of the distal anterolateral wall. ECHOCARDIOGRAM 04/02/2017: -- Normal LV size and systolic function. -- LVEF 55% to 60% with moderate hypokinesis of the mid to apical anterior and lateral dominguez. -- Mild concentric LVH. -- RV not well visualized, but appears to function normally. -- Mild to moderate mitral regurgitation. -- Aortic valve sclerosis without stenosis. -- Normal estimated RA and PA pressures. CARDIAC CATHETERIZATION 03/25/2015: -- LMCA -- Angiographically normal. -- LAD -- Diffuse 10% to 20% proximal disease, sequential 30%, 50%, 50%, 50% midvessel stenosis, 0% to 10% distal stenosis. -- D1 -- 100% Proximal stenosis, 0% to 10%.distal disease. -- LCx -- No significant disease. -- OM1 -- Sequential 70% and 50% proximal stenoses. -- L GLENNA -- Normal. -- RCA -- 30% Proximal stenosis, 50% mid vessel stenosis, and 0% to 10% diffuse disease in distal vessel. -- R PDA -- 20% - 30% Diffuse mid vessel disease. -- AM -- 0%-10% Proximal stenosis. PCI 03/25/2015: -- Resolute 2.25 x 22 mm drug-eluting stent deployed in the 1st Diagonal. Allergies Allergy/AdvReac Type Severity Reaction Status Date / Time PORK INSULIN Allergy Intermediate Hives Uncoded 02/02/21 16:11 Home Medications Medication Instructions Recorded Confirmed Type glucagon (human recombinant) 1 mg 1 mg IM DIRECTED PRN 10/05/18 03/07/21 History solution for injection (Glucagon Emergency Kit) allopurinol 300 mg tablet 300 mg PO HS #90 tab 03/30/20 03/07/21 Rx atorvastatin 80 mg tablet 80 mg PO HS #90 tab 03/30/20 03/07/21 Rx doxycycline hyclate 50 mg capsule 50 mg PO BID #180 cap 03/30/20 03/07/21 Rx pantoprazole 40 mg tablet,delayed 40 mg PO HS #90 tab 03/30/20 03/07/21 Rx release prednisone 5 mg tablet 5 mg PO HS #90 tab 03/30/20 03/07/21 Rx sirolimus 2 mg tablet 4 mg PO HS #180 tab 03/30/20 03/07/21 Rx ferrous sulfate 325 mg (65 mg 325 mg PO DAILY #30 tab 04/04/20 03/07/21 Rx iron) tablet metoprolol succinate 25 mg See Rx Instructions .ROUTE 07/13/20 03/07/21 Rx tablet,extended release 24 hr .COMPLEX #90 tab aspirin 81 mg tablet,delayed 81 mg PO HS #30 tab 09/25/20 03/07/21 Rx release clopidogrel 75 mg tablet (Plavix) 75 mg PO HS #30 tab 09/25/20 03/07/21 Rx sevelamer carbonate 800 mg tablet 800 mg PO TID #270 tab 10/02/20 03/07/21 Rx (Renvela) pregabalin 75 mg capsule (Lyrica) 150 mg PO HS #90 cap 10/05/20 03/07/21 Rx calcitriol 0.5 mcg capsule 0.5 mcg PO Q OTHER DAY 10/10/20 03/07/21 History clindamycin phosphate 1 % topical 1 applic TOPICAL BID PRN 10/10/20 03/07/21 History solution furosemide 40 mg tablet (Lasix) 80 mg PO DAILY #60 tab 11/16/20 03/07/21 Rx potassium chloride 10 mEq 20 meq PO DAILY #180 tab 11/16/20 03/07/21 Rx tablet,extended release ergocalciferol (vitamin D2) 1,250 1,250 mcg PO .weekly #24 cap 11/22/20 03/07/21 Rx mcg (50,000 unit) capsule diclofenac sodium 1 % topical gel 2 g TOPICAL QID #100 g 12/04/20 03/07/21 Rx sertraline 100 mg tablet 100 mg PO HS #30 tab 12/20/20 03/07/21 Rx ropinirole 0.5 mg tablet 0.5 mg PO DAILY #90 tab 01/18/21 03/07/21 Rx insulin aspart U-100 100 unit/mL 50 unit SUBCUT DAILY 90 Days #50 ml 02/09/21 03/07/21 Rx subcutaneous solution (Novolog U-100 Insulin aspart) Patient History Medical History (Updated 03/08/21 @ 14:52 by Venus Fox PA-C) Acute respiratory failure with hypoxia AMI anterolateral wall CAD (coronary artery disease) CAD in [place] artery Chewing tobacco nicotine dependence Deep vein thrombosis ARM (10 YEARS AGO) AT [facility] Fistula LEFT ARM (NON FUNCTIONING) Gout Mitral regurgitation MILD-MOD Myocardial Infarction 2016 Peripheral neuropathy Sensory problems with limbs Sleep apnea CPAP STEMI (ST elevation myocardial infarction) Surgical History H/O eye surgery LEFT/RT LASER SURGERY History of below knee amputation LEFT REVISION (5 TOTAL) History of cardiac cath 2016 - [facility] - 2 STENTS - FOLLOWS W/ DR. JURADO History of heart artery stent 2016 (2 STENTS PLACED) AT [facility] History of right hip replacement 03/17/2019 [facility] History of total replacement of right hip Kidney transplant recipient 2002 Status post left hip replacement Family History Grandfather Family history of diabetes mellitus Other No family history of adverse response to anesthesia Social History Smoking Status: Never smoker Second Hand Exposure: No; Hx Alcohol Use: Yes Alcohol type: beer Alcohol Intake Frequency: 2-3 x/Week Hx Substance Use: No Preferred Language: Polish Communication Ability: Effective Plant Operations Vice President Required: Yes Beliefs That Will Affect Care: None marital status: Current Living Situation: Family current occupational status: employed 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 EOMs intact. Sclera non-icteric. Face is symmetric. No perioral cyanosis. Mucous membranes moist Neck: Supple, no appreciable JVD but difficult exam Pulmonary: Normal respiratory effort, clear to auscultation throughout Cardiac: Regular rate and rhythm, normal S1 and S2, no gallops, no rubs, no murmurs Extremities: L BKA. +AV fistula. No edema. No clubbing or cyanosis. Abdomen: Normal bowel sounds, soft, non-tender, no hepatosplenomegaly Skin: Normal skin color, turgor, and pigmentation. No rash or skin lesions Neurological: Oriented to person, place, and time Results & Data ([facility]) Vital Signs (Past 12 Hours) Vital Signs Temp Pulse Pulse Resp BP Pulse Ox 03/08/21 08:19 99.0 F 77 18 03/08/21 08:02 99.0 F 77 18 169/95 H 93 03/08/21 04:01 98.1 F 77 18 163/103 H 94 03/08/21 00:02 98.6 F 76 18 139/89 93 03/07/21 23:15 76 22 93 Laboratory Results Laboratory Results WBC 8.84 K/uL (4.8-10.8) 03/08/21 07:47 RBC 3.86 M/uL (4.7-6.1) L 03/08/21 07:47 Hgb 10.2 g/dL (14.0-18.0) L 03/08/21 07:47 Hct 32.7 % (42-52) L 03/08/21 07:47 MCV 84.7 fL (80-100) 03/08/21 07:47 MCH 26.4 pg (25-34) 03/08/21 07:47 MCHC 31.2 g/dL (32-36) L 03/08/21 07:47 RDW Std Deviation 55.5 fL (36.4-46.3) H 03/08/21 07:47 RDW Coeff of Michelle 17.8 % (11.5-14.5) H 03/08/21 07:47 Plt Count 137 K/uL (130-400) 03/08/21 07:47 Immature Gran % (Auto) 0.6 % 03/08/21 07:47 Neut % (Auto) 75.0 % 03/08/21 07:47 Lymph % (Auto) 15.5 % 03/08/21 07:47 Meriwether % (Auto) 6.7 % 03/08/21 07:47 Eos % (Auto) 2.1 % 03/08/21 07:47 Baso % (Auto) 0.1 % 03/08/21 07:47 Neut # (Auto) 6.63 K/uL (1.4-6.5) H 03/08/21 07:47 Lymph # (Auto) 1.37 K/uL (1.2-3.4) 03/08/21 07:47 Meriwether # (Auto) 0.59 K/uL (0.11-0.59) 03/08/21 07:47 Eos # (Auto) 0.19 K/uL (0-0.5) 03/08/21 07:47 Baso # (Auto) 0.01 K/uL (0-0.2) 03/08/21 07:47 Immature Gran # (Auto) 0.05 K/uL (0.00-0.02) H 03/08/21 07:47 Absolute Nucleated RBC 0.02 K/uL (0-0) H 03/08/21 07:47 Nucleated RBC % (auto) 0.2 % 03/08/21 07:47 Platelet Estimate Decreased (Normal) L 03/08/21 07:47 Polychromasia 1+ 03/08/21 07:47 Acanthocytes (Spur) 1+ 03/08/21 07:47 PT 10.8 Seconds (9.0-12.0) 03/07/21 11:18 INR 1.1 (0.9-1.1) 03/07/21 11:18 APTT 27.9 Seconds (21.0-31.0) 03/07/21 11:18 PTT Ratio 1.1 03/07/21 11:18 Sodium 138 mmol/L (136-145) 03/08/21 07:47 Potassium 3.2 mmol/L (3.5-5.1) L 03/08/21 07:47 Chloride 100 mmol/L (98-107) 03/08/21 07:47 Carbon Dioxide 28 mmol/L (21-32) 03/08/21 07:47 Anion Gap 10.0 (3-11) 03/08/21 07:47 BUN 95 mg/dl (7-18) H 03/08/21 07:47 Creatinine 5.07 mg/dl (0.6-1.4) H* 03/08/21 07:47 Est Cr Clr Drug Dosing 16.9 ml/min 03/08/21 07:47 Est GFR ( Amer) 14.7 ml/min 03/08/21 07:47 Est GFR (Non-Af Amer) 12.7 ml/min 03/08/21 07:47 BUN/Creatinine Ratio 18.8 (10-20) 03/08/21 07:47 Glucose 133 mg/dl (70-99) H 03/08/21 07:47 POC Glucose 117 mg/dl (70-99) H 03/07/21 20:15 Calcium 9.1 mg/dl (8.5-10.1) 03/08/21 07:47 Magnesium 2.0 mg/dl (1.8-2.4) 03/08/21 07:47 Iron 39 mcg/dl (35-175) 03/08/21 07:47 Transferrin 161 mg/dl (200-360) L 03/08/21 07:47 Transferrin % Sat 17 % (20-50) L 03/08/21 07:47 Ferritin 478.3 ng/ml (8-388) H 03/08/21 07:47 Total Bilirubin 0.5 mg/dl (0.2-1) 03/07/21 11:18 AST 62 U/L (15-37) H 03/07/21 11:18 ALT 38 (12-78) 03/07/21 11:18 Alkaline Phosphatase 179 U/L (45-117) H D 03/07/21 11:18 Troponin I 0.035 ng/ml (0-0.045) 03/08/21 07:47 Total Protein 6.9 gm/dl (6.4-8.2) 03/07/21 11:18 Albumin 2.8 gm/dl (3.4-5.0) L 03/07/21 11:18 Globulin 4.1 gm/dl (2.5-4.0) H 03/07/21 11:18 Albumin/Globulin Ratio 0.7 (0.9-2) L 03/07/21 11:18 Triglycerides 251 mg/dl (0-150) H 03/08/21 07:47 Cholesterol 224 mg/dl (0-200) H 03/08/21 07:47 LDL Cholesterol, Calc 115 mg/dl 03/08/21 07:47 VLDL Cholesterol, Calc 50 mg/dl 03/08/21 07:47 HDL Cholesterol 59 mg/dl 03/08/21 07:47 Cholesterol/HDL Ratio 4 03/08/21 07:47 Hep Bs Antigen Neg (Neg) 03/07/21 11:18 Hep Bs Antibody Non-Immune 03/07/21 11:18 Hep Bs Antibody, Quant 4.98 mIU/mL (>or=10mIU/mL Immune) L 03/07/21 11:18 SARS-CoV-2, RNA, NAAT NEGATIVE (NEGATIVE) 03/07/21 22:30 Diagnostic Findings Chest X-Ray 03/07/21 11:25 IMPRESSION: 1. Cardiomegaly with pulmonary vascular congestion and interstitial coarsening suggestive of pulmonary edema versus interstitial pneumonitis. 2. Probable trace pleural effusions. ECG 03/07/20: Normal sinus rhythm at 81 bpm. Possible left atrial enlargement. Anteroseptal infarct. Nonspecific T wave abnormality. ECG today shows normal sinus rhythm at 81 bpm. Possible left atrial enlargement. Septal infarct. Nonspecific ST-T wave abnormality. Telemetry: Sinus rhythm PG Care Time/CCT Total # of Minutes Spent Total Time Spent with Patient: Total time spent is greater than 50% in coordination of care (as documented) at patient's floor/unit and/or counseling patient: Coding Level of Care Code 05752 Inpt Consult Level 4 Diagnoses Chest pain R07.9 Chest pain type: unspecified CAD (coronary artery disease) I25.10 CHF (congestive heart failure) I50.9 (1) Chest pain Chest pain type: unspecified Qualified Code(s): R07.9 - Chest pain, unspecified
[2021-03-08 10:57] LABS: Estimated Average Glucose 171 mg/dl; Hemoglobin A1C 7.6 % (4.5-5.6)
--- NOTE | 2021-03-08 11:30 | XCELERA ---
[id number] \\[id number]
[2021-03-08 12:24] VITALS: BP 158/83; PULSE 73; TEMP 97.5; O2SAT 94
[2021-03-08] MEDS ORDERED: POTASSIUM CHLORIDE CRTAB 20 MEQ TABCR PO STA (12:37)
--- NOTE | 2021-03-08 14:44 | Discharge Summary ---
Date of Service March 08, 2021 Admission HPI Per Admitting Provider This is a 45-year-old male with past medical history of type 1 diabetes mellitus, status post left BKA, status post renal transplant, end-stage renal disease for initiation of peritoneal dialysis the presents today complaining of chest pain. Patient is pleasant a good historian. Patient has been following with from nephrology. He is status post a distant renal transplant that has mostly failed the patient is minimally oliguric at this point. Patient had decided to initiate peritoneal dialysis and had a catheter placed in his left abdominal wall. He went to dialysis clinic today for initiation of peritoneal dialysis. However, he had noted to the staff there that he had some chest pain and was subsequently sent to the emergency room for further evaluation. On my questioning, patient tells me that he has had some dyspnea on exertion that has worsened over the past 3 days. He associates this with some mild to moderate chest tightness without radiation. It worsens with any ambulation or effort and seems to improve after resting for approximately 30 minutes. He also notes some mild cramping in his right lower extremity with a minimal amount of swelling. He has not noticed any change in his urination but tells me he needs to take large doses of diuretics for any urine output whatsoever. Of note, patient does have a history of coronary artery disease and was found to have multivessel disease in the recent past. I do see documentation that he had been cathed and stented in the [place] [address] Hadley. He tells me he has had recent stress testing but cannot recall exactly when. Principal Diagnosis 1. Chest painacute coronary syndrome has ruled out. Likely secondary to hypertensive urgency 2. Hypertensive urgencyimproved. Still with accelerated hypertension 3. Accelerated hypertensionpermissive to account for addition of peritoneal dialysis 4. Shortness of breath/volume overloadimproved following first session of peritoneal dialysis 5. Hypokalemiareplaced 6. Anemialikely of chronic disease from CKDstable 7. Mildly elevated troponinlikely secondary to end-stage renal disease rather than from ACS Discharge Exam General: Resting comfortably in his hospital bed. Appears chronically but not acutely ill. NAD. HEENT: Head is AT/NC buccal mucosa is moist and pink Neck: No JVD. Negative hepatojugular reflex Cardiac: RRR with 2/6 DEMOND Lungs: Breathing nonlabored. Normal respiratory effort. CTA W/R/R Abdomen: Normoactive X4. Soft and nontender in all quadrants. Extremities: left leg artificial. Right leg without edema Neuro: A&O X4 cranial nerves II through XII are grossly intact no focal neuro deficits Skin:multiple tattoos Psych: Appropriate affect pleasant and cooperative Discharge Data Allergies Allergy/AdvReac Type Severity Reaction Status Date / Time PORK INSULIN Allergy Intermediate Hives Uncoded 02/02/21 16:11 Consultations 03/07/21 12:55 ED Decision to Admit Stat 03/07/21 16:43 Consult Cardiology Routine Assessment & Plan (1) Chest pain: His symptoms appear secondary to hypervolemia in the setting of known coronary artery disease. His presentation is not consistent with an ACS. Will obtain an echocardiogram to reevaluate his LV wall motion and systolic function. Would also recommend patient ambulate around the hallways. If echo unremarkable, and he is asymptomatic with ambulation, no additional cardiovascular testing or intervention recommended at this time. If he does have further symptoms concerning for angina, would then consider cardiac catheterization. Continue risk factor modification for known coronary artery disease. (2) CAD (coronary artery disease): He has known coronary artery disease, and there are tentative plans for repeat cardiac catheterization as an outpatient at [facility] in anticipation of renal transplant. If he has further symptoms concerning for angina, would recommend more urgent cardiac catheterization while in-patient, as noted above. Otherwise, continue current medical therapy including aspirin, Plavix, atorvastatin, and metoprolol. Repeat echo ordered. (3) CHF (congestive heart failure): Volume status appears favorable currently. Will defer ongoing management of volume status to Nephrology. Consult Nephrology Routine Assessment & Plan (1) ESRD (end stage renal disease): Plan: * LRRT allograft has failed. Cr has risen from 4 to 5.0. Patient presents to EMD w/ mild azotemia and symptoms of volume overload. AVF is not yet mature for use. Patient has been started on NCCPD therapy and tolerated 1st treatment last night without complication * PRP in am * Monitor I&O's, weight * Will provide PD this evening if patient remains hospitalized * If discharge is anticipated, please have patient call [facility] HD unit [phone] to arrange peritoneal dialysis follow up w/ home therapy nurse (2) Kidney transplant failure: Plan: * Continue Prednisone and Sirolimus (3) Anemia: Plan: * Iron saturation 17% w/ ferritin 478 * Continue oral iron therapy (4) Restless leg: Plan: * Continue oral iron and Ropinirole (5) CAD (coronary artery disease): Plan: * Currently no angina * Admission ECG without ischemic change * Troponin has normalized, telemetry has remained NSR * Await results of echocardiogram and rn lactation consultant Procedures Performed Echocardiogram: 1. Normal LV size with mildly reduced systolic function of 45 to 50%. Apical hypokinesis. Severe hypokinesis to akinesis of the inferior base. Mild concentric LV hypertrophy 2. Mild left atrial dilatation 3. Mild aortic stenosis 4. Moderate mitral regurgitation 5. Mild to moderate tricuspid regurgitation 6. Moderate pulmonary hypertension with estimated RVSP 50 mmHg 7. Compared to prior study done 04/03/2020, RVSP is now moderately elevated. LV wall motion and systolic function appears similar. Aortic transvalvular gradient and velocity have mildly increased. Hospital Course (1) Chest pain: 45 y/o WM with an underlying PMHx of DM-I, ESRD, CAD, HLD, DIANE-CPAP dependent, and diabetic neuropathy presented with CP and SOB - noted to have hypertensive urgency in the ED (191/125) - EKG nonacute - troponin mildly elevated upfront at 0.049 but remained stable --> 0.049 --> 0.032 (this was thought to be related to his renal failure rather than from ACS) - He has associated SOB and findings consistent with volum overload - was to start peritoneal dialysis as an OP today (which was done lastnight-- UF for 4 exchanges as guided by Nephrology). - patient has since been CP free and denies SOB - has ruled out for ACS - Echo repeated with RWMA but this is unchanged from prior Echo. does have increased pumlmonary HTN - seen by cardiology who reports no added cardiac w/u needed at this time as patient has been pain free with ambulation and symptoms improved with added BP control and fluids mgmt. (2) Volume overload: - again, was to start Peritoneal Dialysis as an OP but with symptoms as outlined above, sent to the ED by Dr. Myrick (established [facility]) - has AVF to LUE- not mature - peritoneal catheter in place for PD - 1st treatment performed lastnight (4 exchanges) without complications - currently asymptomatic (denies SOB. he is not hypoxic or requiring O2. no crackles or edema on exam) - case D/W Nephrology who feels that patient can be discharged to home to follow up in the clinic to continued dialysis with plan to transition this to be done at home. Patient to call clinica as soon as leaving the hospital per NEphrology- he is aware (3) Hypertension: - Presented with a blood pressure of 181/125 consistent with hypertensive urgency - Had associated chest pain and shortness of breath - Patient is s/p 1 session peritoneal dialysis. Follow-up blood pressure 158/83 and he denies any reports of chest pain - Discussed with nephrology and plan for now is to allow for some permissive hypertension as he will continue dialysis as an outpatient. This will likely continue to drop his blood pressure. Will avoid completely normalizing blood pressure currently with medications as this may prohibit subsequent dialysis sessions - continue prehospital antihypertensive agents (4) Chronic renal insufficiency, stage IV (severe): - lasix given IV while in house for added diuresis - symptoms currently manages following dialysis - resume lasix po as SURGICAL SERVICES TECH (5) Hyperlipidemia: - continue Atorvastatin 80 mg daily as ordered (6) GERD (gastroesophageal reflux disease): Continue pantoprazole as ordered (7) CAD (coronary artery disease): As noted above (8) Uncontrolled type 1 diabetes mellitus with diabetic neuropathy, with long- term current use of insulin: - continue insulin pump as SURGICAL SERVICES TECH - A1C with acceptable control (7.3%) Total Time Total Time Spent Total Time Spent (In Minutes): 60 min including time spent with patient, D/W Nephrology and Attending provider Discharge Plan Discharge Items Patient Disposition: Home - Self-Care Reason For Visit: CHEST PAIN Discharge Diagnosis: 1. Chest Pain- resolved. Likely related to Hypertensive Urgency 2. Hypertensive Urgency-- improved but still accelerated 3. Shortness of breath/volume overload (improved status post dialysis) 4. End Stage Renal disease- new to dialysis Activity: Resume your previous activity Non-emergency contact: Primary Care Provider and [facility] Call non-emergency contact if: you have any medication questions Follow-up/Referrals: Korina Lima CRNP [Primary Care Provider] - 03/15/21 11:15 am (Please follow up with ANTONIO Martin on 03/15/21 at 11:15 am. Please arrive to the office at 11:00 am for your appointment. If you are unable to keep this appointment, please call the office to reschedule at [phone].) Diet: Carb Count or DM1 and Dialysis Renal Addtl Attending Provider Instructions: - There was no change in your medications - your chest pain and shortness of breath was likely related to the extra fluid on board and elevated blood pressure (that have both improved following dialysis) - as per Dr. Oneil (Nephrology)-- you are to call your Dialysis nurse/coordinator as soon as you get home from the hospital to discuss follow up dialysis at the clinic and transition to home - your blood pressure remains slightly elevated but is better. Nephrology would prefer to allow for some permissive elevation in your blood pressure for now to see how this will respond to dialysis (as we do not want to drop it to normal and then you have low blood pressure which prohibit the ability to do the dialysis) - if it likely that your chest pain was related to your elevated blood pressure and the excess fluid on board (which again, have improved with dialysis) - follow up with your PCP: 7-10 days - follow up with Nephrology (call them today to make sure that you have an appointment scheduled) - return to the ED for new or worsening symptoms Pending Studies at Discharge: No Stand-Alone Forms: My [facility] Medications and DC Order Prescriptions: Continued allopurinol 300 mg tablet 300 mg PO HS Qty: 90 RF: 3 atorvastatin 80 mg tablet 80 mg PO HS Qty: 90 RF: 3 doxycycline hyclate 50 mg capsule 50 mg PO BID Qty: 180 RF: 3 pantoprazole 40 mg tablet,delayed release (DR/EC) 40 mg PO HS Qty: 90 RF: 3 prednisone 5 mg tablet 5 mg PO HS Qty: 90 RF: 3 sirolimus 2 mg tablet 4 mg PO HS Qty: 180 RF: 3 metoprolol succinate 25 mg tablet extended release 24 hr See Rx Instructions .ROUTE .COMPLEX Qty: 90 RF: 11 aspirin 81 mg tablet,delayed release (DR/EC) 81 mg PO HS Qty: 30 RF: 5 clopidogrel [Plavix] 75 mg tablet 75 mg PO HS Qty: 30 RF: 5 ergocalciferol (vitamin D2) 1,250 mcg (50,000 unit) capsule 1,250 mcg PO .weekly Qty: 24 RF: 0 sertraline 100 mg tablet 100 mg PO HS Qty: 30 RF: 6 ropinirole 0.5 mg tablet 0.5 mg PO DAILY Qty: 90 RF: 3 insulin aspart U-100 [Novolog U-100 Insulin aspart] 100 unit/mL solution 50 unit subcut DAILY 90 Days Qty: 50 RF: 1 diclofenac sodium 1 % gel 2 g topical QID Qty: 100 RF: 0 furosemide [Lasix] 40 mg tablet 80 mg PO DAILY Qty: 60 RF: 5 Hold Instructions: hold now potassium chloride 10 mEq tablet extended release 20 meq PO DAILY Qty: 180 RF: 3 sevelamer carbonate [Renvela] 800 mg tablet 800 mg PO TID Qty: 270 RF: 2 pregabalin [Lyrica] 75 mg capsule 150 mg PO HS Qty: 90 RF: 5 Glucagon Emergency Kit (human) 1 mg recon soln 1 mg IM DIRECTED PRN (Reason: LOW BLOOD SUGAR) RF: 0 ferrous sulfate 325 mg (65 mg iron) tablet 325 mg PO DAILY Qty: 30 RF: 2 Hold Instructions: Home Medication placed on hold at Doctor's office calcitriol 0.5 mcg capsule 0.5 mcg PO Q OTHER DAY RF: 0 clindamycin phosphate 1 % solution 1 applic topical BID PRN (Reason: Rash) RF: 0 Discharge Orders: Discharge Order (Routine); Ordered 03/08/21 Ordered By: Venus Fxo Admission Data Admit Date/Time: 03/07/21 15:20 Attending Provider: Yoselyn Samuel Admit Provider: Victor Hugo Rico Primary Care Provider: Korina Lima Other Providers: Kobe Espitia Christophe R. ; Edi Amador Other Interventions: Discharge Summary Assessment (RN) Last Done: 03/08/21 13:22 Supervising Physician Co-Signing Physician Notes PA Supervision Note: I did not personally see or examine the patient today as he was discharged by RN prior to me seeing him despite being asked not to, but I verified all landin points of PITO Jameson's assessment and plan with the following exceptions/additions: None Coding Level of Care Code D/C DAY MANAGEMENT >30 MINS Diagnoses Chest pain R07.9 Chest pain type: unspecified Chronic renal insufficiency, stage IV (severe) N18.4 Hyperlipidemia E78.5 Hypertension I10 GERD (gastroesophageal reflux disease) K21.9 CAD (coronary artery disease) I25.10 Uncontrolled type 1 diabetes mellitus with diabetic neuropathy, with long-term current use of insulin E10.40; E10.65 Volume overload E87.70
[2021-03-08] MEDS ORDERED: METOPROLOL SUCC 25MG EXT REL TAB PO SCH (21:00)
--- NOTE | 2021-03-08 22:18 | Electrocardiogram Report ---
Test Reason : Blood Pressure : / mmHG Vent. Rate : 081 BPM Atrial Rate : 081 BPM P-R Int : 186 ms QRS Dur : 102 ms QT Int : 398 ms P-R-T Axes : 050 028 226 degrees QTc Int : 462 ms Normal sinus rhythm Possible Left atrial enlargement Septal infarct (cited on or before 02-DEC-2019) Abnormal ECG When compared with ECG of 07-MAR-2021 11:11, Questionable change in initial forces of Anterior leads Confirmed by Harrison Jimenez ([id number]) on 03/08/2021 10:18:39 PM Referred By: Edi Amador Confirmed By:Harrison Jimenez
[2021-03-11] MEDS ORDERED: ERGOCALCIFEROL 50,000 UNITS 1250 MCG CAP PO SCH (09:00)
== END 2021-03-08 13:47 | disposition home or self-care (01) | DRG 640 ==
LOC: ED 10:53 → EDINP 15:20 → SUATTDRO 15:20 → EDINP 16:38 → 2S 20:15
DX: Z79.899 Other long term (current) drug therapy; G47.33 Obstructive sleep apnea (adult) (pediatric); I16.0 Hypertensive urgency; Z89.512 Acquired absence of left leg below knee; Z99.2 Dependence on renal dialysis; I50.9 Heart failure, unspecified; R07.9 Chest pain, unspecified; Z88.8 Allergy status to other drugs, medicaments and biological substances; Z79.82 Long term (current) use of aspirin; I25.10 Atherosclerotic heart disease of native coronary artery without angina pectoris; Z79.52 Long term (current) use of systemic steroids; Z79.4 Long term (current) use of insulin; E10.40 Type 1 diabetes mellitus with diabetic neuropathy, unspecified; D63.1 Anemia in chronic kidney disease; Z79.890 Hormone replacement therapy; I13.2 Hypertensive heart and chronic kidney disease with heart failure and with stage 5 chronic kidney disease, or end stage renal disease; Z20.822 Contact with and (suspected) exposure to COVID-19; N18.6 End stage renal disease; T86.12 Kidney transplant failure; K21.9 Gastro-esophageal reflux disease without esophagitis; G25.81 Restless legs syndrome; R77.8 Other specified abnormalities of plasma proteins; Z79.02 Long term (current) use of antithrombotics/antiplatelets; E78.5 Hyperlipidemia, unspecified; Z95.5 Presence of coronary angioplasty implant and graft; I25.2 Old myocardial infarction; E87.70 Fluid overload, unspecified; E87.6 Hypokalemia; E10.22 Type 1 diabetes mellitus with diabetic chronic kidney disease

== ENCOUNTER 2021-07-08 00:39 | Inpatient (IN) ==
[2021-07-08] MEDS ORDERED: MoRPHine SULFATE 4 MG/ML 1 ML CARP\\VIAL ONE (00:53)
[2021-07-08] MEDS ORDERED: ONDANSETRON INJ 2 MG/ML 2 ML VIAL ONE (00:53)
[2021-07-08] MEDS ORDERED: NITROGLYCERIN SL 0.4 MG/TAB TAB SL STA (00:54)
[2021-07-08] MEDS ORDERED: MoRPHine SULFATE 4 MG/ML 1 ML CARP\\VIAL IV STA (00:54)
[2021-07-08] MEDS ORDERED: ONDANSETRON INJ 2 MG/ML 2 ML VIAL IV STA (00:54)
--- NOTE | 2021-07-08 00:56 | Emergency Department Note ---
Impression & Plan Non-ST elevation (NSTEMI) myocardial infarction ADMIT ED Provider Note HPI: The patient is a 45-year-old gentleman with history of coronary artery disease status post stent in 2016, type 1 diabetes, history of renal failure status post kidney transplant, presents the emergency department chief complaint of left- sided chest pain. Patient states his pain began 45 minutes prior to arrival. Patient states he developed some left-sided chest pain that at times was rela tively severe, he states the pain is still present but somewhat improved on my assessment. He is hemodynamically stable on arrival, denies any shortness of breath, denies any nausea or vomiting. ROS: -Cardio: Chest pain *10 point review systems was conducted and is otherwise negative unless stated above *Outpatient medications and allergy history reviewed PE: General: Alert, NAD HEENT: Normocephalic, atraumatic Eyes: Extraocular eye movement is intact, no scleral erythema Pulmonary: Clear to auscultation bilaterally, no wheezing Cardiovascular: Regular rate and rhythm, palpable thrill to fistula in the distal left upper extremity GI: Abdomen is soft, nontender : No suprapubic tenderness MSK: No evidence of trauma or malformation of the extremities, no edema, Skin: No evidence of rash Neuro: Alert, no focal deficits 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 Patient was gi kulwinder morphine and Zofran for pain. EKG was immediately performed and was reviewed by myself, no evidence of ST elevation myocardial infarction is noted. Lab work shows evidence of an elevated high-sensitivity troponin, patient was given aspirin and started on a heparin drip, repeat EKG was performed at this time when he high sensitivity troponin resulted as elevated, [place] 0158 does not show any evidence of ST elevation myocardial infarction, in addition, at this time patient is chest pain-free following a dose of morphine and sublingual nitroglycerin. Lab work otherwise shows evidence of acute on chronic renal failure, patient is on dialysis, hyperglycemia is noted in the 400s without any evidence of DKA. Heparin drip was ordered, patient was given aspirin, I discussed the above findings with the on-call hospitalist, Dr. Lima, who accepted the patient to a telemetry bed for further management and cardiology consultation. Patient is in agreement to the above plan and he was admitted in stable condition. Critical care time: 40 minutes -Time spent at the bedside and management of non-ST elevation myocardial infarction with elevated troponin requiring heparin drip initiation, interpretation of diagnostic studies and EKG, discussion with other physicians and arrangement of admission Diagnosis: 1. Chest pain, acute 2. NSTEMI 3. Hyperglycemia 4. Elevated creatinine, history of end-stage renal disease on hemodialysis Disposition: Admission Nestor Waddell DO Emergency Medicine Past Med/Surg History Medical History (Updated 07/08/21 @ 03:08 by Nestor Waddell DO) Acute respiratory failure with hypoxia AMI anterolateral wall CAD (coronary artery disease) CAD in pal[place] artery Chewing tobacco nicotine dependence Deep vein thrombosis ARM (10 YEARS AGO) AT [facility] Fistula LEFT ARM (NON FUNCTIONING) Gout Mitral regurgitation MILD-MOD Myocardial Infarction 2016 Peripheral neuropathy Sensory problems with limbs Sleep apnea CPAP STEMI (ST elevation myocardial infarction) Surgical History H/O eye surgery LEFT/RT LASER SURGERY History of below knee amputation LEFT REVISION (5 TOTAL) History of cardiac cath 2016 - ID - [facility] - 2 STENTS - FOLLOWS W/ DR. JURADO History of heart artery stent 2016 (2 STENTS PLACED) AT [facility] History of right hip replacement 03/17/2019 [facility] History of total replacement of right hip Kidney transplant recipient 2002 Status post left hip replacement Family History Grandfather Family history of diabetes mellitus Other No family history of adverse response to anesthesia Social History Smoking Status: Never smoker Second Hand Exposure: No; Hx Alcohol Use: Yes Alcohol type: beer Alcohol Intake Frequency: 2-3 x/Week Hx Substance Use: No Preferred Language: Ivorian Communication Ability: Effective Business Development Manager Required: Yes Beliefs That Will Affect Care: None marital status: Current Living Situation: Family current occupational status: employed 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 - [employer] How many Children do You have: 2 How many Children do You have Comment: 1 is Feels Safe at Home: Yes Assistive Devices: Prosthesis and Wheelchair Allergies Allergies Allergy/AdvReac Type Severity Reaction Status Date / Time PORK INSULIN Allergy Intermediate Hives Uncoded 07/08/21 01:38 Home Meds Home Medications Medication Instructions Recorded Confirmed glucagon (human recombinant) 1 mg 1 mg IM DIRECTED PRN 10/05/18 07/08/21 solution for injection (Glucagon Emergency Kit) calcitriol 0.5 mcg capsule 0.5 mcg PO Q OTHER DAY 10/10/20 07/08/21 clindamycin phosphate 1 % topical 1 applic TOPICAL BID PRN 10/10/20 07/08/21 solution pantoprazole 40 mg tablet,delayed 40 mg PO HS tab 05/29/21 07/08/21 release diclofenac sodium 1 % topical gel 2 g TOPICAL QID PRN 07/08/21 07/08/21 metoprolol succinate 25 mg 75 mg PO DAILY 07/08/21 07/08/21 tablet,extended release 24 hr Previous Rx's Medication Instructions Recorded allopurinol 300 mg tablet 300 mg PO HS #90 tab 03/30/20 prednisone 5 mg tablet 5 mg PO HS #90 tab 03/30/20 aspirin 81 mg tablet,delayed 81 mg PO HS #30 tab 09/25/20 release sevelamer carbonate 800 mg tablet 800 mg PO TID #270 tab 10/02/20 (Renvela) potassium chloride 10 mEq 20 meq PO DAILY #180 tab 11/16/20 tablet,extended release ergocalciferol (vitamin D2) 1,250 1,250 mcg PO .weekly #24 cap 11/22/20 mcg (50,000 unit) capsule sertraline 100 mg tablet 100 mg PO HS #30 tab 12/20/20 clopidogrel 75 mg tablet (Plavix) 75 mg PO HS #30 tab 03/20/21 atorvastatin 80 mg tablet 80 mg PO HS #90 tab 04/18/21 furosemide 40 mg tablet (Lasix) 80 mg PO DAILY #60 tab 04/19/21 pregabalin 75 mg capsule (Lyrica) 150 mg PO HS #90 cap 04/26/21 ropinirole 0.5 mg tablet 0.5 mg PO DAILY #90 tab 04/26/21 Dexcom G6 Sensor (blood-glucose #9 ea NS 05/15/21 sensor) Dexcom G6 Transmitter #1 ea NS 05/15/21 (blood-glucose transmitter) sirolimus 2 mg tablet 4 mg PO HS #180 tab 05/24/21 insulin aspart U-100 100 unit/mL 60 unit SUBCUT DAILY 90 Days #60 ml 05/29/21 subcutaneous solution (Novolog U-100 Insulin aspart) insulin syringe-needle U-100 0.5 #200 ea 05/29/21 mL 29 gauge x 1/2" (BD Insulin Syringe) Results & Data (ED) Vital Signs Vital Signs - 24 hr 07/08/21 00:40 07/08/21 00:54 07/08/21 00:57 Temperature 36.8 C Temperature Source Temporal Artery Scan Pulse Rate 106 H 105 H 104 H Pulse Rate from SpO2 Sensor 106 H 104 H Respiratory Rate 18 22 16 Respiratory Effort / Characteristics Non-Labored Spontaneous Respiratory Depth Normal Respiratory Pattern Regular Blood Pressure 116/80 102/69 Blood Pressure Mean 92 80 Blood Pressure Position Sitting Pulse Oximetry 98 96 99 Oxygen Delivery Method Room Air Sepsis Recent Fever Within 48 Hours No Sepsis New/Unexplained Change in Mental Status No Sepsis Action Taken by Nursing No Action Required 07/08/21 01:00 07/08/21 01:02 07/08/21 01:15 Temperature Temperature Source Pulse Rate 101 H 99 H Pulse Rate from SpO2 Sensor 101 H 98 H Respiratory Rate 15 14 Respiratory Effort / Characteristics Respiratory Depth Respiratory Pattern Blood Pressure Blood Pressure Mean Blood Pressure Position Pulse Oximetry 92 100 93 Oxygen Delivery Method Room Air Sepsis Recent Fever Within 48 Hours Sepsis New/Unexplained Change in Mental Status Sepsis Action Taken by Nursing 07/08/21 01:30 07/08/21 01:45 07/08/21 01:50 Temperature Temperature Source Pulse Rate 95 H 88 84 Pulse Rate from SpO2 Sensor 95 H 88 84 Respiratory Rate 10 L 19 14 Respiratory Effort / Characteristics Respiratory Depth Respiratory Pattern Blood Pressure 102/71 82/63 L Blood Pressure Mean 81 69 Blood Pressure Position Pulse Oximetry 97 95 94 Oxygen Delivery Method Sepsis Recent Fever Within 48 Hours Sepsis New/Unexplained Change in Mental Status Sepsis Action Taken by Nursing 07/08/21 02:00 07/08/21 02:15 07/08/21 02:30 Temperature Temperature Source Pulse Rate 88 86 88 Pulse Rate from SpO2 Sensor 88 86 89 Respiratory Rate 15 16 18 Respiratory Effort / Characteristics Respiratory Depth Respiratory Pattern Blood Pressure 95/65 L Blood Pressure Mean 75 Blood Pressure Position Pulse Oximetry 94 96 94 Oxygen Delivery Method Sepsis Recent Fever Within 48 Hours Sepsis New/Unexplained Change in Mental Status Sepsis Action Taken by Nursing 07/08/21 02:45 Temperature Temperature Source Pulse Rate 88 Pulse Rate from SpO2 Sensor 88 Respiratory Rate 20 Respiratory Effort / Characteristics Respiratory Depth Respiratory Pattern Blood Pressure Blood Pressure Mean Blood Pressure Position Pulse Oximetry 96 Oxygen Delivery Method Sepsis Recent Fever Within 48 Hours Sepsis New/Unexplained Change in Mental Status Sepsis Action Taken by Nursing Laboratory Data Result diagrams: 07/08/21 00:55 07/08/21 00:55 Lab Results 07/08/21 07/08/21 07/08/21 Range/Units 00:55 00:55 00:55 WBC 8.91 (4.8-10.8) K/uL RBC 4.46 L (4.7-6.1) M/uL Hgb 11.8 L (14.0-18.0) g/dL Hct 38.0 L (42-52) % MCV 85.2 (80-100) fL MCH 26.5 (25-34) pg MCHC 31.1 L (32-36) g/dL RDW Std Deviation 55.3 H (36.4-46.3) fL RDW Coeff of Michelle 17.6 H (11.5-14.5) % Plt Count 169 (130-400) K/uL MPV 12.0 H (7.4-10.4) fL Immature Gran % (Auto) 0.8 % Neut % (Auto) 59.8 % Lymph % (Auto) 28.5 % [place] % (Auto) 8.5 % Eos % (Auto) 2.1 % Baso % (Auto) 0.3 % Neut # (Auto) 5.32 (1.4-6.5) K/uL Lymph # (Auto) 2.54 (1.2-3.4) K/uL [place] # (Auto) 0.76 H (0.11-0.59) K/uL Eos # (Auto) 0.19 (0-0.5) K/uL Baso # (Auto) 0.03 (0-0.2) K/uL Immature Gran # (Auto) 0.07 H (0.00-0.02) K/uL PT 10.1 (9.0-12.0) Seconds INR 0.9 (0.9-1.1) APTT 25.3 (21.0-31.0) Seconds PTT Ratio 0.9 Sodium 129 L (136-145) mmol/L Potassium 4.1 (3.5-5.1) mmol/L Chloride 90 L (98-107) mmol/L Carbon Dioxide 27 (21-32) mmol/L Anion Gap 12 H (3-11) BUN 52 H (6-23) mg/dl Creatinine 5.53 H* (0.6-1.4) mg/dl Est Cr Clr Drug Dosing 17.0 ml/min Est GFR ( Amer) 13.3 ml/min Est GFR (Non-Af Amer) 11.4 ml/min BUN/Creatinine Ratio 9.4 L (10-20) Glucose 456 H* (70-99(Fasting)) mg/dl Calcium 8.4 L (8.5-10.1) mg/dl Total Bilirubin 0.4 (0.2-1.0) mg/dl AST 45 H (13-39) U/L ALT 38 (7-52) U/L Alkaline Phosphatase 122 H (34-104) U/L Troponin I High Sens 458.5 H* (0-20) pg/ml Total Protein 6.6 (6.0-8.3) gm/dl Albumin 3.8 (3.4-5.0) gm/dl Globulin 2.8 (2.5-4.0) gm/dl Albumin/Globulin Ratio 1.4 (0.9-2) Lipase 17 (11-82) U/L SARS-CoV-2, RNA, NAAT (NEGATIVE) 07/08/21 Range/Units 02:34 WBC (4.8-10.8) K/uL RBC (4.7-6.1) M/uL Hgb (14.0-18.0) g/dL Hct (42-52) % MCV (80-100) fL MCH (25-34) pg MCHC (32-36) g/dL RDW Std Deviation (36.4-46.3) fL RDW Coeff of Michelle (11.5-14.5) % Plt Count (130-400) K/uL MPV (7.4-10.4) fL Immature Gran % (Auto) % Neut % (Auto) % Lymph % (Auto) % [place] % (Auto) % Eos % (Auto) % Baso % (Auto) % Neut # (Auto) (1.4-6.5) K/uL Lymph # (Auto) (1.2-3.4) K/uL [place] # (Auto) (0.11-0.59) K/uL Eos # (Auto) (0-0.5) K/uL Baso # (Auto) (0-0.2) K/uL Immature Gran # (Auto) (0.00-0.02) K/uL PT (9.0-12.0) Seconds INR (0.9-1.1) APTT (21.0-31.0) Seconds PTT Ratio Sodium (136-145) mmol/L Potassium (3.5-5.1) mmol/L Chloride (98-107) mmol/L Carbon Dioxide (21-32) mmol/L Anion Gap (3-11) BUN (6-23) mg/dl Creatinine (0.6-1.4) mg/dl Est Cr Clr Drug Dosing ml/min Est GFR ( Amer) ml/min Est GFR (Non-Af Amer) ml/min BUN/Creatinine Ratio (10-20) Glucose (70-99(Fasting)) mg/dl Calcium (8.5-10.1) mg/dl Total Bilirubin (0.2-1.0) mg/dl AST (13-39) U/L ALT (7-52) U/L Alkaline Phosphatase (34-104) U/L Troponin I High Sens (0-20) pg/ml Total Protein (6.0-8.3) gm/dl Albumin (3.4-5.0) gm/dl Globulin (2.5-4.0) gm/dl Albumin/Globulin Ratio (0.9-2) Lipase (11-82) U/L SARS-CoV-2, RNA, NAAT NEGATIVE (NEGATIVE) Administered Medications Heparin Sodium/Dextrose (Heparin Sodium/Dextrose) 25,000 units in 500 mls @ 26 mls/hr IV .[id number] [facility]; Protocol Stop: 08/07/21 01:59 Last Admin: 07/08/21 02:26 Dose: 1,300 units/hr, 26 mls/hr Documented by: [id number] Cosigned by: [id number] Discontinued Medications Aspirin (Aspirin Chew 324 Mg) 324 mg PO NOW STA Stop: 07/08/21 01:43 Last Admin: 07/08/21 01:57 Dose: 324 mg Documented by: [id number] Heparin Sodium (Porcine) (Heparin Sod (Porcine) 1000 Unit/Ml) 1 units IV NOW ONE Stop: 07/08/21 01:59 Last Admin: 07/08/21 02:25 Dose: 6,000 units Documented by: [id number] Cosigned by: [id number] Heparin Sodium/Dextrose (Heparin Iv Adult Wt-Based Standard With Bolus Protocol) 1 ea IV NOW STA; Protocol Stop: 07/08/21 01:44 Last Admin: 07/08/21 02:37 Dose: Not Given Documented by: [id number] Morphine Sulfate (Morphine Sulfate 4 Mg/Ml 1 Ml Carp\\Vial) Confirm Administered Dose 4 mg .ROUTE .STK-MED ONE Stop: 07/08/21 00:54 Last Admin: 07/08/21 00:58 Dose: Not Given Documented by: [id number] Morphine Sulfate (Morphine Sulfate 4 Mg/Ml 1 Ml Carp\\Vial) 4 mg IV NOW STA Stop: 07/08/21 00:55 Last Admin: 07/08/21 00:59 Dose: 4 mg Documented by: [id number] Nitroglycerin (Nitroglycerin Sl 0.4 Mg/Tab Tab) 0.4 mg SL NOW STA Stop: 07/08/21 00:55 Last Admin: 07/08/21 01:40 Dose: 0.4 mg Documented by: [id number] Ondansetron HCl (Ondansetron Inj 2 Mg/Ml 2 Ml Vial) Confirm Administered Dose 4 mg .ROUTE .STK-MED ONE Stop: 07/08/21 00:54 Last Admin: 07/08/21 00:59 Dose: Not Given Documented by: [id number] Ondansetron HCl (Ondansetron Inj 2 Mg/Ml 2 Ml Vial) 4 mg IV NOW STA Stop: 07/08/21 00:55 Last Admin: 07/08/21 00:59 Dose: 4 mg Documented by: [id number] Discharge Plan Visit Data Chief Complaint: Cardiac Assessment Stated Complaint: CHEST PAIN,LEFT SIDE NUMBNESS,VISION ISSUES,NAUSEA ED Provider: Nestor Waddell Discharge Problem: Non-ST elevation (NSTEMI) myocardial infarction Forms Stand Alone Forms: My [facility] [employer] Prescriptions Prescriptions: No Action allopurinol 300 mg tablet 300 mg PO HS Qty: 90 RF: 3 prednisone 5 mg tablet 5 mg PO HS Qty: 90 RF: 3 aspirin 81 mg tablet,delayed release (DR/EC) 81 mg PO HS Qty: 30 RF: 5 ergocalciferol (vitamin D2) 1,250 mcg (50,000 unit) capsule 1,250 mcg PO .weekly Qty: 24 RF: 0 sertraline 100 mg tablet 100 mg PO HS Qty: 30 RF: 6 clopidogrel [Plavix] 75 mg tablet 75 mg PO HS Qty: 30 RF: 5 atorvastatin 80 mg tablet 80 mg PO HS Qty: 90 RF: 3 furosemide [Lasix] 40 mg tablet 80 mg PO DAILY Qty: 60 RF: 5 Hold Instructions: hold now pregabalin [Lyrica] 75 mg capsule 150 mg PO HS Qty: 90 RF: 5 ropinirole 0.5 mg tablet 0.5 mg PO DAILY Qty: 90 RF: 3 (DME) Dexcom G6 Sensor Device See Dose Instructions .ROUTE .MEDSUPPLY Qty: 9 RF: 3 (DME) Dexcom G6 Transmitter Device See Dose Instructions .ROUTE .MEDSUPPLY Qty: 1 RF: 3 sirolimus 2 mg tablet 4 mg PO HS Qty: 180 RF: 3 potassium chloride 10 mEq tablet extended release 20 meq PO DAILY Qty: 180 RF: 3 sevelamer carbonate [Renvela] 800 mg tablet 800 mg PO TID Qty: 270 RF: 2 Glucagon Emergency Kit (human) 1 mg recon soln 1 mg IM DIRECTED PRN (Reason: LOW BLOOD SUGAR) RF: 0 pantoprazole 40 mg tablet,delayed release (DR/EC) 40 mg PO HS RF: 0 insulin aspart U-100 [Novolog U-100 Insulin aspart] 100 unit/mL solution 60 unit subcut DAILY 90 Days Qty: 60 RF: 0 (DME) insulin syringe-needle U-100 [BD Insulin Syringe] 0.5 mL 29 gauge x 1/2" syringe See Rx Instructions .Route Qty: 200 RF: 0 calcitriol 0.5 mcg capsule 0.5 mcg PO Q OTHER DAY RF: 0 clindamycin phosphate 1 % solution 1 applic topical BID PRN (Reason: Rash) RF: 0 metoprolol succinate 25 mg tablet extended release 24 hr 75 mg PO DAILY RF: 0 diclofenac sodium 1 % gel 2 g topical QID PRN (Reason: Pain) RF: 0 Referrals Referrals: Korina Lima CRNP [Nurse Practitioner] -
[2021-07-08 01:14] LABS: Basophils # (auto) 0.03 K/uL (0-0.2); Basophils % (auto) 0.3 %; Eosinophils # (auto) 0.19 K/uL (0-0.5); Eosinophils % (auto) 2.1 %; Hemoglobin 11.8 g/dL (14.0-18.0); Immature Granulocytes # (auto) 0.07 K/uL (0.00-0.02); Immature Granulocytes % (auto) 0.8 %; Lymphocytes # (auto) 2.54 K/uL (1.2-3.4); Lymphocytes % (auto) 28.5 %; Mean Corpuscular Hemoglobin 26.5 pg (25-34); Mean Corpuscular Hgb Conc 31.1 g/dL (32-36); Mean Corpuscular Volume 85.2 fL (80-100); Monocytes # (auto) 0.76 K/uL (0.11-0.59); Monocytes % (auto) 8.5 %; Neutrophils # (auto) 5.32 K/uL (1.4-6.5); Neutrophils % (auto) 59.8 %; Platelet Count 169 K/uL (130-400); RDW Coefficient of Variation 17.6 % (11.5-14.5); RDW Standard Deviation 55.3 fL (36.4-46.3); Red Blood Count 4.46 M/uL (4.7-6.1); White Blood Count 8.91 K/uL (4.8-10.8)
[2021-07-08 01:23] LABS: INR 0.9 (0.9-1.1); Partial Thromboplastin Ratio 0.9; Partial Thromboplastin Time 25.3 Seconds (21.0-31.0); Prothrombin Time 10.1 Seconds (9.0-12.0)
[2021-07-08 01:39] LABS: Troponin I High Sensitivity 458.5 pg/ml (0-20)
[2021-07-08] MEDS ORDERED: ASPIRIN CHEW 324 MG PO STA (01:42)
[2021-07-08] MEDS ORDERED: Heparin IV Adult Wt-Based Standard WITH Bolus Protocol IV STA (01:43)
[2021-07-08 01:49] LABS: Albumin Globulin Ratio 1.4 (0.9-2); Albumin Level 3.8 gm/dl (3.4-5.0); BUN Creatinine Ratio 9.4 (10-20); Bilirubin,Total 0.4 mg/dl (0.2-1.0); Calcium 8.4 mg/dl (8.5-10.1); Est GFR (African American) 13.3 ml/min; Est GFR (Non-African American) 11.4 ml/min; Globulin 2.8 gm/dl (2.5-4.0); Potassium 4.1 mmol/L (3.5-5.1); Total Protein 6.6 gm/dl (6.0-8.3)
[2021-07-08] MEDS ORDERED: HEPARIN SOD (PORCINE) 1000 UNIT/ML IV ONE (01:58)
[2021-07-08] MEDS: HEPARIN SODIUM/DEXTROSE 25,000 UNITS/500 ML BAG IV SCH (02:26)
--- NOTE | 2021-07-08 03:16 | History & Physical Report ---
Date of Service July 08, 2021 Assessment & Plan (1) Chest pain: Plan: 45yo male with history of CAD s/p anterolateral MT in 2016 with stent placement, ESRD on HD, DM-I presenting with chest pain, similar to prior MT. Chest pain relieved by Morphine, Nitro and ASA. Initial EKG with subtle ST changes, no STEMI. HS-trop initial elevated at 458.5 (in ESRD). Presently chest pain free. Ddx to include acute MT, GI, less likely musculoskeletal pain -Admit to PCU -Continue to trend troponin -Check BNP with next blood draw -Check 2D echo -Continue heparin gtt -Continue ASA, Plavix, Metoprolol and Atorvastatin -Cardiology consultation appreciated -Will keep patient NPO for possible catheterization (2) Type 1 diabetes: Plan: Elevated blood sugar initially at 456. Patient manages his blood sugars with insulin pump. Typically fairly well controlled - last [id number]=0.6 on 03/08/21. He reports he was helping his daughter with something today and got distracted and didn't give himself enough insulin. BSG per pump presently 316 -Continue insulin by pump -Fingersticks qAC/HS -Check A1C with next blood draw (3) ESRD (end stage renal disease): Plan: Patient with ESRD. s/p failed renal transplant. He was previously on peritoneal dialysis but states that he had a difficult time controlling his blood sugars while on this therapy. He is now on HD q M//. Last full treatment 07/06/21 -Nephrology consultation appreciated -Continue sevelamer 800mg po TID -Continue Calcitriol -Continue Lasix 80mg po daily -Continue Prednisone 5mg po daily. Low threshold for stress steroids if patient becomes hypotensive -Continue Sirolimus (4) CAD (coronary artery disease): Plan: Patient with history of CAD s/p MT with MAR placement in 2016. Presenting with chest pain as described. Concern for ACS given symptom description, elevation of HS-troponin -Continue ASA, Plavix, Metoprolol, and Atorvastatin -Cardiology consultation appreciated (5) Moderate obstructive sleep apnea: Plan: Chronic -CPAP [id number] qHS (6) Hyperparathyroidism: Plan: Chronic. Stable on medication -Continue Calcitriol (7) Hyperlipidemia: Plan: Chronic. Last lipid panel in March 2021 with total cholesterol 224, QCZ=168, HDL=59, JL=855 -Continue Atorvastatin (8) GERD (gastroesophageal reflux disease): Plan: Chronic. Controlled on medication -Continue Protonix Plan: F/E/N - Heplock. Check Mg and PO4 x 1 and replete as needed. NPO for now Ppx - On heparin gtt for concern for ACS Code - Full per discussion with patient Dispo -Admit to PCU History of Present Illness Chief Complaint: chest pain Primary Care Provider: Edi Amador DO Constantine Dalton is a 45yo male with history of Type I DM well managed with insulin pump, ESRD s/p renal transplant now on HD w /W/, CAD s/p anterolateral STEMI with MAR placement to diagonal 03/25/2015 presenting with chest pain. Patient was getting ready for bed when he developed acute left sided chest pain around 21:30. Pain located in the left chest with radiation down the left arm and into the back of the neck - heaviness to left arm. Severe, 8/10 with associated nausea and lightheadedness. He took a Nexium at home thinking it may be heart burn with no relief. Patient was administered morphine in the ER with slight improvement. Chest pain resolved with ASA and Nitro. Presently chest pain free. No additional complaints. Denies fever, chills, cough, SOB, abdominal pain, nausea, vomiting, diarrhea or constipation. Patient is active and independent. Does not experience exertional chest pain or shortness of breath. ER Course: ASA 324mg, Heparin bolus and gtt, Nitro 0.4mg x 1, Zofran 4mg IV, Morphine 4mg IV Allergies Allergy/AdvReac Type Severity Reaction Status Date / Time PORK INSULIN Allergy Intermediate Hives Uncoded 07/08/21 01:38 Home Medications Medication Instructions Recorded Confirmed Type glucagon (human recombinant) 1 mg 1 mg IM DIRECTED PRN 10/05/18 07/08/21 History solution for injection (Glucagon Emergency Kit) allopurinol 300 mg tablet 300 mg PO HS #90 tab 03/30/20 07/08/21 Rx prednisone 5 mg tablet 5 mg PO HS #90 tab 03/30/20 07/08/21 Rx aspirin 81 mg tablet,delayed 81 mg PO HS #30 tab 09/25/20 07/08/21 Rx release sevelamer carbonate 800 mg tablet 800 mg PO TID #270 tab 10/02/20 07/08/21 Rx (Renvela) calcitriol 0.5 mcg capsule 0.5 mcg PO Q OTHER DAY 10/10/20 07/08/21 History clindamycin phosphate 1 % topical 1 applic TOPICAL BID PRN 10/10/20 07/08/21 History solution potassium chloride 10 mEq 20 meq PO DAILY #180 tab 11/16/20 07/08/21 Rx tablet,extended release ergocalciferol (vitamin D2) 1,250 1,250 mcg PO .weekly #24 cap 11/22/20 07/08/21 Rx mcg (50,000 unit) capsule sertraline 100 mg tablet 100 mg PO HS #30 tab 12/20/20 07/08/21 Rx clopidogrel 75 mg tablet (Plavix) 75 mg PO HS #30 tab 03/20/21 07/08/21 Rx atorvastatin 80 mg tablet 80 mg PO HS #90 tab 04/18/21 07/08/21 Rx furosemide 40 mg tablet (Lasix) 80 mg PO DAILY #60 tab 04/19/21 07/08/21 Rx pregabalin 75 mg capsule (Lyrica) 150 mg PO HS #90 cap 04/26/21 07/08/21 Rx ropinirole 0.5 mg tablet 0.5 mg PO DAILY #90 tab 04/26/21 07/08/21 Rx Dexcom G6 Sensor (blood-glucose #9 ea NS 05/15/21 05/29/21 Rx sensor) Dexcom G6 Transmitter #1 ea NS 05/15/21 05/29/21 Rx (blood-glucose transmitter) sirolimus 2 mg tablet 4 mg PO HS #180 tab 05/24/21 07/08/21 Rx insulin aspart U-100 100 unit/mL 60 unit SUBCUT DAILY 90 Days #60 ml 05/29/21 07/08/21 Rx subcutaneous solution (Novolog U-100 Insulin aspart) insulin syringe-needle U-100 0.5 #200 ea 05/29/21 05/29/21 Rx mL 29 gauge x 1/2" (BD Insulin Syringe) pantoprazole 40 mg tablet,delayed 40 mg PO HS tab 05/29/21 07/08/21 History release diclofenac sodium 1 % topical gel 2 g TOPICAL QID PRN 07/08/21 07/08/21 History metoprolol succinate 25 mg 75 mg PO DAILY 07/08/21 07/08/21 History tablet,extended release 24 hr Past Med/Surg History Medical History (Updated 07/08/21 @ 03:21 by Ronel Lima DO) Acute respiratory failure with hypoxia AMI anterolateral wall 2016 CAD (coronary artery disease) Chewing tobacco nicotine dependence Deep vein thrombosis ARM (10 YEARS AGO) AT [facility] Fistula LEFT ARM (NON FUNCTIONING) Gout Mitral regurgitation MILD-MOD Peripheral neuropathy Sensory problems with limbs Sleep apnea CPAP STEMI (ST elevation myocardial infarction) Type 1 diabetes Surgical History H/O eye surgery LEFT/RT LASER SURGERY History of below knee amputation LEFT REVISION (5 TOTAL) History of cardiac cath 2016 - MT - [facility] - 2 STENTS - FOLLOWS W/ DR. JURADO History of heart artery stent 2015 (2 STENTS PLACED) AT [facility] History of right hip replacement 03/17/2019 [facility] History of total replacement of right hip Kidney transplant recipient 2002 Status post left hip replacement Family History Grandfather Family history of diabetes mellitus Other No family history of adverse response to anesthesia Social History Smoking Status: Never smoker Second Hand Exposure: No; Hx Alcohol Use: Yes Alcohol type: beer Alcohol Intake Frequency: 2-3 x/Week Hx Substance Use: No Preferred Language: Telugu Communication Ability: Effective Zoo Caretaker Required: Yes Beliefs That Will Affect Care: None marital status: Current Living Situation: Family current occupational status: employed 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 - [employer] How many Children do You have: 2 How many Children do You have Comment: 1 is Feels Safe at Home: Yes Assistive Devices: Prosthesis and Wheelchair Review of Systems Review of Systems: All systems reviewed & are unremarkable except as noted in HPI & below Physical Exam Physical Exam: General: patient resting comfortably, NAD, non-toxic in appearance, AA&O x 4 Skin: warm, dry, intact, no rashes or lesions HEENT: NC/AT, PERRL, EOMI, anicteric sclera, conjunctiva without injection, external ear normal to inspection and nontender, nares patent, moist mucus membranes, dentition intact, no oropharyngeal lesions, neck supple, trachea midline, no LAD, no thyromegaly, no JVD Heart: +S1/S2, regular, 3/6 blowing murmur over mitral valve, no rubs, gallops Lungs: equal air entry bilaterally, no rales/rhonchi/wheezes Abd: +BS, soft, NT/ND, no masses/organomegaly/ascites, peritoneal dialysis catheter in place with no evidence of infection/drainage/peritonitis Ext: warm, 2+ pulses in UE/LE bilaterally, no clubbing/cyanosis or edema, left wrist fistula with palpable thrill, s/p left BKA with prosthesis in place Neuro: nonfocal, patient AA&O x 4, speech intact, no facial droop, moving all extremities on command with equal strength 5/5 Results & Data Results & Data ([facility]) Vital Signs (Past 12 Hours) Vital Signs Temp Pulse Resp BP Pulse Ox 07/08/21 02:45 88 20 96 07/08/21 02:30 88 18 94 07/08/21 02:15 86 16 96 07/08/21 02:00 88 15 95/65 L 94 07/08/21 01:50 84 14 82/63 L 94 07/08/21 01:45 88 19 95 07/08/21 01:30 95 H 10 L 102/71 97 07/08/21 01:15 99 H 14 93 07/08/21 01:02 100 07/08/21 01:00 101 H 15 92 07/08/21 00:57 104 H 16 102/69 99 07/08/21 00:54 105 H 22 96 07/08/21 00:40 36.8 C 106 H 18 116/80 98 Laboratory Results Laboratory Results WBC 8.91 K/uL (4.8-10.8) 07/08/21 00:55 RBC 4.46 M/uL (4.7-6.1) L 07/08/21 00:55 Hgb 11.8 g/dL (14.0-18.0) L 07/08/21 00:55 Hct 38.0 % (42-52) L 07/08/21 00:55 MCV 85.2 fL (80-100) 07/08/21 00:55 MCH 26.5 pg (25-34) 07/08/21 00:55 MCHC 31.1 g/dL (32-36) L 07/08/21 00:55 RDW Std Deviation 55.3 fL (36.4-46.3) H 07/08/21 00:55 RDW Coeff of Michelle 17.6 % (11.5-14.5) H 07/08/21 00:55 Plt Count 169 K/uL (130-400) 07/08/21 00:55 MPV 12.0 fL (7.4-10.4) H 07/08/21 00:55 Immature Gran % (Auto) 0.8 % 05 00:55 Neut % (Auto) 59.8 % 07/08/21 00:55 Lymph % (Auto) 28.5 % 07/08/21 00:55 [place] % (Auto) 8.5 % 07/08/21 00:55 Eos % (Auto) 2.1 % 07/08/21 00:55 Baso % (Auto) 0.3 % 07/08/21 00:55 Neut # (Auto) 5.32 K/uL (1.4-6.5) 07/08/21 00:55 Lymph # (Auto) 2.54 K/uL (1.2-3.4) 07/08/21 00:55 [place] # (Auto) 0.76 K/uL (0.11-0.59) H 07/08/21 00:55 Eos # (Auto) 0.19 K/uL (0-0.5) 07/08/21 00:55 Baso # (Auto) 0.03 K/uL (0-0.2) 07/08/21 00:55 Immature Gran # (Auto) 0.07 K/uL (0.00-0.02) H 07/08/21 00:55 PT 10.1 Seconds (9.0-12.0) 07/08/21 00:55 INR 0.9 (0.9-1.1) 07/08/21 00:55 APTT 25.3 Seconds (21.0-31.0) 05 00:55 PTT Ratio 0.9 07/08/21 00:55 Sodium 129 mmol/L (136-145) L 07/08/21 00:55 Potassium 4.1 mmol/L (3.5-5.1) 05/08/22 00:55 Chloride 90 mmol/L (98-107) L 07/08/21 00:55 Carbon Dioxide 27 mmol/L (21-32) 07/08/21 00:55 Anion Gap 12 (3-11) H 07/08/21 00:55 BUN 52 mg/dl (6-23) H 07/08/21 00:55 Creatinine 5.53 mg/dl (0.6-1.4) H* 07/08/21 00:55 Est Cr Clr Drug Dosing 17.0 ml/min 07/08/21 00:55 Est GFR ( Amer) 13.3 ml/min 07/08/21 00:55 Est GFR (Non-Af Amer) 11.4 ml/min 07/08/21 00:55 BUN/Creatinine Ratio 9.4 (10-20) L 07/08/21 00:55 Glucose 456 mg/dl (70-99(Fasting)) H* 07/08/21 00:55 Calcium 8.4 mg/dl (8.5-10.1) L 07/08/21 00:55 Total Bilirubin 0.4 mg/dl (0.2-1.0) 07/08/21 00:55 AST 45 U/L (13-39) H 07/08/21 00:55 ALT 38 U/L (7-52) 07/08/21 00:55 Alkaline Phosphatase 122 U/L (34-104) H 07/08/21 00:55 Troponin I High Sens 458.5 pg/ml (0-20) H* 07/08/21 00:55 Total Protein 6.6 gm/dl (6.0-8.3) 07/08/21 00:55 Albumin 3.8 gm/dl (3.4-5.0) 07/08/21 00:55 Globulin 2.8 gm/dl (2.5-4.0) 07/08/21 00:55 Albumin/Globulin Ratio 1.4 (0.9-2) 07/08/21 00:55 Lipase 17 U/L (11-82) 07/08/21 00:55 SARS-CoV-2, RNA, NAAT NEGATIVE (NEGATIVE) 07/08/21 02:34 Diagnostic Findings CXR - by my interpretation appears to show cardiomegaly with mild airspace opacities bilaterally - similar to prior. ?edema ECG Additional Comments: Initial EKG at 00:[address] at 107bpm, normal axis, QI=730, QRS=92, AZy=138, ST flattening in inferior leads - appears slightly improved on repeat at 01:58 Code Status & VTE Plan VTE Prophylaxis Plan VTE Prophylaxis will be ordered: Yes PG Care Time/CCT Total # of Minutes Spent Total Time Spent with Patient: Total time spent is greater than 50% in coordination of care (as documented) at patient's floor/unit and/or counseling patient: Coding Level of Care Code 61784 Initial Inpt Care Lvl 3 Diagnoses Type 1 diabetes E10.9 ESRD (end stage renal disease) N18.6 Chest pain R07.9 Chest pain type: unspecified CAD (coronary artery disease) I25.10 Moderate obstructive sleep apnea G47.33 Hyperparathyroidism E21.3 Hyperlipidemia E78.5 GERD (gastroesophageal reflux disease) K21.9 (1) Chest pain Chest pain type: unspecified Qualified Code(s): R07.9 - Chest pain, unspecified
[2021-07-08] MEDS ORDERED: DEXTROSE 50% 50 ML SYRINGE IV PRN (04:16)
[2021-07-08] MEDS ORDERED: GLUCOSE 10 TABS/TUBE PO PRN (04:16)
[2021-07-08] MEDS ORDERED: GLUCOSE 40% GEL 15 GM TUBE PO PRN (04:16)
[2021-07-08] MEDS ORDERED: CARBOHYDRATES FOR HYPOGLYCEMIA PO PRN (04:16)
[2021-07-08] MEDS ORDERED: DOCUSATE SODIUM 100 MG CAP PO PRN (04:16)
[2021-07-08] MEDS ORDERED: ONDANSETRON INJ 2 MG/ML 2 ML VIAL IV PRN (04:16)
[2021-07-08] MEDS ORDERED: GLUCAGON FOR INJ 1 MG VIAL SQ PRN (04:16)
[2021-07-08] MEDS ORDERED: DICLOFENAC SOD 1% GEL 100 GM TUBE EXT PRN (04:16)
[2021-07-08] MEDS ORDERED: MoRPHine SULFATE 2 MG/ML CARP IV PRN (04:16)
[2021-07-08] MEDS ORDERED: ACETAMINOPHEN 325 MG TAB PO PRN (04:16)
[2021-07-08 05:02] LABS: Magnesium 2.3 mg/dl (1.7-2.4); Phosphorus 5.9 mg/dl (2.5-4.9)
[2021-07-08 05:09] LABS: Troponin I High Sensitivity 4442.5 pg/ml (0-20)
[2021-07-08] MEDS: NITROGLYCERIN SL 0.4 MG/TAB TAB SL PRN ×2 (05:56→07:35)
[2021-07-08] MEDS: rOPINIRole HCL 0.25 MG TABLET PO SCH (07:36)
[2021-07-08] MEDS: FUROSEMIDE 80 MG TAB PO SCH (07:36)
[2021-07-08] MEDS: METOPROLOL SUCC 25MG EXT REL TAB PO SCH (07:36)
[2021-07-08] MEDS: SEVELAMER HCL 800 MG TABLET PO SCH ×3 (07:37→16:44)
--- NOTE | 2021-07-08 07:49 | XRay Report ---
XR chest 1V portable CLINICAL HISTORY: Atypical chest pain. COMPARISON STUDY: Chest radiograph March 07, 2021. FINDINGS: Enlargement of the cardiac silhouette is similar to prior exam. There is no pneumothorax or pleural effusion. Interstitial thickening is noted. Slightly increased when compared to prior exam. Old left fourth rib fracture is incidentally noted IMPRESSION: Cardiomegaly with mild interstitial pulmonary edema. ACT 112: Negative or not required by law. Electronically signed by: Carl Terry M.D. 07/08/2021 7:47 AM
--- NOTE | 2021-07-08 08:04 | Nephrology Consultation ---
Date of Consultation July 08, 2021 Assessment & Plan (1) ESRD (end stage renal disease): * Volume status and electrolyte balance are acceptable. No acute indication for HD today * Will plan next dialysis treatment for Friday in order to maintain MWF schedule * PRP in am (2) Non-ST elevation (NSTEMI) myocardial infarction: * Troponin is progressively trending up. Echo w/ new WMA in the LAD distribution * Await Cardiology evaluation. May need catheterization (3) Hypertension: * BP controlled. Continue Metoprolol therapy (4) Type 1 diabetes: * Mgmt as per primary service History of Present Illness Reason for Consultation: ESKD on IHD Attending Physician: Araceli Powell MD History of Present Illness Mr. Dalton is a 45 year old white male who is seen at the request of Dr. Powell to provide in patient dialysis and assist in patient's medical care. Medical records in the EMR were reviewed today and are summarized as follows: Mr. 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 In 2000 Mr. Dalton progressed to ESRD and was started on IHD. In 2001 he received a LRRT from his mother. Post transplant Cr stabilized at 1.6 - 1.8. He did suffer an acute rejection episode 2002 that was managed w/ steroid therapy. Unfortunately he then suffered a slow progressive decline in kidney function. In 01/21 Cr jodi to 4.0 and Mr. Dalton underwent L RC AVF creation and insertion of PD catheter in anticipation of needing dialysis. He started NCCPD 03/24. Unfortunately he did not tolerate NCCPD therapy due to recurrent hyperglycemia. He transitioned to IHD last week. He currently dialyzes MWF at [facility] (MWF 3.5hr F-180NR Qb 250 Qd 800 2K 2Ca Na 137 HCO3 35 EDW 80Kg). His last IHD was 07/06/21. Mr. Dalton presented to [facility] EMD last night w/ anginal symptoms. ECG revealed anterolateral ST segment changes. Echocardiogram revealed a drop in the LVEF and worsening WMA in the LAD distribution. Troponin has progressively risen. He is undergoing evaluation by Cardiology for possible cardiac catheterization today Allergies Allergy/AdvReac Type Severity Reaction Status Date / Time pork derived (porcine) Allergy Intermediate Hives with Verified 07/08/21 04:30 Pork Insulin Home Medications Medication Instructions Recorded Confirmed Type glucagon (human recombinant) 1 mg 1 mg IM DIRECTED PRN 10/05/18 07/08/21 History solution for injection (Glucagon Emergency Kit) allopurinol 300 mg tablet 300 mg PO HS #90 tab 03/30/20 07/08/21 Rx prednisone 5 mg tablet 5 mg PO HS #90 tab 03/30/20 07/08/21 Rx aspirin 81 mg tablet,delayed 81 mg PO HS #30 tab 09/25/20 07/08/21 Rx release sevelamer carbonate 800 mg tablet 800 mg PO TID #270 tab 10/02/20 07/08/21 Rx (Renvela) calcitriol 0.5 mcg capsule 0.5 mcg PO Q OTHER DAY 10/10/20 07/08/21 History clindamycin phosphate 1 % topical 1 applic TOPICAL BID PRN 10/10/20 07/08/21 History solution potassium chloride 10 mEq 20 meq PO DAILY #180 tab 11/16/20 07/08/21 Rx tablet,extended release ergocalciferol (vitamin D2) 1,250 1,250 mcg PO .weekly #24 cap 11/22/20 07/08/21 Rx mcg (50,000 unit) capsule sertraline 100 mg tablet 100 mg PO HS #30 tab 12/20/20 07/08/21 Rx clopidogrel 75 mg tablet (Plavix) 75 mg PO HS #30 tab 03/20/21 07/08/21 Rx atorvastatin 80 mg tablet 80 mg PO HS #90 tab 04/18/21 07/08/21 Rx furosemide 40 mg tablet (Lasix) 80 mg PO DAILY #60 tab 04/19/21 07/08/21 Rx pregabalin 75 mg capsule (Lyrica) 150 mg PO HS #90 cap 04/26/21 07/08/21 Rx ropinirole 0.5 mg tablet 0.5 mg PO DAILY #90 tab 04/26/21 07/08/21 Rx Dexcom G6 Sensor (blood-glucose #9 ea NS 05/15/21 05/29/21 Rx sensor) Dexcom G6 Transmitter #1 ea NS 05/15/21 05/29/21 Rx (blood-glucose transmitter) sirolimus 2 mg tablet 4 mg PO HS #180 tab 05/24/21 07/08/21 Rx insulin aspart U-100 100 unit/mL 60 unit SUBCUT DAILY 90 Days #60 ml 05/29/21 07/08/21 Rx subcutaneous solution (Novolog U-100 Insulin aspart) insulin syringe-needle U-100 0.5 #200 ea 05/29/21 05/29/21 Rx mL 29 gauge x 1/2" (BD Insulin Syringe) pantoprazole 40 mg tablet,delayed 40 mg PO HS tab 05/29/21 07/08/21 History release diclofenac sodium 1 % topical gel 2 g TOPICAL QID PRN 07/08/21 07/08/21 History metoprolol succinate 25 mg 75 mg PO DAILY 07/08/21 07/08/21 History tablet,extended release 24 hr Patient History Medical History (Updated 07/08/21 @ 03:21 by Ronel Lima DO) Acute respiratory failure with hypoxia AMI anterolateral wall 2015 CAD (coronary artery disease) Chewing tobacco nicotine dependence Deep vein thrombosis ARM (10 YEARS AGO) AT [facility] Fistula LEFT ARM (NON FUNCTIONING) Gout Mitral regurgitation MILD-MOD Peripheral neuropathy Sensory problems with limbs Sleep apnea CPAP STEMI (ST elevation myocardial infarction) Type 1 diabetes Surgical History H/O eye surgery LEFT/RT LASER SURGERY History of below knee amputation LEFT REVISION (5 TOTAL) History of cardiac cath 2016 - [place] - [facility] - 2 STENTS - FOLLOWS W/ DR. JURADO History of heart artery stent 2016 (2 STENTS PLACED) AT [facility] History of right hip replacement 03/17/2019 [facility] History of total replacement of right hip Kidney transplant recipient 2002 Status post left hip replacement Family History Grandfather Family history of diabetes mellitus Other No family history of adverse response to anesthesia Social History Smoking Status: Never smoker Second Hand Exposure: No; Hx Alcohol Use: No Hx Substance Use: No Preferred Language: Setswana Communication Ability: Effective Heart Coordinator Required: No Beliefs That Will Affect Care: None marital status: Current Living Situation: Spouse and Family current occupational status: employed 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 - [employer] How many Children do You have: 2 How many Children do You have Comment: 1 is Feels Safe at Home: Yes Assistive Devices: Prosthesis Review of Systems Constitutional: no fever Eyes: no problem reported Ear, Nose, Mouth, Throat: no problem reported Respiratory: no cough and no dyspnea Cardiovascular: no chest pain and no edema Gastrointestinal: no abdominal pain, no nausea, no vomiting and no di arrhea/loose stools Integumentary: no rash Neurologic: no confusion Physical Exam Constitutional: not in distress Eyes: PERRL, conjunctivae normal, anicteric sclerae ENMT: external ear and nose normal, oropharynx normal Neck: trachea midline, no thyromegaly Respiratory: normal respiratory effort, lungs clear to auscultation Cardiovascular: RRR, no murmur, no edema L RC AVF with soft bruit and evidence of recent infiltration Gastrointestinal (Abdomen): normal bowel sounds, soft, nontender, no hepatosplenomegaly PD exit site w/ clean, dry dressing Musculoskeletal: L BKA Skin: no rashes, warm and dry Neurologic: awake; not confused Results & Data ([facility]) Vital Signs (Past 12 Hours) Vital Signs Temp Pulse Pulse Resp BP BP Pulse Ox 07/08/21 07:35 36.4 C L 80 14 123/69 100 07/08/21 04:01 36.6 C 88 16 98/65 L 97 07/08/21 02:45 88 20 96 07/08/21 02:30 88 18 94 07/08/21 02:15 86 16 96 07/08/21 02:00 88 15 95/65 L 94 07/08/21 01:50 84 14 82/63 L 94 07/08/21 01:45 88 19 95 07/08/21 01:30 95 H 10 L 102/71 97 07/08/21 01:15 99 H 14 93 07/08/21 01:02 100 07/08/21 01:00 101 H 15 92 07/08/21 00:57 104 H 16 102/69 99 07/08/21 00:54 105 H 22 96 07/08/21 00:40 36.8 C 106 H 18 116/80 98 Laboratory Results Laboratory Tests 07/08/21 07/08/21 07/08/21 00:55 00:55 04:19 WBC 8.91 Hgb 11.8 L Hct 38.0 L Plt Count 169 Sodium 129 L Potassium 4.1 Chloride 90 L Carbon Dioxide 27 BUN 52 H Creatinine 5.53 H* Glucose 456 H* Calcium 8.4 L Phosphorus 5.9 H Magnesium 2.3 Troponin I High Sens 458.5 H* 4442.5 H* D B-Natriuretic Peptide Albumin 3.8 07/08/21 04:19 WBC Hgb Hct Plt Count Sodium Potassium Chloride Carbon Dioxide BUN Creatinine Glucose Calcium Phosphorus Magnesium Troponin I High Sens B-Natriuretic Peptide 1182 H Albumin Laboratory Tests 07/08/21 09:53 Troponin I High Sens 89853.2 H* D Diagnostic Findings 07/08/21 ECG: Anterolateral ST changes suggestive of anterolateral ischemia 07/08/21 Echocardiogram: Compared to 03/08/21 study, LVEF has declined (35%) and LAD wall motion abnormalities are more extensive and prominent 07/08/21 L RC AVF Duplex: Patent left upper extremity AV fistula. However, velocities within portions of the fistula are diminished, as described above. This could be due to underlying stenosis 07/08/21 CXR: Cardiomegaly with mild interstitial pulmonary edema PG Care Time/CCT Total # of Minutes Spent Total Time Spent with Patient: Total time spent is greater than 50% in coordination of care (as documented) at patient's floor/unit and/or counseling patient: Coding Level of Care Code 95056 Inpt Consult Level 5 Diagnoses ESRD (end stage renal disease) N18.6 Non-ST elevation (NSTEMI) myocardial infarction I21.4 Hypertension I10 Type 1 diabetes E10.9
--- NOTE | 2021-07-08 08:15 | Hospitalist Progress Note ---
Date of Service July 08, 2021 Assessment & Plan (1) Non-ST elevation (NSTEMI) myocardial infarction: Plan: 45yo male with history of CAD s/p anterolateral PA in 2016 with stent placement, ESRD on HD, DM-I presenting with chest pain, similar to prior PA. Chest pain relieved by Morphine, Nitro and ASA. Initial EKG with subtle ST changes, no STEMI. HS-trop initial elevated at 458.5 (in ESRD). Presently chest pain free. NSTEMI: -Patient with history of CAD s/p PA with MAR placement in 2016. Presenting with chest pain as described alleviated by SL nitro and morphine -Echo demonstrating EF of 35%, with akinesis of the apex and mid anterior wall, hypokinesis of the midanteroseptum, mid-inferior and mid-anterolateral wall segments -Troponin trending up on last check (13k) -Continue ASA, Plavix, Metoprolol, and Atorvastatin -Continue to trend troponin until peak -Continue heparin gtt -Cardiology consultation: NPO at midnight for cardiac catheterization on Friday given stoppage of pain and present stability Type 1 diabetes: Elevated blood sugar initially at 456. Patient manages his blood sugars with insulin pump. Typically fairly well controlled - last CieG2I=3.6 on 03/08/21. He reports he was helping his daughter with something today and got distracted and didn't give himself enough insulin. BSG per pump presently 316 -Continue insulin by pump -Fingersticks qAC/HS -A1c pending ESRD (end stage renal disease): -Patient with ESRD. s/p failed renal transplant. -HD q M/W/. Last full treatment 07/06/21 -Nephrology consulted -Continue sevelamer 800mg po TID -Continue Calcitriol -Continue Lasix 80mg po daily -Continue Prednisone 5mg po daily. Low threshold for stress steroids if patient becomes hypotensive -Continue Sirolimus Hyperparathyroidism: -Continue Calcitriol Hyperlipidemia: -Last lipid panel in March 2021 with total cholesterol 224, IBB=909, HDL=59, LZ=336 -Continue Atorvastatin 80mg daily GERD (gastroesophageal reflux disease): -Continue Protonix Diet: NPO at midnight in anticipation of cardiac catheterization DVT ppx: On heparin gtt for concern for ACS Code: FULL CODE (2) ESRD (end stage renal disease): (3) Kidney transplant failure: (4) Type 1 diabetes: (5) CAD (coronary artery disease): Admission and Anticipated Discharge Date Admission Date: July 08, 2021 Supervising Physician Co-Signing Physician Notes Resident Physician Supervision Note: I independently interviewed and examined the patient and verified the landin history and physical, reviewed labs and image studies and agree with resident Dr. Box findings and care plan. Subjective Patient had return of chest pain earlier this morning, temperature alleviated with supplement nitroglycerin. Blood pressures hypotensive to the mid 90s systolic. Gave 1 dose morphine 1 mg IV for continued chest pain/arm pain. EKG demonstrating maintained ST depressions Discussed with cardiology, concern of potential need for cardiac catheterization. Recommended Nitropaste if blood pressure improves stability. Review of Systems Review of Systems: All systems reviewed & are unremarkable except as noted in Subjective Physical Exam Constitutional: WD/WN, vitals as above Eyes: PERRL, conjunctivae normal, anicteric sclerae Respiratory: normal respiratory effort, lungs clear to auscultation Auscultation: no crackles, no rales, no rhonchi and no wheezes Cardiovascular: Rate/Rhythm: regular rate and regular rhythm Heart Sounds: no gallop, no murmur and no cardiac rub Vessels: normal peripheral pulses; no JVD Extremities: no edema Gastrointestinal (Abdomen): Inspection/Auscultation: normal bowel sounds; abdomen not distended Percussion/Palpation: abdomen soft; abdomen nontender and no guarding Skin: no rashes, warm and dry Neurologic: PERRL, EOMI, accommodation nl, no face palsy, no dysarthria Psychiatric: Orientation: alert and oriented x 3 Results & Data Results & Data ([facility]) Vital Signs (Past 12 Hours) Vital Signs Temp Pulse Pulse Resp BP BP Pulse Ox 07/08/21 07:35 36.4 C L 80 14 123/69 100 07/08/21 04:01 36.6 C 88 16 98/65 L 97 07/08/21 02:45 88 20 96 07/08/21 02:30 88 18 94 07/08/21 02:15 86 16 96 07/08/21 02:00 88 15 95/65 L 94 07/08/21 01:50 84 14 82/63 L 94 07/08/21 01:45 88 19 95 07/08/21 01:30 95 H 10 L 102/71 97 05/08/22 01:15 99 H 14 93 07/08/21 01:02 100 07/08/21 01:00 101 H 15 92 07/08/21 00:57 104 H 16 102/69 99 07/08/21 00:54 105 H 22 96 07/08/21 00:40 36.8 C 106 H 18 116/80 98 Laboratory Results 07/08/21 07/08/21 07/08/21 Range/Units 12:28 12:00 09:53 WBC (4.8-10.8) K/uL RBC (4.7-6.1) M/uL Hgb (14.0-18.0) g/dL Hct (42-52) % MCV (80-100) fL MCH (25-34) pg MCHC (32-36) g/dL RDW Std Deviation (36.4-46.3) fL RDW Coeff of Michelle (11.5-14.5) % Plt Count (130-400) K/uL MPV (7.4-10.4) fL Immature Gran % (Auto) % Neut % (Auto) % Lymph % (Auto) % Hendricks % (Auto) % Eos % (Auto) % Baso % (Auto) % Neut # (Auto) (1.4-6.5) K/uL Lymph # (Auto) (1.2-3.4) K/uL Hendricks # (Auto) (0.11-0.59) K/uL Eos # (Auto) (0-0.5) K/uL Baso # (Auto) (0-0.2) K/uL Immature Gran # (Auto) (0.00-0.02) K/uL PT (9.0-12.0) Seconds INR (0.9-1.1) APTT (21.0-31.0) Seconds PTT Ratio Sodium (136-145) mmol/L Potassium (3.5-5.1) mmol/L Chloride (98-107) mmol/L Carbon Dioxide (21-32) mmol/L Anion Gap (3-11) BUN (6-23) mg/dl Creatinine (0.6-1.4) mg/dl Est Cr Clr Drug Dosing ml/min Est GFR ( Amer) ml/min Est GFR (Non-Af Amer) ml/min BUN/Creatinine Ratio (10-20) Glucose (70-99(Fasting)) mg/dl POC Glucose 100 H (70-99) mg/dl Estimat Average Glucose Hemoglobin A1c Calcium (8.5-10.1) mg/dl Phosphorus (2.5-4.9) mg/dl Magnesium (1.7-2.4) mg/dl Total Bilirubin (0.2-1.0) mg/dl AST (13-39) U/L ALT (7-52) U/L Alkaline Phosphatase (34-104) U/L Troponin I High Sens 38505.2 H* D (0-20) pg/ml B-Natriuretic Peptide (0-100) pg/ml Total Protein (6.0-8.3) gm/dl Albumin (3.4-5.0) gm/dl Globulin (2.5-4.0) gm/dl Albumin/Globulin Ratio (0.9-2) Lipase (11-82) U/L Nasal Screen MRSA (PCR) Pending SARS-CoV-2, RNA, NAAT (NEGATIVE) 07/08/21 07/08/21 07/08/21 Range/Units 09:04 04:19 04:19 WBC (4.8-10.8) K/uL RBC (4.7-6.1) M/uL Hgb (14.0-18.0) g/dL Hct (42-52) % MCV (80-100) fL MCH (25-34) pg MCHC (32-36) g/dL RDW Std Deviation (36.4-46.3) fL RDW Coeff of Michelle (11.5-14.5) % Plt Count (130-400) K/uL MPV (7.4-10.4) fL Immature Gran % (Auto) % Neut % (Auto) % Lymph % (Auto) % Hendricks % (Auto) % Eos % (Auto) % Baso % (Auto) % Neut # (Auto) (1.4-6.5) K/uL Lymph # (Auto) (1.2-3.4) K/uL Hendricks # (Auto) (0.11-0.59) K/uL Eos # (Auto) (0-0.5) K/uL Baso # (Auto) (0-0.2) K/uL Immature Gran # (Auto) (0.00-0.02) K/uL PT (9.0-12.0) Seconds INR (0.9-1.1) APTT > 139.0 H* (21.0-31.0) Seconds PTT Ratio > 5.1 Sodium (136-145) mmol/L Potassium (3.5-5.1) mmol/L Chloride (98-107) mmol/L Carbon Dioxide (21-32) mmol/L Anion Gap (3-11) BUN (6-23) mg/dl Creatinine (0.6-1.4) mg/dl Est Cr Clr Drug Dosing ml/min Est GFR ( Amer) ml/min Est GFR (Non-Af Amer) ml/min BUN/Creatinine Ratio (10-20) Glucose (70-99(Fasting)) mg/dl POC Glucose (70-99) mg/dl Estimat Average Glucose Hemoglobin A1c Calcium (8.5-10.1) mg/dl Phosphorus 5.9 H (2.5-4.9) mg/dl Magnesium 2.3 (1.7-2.4) mg/dl Total Bilirubin (0.2-1.0) mg/dl AST (13-39) U/L ALT (7-52) U/L Alkaline Phosphatase (34-104) U/L Troponin I High Sens 4442.5 H* D (0-20) pg/ml B-Natriuretic Peptide 1182 H (0-100) pg/ml Total Protein (6.0-8.3) gm/dl Albumin (3.4-5.0) gm/dl Globulin (2.5-4.0) gm/dl Albumin/Globulin Ratio (0.9-2) Lipase (11-82) U/L Nasal Screen MRSA (PCR) SARS-CoV-2, RNA, NAAT (NEGATIVE) 07/08/21 07/08/21 07/08/21 Range/Units 04:19 02:34 00:55 WBC (4.8-10.8) K/uL RBC (4.7-6.1) M/uL Hgb (14.0-18.0) g/dL Hct (42-52) % MCV (80-100) fL MCH (25-34) pg MCHC (32-36) g/dL RDW Std Deviation (36.4-46.3) fL RDW Coeff of Michelle (11.5-14.5) % Plt Count (130-400) K/uL MPV (7.4-10.4) fL Immature Gran % (Auto) % Neut % (Auto) % Lymph % (Auto) % Hendricks % (Auto) % Eos % (Auto) % Baso % (Auto) % Neut # (Auto) (1.4-6.5) K/uL Lymph # (Auto) (1.2-3.4) K/uL Hendricks # (Auto) (0.11-0.59) K/uL Eos # (Auto) (0-0.5) K/uL Baso # (Auto) (0-0.2) K/uL Immature Gran # (Auto) (0.00-0.02) K/uL PT (9.0-12.0) Seconds INR (0.9-1.1) APTT (21.0-31.0) Seconds PTT Ratio Sodium 129 L (136-145) mmol/L Potassium 4.1 (3.5-5.1) mmol/L Chloride 90 L (98-107) mmol/L Carbon Dioxide 27 (21-32) mmol/L Anion Gap 12 H (3-11) BUN 52 H (6-23) mg/dl Creatinine 5.53 H* (0.6-1.4) mg/dl Est Cr Clr Drug Dosing 17.0 ml/min Est GFR ( Amer) 13.3 ml/min Est GFR (Non-Af Amer) 11.4 ml/min BUN/Creatinine Ratio 9.4 L (10-20) Glucose 456 H* (70-99(Fasting)) mg/dl POC Glucose (70-99) mg/dl Estimat Average Glucose Pending Hemoglobin A1c Pending Calcium 8.4 L (8.5-10.1) mg/dl Phosphorus (2.5-4.9) mg/dl Magnesium (1.7-2.4) mg/dl Total Bilirubin 0.4 (0.2-1.0) mg/dl AST 45 H (13-39) U/L ALT 38 (7-52) U/L Alkaline Phosphatase 122 H (34-104) U/L Troponin I High Sens 458.5 H* (0-20) pg/ml B-Natriuretic Peptide (0-100) pg/ml Total Protein 6.6 (6.0-8.3) gm/dl Albumin 3.8 (3.4-5.0) gm/dl Globulin 2.8 (2.5-4.0) gm/dl Albumin/Globulin Ratio 1.4 (0.9-2) Lipase 17 (11-82) U/L Nasal Screen MRSA (PCR) SARS-CoV-2, RNA, NAAT NEGATIVE (NEGATIVE) 07/08/21 07/08/21 Range/Units 00:55 00:55 WBC 8.91 (4.8-10.8) K/uL RBC 4.46 L (4.7-6.1) M/uL Hgb 11.8 L (14.0-18.0) g/dL Hct 38.0 L (42-52) % MCV 85.2 (80-100) fL MCH 26.5 (25-34) pg MCHC 31.1 L (32-36) g/dL RDW Std Deviation 55.3 H (36.4-46.3) fL RDW Coeff of Michelle 17.6 H (11.5-14.5) % Plt Count 169 (130-400) K/uL MPV 12.0 H (7.4-10.4) fL Immature Gran % (Auto) 0.8 % Neut % (Auto) 59.8 % Lymph % (Auto) 28.5 % Hendricks % (Auto) 8.5 % Eos % (Auto) 2.1 % Baso % (Auto) 0.3 % Neut # (Auto) 5.32 (1.4-6.5) K/uL Lymph # (Auto) 2.54 (1.2-3.4) K/uL Hendricks # (Auto) 0.76 H (0.11-0.59) K/uL Eos # (Auto) 0.19 (0-0.5) K/uL Baso # (Auto) 0.03 (0-0.2) K/uL Immature Gran # (Auto) 0.07 H (0.00-0.02) K/uL PT 10.1 (9.0-12.0) Seconds INR 0.9 (0.9-1.1) APTT 25.3 (21.0-31.0) Seconds PTT Ratio 0.9 Sodium (136-145) mmol/L Potassium (3.5-5.1) mmol/L Chloride (98-107) mmol/L Carbon Dioxide (21-32) mmol/L Anion Gap (3-11) BUN (6-23) mg/dl Creatinine (0.6-1.4) mg/dl Est Cr Clr Drug Dosing ml/min Est GFR ( Amer) ml/min Est GFR (Non-Af Amer) ml/min BUN/Creatinine Ratio (10-20) Glucose (70-99(Fasting)) mg/dl POC Glucose (70-99) mg/dl Estimat Average Glucose Hemoglobin A1c Calcium (8.5-10.1) mg/dl Phosphorus (2.5-4.9) mg/dl Magnesium (1.7-2.4) mg/dl Total Bilirubin (0.2-1.0) mg/dl AST (13-39) U/L ALT (7-52) U/L Alkaline Phosphatase (34-104) U/L Troponin I High Sens (0-20) pg/ml B-Natriuretic Peptide (0-100) pg/ml Total Protein (6.0-8.3) gm/dl Albumin (3.4-5.0) gm/dl Globulin (2.5-4.0) gm/dl Albumin/Globulin Ratio (0.9-2) Lipase (11-82) U/L Nasal Screen MRSA (PCR) SARS-CoV-2, RNA, NAAT (NEGATIVE) Diagnostic Findings Impressions Chest X-Ray 07/08/21 00:47 XR chest 1V portable CLINICAL HISTORY: Atypical chest pain. COMPARISON STUDY: Chest radiograph March 07, 2021. FINDINGS: Enlargement of the cardiac silhouette is similar to prior exam. There is no pneumothorax or pleural effusion. Interstitial thickening is noted. Slightly increased when compared to prior exam. Old left fourth rib fracture is incidentally noted IMPRESSION: Cardiomegaly with mild interstitial pulmonary edema. ACT 112: Negative or not required by law. Electronically signed by: Carl Terry M.D. 07/08/2021 7:47 AM Hemodialysis Access Duplex US 07/08/21 06:21 US hemodialysis access CLINICAL HISTORY: assess flow, fistula COMPARISON STUDY: Left upper extremity doppler ultrasound May 29, 2009. TECHNIQUE: Grayscale, color duplex Doppler sonography of the left upper extremity AV fistula was performed. FINDINGS: A portion of the old left upper arm AV fistula is occluded. This fistula was shown on ultrasound of May 29, 2009. A new left wrist AV fistula i s noted. This fistula is patent. No thrombus is a identified within the fistula. No aneurysm is identified. Peak systolic velocities within the fistula range up to 309 cm/s. This velocity is within normal limits. However, decreased velocities are noted within portions of the fistula, at peak systolic velocity of 20 cm/s. IMPRESSION: 1. Patent left upper extremity AV fistula. However, velocities within portions of the fistula are diminished, as described above. This could be due to underlying stenosis. 2. Old, occluded left upper arm AV fistula. ACT 112: Negative or not required by law. Electronically signed by: Carl Terry M.D. 07/08/2021 11:06 AM Medications Administered Current Inpatient Medications Acetaminophen (Acetaminophen 325 Mg Tab) 650 mg PO Q4H PRN PRN Reason: Pain or Fever Stop: 08/07/21 04:15 Allopurinol (Allopurinol 300 Mg Tab) 300 mg PO HS REBECCA Stop: 08/07/21 20:59 Aspirin (Aspirin 81 Mg Ectab) 81 mg PO HS REBECCA Stop: 08/07/21 20:59 Atorvastatin Calcium (Atorvastatin 40 Mg Tab) 80 mg PO HS REBECCA Stop: 08/07/21 20:59 Calcitriol (Calcitriol 0.25 Mcg Capsule) 0.5 mcg PO Q2D REBECCA Stop: 08/08/21 08:59 Clopidogrel Bisulfate (Clopidogrel Bisulfate 75 Mg Tab) 75 mg PO HS REBECCA Stop: 08/07/21 20:59 Dextrose (Dextrose 50% 50 Ml Syringe) 25 - 50 ml IV UD PRN; Protocol PRN Reason: Hypoglycemia Protocol Stop: 08/07/21 04:15 Diclofenac Sodium (Diclofenac Sod 1% Gel 100 Gm Tube) 2 gm EXT QID PRN PRN Reason: Pain Stop: 08/07/21 04:15 Docusate Sodium (Docusate Sodium 100 Mg Cap) 100 mg PO BID PRN PRN Reason: Constipation Stop: 08/07/21 04:15 Furosemide (Furosemide 80 Mg Tab) 80 mg PO DAILY REBECCA Stop: 08/07/21 08:59 Last Admin: 07/08/21 07:36 Dose: 80 mg Documented by: Glucagon (Glucagon For Inj 1 Mg Vial) 1 mg SQ UD PRN; Protocol PRN Reason: Hypoglycemia Protocol Stop: 08/07/21 04:15 Glucose (Glucose 10 Tabs/Tube) 4 - 8 tabs PO UD PRN; Protocol PRN Reason: Hypoglycemia Protocol Stop: 08/07/21 04:15 Glucose (Glucose 40% Gel 15 Gm Tube) 15 - 30 gm PO UD PRN; Protocol PRN Reason: Hypoglycemia Protocol Stop: 08/07/21 04:15 Heparin Sodium/Dextrose (Heparin Sodium/Dextrose) 25,000 units in 500 mls @ 0 mls/hr IV .Q0M REBECCA; Protocol Stop: 08/07/21 01:59 Last Titration: 07/08/21 10:03 Dose: 0 units/hr, 0 mls/hr Documented by: Sodium Chloride (Nss 1000ml) 1,000 mls @ 0 mls/hr IV .Q0M PRN PRN Reason: For Hemodialysis Use ONLY Stop: 07/09/21 12:59 Metoprolol Succinate (Metoprolol Succ 25mg Ext Rel Tab) 75 mg PO DAILY REBECCA Stop: 08/07/21 08:59 Last Admin: 07/08/21 07:36 Dose: 75 mg Documented by: Miscellaneous (Carbohydrates For Hypoglycemia ) 15 - 30 gm PO UD PRN PRN Reason: Hypoglycemia Protocol Stop: 08/07/21 04:15 Miscellaneous (No Heparin In Dialysis) 1 ea N/A ONE ONE Stop: 07/09/21 07:01 Morphine Sulfate (Morphine Sulfate 2 Mg/Ml Carp) 1 mg IV Q2H PRN PRN Reason: Chest Pain Stop: 07/22/21 04:15 Last Admin: 07/08/21 08:10 Dose: 1 mg Documented by: Nitroglycerin (Nitroglycerin Sl 0.4 Mg/Tab Tab) 0.4 mg SL PRN PRN PRN Reason: Chest Pain Stop: 08/07/21 04:15 Last Admin: 07/08/21 07:35 Dose: 0.4 mg Documented by: Ondansetron HCl (Ondansetron Inj 2 Mg/Ml 2 Ml Vial) 4 mg IV Q6H PRN PRN Reason: Nausea Stop: 08/07/21 04:15 Pantoprazole Sodium (Pantoprazole 40 Mg Tab) 40 mg PO HS REBECCA Stop: 08/07/21 20:59 Prednisone (Prednisone 5 Mg Tab) 5 mg PO HS REBECCA Stop: 08/07/21 20:59 Pregabalin (Pregabalin 150 Mg Cap) 150 mg PO HS REBECCA Stop: 08/07/21 20:59 Ropinirole HCl (Ropinirole Hcl 0.25 Mg Tablet) 0.5 mg PO DAILY REBECCA Stop: 08/07/21 08:59 Last Admin: 07/08/21 07:36 Dose: 0.5 mg Documented by: Sertraline HCl (Sertraline Hcl 100 Mg Tablet) 100 mg PO HS REBECCA Stop: 08/07/21 20:59 Sevelamer HCl (Sevelamer Hcl 800 Mg Tablet) 800 mg PO TIDM REBECCA Stop: 08/07/21 07:59 Last Admin: 07/08/21 11:19 Dose: Not Given Documented by: Sirolimus (Sirolimus 0.5 Mg Tablet) 4 mg PO HS REBECCA Stop: 08/07/21 20:59 Resident Activity Tracking Resident Involvement: Resident Care Provided Care Provided: [facility]
--- NOTE | 2021-07-08 09:40 | XCELERA ---
[id number] \\[id number]
[2021-07-08 09:51] LABS: Partial Thromboplastin Ratio > 5.1
[2021-07-08 10:24] LABS: Partial Thromboplastin Time > 139.0 Seconds (21.0-31.0)
--- NOTE | 2021-07-08 11:08 | Ultrasound Report ---
US hemodialysis access CLINICAL HISTORY: assess flow, fistula COMPARISON STUDY: Left upper extremity doppler ultrasound May 29, 2009. TECHNIQUE: Grayscale, color duplex Doppler sonography of the left upper extremity AV fistula was perf ormed. FINDINGS: A portion of the old left upper arm AV fistula is occluded. This fistula was shown on ultra sound of May 29, 2009. A new left wrist AV fistula is noted. This fistula is patent. No thrombus is a identified within the fistula. No aneurysm is identified. Peak systolic velocities within the fist margoth range up to 309 cm/s. This velocity is within normal limits. However, decreased velocities are no delta within portions of the fistula, at peak systolic velocity of 20 cm/s. IMPRESSION: 1. Patent left upper extremity AV fistula. However, velocities within portions of the fistula are dim inished, as described above. This could be due to underlying stenosis. 2. Old, occluded left upper arm AV fistula. ACT 112: Negative or not required by law. Electronically signed by: Cral Terry M.D. 07/08/2021 11:06 AM
[2021-07-08 13:26] LABS: Partial Thromboplastin Ratio 2.3
[2021-07-08 13:34] LABS: Partial Thromboplastin Time 64.1 Seconds (21.0-31.0)
--- NOTE | 2021-07-08 16:22 | Cardiology Consultation ---
Date of Consultation July 08, 2021 Assessment & Plan (1) Non-ST elevation (NSTEMI) myocardial infarction: (2) Ischemic cardiomyopathy: (3) CAD (coronary artery disease): (4) Aortic stenosis: (5) Hypertension: (6) Hyperlipidemia: (7) Mitral regurgitation: (8) ESRD (end stage renal disease): ASSESSMENT/PLAN: 1. NSTEMI: Appears to have had angina for 8-10 hours before complete resolution while hospitalized with nitroglycerin and morphine. He has remained chest pain- free since then. Continue aspirin and Plavix. High-intensity statin therapy. Continue beta-raine. Recommended nitrate therapy however he has been mostly mildly hypotensive and therefore nitrate therapy has not been initiated. Continue heparin drip. Recommended cardiac catheterization. Risks and benefits were discussed with him in detail. He was made aware that CT surgery is not available at this facility. He is agreeable to undergo the procedure. Would recommend urgent catheterization for recurrent chest discomfort, especially if refractory to medical therapy. Otherwise, given that he is now chest pain free for many hours, continue medical therapy with planned catheterization tomorrow. 2. Ischemic cardiomyopathy: LV systolic function is now moderately reduced. Hopefully there will be improvement if revascularization is possible. Continue beta-raine in the form of metoprolol succinate. No MONA-inhibitor given end- stage renal disease. No aldosterone receptor antagonist given end-stage renal disease. Repeat echo prior to discharge to see if any improvement. He does not appear to be significantly hypervolemic. Volume managed by dialysis. 3. Aortic stenosis: Non severe. Monitor over time. 4. Mitral regurgitation: Non severe. Continue to monitor over time. 5. Dyslipidemia: High-intensity statin therapy. 6. Hypertension: Has a history of hypertension however blood pressure has been mostly mildly hypotensive here, and asymptomatic in that regard. 7. CAD: History of D1 PCI. Continue medical therapy as outlined. Had other nonobstructive CAD including moderate LAD stenosis. Suspect NSTEMI is LAD related given echo findings. 8. ESRD: Nephrology is following to manage HD. Will attempt to coordinate HD with catheterization tomorrow. 9. Disposition: Patient care communicated with primary hospitalist service, Dr. Box. Cardiology will continue to follow. Highly complex medical issues. Thank you for allowing me to participate in the care of your patient. Please call for any other questions or concerns. Sincerely, Oscar Jimenez M.D. History of Present Illness Reason for Consultation: "chest pain, elevated troponin, h/o CAD" Requesting Physician: Ronel Lima Attending Physician: Araceli Powell MD History of Present Illness Mr. Dalton is a very pleasant 45-year-old gentleman with history significant for CAD s/p anterolateral STEMI and D1 PCI (03/25/15), type 1 diabetes with peripheral neuropathy, CKD s/p renal transplant s/p failure, ESRD on HD after unable to tolerate PD due to hyperglycemia, hypertension, sleep apnea on CPAP q.h.s., dyslipidemia, aortic stenosis, and mitral regurgitation. His primary fios line installer was Dr. Jurado, however he has not been evaluated since 2016 based on record review in the outpatient setting. When asked why he has not followed up, he stated that there was no need to. He was seen while hospitalized in consultation on 03/08/2021 when he was hypervolemic, which resolved with dialysis. He had chest discomfort which improved following volume removal and outpatient catheterization had been planned at [facility] as part of a transplant evaluation. Today he states that he never underwent cardiac catheterization. Approximately 10:30 p.m. on 07/07/2021, he developed a mild left-sided chest discomfort which he thought was acid reflux. He then took Nexium at approximately 11:00 p.m. and went to bed. At midnight, he woke up with severe pain described as an elephant sitting on his chest that radiated to his left arm. There was no diaphoresis or shortness of breath. Nausea was present. At approximately 1:00 a.m., his drove him to the emergency department. He received morphine, nitroglycerin, and aspirin and his symptoms improved significantly. At the time of our visit this morning however he states that the pain never completely subsided until 6 or 7 hours later when further nitroglycerin and morphine were administered. Since then, he has been completely chest pain-free. He has tingling in his left fingers and cramping in his left hand with use, but this is different than the left arm pain that he had associated with his chest discomfort. He denies syncope, palpitations, edema, or bleeding. He has noted near-syncope after hemodialysis. His last dialysis was on 07/06/2021. He just started hemodialysis last week as peritoneal dialysis caused hyperglycemia. He states that he is still being evaluated for renal transplant. Review of systems: As above. Review of systems otherwise negative/unremarkable. Family history: No known premature CAD in first-degree relatives. Social history: Denies smoking. Occasional alcohol. Lives at home with his . Has an adult daughter graduating from [employer] in 2021. A son . 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 He was unaccompanied today. Allergies Allergy/AdvReac Type Severity Reaction Status Date / Time pork derived (porcine) Allergy Intermediate Hives with Verified 07/08/21 04:30 Pork Insulin Home Medications Medication Instructions Recorded Confirmed Type glucagon (human recombinant) 1 mg 1 mg IM DIRECTED PRN 10/05/18 07/08/21 History solution for injection (Glucagon Emergency Kit) allopurinol 300 mg tablet 300 mg PO HS #90 tab 03/30/20 07/08/21 Rx prednisone 5 mg tablet 5 mg PO HS #90 tab 03/30/20 07/08/21 Rx aspirin 81 mg tablet,delayed 81 mg PO HS #30 tab 09/25/20 07/08/21 Rx release sevelamer carbonate 800 mg tablet 800 mg PO TID #270 tab 10/02/20 07/08/21 Rx (Renvela) calcitriol 0.5 mcg capsule 0.5 mcg PO Q OTHER DAY 10/10/20 07/08/21 History clindamycin phosphate 1 % topical 1 applic TOPICAL BID PRN 10/10/20 07/08/21 History solution potassium chloride 10 mEq 20 meq PO DAILY #180 tab 11/16/20 07/08/21 Rx tablet,extended release ergocalciferol (vitamin D2) 1,250 1,250 mcg PO .weekly #24 cap 11/22/20 07/08/21 Rx mcg (50,000 unit) capsule sertraline 100 mg tablet 100 mg PO HS #30 tab 12/20/20 07/08/21 Rx clopidogrel 75 mg tablet (Plavix) 75 mg PO HS #30 tab 03/20/21 07/08/21 Rx atorvastatin 80 mg tablet 80 mg PO HS #90 tab 04/18/21 07/08/21 Rx furosemide 40 mg tablet (Lasix) 80 mg PO DAILY #60 tab 04/19/21 07/08/21 Rx pregabalin 75 mg capsule (Lyrica) 150 mg PO HS #90 cap 04/26/21 07/08/21 Rx ropinirole 0.5 mg tablet 0.5 mg PO DAILY #90 tab 04/26/21 07/08/21 Rx Dexcom G6 Sensor (blood-glucose #9 ea NS 05/15/21 05/29/21 Rx sensor) Dexcom G6 Transmitter #1 ea NS 05/15/21 05/29/21 Rx (blood-glucose transmitter) sirolimus 2 mg tablet 4 mg PO HS #180 tab 05/24/21 07/08/21 Rx insulin aspart U-100 100 unit/mL 60 unit SUBCUT DAILY 90 Days #60 ml 05/29/21 07/08/21 Rx subcutaneous solution (Novolog U-100 Insulin aspart) insulin syringe-needle U-100 0.5 #200 ea 05/29/21 05/29/21 Rx mL 29 gauge x 1/2" (BD Insulin Syringe) pantoprazole 40 mg tablet,delayed 40 mg PO HS tab 05/29/21 07/08/21 History release diclofenac sodium 1 % topical gel 2 g TOPICAL QID PRN 07/08/21 07/08/21 History metoprolol succinate 25 mg 75 mg PO DAILY 07/08/21 07/08/21 History tablet,extended release 24 hr Patient History Medical History (Updated 07/08/21 @ 16:28 by Harrison Jimenez MD) Acute respiratory failure with hypoxia AMI anterolateral wall 2016 Aortic stenosis CAD (coronary artery disease) Chewing tobacco nicotine dependence Deep vein thrombosis Fistula Gout Mitral regurgitation Peripheral neuropathy Sensory problems with limbs Sleep apnea CPAP STEMI (ST elevation myocardial infarction) Type 1 diabetes Surgical History H/O eye surgery LEFT/RT LASER SURGERY History of below knee amputation LEFT REVISION (5 TOTAL) History of cardiac cath 2016 - [place] - [facility] - 2 STENTS - FOLLOWS W/ DR. JURADO History of heart artery stent 2016 (2 STENTS PLACED) AT [facility] History of right hip replacement 03/17/2019 [facility] History of total replacement of right hip Kidney transplant recipient 2002 Status post left hip replacement Family History Grandfather Family history of diabetes mellitus Other No family history of adverse response to anesthesia Social History Smoking Status: Never smoker Second Hand Exposure: No; Hx Alcohol Use: No Hx Substance Use: No Preferred Language: Upper Sorbian Communication Ability: Effective Swine Extension Field Specialist Required: No Beliefs That Will Affect Care: None marital status: Current Living Situation: Spouse and Family current occupational status: employed 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 Alert and oriented. HEENT: Anicteric sclera. Neck: No JVD. No bruit. Normal carotid upstrokes bilaterally. Cardiac: PMI was nonpalpable. No ventricular heave. Regular. Normal S1-S2. 1/6 early peaking systolic ejection murmur heard best at right upper sternal border. No rubs or gallops. Pulmonary: Clear to auscultation bilaterally without wheezes, rales, or rhonchi. Abdomen: Soft, nontender, nondistended, with normoactive bowel sounds. No bruits noted. Extremities: 1+ right radial pulse. Left upper extremity AV fistula with audible bruit. 2+ right dorsalis pedis pulse. Left BKA. Trace right lower extremity edema. No cyanosis. Psychiatric: Affect appears appropriate. Results & Data ([facility]) Vital Signs (Past 12 Hours) Vital Signs Temp Pulse Pulse Resp BP Pulse Ox 07/08/21 15:18 75 07/08/21 12:01 36.4 C L 80 16 93/68 L 96 07/08/21 08:49 75 07/08/21 07:35 36.4 C L 80 14 123/69 100 Laboratory Results Laboratory Results - last 24 hr 07/08/21 07/08/21 07/08/21 00:55 00:55 00:55 WBC 8.91 RBC 4.46 L Hgb 11.8 L Hct 38.0 L MCV 85.2 MCH 26.5 MCHC 31.1 L RDW Std Deviation 55.3 H RDW Coeff of Michelle 17.6 H Plt Count 169 MPV 12.0 H Immature Gran % (Auto) 0.8 Neut % (Auto) 59.8 Lymph % (Auto) 28.5 Costilla % (Auto) 8.5 Eos % (Auto) 2.1 Baso % (Auto) 0.3 Neut # (Auto) 5.32 Lymph # (Auto) 2.54 Costilla # (Auto) 0.76 H Eos # (Auto) 0.19 Baso # (Auto) 0.03 Immature Gran # (Auto) 0.07 H PT 10.1 INR 0.9 APTT 25.3 PTT Ratio 0.9 Sodium 129 L Potassium 4.1 Chloride 90 L Carbon Dioxide 27 Anion Gap 12 H BUN 52 H Creatinine 5.53 H* Est Cr Clr Drug Dosing 17.0 Est GFR ( Amer) 13.3 Est GFR (Non-Af Amer) 11.4 BUN/Creatinine Ratio 9.4 L Glucose 456 H* POC Glucose Estimat Average Glucose Hemoglobin A1c Calcium 8.4 L Phosphorus Magnesium Total Bilirubin 0.4 AST 45 H ALT 38 Alkaline Phosphatase 122 H Troponin I High Sens 458.5 H* B-Natriuretic Peptide Total Protein 6.6 Albumin 3.8 Globulin 2.8 Albumin/Globulin Ratio 1.4 Lipase 17 Nasal Screen MRSA (PCR) SARS-CoV-2, RNA, NAAT 07/08/21 07/08/21 07/08/21 02:34 04:19 04:19 WBC RBC Hgb Hct MCV MCH MCHC RDW Std Deviation RDW Coeff of Michelle Plt Count MPV Immature Gran % (Auto) Neut % (Auto) Lymph % (Auto) [place] % (Auto) Eos % (Auto) Baso % (Auto) Neut # (Auto) Lymph # (Auto) [place] # (Auto) Eos # (Auto) Baso # (Auto) Immature Gran # (Auto) PT INR APTT PTT Ratio Sodium Potassium Chloride Carbon Dioxide Anion Gap BUN Creatinine Est Cr Clr Drug Dosing Est GFR ( Amer) Est GFR (Non-Af Amer) BUN/Creatinine Ratio Glucose POC Glucose Estimat Average Glucose Pending Hemoglobin A1c Pending Calcium Phosphorus 5.9 H Magnesium 2.3 Total Bilirubin AST ALT Alkaline Phosphatase Troponin I High Sens 4442.5 H* D B-Natriuretic Peptide Total Protein Albumin Globulin Albumin/Globulin Ratio Lipase Nasal Screen MRSA (PCR) SARS-CoV-2, RNA, NAAT NEGATIVE 07/08/21 07/08/21 07/08/21 04:19 09:04 09:53 WBC RBC Hgb Hct MCV MCH MCHC RDW Std Deviation RDW Coeff of Michelle Plt Count MPV Immature Gran % (Auto) Neut % (Auto) Lymph % (Auto) [place] % (Auto) Eos % (Auto) Baso % (Auto) Neut # (Auto) Lymph # (Auto) [place] # (Auto) Eos # (Auto) Baso # (Auto) Immature Gran # (Auto) PT INR APTT > 139.0 H* PTT Ratio > 5.1 Sodium Potassium Chloride Carbon Dioxide Anion Gap BUN Creatinine Est Cr Clr Drug Dosing Est GFR ( Amer) Est GFR (Non-Af Amer) BUN/Creatinine Ratio Glucose POC Glucose Estimat Average Glucose Hemoglobin A1c Calcium Phosphorus Magnesium Total Bilirubin AST ALT Alkaline Phosphatase Troponin I High Sens 70788.2 H* D B-Natriuretic Peptide 1182 H Total Protein Albumin Globulin Albumin/Globulin Ratio Lipase Nasal Screen MRSA (PCR) SARS-CoV-2, RNA, NAAT 07/08/21 07/08/21 07/08/21 11:53 12:00 12:28 WBC RBC Hgb Hct MCV MCH MCHC RDW Std Deviation RDW Coeff of Michelle Plt Count MPV Immature Gran % (Auto) Neut % (Auto) Lymph % (Auto) [place] % (Auto) Eos % (Auto) Baso % (Auto) Neut # (Auto) Lymph # (Auto) [place] # (Auto) Eos # (Auto) Baso # (Auto) Immature Gran # (Auto) PT INR APTT 64.1 H* PTT Ratio 2.3 Sodium Potassium Chloride Carbon Dioxide Anion Gap BUN Creatinine Est Cr Clr Drug Dosing Est GFR ( Amer) Est GFR (Non-Af Amer) BUN/Creatinine Ratio Glucose POC Glucose 100 H Estimat Average Glucose Hemoglobin A1c Calcium Phosphorus Magnesium Total Bilirubin AST ALT Alkaline Phosphatase Troponin I High Sens B-Natriuretic Peptide Total Protein Albumin Globulin Albumin/Globulin Ratio Lipase Nasal Screen MRSA (PCR) Negative SARS-CoV-2, RNA, NAAT 07/08/21 16:10 WBC RBC Hgb Hct MCV MCH MCHC RDW Std Deviation RDW Coeff of Michelle Plt Count MPV Immature Gran % (Auto) Neut % (Auto) Lymph % (Auto) [place] % (Auto) Eos % (Auto) Baso % (Auto) Neut # (Auto) Lymph # (Auto) [place] # (Auto) Eos # (Auto) Baso # (Auto) Immature Gran # (Auto) PT INR APTT PTT Ratio Sodium Potassium Chloride Carbon Dioxide Anion Gap BUN Creatinine Est Cr Clr Drug Dosing Est GFR ( Amer) Est GFR (Non-Af Amer) BUN/Creatinine Ratio Glucose POC Glucose Estimat Average Glucose Hemoglobin A1c Calcium Phosphorus Magnesium Total Bilirubin AST ALT Alkaline Phosphatase Troponin I High Sens Pending B-Natriuretic Peptide Total Protein Albumin Globulin Albumin/Globulin Ratio Lipase Nasal Screen MRSA (PCR) SARS-CoV-2, RNA, NAAT Diagnostic Findings Echo 07/08/2021: LVEF 35%. Akinesis of the apex and mid anterior wall. Hypokinesis of the mid anteroseptum, mid inferior and mid anterolateral wall segments. Moderate LVH. Mild left atrial dilation. Mild . Mild to moderate MR. Mild to moderate TR. RVSP 41. Compared to previous echo on 03/08/2021, LV systolic function has declined and LAD wall motion abnormalities are more extensive/prominent. Telemetry personally reviewed: Sinus rhythm. No arrhythmia. ECGs personally reviewed: ECG 07/08/2021 at 7:29 a.m.: Sinus rhythm 81 beats per minute. Anterior infarct. Anterolateral ST/T-wave abnormality. ECG 07/08/2021 at 1:58 a.m.: Sinus rhythm 85 beats per minute. Anterior infarct. ECG 07/08/2021 at 12:48 a.m.: Sinus tachycardia 107 beats per minute. Anterior infarct ECG 03/08/2021 at 6:07 a.m.: Sinus rhythm 81 beats per minute. Possible septal infarct. Infero/anterolateral ST/T-wave abnormality. Chest x-ray 07/08/2021: Mild interstitial pulmonary edema per Radiology. Hemodialysis access duplex ultrasound 07/08/2021: Patent left upper extremity AV fistula. Velocities within portions of the fistula are diminished. Old occluded left upper arm AV fistula. Medications Administered Current Inpatient Medications Acetaminophen (Acetaminophen 325 Mg Tab) 650 mg PO Q4H PRN PRN Reason: Pain or Fever Stop: 08/07/21 04:15 Allopurinol (Allopurinol 300 Mg Tab) 300 mg PO HS REBECCA Stop: 08/07/21 20:59 Aspirin (Aspirin 81 Mg Ectab) 81 mg PO HS REBECCA Stop: 08/07/21 20:59 Atorvastatin Calcium (Atorvastatin 40 Mg Tab) 80 mg PO HS REBECCA Stop: 08/07/21 20:59 Calcitriol (Calcitriol 0.25 Mcg Capsule) 0.5 mcg PO Q2D REBECCA Stop: 08/08/21 08:59 Clopidogrel Bisulfate (Clopidogrel Bisulfate 75 Mg Tab) 75 mg PO HS [facility] Stop: 08/07/21 20:59 Dextrose (Dextrose 50% 50 Ml Syringe) 25 - 50 ml IV UD PRN; Protocol PRN Reason: Hypoglycemia Protocol Stop: 08/07/21 04:15 Diclofenac Sodium (Diclofenac Sod 1% Gel 100 Gm Tube) 2 gm EXT QID PRN PRN Reason: Pain Stop: 08/07/21 04:15 Docusate Sodium (Docusate Sodium 100 Mg Cap) 100 mg PO BID PRN PRN Reason: Constipation Stop: 08/07/21 04:15 Furosemide (Furosemide 80 Mg Tab) 80 mg PO DAILY [facility] Stop: 08/07/21 08:59 Last Admin: 07/08/21 07:36 Dose: 80 mg Documented by: Glucagon (Glucagon For Inj 1 Mg Vial) 1 mg SQ UD PRN; Protocol PRN Reason: Hypoglycemia Protocol Stop: 08/07/21 04:15 Glucose (Glucose 10 Tabs/Tube) 4 - 8 tabs PO UD PRN; Protocol PRN Reason: Hypoglycemia Protocol Stop: 08/07/21 04:15 Glucose (Glucose 40% Gel 15 Gm Tube) 15 - 30 gm PO UD PRN; Protocol PRN Reason: Hypoglycemia Protocol Stop: 08/07/21 04:15 Heparin Sodium/Dextrose (Heparin Sodium/Dextrose) 25,000 units in 500 mls @ 0 mls/hr IV .Q0M REBECCA; Protocol Stop: 08/07/21 01:59 Last Titration: 07/08/21 13:41 Dose: 950 units/hr, 19 mls/hr Documented by: Sodium Chloride (Nss 1000ml) 1,000 mls @ 0 mls/hr IV .Q0M PRN PRN Reason: For Hemodialysis Use ONLY Stop: 07/09/21 12:59 Metoprolol Succinate (Metoprolol Succ 25mg Ext Rel Tab) 75 mg PO DAILY [facility] Stop: 08/07/21 08:59 Last Admin: 07/08/21 07:36 Dose: 75 mg Documented by: Miscellaneous (Carbohydrates For Hypoglycemia ) 15 - 30 gm PO UD PRN PRN Reason: Hypoglycemia Protocol Stop: 08/07/21 04:15 Miscellaneous (No Heparin In Dialysis) 1 ea N/A ONE ONE Stop: 07/09/21 07:01 Morphine Sulfate (Morphine Sulfate 2 Mg/Ml Carp) 1 mg IV Q2H PRN PRN Reason: Chest Pain Stop: 07/22/21 04:15 Last Admin: 07/08/21 08:10 Dose: 1 mg Documented by: Nitroglycerin (Nitroglycerin Sl 0.4 Mg/Tab Tab) 0.4 mg SL PRN PRN PRN Reason: Chest Pain Stop: 08/07/21 04:15 Last Admin: 07/08/21 07:35 Dose: 0.4 mg Documented by: Ondansetron HCl (Ondansetron Inj 2 Mg/Ml 2 Ml Vial) 4 mg IV Q6H PRN PRN Reason: Nausea Stop: 08/07/21 04:15 Pantoprazole Sodium (Pantoprazole 40 Mg Tab) 40 mg PO HS REBECCA Stop: 08/07/21 20:59 Prednisone (Prednisone 5 Mg Tab) 5 mg PO HS REBECCA Stop: 08/07/21 20:59 Pregabalin (Pregabalin 150 Mg Cap) 150 mg PO HS REBECCA Stop: 08/07/21 20:59 Ropinirole HCl (Ropinirole Hcl 0.25 Mg Tablet) 0.5 mg PO DAILY REBECCA Stop: 08/07/21 08:59 Last Admin: 07/08/21 07:36 Dose: 0.5 mg Documented by: Sertraline HCl (Sertraline Hcl 100 Mg Tablet) 100 mg PO HS REBECCA Stop: 08/07/21 20:59 Sevelamer HCl (Sevelamer Hcl 800 Mg Tablet) 800 mg PO TIDM REBECCA Stop: 08/07/21 07:59 Last Admin: 07/08/21 11:19 Dose: Not Given Documented by: Sirolimus (Sirolimus 0.5 Mg Tablet) 4 mg PO HS REBECCA Stop: 08/07/21 20:59 PG Care Time/CCT Total # of Minutes Spent Total Time Spent with Patient: Total time spent is greater than 50% in coordination of care (as documented) at patient's floor/unit and/or counseling patient: Coding Level of Care Code 29829 Inpt Consult Level 5 Diagnoses Non-ST elevation (NSTEMI) myocardial infarction I21.4 CAD (coronary artery disease) I25.10 Aortic stenosis I35.0 Hypertension I10 Hyperlipidemia E78.5 Mitral regurgitation I34.0 ESRD (end stage renal disease) N18.6 Ischemic cardiomyopathy I25.5
[2021-07-08 20:01] LABS: Partial Thromboplastin Ratio 1.6; Partial Thromboplastin Time 43.9 Seconds (21.0-31.0)
[2021-07-08] MEDS: SIROLIMUS 0.5 MG TABLET PO SCH (20:10)
[2021-07-08] MEDS: allopurinoL 300 MG TAB PO SCH (20:10)
[2021-07-08] MEDS: ASPIRIN 81 MG ECTAB PO SCH (20:11)
[2021-07-08] MEDS: PANTOprazole 40 MG TAB PO SCH (20:12)
[2021-07-08] MEDS: SERTRALINE HCL 100 MG TABLET PO SCH (20:12)
[2021-07-08] MEDS: ATORVASTATIN 40 MG TAB PO SCH (20:12)
[2021-07-08] MEDS: predniSONE 5 MG TAB PO SCH (20:12)
[2021-07-08] MEDS: CLOPIDOGREL BISULFATE 75 MG TAB PO SCH (20:12)
[2021-07-08] MEDS: PREGABALIN 150 MG CAP PO SCH (20:15)
[2021-07-09 02:57] LABS: Partial Thromboplastin Time 26.7 Seconds (21.0-31.0)
[2021-07-09] MEDS ORDERED: HEPARIN IV BOLUS 6,000 UNITS in SYRINGE 0 ML IV ONE (03:30)
--- NOTE | 2021-07-09 06:02 | Electrocardiogram Report ---
Test Reason : Blood Pressure : / mmHG Vent. Rate : 107 BPM Atrial Rate : 107 BPM P-R Int : 186 ms QRS Dur : 092 ms QT Int : 344 ms P-R-T Axes : 050 058 126 degrees QTc Int : 459 ms Sinus tachycardia Possible Left atrial enlargement Anterior infarct Abnormal ECG When compared with ECG of 08-MAR-2021 06:07, Questionable change in initial forces of Anterior leads T wave inversion no longer evident in Anterolateral leads Confirmed by Harrison Jimenez ([id number]) on 07/09/2021 6:01:54 AM Referred By: REFERRED SELF Confirmed By:Harrison Jimenez
--- NOTE | 2021-07-09 06:03 | Hospitalist Progress Note ---
Date of Service July 09, 2021 Assessment & Plan (1) Non-ST elevation (NSTEMI) myocardial infarction: Plan: 45yo male with history of CAD s/p anterolateral MD in 2016 with stent placement, ESRD on HD, DM-I presenting with chest pain, similar to prior MD. Chest pain relieved by Morphine, Nitro and ASA. Initial EKG with subtle ST changes, no STEMI. HS-trop initial elevated at 458.5 (in ESRD). Presently chest pain free. NSTEMI: -Patient with history of CAD s/p MD with MAR placement in 2016. Presenting with chest pain as described alleviated by SL nitro and morphine -Echo demonstrating EF of 35%, with akinesis of the apex and mid anterior wall, hypokinesis of the midanteroseptum, mid-inferior and mid-anterolateral wall segments -Troponin trending up on last check (13k) -Continue ASA, Plavix, Metoprolol, and Atorvastatin -Continue to trend troponin until peak -Continue heparin gtt -Cardiology consultation: NPO at midnight for cardiac catheterization on Friday given stoppage of pain and present stability Type 1 diabetes: Elevated blood sugar initially at 456. Patient manages his blood sugars with insulin pump. Typically fairly well controlled - last [id number] on 03/08/21. He reports he was helping his daughter with something today and got distracted and didn't give himself enough insulin. BSG per pump presently 316 -Continue insulin by pump -Fingersticks qAC/HS -A1c pending ESRD (end stage renal disease): -Patient with ESRD. s/p failed renal transplant. -HD q M/W/. Last full treatment 07/06/21 -Nephrology consulted -Continue sevelamer 800mg po TID -Continue Calcitriol -Continue Lasix 80mg po daily -Continue Prednisone 5mg po daily. Low threshold for stress steroids if patient becomes hypotensive -Continue Sirolimus Hyperparathyroidism: -Continue Calcitriol Hyperlipidemia: -Last lipid panel in March 2021 with total cholesterol 224, TBH=057, HDL=59, RU=126 -Continue Atorvastatin 80mg daily GERD (gastroesophageal reflux disease): -Continue Protonix Diet: NPO at midnight in anticipation of cardiac catheterization DVT ppx: On heparin gtt for concern for ACS Code: FULL CODE (2) ESRD (end stage renal disease): (3) Kidney transplant failure: (4) Type 1 diabetes: (5) CAD (coronary artery disease): Admission and Anticipated Discharge Date Admission Date: July 08, 2021 Subjective Hemodialysis (since 03/2021) MWF 2/2/ DM[facility], no [facility]. Chest pain (3am onset, lasted until hospital. L arm numbness. 9/10 severity pressure constant, no exac/allev factors) resolved after Hospital arrival/tx. Has not reoccured. MGF passed at 52 from MD. Never smoker. Denies congenital issues. ROS negative except paresthesias constant L digits 1-3, new since the chest pain episode. Review of Systems Review of Systems: All systems reviewed & are unremarkable except as noted in HPI & below Physical Exam Physical Exam: General: Grossly A&O. NAD. Cooperative. HEENT: Atraumatic, normocephalic. EOMI Pulm: Faint insp crackles at bases. No respiratory distress. Cardiac: RRR, -mrg. No LE edema. Abdominal: Nontender, nondistended, soft. L BKA amputation. Results & Data Results & Data ([facility]) Vital Signs (Past 12 Hours) Vital Signs Temp Pulse Resp BP Pulse Ox 07/09/21 04:02 93 07/09/21 03:54 36.5 C 102 H 22 93/53 L 07/09/21 00:49 104/70 07/08/21 22:08 37.1 C 18 102/71 95 07/08/21 19:36 37.0 C 92 H 18 99/68 L 93 Resident Activity Tracking Resident Involvement: Resident Care Provided Care Provided: Adult [facility] Medicine
--- NOTE | 2021-07-09 06:03 | Electrocardiogram Report ---
Test Reason : Blood Pressure : / mmHG Vent. Rate : 085 BPM Atrial Rate : 085 BPM P-R Int : 194 ms QRS Dur : 092 ms QT Int : 382 ms P-R-T Axes : 051 035 098 degrees QTc Int : 454 ms Normal sinus rhythm Possible Left atrial enlargement Anterior infarct Abnormal ECG When compared with ECG of 08-JUL-2021 00:48, No significant change was found Confirmed by Harrison Jimenez ([id number]) on 07/09/2021 6:02:50 AM Referred By: REFERRED SELF Confirmed By:Harrison Jimenez
--- NOTE | 2021-07-09 06:09 | Electrocardiogram Report ---
Test Reason : Blood Pressure : / mmHG Vent. Rate : 081 BPM Atrial Rate : 081 BPM P-R Int : 204 ms QRS Dur : 102 ms QT Int : 390 ms P-R-T Axes : 060 065 106 degrees QTc Int : 453 ms Poor data quality, interpretation may be adversely affected Sinus rhythm Possible Left atrial enlargement Anterior infarct Abnormal ECG When compared with ECG of 08-JUL-2021 01:58, T wave inversion now evident in Anterolateral leads Confirmed by Harrison Jimenez ([id number]) on 07/09/2021 6:09:15 AM Referred By: REFERRED SELF Confirmed By:Harirson Jimenez
[2021-07-09] MEDS: HEPARIN SODIUM/DEXTROSE 25,000 UNITS/500 ML BAG IV SCH ×2 (06:49→21:55)
[2021-07-09 06:52] LABS: Basophils # (auto) 0.03 K/uL (0-0.2); Basophils % (auto) 0.2 %; Eosinophils # (auto) 0.21 K/uL (0-0.5); Eosinophils % (auto) 1.5 %; Hematocrit (blood only) 33.8 % (42-52); Hemoglobin 10.8 g/dL (14.0-18.0); Immature Granulocytes # (auto) 0.07 K/uL (0.00-0.02); Immature Granulocytes % (auto) 0.5 %; Lymphocytes # (auto) 2.18 K/uL (1.2-3.4); Lymphocytes % (auto) 15.2 %; Mean Corpuscular Hemoglobin 26.6 pg (25-34); Mean Corpuscular Volume 83.3 fL (80-100); Mean Platelet Volume 11.5 fL (7.4-10.4); Monocytes % (auto) 7.7 %; Neutrophils # (auto) 10.71 K/uL (1.4-6.5); Neutrophils % (auto) 74.9 %; Platelet Count 172 K/uL (130-400); RDW Coefficient of Variation 17.5 % (11.5-14.5); RDW Standard Deviation 53.2 fL (36.4-46.3); Red Blood Count 4.06 M/uL (4.7-6.1)
[2021-07-09] MEDS ORDERED: SODIUM CHLORIDE 0.9% 1000ML 1,000 ML IV PRN (07:00)
[2021-07-09] MEDS: SEVELAMER HCL 800 MG TABLET PO SCH ×3 (07:26→16:52)
[2021-07-09 07:32] LABS: Troponin I High Sensitivity 16230.1 pg/ml (0-20)
[2021-07-09 08:06] LABS: BUN Creatinine Ratio 9.3 (10-20); Creatinine Clr Calc Pharmacy 12.1 ml/min; Est GFR (African American) 9.1 ml/min; Est GFR (Non-African American) 7.9 ml/min; Potassium 5.2 mmol/L (3.5-5.1)
[2021-07-09 08:12] LABS: Estimated Average Glucose 232 mg/dl; Hemoglobin A1C 9.7 % (4.5-5.6)
--- NOTE | 2021-07-09 08:41 | Nephrology Progress Note ---
Date of Service July 09, 2021 Assessment & Plan (1) ESRD (end stage renal disease): Plan: * ESKD due to DKD. 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 AVF + bruit. 07/08/21 duplex revealed patent fistula * Will plan on heparin free HD following cardiac catheterization this morning. Orders have been entered into the EMR and HD RN notified * Will check PRP in am (2) Non-ST elevation (NSTEMI) myocardial infarction: Plan: * Troponin has progressively increased. Echo revealed new WMA in the LAD distribution * Await cardiac catheterization results (3) Hypertension: Plan: * BP controlled. Continue Metoprolol therapy (4) Type 1 diabetes: Plan: * Management as per primary service Admission and Anticipated Discharge Date Admission Date: July 08, 2021 Subjective Mr. Dalton was evaluated in the cardiac catheterization holding area this morning. He currently denies angina, dyspnea or L arm pain. He is breathing comfortably flat in bed on 4L Ox NC. He voices no new medical concerns Review of Systems Constitutional: no fever Eyes: no problem reported Ear, Nose, Mouth, Throat: no problem reported Respiratory: no cough and no dyspnea Cardiovascular: no chest pain and no edema Gastrointestinal: no abdominal pain, no nausea, no vomiting and no diarrhea/loose stools Integumentary: no rash Neurologic: no confusion Physical Exam Constitutional: not in distress Eyes: PERRL, conjunctivae normal, anicteric sclerae ENMT: external ear and nose normal, oropharynx normal Neck: trachea midline, no thyromegaly Respiratory: normal respiratory effort, lungs clear to auscultation Cardiovascular: RRR, no murmur, no edema Gastrointestinal (Abdomen): normal bowel sounds, soft, nontender, no hepatosplenomegaly Skin: no rashes, warm and dry Neurologic: awake; not confused Results & Data ([facility]) Vital Signs (Past 12 Hours) Vital Signs Temp Pulse Pulse Resp BP Pulse Ox 07/09/21 07:54 91 H 07/09/21 07:17 37.3 C 92 H 19 94/76 L 95 07/09/21 04:02 93 07/09/21 03:54 36.5 C 102 H 22 93/53 L 07/09/21 00:49 104/70 07/08/21 22:08 37.1 C 18 102/71 95 Laboratory Results Laboratory Tests 07/09/21 07/09/21 06:43 06:43 WBC 14.30 H Hgb 10.8 L Hct 33.8 L Plt Count 172 Sodium 130 L Potassium 5.2 H D Chloride 93 L Carbon Dioxide 24 BUN 70 H Creatinine 7.52 H* D Glucose 125 H Calcium 8.0 L Troponin I High Sens 27649.1 H* D Diagnostic Findings 07/08/21 ECG:Anterolateral ST changes suggestive of anterolateral ischemia 07/08/21 Echocardiogram: Compared to 03/08/21 study, LVEF has declined (35%) and LAD wall motion abnormalities are more extensive and prominent 07/08/21 L RC AVF Duplex:Patent left upper extremity AV fistula. However, velocities within portions of the fistula are diminished, as described above. This could be due to underlying stenosis 07/08/21 CXR:Cardiomegaly with mild interstitial pulmonary edema PG Care Time/CCT Total # of Minutes Spent Total Time Spent with Patient: Total time spent is greater than 50% in coordination of care (as documented) at patient's floor/unit and/or counseling patient: Coding Level of Care Code 61274 Subseq Hosp Care Lvl 3 Diagnoses ESRD (end stage renal disease) N18.6 Non-ST elevation (NSTEMI) myocardial infarction I21.4 Hypertension I10 Type 1 diabetes E10.9
[2021-07-09] MEDS ORDERED: ASPIRIN 81 MG CHEW ONE (08:49)
[2021-07-09] MEDS: FUROSEMIDE 80 MG TAB PO SCH (08:49)
[2021-07-09] MEDS: METOPROLOL SUCC 25MG EXT REL TAB PO SCH (08:49)
[2021-07-09] MEDS: rOPINIRole HCL 0.25 MG TABLET PO SCH (08:49)
[2021-07-09] MEDS: CLOPIDOGREL BISULFATE 75 MG TAB PO SCH (08:55)
[2021-07-09] MEDS ORDERED: CALCITRIOL 0.25 MCG CAPSULE PO SCH (09:00)
[2021-07-09] MEDS ORDERED: MIDAZOLAM HCL 1 MG/ML 2ML VIAL ONE ×2 (09:17→13:58)
[2021-07-09] MEDS ORDERED: niCARdipine HCL INJ 2.5 MG/ML 10 ML AMP ONE ×2 (09:17→13:58)
[2021-07-09] MEDS ORDERED: fentaNYL citrate 100 MCG/2 ML VIAL ONE ×2 (09:17→13:58)
[2021-07-09] MEDS ORDERED: HEPARIN (PORCINE) 1000 UNIT/ML 10 ML (CATH LAB USE ONLY) ONE ×3 (09:17→13:58)
[2021-07-09] MEDS ORDERED: NITROGLYCERIN/D5W 100MCG/ML 20ML SYR ONE ×2 (09:18→13:58)
[2021-07-09] MEDS ORDERED: ATROPINE SULFATE 0.1 MG/ML 10ML SYR IV ONE (09:23)
[2021-07-09] MEDS ORDERED: EPTIFIBATIDE 2 MG/ML 10 ML VIAL (CATH LAB USE ONLY) IV ONE (10:04)
[2021-07-09] MEDS ORDERED: NOREPINEPHRINE BITARTRATE 1 MG/ML 4 ML VIAL (CATH LAB USE ONLY) ONE (10:16)
[2021-07-09] MEDS ORDERED: RAPID SEQUENCE INDUCTION BAG ONE (10:31)
[2021-07-09 10:43] LABS: Chol HDL Ratio 3.1 (0-5)
--- NOTE | 2021-07-09 13:49 | Pre Anesthesia Assessment ---
Date of Service July 09, 2021 Pre Sedation Assessment Vital Signs Temp Pulse Pulse Resp BP Pulse Ox 07/09/21 07:54 91 H 07/09/21 07:17 37.3 C 92 H 19 94/76 L 95 07/09/21 04:02 93 07/09/21 03:54 36.5 C 102 H 22 93/53 L 07/09/21 00:49 104/70 07/08/21 22:08 37.1 C 18 102/71 95 07/08/21 19:36 37.0 C 92 H 18 99/68 L 93 07/08/21 15:18 75 Cardiovascular + regular rate + murmur Respiratory normal respiratory effort, lungs clear to auscultation Pre-Sedation Airway Assessment Smoking Status: Never smoker Short, Thick Neck: Yes Thyromental Distance: > or= 3.5 Finger Breadths Oral Cavity: + WNL Mallampati Class: III ASA: ASA3 NPO Status Date of Last Intake of Fluids: 07/08/21 Time of Last Intake of Fluids: 20:00 Date of Last Intake of Solid Food: 07/08/21 Time of Last Intake of Solid Foods: 20:00 Procedure Planning Contraindications for Sedation: none Current Medications Reviewed: Yes Notes The planned sedation has been discussed with the patient. Informed Consent was obtained. I have identified the patient, determined the appropriateness of sedation and have assessed the patient immediately prior to the procedure. All medicine(s) and interventions are by my order.
--- NOTE | 2021-07-09 13:55 | Cardiology Progress Note ---
Date of Service July 09, 2021 Assessment & Plan (1) Non-ST elevation (NSTEMI) myocardial infarction: (2) Ischemic cardiomyopathy: (3) CAD (coronary artery disease): (4) Aortic stenosis: (5) Hypertension: (6) Hyperlipidemia: (7) Mitral regurgitation: (8) ESRD (end stage renal disease): Plan: ASSESSMENT/PLAN: 1. NSTEMI: Has been chest pain-free since 07/08/2021 morning. Multivessel CAD noted on coronary angiography. Recommend evaluation by CT surgery to see if he is a candidate for CABG verses PCI. Culprit vessel likely LAD given echo findings. Continue heparin drip for a total of 48 hours. Continue aspirin. Continue beta-raine. Not on MONA-inhibitor due to ESRD and was hyperkalemic this morning. 2. Ischemic cardiomyopathy: LV systolic function is now moderately reduced. Hopefully there will be improvement if revascularization is possible. Continue beta-raine in the form of metoprolol succinate. No MONA-inhibitor given end- stage renal disease. No aldosterone receptor antagonist given end-stage renal disease. Volume is managed by dialysis. Consider life vest if LV systolic function is not improved before discharge. Long-term, if EF remains < or = 35% at 40 days beyond NC, consider ICD for primary prevention. 3. Multivessel CAD: Multivessel CAD involving LAD, large OM1, RCA, and also occluded diagonal. Recommend CT surgery evaluation to explore options of revascularization. Medical therapy as noted. 4. Aortic stenosis: Non severe. Monitor over time. 5. Mitral regurgitation: Non severe. Continue to monitor over time. 6. Dyslipidemia: High-intensity statin therapy. 7. Hypertension: Has a history of hypertension however blood pressure has been mostly mildly hypotensive or normotensive here. Asymptomatic in this regard. 8. ESRD: Nephrology is following to manage HD. Hemodialysis after catheterization. Was mildly hyperkalemic this morning and therefore sodium bicarbonate was given prior to the catheterization procedure. 9. Disposition: Patient care communicated with Dr. Oneil of Nephrology and Dr. Linares of the primary hospitalist service. Attempted to contact his via telephone, however there was no answer. Recommend transfer to tertiary care center to explore revascularization options. On follow-up, recommend follow-up with Dr. Hadley, his primary automotive instructor. Admission and Anticipated Discharge Date Admission Date: July 08, 2021 Subjective No further chest pain. Denies shortness of breath, syncope, near-syncope, palpitations, edema, or bleeding. Review of systems: As above. Physical Exam Physical Exam: Gen.: No acute distress. Alert and oriented. HEENT: Anicteric sclera. Neck: Thick neck. Cardiac: PMI was nonpalpable. No ventricular heave. Regular. Normal S1-S2. 1/6 early peaking systolic ejection murmur heard best at right upper sternal border. No rubs or gallops. Pulmonary: Clear to auscultation bilaterally without wheezes, rales, or rhonchi. Abdomen: Soft, nontender, nondistended, with normoactive bowel sounds. No bruits noted. Extremities: 1+ right radial pulse. Left upper extremity AV fistula. 2+ right dorsalis pedis pulse. Left BKA. Trace right lower extremity edema. No cyanosis. Psychiatric: Affect appears appropriate. Results & Data ([facility]) Vital Signs (Past 12 Hours) Vital Signs Temp Pulse Pulse Resp BP Pulse Ox 07/09/21 07:54 91 H 07/09/21 07:17 37.3 C 92 H 19 94/76 L 95 07/09/21 04:02 93 07/09/21 03:54 36.5 C 102 H 22 93/53 L Laboratory Results Laboratory Results - last 24 hr 07/08/21 07/08/21 07/08/21 04:19 04:19 12:28 WBC RBC Hgb Hct MCV MCH MCHC RDW Std Deviation RDW Coeff of Michelle Plt Count MPV Immature Gran % (Auto) Neut % (Auto) Lymph % (Auto) [place] % (Auto) Eos % (Auto) Baso % (Auto) Neut # (Auto) Lymph # (Auto) [place] # (Auto) Eos # (Auto) Baso # (Auto) Immature Gran # (Auto) APTT PTT Ratio Sodium Potassium Chloride Carbon Dioxide Anion Gap BUN Creatinine Est Cr Clr Drug Dosing Est GFR ( Amer) Est GFR (Non-Af Amer) BUN/Creatinine Ratio Glucose POC Glucose Estimat Average Glucose 232 Hemoglobin A1c 9.7 H Calcium Troponin I High Sens B-Natriuretic Peptide 1182 H Triglycerides Cholesterol LDL Cholesterol, Calc VLDL Cholesterol, Calc HDL Cholesterol Cholesterol/HDL Ratio Nasal Screen MRSA (PCR) Negative 07/08/21 07/08/21 07/08/21 16:10 19:42 20:29 WBC RBC Hgb Hct MCV MCH MCHC RDW Std Deviation RDW Coeff of Michelle Plt Count MPV Immature Gran % (Auto) Neut % (Auto) Lymph % (Auto) [place] % (Auto) Eos % (Auto) Baso % (Auto) Neut # (Auto) Lymph # (Auto) [place] # (Auto) Eos # (Auto) Baso # (Auto) Immature Gran # (Auto) APTT 43.9 H PTT Ratio 1.6 Sodium Potassium Chloride Carbon Dioxide Anion Gap BUN Creatinine Est Cr Clr Drug Dosing Est GFR ( Amer) Est GFR (Non-Af Amer) BUN/Creatinine Ratio Glucose POC Glucose 141 H Estimat Average Glucose Hemoglobin A1c Calcium Troponin I High Sens 50335.3 H* B-Natriuretic Peptide Triglycerides Cholesterol LDL Cholesterol, Calc VLDL Cholesterol, Calc HDL Cholesterol Cholesterol/HDL Ratio Nasal Screen MRSA (PCR) 07/08/21 07/09/21 07/09/21 22:37 02:39 06:43 WBC 14.30 H RBC 4.06 L Hgb 10.8 L Hct 33.8 L MCV 83.3 MCH 26.6 MCHC 32.0 RDW Std Deviation 53.2 H RDW Coeff of Michelle 17.5 H Plt Count 172 MPV 11.5 H Immature Gran % (Auto) 0.5 Neut % (Auto) 74.9 Lymph % (Auto) 15.2 [place] % (Auto) 7.7 Eos % (Auto) 1.5 Baso % (Auto) 0.2 Neut # (Auto) 10.71 H Lymph # (Auto) 2.18 [place] # (Auto) 1.10 H Eos # (Auto) 0.21 Baso # (Auto) 0.03 Immature Gran # (Auto) 0.07 H APTT 26.7 PTT Ratio 1.0 Sodium Potassium Chloride Carbon Dioxide Anion Gap BUN Creatinine Est Cr Clr Drug Dosing Est GFR ( Amer) Est GFR (Non-Af Amer) BUN/Creatinine Ratio Glucose POC Glucose Estimat Average Glucose Hemoglobin A1c Calcium Troponin I High Sens 97789.3 H* B-Natriuretic Peptide Triglycerides Cholesterol LDL Cholesterol, Calc VLDL Cholesterol, Calc HDL Cholesterol Cholesterol/HDL Ratio Nasal Screen MRSA (PCR) 07/09/21 07/09/21 07/09/21 06:43 06:43 07:20 WBC RBC Hgb Hct MCV MCH MCHC RDW Std Deviation RDW Coeff of Michelle Plt Count MPV Immature Gran % (Auto) Neut % (Auto) Lymph % (Auto) [place] % (Auto) Eos % (Auto) Baso % (Auto) Neut # (Auto) Lymph # (Auto) [place] # (Auto) Eos # (Auto) Baso # (Auto) Immature Gran # (Auto) APTT PTT Ratio Sodium 130 L Potassium 5.2 H D Chloride 93 L Carbon Dioxide 24 Anion Gap 13 H BUN 70 H Creatinine 7.52 H* D Est Cr Clr Drug Dosing 12.1 Est GFR ( Amer) 9.1 Est GFR (Non-Af Amer) 7.9 BUN/Creatinine Ratio 9.3 L Glucose 125 H POC Glucose 127 H Estimat Average Glucose Hemoglobin A1c Calcium 8.0 L Troponin I High Sens 91701.1 H* D B-Natriuretic Peptide Triglycerides 109 Cholesterol 167 LDL Cholesterol, Calc 91 VLDL Cholesterol, Calc 22 HDL Cholesterol 54 Cholesterol/HDL Ratio 3.1 Nasal Screen MRSA (PCR) Diagnostic Findings Cardiac catheterization 07/09/2021: Coronary angiography: 1. Left main: Large-caliber vessel. Calcifications noted. No significant CAD. 2. Left anterior descending: Large caliber vessel with significant calcifica tions throughout the proximal and mid portions. Proximal LAD 40%. Diffuse severe CAD within the mid LAD including 95% stenosis with sequential 80% and 70% stenotic lesions. Apical LAD 80%. AKSHAT-3 flow. D1 ostial 100%. 3. Circumflex: Codominant vessel. Calcifications noted. Large-caliber vessel. Mid circumflex 20%. Large OM1 with proximal 90% stenosis. AKSHAT-3 flow. Circumflex PDA large in caliber without significant CAD. 4. Right coronary artery: Codominant vessel. Heavily calcified RCA. Severe diffuse CAD within the mid RCA. Early mid RCA 95%. Mid RCA 100%. Left to right collaterals. 5. Ramus intermedius: Small caliber ramus without significant CAD. Medications Administered Current Inpatient Medications Acetaminophen (Acetaminophen 325 Mg Tab) 650 mg PO Q4H PRN PRN Reason: Pain or Fever Stop: 08/07/21 04:15 Allopurinol (Allopurinol 300 Mg Tab) 300 mg PO HS REBECCA Stop: 08/07/21 20:59 Last Admin: 07/08/21 20:10 Dose: 300 mg Documented by: Aspirin (Aspirin 81 Mg Ectab) 81 mg PO [facility] Stop: 08/07/21 20:59 Last Admin: 07/08/21 20:11 Dose: 81 mg Documented by: Atorvastatin Calcium (Atorvastatin 40 Mg Tab) 80 mg PO [facility] Stop: 08/07/21 20:59 Last Admin: 07/08/21 20:12 Dose: 80 mg Documented by: Calcitriol (Calcitriol 0.25 Mcg Capsule) 0.5 mcg PO Q2D [facility] Stop: 08/08/21 08:59 Last Admin: 07/09/21 08:49 Dose: Not Given Documented by: Clopidogrel Bisulfate (Clopidogrel Bisulfate 75 Mg Tab) 75 mg PO [facility] Stop: 08/07/21 20:59 Last Admin: 07/09/21 08:55 Dose: 75 mg Documented by: Dextrose (Dextrose 50% 50 Ml Syringe) 25 - 50 ml IV UD PRN; Protocol PRN Reason: Hypoglycemia Protocol Stop: 08/07/21 04:15 Diclofenac Sodium (Diclofenac Sod 1% Gel 100 Gm Tube) 2 gm EXT QID PRN PRN Reason: Pain Stop: 08/07/21 04:15 Docusate Sodium (Docusate Sodium 100 Mg Cap) 100 mg PO BID PRN PRN Reason: Constipation Stop: 08/07/21 04:15 Furosemide (Furosemide 80 Mg Tab) 80 mg PO DAILY [facility] Stop: 08/07/21 08:59 Last Admin: 07/09/21 08:49 Dose: Not Given Documented by: Glucagon (Glucagon For Inj 1 Mg Vial) 1 mg SQ UD PRN; Protocol PRN Reason: Hypoglycemia Protocol Stop: 08/07/21 04:15 Glucose (Glucose 10 Tabs/Tube) 4 - 8 tabs PO UD PRN; Protocol PRN Reason: Hypoglycemia Protocol Stop: 08/07/21 04:15 Glucose (Glucose 40% Gel 15 Gm Tube) 15 - 30 gm PO UD PRN; Protocol PRN Reason: Hypoglycemia Protocol Stop: 08/07/21 04:15 Heparin Sodium/Dextrose (Heparin Sodium/Dextrose) 25,000 units in 500 mls @ 24 mls/hr IV .[id number] [facility]; Protocol Stop: 08/07/21 01:59 Last Admin: 07/09/21 06:49 Dose: 1,200 units/hr, 24 mls/hr Documented by: Metoprolol Succinate (Metoprolol Succ 25mg Ext Rel Tab) 75 mg PO DAILY REBECCA Stop: 08/07/21 08:59 Last Admin: 07/09/21 08:49 Dose: Not Given Documented by: Miscellaneous (Carbohydrates For Hypoglycemia ) 15 - 30 gm PO UD PRN PRN Reason: Hypoglycemia Protocol Stop: 08/07/21 04:15 Morphine Sulfate (Morphine Sulfate 2 Mg/Ml Carp) 1 mg IV Q2H PRN PRN Reason: Chest Pain Stop: 07/22/21 04:15 Last Admin: 07/08/21 08:10 Dose: 1 mg Documented by: Nitroglycerin (Nitroglycerin Sl 0.4 Mg/Tab Tab) 0.4 mg SL PRN PRN PRN Reason: Chest Pain Stop: 08/07/21 04:15 Last Admin: 07/08/21 07:35 Dose: 0.4 mg Documented by: Ondansetron HCl (Ondansetron Inj 2 Mg/Ml 2 Ml Vial) 4 mg IV Q6H PRN PRN Reason: Nausea Stop: 08/07/21 04:15 Last Admin: 07/09/21 00:45 Dose: 4 mg Documented by: Pantoprazole Sodium (Pantoprazole 40 Mg Tab) 40 mg PO HS REBECCA Stop: 08/07/21 20:59 Last Admin: 07/08/21 20:12 Dose: 40 mg Documented by: Prednisone (Prednisone 5 Mg Tab) 5 mg PO HS REBECCA Stop: 08/07/21 20:59 Last Admin: 07/08/21 20:12 Dose: 5 mg Documented by: Pregabalin (Pregabalin 150 Mg Cap) 150 mg PO HS REBECCA Stop: 08/07/21 20:59 Last Admin: 07/08/21 20:15 Dose: 150 mg Documented by: Ropinirole HCl (Ropinirole Hcl 0.25 Mg Tablet) 0.5 mg PO DAILY REBECCA Stop: 08/07/21 08:59 Last Admin: 07/09/21 08:49 Dose: Not Given Documented by: Sertraline HCl (Sertraline Hcl 100 Mg Tablet) 100 mg PO HS REBECCA Stop: 08/07/21 20:59 Last Admin: 07/08/21 20:12 Dose: 100 mg Documented by: Sevelamer HCl (Sevelamer Hcl 800 Mg Tablet) 800 mg PO TIDM REBECCA Stop: 08/07/21 07:59 Last Admin: 07/09/21 11:13 Dose: Not Given Documented by: Sirolimus (Sirolimus 0.5 Mg Tablet) 4 mg PO HS REBECCA Stop: 08/07/21 20:59 Last Admin: 07/08/21 20:10 Dose: 4 mg Documented by: PG Care Time/CCT Total # of Minutes Spent Total Time Spent with Patient: Total time spent is greater than 50% in coordination of care (as documented) at patient's floor/unit and/or counseling patient: Coding Level of Care Code 62437 Subseq Hosp Care Lvl 3 Diagnoses Non-ST elevation (NSTEMI) myocardial infarction I21.4 Ischemic cardiomyopathy I25.5 CAD (coronary artery disease) I25.10 Aortic stenosis I35.0 Hypertension I10 Hyperlipidemia E78.5 Mitral regurgitation I34.0 ESRD (end stage renal disease) N18.6
[2021-07-09] MEDS ORDERED: SODIUM BICARB 8.4% INJ 50 MEQ/50 ML SYR IV ONE (14:12)
--- NOTE | 2021-07-09 14:49 | Post Operative Brief Note ---
Cardiology Brief Post Op Date of Surgery July 09, 2021 Pre & Post Diagnosis Operation Date: 07/09/21 09:30 <No data on this case meets the specified criteria> Procedure coronary angiography Rehabilitation Program Manager Harrison Jimenez MD [employer] Scient[employer] Estimated Blood Loss 20 Findings See Below Severe multivessel CAD. Full report to follow. Complications none
--- NOTE | 2021-07-09 14:49 | Post Anesthesia Assessment ---
Date of Service July 09, 2021 Post Sedation Assessment Vital Signs Temp Pulse Pulse Resp BP Pulse Ox 07/09/21 14:40 75 18 176/127 H 96 07/09/21 07:54 91 H 07/09/21 07:17 37.3 C 92 H 19 94/76 L 95 07/09/21 04:02 93 07/09/21 03:54 36.5 C 102 H 22 93/53 L 07/09/21 00:49 104/70 07/08/21 22:08 37.1 C 18 102/71 95 07/08/21 19:36 37.0 C 92 H 18 99/68 L 93 07/08/21 15:18 75 Recovery Score Activity: Moves 4 extremities Respiration: Deep Breath/Cough Circulation: +/-20% PreAnes Value Consciousness: Fully Awake Oxygen Saturation: > 92% On Room Air Post Anesthesia Score: 10 Discharge Sedation Level of Care: Fast Track Phase II Post Sedation Plan On clinical assessment, the patient appears to have tolerated the sedation wi thout complications. Patient is recovering as anticipated. Patient will continue to be monitored by nursing and may be discharged when sedation discharge criteria are met per below protocol. Upon Completions of procedure up to 15 minutes continue every 5 minute vital signs and the P.A.R. score; then discharge to a Phase I or Fast Track to Phase II per the following guidelines: * Discharge Patient to appropriate Phase II area if PAR is 8 or greater or return to pre- procedure baseline. The post - procedure orders will be as directed. * If PAR score is less than 8 or not return to pre-procedure baseline then patient will follow Phase I monitoring till PAR is reached for Phase II. The Phase I may be done in procedure room or may call to secure a Phase I area. * If naloxone or flumazenil are used for reversal, hold in Phase I for continued monitoring from when last reversal dose was given for a minimum of 60 minutes or longer pending the nurse and/or physician discretion of patient condition before discharge to Phase II. Please call the Sedation Physician to re-evaluate and complete post-note for discharge to Phase II area. Do NOT discharge from procedure sedation or Phase 1 until post- sedation evaluation note is complete by procedure /sedation MD Sedation Discharge Instructions to be given to the patient at discharge to home.
--- NOTE | 2021-07-09 15:05 | Cardiac Catheterization ---
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 Cardiac Status Clinical evaluation leading to the procedure CAD Presenation: Non STEMI Anginal Classification: CCS IV Heart Failure: No Cardiogenic Shock within 24 Hours: No Cardiac Arrest within 24 Hours: No Imaging Studies Past 6 Months: Yes Stress Studies Past 6 Months: No Coronary Anatomy Dominant: Co-Dominant Diagnostic Physicians Name: Harrison Jimenez MD Status: Elective Closure Device Percutaneous Entry Location: Radial Closure Device: Radial Band Recommendations: Management Recommendatons Cardiac Cath Procedure Full Procedure Date July 09, 2021 Pre-Procedure Diagnosis Pre-Procedure Diagnosis: Non STEMI and CAD AUC Score AUC Score: 9 Post-Procedure Diagnosis Post-Procedure Diagnosis: Severe CAD Procedure(s) Performed Procedure(s) Performed: Coronary Angiography Wire Weaver [employer]oth Harrison Jimenez MD [employer] Pressing Machine Operator(s) Infusion Rn Estimated Blood Loss Estimated Blood Loss: < 25 ml Medication(s) Medication(s): Fentanyl, Heparin, Lidocaine 1%, Nicardipine and Versed Summary of Findings Procedures: 1. Coronary angiography 2. Moderate sedation Indication: 45-year-old gentleman with a history significant for CAD and D1 PCI, type 1 diabetes, hypertension, dyslipidemia, and ESRD on HD who presented with NSTEMI. Echo suggests LAD infarct with moderately reduced LV systolic function. Coronary angiography: 1. Left main: Large-caliber vessel. Calcifications noted. No significant CAD. 2. Left anterior descending: Large caliber vessel with significant calcifications throughout the proximal and mid portions. Proximal LAD 40%. Diffuse severe CAD within the mid LAD including 95% stenosis with sequential 80% and 70% stenotic lesions. Apical LAD 80%. AKSHAT-3 flow. D1 ostial 100%. 3. Circumflex: Codominant vessel. Calcifications noted. Large-caliber vessel. Mid circumflex 20%. Large OM1 with proximal 90% stenosis. AKSHAT-3 flow. Circumflex PDA large in caliber without significant CAD. 4. Right coronary artery: Codominant vessel. Heavily calcified RCA. Severe diffuse CAD within the mid RCA. Early mid RCA 95%. Mid RCA 100%. Left to right collaterals. 5. Ramus intermedius: Small caliber ramus without significant CAD. Moderate sedation: 1. Sedation start time: 2:15 PM 2. Sedation end time: 2:34 PM Procedure notes: 1. The right radial artery was easily cannulated with access needle. The access wire was easily advanced. 6/5 [place]er glide sheath was unable to be fully advanced, but the tip remained within the right radial artery. 2. J-tipped wire was unable to be advanced. Glidewire was able to be advanced throughout the radial artery and into the aorta. 3. Diagnostic angiography was performed with 4 [place] Konger JR4 and JL 3.5 diagnostic catheters. The 4 [place]er catheters were easily advanced to central circulation. Impression: 1. Severe multivessel CAD including mid LAD, proximal large OM1, and occluded D1 and mid RCA. 2. Left to right collaterals. 3. Codominant system. Plan: 1. Recommend evaluation by CT surgery to determine if he is a suitable CABG candidate. 2. Has remained chest pain-free. Continue medical therapy. 3. He is scheduled for hemodialysis immediately following this procedure. 4. Optimize medical therapy for moderately reduced LV systolic function. Hemodynamics Rest Ao:: 102/70 Final Ao: 90/63 LV: n/a Recommendations Recommendations: Management Recommendatons Specimens Specimens: None Radiation Exposure (mGy) 817 mGy. Fluoro time 4 min. Contrast (mls) 40 ml Procedural Complication(s) None Disposition PCU I attest to the content of the Intraoperative Record and any orders documented therein. Any exceptions are noted below. [facility] Card Cath Procedure Codes Cardiac Catheterization Procedure 1: Cardiovascular Cath Procedures: 94081 Coronaries Moderate Sedation Procedure 1: Sedation/Anesthesia: 39377 Mod Sedation by the same physician;Init15 Min Child Age 5 & Up Procedure 2: Sedation/Anesthesia: 64591 Mod Sedation by the same physician; Ea [id number] Minutes PG Care Time/CCT Total # of Minutes Spent Total Time Spent with Patient: Total time spent is greater than 50% in coordination of care (as documented) at patient's floor/unit and/or counseling patient:
--- NOTE | 2021-07-09 15:25 | Discharge Summary ---
Date of Service July 09, 2021 Admission HPI Per Admitting Provider Constantine Dalton is a 45yo male with history of Type I DM well managed with insulin pump, ESRD s/p renal transplant now on HD w //, CAD s/p anterolateral STEMI with MAR placement to diagonal 03/25/2015 presenting with chest pain. Patient was getting ready for bed when he developed acute left sided chest pain around 21:30. Pain located in the left chest with radiation down the left arm and into the back of the neck - heaviness to left arm. Severe, 8/10 with associated nausea and lightheadedness. He took a Nexium at home thinking it may be heart burn with no relief. Patient was administered morphine in the ER with slight improvement. Chest pain resolved with ASA and Nitro. Presently chest pain free. No additional complaints. Denies fever, chills, cough, SOB, abdominal pain, nausea, vomiting, diarrhea or constipation. Patient is active and independent. Does not experience exertional chest pain or shortness of breath. ER Course: ASA 324mg, Heparin bolus and gtt, Nitro 0.4mg x 1, Zofran 4mg IV, Morphine 4mg IV Admission Exam Per Admitting Provider General: patient resting comfortably, NAD, non-toxic in appearance, AA&O x 4 Skin: warm, dry, intact, no rashes or lesions HEENT: NC/AT, PERRL, EOMI, anicteric sclera, conjunctiva without injection, external ear normal to inspection and nontender, nares patent, moist mucus membranes, dentition intact, no oropharyngeal lesions, neck supple, trachea midline, no LAD, no thyromegaly, no JVD Heart: +S1/S2, regular, 3/6 blowing murmur over mitral valve, no rubs, gallops Lungs: equal air entry bilaterally, no rales/rhonchi/wheezes Abd: +BS, soft, NT/ND, no masses/organomegaly/ascites, peritoneal dialysis catheter in place with no evidence of infection/drainage/peritonitis Ext: warm, 2+ pulses in UE/LE bilaterally, no clubbing/cyanosis or edema, left wrist fistula with palpable thrill, 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 NAD. Cooperative. HEENT: Atraumatic, normocephalic. EOMI Pulm: Faint insp crackles at bases. Symmetrical chest rise. No respiratory distress. Cardiac: RRR, -mrg. No LE edema. Abdominal: Nontender, nondistended, soft. Discharge Data Allergies Allergy/AdvReac Type Severity Reaction Status Date / Time pork derived (porcine) Allergy Intermediate Hives with Verified 07/08/21 04:30 Pork Insulin Consultations 07/08/21 02:36 ED Decision to Admit Stat 07/08/21 04:16 Consult Cardiology Routine Consult Nephrology Routine Procedures Performed Operation Date: 07/09/21 09:30 Actual Procedures p Cath, Coronaries ONLY (no LV) - Harrison Jimenez MD s Cineradiography w/Routine Exam - Harrison Jimenez MD Ordered Studies Cardiac Enzymes 07/08/21 07/08/21 07/08/21 Range/Units 04:19 16:10 22:37 Troponin I High Sens 04755.3 H* 92835.3 H* (0-20) pg/ml B-Natriuretic Peptide 1182 H (0-100) pg/ml 07/09/21 Range/Units 06:43 Troponin I High Sens 76155.1 H* D (0-20) pg/ml B-Natriuretic Peptide (0-100) pg/ml Coagulation 07/08/21 07/08/21 07/09/21 Range/Units 04:19 19:42 02:39 APTT 43.9 H 26.7 (21.0-31.0) Seconds B-Natriuretic Peptide 1182 H (0-100) pg/ml Lipids 07/09/21 Range/Units 06:43 Triglycerides 109 (0-150) mg/dl Cholesterol 167 (0-200) mg/dl HDL Cholesterol 54 mg/dl Cholesterol/HDL Ratio 3.1 (0-5) CBC 07/09/21 Range/Units 06:43 WBC 14.30 H (4.8-10.8) K/uL RBC 4.06 L (4.7-6.1) M/uL Hgb 10.8 L (14.0-18.0) g/dL Hct 33.8 L (42-52) % Plt Count 172 (130-400) K/uL Neut # (Auto) 10.71 H (1.4-6.5) K/uL Lymph # (Auto) 2.18 (1.2-3.4) K/uL [place] # (Auto) 1.10 H (0.11-0.59) K/uL Eos # (Auto) 0.21 (0-0.5) K/uL Baso # (Auto) 0.03 (0-0.2) K/uL Comprehensive Metabolic Panel 07/09/21 Range/Units 06:43 Sodium 130 L (136-145) mmol/L Potassium 5.2 H D (3.5-5.1) mmol/L Chloride 93 L (98-107) mmol/L Carbon Dioxide 24 (21-32) mmol/L BUN 70 H (6-23) mg/dl Creatinine 7.52 H* D (0.6-1.4) mg/dl Glucose 125 H (70-99(Fasting)) mg/dl Calcium 8.0 L (8.5-10.1) mg/dl Intake and Output 07/09/21 07/09/21 07/09/21 06:59 14:59 22:59 Intake Total 173.083 / 890.000 Balance 173.083 / 890.000 Intake: IV 173.083 / 500.000 Heparin Sodium/Dextrose 25,000 173.083 / 500.000 units In 500 ml @ 1,200 UNITS/ HR 24 mls/hr IV .[id number] [facility] Rx #:[id number] Other: Other Intake Source NPO Weight 80.2 kg Weight Measurement Method Built in [facility] Chest X-Ray 07/08/21 00:47 XR chest 1V portable CLINICAL HISTORY: Atypical chest pain. COMPARISON STUDY: Chest radiograph March 07, 2021. FINDINGS: Enlargement of the cardiac silhouette is similar to prior exam. There is no pneumothorax or pleural effusion. Interstitial thickening is noted. Slightly increased when compared to prior exam. Old left fourth rib fracture is incidentally noted IMPRESSION: Cardiomegaly with mild interstitial pulmonary edema. ACT 112: Negative or not required by law. Electronically signed by: Carl Terry M.D. 07/08/2021 7:47 AM Hemodialysis Access [facility] 07/08/21 06:21 hemodialysis access CLINICAL HISTORY: assess flow, fistula COMPARISON STUDY: Left upper extremity doppler ultrasound May 29, 2009. TECHNIQUE: Grayscale, color duplex Doppler sonography of the left upper extremity AV fistula was performed. FINDINGS: A portion of the old left upper arm AV fistula is occluded. This fistula was shown on ultrasound of May 29, 2009. A new left wrist AV fistula is noted. This fistula is patent. No thrombus is a identified within the fistula. No aneurysm is identified. Peak systolic velocities within the fistula range up to 309 cm/s. This velocity is within normal limits. However, decreased velocities are noted within portions of the fistula, at peak systolic velocity of 20 cm/s. IMPRESSION: 1. Patent left upper extremity AV fistula. However, velocities within portions of the fistula are diminished, as described above. This could be due to underlying stenosis. 2. Old, occluded left upper arm AV fistula. ACT 112: Negative or not required by law. Electronically signed by: Carl Terry M.D. 07/08/2021 11:06 AM Hospital Course (1) Non-ST elevation (NSTEMI) myocardial infarction: 45yo male with history of CAD s/p anterolateral AZ in 2016 with stent placement, ESRD on HD, DM-I presenting with chest pain, similar to prior AZ.Initial EKG with subtle ST changes, no STEMI. Presently chest pain free. Transfer to [facility] Dr. [place]. Awaiting bed placement. Will transfer via ACLS and continue heparin gtt. NSTEMI: -Patient with history of CAD s/p AZ with MAR placement in 2016. Presenting with chest pain as described alleviated by SL nitro and morphine -Echo demonstrating EF of 35%, with akinesis of the apex and mid anterior wall, hypokinesis of the midanteroseptum, mid-inferior and mid-anterolateral [place] [address] -Continue ASA, Plavix, Metoprolol, and Atorvastatin -Continue heparin gtt -Cardiology consultation: cardiac catheterization on 07/09/21: Impression: 1. Severe multivessel CAD including mid LAD, proximal large OM1, and occluded D1 and mid RCA. 2. Left to right collaterals. 3. Codominant system. - Recommend evaluation by CT surgery to determine if he is a suitable CABG candidate. Type 1 diabetes: - A1c 7.6 03/08/21. 9.7 on 07/08/21. Continue home insulin pump and continuous blood glucose monitoring. ESRD (end stage renal disease): -Patient with ESRD. s/p failed renal transplant. -HD q M/W/F. Last session today 07/09/21. -Nephrology consulted -Continue sevelamer 800mg po TID -Continue Calcitriol -Continue Lasix 80mg po daily -Continue Prednisone 5mg po daily. Low threshold for stress steroids if patient becomes hypotensive -Continue Sirolimus Hyperparathyroidism: -Continue Calcitriol Hyperlipidemia: -Last lipid panel in March 2021 with total cholesterol 224, JUE=374, HDL=59, KW=336 -Continue Atorvastatin 80mg daily GERD (gastroesophageal reflux disease): -Continue Protonix Diet: NPO at midnight Anticoag: On heparin gtt Code: FULL CODE (2) ESRD (end stage renal disease): (3) Kidney transplant failure: (4) Type 1 diabetes: (5) CAD (coronary artery disease): Total Time Total Time Spent Total Time Spent (In Minutes): <30 Discharge Plan Discharge Items Patient Disposition: Transfer Acute Care Hospital Reason For Visit: CHEST PAIN Discharge Diagnosis: NSTEMI Activity: Per Instructions section Non-emergency contact: Primary Care Provider Call non-emergency contact if: you have any medication questions, your symptoms worsen and you have a fever Follow-up/Referrals: Edi Amador, [Primary Care Provider] - Diet: Nothing by Mouth Addtl Attending Provider Instructions: 45yo male with history of CAD s/p anterolateral AZ in 2016 with stent placement, ESRD on HD, DM-I presenting with chest pain, similar to prior AZ.Initial EKG with subtle ST changes, no STEMI. Presently chest pain free. Transfer to [facility] Dr. [place]. Awaiting bed placement. Will transfer via ACLS and continue heparin gtt. NSTEMI: -Patient with history of CAD s/p AZ with MAR placement in 2016. Presenting with chest pain as described alleviated by SL nitro and morphine -Echo demonstrating EF of 35%, with akinesis of the apex and mid anterior wall, hypokinesis of the midanteroseptum, mid-inferior and mid-anterolateral [place] [address] -Continue ASA, Plavix, Metoprolol, and Atorvastatin -Continue heparin gtt -Cardiology consultation: cardiac catheterization on 07/09/21: Impression: 1. Severe multivessel CAD including mid LAD, proximal large OM1, and occluded D1 and mid RCA. 2. Left to right collaterals. 3. Codominant system. - Recommend evaluation by CT surgery to determine if he is a suitable CABG candidate. Type 1 diabetes: - A1c 7.6 03/08/21. 9.7 on 07/08/21. Continue home insulin pump and continuous blood glucose monitoring. ESRD (end stage renal disease): -Patient with ESRD. s/p failed renal transplant. -HD q M/W/F. Last session today 07/09/21. -Nephrology consulted -Continue sevelamer 800mg po TID -Continue Calcitriol -Continue Lasix 80mg po daily -Continue Prednisone 5mg po daily. Low threshold for stress steroids if patient becomes hypotensive -Continue Sirolimus Hyperparathyroidism: -Continue Calcitriol Hyperlipidemia: -Last lipid panel in March 2021 with total cholesterol 224, KPR=615, HDL=59, BW=315 -Continue Atorvastatin 80mg daily GERD (gastroesophageal reflux disease): -Continue Protonix Diet: NPO at midnight Anticoag: On heparin gtt Code: FULL CODE Pending Studies at Discharge: No Stand-Alone Forms: [facility] Skilled Items Patient informed of condition?: Yes DNR: No Discharge Level of Care: Other Communicable Disease: No Discharge Prognosis: Stable Lines: None Urinary Catheter: No Medications and DC Order Prescriptions: Continued allopurinol 300 mg tablet 300 mg PO HS Qty: 90 RF: 3 prednisone 5 mg tablet 5 mg PO HS Qty: 90 RF: 3 aspirin 81 mg tablet,delayed release (DR/EC) 81 mg PO HS Qty: 30 RF: 5 ergocalciferol (vitamin D2) 1,250 mcg (50,000 unit) capsule 1,250 mcg PO .weekly Qty: 24 RF: 0 sertraline 100 mg tablet 100 mg PO HS Qty: 30 RF: 6 clopidogrel [Plavix] 75 mg tablet 75 mg PO HS Qty: 30 RF: 5 atorvastatin 80 mg tablet 80 mg PO HS Qty: 90 RF: 3 furosemide [Lasix] 40 mg tablet 80 mg PO DAILY Qty: 60 RF: 5 Hold Instructions: hold now pregabalin [Lyrica] 75 mg capsule 150 mg PO HS Qty: 90 RF: 5 ropinirole 0.5 mg tablet 0.5 mg PO DAILY Qty: 90 RF: 3 (DME) [employer] G6 Sensor Device See Dose Instructions .ROUTE .MEDSUPPLY Qty: 9 RF: 3 (DME) Dexcom G6 Transmitter Device See Dose Instructions .ROUTE .MEDSUPPLY Qty: 1 RF: 3 sirolimus 2 mg tablet 4 mg PO HS Qty: 180 RF: 3 potassium chloride 10 mEq tablet extended release 20 meq PO DAILY Qty: 180 RF: 3 sevelamer carbonate [Renvela] 800 mg tablet 800 mg PO TID Qty: 270 RF: 2 Glucagon Emergency Kit (human) 1 mg recon soln 1 mg IM DIRECTED PRN (Reason: LOW BLOOD SUGAR) RF: 0 pantoprazole 40 mg tablet,delayed release (DR/EC) 40 mg PO HS RF: 0 insulin aspart U-100 [Novolog U-100 Insulin aspart] 100 unit/mL solution 60 unit subcut DAILY 90 Days Qty: 60 RF: 0 (DME) insulin syringe-needle U-100 [BD Insulin Syringe] 0.5 mL 29 gauge x 1/2" syringe See Rx Instructions .Route Qty: 200 RF: 0 calcitriol 0.5 mcg capsule 0.5 mcg PO Q OTHER DAY RF: 0 clindamycin phosphate 1 % solution 1 applic topical BID PRN (Reason: Rash) RF: 0 metoprolol succinate 25 mg tablet extended release 24 hr 75 mg PO DAILY RF: 0 diclofenac sodium 1 % gel 2 g topical QID PRN (Reason: Pain) RF: 0 Discharge Orders: Discharge Order (Routine); Ordered 07/09/21 Ordered By: Russ Brizuela Admission Data Admit Date/Time: 07/08/21 03:01 Attending Provider: Teofilo Linares Admit Provider: Ronel Lima Primary Care Provider: Edi Amador Other Providers: Ronel Lima ; Harrison Jimenez ; Edi Amador ; Araceli Powell Supervising Physician Co-Signing Physician Notes I personally examined the patient and verified all landin points of history and exam, discussed case, and agree with decision making with Dr Brizuela seen post cath - d/w cardiology - for transfer for possible CABG. getting HD started when i see him. pain free. understands situation vitals noted nad heent nc at mmm breathing unlabored no accessory muscles good effort skin no rashes no pallor or icterus neuro no focal deficits diffuse severe CAD w NSTEMI - reduced EF. for transfer to eval for CT surgery vs high risk stenting DM1 - insulin management. current A1c 9.7% (other most recent have been 6.7- 7.6) - so suspect something acutely different with self management or diet dyslipidemia - 167/91/54/TG 109 - continue high intensity statin. consider adding zetia otherwise as above, pending transfer to [facility] as pt's facility of choice Resident Activity Tracking Resident Involvement: Resident Care Provided Care Provided: Adult Hospital Medicine
[2021-07-09 21:12] LABS: Partial Thromboplastin Ratio 0.9
[2021-07-09] MEDS: ASPIRIN 81 MG ECTAB PO SCH (21:38)
[2021-07-09] MEDS: predniSONE 5 MG TAB PO SCH (21:38)
[2021-07-09] MEDS: SERTRALINE HCL 100 MG TABLET PO SCH (21:38)
[2021-07-09] MEDS: ATORVASTATIN 40 MG TAB PO SCH (21:38)
[2021-07-09] MEDS: PANTOprazole 40 MG TAB PO SCH (21:38)
[2021-07-09] MEDS: PREGABALIN 150 MG CAP PO SCH (21:38)
[2021-07-09] MEDS: allopurinoL 300 MG TAB PO SCH (21:38)
[2021-07-09] MEDS: SIROLIMUS 0.5 MG TABLET PO SCH (21:39)
[2021-07-10 04:14] LABS: Hematocrit (blood only) 32.1 % (42-52); Mean Corpuscular Hemoglobin 26.9 pg (25-34); Mean Corpuscular Hgb Conc 31.2 g/dL (32-36); Mean Corpuscular Volume 86.3 fL (80-100); Mean Platelet Volume 11.6 fL (7.4-10.4); Nucleated RBC # (auto) 0.02 K/uL (0-0); Nucleated RBC % (auto) 0.2 %; Platelet Count 168 K/uL (130-400); RDW Coefficient of Variation 17.8 % (11.5-14.5); RDW Standard Deviation 56.6 fL (36.4-46.3); Red Blood Count 3.72 M/uL (4.7-6.1); White Blood Count 10.63 K/uL (4.8-10.8)
[2021-07-10 04:46] LABS: Partial Thromboplastin Ratio 2.3
[2021-07-10 04:49] LABS: Partial Thromboplastin Time 63.3 Seconds (21.0-31.0)
[2021-07-10 04:53] LABS: BUN Creatinine Ratio 8.2 (10-20); Calcium 8.4 mg/dl (8.5-10.1); Creatinine Clr Calc Pharmacy 14.4 ml/min; Est GFR (African American) 11.3 ml/min; Est GFR (Non-African American) 9.7 ml/min; Magnesium 2.3 mg/dl (1.7-2.4); Potassium 5.1 mmol/L (3.5-5.1)
--- NOTE | 2021-07-10 07:09 | Discharge Summary ---
Date of Service July 10, 2021 Admission HPI Per Admitting Provider Constantine Dalton is a 45yo male with history of Type I DM well managed with insulin pump, ESRD s/p renal transplant now on HD w //, CAD s/p anterolateral STEMI with MAR placement to diagonal 03/25/2015 presenting with chest pain. Patient was getting ready for bed when he developed acute left sided chest pain around 21:30. Pain located in the left chest with radiation down the left arm and into the back of the neck - heaviness to left arm. Severe, 8/10 with associated nausea and lightheadedness. He took a Nexium at home thinking it may be heart burn with no relief. Patient was administered morphine in the ER with slight improvement. Chest pain resolved with ASA and Nitro. Presently chest pain free. No additional complaints. Denies fever, chills, cough, SOB, abdominal pain, nausea, vomiting, diarrhea or constipation. Patient is active and independent. Does not experience exertional chest pain or shortness of breath. ER Course: ASA 324mg, Heparin bolus and gtt, Nitro 0.4mg x 1, Zofran 4mg IV, Morphine 4mg IV Admission Exam Per Admitting Provider General: patient resting comfortably, NAD, non-toxic in appearance, AA&O x 4 Skin: warm, dry, intact, no rashes or lesions HEENT: NC/AT, PERRL, EOMI, anicteric sclera, conjunctiva without injection, external ear normal to inspection and nontender, nares patent, moist mucus membranes, dentition intact, no oropharyngeal lesions, neck supple, trachea midline, no LAD, no thyromegaly, no JVD Heart: +S1/S2, regular, 3/6 blowing murmur over mitral valve, no rubs, gallops Lungs: equal air entry bilaterally, no rales/rhonchi/wheezes Abd: +BS, soft, NT/ND, no masses/organomegaly/ascites, peritoneal dialysis catheter in place with no evidence of infection/drainage/peritonitis Ext: warm, 2+ pulses in UE/LE bilaterally, no clubbing/cyanosis or edema, left wrist fistula with palpable thrill, 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 NAD. Cooperative. HEENT: Atraumatic, normocephalic. EOMI Pulm: Faint insp crackles at bases. Symmetrical chest rise. No respiratory distress. Cardiac: RRR, -mrg. No LE edema. Abdominal: Nontender, nondistended, soft. Msk: L Knee stump. Integ: L radial dialysis access fistula bandaged, c/d/i. Discharge Data Allergies Allergy/AdvReac Type Severity Reaction Status Date / Time pork derived (porcine) Allergy Intermediate Hives with Verified 07/08/21 04:30 Pork Insulin Consultations 07/08/21 02:36 ED Decision to Admit Stat 07/08/21 04:16 Consult Cardiology Routine Consult Nephrology Routine Procedures Performed Operation Date: 07/09/21 09:30 Actual Procedures p Cath, Coronaries ONLY (no LV) - Harrison Jimenez MD s Cineradiography w/Routine Exam - Harrison Jimenez MD Ordered Studies Cardiac Enzymes 07/08/21 07/09/21 Range/Units 04:19 06:43 Troponin I High Sens 70417.1 H* D (0-20) pg/ml B-Natriuretic Peptide 1182 H (0-100) pg/ml Coagulation 07/08/21 07/09/21 07/10/21 Range/Units 04:19 20:48 03:57 APTT 25.0 63.3 H* (21.0-31.0) Seconds B-Natriuretic Peptide 1182 H (0-100) pg/ml Lipids 07/09/21 Range/Units 06:43 Triglycerides 109 (0-150) mg/dl Cholesterol 167 (0-200) mg/dl HDL Cholesterol 54 mg/dl Cholesterol/HDL Ratio 3.1 (0-5) CBC 07/10/21 Range/Units 03:57 WBC 10.63 (4.8-10.8) K/uL RBC 3.72 L (4.7-6.1) M/uL Hgb 10.0 L (14.0-18.0) g/dL Hct 32.1 L (42-52) % Plt Count 168 (130-400) K/uL Comprehensive Metabolic Panel 07/09/21 07/10/21 Range/Units 06:43 03:57 Sodium 130 L 133 L (136-145) mmol/L Potassium 5.2 H D 5.1 (3.5-5.1) mmol/L Chloride 93 L 96 L (98-107) mmol/L Carbon Dioxide 24 24 (21-32) mmol/L BUN 70 H 52 H (6-23) mg/dl Creatinine 7.52 H* D 6.32 H* D (0.6-1.4) mg/dl Glucose 125 H 172 H (70-99(Fasting)) mg/dl Calcium 8.0 L 8.4 L (8.5-10.1) mg/dl Intake and Output 07/09/21 07/10/21 07/10/21 22:59 06:59 14:59 Intake Total 362.4 / 362.4 Balance 362.4 / 362.4 Intake: IV 362.4 / 362.4 Heparin Sodium/Dextrose 25,000 362.4 / 362.4 units In 500 ml @ 1,200 UNITS/ HR 24 mls/hr IV .[id number] [facility] Rx #:[id number] Other: Hemodialysis Ultrafiltration 1,000 Amount Other Intake Source Patient is NPO # Unmeasured Voids 1 Weight 79.6 kg Weight Measurement Method Built in [facility] Chest X-Ray 07/08/21 00:47 XR chest 1V portable CLINICAL HISTORY: Atypical chest pain. COMPARISON STUDY: Chest radiograph March 07, 2021. FINDINGS: Enlargement of the cardiac silhouette is similar to prior exam. There is no pneumothorax or pleural effusion. Interstitial thickening is noted. Slightly increased when compared to prior exam. Old left fourth rib fracture is incidentally noted IMPRESSION: Cardiomegaly with mild interstitial pulmonary edema. ACT 112: Negative or not required by law. Electronically signed by: Carl Terry M.D. 07/08/2021 7:47 AM Hemodialysis Access Duplex US 07/08/21 06:21 US hemodialysis access CLINICAL HISTORY: assess flow, fistula COMPARISON STUDY: Left upper extremity doppler ultrasound May 29, 2009. TECHNIQUE: Grayscale, color duplex Doppler sonography of the left upper extremity AV fistula was performed. FINDINGS: A portion of the old left upper arm AV fistula is occluded. This fistula was shown on ultrasound of May 29, 2009. A new left wrist AV fistula is noted. This fistula is patent. No thrombus is a identified within the fistula. No aneurysm is identified. Peak systolic velocities within the fistula range up to 309 cm/s. This velocity is within normal limits. However, decreased velocities are noted within portions of the fistula, at peak systolic velocity of 20 cm/s. IMPRESSION: 1. Patent left upper extremity AV fistula. However, velocities within portions of the fistula are diminished, as described above. This could be due to underlying stenosis. 2. Old, occluded left upper arm AV fistula. ACT 112: Negative or not required by law. Electronically signed by: Carl Terry M.D. 07/08/2021 11:06 AM Diabetes Follow up Diabetes Follow-up Needed for HgbA1c >9% Hospital Course (1) Non-ST elevation (NSTEMI) myocardial infarction: 45yo male with history of CAD s/p anterolateral LA in 2016 with stent placement, ESRD on HD, DM-I presenting with chest pain, similar to prior LA.Initial EKG with subtle ST changes, no STEMI. Presently chest pain free. [facility]. Awaiting bed placement. Will transfer via ACLS and continue heparin gtt. NSTEMI: -Patient with history of CAD s/p LA with MAR placement in 2016. Presenting with chest pain as described alleviated by SL nitro and morphine -Echo demonstrating EF of 35%, with akinesis of the apex and mid anterior wall, hypokinesis of the midanteroseptum, mid-inferior and mid-anterolateral [place] [address] -Continue ASA, Plavix, Metoprolol, and Atorvastatin -Continue heparin gtt -Cardiology consultation: cardiac catheterization on 07/09/21: Impression: 1. Severe multivessel CAD including mid LAD, proximal large OM1, and occluded D1 and mid RCA. 2. Left to right collaterals. 3. Codominant system. - Recommend evaluation by CT surgery to determine if he is a suitable CABG candidate. Type 1 diabetes: - A1c 7.6 03/08/21. 9.7 on 07/08/21. Continue home insulin pump and continuous blood glucose monitoring. ESRD (end stage renal disease): -Patient with ESRD. s/p failed renal transplant. -HD q M/W/F. Last session today 07/09/21. -Nephrology consulted -Continue sevelamer 800mg po TID -Continue Calcitriol -Continue Lasix 80mg po daily -Continue Prednisone 5mg po daily. Low threshold for stress steroids if patient becomes hypotensive -Continue Sirolimus Hyperparathyroidism: -Continue Calcitriol Hyperlipidemia: -Last lipid panel in March 2021 with total cholesterol 224, JBD=203, HDL=59, IA=670 -Continue Atorvastatin 80mg daily GERD (gastroesophageal reflux disease): -Continue Protonix Diet: NPO since 07/10/21 midnight Anticoag: On heparin gtt Code: FULL CODE (2) ESRD (end stage renal disease): (3) Kidney transplant failure: (4) Type 1 diabetes: (5) CAD (coronary artery disease): Total Time Total Time Spent Total Time Spent (In Minutes): <30 Discharge Plan Discharge Items Patient Disposition: Transfer Acute Care Hospital Reason For Visit: CHEST PAIN Discharge Diagnosis: NSTEMI Activity: Per Instructions section Non-emergency contact: Primary Care Provider Call non-emergency contact if: you have any medication questions, your symptoms worsen and you have a fever Follow-up/Referrals: dEi Amador DO [Primary Care Provider] - Diet: Nothing by Mouth Addtl Attending Provider Instructions: 45yo male with history of CAD s/p anterolateral LA in 2016 with stent placement, ESRD on HD, DM-I presenting with chest pain, similar to prior LA.Initial EKG with subtle ST changes, no STEMI. Presently chest pain free. [facility] for evaluation to determine if suitable CABG candidate. Awaiting bed placement. Will transfer via ACLS and continue heparin gtt. NSTEMI: -Patient with history of CAD s/p LA with MAR placement in 2016. Presenting with chest pain as described alleviated by SL nitro and morphine -Echo demonstrating EF of 35%, with akinesis of the apex and mid anterior wall, hypokinesis of the midanteroseptum, mid-inferior and mid-anterolateral [place] [address] -Continue ASA, Plavix, Metoprolol, and Atorvastatin -Continue heparin gtt -Cardiology consultation: cardiac catheterization on 07/09/21: Impression: 1. S evere multivessel CAD including mid LAD, proximal large OM1, and occluded D1 and mid RCA. 2. Left to right collaterals. 3. Codominant system. - Recommend evaluation by CT surgery to determine if he is a suitable CABG candidate. Type 1 diabetes: - A1c 7.6 03/08/21. 9.7 on 07/08/21. Continue home insulin pump and continuous blood glucose monitoring. ESRD (end stage renal disease): -Patient with ESRD. s/p failed renal transplant. -HD q M/W/. Last session today 07/09/21. -Nephrology consulted -Continue sevelamer 800mg po TID -Continue Calcitriol -Continue Lasix 80mg po daily -Continue Prednisone 5mg po daily. Low threshold for stress steroids if patient becomes hypotensive -Continue Sirolimus Hyperparathyroidism: -Continue Calcitriol Hyperlipidemia: -Last lipid panel in March 2021 with total cholesterol 224, VVA=456, HDL=59, YO=346 -Continue Atorvastatin 80mg daily GERD (gastroesophageal reflux disease): -Continue Protonix Diet: NPO since 07/10/21 midnight Anticoag: On heparin gtt Code: FULL CODE Addtl General Surgeon Provider Instructions: ACTIVITY RECOMMENDATIONS: Excess manipulation of the wrist should be avoided for the next 24-48 hours. * No lifting over 2 pounds (approximately a 1/2 gallon of milk) with the utilized arm for 24 hours. * No strenuous activity such as bowling or tennis for 3 days. * Keep the site of the procedure covered with a bandage for 24 hours. *You may shower the day after the procedure. Do not take a tub bath or submerge the puncture site in water for the next 3 days. *Do not operate any motorized equipment for 3 days. SPECIAL CARE INSTRUCTIONS: The site may be slightly bruised and sore following your procedure. Should any of the following occur, contact the Dr. who performed your procedure. 1. Redness/inflammation, swelling, chills, or fever, or colored drainage at procedure site within 3-7 days after your procedure. 2. Coldness, discoloration, ongoing numbness, severe pain, or swelling. Expect mild tingling of hand and tenderness at the puncture site for up to three days. If this persists beyond three days, or other symptoms develop, notify the Dr. who performed your procedure. BLEEDING: If the procedure site on your wrist begins to bleed, do not panic 1. Place 1 or 2 fingers firmly just slightly above the insertion site to stop the bleeding. You may be able to feel your pulse as you hold pressure. 2. Lift your finger after 5 minutes to see if the bleeding has stopped. 3. Once the bleeding has stopped, gently wipe the wrist area clean with a bandage. * If the bleeding from your wrist does not stop after 10 minutes, or if there is a large amount of bleeding or spurting, call 911 (do not drive yourself to the hospital). SKIN IRRITATION: * You may experience some redness and/or swelling in the area where radiation was administered. If any skin irritation occurs, please contact your family physician. FOLLOW UP VISIT: Keep any scheduled doctor appointments. Pending Studies at Discharge: No Stand-Alone Forms: My [facility] Skilled Items Patient informed of condition?: Yes DNR: No Discharge Level of Care: Other Communicable Disease: No Discharge Prognosis: Stable Lines: None Urinary Catheter: No Medications and DC Order Prescriptions: Continued allopurinol 300 mg tablet 300 mg PO HS Qty: 90 RF: 3 prednisone 5 mg tablet 5 mg PO HS Qty: 90 RF: 3 aspirin 81 mg tablet,delayed release (DR/EC) 81 mg PO HS Qty: 30 RF: 5 ergocalciferol (vitamin D2) 1,250 mcg (50,000 unit) capsule 1,250 mcg PO .weekly Qty: 24 RF: 0 sertraline 100 mg tablet 100 mg PO HS Qty: 30 RF: 6 clopidogrel [Plavix] 75 mg tablet 75 mg PO HS Qty: 30 RF: 5 atorvastatin 80 mg tablet 80 mg PO HS Qty: 90 RF: 3 furosemide [Lasix] 40 mg tablet 80 mg PO DAILY Qty: 60 RF: 5 Hold Instructions: hold now pregabalin [Lyrica] 75 mg capsule 150 mg PO HS Qty: 90 RF: 5 ropinirole 0.5 mg tablet 0.5 mg PO DAILY Qty: 90 RF: 3 (DME) Dexcom G6 Sensor Device See Dose Instructions .ROUTE .MEDSUPPLY Qty: 9 RF: 3 (DME) Dexcom G6 Transmitter Device See Dose Instructions .ROUTE .MEDSUPPLY Qty: 1 RF: 3 sirolimus 2 mg tablet 4 mg PO HS Qty: 180 RF: 3 potassium chloride 10 mEq tablet extended release 20 meq PO DAILY Qty: 180 RF: 3 sevelamer carbonate [Renvela] 800 mg tablet 800 mg PO TID Qty: 270 RF: 2 Glucagon Emergency Kit (human) 1 mg recon soln 1 mg IM DIRECTED PRN (Reason: LOW BLOOD SUGAR) RF: 0 pantoprazole 40 mg tablet,delayed release (DR/EC) 40 mg PO HS RF: 0 insulin aspart U-100 [Novolog U-100 Insulin aspart] 100 unit/mL solution 60 unit subcut DAILY 90 Days Qty: 60 RF: 0 (DME) insulin syringe-needle U-100 [BD Insulin Syringe] 0.5 mL 29 gauge x 1/2" syringe See Rx Instructions .Route Qty: 200 RF: 0 calcitriol 0.5 mcg capsule 0.5 mcg PO Q OTHER DAY RF: 0 clindamycin phosphate 1 % solution 1 applic topical BID PRN (Reason: Rash) RF: 0 metoprolol succinate 25 mg tablet extended release 24 hr 75 mg PO DAILY RF: 0 diclofenac sodium 1 % gel 2 g topical QID PRN (Reason: Pain) RF: 0 Discharge Orders: Discharge Order (Routine); Ordered 07/09/21 Ordered By: Russ Brizuela Admission Data Admit Date/Time: 07/08/21 03:01 Attending Provider: Teofilo Linares Admit Provider: Ronel Lima Primary Care Provider: Edi Amador Other Providers: Ronel Lima ; Harrison Jimenez ; Edi Amador ; Araceli Powell Other Interventions: Discharge Summary Assessment (RN) Last Done: 07/10/21 07:18 Resident Activity Tracking Resident Involvement: Resident Care Provided Care Provided: Adult Hospital Medicine
--- NOTE | 2021-07-10 14:37 | Hospitalist Progress Note ---
Date of Service July 10, 2021 Assessment & Plan (1) Non-ST elevation (NSTEMI) myocardial infarction: Plan: 45yo male with history of CAD s/p anterolateral AR in 2016 with stent placement, ESRD on HD, DM-I presenting with chest pain, similar to prior AR.Initial EKG wi th subtle ST changes, no STEMI. Presently chest pain free. Transfer to [facility] Dr. [facility]. Will transfer via ACLS and continue heparin gtt. NSTEMI: -Patient with history of CAD s/p AR with MAR placement in 2016. Presenting with chest pain as described alleviated by SL nitro and morphine -Echo demonstrating EF of 35%, with akinesis of the apex and mid anterior wall, hypokinesis of the midanteroseptum, mid-inferior and mid-anterolateral [place] [address] -Continue ASA, Plavix, Metoprolol, and Atorvastatin -Continue heparin gtt -Cardiology consultation: cardiac catheterization on 07/09/21: Impression: 1. Severe multivessel CAD including mid LAD, proximal large OM1, and occluded D1 and mid RCA. 2. Left to right collaterals. 3. Codominant system. - Recommend evaluation by CT surgery to determine if he is a suitable CABG candidate. Type 1 diabetes: - A1c 7.6 03/08/21. 9.7 on 07/08/21. Continue home insulin pump and continuous blood glucose monitoring. ESRD (end stage renal disease): -Patient with ESRD. s/p failed renal transplant. -HD q M/W/F. Last session today 07/09/21. -Nephrology consulted -Continue sevelamer 800mg po TID -Continue Calcitriol -Continue Lasix 80mg po daily -Continue Prednisone 5mg po daily. Low threshold for stress steroids if patient becomes hypotensive -Continue Sirolimus Hyperparathyroidism: -Continue Calcitriol Hyperlipidemia: -Last lipid panel in March 2021 with total cholesterol 224, ACW=023, HDL=59, UY=778 -Continue Atorvastatin 80mg daily GERD (gastroesophageal reflux disease): -Continue Protonix Diet: NPO Anticoag: On heparin gtt Code: FULL CODE (2) ESRD (end stage renal disease): (3) Kidney transplant failure: (4) Type 1 diabetes: (5) CAD (coronary artery disease): Admission and Anticipated Discharge Date Admission Date: July 08, 2021 Supervising Physician Co-Signing Physician Notes I personally examined the patient and verified all landin points of history and exam, discussed case, and agree with decision making with Dr Brizuela seen post cath - d/w cardiology - for transfer for possible CABG. getting HD started when i see him. pain free. understands situation vitals noted nad heent nc at mmm breathing unlabored no accessory muscles good effort skin no rashes no pallor or icterus neuro no focal deficits diffuse severe CAD w NSTEMI - reduced EF. for transfer to [facility] for CT surgery vs high risk stenting DM1 - insulin management. current A1c 9.7% (other most recent have been 6.7- 7.6) - so suspect something acutely different with self management or diet dyslipidemia - 167/91/54/TG 109 - continue high intensity statin. consider adding zetia otherwise as above, pending transfer to [facility] as pt's facility of choice Subjective No subjective complaints. No chest pain or SOB. Review of Systems Review of Systems: All systems reviewed & are unremarkable except as noted in HPI & below Physical Exam Physical Exam: General: A&O. NAD. Cooperative. HEENT: Atraumatic, normocephalic. EOMI Pulm: Faint insp crackles at bases. Symmetrical chest rise. No respiratory distress. Cardiac: RRR, -mrg. No LE edema. Abdominal: Nontender, nondistended, soft. Msk: L Knee stump. Integ: L radial dialysis access fistula bandaged, c/d/i. Results & Data Results & Data ([facility]) Vital Signs (Past 12 Hours) Vital Signs Temp Pulse Pulse Pulse Resp BP BP 07/10/21 07:24 88 07/10/21 07:18 36.6 C 92 H 89 17 100/60 180/62 H 07/10/21 07:07 36.6 C 89 17 100/60 07/10/21 03:27 37.1 C 92 H 18 87/56 L Pulse Ox 07/10/21 07:24 07/10/21 07:18 91 07/10/21 07:07 91 07/10/21 03:27 93
--- NOTE | 2021-07-10 16:37 | Billing Data ---
Date of Service July 09, 2021 Coding Level of Care Code 63452 Subseq Hosp Care Lvl 3
== END 2021-07-10 08:08 | disposition short-term general hospital (02) | DRG 280 ==
LOC: ED 00:39 → 2S 03:01 → SUATTDRO 03:01 → 2S 03:28
PROC: CLB.CCO (2021-07-09 09:30)

== ENCOUNTER 2022-02-27 14:12 | Inpatient (IN) ==
[2022-02-27 15:54] LABS: Basophils % (auto) 1.2 %; Eosinophils # (auto) 0.26 K/uL (0-0.50); Eosinophils % (auto) 3.2 %; Hematocrit (blood only) 36.9 % (40.1-51.0); Hemoglobin 11.6 g/dl (14.0-18.0); Immature Granulocytes # (auto) 0.03 K/uL (0.00-0.02); Immature Granulocytes % (auto) 0.4 %; Lymphocytes # (auto) 1.85 K/uL (1.2-3.4); Lymphocytes % (auto) 22.6 %; Mean Corpuscular Hemoglobin 28.8 pg (25.0-34.0); Mean Corpuscular Hgb Conc 31.4 g/dL (32.0-36.0); Mean Corpuscular Volume 91.6 fL (80.0-100.0); Mean Platelet Volume 11.5 fL (9.4-12.4); Monocytes # (auto) 0.55 K/uL (0.24-0.82); Monocytes % (auto) 6.7 %; Neutrophils % (auto) 65.9 %; Platelet Count 143 K/uL (130-400); RDW Coefficient of Variation 19.6 % (11.5-14.5); RDW Standard Deviation 65.2 fL (36.4-46.3); Red Blood Count 4.03 M/uL (4.63-6.08); White Blood Count 8.19 K/ul (4.8-10.8)
[2022-02-27] MEDS ORDERED: ACETAMINOPHEN 500 MG TAB PO STA (16:12)
[2022-02-27 16:13] LABS: INR 1.8 (0.9-1.1); Partial Thromboplastin Ratio 1.2; Partial Thromboplastin Time 34.1 Seconds (21.0-31.0); Prothrombin Time 18.8 Seconds (9.0-12.0)
[2022-02-27 16:17] LABS: Alanine Aminotransferase 10 U/L (7-52); Albumin Globulin Ratio 0.9 (0.9-2); Albumin Level 3.2 gm/dl (3.4-5.0); Alkaline Phosphatase 256 U/L (34-104); Anion Gap 6 (3-11); Aspartate Aminotransferase 28 U/L (13-39); BUN Creatinine Ratio 4.7 (10-20); Bilirubin,Total 1.8 mg/dl (0.2-1.0); Blood Urea Nitrogen 15 mg/dl (6-23); Calcium 7.9 mg/dl (8.5-10.1); Carbon Dioxide 34 mmol/L (21-32); Chloride 100 mmol/L (98-107); Est GFR (African American) 25.5 ml/min; Globulin 3.5 gm/dl (2.5-4.0); Glucose 78 mg/dl (70-99(Fasting)); Magnesium 2.1 mg/dl (1.7-2.4); Potassium 4.1 mmol/L (3.5-5.1); Sodium 140 mmol/L (136-145); Total Protein 6.7 gm/dl (6.0-8.3)
[2022-02-27 16:22] LABS: Troponin I High Sensitivity 27.7 pg/ml (0-20)
[2022-02-27] MEDS ORDERED: SODIUM CHLORIDE 0.9% 1000ML 1,000 ML IV SCH (16:30)
--- NOTE | 2022-02-27 16:33 | XRay Report ---
XR chest 1V portable CLINICAL HISTORY: SOB TECHNIQUE: Single frontal radiograph of the chest was obtained. Comparison: Comparison is made to chest radiograph 02/21/2022 FINDINGS: Right venous catheter is seen. Cardiomegaly is noted. Airspace opacity is seen in the left lower lung . Small to moderate left pleural effusion is seen. IMPRESSION: Airspace opacity left lower lung may represent atelectasis, pneumonia, and/or aspiration. It is proba burke similar to prior exam. Left pleural effusion is stable to minimally decreased from prior exam. ACT 112: Negative or not required by law. Electronically signed by: Javier Khan M.D. 02/27/2022 4:31 PM
--- NOTE | 2022-02-27 16:44 | Emergency Department Note ---
Impression & Plan Acute dyspnea, ESRD (end stage renal disease), Kidney transplant failure, Warfarin anticoagulation, Fever ED Provider Note CHIEF COMPLAINT: Shortness of breath, dialysis HISTORY OF PRESENT ILLNESS: This 46-year-old male patient presents to the emergency department with complaints of shortness of breath during his dialysis treatment today. The patient is dialysis dependent after a failed renal transplant. He suffers from significant coronary artery disease and is status post CABG. He does have a known left pleural effusion that is recurrent. He did have a drain last month and is scheduled to have it drained again in 2 days. Patient received 2 hours of his dialysis today when he developed the shortness of breath. He does not normally wear oxygen but was placed on oxygen for tra nsport. He was not aware of a fever that was noticed on arrival. Patient denies any significant cough or pain. He notes a left [id number] amputation. Patient is chronically anticoagulated. REVIEW OF SYSTEMS: A review of systems was performed with positives and pertinent negatives listed in the history of present illness. 10 systems were reviewed and are otherwise negative. ALLERGIES: see below MEDICATIONS: see below PMH: see below SOCIAL HISTORY: see below DDx: Reactive airway disease, pneumonia, pneumothorax, COPD, CHF, infections, cardiac ischemia, pulmonary embolism, musculoskeletal, gastrointestinal, as well as other pathologies. PHYSICAL EXAM: Vital signs reviewed. Fever noted. General: Chronically ill-appearing 46-year-old male, no significant distress. HEENT: No scleral icterus, PERRLA, neck supple. Atraumatic. Cardiovascular: Regular rate and rhythm, no extra sounds. R subclavian dialysis line Pulmonary: Diminished breath sounds on the left, crackles at the right base. Abdomen: Soft, nontender, nondistended, positive bowel sounds. Musculoskeletal: Atraumatic, no peripheral edema. Neurologic: Patient awake alert and oriented x 3, speech is clear Skin: Warm, dry, no rash EMERGENCY DEPARTMENT COURSE/MDM: This patient was evaluated and appeared to be in no significant distress. Patient is chronically ill-appearing, but stable vital signs. He is placed on the monitor technician and noted to be febrile. Blood cultures and lactic acid were performed. Patient's WBC is normal. He was hydrated with normal saline solution gently, given IV cefepime and vancomycin. COVID, RSV and influenza swabs are negative. Chest x-ray reveals evidence of pleural effusion with potential for underlying infiltrate. After some discussion with the patient and his , CT imaging of the chest was performed and reveals atelectasis versus pneumonia. Was informed of the findings. Given his external dialysis line, fever and immunocompromise status, I do feel the patient should stay for IV antibiotics until blood cultures have returned. He has agreed to this plan and the hospitalist was consulted for further management. MONITORING: An order for cardiac monitoring was placed and the patient is noted to be in a normal sinus rhythm at 87 beats per minute. RADIOLOGY: See below EKG: Normal sinus rhythm at 95 bpm. Possible left atrial enlargement. Low voltage QRS. QTC is 432. No PVC, no PAC. Normal ST segments. DISPOSITION:Admit Past Med/Surg History Medical History Acute respiratory failure with hypoxia AMI anterolateral wall 2016 Anemia Anxiety CAD (coronary artery disease) Chewing tobacco nicotine dependence CHF (congestive heart failure) Deep vein thrombosis Depression Diabetic peripheral neuropathy End-stage renal failure with renal transplant Fistula Gout Grief reaction Hypoalbuminemia Inhibited sexual excitement Mitral regurgitation Non-ST elevation (NSTEMI) myocardial infarction Peripheral neuropathy Recurrent left pleural effusion Sensory problems with limbs Serum phosphate elevated Sleep apnea CPAP STEMI (ST elevation myocardial infarction) Type 1 diabetes Warfarin anticoagulation Surgical History H/O eye surgery LEFT/RT LASER SURGERY History of below knee amputation LEFT REVISION (5 TOTAL) [place] of cardiac [place] [facility] - 2 STENTS - FOLLOWS W/ DR. JURADO History of heart artery stent 2016 (2 STENTS PLACED) AT [facility] History of right hip replacement 03/17/2019 [facility] History of total replacement of right hip Kidney transplant recipient 2002 Status post left hip replacement Family History Grandfather Family history of diabetes mellitus Other No family history of adverse response to anesthesia Social History Smoking Status: Never smoker Second Hand Exposure: No; Hx Alcohol Use: No Hx Substance Use: No Preferred Language: Haitian Communication Ability: Effective Loom Mechanic Required: No Beliefs That Will Affect Care: None marital status: Current Living Situation: Spouse current occupational status: employed 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 - [employer] How many Children do You have: 2 How many Children do You have Comment: 1 is Feels Safe at Home: Yes Assistive Devices: Cane and Prosthesis Allergies Allergies Allergy/AdvReac Type Severity Reaction Status Date / Time pork derived (porcine) Allergy Intermediate Hives with Verified 02/27/22 16:38 Pork Insulin sacubitril [From Entresto] AdvReac Severe Hypotension Verified 02/27/22 21:47 valsartan [From Entresto] AdvReac Severe Hypotension Verified 02/27/22 21:47 Home Meds Home Medications Medication Instructions Recorded Confirmed ezetimibe 10 mg tablet (Zetia) 10 mg PO DAILY 12/14/21 02/27/22 ferrous sulfate 325 mg (65 mg 325 mg PO BID 12/14/21 02/27/22 iron) tablet metoprolol succinate 25 mg 12.5 mg PO BID 12/14/21 02/27/22 tablet,extended release 24 hr sevelamer carbonate 800 mg tablet 1,600 mg PO TID 12/14/21 02/27/22 (Renvela) tamsulosin 0.4 mg capsule 0.4 mg PO DAILY 12/14/21 02/27/22 acetaminophen 325 mg tablet 650 mg PO Q6H PRN PAIN/FEVER 02/27/22 02/27/22 (Tylenol) atorvastatin 80 mg tablet 40 mg PO HS 02/27/22 02/27/22 calcitriol 0.25 mcg capsule 0.25 mcg PO 3XWK 02/27/22 02/27/22 calcitriol 0.5 mcg capsule 0.5 mcg PO Q OTHER DAY 02/27/22 02/27/22 clindamycin phosphate 1 % lotion 1 applic topical BID PRN ACNE AREAS 02/27/22 02/27/22 colchicine 0.6 mg tablet 0.3 mg PO DAILY 02/27/22 02/27/22 darbepoetin sarah in polysorbat 200 200 mcg subcut DIRECTED 02/27/22 02/27/22 mcg/mL in polysorbate injection diclofenac sodium 1 % topical gel 2 g topical QID PRN Pain 02/27/22 02/27/22 ergocalciferol (vitamin D2) 1,250 1,250 mcg PO WK 02/27/22 02/27/22 mcg (50,000 unit) capsule (Vitamin D2) gentamicin 0.1 % topical cream 1 applic topical DIRECTED 02/27/22 02/27/22 insulin aspart U-100 100 unit/mL 0 unit continuous subcutaneous 02/27/22 02/27/22 subcutaneous solution (Novolog infusion CONTINOUS U-100 Insulin aspart) lidocaine-prilocaine 2.5 %-2.5 % 1 applic topical DIRECTED PRN 02/27/22 02/27/22 topical cream TO DIALYSIS ACCESS LINE losartan 25 mg tablet 25 mg PO DAILY 02/27/22 02/27/22 midodrine 5 mg tablet 5 mg PO AC 02/27/22 02/27/22 pantoprazole 40 mg tablet,delayed 40 mg PO HS 02/27/22 02/27/22 release potassium chloride 10 mEq 20 meq PO DAILY 02/27/22 02/27/22 capsule,extended release pregabalin 75 mg capsule 150 mg PO HS 02/27/22 02/27/22 sennosides 8.6 mg tablet (senna) 17.2 mg PO HS 02/27/22 02/27/22 sertraline 100 mg tablet 100 mg PO HS 02/27/22 02/27/22 warfarin 2 mg tablet 4 mg PO QPM 02/27/22 02/27/22 allopurinol 100 mg tablet 100 mg PO .3X WEEKLY 02/28/22 02/28/22 Previous Rx's Medication Instructions Recorded prednisone 5 mg tablet 5 mg PO HS #90 tabs 03/30/20 clopidogrel 75 mg tablet (Plavix) 75 mg PO HS #30 tabs 03/20/21 furosemide 40 mg tablet (Lasix) 80 mg PO DAILY #60 tabs 04/19/21 ropinirole 0.5 mg tablet 0.5 mg PO DAILY #90 tabs 04/26/21 Dexcom G6 Sensor (blood-glucose #9 ea 05/15/21 sensor) Dexcom G6 Transmitter #1 05/15/21 (blood-glucose transmitter) insulin syringe-needle U-100 0.5 #200 05/29/21 mL 29 gauge x 1/2" (BD Insulin Syringe) Results & Data (ED) Vital Signs Vital Signs - 24 hr 02/27/22 14:49 02/27/22 18:08 02/27/22 20:00 Temperature 38.5 C H Temperature Source Temporal Artery Scan Pulse Rate 97 H Pulse Rate [Apical] 96 H 87 Pulse Rhythm [Apical] Regular Pulse Strength [Apical] Normal Respiratory Rate 18 14 18 Respiratory Effort / Characteristics Non-Labored Non-Labored Spontaneous Respiratory Depth Normal Normal Respiratory Pattern Regular Blood Pressure 113/74 Blood Pressure [Left Arm] 112/40 L 116/56 L Blood Pressure Mean 87 Blood Pressure Mean [Left Arm] 64 76 Pulse Oximetry 96 97 98 Oxygen Delivery Method Room Air Nasal Cannula Nasal Cannula Oxygen Flow Rate 2 2 Sepsis Recent Fever Within 48 Hours No Sepsis New/Unexplained Change in Mental Status N/A Sepsis Action Taken by Nursing No Action Required Home Medications Current Medication List: was personally reviewed by me Laboratory Data Attestation: I reviewed the patient's lab results. Result diagrams: 02/27/22 15:44 02/27/22 15:44 Lab Results 02/27/22 02/27/22 02/27/22 Range/Units 15:44 15:44 15:44 WBC 8.19 (4.8-10.8) K/ul RBC 4.03 L (4.63-6.08) M/uL Hgb 11.6 L (14.0-18.0) g/dl Hct 36.9 L (40.1-51.0) % MCV 91.6 (80.0-100.0) fL MCH 28.8 (25.0-34.0) pg MCHC 31.4 L (32.0-36.0) g/dL RDW Std Deviation 65.2 H (36.4-46.3) fL RDW Coeff of Michelle 19.6 H (11.5-14.5) % Plt Count 143 (130-400) K/uL MPV 11.5 (9.4-12.4) fL Immature Gran % (Auto) 0.4 % Neut % (Auto) 65.9 % Lymph % (Auto) 22.6 % [place] % (Auto) 6.7 % Eos % (Auto) 3.2 % Baso % (Auto) 1.2 % Neut # (Auto) 5.40 (1.4-6.5) K/uL Lymph # (Auto) 1.85 (1.2-3.4) K/uL [place] # (Auto) 0.55 (0.24-0.82) K/uL Eos # (Auto) 0.26 (0-0.50) K/uL Baso # (Auto) 0.10 (0-0.2) K/uL Immature Gran # (Auto) 0.03 H (0.00-0.02) K/uL PT 18.8 H (9.0-12.0) Seconds INR 1.8 H (0.9-1.1) APTT 34.1 H (21.0-31.0) Seconds PTT Ratio 1.2 Sodium 140 (136-145) mmol/L Potassium 4.1 (3.5-5.1) mmol/L Chloride 100 (98-107) mmol/L Carbon Dioxide 34 H (21-32) mmol/L Anion Gap 6 (3-11) BUN 15 (6-23) mg/dl Creatinine 3.20 H (0.6-1.4) mg/dl Est Cr Clr Drug Dosing Not Reportable Est GFR ( Amer) 25.5 ml/min Est GFR (Non-Af Amer) 22.0 ml/min BUN/Creatinine Ratio 4.7 L (10-20) Glucose 78 (70-99(Fasting)) mg/dl Lactate (0.4-2.0) mmol/L Calcium 7.9 L (8.5-10.1) mg/dl Magnesium 2.1 (1.7-2.4) mg/dl Total Bilirubin 1.8 H (0.2-1.0) mg/dl AST 28 (13-39) U/L ALT 10 (7-52) U/L Alkaline Phosphatase 256 H (34-104) U/L Troponin I High Sens 27.7 H (0-20) pg/ml Total Protein 6.7 (6.0-8.3) gm/dl Albumin 3.2 L (3.4-5.0) gm/dl Globulin 3.5 (2.5-4.0) gm/dl Albumin/Globulin Ratio 0.9 (0.9-2) SARS-CoV-2 (PCR) (Negative) Influenza Type A (PCR) (Neg) Influenza Type B (PCR) (Neg) RSV (RT-PCR) (Neg) 02/27/22 02/27/22 Range/Units 16:43 18:41 WBC (4.8-10.8) K/ul RBC (4.63-6.08) M/uL Hgb (14.0-18.0) g/dl Hct (40.1-51.0) % MCV (80.0-100.0) fL MCH (25.0-34.0) pg MCHC (32.0-36.0) g/dL RDW Std Deviation (36.4-46.3) fL RDW Coeff of Michelle (11.5-14.5) % Plt Count (130-400) K/uL MPV (9.4-12.4) fL Immature Gran % (Auto) % Neut % (Auto) % Lymph % (Auto) % [place] % (Auto) % Eos % (Auto) % Baso % (Auto) % Neut # (Auto) (1.4-6.5) K/uL Lymph # (Auto) (1.2-3.4) K/uL [place] # (Auto) (0.24-0.82) K/uL Eos # (Auto) (0-0.50) K/uL Baso # (Auto) (0-0.2) K/uL Immature Gran # (Auto) (0.00-0.02) K/uL PT (9.0-12.0) Seconds INR (0.9-1.1) APTT (21.0-31.0) Seconds PTT Ratio Sodium (136-145) mmol/L Potassium (3.5-5.1) mmol/L Chloride (98-107) mmol/L Carbon Dioxide (21-32) mmol/L Anion Gap (3-11) BUN (6-23) mg/dl Creatinine (0.6-1.4) mg/dl Est Cr Clr Drug Dosing Est GFR ( Amer) ml/min Est GFR (Non-Af Amer) ml/min BUN/Creatinine Ratio (10-20) Glucose (70-99(Fasting)) mg/dl Lactate 1.6 (0.4-2.0) mmol/L Calcium (8.5-10.1) mg/dl Magnesium (1.7-2.4) mg/dl Total Bilirubin (0.2-1.0) mg/dl AST (13-39) U/L ALT (7-52) U/L Alkaline Phosphatase (34-104) U/L Troponin I High Sens (0-20) pg/ml Total Protein (6.0-8.3) gm/dl Albumin (3.4-5.0) gm/dl Globulin (2.5-4.0) gm/dl Albumin/Globulin Ratio (0.9-2) SARS-CoV-2 (PCR) NEGATIVE (Negative) Influenza Type A (PCR) Negative (Neg) Influenza Type B (PCR) Negative (Neg) RSV (RT-PCR) Negative (Neg) Administered Medications Ezetimibe (Ezetimibe 10 Mg Tablet) 10 mg PO DAILY REBECCA Stop: 03/30/22 08:59 Last Admin: 02/28/22 08:24 Dose: 10 mg Documented By: HEBERT Insulin Aspart (Insulin Aspart Per Unit) 0 units SC ACHS REBECCA Stop: 03/30/22 07:29 Last Admin: 02/28/22 10:19 Dose: Not Given Documented By: HEBERT Losartan Potassium (Losartan Potassium 25 Mg Tab) 25 mg PO DAILY REBECCA Stop: 03/30/22 08:59 Last Admin: 02/28/22 08:23 Dose: 25 mg Documented By: HEBERT Metoprolol Succinate (Metoprolol Succ 25mg Ext Rel Tab) 12.5 mg PO BID REBECCA Stop: 03/29/22 23:57 Last Admin: 02/28/22 08:24 Dose: 12.5 mg Documented By: Admin: 02/28/22 01:04 Dose: 12.5 mg Documented By: BRANDIE Midodrine (Midodrine Hcl 2.5 Mg Tab) 5 mg PO AC REBECCA Stop: 03/30/22 07:29 Last Admin: 02/28/22 08:23 Dose: 5 mg Documented By: HEBERT Ropinirole HCl (Ropinirole Hcl 0.25 Mg Tablet) 0.5 mg PO DAILY REBECCA Stop: 03/30/22 08:59 Last Admin: 02/28/22 08:24 Dose: 0.5 mg Documented By: HEBERT Tamsulosin HCl (Tamsulosin Hcl 0.4 Mg Cap) 0.4 mg PO DAILY REBECCA Stop: 03/30/22 08:59 Last Admin: 02/28/22 08:24 Dose: 0.4 mg Documented By: HEBERT Discontinued Medications Acetaminophen (Acetaminophen 500 Mg Tab) 1,000 mg PO NOW STA Stop: 02/27/22 16:13 Last Admin: 02/27/22 16:26 Dose: 1,000 mg Documented By: EDUIN Sodium Chloride (Nss 1000ml) 1,000 mls @ 80 mls/hr IV .[id number] REBECCA Stop: 03/29/22 16:29 Last Infusion: 02/28/22 01:17 Dose: 0 mls/hr Documented By: Admin: 02/27/22 16:26 Dose: 80 mls/hr Documented By: EDUIN Vancomycin HCl 1,500 mg/ (Sodium Chloride) 530 mls @ 200 mls/hr IV NOW ONE Stop: 02/27/22 19:54 Last Admin: 02/27/22 18:01 Dose: 200 mls/hr Documented By: CRYS Cefepime HCl (Maxipime) 2,000 mg in 20 mls @ 5 mls/min IV NOW STA; Protocol Stop: 02/27/22 17:19 Last Admin: 02/27/22 17:59 Dose: 5 mls/min Documented By: CRYS Cefepime HCl 1,000 mg/ Syringe 10 mls @ 5 mls/min IV Q12H REBECCA; Protocol Stop: 03/07/22 05:59 Last Admin: 02/28/22 05:56 Dose: 5 mls/min Documented By: MEE Ioversol (Optiray 350 100ml) 87 ml IV ONCE ONE Stop: 02/27/22 18:21 Last Admin: 02/27/22 18:20 Dose: 87 ml Documented By: [facility] Imaging Data Radiologist's Impression: Chest X-Ray 02/27/22 14:54 XR chest 1V portable CLINICAL HISTORY: SOB TECHNIQUE: Single frontal radiograph of the chest was obtained. Comparison: Comparison is made to chest radiograph 02/21/2022 FINDINGS: Right venous catheter is seen. Cardiomegaly is noted. Airspace opacity is seen in the left lower lung. Small to moderate left pleural effusion is seen. IMPRESSION: Airspace opacity left lower lung may represent atelectasis, pneumonia, and/or aspiration. It is probably similar to prior exam. Left pleural effusion is stable to minimally decreased from prior exam. ACT 112: Negative or not required by law. Electronically signed by: Javier Khan M.D. 02/27/2022 4:31 PM Blood Pressure Blood Pressure Findings: Normal blood pressure Blood Pressure Disposition: further management by hospitalist Discharge Plan Visit Data Chief Complaint: Shortness of Breath/Dyspnea Stated Complaint: SOB ED Provider: Neda Kirkland Discharge Problem: Acute dyspnea, ESRD (end stage renal disease), Kidney transplant failure, Warfarin anticoagulation, Fever Discharge Instructions Interventions: ED Discharge Assessment Last Done: 02/27/22 23:58
[2022-02-27] MEDS ORDERED: VANCOMYCIN HCL 1,500 MG in SODIUM CHLORIDE 0.9% 500 ML IV ONE (17:16)
[2022-02-27] MEDS ORDERED: VANCOMYCIN CONSULT ACTIVE PRN (17:16)
[2022-02-27] MEDS ORDERED: CEFEPIME 2,000 MG/20 ML VIAL IV STA (17:16)
[2022-02-27] MEDS ORDERED: OPTIRAY 350 100ml IV ONE (18:20)
--- NOTE | 2022-02-27 18:32 | Electrocardiogram Report ---
Test Reason : Blood Pressure : / mmHG Vent. Rate : 095 BPM Atrial Rate : 095 BPM P-R Int : 172 ms QRS Dur : 082 ms QT Int : 344 ms P-R-T Axes : 048 014 060 degrees QTc Int : 432 ms Normal sinus rhythm Possible Left atrial enlargement Low voltage QRS Possible Anterolateral infarct (cited on or before 02-DEC-2019) Abnormal ECG When compared with ECG of 08-JUL-2021 07:29, QRS voltage has decreased ST no longer depressed in Lateral leads Confirmed by Delio Otoole ([id number]) on 02/27/2022 6:32:06 PM Referred By: Confirmed By:Angel Otoole
--- NOTE | 2022-02-27 18:38 | CT Scan Report ---
CHEST CT WITH CONTRAST CT DOSE: 247.14 mGy.cm HISTORY: Acute shortness of breath with left pleural effusion L pl effusion, fever, SOB TECHNIQUE: Multiaxial CT images of the chest were performed following the IV administration of 87 cc of Optiray. A dose lowering technique was utilized adhering to the principles of ALARA. COMPARISON: Chest radiographs of same day and also 12/20/2021, chest CT 03/29/2019 FINDINGS: No thyroid nodule identified. There are a few borderline enlarged mediastinal lymph nodes m easuring up to 10 mm which have increased in size from the prior study. Cardiomegaly with trace peric ardial effusion. Extensive coronary artery calcifications. Mural fibrofatty changes of the left ventr icular apex suggestive of prior myocardial infarction. Unremarkable thoracic aorta and unopacified pu lmonary artery. Right IJ dual-lumen hemodialysis catheter is noted with distal tip terminating within the super aspect of the right atrium. Small right and moderate to large left pleural effusions have increased in size from the 2019 exam. T he left pleural effusion with only mildly increased in size from the 12/20/2021 exam. Mild intralobul ar septal thickening. Left lung volume loss with collapse of the left lower lobe. Lingular atelectasi s. Central airways appear patent. Small volume of upper abdominal ascites with anasarca. No acute pro cess of the imaged upper abdomen. No acute fracture. Gynecomastia. IMPRESSION: 1. Small right and moderate to large left pleural effusions. The left pleural effusion has only mildl y increased in size compared to the 12/20/2021 exam. 2. Left lung volume loss with left lower lobe collapse. 3. Mild mediastinal lymphadenopathy is likely reactive. 4. Cardiomegaly with mild intralobular septal thickening which may represent a degree of interstitial pulmonary edema. 5. Extensive coronary artery calcifications. ACT 112: Negative or not required by law. Electronically signed by: Marquise Babb M.D. 02/27/2022 6:35 PM
[2022-02-27 19:36] LABS: Influenza A virus by PCR Negative (Neg); Influenza B virus by PCR Negative (Neg); RSV by PCR Negative (Neg); SARS CoV2 RNA(COVID-19) Ceph NEGATIVE (Negative)
[2022-02-27] MEDS ORDERED: GLUCOSE 10 TAB/TUBE PO PRN (21:26)
[2022-02-27] MEDS ORDERED: GLUCAGON FOR INJ 1 MG VIAL SQ PRN (21:26)
[2022-02-27] MEDS ORDERED: GLUCOSE 40% GEL 15 GM TUBE PO PRN (21:26)
[2022-02-27] MEDS ORDERED: CARBOHYDRATES FOR HYPOGLYCEMIA PO PRN (21:26)
[2022-02-27] MEDS ORDERED: DEXTROSE 50% 50 ML SYRINGE IV PRN (21:26)
[2022-02-27] MEDS ORDERED: ACETAMINOPHEN 325 MG TAB PO PRN (23:58)
[2022-02-28] MEDS: METOPROLOL SUCC 25MG EXT REL TAB PO SCH ×3 (01:04→22:08)
[2022-02-28] MEDS ORDERED: CEFEPIME 1,000 MG in SYRINGE 0 ML IV SCH (06:00)
--- NOTE | 2022-02-28 07:17 | History & Physical Report ---
Date of Service February 28, 2022 Assessment & Plan (1) Recurrent left pleural effusion: Plan: Patient presents to ED with complaints of worsening shortness of breath towards the end of his hemodialysis session. Patient evaluated in ED and found to be slightly hypoxic with oxygen requirements. CT of the chest shows evidence of moderate left-sided pleural effusion. Discussed with radiology and they feel based on Hounsfield calculations it appears to be free-flowing and likely not empyema. Will obtain pulmonary and IR input for further management Continue pulse oximetry and supplemental oxygen (2) Fever: Plan: Patient noted to have temperature of 38.5 upon ED evaluation Patient also has a HD catheter in place for his hemodialysis needs Need to rule out catheter related infection patient was given empiric treatment with vancomycin and cefepime in the ED Vancomycin management by pharmacy protocol White count not elevated in the emergency department (3) Uncontrolled type 1 diabetes mellitus with diabetic neuropathy, with long- term current use of insulin: Plan: Patient will be placed on sliding scale coverage with short acting insulin based on fingerstick monitoring Hold oral hypoglycemics while inpatient Check hemoglobin A1c level (4) Warfarin anticoagulation: Plan: Patient is anticoagulated with Coumadin at home. Discussed with pulmonary in ED and will hold Coumadin in anticipation of thoracentesis that may be performed today Check daily INR (5) CAD (coronary artery disease): Plan: Patient has recent CABG with BA to LAD and robotic assisted BA harvest with TAVR surgery performed in [facility] Patient denies any acute chest pain at this time Continue antiplatelet with aspirin and Plavix (6) Hypertension: Plan: Continue home dose of metoprolol and losartan for blood pressure control Monitor blood pressure trend titrate meds as tolerated (7) Hyperlipidemia: Plan: Continue statin therapy with atorvastatin 40 mg daily Admission and Anticipated Discharge Date Admission Date: February 27, 2022 History of Present Illness Chief Complaint: Patient presents to ED with complaints of worsening shortness of breath Primary Care Provider: NO PCP This is a 46-year-old male with past medical history significant for history of end-stage renal disease on hemodialysis, status post CABG surgery few weeks ago, diabetes mellitus requiring insulin, coronary artery disease who presents to the emergency department complains of worsening shortness of breath. Patient reports that he was having his dialysis session and about 2 hours into the treatment he started experiencing worsening shortness of breath and hence p resents to ED for further evaluation. Patient follows with Dr. zavala of [facility] cardiology and also had a recent open heart surgery done in [facility] in [place]. Patient was reported to have moderate mitral regurgitation along with moderate to severe patient subsequently had a robotic CABG followed by PCI to circumflex followed by TAVR given his comorbid conditions. Patient had a left thoracentesis and had 1.3 L removed during recent hospitalizations and is also being followed by thoracic medicine and has plans to have interventional radiology to perform a left-sided thoracentesis on Friday. Patient however developed worsening shortness of breath and presents to ED for further evaluation. Patient was placed on oxygen supplementation in the ED with improvement in his oxygenation with 3 L oxygen via nasal cannula. In the ED patient was found to have a temperature spike and was started on broad-spectrum IV antibiotics as he also has HD catheter in place. Allergies Allergy/AdvReac Type Severity Reaction Status Date / Time pork derived (porcine) Allergy Intermediate Hives with Verified 02/27/22 16:38 Pork Insulin sacubitril [From Entresto] AdvReac Severe Hypotension Verified 02/27/22 21:47 valsartan [From Entresto] AdvReac Severe Hypotension Verified 02/27/22 21:47 Home Medications Medication Instructions Recorded Confirmed Type prednisone 5 mg tablet 5 mg PO HS #90 tabs 03/30/20 02/27/22 Rx clopidogrel 75 mg tablet (Plavix) 75 mg PO HS #30 tabs 03/20/21 02/27/22 Rx furosemide 40 mg tablet (Lasix) 80 mg PO DAILY #60 tabs 04/19/21 02/27/22 Rx ropinirole 0.5 mg tablet 0.5 mg PO DAILY #90 tabs 04/26/21 02/27/22 Rx Dexcom G6 Sensor (blood-glucose #9 ea 05/15/21 02/21/22 Rx sensor) Dexcom G6 Transmitter #1 ea 05/15/21 02/21/22 Rx (blood-glucose transmitter) insulin syringe-needle U-100 0.5 #200 ea 05/29/21 02/21/22 Rx mL 29 gauge x 1/2" (BD Insulin Syringe) ezetimibe 10 mg tablet (Zetia) 10 mg PO DAILY 12/14/21 02/27/22 History ferrous sulfate 325 mg (65 mg 325 mg PO BID 12/14/21 02/27/22 History iron) tablet metoprolol succinate 25 mg 12.5 mg PO BID 12/14/21 02/27/22 History tablet,extended release 24 hr sevelamer carbonate 800 mg tablet 1,600 mg PO TID 12/14/21 02/27/22 History (Renvela) tamsulosin 0.4 mg capsule 0.4 mg PO DAILY 12/14/21 02/27/22 History acetaminophen 325 mg tablet 650 mg PO Q6H PRN PAIN/FEVER 02/27/22 02/27/22 History (Tylenol) atorvastatin 80 mg tablet 40 mg PO HS 02/27/22 02/27/22 History calcitriol 0.25 mcg capsule 0.25 mcg PO 3XWK 02/27/22 02/27/22 History calcitriol 0.5 mcg capsule 0.5 mcg PO Q OTHER DAY 02/27/22 02/27/22 History clindamycin phosphate 1 % lotion 1 applic topical BID PRN ACNE AREAS 02/27/22 02/27/22 History colchicine 0.6 mg tablet 0.3 mg PO DAILY 02/27/22 02/27/22 History darbepoetin sarah in polysorbat 200 200 mcg subcut DIRECTED 02/27/22 02/27/22 History mcg/mL in polysorbate injection diclofenac sodium 1 % topical gel 2 g topical QID PRN Pain 02/27/22 02/27/22 Hi story ergocalciferol (vitamin D2) 1,250 1,250 mcg PO WK 02/27/22 02/27/22 History mcg (50,000 unit) capsule (Vitamin D2) gentamicin 0.1 % topical cream 1 applic topical DIRECTED 02/27/22 02/27/22 History insulin aspart U-100 100 unit/mL 0 unit continuous subcutaneous 02/27/22 02/27/22 History subcutaneous solution (Novolog infusion CONTINOUS U-100 Insulin aspart) lidocaine-prilocaine 2.5 %-2.5 % 1 applic topical DIRECTED PRN 02/27/22 02/27/22 History topical cream TO DIALYSIS ACCESS LINE losartan 25 mg tablet 25 mg PO DAILY 02/27/22 02/27/22 History midodrine 5 mg tablet 5 mg PO AC 02/27/22 02/27/22 History pantoprazole 40 mg tablet,delayed 40 mg PO HS 02/27/22 02/27/22 History release potassium chloride 10 mEq 20 meq PO DAILY 02/27/22 02/27/22 History capsule,extended release pregabalin 75 mg capsule 150 mg PO HS 02/27/22 02/27/22 History sennosides 8.6 mg tablet (senna) 17.2 mg PO HS 02/27/22 02/27/22 History sertraline 100 mg tablet 100 mg PO HS 02/27/22 02/27/22 History warfarin 2 mg tablet 4 mg PO QPM 02/27/22 02/27/22 History allopurinol 100 mg tablet 100 mg PO .3X WEEKLY 02/28/22 02/28/22 History Past Med/Surg History Medical History (Updated 02/28/22 @ 07:11 by Mikhail Meyer MD) Acute respiratory failure with hypoxia AMI anterolateral wall 2016 Anemia Anxiety CAD (coronary artery disease) Chewing tobacco nicotine dependence CHF (congestive heart failure) Deep vein thrombosis Depression Diabetic peripheral neuropathy End-stage renal failure with renal transplant Fistula Gout Grief reaction Hypoalbuminemia Inhibited sexual excitement Mitral regurgitation Non-ST elevation (NSTEMI) myocardial infarction Peripheral neuropathy Recurrent left pleural effusion Sensory problems with limbs Serum phosphate elevated Sleep apnea CPAP STEMI (ST elevation myocardial infarction) Type 1 diabetes Warfarin anticoagulation Surgical History (Updated 02/21/22 @ 16:45 by Sabas Zavala Jr, MD, [facility]) H/O eye surgery LEFT/RT LASER SURGERY History of below knee amputation LEFT REVISION (5 TOTAL) History of cardiac cath 2016 - [place] - [facility] - 2 STENTS - FOLLOWS W/ DR. ZAVALA History of heart artery stent 2016 (2 STENTS PLACED) AT [facility] History of right hip replacement 03/17/2019 [facility] History of total replacement of right hip Kidney transplant recipient 2002 Status post left hip replacement Family History Grandfather Family history of diabetes mellitus Other No family history of adverse response to anesthesia Social History Smoking Status: Never smoker Second Hand Exposure: No; Hx Alcohol Use: No Hx Substance Use: No Preferred Language: Salvadorean Communication Ability: Effective Pediatric Physician Assistant Required: No Beliefs That Will Affect Care: None marital status: Current Living Situation: Spouse current occupational status: employed 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 - [employer] How many Children do You have: 2 How many Children do You have Comment: 1 is Other Information That Helps Us Care for You: No Feels Safe at Home: Yes Safety Concerns: Feels Safe At This Time Assistive Devices: Cane and Prosthesis Review of Systems Review of Systems: Patient denies chest pain Presents with shortness of breath No chills reported patient reported to have a temperature of 38 in ED No headache no visual disturbance No nausea vomiting No seizures reported Physical Exam Constitutional: WD/WN, vitals as above Neck: trachea midline, no thyromegaly Respiratory: Bilateral air entry slightly decreased at bases Left-sided air entry decreased no wheezing noted Cardiovascular: S1-S2 heard no rubs Gastrointestinal (Abdomen): normal bowel sounds, soft, nontender, no hepatosplenomegaly Musculoskeletal: Patient is status post BKA Neurologic: No focal deficits Results & Data Results & Data ([facility]) Vital Signs (Past 12 Hours) Vital Signs Pulse Pulse Resp BP BP Pulse Ox Pulse Ox 02/28/22 01:06 97 02/28/22 01:05 75 20 107/73 95 02/27/22 23:03 80 21 103/63 99 02/27/22 21:59 96 02/27/22 20:00 87 18 116/56 L 98 O2 Del Method O2 Flow Rate 02/28/22 01:06 02/28/22 01:05 Room Air 02/27/22 23:03 Room Air 02/27/22 21:59 Nasal Cannula 2 02/27/22 20:00 Nasal Cannula 2 Laboratory Results Short CBC 02/27/22 Range/Units 15:44 WBC 8.19 (4.8-10.8) K/ul Hgb 11.6 L (14.0-18.0) g/dl Hct 36.9 L (40.1-51.0) % Plt Count 143 (130-400) K/uL BMP 02/27/22 15:44 Sodium 140 Potassium 4.1 Chloride 100 Carbon Dioxide 34 H BUN 15 Creatinine 3.20 H Glucose 78 Calcium 7.9 L Liver Function 02/27/22 Range/Units 15:44 Total Bilirubin 1.8 H (0.2-1.0) mg/dl AST 28 (13-39) U/L ALT 10 (7-52) U/L Alkaline Phosphatase 256 H (34-104) U/L Albumin 3.2 L (3.4-5.0) gm/dl Diagnostic Findings Chest X-Ray 02/27/22 14:54 XR chest 1V portable CLINICAL HISTORY: SOB TECHNIQUE: Single frontal radiograph of the chest was obtained. Comparison: Comparison is made to chest radiograph 02/21/2022 FINDINGS: Right venous catheter is seen. Cardiomegaly is noted. Airspace opacity is seen in the left lower lung. Small to moderate left pleural effusion is seen. IMPRESSION: Airspace opacity left lower lung may represent atelectasis, pneumonia, and/or aspiration. It is probably similar to prior exam. Left pleural effusion is stable to minimally decreased from prior exam. ACT 112: Negative or not required by law. Electronically signed by: Javier Khan M.D. 02/27/2022 4:[address] 02/27/22 17:[address] WITH CONTRAST CT DOSE: 247.14 mGy.cm HISTORY: Acute shortness of breath with left pleural effusion L pl effusion, fever, SOB TECHNIQUE: Multiaxial CT images of the chest were performed following the IV administration of 87 cc of Optiray. A dose lowering technique was utilized adhering to the principles of ALARA. COMPARISON: Chest radiographs of same day and also 12/20/2021, chest CT 03/29/2019 FINDINGS: No thyroid nodule identified. There are a few borderline enlarged mediastinal lymph nodes measuring up to 10 mm which have increased in size from the prior study. Cardiomegaly with trace pericardial effusion. Extensive coronary artery calcifications. Mural fibrofatty changes of the left ventricular apex suggestive of prior myocardial infarction. Unremarkable thoracic aorta and unopacified pulmonary artery. Right IJ dual-lumen hemodialysis catheter is noted with distal tip terminating within the super aspect of the right atrium. Small right and moderate to large left pleural effusions have increased in size from the 2019 exam. The left pleural effusion with only mildly increased in size from the 12/20/2021 exam. Mild intralobular septal thickening. Left lung volume loss with collapse of the left lower lobe. Lingular atelectasis. Central airways appear patent. Small volume of upper abdominal ascites with anasarca. No acute process of the imaged upper abdomen. No acute fracture. Gynecomastia. IMPRESSION: 1. Small right and moderate to large left pleural effusions. The left pleural effusion has only mildly increased in size compared to the 12/20/2021 exam. 2. Left lung volume loss with left lower lobe collapse. 3. Mild mediastinal lymphadenopathy is likely reactive. 4. Cardiomegaly with mild intralobular septal thickening which may represent a degree of interstitial pulmonary edema. 5. Extensive coronary artery calcifications. ACT 112: Negative or not required by law. Electronically signed by: Marquise Babb M.D. 02/27/2022 6:35 PM Code Status & VTE Plan VTE Prophylaxis Plan VTE Prophylaxis will be ordered: Yes PG Care Time/CCT Total # of Minutes Spent Total Time Spent with Patient: Total time spent is greater than 50% in coordination of care (as documented) at patient's floor/unit and/or counseling patient: Coding Level of Care Code 70501 Initial Inpt Care Lvl 2 Diagnoses Recurrent left pleural effusion J90 Fever R50.9 Fever type: unspecified Uncontrolled type 1 diabetes mellitus with diabetic neuropathy, with long-term current use of insulin E10.40; E10.65 Warfarin anticoagulation Z79.01 CAD (coronary artery disease) I25.10 Hypertension I10 Hyperlipidemia E78.5 (1) Fever Fever type: unspecified Qualified Code(s): R50.9 - Fever, unspecified
[2022-02-28] MEDS: MIDODRINE HCL 2.5 MG TAB PO SCH ×3 (08:23→16:40)
[2022-02-28] MEDS: LOSARTAN POTASSIUM 25 MG TAB PO SCH (08:23)
[2022-02-28] MEDS: rOPINIRole HCL 0.25 MG TABLET PO SCH (08:24)
[2022-02-28] MEDS: EZETIMIBE 10 MG TABLET PO SCH (08:24)
[2022-02-28] MEDS: TAMSULOSIN HCL 0.4 MG CAP PO SCH (08:24)
[2022-02-28] MEDS ORDERED: COLCHICINE 0.6 MG TAB PO SCH (09:00)
--- NOTE | 2022-02-28 09:09 | Nephrology Consultation ---
Date of Consultation February 28, 2022 Assessment & Plan (1) ESRD (end stage renal disease): * Last HD completed 02/27/22. Electrolyte balance is acceptable. No acute indication for HD today * Will plan next HD for am * Monitor PRP * Protect R upper arm AVF (2) Fever: * Await blood culture results * Received one dose IV Vancomycin * Continue empiric Cefepime (3) Recurrent left pleural effusion: * Await Pulmonology evaluation. Will likely require L thoracentesis History of Present Illness Reason for Consultation: ESKD on IHD Attending Physician: Eli Costa MD History of Present Illness Mr. Dalton is a 46 year old white male who is seen at the request of the hospitalist service to provide in patient dialysis and assist in patient's medical care. Medical records in the EMR were reviewed today and are summarized as follows: Mr. 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 In 2000 Mr. Dalton progressed to ESKD and was started on IHD. In 2001 he received a LRRT from his mother. Post transplant Cr stabilized at 1.6 - 1.8. He did suffer an acute rejection episode 2002 that was managed w/ steroid therapy. Unfortunately he then suffered a slow progressive decline in kidney function. In 01/21 Cr jodi to 4.0 and Mr. Dalton underwent L RC AVF creation and insertion of PD catheter in anticipation of needing dialysis. He started NCCPD 03/24. Unfortunately he did not tolerate NCCPD therapy due to recurrent hyperglycemia and quickly transitioned to IHD. He currently dialyzes MWF at [facility] (MWF 3.5hr F-180NR Qb 300 Qd A1.5 2K 2Ca Na 137 HCO3 35 EDW 68.5 kg). Mr. Dalton's L RC AVF has thrombosed. R BC AVF was created 08/15/21 but requires transposition. Mr. Dalton currently dialyzes via R IJ THC. His last dialysis was 02/27/22. He completed the treatment but c/o dyspnea and angina. He required O2 at 2 L/min NC throughout treatment. He was transferred to the [facility] following treatment for evaluation. In the EMD Mr. Dalton was found to have a low grade fever and L pleural effusion extending 2/3 up the thoracic cavity. Of note, Mr. Dalton last underwent thoracentesis 01/04/22 for 1500 cc volume removal Allergies Allergy/AdvReac Type Severity Reaction Status Date / Time pork derived (porcine) Allergy Intermediate Hives with Verified 02/27/22 16:38 Pork Insulin sacubitril [From Entresto] AdvReac Severe Hypotension Verified 02/27/22 21:47 valsartan [From Entresto] AdvReac Severe Hypotension Verified 02/27/22 21:47 Home Medications Medication Instructions Recorded Confirmed Type prednisone 5 mg tablet 5 mg PO HS #90 tabs 03/30/20 02/27/22 Rx clopidogrel 75 mg tablet (Plavix) 75 mg PO HS #30 tabs 03/20/21 02/27/22 Rx furosemide 40 mg tablet (Lasix) 80 mg PO DAILY #60 tabs 04/19/21 02/27/22 Rx ropinirole 0.5 mg tablet 0.5 mg PO DAILY #90 tabs 04/26/21 02/27/22 Rx Dexcom G6 Sensor (blood-glucose #9 ea 05/15/21 02/21/22 Rx sensor) Dexcom G6 Transmitter #1 ea 05/15/21 02/21/22 Rx (blood-glucose transmitter) insulin syringe-needle U-100 0.5 #200 ea 05/29/21 02/21/22 Rx mL 29 gauge x 1/2" (BD Insulin Syringe) ezetimibe 10 mg tablet (Zetia) 10 mg PO DAILY 12/14/21 02/27/22 History ferrous sulfate 325 mg (65 mg 325 mg PO BID 12/14/21 02/27/22 History iron) tablet metoprolol succinate 25 mg 12.5 mg PO BID 12/14/21 02/27/22 History tablet,extended release 24 hr sevelamer carbonate 800 mg tablet 1,600 mg PO TID 12/14/21 02/27/22 History (Renvela) tamsulosin 0.4 mg capsule 0.4 mg PO DAILY 12/14/21 02/27/22 History acetaminophen 325 mg tablet 650 mg PO Q6H PRN PAIN/FEVER 02/27/22 02/27/22 History (Tylenol) atorvastatin 80 mg tablet 40 mg PO HS 02/27/22 02/27/22 History calcitriol 0.25 mcg capsule 0.25 mcg PO 3XWK 02/27/22 02/27/22 History calcitriol 0.5 mcg capsule 0.5 mcg PO Q OTHER DAY 02/27/22 02/27/22 History clindamycin phosphate 1 % lotion 1 applic topical BID PRN ACNE AREAS 02/27/22 02/27/22 History colchicine 0.6 mg tablet 0.3 mg PO DAILY 02/27/22 02/27/22 History darbepoetin sarah in polysorbat 200 200 mcg subcut DIRECTED 02/27/22 02/27/22 History mcg/mL in polysorbate injection diclofenac sodium 1 % topical gel 2 g topical QID PRN Pain 02/27/22 02/27/22 History ergocalciferol (vitamin D2) 1,250 1,250 mcg PO WK 02/27/22 02/27/22 History mcg (50,000 unit) capsule (Vitamin D2) gentamicin 0.1 % topical cream 1 applic topical DIRECTED 02/27/22 02/27/22 History insulin aspart U-100 100 unit/mL 0 unit continuous subcutaneous 02/27/22 02/27/22 History subcutaneous solution (Novolog infusion CONTINOUS U-100 Insulin aspart) lidocaine-prilocaine 2.5 %-2.5 % 1 applic topical DIRECTED PRN 02/27/22 02/27/22 History topical cream TO DIALYSIS ACCESS LINE losartan 25 mg tablet 25 mg PO DAILY 02/27/22 02/27/22 History midodrine 5 mg tablet 5 mg PO AC 02/27/22 02/27/22 History pantoprazole 40 mg tablet,delayed 40 mg PO HS 02/27/22 02/27/22 History release potassium chloride 10 mEq 20 meq PO DAILY 02/27/22 02/27/22 History capsule,extended release pregabalin 75 mg capsule 150 mg PO HS 02/27/22 02/27/22 History sennosides 8.6 mg tablet (senna) 17.2 mg PO HS 02/27/22 02/27/22 History sertraline 100 mg tablet 100 mg PO HS 02/27/22 02/27/22 History warfarin 2 mg tablet 4 mg PO QPM 02/27/22 02/27/22 History allopurinol 100 mg tablet 100 mg PO .3X WEEKLY 02/28/22 02/28/22 History Patient History Medical History Acute respiratory failure with hypoxia AMI anterolateral wall 2016 Anemia Anxiety CAD (coronary artery disease) Chewing tobacco nicotine dependence CHF (congestive heart failure) Deep vein thrombosis Depression Diabetic peripheral neuropathy End-stage renal failure with renal transplant Fistula Gout Grief reaction Hypoalbuminemia Inhibited sexual excitement Mitral regurgitation Non-ST elevation (NSTEMI) myocardial infarction Peripheral neuropathy Recurrent left pleural effusion Sensory problems with limbs Serum phosphate elevated Sleep apnea CPAP STEMI (ST elevation myocardial infarction) Type 1 diabetes Warfarin anticoagulation Surgical History H/O eye surgery LEFT/RT LASER SURGERY History of below knee amputation LEFT REVISION (5 TOTAL) History of cardiac cath 2016 - [place] - [facility] - 2 STENTS - FOLLOWS W/ DR. JURADO History of heart artery stent 2016 (2 STENTS PLACED) AT [facility] History of right hip replacement 03/17/2019 [facility] History of total replacement of right hip Kidney transplant recipient 2002 Status post left hip replacement Family History Grandfather Family history of diabetes mellitus Other No family history of adverse response to anesthesia Social History Smoking Status: Never smoker Second Hand Exposure: No; Hx Alcohol Use: No Hx Substance Use: No Preferred Language: Khmer Communication Ability: Effective Coil Repair Technician Required: No Beliefs That Will Affect Care: None marital status: Current Living Situation: Spouse current occupational status: employed 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 - [employer] How many Children do You have: 2 How many Children do You have Comment: 1 is Feels Safe at Home: Yes Assistive Devices: Cane and Prosthesis Review of Systems Constitutional: + fever Eyes: no problem reported Ear, Nose, Mouth, Throat: no problem reported Respiratory: + cough and + dyspnea Cardiovascular: no chest pain Gastrointestinal: no abdominal pain, no vomiting and no diarrhea/loose stools Integumentary: no problem reported Neurologic: no confusion Physical Exam Constitutional: + ill appearing Eyes: PERRL, conjunctivae normal, anicteric sclerae ENMT: external ear and nose normal, oropharynx normal Neck: trachea midline, no thyromegaly R IJ THC with clean dry dressing in place Respiratory: Auscultation: + diminished lung sounds (2/3 up on L side) Cardiovascular: Rate/Rhythm: regular rate and regular rhythm Gastrointestinal (Abdomen): normal bowel sounds, soft, nontender, no hepatosplenomegaly Musculoskeletal: L BKA Neurologic: not confused Speech / Cognition: normal speech Results & Data ([facility]) Vital Signs (Past 12 Hours) Vital Signs Pulse Pulse Resp BP BP Pulse Ox Pulse Ox 02/28/22 01:06 97 02/28/22 01:05 75 20 107/73 95 02/27/22 23:03 80 21 103/63 99 02/27/22 21:59 96 O2 Del Method O2 Flow Rate 02/28/22 01:06 02/28/22 01:05 Room Air 02/27/22 23:03 Room Air 02/27/22 21:59 Nasal Cannula 2 Laboratory Results Laboratory Tests 02/27/22 02/27/22 15:44 15:44 WBC 8.19 Hgb 11.6 L Hct 36.9 L Plt Count 143 Sodium 140 Potassium 4.1 Chloride 100 Carbon Dioxide 34 H BUN 15 Creatinine 3.20 H Glucose 78 Calcium 7.9 L Magnesium 2.1 Total Bilirubin 1.8 H AST 28 ALT 10 Alkaline Phosphatase 256 H Albumin 3.2 L PG Care Time/CCT Total # of Minutes Spent Total Time Spent with Patient: Total time spent is greater than 50% in coordination of care (as documented) at patient's floor/unit and/or counseling patient: Coding Level of Care Code 32771 Inpt Consult Level 5 Diagnoses ESRD (end stage renal disease) N18.6 Fever R50.9 Fever type: unspecified Recurrent left pleural effusion J90 (1) Fever Fever type: unspecified Qualified Code(s): R50.9 - Fever, unspecified
[2022-02-28] MEDS: INSULIN ASPART PER UNIT SC SCH ×3 (10:19→17:16)
[2022-02-28 13:06] LABS: INR 1.8 (0.9-1.1); Prothrombin Time 18.7 Seconds (9.0-12.0)
--- NOTE | 2022-02-28 13:53 | Pulmonary Consultation ---
Date of Consultation February 28, 2022 Assessment & Plan (1) Pleural effusion, left: We will attempt thoracentesis tomorrow depending on scheduling. We will give 2.5 mg of p.o. vitamin K today. Check INR tomorrow. History of Present Illness Reason for Consultation: Recurrent pleural effusion Attending Physician: Eli Costa MD History of Present Illness 46-year-old male with a past medical history of type 1 diabetes mellitus, ischemic cardiomyopathy status post CABG in December 2021 with drug-eluting stent placement presenting to the hospital due to increasing shortness of breath. CT of his chest completed today revealed a large pleural effusion on the left. Patient's INR is currently 1.9. He is on warfarin due to a history of A. fib. He had a thoracentesis 01/04/2022 which revealed mixed inflammation and negative for malignancy. Pleural fluid appeared to be an exudate based on lights criteria from 01/04/2022. . The etiology of his recurrent effusion is unclear, but may be related to his recent CABG. No significant white count seen on labs today. Tolerating dinner today. No shortness of breath at rest. Saturating 96% on room air Patient is also a lifelong non-smoker. Allergies Allergy/AdvReac Type Severity Reaction Status Date / Time pork derived (porcine) Allergy Intermediate Hives with Verified 02/27/22 16:38 Pork Insulin sacubitril [From Entresto] AdvReac Severe Hypotension Verified 02/27/22 21:47 valsartan [From Entresto] AdvReac Severe Hypotension Verified 02/27/22 21:47 Home Medications Medication Instructions Recorded Confirmed Type prednisone 5 mg tablet 5 mg PO HS #90 tabs 03/30/20 02/27/22 Rx clopidogrel 75 mg tablet (Plavix) 75 mg PO HS #30 tabs 03/20/21 02/27/22 Rx furosemide 40 mg tablet (Lasix) 80 mg PO DAILY #60 tabs 04/19/21 02/27/22 Rx ropinirole 0.5 mg tablet 0.5 mg PO DAILY #90 tabs 04/26/21 02/27/22 Rx Dexcom G6 Sensor (blood-glucose #9 ea 05/15/21 02/21/22 Rx sensor) Dexcom G6 Transmitter #1 ea 05/15/21 02/21/22 Rx (blood-glucose transmitter) insulin syringe-needle U-100 0.5 #200 ea 05/29/21 02/21/22 Rx mL 29 gauge x 1/2" (BD Insulin Syringe) ezetimibe 10 mg tablet (Zetia) 10 mg PO DAILY 12/14/21 02/27/22 History ferrous sulfate 325 mg (65 mg 325 mg PO BID 12/14/21 02/27/22 History iron) tablet metoprolol succinate 25 mg 12.5 mg PO BID 12/14/21 02/27/22 History tablet,extended release 24 hr sevelamer carbonate 800 mg tablet 1,600 mg PO TID 12/14/21 02/27/22 History (Renvela) tamsulosin 0.4 mg capsule 0.4 mg PO DAILY 12/14/21 02/27/22 History acetaminophen 325 mg tablet 650 mg PO Q6H PRN PAIN/FEVER 02/27/22 02/27/22 History (Tylenol) atorvastatin 80 mg tablet 40 mg PO HS 02/27/22 02/27/22 History calcitriol 0.25 mcg capsule 0.25 mcg PO 3XWK 02/27/22 02/27/22 History calcitriol 0.5 mcg capsule 0.5 mcg PO Q OTHER DAY 02/27/22 02/27/22 History clindamycin phosphate 1 % lotion 1 applic topical BID PRN ACNE AREAS 02/27/22 02/27/22 History colchicine 0.6 mg tablet 0.3 mg PO DAILY 02/27/22 02/27/22 History darbepoetin sarah in polysorbat 200 200 mcg subcut DIRECTED 02/27/22 02/27/22 History mcg/mL in polysorbate injection diclofenac sodium 1 % topical gel 2 g topical QID PRN Pain 02/27/22 02/27/22 History ergocalciferol (vitamin D2) 1,250 1,250 mcg PO WK 02/27/22 02/27/22 History mcg (50,000 unit) capsule (Vitamin D2) gentamicin 0.1 % topical cream 1 applic topical DIRECTED 02/27/22 02/27/22 History insulin aspart U-100 100 unit/mL 0 unit continuous subcutaneous 02/27/22 02/27/22 History subcutaneous solution (Novolog infusion CONTINOUS U-100 Insulin aspart) lidocaine-prilocaine 2.5 %-2.5 % 1 applic topical DIRECTED PRN 02/27/22 02/27/22 History topical cream TO DIALYSIS ACCESS LINE losartan 25 mg tablet 25 mg PO DAILY 02/27/22 02/27/22 History midodrine 5 mg tablet 5 mg PO AC 02/27/22 02/27/22 History pantoprazole 40 mg tablet,delayed 40 mg PO HS 02/27/22 02/27/22 History release potassium chloride 10 mEq 20 meq PO DAILY 02/27/22 02/27/22 History capsule,extended release pregabalin 75 mg capsule 150 mg PO HS 02/27/22 02/27/22 History sennosides 8.6 mg tablet (senna) 17.2 mg PO HS 02/27/22 02/27/22 History sertraline 100 mg tablet 100 mg PO HS 02/27/22 02/27/22 History warfarin 2 mg tablet 4 mg PO QPM 02/27/22 02/27/22 History allopurinol 100 mg tablet 100 mg PO .3X WEEKLY 02/28/22 02/28/22 History Patient History Medical History (Updated 02/28/22 @ 16:10 by Alfonzo Joel MD) Acute respiratory failure with hypoxia AMI anterolateral wall 2015 Anemia Anxiety CAD (coronary artery disease) Chewing tobacco nicotine dependence CHF (congestive heart failure) Deep vein thrombosis Depression Diabetic peripheral neuropathy End-stage renal failure with renal transplant Fistula Gout Grief reaction Hypoalbuminemia Inhibited sexual excitement Mitral regurgitation Non-ST elevation (NSTEMI) myocardial infarction Peripheral neuropathy Pleural effusion, left Recurrent left pleural effusion Sensory problems with limbs Serum phosphate elevated Sleep apnea CPAP STEMI (ST elevation myocardial infarction) Type 1 diabetes Warfarin anticoagulation Surgical History H/O eye surgery LEFT/RT LASER SURGERY History of below knee amputation LEFT REVISION (5 TOTAL) History of cardiac cath 2016 - [place] - [facility] - 2 STENTS - FOLLOWS W/ DR. JURADO History of heart artery stent 2016 (2 STENTS PLACED) AT [facility] History of right hip replacement 03/17/2019 [facility] History of total replacement of right hip Kidney transplant recipient 2002 Status post left hip replacement Family History Grandfather Family history of diabetes mellitus Other No family history of adverse response to anesthesia Social History Smoking Status: Never smoker Second Hand Exposure: No; Hx Alcohol Use: No Hx Substance Use: No Preferred Language: Hungarian Communication Ability: Effective Central Office Repairer Required: No Beliefs That Will Affect Care: Rastafari marital status: Current Living Situation: Spouse current occupational status: employed 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 Patient is in no apparent distress. Patient is well-developed. Eyes: Pupils are equal round and reactive to light. Conjunctivae are normal. Anicteric sclera. Ears nose, mouth and throat: Mallampati class []. Normal posterior oropharynx. Uvula is midline. Neck: Trachea is midline. Visual inspection is normal. Respiratory: Clear to auscultation bilaterally. No use of accessory muscles. No significant clubbing noted. Cardiovascular: Regular rate and rhythm. No murmurs. No edema. Gastrointestinal: Normal bowel sounds, soft, nontender and nondistended. No hepatosplenomegaly noted. Musculoskeletal: No cyanosis. Patient is able to move all extremities. Strength is 5 out of 5 in the upper and lower extremities. Skin: No rashes, warm dry and intact. Neurologic: No obvious focal neurological deficits seen. Psychiatric: Alert and oriented x3 with a euthymic affect. PG Care Time/CCT Total # of Minutes Spent Total Time Spent with Patient: Total time spent is greater than 50% in coordination of care (as documented) at patient's floor/unit and/or counseling patient: Coding Level of Care Code 92027 Inpt Consult Level 3 Diagnoses Pleural effusion, left J90
--- NOTE | 2022-02-28 13:55 | Pharmacy Report ---
Pharmacy PK ABX Note - Date of Service February 28, 2022 - Assessment and Plan Assessment 46 year old M receiving Vancomycin and Cefepime for treatment of pulmonary infection vs catheter infection. * PMHx significant for ESRD on HD MWF, T2DM, CAD. * Fever of 38.5oC. No leukocytosis. Lactate normal. Procal 1.54. * Blood cx pending. * Next HD session scheduled for tomorrow. Plan Vancomycin * Loading dose: 1500 mg IV x 1 * Will dose per levels given HD. Random level this AM was 20.1 mcg/mL. Patient makes slight amount of urine per day. * Random level ordered Pre-HD for tomorrow (03/01/22) Pharmacy will continue to follow and will adjust dose/frequency as necessary. Thank you. Pharmacy has transitioned to AUC monitoring for vancomycin. AUC/ANA is the preferred PK/PD target and is associated with decreased risk of nephrotoxicity compared to traditional trough targets.
[2022-02-28] MEDS ORDERED: PHYTONADIONE 5 MG TAB PO STA (17:49)
--- NOTE | 2022-02-28 18:53 | Hospitalist Progress Note ---
Date of Service February 28, 2022 Assessment & Plan (1) Pleural effusion, left: Plan: Mr. Dalton is a 46 yo M with a PMHx of ESRD on HD, insulin dependent type II diabetes mellitus, and CAD s/p CABG several weeks ago who was admitted with progressive SOB. Recurrent left pleural effusion: - CT of the chest shows evidence of moderate left-sided pleural effusion.Discussed with radiology and they feel based on Hounsfield calculations it appears to be free-flowing and likely not empyema. - Pulmonary consulted, plan to do a thoracentesis tomorrow, 03/01/22 - now breathing on room air Fever: - Patient noted to have temperature of 38.5 upon ED evaluation - Patient also has a HD catheter in place for his hemodialysis needs; concern for possible catheter related infection - started on empiric treatment with vancomycin and cefepime - WBC normal, procal mildly elevated at 1.54. Lactate normal. Blood cultures pending. Uncontrolled type 1 diabetes mellitus with diabetic neuropathy, with long-term current use of insulin: - A1c 9.7 in July 2021; Repeat level ordered - Hold oral hypoglycemics while inpatient - patient has own insulin pump ESRD: - currently on HD - Nephrology followed, scheduled for HD 03/01/22 - Cr at 3.3. today, K at 4.1. Warfarin anticoagulation: - Patient is anticoagulated with Coumadin at home due to a history of paroxysmal Afib - Placed on hold due to upcoming thoracentesis - INR at 1.8 today, vit K given today - repeat INR in am CAD (coronary artery disease): - Patient has recent CABG with BA to LAD and robotic assisted BA harvest with a1 surgery performed in [place] 11/2021 - Continue antiplatelet with aspirin and Plavix, statin + zetia, losartan, metoprolol Hypertension: - Continue home dose of metoprolol and losartan for blood pressure control Hyperlipidemia: - Continue statin therapy with atorvastatin 40 mg daily + zetia Dvt ppx: On coumadin Diet: Heart Healthy, DMII Dispo: Med/tele Code: Full Admission and Anticipated Discharge Date Admission Date: February 27, 2022 Subjective Feeling well - wondering when he will have thoracentesis Review of Systems Gastrointestinal: + diarrhea/loose stools (started after abx were given ) Physical Exam Constitutional: WD/WN, vitals as above Eyes: + anicteric sclerae ENMT: external ear and nose normal, oropharynx normal Neck: trachea midline, no thyromegaly Respiratory: no cough Auscultation: + diminished lung sounds (left lower lobe ) Cardiovascular: Rate/Rhythm: regular rate and regular rhythm Heart Sounds: + murmur (systolic ejection ) Extremities: + vascular access device (R chest; there is no surrouning erythema or purulent drainage. ) Musculoskeletal: Head/Neck/Chest: normocephalic and head atraumatic Skin: no rashes, warm and dry Neurologic: moves all extremities Psychiatric: A+Ox3, euthymic affect Results & Data Results & Data ([facility]) Vital Signs (Past 12 Hours) Vital Signs Temp Pulse Resp BP Pulse Ox O2 Del Method 02/28/22 16:42 79 02/28/22 17:01 Room Air 02/28/22 15:00 36.7 C 75 23 96 02/28/22 14:48 105/77 02/28/22 14:00 78 19 105/68 99 02/28/22 12:30 69 14 111/71 97 02/28/22 10:00 77 21 104/70 98 02/28/22 07:00 78 1 L 95 PG Care Time/CCT Total # of Minutes Spent Total Time Spent with Patient: Total time spent is greater than 50% in coordination of care (as documented) at patient's floor/unit and/or counseling patient: Coding Level of Care Code 32242 Subseq Hosp Care Lvl 2 Diagnoses Pleural effusion, left J90
[2022-02-28] MEDS: ATORVASTATIN 40 MG TAB PO SCH (22:08)
[2022-02-28] MEDS: CLOPIDOGREL BISULFATE 75 MG TAB PO SCH (22:08)
[2022-02-28] MEDS: SERTRALINE HCL 100 MG TABLET PO SCH (22:10)
[2022-02-28] MEDS: predniSONE 5 MG TAB PO SCH (22:10)
[2022-02-28] MEDS: PANTOprazole 40 MG TAB PO SCH (22:10)
[2022-02-28] MEDS: SENNA 8.6 MG TAB PO SCH (22:10)
[2022-02-28] MEDS: PREGABALIN 150 MG CAP PO SCH (22:10)
[2022-02-28] MEDS ORDERED: CALCIUM CARBONATE 500 MG CHEWABLE TAB PO PRN (23:56)
[2022-03-01 06:14] LABS: Basophils # (auto) 0.09 K/uL (0-0.2); Basophils % (auto) 1.5 %; Eosinophils # (auto) 0.18 K/uL (0-0.50); Hematocrit (blood only) 34.4 % (40.1-51.0); Hemoglobin 11.1 g/dl (14.0-18.0); Immature Granulocytes # (auto) 0.02 K/uL (0.00-0.02); Immature Granulocytes % (auto) 0.3 %; Lymphocytes # (auto) 1.92 K/uL (1.2-3.4); Lymphocytes % (auto) 32.2 %; Mean Corpuscular Hemoglobin 28.9 pg (25.0-34.0); Mean Corpuscular Hgb Conc 32.3 g/dL (32.0-36.0); Mean Corpuscular Volume 89.6 fL (80.0-100.0); Mean Platelet Volume 11.8 fL (9.4-12.4); Monocytes # (auto) 0.47 K/uL (0.24-0.82); Monocytes % (auto) 7.9 %; Neutrophils # (auto) 3.28 K/uL (1.4-6.5); Neutrophils % (auto) 55.1 %; Nucleated RBC # (auto) 0.02 K/uL (0-0); Nucleated RBC % (auto) 0.3 %; Platelet Count 141 K/uL (130-400); RDW Coefficient of Variation 19.6 % (11.5-14.5); RDW Standard Deviation 63.9 fL (36.4-46.3); Red Blood Count 3.84 M/uL (4.63-6.08); White Blood Count 5.96 K/ul (4.8-10.8)
[2022-03-01 06:35] LABS: INR 1.8 (0.9-1.1); Prothrombin Time 18.2 Seconds (9.0-12.0)
[2022-03-01 06:48] LABS: BUN Creatinine Ratio 6.7 (10-20); Calcium 8.5 mg/dl (8.5-10.1); Creatinine Clr Calc Pharmacy 17.1 ml/min; Est GFR (African American) 16.9 ml/min; Est GFR (Non-African American) 14.5 ml/min; Potassium 4.9 mmol/L (3.5-5.1)
[2022-03-01] MEDS ORDERED: SODIUM CHLORIDE 0.9% 1000ML 1,000 ML IV PRN (07:00)
[2022-03-01 07:18] LABS: Estimated Average Glucose 117 mg/dl; Hemoglobin A1C 5.7 % (4.5-5.6)
[2022-03-01] MEDS ORDERED: PHYTONADIONE 5 MG TAB PO STA (07:39)
[2022-03-01] MEDS ORDERED: ONDANSETRON INJ 2 MG/ML 2 ML VIAL IV PRN (07:46)
[2022-03-01] MEDS: MIDODRINE HCL 2.5 MG TAB PO SCH ×3 (08:12→17:00)
[2022-03-01] MEDS: METOPROLOL SUCC 25MG EXT REL TAB PO SCH ×2 (08:12→21:52)
[2022-03-01] MEDS: EZETIMIBE 10 MG TABLET PO SCH (08:13)
[2022-03-01] MEDS: TAMSULOSIN HCL 0.4 MG CAP PO SCH (08:13)
[2022-03-01] MEDS: rOPINIRole HCL 0.25 MG TABLET PO SCH (08:13)
[2022-03-01] MEDS: LOSARTAN POTASSIUM 25 MG TAB PO SCH (08:13)
--- NOTE | 2022-03-01 08:40 | Nephrology Progress Note ---
Date of Service March 01, 2022 Assessment & Plan (1) ESRD (end stage renal disease): Plan: * Will provide HD today. Orders have been entered into EMR and HD RN notified * Monitor PRP * Protect R upper arm AVF (2) Fever: Plan: * Intermittent low grade fever. Preliminary blood cultures are negative for growth at 24 hours * Received one dose IV Vancomycin * Continue empiric Cefepime (3) Recurrent left pleural effusion: Plan: * Pulmonology recommendations reviewed - probable L thoracentesis today Admission and Anticipated Discharge Date Admission Date: February 27, 2022 Subjective Mr. Dalton was evaluated in his hospital room this morning. He remains mildly dyspneic and is awaiting dialysis and thoracentesis Review of Systems Constitutional: + fever Eyes: no problem reported Ear, Nose, Mouth, Throat: no problem reported Respiratory: + cough and + dyspnea Cardiovascular: no chest pain Gastrointestinal: no abdominal pain, no vomiting and no diarrhea/loose stools Integumentary: no problem reported Neurologic: no confusion Physical Exam Constitutional: + ill appearing Eyes: PERRL, conjunctivae normal, anicteric sclerae ENMT: external ear and nose normal, oropharynx normal Neck: trachea midline, no thyromegaly Respiratory: Auscultation: + diminished lung sounds (2/3 up on L side) Cardiovascular: Rate/Rhythm: regular rate and regular rhythm Gastrointestinal (Abdomen): normal bowel sounds, soft, nontender, no hepatosplenomegaly Neurologic: not confused Speech / Cognition: normal speech Results & Data ([facility]) Vital Signs (Past 12 Hours) Vital Signs Temp Pulse Pulse Resp BP Pulse Ox O2 Del Method 03/01/22 07:00 79 17 132/97 99 Nasal Cannula 03/01/22 03:23 36.4 C L 75 20 124/92 99 Nasal Cannula 02/28/22 22:18 79 02/28/22 22:40 36.8 C 77 20 111/80 94 Room Air O2 Flow Rate 03/01/22 07:00 2 03/01/22 03:23 2 02/28/22 22:18 02/28/22 22:40 Laboratory Results Laboratory Tests 03/01/22 03/01/22 03/01/22 05:30 05:30 05:30 WBC 5.96 Hgb 11.1 L Hct 34.4 L Plt Count 141 Sodium 136 Potassium 4.9 Chloride 101 Carbon Dioxide 26 BUN 30 H Creatinine 4.51 H* D Glucose 114 H Hemoglobin A1c 5.7 H Calcium 8.5 Diagnostic Findings 02/27/22 blood culture - no growth after 24 hours PG Care Time/CCT Total # of Minutes Spent Total Time Spent with Patient: Total time spent is greater than 50% in coordination of care (as documented) at patient's floor/unit and/or counseling patient: Coding Level of Care Code 34216 Subseq Hosp Care Lvl 3 Diagnoses ESRD (end stage renal disease) N18.6 Fever R50.9 Fever type: unspecified Recurrent left pleural effusion J90 (1) Fever Fever type: unspecified Qualified Code(s): R50.9 - Fever, unspecified
--- NOTE | 2022-03-01 13:13 | Pharmacy Report ---
Pharmacy PK ABX Note - Date of Service March 01, 2022 - Assessment and Plan Assessment 46 year old M receiving Vancomycin and Cefepime for treatment of pulmonary infection vs catheter infection. * PMHx significant for ESRD on HD MWF, T2DM, CAD. * Afebrile. No leukocytosis. * Blood cx no growth to date. MRSA nasal swab negative. * HD today, almost complete. Next HD session Friday. Plan Vancomycin * Pre-HD level obtained 03/01/22 resulted as 17.9 mcg/mL. This is predicted to achieve target AUC/ANA of 400-600 mg/L.hr * Will give 750 mg IV x 1 following HD today. * Will order random level prior to next HD session on: 03/04/22 Pharmacy will continue to follow and will adjust dose/frequency as necessary. Thank you. Pharmacy has transitioned to AUC monitoring for vancomycin. AUC/ANA is the preferred PK/PD target and is associated with decreased risk of nephrotoxicity compared to traditional trough targets.
--- NOTE | 2022-03-01 15:44 | Procedure Note ---
Procedure Note Date of Service March 01, 2022 Note Procedure: Diagnostic and therapeutic ultrasound-guided catheter thoracentesis Manufacturing Engineering Intern: Dr. Alfonzo Joel Indication: Pleural effusion Consent: Signed by patient and verified with timeout prior to procedure Anesthesia: 8 mL's of 1% lidocaine without epinephrine given locally Procedure: Consent was verified and timeout performed. Appropriate imaging studies were reviewed prior to the procedure. Patient was placed in a seated position and limited thoracic ultrasound was performed of the left chest. See separate imaging. The site appropriate for thoracentesis was selected. The skin was prepped and draped in normal sterile fashion. Lidocaine was used for local analgesia. Fluid was aspirated via the finder needle. A small skin mallory was made with the scalpel and the catheter over the needle apparatus was advanced over the rib into the pleural space. Using the syringe one-way valve system, a total [id number] mL's of christina colored fluid was removed. Procedure was terminated due to lack of flow. The catheter was removed and observed to be intact. A sterile dressing was applied. Post procedure chest x-ray was ordered. Fluid was sent for LDH, total protein, cell count, glucose, pH, cytology, gram stain and culture. The patient tolerated the procedure well without obvious complication. Coding CPT Codes Pulmonary/Thoracic - Pulmonary and Thoracic: 66164 Thoracentesis w imaging ([id number]) [facility] – [place], [place] Procedure Codes (Charges) Pulmonary/Thoracic Procedure 1: Pulmonary and Thoracic: 72347 Thoracentesis w imaging
--- NOTE | 2022-03-01 15:47 | Pulmonology Progress Note ---
Date of Service March 01, 2022 Assessment & Plan (1) Pleural effusion, left: Plan: 2L left thora done today. Studies sent for lights, cultures and infection. Ok to restart coumadin tomorrow. Ok for discharge from pulm perspective. Admission and Anticipated Discharge Date Admission Date: February 27, 2022 Subjective Less short of breath. No chest pain. No fevers. Review of Systems Review of Systems: All systems reviewed & are unremarkable except as noted in HPI & below Physical Exam Physical Exam: Constitutional: Patient appears to be of their stated age. Patient is in no apparent distress. Patient is well-developed. Eyes: Pupils are equal round and reactive to light. Conjunctivae are normal. Anicteric sclera. Ears nose, mouth and throat:deferred Neck: Trachea is midline. Visual inspection is normal. Respiratory: diminished on the left. clear otherwise Cardiovascular: Regular rate and rhythm. No murmurs. No edema. Gastrointestinal: Normal bowel sounds, soft, nontender and nondistended. No hepatosplenomegaly noted. Musculoskeletal: No cyanosis. Patient is able to move all extremities. Strength is 5 out of 5 in the upper and lower extremities. Skin: No rashes, warm dry and intact. Neurologic: No obvious focal neurological deficits seen. Psychiatric: Alert and oriented x3 with a euthymic affect. Results & Data Results & Data ([facility]) Vital Signs (Past 12 Hours) Vital Signs Temp Pulse Pulse Pulse Resp BP BP 03/01/22 13:35 36.6 C 73 137/92 03/01/22 13:00 71 123/86 03/01/22 12:30 78 130/90 03/01/22 12:00 76 138/70 03/01/22 11:30 76 138/70 03/01/22 11:00 78 123/83 03/01/22 10:30 71 126/92 03/01/22 10:00 71 131/89 03/01/22 09:53 36.4 C L 76 03/01/22 10:32 77 03/01/22 07:00 79 17 132/97 Pulse Ox O2 Del Method O2 Flow Rate 03/01/22 13:35 03/01/22 13:00 03/01/22 12:30 03/01/22 12:00 03/01/22 11:30 03/01/22 11:00 03/01/22 10:30 03/01/22 10:00 03/01/22 09:53 03/01/22 10:32 03/01/22 07:00 99 Nasal Cannula 2 PG Care Time/CCT Total # of Minutes Spent Total Time Spent with Patient: Total time spent is greater than 50% in coordination of care (as documented) at patient's floor/unit and/or counseling patient: Coding Level of Care Code 34259 Subseq Hosp Care Lvl 2 Diagnoses Pleural effusion, left J90
[2022-03-01] MEDS ORDERED: VANCOMYCIN HCL 750 MG in SODIUM CHLORIDE 0.9% 250 ML IV ONE (16:00)
[2022-03-01] MEDS ORDERED: CEFEPIME 1,000 MG in SYRINGE 0 ML IV SCH (16:00)
[2022-03-01] MEDS ORDERED: allopurinoL 100 MG TAB PO SCH (16:00)
--- NOTE | 2022-03-01 16:04 | XRay Report ---
XR chest 1V portable HISTORY: S/P Thoracentesis COMPARISON: Chest 02/27/2022. FINDINGS: Decrease in size in the now small left pleural effusion. Left basilar densities favor atele ctasis. No pneumothorax. A trace right pleural effusion persists. The heart remains mildly enlarged. A right central venous catheter terminates at the superior cavoatrial junction. This remains unchange d. IMPRESSION: Decrease in size in the now small left pleural effusion status post thoracentesis. No pneumothorax. ACT 112: Negative or not required by law. Electronically signed by: Romario Carpenter M.D. 03/01/2022 4:02 PM
[2022-03-01 16:40] LABS: Amylase Peritoneal Fluid 13 U/L; Glucose Peritoneal Fluid 111 mg/dl; LDH Peritoneal Fluid 137 U/L
[2022-03-01 16:58] LABS: Appearance Pleural Fluid Hazy; Color Pleural Fluid Amber; Eosinophils, Fluid 1 %; Lymphocytes, Fluid 12 %; Mono,Macrophage,Mesothelial 85 %; Neutrophils, Fluid 2 %; RBC Pleural Fluid Auto 18000 /uL; Source Pleural Fluid Left Lung; WBC Pleural Fluid Auto 427 /uL
--- NOTE | 2022-03-01 18:17 | Hospitalist Progress Note ---
Date of Service March 01, 2022 Assessment & Plan (1) Pleural effusion, left: Plan: Mr. Dalton is a 46 yo M with a PMHx of ESRD on HD, insulin dependent type II diabetes mellitus, and CAD s/p CABG several weeks ago who was admitted with progressive SOB. Recurrent left pleural effusion: - CT of the chest shows evidence of moderate left-sided pleural effusion.Discussed with radiology and they feel based on Hounsfield calculations it appears to be free-flowing and likely not empyema. - Pulmonary consulted, performed thoracentesis today. Analysis of pleural fluid pending - now breathing on room air Fever: - Patient noted to have temperature of 38.5 upon ED evaluation. - Patient also has a HD catheter in place for his hemodialysis needs; concern for possible catheter related infection - started on empiric treatment with vancomycin and cefepime - WBC normal, procal mildly elevated at 1.54. Lactate normal. Blood cultures showing no growth to date. - Since he has been fever free for 24 hours on the above antimicrobial regimen, abx will be stopped. So long as he remains fever free he does not need to have the catheter exchanged. Controlled type 1 diabetes mellitus with diabetic neuropathy, with long-term current use of insulin: - A1c 5.7 - patient using own insulin pump ESRD: - currently on HD - Nephrology following, had session today. Warfarin anticoagulation: - Patient is anticoagulated with Coumadin at home due to a history of paroxysmal Afib - Placed on hold due to upcoming thoracentesis --> scheduled to resume on 03/02/22 - check INR in AM CAD (coronary artery disease): - Patient has recent CABG with BA to LAD and robotic assisted BA harvest with a1 surgery performed in [place] 11/2021 - Continue antiplatelet with aspirin and Plavix, statin + zetia, losartan, metoprolol Hypertension: - Continue home dose of metoprolol and losartan for blood pressure control Hyperlipidemia: - Continue statin therapy with atorvastatin 40 mg daily + zetia Dvt ppx: On coumadin Diet: Heart Healthy, DMII Dispo: Med/tele. If he remains fever free overnight and into morning, can send home on 03/02/22 Code: Full Admission and Anticipated Discharge Date Admission Date: February 27, 2022 Subjective No acute events overnight. Patient did vomit once this morning - it was mostly mucous. Patient feeling well now, had HD session this am Review of Systems Review of Systems: All systems reviewed & are unremarkable except as noted in HPI & below Physical Exam Constitutional: WD/WN, vitals as above Eyes: + anicteric sclerae ENMT: external ear and nose normal, oropharynx normal Neck: trachea midline, no thyromegaly Respiratory: no cough Auscultation: + diminished lung sounds (left lower lobe ) Cardiovascular: Rate/Rhythm: regular rate and regular rhythm Heart Sounds: + murmur (systolic ejection ) Extremities: + vascular access device (R chest; there is no surrouning erythema or purulent drainage. ) Musculoskeletal: Head/Neck/Chest: normocephalic and head atraumatic Skin: no rashes, warm and dry Neurologic: moves all extremities Psychiatric: A+Ox3, euthymic affect Results & Data Results & Data ([facility]) Vital Signs (Past 12 Hours) Vital Signs Temp Pulse Pulse Pulse Resp BP BP 03/01/22 13:35 36.6 C 73 137/92 03/01/22 13:00 71 123/86 03/01/22 12:30 78 130/90 03/01/22 12:00 76 138/70 03/01/22 11:30 76 138/70 03/01/22 11:00 78 123/83 03/01/22 10:30 71 126/92 03/01/22 10:00 71 131/89 03/01/22 09:53 36.4 C L 76 03/01/22 10:32 77 03/01/22 07:00 79 17 132/97 Pulse Ox O2 Del Method O2 Flow Rate 03/01/22 13:35 03/01/22 13:00 03/01/22 12:30 03/01/22 12:00 03/01/22 11:30 03/01/22 11:00 03/01/22 10:30 03/01/22 10:00 03/01/22 09:53 03/01/22 10:32 03/01/22 07:00 99 Nasal Cannula 2 PG Care Time/CCT Total # of Minutes Spent Total Time Spent with Patient: Total time spent is greater than 50% in coordination of care (as documented) at patient's floor/unit and/or counseling patient: Coding Level of Care Code 04585 Subseq Hosp Care Lvl 2 Diagnoses Pleural effusion, left J90
[2022-03-01] MEDS: SENNA 8.6 MG TAB PO SCH (21:52)
[2022-03-01] MEDS: SERTRALINE HCL 100 MG TABLET PO SCH (21:52)
[2022-03-01] MEDS: CLOPIDOGREL BISULFATE 75 MG TAB PO SCH (21:52)
[2022-03-01] MEDS: ATORVASTATIN 40 MG TAB PO SCH (21:52)
[2022-03-01] MEDS: PREGABALIN 150 MG CAP PO SCH (21:52)
[2022-03-01] MEDS: predniSONE 5 MG TAB PO SCH (21:52)
[2022-03-01] MEDS: PANTOprazole 40 MG TAB PO SCH (21:52)
[2022-03-02 06:19] LABS: Hematocrit (blood only) 35.5 % (40.1-51.0); Hemoglobin 11.3 g/dl (14.0-18.0); Mean Corpuscular Hemoglobin 29.1 pg (25.0-34.0); Mean Corpuscular Hgb Conc 31.8 g/dL (32.0-36.0); Mean Corpuscular Volume 91.5 fL (80.0-100.0); Mean Platelet Volume 11.6 fL (9.4-12.4); Nucleated RBC # (auto) 0.02 K/uL (0-0); Nucleated RBC % (auto) 0.3 %; Platelet Count 153 K/uL (130-400); RDW Coefficient of Variation 19.5 % (11.5-14.5); RDW Standard Deviation 64.8 fL (36.4-46.3); Red Blood Count 3.88 M/uL (4.63-6.08); White Blood Count 5.82 K/ul (4.8-10.8)
[2022-03-02 06:43] LABS: BUN Creatinine Ratio 5.3 (10-20); Calcium 8.2 mg/dl (8.5-10.1); Creatinine Clr Calc Pharmacy 20.4 ml/min; Est GFR (African American) 20.9 ml/min; Potassium 4.5 mmol/L (3.5-5.1)
[2022-03-02 07:02] LABS: INR 1.6 (0.9-1.1); Prothrombin Time 16.2 Seconds (9.0-12.0)
[2022-03-02] MEDS: EZETIMIBE 10 MG TABLET PO SCH (07:49)
[2022-03-02] MEDS: LOSARTAN POTASSIUM 25 MG TAB PO SCH (07:49)
[2022-03-02] MEDS: MIDODRINE HCL 2.5 MG TAB PO SCH ×2 (07:49→12:01)
[2022-03-02] MEDS: METOPROLOL SUCC 25MG EXT REL TAB PO SCH (07:49)
[2022-03-02] MEDS: rOPINIRole HCL 0.25 MG TABLET PO SCH (07:49)
[2022-03-02] MEDS: TAMSULOSIN HCL 0.4 MG CAP PO SCH (07:49)
--- NOTE | 2022-03-02 07:53 | Discharge Summary ---
Discharge Summary Date of Service March 02, 2022 Admission HPI Per Admitting Provider This is a 46-year-old male with past medical history significant for history of end-stage renal disease on hemodialysis, status post CABG surgery few weeks ago, diabetes mellitus requiring insulin, coronary artery disease who presents to the emergency department complains of worsening shortness of breath. Patient reports that he was having his dialysis session and about 2 hours into the treatment he started experiencing worsening shortness of breath and hence presents to ED for further evaluation. Patient follows with Dr. Hadley of [facility] cardiology and also had a recent open heart surgery done in [place] in [place]. Patient was reported to have moderate mitral regurgitation along with moderate to severe patient subsequently had a robotic CABG followed by PCI to circumflex followed by TAVR given his comorbid conditions. Patient had a left thoracentesis and had 1.3 L removed during recent hospitalizations and is also being followed by thoracic medicine and has plans to have interventional radiology to perform a left-sided thoracentesis on Friday. Patient however developed worsening shortness of breath and presents to ED for further e valuation. Patient was placed on oxygen supplementation in the ED with improvement in his oxygenation with 3 L oxygen via nasal cannula. In the ED patient was found to have a temperature spike and was started on broad-spectrum IV antibiotics as he also has HD catheter in place. Admission Exam Per Admitting Provider Constitutional: WD/WN, vitals as above Neck: trachea midline, no thyromegaly Respiratory: Bilateral air entry slightly decreased at bases Left-sided air entry decreased no wheezing noted Cardiovascular: S1-S2 heard no rubs Gastrointestinal (Abdomen): normal bowel sounds, soft, nontender, no hepatosplenomegaly Musculoskeletal: Patient is status post BKA Neurologic: No focal deficits Principal Dx & Hospital Course #1 = Principal Diagnosis (1) Recurrent left pleural effusion: Admitted for worsening shortness of breath towards the end of a hemodialysis session. Patient evaluated in ED and found to be hypoxic with oxygen requirements. Resolved and on room air on discharge. CT of the chest showed evidence of moderate left-sided pleural effusion. No evidence of empyema; unclear why it recollected. S/p thoracentesis with resolution in symptoms. Follow up with Pulmonology outpatient (2) Fever: Patient noted to have temperature of 38.5 upon ED evaluation, but no fevers following. WBC count and BCx normal, no evidence of port infection on exam. Close follow up by PCP in TCM visit if continued fevers. (3) Uncontrolled type 1 diabetes mellitus with diabetic neuropathy, with long- term current use of insulin: A1c 5.7%, continue home regimen on discharge. (4) Warfarin anticoagulation: Patient is anticoagulated with Coumadin at home, continue. (5) CAD (coronary artery disease): Patient has recent CABG with BA to LAD and robotic assisted BA harvest with TAVR surgery performed in [place]. Patient denies any acute chest pain at this time. Continue antiplatelet with aspirin and Plavix. (6) Hypertension: Continue home dose of metoprolol and losartan for blood pressure control. (7) Hyperlipidemia: Continue statin therapy with atorvastatin 40 mg daily. (8) ESRD (end stage renal disease): Follow up with Nephrology [employer] at next dialysis session later this week. Outpatient follow up with vascular surgery will be arranged for transposition of RUE AVF. Discharge Exam Constitutional WD/WN, vitals as above Respiratory normal respiratory effort, lungs clear to auscultation Cardiovascular RRR, no murmur, no edema Skin no erythema surrounding port site in right upper chest, no tenderness to palpation, no purulent drainage Updated Medication List Medication Instructions Recorded Confirmed Type prednisone 5 mg tablet 5 mg PO HS #90 tabs 03/30/20 02/27/22 Rx clopidogrel 75 mg tablet (Plavix) 75 mg PO HS #30 tabs 03/20/21 02/27/22 Rx furosemide 40 mg tablet (Lasix) 80 mg PO DAILY #60 tabs 04/19/21 02/27/22 Rx ropinirole 0.5 mg tablet 0.5 mg PO DAILY #90 tabs 04/26/21 02/27/22 Rx Dexcom G6 Sensor (blood-glucose #9 ea 05/15/21 02/21/22 Rx sensor) Dexcom G6 Transmitter #1 ea 05/15/21 02/21/22 Rx (blood-glucose transmitter) insulin syringe-needle U-100 0.5 #200 ea 05/29/21 02/21/22 Rx mL 29 gauge x 1/2" (BD Insulin Syringe) ezetimibe 10 mg tablet (Zetia) 10 mg PO DAILY 12/14/21 02/27/22 History ferrous sulfate 325 mg (65 mg 325 mg PO BID 12/14/21 02/27/22 History iron) tablet metoprolol succinate 25 mg 12.5 mg PO BID 12/14/21 02/27/22 History tablet,extended release 24 hr sevelamer carbonate 800 mg tablet 1,600 mg PO TID 12/14/21 02/27/22 History (Renvela) tamsulosin 0.4 mg capsule 0.4 mg PO DAILY 12/14/21 02/27/22 History acetaminophen 325 mg tablet 650 mg PO Q6H PRN PAIN/FEVER 02/27/22 02/27/22 History (Tylenol) atorvastatin 80 mg tablet 40 mg PO HS 02/27/22 02/27/22 History calcitriol 0.25 mcg capsule 0.25 mcg PO 3XWK 02/27/22 02/27/22 History calcitriol 0.5 mcg capsule 0.5 mcg PO Q OTHER DAY 02/27/22 02/27/22 History clindamycin phosphate 1 % lotion 1 applic topical BID PRN ACNE AREAS 02/27/22 02/27/22 History colchicine 0.6 mg tablet 0.3 mg PO DAILY 02/27/22 02/27/22 History darbepoetin sarah in polysorbat 200 200 mcg subcut DIRECTED 02/27/22 02/27/22 History mcg/mL in polysorbate injection diclofenac sodium 1 % topical gel 2 g topical QID PRN Pain 02/27/22 02/27/22 History ergocalciferol (vitamin D2) 1,250 1,250 mcg PO WK 02/27/22 02/27/22 History mcg (50,000 unit) capsule (Vitamin D2) gentamicin 0.1 % topical cream 1 applic topical DIRECTED 02/27/22 02/27/22 History insulin aspart U-100 100 unit/mL 0 unit continuous subcutaneous 02/27/22 02/27/22 History subcutaneous solution (Novolog infusion CONTINOUS U-100 Insulin aspart) lidocaine-prilocaine 2.5 %-2.5 % 1 applic topical DIRECTED PRN 02/27/22 02/27/22 History topical cream TO DIALYSIS ACCESS LINE losartan 25 mg tablet 25 mg PO DAILY 02/27/22 02/27/22 History midodrine 5 mg tablet 5 mg PO AC 02/27/22 02/27/22 History pantoprazole 40 mg tablet,delayed 40 mg PO HS 02/27/22 02/27/22 History release potassium chloride 10 mEq 20 meq PO DAILY 02/27/22 02/27/22 History capsule,extended release pregabalin 75 mg capsule 150 mg PO HS 02/27/22 02/27/22 History sennosides 8.6 mg tablet (senna) 17.2 mg PO HS 02/27/22 02/27/22 History sertraline 100 mg tablet 100 mg PO HS 02/27/22 02/27/22 History warfarin 2 mg tablet 4 mg PO QPM 02/27/22 02/27/22 History allopurinol 100 mg tablet 100 mg PO .3X WEEKLY 02/28/22 02/28/22 History Hospital Stay Data Consultations 02/27/22 20:15 ED Decision to Admit Stat 02/27/22 23:58 Consult Nephrology Routine Consult Pulmonology Routine Diagnostic Imagining Performed 02/27/22 17:18 CT chest diagnostic w con Stat 03/01/22 14:57 US point of care ultrasound Urgent Discharge Instructions Given to Patient (Per Discharging Provider) You were admitted to the hospital for evaluation of trouble breathing. You were found to have recollection of pleural fluid in the lung, which was removed by Pu lmonology by a process called a thoracentesis. This fluid fortunately did not appear to be infected. You were initially on antibiotics in case the fluid was infected given your fever, but these were stopped and you were not discharged on antibiotics. You will have close follow up with Dr. Amador with the Nephrology office, including later this week with the nurse practitioner at your dialysis appointment. We also recommend follow up outpatient with the Pulmonology office (Dr. Joel). His office is aware of your consult and need for appointment, but if you do not hear from their office by Friday please call [phone] to schedule a hospital follow up for "recurrent pleural effusion". Your medications were not changed while you were admitted to the hospital, so please resume your home medications on discharge. If you have any return of trouble breathing, recurrent fevers at home, chest pain, or other acute medical concerns, please seek urgent medical attention. Total Time Total Time Spent Total Time Spent (In Minutes): 45 minutes Coding Level of Care Code D/C DAY MANAGEMENT >30 MINS Diagnoses Recurrent left pleural effusion J90 Fever R50.9 Fever type: unspecified Uncontrolled type 1 diabetes mellitus with diabetic neuropathy, with long-term current use of insulin E10.40; E10.65 Warfarin anticoagulation Z79.01 CAD (coronary artery disease) I25.10 Hypertension I10 Hyperlipidemia E78.5 ESRD (end stage renal disease) N18.6
--- NOTE | 2022-03-02 12:10 | Nephrology Progress Note ---
Date of Service March 02, 2022 Assessment & Plan (1) ESRD (end stage renal disease): Plan: * HD MWF. BP and volume status are acceptable. Adequate clearance with treatment. Next anticipated HD will be Friday. * Monitor PRP * Protect R upper arm AVF. Outpatient follow up with vascular surgery will be arranged for transposition. * TDC has been functioning well. No signs of catheter infection at this time. (2) Fever: Plan: * Intermittent low grade fever. Blood cultures negative for growth. Pleural fluid negative for growth. Pleural fluid does not demonstrate evidence of empyema or infection. * I discussed the plan of care and need for close outpatient follow up with Constantine and Dr. Adams this AM. (3) Recurrent left pleural effusion: Plan: * s/p thoracentesis with 2 L of christina fluid yesterday. * Close outpatient follow up, as above. Admission and Anticipated Discharge Date Admission Date: February 27, 2022 Subjective No acute events overnight. Constantine feels well this AM. No fevers or chills. Denies shortness of breath. Tolerated HD without complications. Cough improved. No chest pain. Constantine was seen and evaluated with his at the bedside. They are hopeful that he can be discharged home. Constantine feels well. He is planning to start cardiac rehab and has close outpatient follow up scheduled. Review of Systems Review of Systems: All systems reviewed & are unremarkable except as noted in HPI & below Physical Exam Constitutional: well developed; no acute distress Eyes: + anicteric sclerae; no corneal abnormality ENMT: Mouth: no oral mucosal abnormality and oral mucous membranes not dry Neck: normal visual inspection and trachea midline Respiratory: normal respiratory effort Auscultation: lungs clear to auscultation bilaterally and + rales Cardiovascular: Rate/Rhythm: regular rate Heart Sounds: normal S1, normal S2 and + murmur Extremities: + AV fistula; no edema Musculoskeletal: Extremities: + amputation noted (L BKA); no cyanosis and no clubbing Skin: normal turgor; no lesions Neurologic: Motor/Sensory: no tremor and no asterixis Psychiatric: Orientation: alert and oriented x 3 Results & Data ([facility]) Vital Signs (Past 12 Hours) Vital Signs Temp Pulse Pulse Resp BP Pulse Ox O2 Del Method 03/02/22 07:55 37.0 C 86 18 125/88 99 Room Air 03/02/22 04:10 36.4 C L 75 16 110/81 96 Room Air Laboratory Results Laboratory Results - last 24 hr 03/01/22 03/01/22 03/01/22 Unknown Unknown Unknown WBC RBC Hgb Hct MCV MCH MCHC RDW Std Deviation RDW Coeff of Michelle Plt Count MPV Absolute Nucleated RBC Nucleated RBC % (auto) PT INR Sodium Potassium Chloride Carbon Dioxide Anion Gap BUN Creatinine Est Cr Clr Drug Dosing Est GFR ( Amer) Est GFR (Non-Af Amer) BUN/Creatinine Ratio Glucose Calcium Fluid Neutrophils % 2 Fluid Lymphocytes % 12 Fluid Eosinophils % 1 Fluid Meso/Macro/Churchill % 85 Fluid Comment Peritoneal LDH 137 Peritoneal Glucose 111 Peritoneal Amylase 13 Pleural Fluid Source Left Lung Pleural Color Christina Pleural Appearance Hazy Pleural pH 7.43 H Pleural WBC (Auto) 427 Pleural RBC (Auto) 06109 Pleural Total Protein Pleural Cholesterol 03/01/22 03/01/22 03/02/22 Unknown Unknown 05:53 WBC 5.82 RBC 3.88 L Hgb 11.3 L Hct 35.5 L MCV 91.5 MCH 29.1 MCHC 31.8 L RDW Std Deviation 64.8 H RDW Coeff of Michelle 19.5 H Plt Count 153 MPV 11.6 Absolute Nucleated RBC 0.02 H Nucleated RBC % (auto) 0.3 PT INR Sodium Potassium Chloride Carbon Dioxide Anion Gap BUN Creatinine Est Cr Clr Drug Dosing Est GFR ( Amer) Est GFR (Non-Af Amer) BUN/Creatinine Ratio Glucose Calcium Fluid Neutrophils % Fluid Lymphocytes % Fluid Eosinophils % Fluid Meso/Macro/Churchill % Fluid Comment Peritoneal LDH Peritoneal Glucose Peritoneal Amylase Pleural Fluid Source Pleural Color Pleural Appearance Pleural pH Pleural WBC (Auto) Pleural RBC (Auto) Pleural Total Protein 3.1 Pleural Cholesterol Pending 03/02/22 03/02/22 05:53 05:53 WBC RBC Hgb Hct MCV MCH MCHC RDW Std Deviation RDW Coeff of Michelle Plt Count MPV Absolute Nucleated RBC Nucleated RBC % (auto) PT 16.2 H INR 1.6 H Sodium 135 L Potassium 4.5 Chloride 103 Carbon Dioxide 24 Anion Gap 8 BUN 20 Creatinine 3.78 H D Est Cr Clr Drug Dosing 20.4 Est GFR ( Amer) 20.9 Est GFR (Non-Af Amer) 18.0 BUN/Creatinine Ratio 5.3 L Glucose 109 H Calcium 8.2 L Fluid Neutrophils % Fluid Lymphocytes % Fluid Eosinophils % Fluid Meso/Macro/Churchill % Fluid Comment Peritoneal LDH Peritoneal Glucose Peritoneal Amylase Pleural Fluid Source Pleural Color Pleural Appearance Pleural pH Pleural WBC (Auto) Pleural RBC (Auto) Pleural Total Protein Pleural Cholesterol PG Care Time/CCT Total # of Minutes Spent Total Time Spent with Patient: Total time spent is greater than 50% in coordination of care (as documented) at patient's floor/unit and/or counseling patient: Coding Level of Care Code 14522 Subseq Hosp Care Lvl 3 Diagnoses ESRD (end stage renal disease) N18.6 Fever R50.9 Fever type: unspecified Recurrent left pleural effusion J90 (1) Fever Fever type: unspecified Qualified Code(s): R50.9 - Fever, unspecified
--- NOTE | 2022-03-02 12:27 | Pulmonology Progress Note ---
Date of Service March 02, 2022 Assessment & Plan (1) Pleural effusion, left: Plan: 2L left thora done 03/02/2022. Studies suggested a transudate likely related to the patient's ESRD. Okay to discharge home and restart Coumadin. Admission and Anticipated Discharge Date Admission Date: February 27, 2022 Subjective Doing very well postthoracentesis. Denies any chest pain. He is eager for discharge. Shortness of breath is improved significantly. Cough improved as well. Review of Systems Review of Systems: All systems reviewed & are unremarkable except as noted in HPI & below Physical Exam Physical Exam: Constitutional: Patient appears to be of their stated age. Patient is in no apparent distress. Patient is well-developed. Eyes: Pupils are equal round and reactive to light. Conjunctivae are normal. Anicteric sclera. Ears nose, mouth and throat:deferred Neck: Trachea is midline. Visual inspection is normal. Respiratory: diminished on the left. clear otherwise Cardiovascular: Regular rate and rhythm. No murmurs. No edema. Gastrointestinal: Normal bowel sounds, soft, nontender and nondistended. No hepatosplenomegaly noted. Musculoskeletal: No cyanosis. Patient is able to move all extremities. Strength is 5 out of 5 in the upper and lower extremities. Skin: No rashes, warm dry and intact. Neurologic: No obvious focal neurological deficits seen. Psychiatric: Alert and oriented x3 with a euthymic affect. Results & Data Results & Data ([facility]) Vital Signs (Past 12 Hours) Vital Signs Temp Pulse Pulse Resp BP Pulse Ox O2 Del Method 03/02/22 07:55 37.0 C 86 18 125/88 99 Room Air 03/02/22 04:10 36.4 C L 75 16 110/81 96 Room Air PG Care Time/CCT Total # of Minutes Spent Total Time Spent with Patient: Total time spent is greater than 50% in coordination of care (as documented) at patient's floor/unit and/or counseling patient: Coding Level of Care Code 04064 Subseq Hosp Care Lvl 2 Diagnoses Pleural effusion, left J90
[2022-03-02] MEDS ORDERED: WARFARIN SOD 4 MG TAB PO SCH (16:00)
== END 2022-03-02 14:00 | disposition home or self-care (01) | DRG 186 ==
LOC: ED 14:12 → SUATTDRO 21:25 → EDINP 21:25 → 2E 02-28 16:49

== ENCOUNTER 2022-06-05 17:09 | Inpatient (IN) ==
--- NOTE | 2022-06-05 17:28 | ED Triage Note ---
Date of Service June 05, 2022 History of Present Illness This patient was briefly evaluated while in triage. An abbreviated physical exam was performed. This patient is a 46-year-old Male, history of GERD, CAD, type 1 diabetes, end- stage renal disease on hemodialysis, aortic stenosis, and CHF status post CABG, who presents to the ED for evaluation of abdominal pain. The patient was just seen today by ANTONIO Soni, and was referred to the emergency department for concerns of abnormal liver function, possibly a blockage within the common bile duct or otherwise causing blockage of the liver. The patient is also currently seeing infectious disease for his right foot, and last saw them 1 week ago. They were concerned that the patient is currently in fluid overload. His last dialysis was this morning. Physical Exam CONSTITUTIONAL: Healthy and well nourished. Alert and oriented X 3. HEENT: Normocephalic, atraumatic. Pupils equal, round and reactive. NECK: Full active range of motion without discomfort. RESPIRATORY: Clear to auscultation bilaterally with no wheezing, crackles, rhonchi or stridor. CARDIOVASCULAR: Regular rate and rhythm with no murmurs, rubs or gallops. GASTROINTESTINAL: Bowel sounds present in all quadrants. Abdomen is prominent without any focal tenderness to palpation. INTEGUMENTARY: No rash or other significant dermatologic conditions noted. HEMATOLOGIC: No ecchymosis or petechiae. PSYCHIATRIC: Positive affect. NEUROLOGIC: No focal neurologic deficits noted. Initial orders for labs and / or imaging were placed and patient was placed in the waiting area until a bed is available. Please see further documentation for the full ED course.
--- NOTE | 2022-06-05 17:42 | Emergency Department Note ---
Impression & Plan Sepsis, ESRD on dialysis, Cellulitis of leg, right, Diabetic foot ulcer ED Provider Note NAME: JEIMY GALINDO AGE: 46 SEX: M : 1975 ARRIVES VIA: Walk-In INFORMANT: Patient, ED PROVIDER(S): Evgeny Bryant MD CHIEF COMPLAINT: Fever MEDICAL DECISION MAKING: Patient presents due to concern for fever Sepsis protocols were initiated but the patient did not initially receive a 30 cc/kg bolus as there was concern as the patient already had associated volume overload but the patient was hypertensive. Patient was first given a 250 cc bolus in addition of broad-spectrum antibiotics lactate blood cultures. Patient also did have wound cultures taken from the patient's right foot. Patient's blood count showed a normal white count with a hemoglobin of 8.8 which is slightly lower than before but the patient does have ESRD. Patient's INR is 4.6. Kidney function with a creatinine of 2.6. The patient did have his di alysis today. Potassium 3.3. Sodium 134. Initial lactate of 7.1. Bilirubin of 10. Patient's bilirubin was 11 in May. Patient's initial troponin is 26. Patient denies any chest pains or shortness of breath. BNP at 2800. Pro-Lele 1.3. COVID flu RSV negative. BioFire negative. Patient's chest x-ray does show cardiomegaly and pleural effusions. I did speak the on-call hospitalist service Dr. Lima and the patient was admitted to the medicine service patient's repeat lactate was 4.2. Prior /Outside records reviewed: Did review the patient's most recent primary care visit with Dr. Costa. Patient has a known history of ESRD on HD insulin- dependent type 2 diabetes CAD status post CABG. Patient did have a CABG done at [facility] Per review the patient's discharge summary from Dr. Valera in January 2022. Patient to have robotic CABG followed by PCI to circumflex followed by TAVR. Patient did have a left-sided thoracentesis during recent hospitalization Differential diagnosis: Sepsis, UTI, pneumonia, metabolic, electrolyte abnormalities, cardiac sources, intracerebral event, toxicologic, neurologic, as well as other pathologies. Diagnostics, as interpreted by me: ECG: Normal sinus rhythm, rate of 79, normal GA and RS, normal axis Q-wave in lead V2. Cardiac monitoring: An order was placed for continuous cardiac monitoring. The monitor shows a rate of 82 with sinus rhythm. Patient was placed on pulse oximetry Medical decision rules: None Imaging studies: See below HPI: Patient presents due to concern for fever was referred as an outpatient after he had a CT completed today. Patient states that he was seen by his watch case polisher and does have a history of jaundice. Patient denies any shortness of breath or chest pains. Patient does present with a fever denies any cough. The patient states that he is compliant with his medications. Patient denies any alcohol use. Patient did have a CABG and TAVR procedure completed at [facility] in [place] back in January. Patient also relates that he has had diarrhea. The patient does follow with wound care and does have a diabetic ulcer of the right foot. Patient states that he has had diarrhea for several weeks. PAST MEDICAL HISTORY: See Below PAST SURGICAL HISTORY: See Below SOCIAL HISTORY: See Below HOME MEDICATIONS: See Below ALLERGIES: See Below VITALS: See Below PHYSICAL EXAMINATION: GENERAL: NAD, wearing a mask, non-toxic. Wearing glasses and a baseball cap. EYE EXAM: Normal conjunctiva. PERRL, no anisocoria and EOM's grossly intact w/o pain. NECK: Supple, no nuchal rigidity, no adenopathy, non-tender. No signs of meningismus. FROM of the neck with good chin to chest and neck extension. No stridor. LUNGS: Bibasilar crackles. Normal chest wall mechanics. HEART: NSR, no MRG. ABDOMEN: Abdomen soft, non-tender, no masses, no rebound or guarding. BACK: No CVA TTP. SKIN: No rashes and no bruising. UPPER EXTREMITIES: Upper extremities are grossly normal. LOWER EXTREMITIES: Left lower extremity leg amputation, right lower extremity with redness of the light with 2 separate stage II ulcerations to the foot 1 on the dorsum and 1 on the heel. NEURO EXAM: A&O x3, cranial nerves II-XII grossly intact, normal speech, moves all 4 extremities. Past Med/Surg History Medical History Acute respiratory failure with hypoxia AMI anterolateral wall 2016 Anemia Anxiety CAD (coronary artery disease) Chewing tobacco nicotine dependence CHF (congestive heart failure) Deep vein thrombosis Depression Diabetes mellitus type 1 INSULIN PUMP Diabetic peripheral neuropathy End-stage renal failure with renal transplant Fistula Fluid retention Gait abnormality Gout Grief reaction Hypoalbuminemia Inhibited sexual excitement Mitral regurgitation Non-ST elevation (NSTEMI) myocardial infarction DIANE (obstructive sleep apnea) Peripheral neuropathy Recurrent left pleural effusion RLS (restless legs syndrome) Sensory problems with limbs Sleep apnea CPAP STEMI (ST elevation myocardial infarction) Swelling of left hand Type 1 diabetes Vitamin D deficiency Warfarin anticoagulation Surgical History H/O eye surgery LEFT/RT LASER SURGERY History of below knee amputation LEFT REVISION (5 TOTAL) History of cardiac cath 2016 - [place] - [facility] - 2 STENTS - FOLLOWS W/ DR. JURADO History of heart artery stent 2016 (2 STENTS PLACED) AT [facility] History of right hip replacement 03/17/2019 [facility] History of total replacement of right hip Hx of BKA Kidney transplant recipient 2001 Kidney transplant recipient Status post left hip replacement Status post total hip replacement, left Family History Grandfather Family history of diabetes mellitus Other No family history of adverse response to anesthesia Social History Smoking Status: Never smoker Second Hand Exposure: No; Do You Dip or Chew Tobacco: Yes; Hx Alcohol Use: No Hx Substance Use: No Preferred Language: German Communication Ability: Effective Blue Leather Setter Required: No Beliefs That Will Affect Care: None marital status: Current Living Situation: Spouse and Family current occupational status: employed 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 - [employer] How many Children do You have: 2 How many Children do You have Comment: 1 is Other Information That Helps Us Care for You: No Feels Safe at Home: Yes Safety Concerns: Feels Safe At This Time Assistive Devices: Cane, CPAP, Glasses and Prosthesis Allergies Allergies Allergy/AdvReac Type Severity Reaction Status Date / Time pork derived (porcine) Allergy Intermediate Hives with Verified 06/05/22 19:14 Pork Insulin lactose Allergy Mild Unknown Verified 06/05/22 19:14 sacubitril [From Entresto] AdvReac Severe Hypotension Verified 06/05/22 19:14 valsartan [From Entresto] AdvReac Severe Hypotension Verified 06/05/22 19:14 Home Meds Home Medications Medication Instructions Recorded Confirmed ezetimibe 10 mg tablet (Zetia) 10 mg PO DAILY 12/14/21 06/05/22 ferrous sulfate 325 mg (65 mg 325 mg PO BID 12/14/21 06/05/22 iron) tablet metoprolol succinate 25 mg 12.5 mg PO BID 12/14/21 06/05/22 tablet,extended release 24 hr sevelamer carbonate 800 mg tablet 1,600 mg PO TID 12/14/21 06/05/22 (Renvela) acetaminophen 325 mg tablet 650 mg PO Q6H PRN PAIN/FEVER 02/27/22 06/05/22 (Tylenol) atorvastatin 80 mg tablet 40 mg PO HS 02/27/22 06/05/22 calcitriol 0.5 mcg capsule 0.5 mcg PO Q OTHER DAY 02/27/22 06/05/22 colchicine 0.6 mg tablet 0.3 mg PO DAILY 02/27/22 06/05/22 ergocalciferol (vitamin D2) 1,250 1,250 mcg PO WK 02/27/22 06/05/22 mcg (50,000 unit) capsule (Vitamin D2) lidocaine-prilocaine 2.5 %-2.5 % 1 applic topical DIRECTED PRN 02/27/22 06/05/22 topical cream TO DIALYSIS ACCESS LINE losartan 25 mg tablet 25 mg PO DAILY 02/27/22 06/05/22 potassium chloride 10 mEq 20 meq PO DAILY 02/27/22 06/05/22 capsule,extended release warfarin 2 mg tablet 2 - 4 mg PO DIRECTED 02/27/22 06/05/22 allopurinol 100 mg tablet 100 mg PO .3X WEEKLY 02/28/22 06/05/22 darbepoetin sarah in polysorbat 200 200 mcg subcut DIRECTED 04/05/22 06/05/22 mcg/mL in polysorbate injection omeprazole 20 mg capsule,delayed 20 mg PO BID 05/02/22 06/05/22 release calcium carbonate 200 mg calcium 0 mg PO TIDM 06/05/22 06/05/22 (500 mg) chewable tablet (Tums) furosemide 40 mg tablet (Lasix) 80 mg PO DAILY PRN .Wt gain 06/05/22 06/05/22 midodrine 5 mg tablet 5 mg PO TIDM 06/05/22 06/05/22 Previous Rx's Medication Instructions Recorded clopidogrel 75 mg tablet (Plavix) 75 mg PO HS #30 tabs 03/20/21 ropinirole 0.5 mg tablet 0.5 mg PO DAILY #90 tabs 04/26/21 insulin syringe-needle U-100 0.5 #200 ea 05/29/21 mL 29 gauge x 1/2" (BD Insulin Syringe) pregabalin 75 mg capsule 75 mg PO BID #240 caps 04/08/22 sertraline 100 mg tablet 100 mg PO HS #90 tabs 04/17/22 Dexcom G6 Transmitter #1 ea 04/25/22 (blood-glucose transmitter) Dexcom G6 Sensor (blood-glucose #9 ea 04/26/22 sensor) insulin aspart U-100 100 unit/mL 45 unit (0.45 mL) continuous 05/08/22 subcutaneous solution (Novolog subcutaneous infusion CONTINOUS U-100 Insulin aspart) #30 mL tamsulosin 0.4 mg capsule 0.4 mg PO DAILY #90 caps 05/20/22 collagenase clostridium histo. 250 1 applic topical DAILY 14 days #90 05/27/22 unit/gram topical ointment (Santyl) grams prednisone 5 mg tablet 5 mg PO HS #90 tabs 05/30/22 Results & Data (ED) Vital Signs Vital Signs - 24 hr 06/05/22 17:25 06/05/22 18:21 06/05/22 18:03 Temperature 38.1 C H Temperature Source Oral Pulse Rate 83 78 81 Pulse Rate [Apical] Pulse Rhythm [Apical] Pulse Strength [Apical] Respiratory Rate 18 18 Respiratory Effort / Characteristics Non-Labored Spontaneous Respiratory Depth Normal Respiratory Pattern Blood Pressure 91/48 L Blood Pressure [Left Arm] Blood Pressure Mean 62 Blood Pressure Mean [Left Arm] Blood Pressure Position Sitting Blood Pressure Position [Left Arm] Pulse Oximetry 98 97 Oxygen Delivery Method Room Air Room Air Sepsis Recent Fever Within 48 Hours Yes Sepsis New/Unexplained Change in Mental Status N/A Sepsis Action Taken by Nursing Physician Notified 06/05/22 19:08 06/05/22 19:22 Temperature 37.4 C Temperature Source Oral Pulse Rate Pulse Rate [Apical] 80 77 Pulse Rhythm [Apical] Regular Pulse Strength [Apical] Normal Respiratory Rate 16 16 Respiratory Effort / Characteristics Non-Labored Spontaneous Respiratory Depth Normal Respiratory Pattern Regular Blood Pressure Blood Pressure [Left Arm] 97/59 L 100/47 L Blood Pressure Mean Blood Pressure Mean [Left Arm] 71 64 Blood Pressure Position Blood Pressure Position [Left Arm] Lying Pulse Oximetry 97 95 Oxygen Delivery Method Room Air Room Air Sepsis Recent Fever Within 48 Hours Sepsis New/Unexplained Change in Mental Status Sepsis Action Taken by [facility] Medications Current Medication List: was personally reviewed by me Laboratory Data Attestation: I reviewed the patient's lab results. 06/05/22 17:55 06/05/22 17:55 Lab Results 06/05/22 06/05/22 06/05/22 Range/Units 17:55 17:55 17:55 WBC 6.15 (4.8-10.8) K/ul RBC 2.91 L (4.70-6.10) M/uL Hgb 8.8 L (14.0-18.0) g/dl Hct 25.4 L (42.0-52.0) % MCV 87.3 (80.0-100.0) fL MCH 30.2 (25.0-34.0) pg MCHC 34.6 (32.0-36.0) g/dL RDW Std Deviation 92.8 H (36.4-46.3) fL RDW Coeff of Michelle 30.1 H (11.5-14.5) % Plt Count 134 (130-400) K/uL Immature Gran % (Auto) 1.6 % Neut % (Auto) 69.5 % Lymph % (Auto) 14.1 % [place] % (Auto) 8.5 % Eos % (Auto) 5.5 % Baso % (Auto) 0.8 % Neut # (Auto) 4.27 (1.40-6.50) K/uL Lymph # (Auto) 0.87 L (1.2-3.4) K/uL [place] # (Auto) 0.52 (0.11-0.59) K/uL Eos # (Auto) 0.34 (0-0.50) K/uL Baso # (Auto) 0.05 (0-0.2) K/uL Immature Gran # (Auto) 0.10 (0.01-0.20) K/uL Polychromasia 1+ Target Cells 2+ Sodium 134 L (136-145) mmol/L Potassium 3.3 L (3.5-5.1) mmol/L Chloride 94 L (98-107) mmol/L Carbon Dioxide 23 (21-32) mmol/L Anion Gap 17 H (3-11) BUN 21 (6-23) mg/dl Creatinine 2.68 H (0.6-1.4) mg/dl Est Cr Clr Drug Dosing Not Reportable Est GFR ( Amer) 31.6 ml/min Est GFR (Non-Af Amer) 27.3 ml/min BUN/Creatinine Ratio 7.8 L (10-20) Glucose 378 H* (70-99(Fasting)) mg/dl Lactate (0.4-2.0) mmol/L Calcium 8.1 L (8.6-10.3) mg/dl Magnesium 2.1 (1.7-2.4) mg/dl Total Bilirubin 10.1 H (0.2-1.0) mg/dl Direct Bilirubin TNP AST 32 (13-39) U/L ALT 19 (7-52) U/L Alkaline Phosphatase 504 H (34-104) U/L Troponin I High Sens 26.3 H (0-20) pg/ml B-Natriuretic Peptide 2869 H (0-100) pg/ml Total Protein 6.1 (6.0-8.3) gm/dl Albumin 3.2 L (3.4-5.0) gm/dl Globulin 2.9 (2.5-4.0) gm/dl Albumin/Globulin Ratio 1.1 (0.9-2) Lipase 7 L (11-82) U/L Procalcitonin (0-0.5) ng/ml Adenovirus (PCR) (NotDetected) B. pertussis DNA (PCR) (NotDetected) B.parapertussis DNA PCR (NotDetected) C. pneumoniae DNA (PCR) (NotDetected) Coronavirus OC43 (PCR) (NotDetected) Coronavirus HKU1 (PCR) (NotDetected) Coronavirus 229E (PCR) (NotDetected) SARS-CoV-2 (PCR) (NotDetected) Coronavirus NL63 (PCR) (NotDetected) Human Metapneumovir PCR (NotDetected) Influenza Type A (PCR) (NotDetected) Influenza Type B (PCR) (NotDetected) M. pneumoniae (PCR) (NotDetected) Parainfluenza 1 (PCR) (NotDetected) Parainfluenza 2 (PCR) (NotDetected) Parainfluenza 3 (PCR) (NotDetected) Parainfluenza 4 (PCR) (NotDetected) RSV (PCR) (NotDetected) Entero/Rhino (PCR) (NotDetected) 06/05/22 06/05/22 06/05/22 Range/Units 17:55 17:55 19:37 WBC (4.8-10.8) K/ul RBC (4.70-6.10) M/uL Hgb (14.0-18.0) g/dl Hct (42.0-52.0) % MCV (80.0-100.0) fL MCH (25.0-34.0) pg MCHC (32.0-36.0) g/dL RDW Std Deviation (36.4-46.3) fL RDW Coeff of Michelle (11.5-14.5) % Plt Count (130-400) K/uL Immature Gran % (Auto) % Neut % (Auto) % Lymph % (Auto) % [place] % (Auto) % Eos % (Auto) % Baso % (Auto) % Neut # (Auto) (1.40-6.50) K/uL Lymph # (Auto) (1.2-3.4) K/uL [place] # (Auto) (0.11-0.59) K/uL Eos # (Auto) (0-0.50) K/uL Baso # (Auto) (0-0.2) K/uL Immature Gran # (Auto) (0.01-0.20) K/uL Polychromasia Target Cells Sodium (136-145) mmol/L Potassium (3.5-5.1) mmol/L Chloride (98-107) mmol/L Carbon Dioxide (21-32) mmol/L Anion Gap (3-11) BUN (6-23) mg/dl Creatinine (0.6-1.4) mg/dl Est Cr Clr Drug Dosing Est GFR ( Amer) ml/min Est GFR (Non-Af Amer) ml/min BUN/Creatinine Ratio (10-20) Glucose (70-99(Fasting)) mg/dl Lactate 7.1 H* (0.4-2.0) mmol/L Calcium (8.6-10.3) mg/dl Magnesium (1.7-2.4) mg/dl Total Bilirubin (0.2-1.0) mg/dl Direct Bilirubin AST (13-39) U/L ALT (7-52) U/L Alkaline Phosphatase (34-104) U/L Troponin I High Sens (0-20) pg/ml B-Natriuretic Peptide (0-100) pg/ml Total Protein (6.0-8.3) gm/dl Albumin (3.4-5.0) gm/dl Globulin (2.5-4.0) gm/dl Albumin/Globulin Ratio (0.9-2) Lipase (11-82) U/L Procalcitonin 1.35 H (0-0.5) ng/ml Adenovirus (PCR) Not Detected (NotDetected) B. pertussis DNA (PCR) Not Detected (NotDetected) B.parapertussis DNA PCR Not Detected (NotDetected) C. pneumoniae DNA (PCR) Not Detected (NotDetected) Coronavirus OC43 (PCR) Not Detected (NotDetected) Coronavirus HKU1 (PCR) Not Detected (NotDetected) Coronavirus 229E (PCR) Not Detected (NotDetected) SARS-CoV-2 (PCR) Not Detected (NotDetected) Coronavirus NL63 (PCR) Not Detected (NotDetected) Human Metapneumovir PCR Not Detected (NotDetected) Influenza Type A (PCR) Not Detected (NotDetected) Influenza Type B (PCR) Not Detected (NotDetected) M. pneumoniae (PCR) Not Detected (NotDetected) Parainfluenza 1 (PCR) Not Detected (NotDetected) Parainfluenza 2 (PCR) Not Detected (NotDetected) Parainfluenza 3 (PCR) Not Detected (NotDetected) Parainfluenza 4 (PCR) Not Detected (NotDetected) RSV (PCR) Not Detected (NotDetected) Entero/Rhino (PCR) Not Detected (NotDetected) 06/05/22 Range/Units 19:55 WBC (4.8-10.8) K/ul RBC (4.70-6.10) M/uL Hgb (14.0-18.0) g/dl Hct (42.0-52.0) % MCV (80.0-100.0) fL MCH (25.0-34.0) pg MCHC (32.0-36.0) g/dL RDW Std Deviation (36.4-46.3) fL RDW Coeff of Michelle (11.5-14.5) % Plt Count (130-400) K/uL Immature Gran % (Auto) % Neut % (Auto) % Lymph % (Auto) % [place] % (Auto) % Eos % (Auto) % Baso % (Auto) % Neut # (Auto) (1.40-6.50) K/uL Lymph # (Auto) (1.2-3.4) K/uL [place] # (Auto) (0.11-0.59) K/uL Eos # (Auto) (0-0.50) K/uL Baso # (Auto) (0-0.2) K/uL Immature Gran # (Auto) (0.01-0.20) K/uL Polychromasia Target Cells Sodium (136-145) mmol/L Potassium (3.5-5.1) mmol/L Chloride (98-107) mmol/L Carbon Dioxide (21-32) mmol/L Anion Gap (3-11) BUN (6-23) mg/dl Creatinine (0.6-1.4) mg/dl Est Cr Clr Drug Dosing Est GFR ( Amer) ml/min Est GFR (Non-Af Amer) ml/min BUN/Creatinine Ratio (10-20) Glucose (70-99(Fasting)) mg/dl Lactate 4.2 H* (0.4-2.0) mmol/L Calcium (8.6-10.3) mg/dl Magnesium (1.7-2.4) mg/dl Total Bilirubin (0.2-1.0) mg/dl Direct Bilirubin AST (13-39) U/L ALT (7-52) U/L Alkaline Phosphatase (34-104) U/L Troponin I High Sens (0-20) pg/ml B-Natriuretic Peptide (0-100) pg/ml Total Protein (6.0-8.3) gm/dl Albumin (3.4-5.0) gm/dl Globulin (2.5-4.0) gm/dl Albumin/Globulin Ratio (0.9-2) Lipase (11-82) U/L Procalcitonin (0-0.5) ng/ml Adenovirus (PCR) (NotDetected) B. pertussis DNA (PCR) (NotDetected) B.parapertussis DNA PCR (NotDetected) C. pneumoniae DNA (PCR) (NotDetected) Coronavirus OC43 (PCR) (NotDetected) Coronavirus HKU1 (PCR) (NotDetected) Coronavirus 229E (PCR) (NotDetected) SARS-CoV-2 (PCR) (NotDetected) Coronavirus NL63 (PCR) (NotDetected) Human Metapneumovir PCR (NotDetected) Influenza Type A (PCR) (NotDetected) Influenza Type B (PCR) (NotDetected) M. pneumoniae (PCR) (NotDetected) Parainfluenza 1 (PCR) (NotDetected) Parainfluenza 2 (PCR) (NotDetected) Parainfluenza 3 (PCR) (NotDetected) Parainfluenza 4 (PCR) (NotDetected) RSV (PCR) (NotDetected) Entero/Rhino (PCR) (NotDetected) Administered Medications Atorvastatin Calcium (Atorvastatin 40 Mg Tab) 40 mg PO HS REBECCA Stop: 07/05/22 22:06 Last Admin: 06/05/22 23:46 Dose: 40 mg Documented By: ISATU Clopidogrel Bisulfate (Clopidogrel Bisulfate 75 Mg Tab) 75 mg PO HS REBECCA Stop: 07/05/22 22:06 Last Admin: 06/05/22 23:47 Dose: 75 mg Documented By: ISATU Dextrose (Dextrose 50% 50 Ml Syringe) 25 - 50 ml IV UD PRN; Protocol PRN Reason: Hypoglycemia Protocol Stop: 07/05/22 22:06 Last Admin: 06/05/22 23:28 Dose: 50 ml Documented By: ISATU Dextrose (D5w) 1,000 mls @ 80 mls/hr IV .[id number] REBECCA Stop: 06/06/22 12:14 Last Admin: 06/05/22 23:53 Dose: 80 mls/hr Documented By: ISATU Pantoprazole Sodium (Pantoprazole 40 Mg Tab) 40 mg PO BID REBECCA Stop: 07/05/22 22:06 Last Admin: 06/05/22 23:47 Dose: 40 mg Documented By: ISATU Prednisone (Prednisone 5 Mg Tab) 5 mg PO HS REBECCA Stop: 07/05/22 22:06 Last Admin: 06/05/22 23:47 Dose: 5 mg Documented By: ISATU Pregabalin (Pregabalin 75 Mg Cap) 75 mg PO BID REBECCA Stop: 07/05/22 22:06 Last Admin: 06/05/22 23:53 Dose: 75 mg Documented By: ISATU Sertraline HCl (Sertraline Hcl 100 Mg Tablet) 100 mg PO HS REBECCA Stop: 07/05/22 22:06 Last Admin: 06/05/22 23:48 Dose: 100 mg Documented By: ISATU Discontinued Medications Acetaminophen (Acetaminophen 500 Mg Tab) 1,000 mg PO NOW STA Stop: 06/05/22 18:13 Last Admin: 06/05/22 18:30 Dose: 1,000 mg Documented By: JEFF Dextrose (Dextrose 50% 50 Ml Syringe) Confirm Administered Dose 50 ml IV .STK- MED ONE Stop: 06/05/22 21:45 Last Admin: 06/05/22 21:45 Dose: 50 ml Documented By: ISATU Vancomycin HCl 1,250 mg/ (Sodium Chloride) 525 mls @ 200 mls/hr IV NOW STA Stop: 06/05/22 20:40 Last Infusion: 06/05/22 22:23 Dose: 0 mls/hr Documented By: Admin: 06/05/22 19:05 Dose: 200 mls/hr Documented By: VENICE Piperacillin Sod/Tazobactam Sod (Zosyn) 4.5 gm in 120 mls @ 240 mls/hr IV NOW STA Stop: 06/05/22 18:32 Last Infusion: 06/05/22 19:01 Dose: 0 mls/hr Documented By: Admin: 06/05/22 18:31 Dose: 240 mls/hr Documented By: JEFF Sodium Chloride (Nss 1000ml) 250 mls @ 999 mls/hr IV .Q16M ONE Stop: 06/05/22 18:19 Last Infusion: 06/05/22 18:47 Dose: 0 mls/hr Documented By: Admin: 06/05/22 18:31 Dose: 999 mls/hr Documented By: JEFF Sodium Chloride (Nss 1000ml) 500 mls @ 999 mls/hr IV .Q31M ONE Stop: 06/05/22 19:08 Last Infusion: 06/05/22 22:22 Dose: 0 mls/hr Documented By: Admin: 06/05/22 21:18 Dose: 999 mls/hr Documented By: VENICE Lactated Ringer's (Lr) 500 mls @ 999 mls/hr IV .Q31M ONE Stop: 06/05/22 22:37 Last Infusion: 06/05/22 23:02 Dose: 0 mls/hr Documented By: Admin: 06/05/22 22:25 Dose: 999 mls/hr Documented By: ISATU Imaging Data Radiologist's Impression: Chest X-Ray 06/05/22 17:28 XR chest 1V portable HISTORY: Shortness of breath. COMPARISON: Chest 05/07/2022. FINDINGS: No pneumothorax. Small right and moderate left pleural effusion again noted. Left basilar densities persist. Old, healed left-sided rib fracture. A right central venous catheter terminates in the distal SVC. Mild central pulmonary vascular congestion without overt edema. IMPRESSION: 1. No change in the small right and moderate left pleural effusions. 2. Cardiomegaly and mild central pulmonary vascular congestion again noted. ACT 112: Negative or not required by law. Electronically signed by: Romario Carpenter M.D. 06/05/2022 6:18 PM Discharge Plan Visit Data Chief Complaint: Referred by Doctor Stated Complaint: LIVER PROBLEMS, DR REF ED Provider: Evgeny Bryant Discharge Problem: Sepsis, ESRD on dialysis, Cellulitis of leg, right, Diabetic foot ulcer Patient Disposition: Admitted As Inpatient Discharge Instructions Interventions: ED Discharge Assessment Last Done: 06/05/22 21:27
[2022-06-05] MEDS ORDERED: VANCOMYCIN HCL 1,250 MG in SODIUM CHLORIDE 0.9% 500 ML IV STA (18:03)
[2022-06-05] MEDS ORDERED: PIPERACILLIN/TAZOBACTAM 4.5 GM/120 ML BAG IV STA (18:03)
[2022-06-05] MEDS ORDERED: VANCOMYCIN CONSULT ACTIVE PRN (18:03)
[2022-06-05] MEDS ORDERED: SODIUM CHLORIDE 0.9% 1000ML 250 ML IV ONE (18:04)
[2022-06-05] MEDS ORDERED: ACETAMINOPHEN 500 MG TAB PO STA (18:12)
--- NOTE | 2022-06-05 18:19 | XRay Report ---
XR chest 1V portable HISTORY: Shortness of breath. COMPARISON: Chest 05/07/2022. FINDINGS: No pneumothorax. Small right and moderate left pleural effusion again noted. Left basilar d ensities persist. Old, healed left-sided rib fracture. A right central venous catheter terminates in the distal SVC. Mild central pulmonary vascular congestion without overt edema. IMPRESSION: 1. No change in the small right and moderate left pleural effusions. 2. Cardiomegaly and mild central pulmonary vascular congestion again noted. ACT 112: Negative or not required by law. Electronically signed by: Romario Carpenter M.D. 06/05/2022 6:18 PM
[2022-06-05] MEDS ORDERED: SODIUM CHLORIDE 0.9% 1000ML 500 ML IV ONE (18:38)
[2022-06-05 18:41] LABS: Basophils # (auto) 0.05 K/uL (0-0.2); Basophils % (auto) 0.8 %; Eosinophils # (auto) 0.34 K/uL (0-0.50); Eosinophils % (auto) 5.5 %; Hematocrit (blood only) 25.4 % (42.0-52.0); Hemoglobin 8.8 g/dl (14.0-18.0); Immature Granulocytes % (auto) 1.6 %; Lymphocytes # (auto) 0.87 K/uL (1.2-3.4); Lymphocytes % (auto) 14.1 %; Mean Corpuscular Hemoglobin 30.2 pg (25.0-34.0); Mean Corpuscular Hgb Conc 34.6 g/dL (32.0-36.0); Mean Corpuscular Volume 87.3 fL (80.0-100.0); Monocytes # (auto) 0.52 K/uL (0.11-0.59); Monocytes % (auto) 8.5 %; Neutrophils # (auto) 4.27 K/uL (1.40-6.50); Neutrophils % (auto) 69.5 %; Platelet Count 134 K/uL (130-400); Polychromasia 1+; RDW Coefficient of Variation 30.1 % (11.5-14.5); RDW Standard Deviation 92.8 fL (36.4-46.3); Red Blood Count 2.91 M/uL (4.70-6.10); Target Cells 2+; White Blood Count 6.15 K/ul (4.8-10.8)
[2022-06-05 18:53] LABS: Alanine Aminotransferase 19 U/L (7-52); Albumin Globulin Ratio 1.1 (0.9-2); Albumin Level 3.2 gm/dl (3.4-5.0); Alkaline Phosphatase 504 U/L (34-104); Anion Gap 17 (3-11); Aspartate Aminotransferase 32 U/L (13-39); BUN Creatinine Ratio 7.8 (10-20); Bilirubin,Total 10.1 mg/dl (0.2-1.0); Blood Urea Nitrogen 21 mg/dl (6-23); Calcium 8.1 mg/dl (8.6-10.3); Carbon Dioxide 23 mmol/L (21-32); Chloride 94 mmol/L (98-107); Est GFR (African American) 31.6 ml/min; Est GFR (Non-African American) 27.3 ml/min; Globulin 2.9 gm/dl (2.5-4.0); Glucose 378 mg/dl (70-99(Fasting)); Lipase 7 U/L (11-82); Magnesium 2.1 mg/dl (1.7-2.4); Potassium 3.3 mmol/L (3.5-5.1); Sodium 134 mmol/L (136-145); Total Protein 6.1 gm/dl (6.0-8.3); Troponin I High Sensitivity 26.3 pg/ml (0-20)
--- NOTE | 2022-06-05 20:40 | History & Physical Report ---
Date of Service June 05, 2022 Assessment & Plan (1) Elevated bilirubin: Plan: Constantine Dalton Is a 46-year-old male with history of end-stage renal disease with failed renal transplant now on dialysis, CAD status post CABG with ischemic cardiomyopathy/HFrEF, type 1 diabetes, diabetic ulcers unhealing on right lower extremity and prior VTE on Coumadin anticoagulation presenting from GI clinic with concern for abnormal labs - Tbili=11.9 and AP of 663, concern for bile duct pathology. Patient febrile on arrival. Mild diffuse abdominal pain. No RUQ tenderness or guarding. Repeat Tbili in the ER=10.1, AK=355. No leukocytosis. Procalcitonin elevated at 1.35. Lactate initially 7.1 which improved to 4.2 after minimal IVF 750mL. Concern for bile duct obstruction, possible cholangitis developing given fever, lactate level and procalcitonin. -Check RUQUS STAT - study performed, awaiting reading -Consider MRCP pending results of above -Zosyn 3.375gm IV q 6 -GI consultation appreciated -Keep patient NPO after midnight -LR x 500mL bolus -Repeat Lactic acid level with VBG (2) Fever: Plan: Possible gallbladder/CBD disease, foot ulceration, infectious/inflammatory diarrhea or UTI as sources. Patient with improving lactate level. Blood pressure is low but near baseline. -Continue workup for infectious source - stool PCR, UA, ESR, CRP -X-ray foot -RUQ US -Follow cultures -Tylenol PRN (3) Diarrhea: Plan: Patient reports one month of persistent diarrhea with blood and mucus in the stools. He was seen by GI for this complaint - per chart review, he did complete a course of PO vancomycin. Possibly secondary in part to lactose intolerance. Patient is minimally immunocompromised on chronic steroids -Check Stool PCR -Check stool c. diff -Consider O and P study (4) Diabetic ulcer of right ankle: Plan: Patient with non-healing ulcer on right heel as well as dorsum of right foot. He was previously seen by wound care. Has been treating the wound at home with Santyl and dressing changes daily. His right foot was x-rayed on 05/14/22 which revealed soft tissue swelling and no acute bony abnormality. He had an aorta with runoff CTA study today 06/05/22 which revealed extensive vascular calcifications with three-vessel flow to the right ankle. Multifocal mild to moderate stenosis of the arteries of the right lower leg. COrtical irregularity of the distal left femoral amputation stump likely postsurgical - chronic osteo can appear similarly. -Check ESR and CRP -Check MRI right foot -Wound care consultation appreciated (5) Diabetic ulcer of right heel: (6) ESRD (end stage renal disease): Plan: Patient with ESRD on HD q M/W/F. Last full treatment 06/05/22. He makes very minimal urine. He is s/p failed renal transplant. Does report some pain in his right lower abdomen where his transplant is located. Stranding around transplant noted on CT imaging. No emergent need for HD at this time. May need an extra session in AM for fluid removal. Electrolytes and metabolic profile acceptable at this time. -Nephrology consultation appreciated -Continue Renagel -Continue Calcitriol Patient reports low baseline blood pressures specifically on HD days. He takes Midodrine TID -Continue Midodrine (7) Kidney transplant failure: Plan: Noted -Continue Prednisone 5mg po daily (8) Type 1 diabetes: Plan: Patient with well controlled Type I DM. Last UbeJ6O=2.7 in January 2022. He has an insulin pump in place. Hyperglycemic on arrival with WKE=595, likely secondary in part to underlying infection. -Will hold insulin pump -Lantus 8u BID -ISS -Pharmacy glycemic management consultation appreciated -Continue Lyrica for neuropathy (9) CAD (coronary artery disease): Plan: Patient with CAD s/p robotic-assisted CABG with subsequent stenting with MAR x 2 on 12/03/21.. He denies chest pain. Mild elevation of troponin=26.3 in setting of ESRD. No acute EKG changes. Patient follows with Cardiology - Dr. Jurado -Telemetry monitoring -Repeat troponin x 1 -Continue Plavix -Check 2D echo (10) Hypotension: Plan: Patient with chronically low blood pressures. Is relatively asymptomatic. He is on Midodrine for BP <90. -Continue Midodrine -Will hold Metoprolol and Losartan for now -Continue to monitor (11) Hyperlipidemia: Plan: Chronic. -Continue Zetia -Continue Atorvastatin (12) GERD (gastroesophageal reflux disease): Plan: Chronic. Stable -Protonix 40mg po BID (13) Moderate obstructive sleep apnea: Plan: Chronic. Patient reports compliance with CPAP -Continue CPAP qHS (14) Ischemic cardiomyopathy: Plan: Recovering EF. Last echo on record 12/20/22 with moderate LV systolic dysfunction, biatrial dilatation. Mild RV dilatation. Moderate calcific . -Check 2D echo -Holding Lasix for now -Holding Losartan and Metoprolol given low blood pressures -Monitor I/Os and daily weights F/E/N - LR 500mL bolus x 1, monitor electrolytes, NPO for now Ppx - Check INR, patient on Coumadin - holding for possible ERCP Code - Full per discussion with patient Dispo -Admit to PCU History of Present Illness Chief Complaint: shortness of breath Primary Care Provider: NO PCP Constantine Dalton is a 46yo male with multiple medical comorbidities sent from GI clinic after abnormal labs were obtained - specifically elevated Tbili of 11.9 on outpatient labs. Concern for possible CBD pathology. He was seen in GI clinic today and had an aorta with runoff CTA performed. Unable to view today's GI note and PCP note from 06/04/22. Patient with several complaints today. He has diffuse abdominal pain, mostly in RLQ as well as abdominal bloating. He reports persistent diarrhea ongoing for the last month. Multiple episodes of diarrhea daily, watery with both blood and mucus. His diarrhea tends to occur after meals. He was seen by GI for this complaint on 05/02/22. He was treated presumptively for C. diff with PO vancomycin. He reports his symptoms improved but then reoccurred after discontinuation of the Vancomycin. He has been taking Immodium with some improvement. He feels that his diarrhea may be secondary to lactose intolerance. He has also had one month of intermittent nausea and vomiting. He reports intermittent fevers, typically on HD days. Febrile today at 38.1. No additional complaints. He denies chest pain, palpitations, SOB. He makes a small amount of urine. In the ER he is febrile, mildly hypotensive. NAD. Patient is medically complex. He has well controlled Type I DM with insulin pump in place (last OdnE5R=5.7 on 03/01/22). ESRD s/p renal transplant now on HD q M/W/F on chronic Prednisone therapy, no further immunosuppressive agents. (Follows with Dr. Amador. Last full HD treatment 06/05/22). CAD s/p minimally invasive robotic-assisted CABG (BA to LAD) on 11/29/21. He had a cardiac catheterization on 12/03/21 which revealed occlusion of the BA to LAD graft s/p atherectomy, angioplasty and stenting x 2. CHF with last echo 02/21/22 with apical akinesis, mid inferior and inferoseptal hypokinesis and EF of 35-40%. Patient with recurrent pleural effusion s/p thoracentesis. He has PAD s/p right BKA. Now with unhealing wound on dorsum of right foot as well as right heel with deep eschar. He was following with Wound clinic. ER Course: Wound cultures obtained Blood cultures obtained Vancomycin NSS x 250mL Zosyn 4.5gm Tylenol 1gm Allergies Allergy/AdvReac Type Severity Reaction Status Date / Time pork derived (porcine) Allergy Intermediate Hives with Verified 06/05/22 19:14 Pork Insulin lactose Allergy Mild Unknown Verified 06/05/22 19:14 sacubitril [From Entresto] AdvReac Severe Hypotension Verified 06/05/22 19:14 valsartan [From Entresto] AdvReac Severe Hypotension Verified 06/05/22 19:14 Home Medications Medication Instructions Recorded Confirmed Type clopidogrel 75 mg tablet (Plavix) 75 mg PO HS #30 tabs 03/20/21 06/05/22 Rx ropinirole 0.5 mg tablet 0.5 mg PO DAILY #90 tabs 04/26/21 06/05/22 Rx insulin syringe-needle U-100 0.5 #200 ea 05/29/21 06/05/22 Rx mL 29 gauge x 1/2" (BD Insulin Syringe) ezetimibe 10 mg tablet (Zetia) 10 mg PO DAILY 12/14/21 06/05/22 History ferrous sulfate 325 mg (65 mg 325 mg PO BID 12/14/21 06/05/22 History iron) tablet metoprolol succinate 25 mg 12.5 mg PO BID 12/14/21 06/05/22 History tablet,extended release 24 hr sevelamer carbonate 800 mg tablet 1,600 mg PO TID 12/14/21 06/05/22 History (Renvela) acetaminophen 325 mg tablet 650 mg PO Q6H PRN PAIN/FEVER 02/27/22 06/05/22 History (Tylenol) atorvastatin 80 mg tablet 40 mg PO HS 02/27/22 06/05/22 History calcitriol 0.5 mcg capsule 0.5 mcg PO Q OTHER DAY 02/27/22 06/05/22 History colchicine 0.6 mg tablet 0.3 mg PO DAILY 02/27/22 06/05/22 History ergocalciferol (vitamin D2) 1,250 1,250 mcg PO WK 02/27/22 06/05/22 History mcg (50,000 unit) capsule (Vitamin D2) lidocaine-prilocaine 2.5 %-2.5 % 1 applic topical DIRECTED PRN 02/27/22 06/05/22 History topical cream TO DIALYSIS ACCESS LINE losartan 25 mg tablet 25 mg PO DAILY 02/27/22 06/05/22 History potassium chloride 10 mEq 20 meq PO DAILY 02/27/22 06/05/22 History capsule,extended release warfarin 2 mg tablet 2 - 4 mg PO DIRECTED 02/27/22 06/05/22 History allopurinol 100 mg tablet 100 mg PO .3X WEEKLY 02/28/22 06/05/22 History darbepoetin sarah in polysorbat 200 200 mcg subcut DIRECTED 04/05/22 06/05/22 History mcg/mL in polysorbate injection pregabalin 75 mg capsule 75 mg PO BID #240 caps 04/08/22 06/05/22 Rx sertraline 100 mg tablet 100 mg PO HS #90 tabs 04/17/22 06/05/22 Rx Dexcom G6 Transmitter #1 ea 04/25/22 06/05/22 Rx (blood-glucose transmitter) Dexcom G6 Sensor (blood-glucose #9 ea 04/26/22 06/05/22 Rx sensor) omeprazole 20 mg capsule,delayed 20 mg PO BID 05/02/22 06/05/22 History release insulin aspart U-100 100 unit/mL 45 unit (0.45 mL) continuous 05/08/22 06/05/22 Rx subcutaneous solution (Novolog subcutaneous infusion CONTINOUS U-100 Insulin aspart) #30 mL tamsulosin 0.4 mg capsule 0.4 mg PO DAILY #90 caps 05/20/22 06/05/22 Rx collagenase clostridium histo. 250 1 applic topical DAILY 14 days #90 05/27/22 06/05/22 Rx unit/gram topical ointment (Santyl) grams prednisone 5 mg tablet 5 mg PO HS #90 tabs 05/30/22 06/05/22 Rx calcium carbonate 200 mg calcium 0 mg PO TIDM 06/05/22 06/05/22 History (500 mg) chewable tablet (Tums) furosemide 40 mg tablet (Lasix) 80 mg PO DAILY PRN .Wt gain 06/05/22 06/05/22 History midodrine 5 mg tablet 5 mg PO TIDM 06/05/22 06/05/22 History Past Med/Surg History Medical History Acute respiratory failure with hypoxia AMI anterolateral wall 2016 Anemia Anxiety CAD (coronary artery disease) Chewing tobacco nicotine dependence CHF (congestive heart failure) Deep vein thrombosis Depression Diabetes mellitus type 1 INSULIN PUMP Diabetic peripheral neuropathy End-stage renal failure with renal transplant Fistula Fluid retention Gait abnormality Gout Grief reaction Hypoalbuminemia Inhibited sexual excitement Mitral regurgitation Non-ST elevation (NSTEMI) myocardial infarction DIANE (obstructive sleep apnea) Peripheral neuropathy Recurrent left pleural effusion RLS (restless legs syndrome) Sensory problems with limbs Sleep apnea CPAP STEMI (ST elevation myocardial infarction) Swelling of left hand Type 1 diabetes Vitamin D deficiency Warfarin anticoagulation Surgical History H/O eye surgery LEFT/RT LASER SURGERY History of below knee amputation LEFT REVISION (5 TOTAL) History of cardiac cath 2016 - [place] - [facility] - 2 STENTS - FOLLOWS W/ DR. JURADO History of heart artery stent 2016 (2 STENTS PLACED) AT [facility] History of right hip replacement 03/17/2019 [facility] History of total replacement of right hip Hx of BKA Kidney transplant recipient 2001 Kidney transplant recipient Status post left hip replacement Status post total hip replacement, left Family History Grandfather Family history of diabetes mellitus Other No family history of adverse response to anesthesia Social History Smoking Status: Never smoker Second Hand Exposure: No; Do You Dip or Chew Tobacco: Yes; Hx Alcohol Use: No Hx Substance Use: No Preferred Language: Croatian Communication Ability: Effective Unclaimed Property Officer Required: No Beliefs That Will Affect Care: None marital status: Current Living Situation: Spouse and Family current occupational status: employed 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 - [employer] How many Children do You have: 2 How many Children do You have Comment: 1 is Other Information That Helps Us Care for You: No Feels Safe at Home: Yes Safety Concerns: Feels Safe At This Time Assistive Devices: Cane, CPAP, Glasses and Prosthesis Review of Systems Review of Systems: All systems reviewed & are unremarkable except as noted in HPI & below Physical Exam Physical Exam: General: patient resting comfortably, NAD, non-toxic in appearance, AA&O x 4 Skin: large ulcerative lesion on right heel with eschar, shallow base ulcerative lesion on dorsum of right foot with some areas of black eschar, small amount of serous drainage HEENT: NC/AT, PERRL, EOMI, anicteric sclera, conjunctiva without injection, external ear normal to inspection and nontender, nares patent, moist mucus membranes, poor dentition, no oropharyngeal lesions, neck supple, trachea midline, no LAD, no thyromegaly, no JVD Heart: +S1/S2, regular, 3/6 DEMOND across precordium, well healed scar left lateral chest, right tunneled CVC Lungs: equal air entry bilaterally, no rales/rhonchi/wheezes Abd: +BS, soft, mildly distended, tympanic to percussion, diffusely tender with no rebound/guarding/peritonitis Ext: s/p left BKA, right foot wounds as above, RUE AVF with palpable thrill Neuro: nonfocal, patient AA&O x 4, speech intact, no facial droop, moving all extremities on command with equal strength 5/5 Results & Data Results & Data Vital Signs (Past 12 Hours) Vital Signs Temp Pulse Pulse Resp BP BP Pulse Ox 06/05/22 19:08 80 16 97/59 L 97 06/05/22 18:03 81 18 97 06/05/22 18:21 78 06/05/22 17:25 38.1 C H 83 18 91/48 L 98 O2 Del Method 06/05/22 19:08 Room Air 06/05/22 18:03 Room Air 06/05/22 18:21 06/05/22 17:25 Room Air Laboratory Results Laboratory Results WBC 6.15 K/ul (4.8-10.8) 06/05/22 17:55 RBC 2.91 M/uL (4.70-6.10) L 06/05/22 17:55 Hgb 8.8 g/dl (14.0-18.0) L 06/05/22 17:55 Hct 25.4 % (42.0-52.0) L 06/05/22 17:55 MCV 87.3 fL (80.0-100.0) 06/05/22 17:55 MCH 30.2 pg (25.0-34.0) 06/05/22 17: MCHC 34.6 g/dL (32.0-36.0) 06/05/22 17:55 RDW Std Deviation 92.8 fL (36.4-46.3) H 06/05/22 17:55 RDW Coeff of Michelle 30.1 % (11.5-14.5) H 06/05/22 17: Plt Count 134 K/uL (130-400) 06/05/22 17:55 Immature Gran % (Auto) 1.6 % 06/05/22 17:55 Neut % (Auto) 69.5 % 06/05/22 17:55 Lymph % (Auto) 14.1 % 06/05/22 17:55 Loíza % (Auto) 8.5 % 06/05/22 17:55 Eos % (Auto) 5.5 % 06/05/22 17:55 Baso % (Auto) 0.8 % 06/05/22 17:55 Neut # (Auto) 4.27 K/uL (1.40-6.50) 06/05/22 17:55 Lymph # (Auto) 0.87 K/uL (1.2-3.4) L 06/05/22 17:55 Loíza # (Auto) 0.52 K/uL (0.11-0.59) 06/05/22 17:55 Eos # (Auto) 0.34 K/uL (0-0.50) 06/05/22 17:55 Baso # (Auto) 0.05 K/uL (0-0.2) 06/05/22 17:55 Immature Gran # (Auto) 0.10 K/uL (0.01-0.20) 06/05/22 17:55 Polychromasia 1+ 06/05/22 17:55 Target Cells 2+ 06/05/22 17:55 Sodium 134 mmol/L (136-145) L 06/05/22 17:55 Potassium 3.3 mmol/L (3.5-5.1) L 06/05/22 17:55 Chloride 94 mmol/L (98-107) L 06/05/22 17:55 Carbon Dioxide 23 mmol/L (21-32) 06/05/22 17:55 Anion Gap 17 (3-11) H 06/05/22 17:55 BUN 21 mg/dl (6-23) 06/05/22 17:55 Creatinine 2.68 mg/dl (0.6-1.4) H 06/05/22 17:55 Est Cr Clr Drug Dosing Not Reportable 06/05/22 17:55 Est GFR ( Amer) 31.6 ml/min 06/05/22 17:55 Est GFR (Non-Af Amer) 27.3 ml/min 06/05/22 17:55 BUN/Creatinine Ratio 7.8 (10-20) L 06/05/22 17:55 Glucose 378 mg/dl (70-99(Fasting)) H* 06/05/22 17:55 Lactate 4.2 mmol/L (0.4-2.0) H* 06/05/22 19:55 Calcium 8.1 mg/dl (8.6-10.3) L 06/05/22 17:55 Magnesium 2.1 mg/dl (1.7-2.4) 06/05/22 17:55 Total Bilirubin 10.1 mg/dl (0.2-1.0) H 06/05/22 17:55 Direct Bilirubin TNP 06/05/22 17:55 AST 32 U/L (13-39) 06/05/22 17:55 ALT 19 U/L (7-52) 06/05/22 17:55 Alkaline Phosphatase 504 U/L (34-104) H 06/05/22 17:55 Troponin I High Sens 26.3 pg/ml (0-20) H 06/05/22 17:55 B-Natriuretic Peptide 2869 pg/ml (0-100) H 06/05/22 17:55 Total Protein 6.1 gm/dl (6.0-8.3) 06/05/22 17:55 Albumin 3.2 gm/dl (3.4-5.0) L 06/05/22 17:55 Globulin 2.9 gm/dl (2.5-4.0) 06/05/22 17:55 Albumin/Globulin Ratio 1.1 (0.9-2) 06/05/22 17:55 Lipase 7 U/L (11-82) L 06/05/22 17:55 Procalcitonin 1.35 ng/ml (0-0.5) H 06/05/22 17:55 Adenovirus (PCR) Not Detected (NotDetected) 06/05/22 19:37 B. pertussis DNA (PCR) Not Detected (NotDetected) 06/05/22 19:37 B.parapertussis DNA PCR Not Detected (NotDetected) 06/05/22 19:37 C. pneumoniae DNA (PCR) Not Detected (NotDetected) 06/05/22 19:37 Coronavirus OC43 (PCR) Not Detected (NotDetected) 06/05/22 19:37 Coronavirus HKU1 (PCR) Not Detected (NotDetected) 06/05/22 19:37 Coronavirus 229E (PCR) Not Detected (NotDetected) 06/05/22 19:37 SARS-CoV-2 (PCR) Not Detected (NotDetected) 06/05/22 19:37 Coronavirus NL63 (PCR) Not Detected (NotDetected) 06/05/22 19:37 Human Metapneumovir PCR Not Detected (NotDetected) 06/05/22 19:37 Influenza Type A (PCR) Not Detected (NotDetected) 06/05/22 19:37 Influenza Type B (PCR) Not Detected (NotDetected) 06/05/22 19:37 M. pneumoniae (PCR) Not Detected (NotDetected) 06/05/22 19:37 Parainfluenza 1 (PCR) Not Detected (NotDetected) 06/05/22 19:37 Parainfluenza 2 (PCR) Not Detected (NotDetected) 06/05/22 19:37 Parainfluenza 3 (PCR) Not Detected (NotDetected) 06/05/22 19:37 Parainfluenza 4 (PCR) Not Detected (NotDetected) 06/05/22 19:37 RSV (PCR) Not Detected (NotDetected) 06/05/22 19:37 Entero/Rhino (PCR) Not Detected (NotDetected) 06/05/22 19:37 Impressions Chest X-Ray 06/05/22 17:28 XR chest 1V portable HISTORY: Shortness of breath. COMPARISON: Chest 05/07/2022. FINDINGS: No pneumothorax. Small right and moderate left pleural effusion again noted. Left basilar densities persist. Old, healed left-sided rib fracture. A right central venous catheter terminates in the distal SVC. Mild central pulmonary vascular congestion without overt edema. IMPRESSION: 1. No change in the small right and moderate left pleural effusions. 2. Cardiomegaly and mild central pulmonary vascular congestion again noted. ACT 112: Negative or not required by law. Electronically signed by: Romario Carpenter M.D. 06/05/2022 6:18 PM ECG Additional Comments: EKG with NSR at 79, normal axis, FQ=433, CSP=220, UOx=647, low voltage QRS, no acute changes PG Care Time/CCT Total # of Minutes Spent Total Time Spent with Patient: Total time spent is greater than 50% in coordination of care (as documented) at patient's floor/unit and/or counseling patient: Coding Level of Care Code 36946 INT INP/OBS CARE 375MIN Diagnoses Elevated bilirubin R17 Fever R50.9 Diarrhea R19.7 Diabetic ulcer of right ankle E11.622; L97.319 Diabetic ulcer of right heel E11.621; L97.419 ESRD (end stage renal disease) N18.6 Kidney transplant failure T86.12 Type 1 diabetes E10.9 CAD (coronary artery disease) I25.10 Hypotension I95.9 Hyperlipidemia E78.5 GERD (gastroesophageal reflux disease) K21.9 Moderate obstructive sleep apnea G47.33 Ischemic cardiomyopathy I25.5
[2022-06-05 20:43] LABS: Adenovirus PCR Not Detected (NotDetected); Bordetella parapertussis PCR Not Detected (NotDetected); Bordetella pertussis PCR Not Detected (NotDetected); Chlamydia pneumoniae PCR Not Detected (NotDetected); Coronavirus 229E PCR Not Detected (NotDetected); Coronavirus CoV-2 (COVID19)PCR Not Detected (NotDetected); Coronavirus HKU1 PCR Not Detected (NotDetected); Coronavirus NL63 PCR Not Detected (NotDetected); Coronavirus OC43PCR Not Detected (NotDetected); Human Metapneumovirus PCR Not Detected (NotDetected); Influenza A PCR Not Detected (NotDetected); Influenza B PCR Not Detected (NotDetected); Mycoplasma pneumoniae PCR Not Detected (NotDetected); Parainfluenza Virus 1 PCR Not Detected (NotDetected); Parainfluenza Virus 2 PCR Not Detected (NotDetected); Parainfluenza Virus 3 PCR Not Detected (NotDetected); Parainfluenza Virus 4 PCR Not Detected (NotDetected); Respiratory Syncytial VirusPCR Not Detected (NotDetected); Rhinovirus/Enterovirus PCR Not Detected (NotDetected)
--- NOTE | 2022-06-05 21:32 | Ultrasound Report ---
Exam(s): US LIVER EXAM: US Abdomen Limited, Right Upper Quadrant CLINICAL HISTORY: Reason for exam: Bilirubin=10.1. TECHNIQUE: Real-time ultrasound of the right upper quadrant with image documentation. COMPARISON: Ultrasound abdomen on 05/24/2022. FINDINGS: Liver: Liver measures 18.3 cm, mildly enlarged. Increased echogenicity of the liver is suggestive of hepatic steatosis. No intrahepatic bile duct dilation. Gallbladder: Nonspecific borderline prominence of the gallbladder wall. No stones or sludge. Negative sonographic Montes's sign. Common bile duct: Unremarkable as visualized. No stones. No dilation. Normal common bile duct measuring 4.9 mm. Pancreas: Echogenic pancreas, not well evaluated on this exam. Right kidney: Atrophic right kidney measuring 6.0 cm in length. Increased echogenicity of the right renal parenchyma is suggestive of medical renal disease. Diffuse calcifications. No stones. No hydronephrosis. Aorta: Visualized portions of the abdominal aorta are grossly unremarkable. Inferior vena cava: Visualized portions of the IVC are grossly unremarkable. Free fluid: Small amount of ascites. IMPRESSION: 1. Hepatomegaly. Increased echogenicity of the liver is suggestive of hepatic steatosis. 2. Atrophic right kidney. Increased echogenicity of the right renal parenchyma is suggestive of medical renal disease. Diffuse calcifications. 3. Small amount of ascites. Electronically signed by: Sharron Douglas M.D. 06/05/22 21:31 PM
[2022-06-05] MEDS ORDERED: DEXTROSE 50% 50 ML SYRINGE IV ONE (21:44)
[2022-06-05] MEDS ORDERED: GLUCOSE 10 TAB/TUBE PO PRN ×2 (21:55→22:07)
[2022-06-05] MEDS ORDERED: CARBOHYDRATES FOR HYPOGLYCEMIA PO PRN ×2 (21:55→22:07)
[2022-06-05] MEDS ORDERED: GLUCOSE 40% GEL 15 GM TUBE PO PRN ×2 (21:55→22:07)
[2022-06-05] MEDS ORDERED: DEXTROSE 50% 50 ML SYRINGE IV PRN (21:55)
[2022-06-05] MEDS ORDERED: GLUCAGON FOR INJ 1 MG VIAL SQ PRN ×2 (21:55→22:07)
[2022-06-05] MEDS ORDERED: ONDANSETRON INJ 2 MG/ML 2 ML VIAL IV PRN (22:07)
[2022-06-05] MEDS ORDERED: LACTATED RINGER'S 500 ML IV ONE (22:07)
[2022-06-05] MEDS ORDERED: predniSONE 5 MG TAB PO SCH (22:07)
[2022-06-05] MEDS ORDERED: ACETAMINOPHEN 325 MG TAB PO PRN (22:07)
[2022-06-05] MEDS ORDERED: PHARMACY GLYCEMIC MGMT CONSULT PRN (22:07)
[2022-06-05 22:52] LABS: Base Excess VBG 2.2 mEq/L; HCO3 VBG 29 mmol/L; Oxygen Saturation VBG < 60.0 %; PCO2 VBG 54 mmHg (38-50); PO2 VBG 32 mmHg; pH VBG 7.34 (7.36-7.41)
[2022-06-05 23:09] LABS: C Reactive Protein 2.95 mg/dl (0-0.5)
[2022-06-05 23:27] LABS: INR 4.6 (0.9-1.1); Prothrombin Time 45.3 Seconds (9.0-12.0)
[2022-06-05] MEDS: DEXTROSE 50% 50 ML SYRINGE IV PRN (23:28)
[2022-06-05] MEDS ORDERED: DEXTROSE 5% 1,000 ML IV SCH (23:45)
[2022-06-05] MEDS: ATORVASTATIN 40 MG TAB PO SCH (23:46)
[2022-06-05] MEDS: PANTOprazole 40 MG TAB PO SCH (23:47)
[2022-06-05] MEDS: CLOPIDOGREL BISULFATE 75 MG TAB PO SCH (23:47)
[2022-06-05] MEDS: SERTRALINE HCL 100 MG TABLET PO SCH (23:48)
[2022-06-05] MEDS: PREGABALIN 75 MG CAP PO SCH (23:53)
[2022-06-06] MEDS ORDERED: INSULIN ASPART PER UNIT CHARGE SC SCH
[2022-06-06] MEDS: DEXTROSE 50% 50 ML SYRINGE IV PRN (00:50)
[2022-06-06] MEDS ORDERED: DEXTROSE 10% 1,000 ML IV SCH (01:00)
[2022-06-06] MEDS: INSULIN ASPART PER UNIT CHARGE SC SCH ×7 (02:04→20:51)
[2022-06-06] MEDS: PIPERACILLIN/TAZOBACTAM 3.375 GM in DEXTROSE 5% 100 ML IV SCH ×2 (02:38→12:57)
[2022-06-06] MEDS: rOPINIRole HCL 0.25 MG TABLET PO SCH ×2 (02:57→20:46)
[2022-06-06 03:53] LABS: Adenovirus F 40/41 PCR Not Detected (NotDetected); Astrovirus PCR Not Detected (NotDetected); Campylobacter PCR Not Detected (NotDetected); Cryptosporidium PCR Not Detected (NotDetected); Cyclospora cayetanensis PCR Not Detected (NotDetected); Entamoeba histolytica PCR Not Detected (NotDetected); Enteroaggregative E.coli(EAEC) Not Detected (NotDetected); Enteropathogenic E.coli (EPEC) Not Detected (NotDetected); Enterotoxigenic E.coli (ETEC) Not Detected (NotDetected); Giardia lamblia PCR Not Detected (NotDetected); Norovirus GI/GII PCR Not Detected (NotDetected); Plesiomonas shigelloides PCR Not Detected (NotDetected); Rotavirus A PCR Not Detected (NotDetected); Salmonella PCR Not Detected (NotDetected); Sapovirus PCR Not Detected (NotDetected); Shiga-like Toxin E.coli (STEC) Not Detected (NotDetected); Shigella/Enteroinvasive E.coli Not Detected (NotDetected); Vibrio cholerae PCR Not Detected (NotDetected); Vibrio species PCR Not Detected (NotDetected); Yersinia enterocolitica PCR Not Detected (NotDetected)
[2022-06-06 03:54] LABS: Cdiff Toxin B Gene (2yr or >) Positive Cdiff Gene (Neg)
[2022-06-06 04:16] LABS: Cdiff Antigen Positive; Cdiff Toxin A+B Negative Cdiff Toxin (Negative)
[2022-06-06] MEDS ORDERED: LANTUS PER UNIT CHARGE SQ ONE ×2 (06:00)
[2022-06-06 07:03] LABS: Hematocrit (blood only) 29.3 % (42.0-52.0); Hemoglobin 10.4 g/dl (14.0-18.0); Mean Corpuscular Hemoglobin 30.5 pg (25.0-34.0); Mean Corpuscular Hgb Conc 35.5 g/dL (32.0-36.0); Mean Corpuscular Volume 85.9 fL (80.0-100.0); Platelet Count 142 K/uL (130-400); RDW Coefficient of Variation 30.2 % (11.5-14.5); RDW Standard Deviation 91.3 fL (36.4-46.3); Red Blood Count 3.41 M/uL (4.70-6.10); White Blood Count 9.65 K/ul (4.8-10.8)
[2022-06-06 07:05] LABS: Albumin Level 3.4 gm/dl (3.4-5.0); BUN Creatinine Ratio 7.6 (10-20); Bilirubin Direct 6.3 mg/dl (0-0.2); Calcium 8.2 mg/dl (8.6-10.3); Creatinine Clr Calc Pharmacy 25.7 ml/min; Est GFR (African American) 27.5 ml/min; Est GFR (Non-African American) 23.7 ml/min; Potassium 4.5 mmol/L (3.5-5.1); Total Protein 6.5 gm/dl (6.0-8.3)
[2022-06-06 07:30] LABS: INR 4.2 (0.9-1.1); Prothrombin Time 41.6 Seconds (9.0-12.0)
--- NOTE | 2022-06-06 07:32 | Magnetic Resonance Report ---
MR ankle RT wo con CLINICAL HISTORY: ?heel osteo TECHNIQUE: Multisequence, multiplanar MR images of the right ankle were obtained without contrast.. COMPARISON: Comparison is made to right ankle radiograph 05/14/2022 FINDINGS: No evidence of acute fracture or a bony edema to suggest osteomyelitis. Tendons in the anterior and p osterior compartments of the leg are unremarkable. Degenerative changes are seen in the joints of the ankle with chondromalacia and a few foci of underlying bony edema for example in the anterior tibiot alar articulation. Mild soft tissue swelling is seen. IMPRESSION: 1. No evidence of osteomyelitis in the heel. Soft tissue swelling is seen which can be associated wi th cellulitis. 2. Degeneration of the joints of the ankle. ACT 112: Negative or not required by law. Electronically signed by: Javier Khan M.D. 06/06/2022 7:29 AM
--- NOTE | 2022-06-06 08:11 | Magnetic Resonance Report ---
Exam(s): MRI MRCP EXAM: MR Abdomen Without Intravenous Contrast, MRCP Protocol CLINICAL HISTORY: Reason for exam: elevated bilirubin. TECHNIQUE: Multiplanar magnetic resonance images of the abdomen without intravenous contrast using MRCP protocol. COMPARISON: Comparison made to prior liver ultrasound from June 05, 2022. FINDINGS: There is a left lower lobe consolidation with large pleural effusion. Tiny right pleural effusion. Moderate cardiomegaly. Bile ducts: Unremarkable. No stones. No ductal dilation. Gallbladder: Mildly distended. No stones. Liver: Hepatic steatosis with hepatomegaly. There is a small amount of ascites around the hepatic capsule. Pancreas: Unremarkable. No ductal dilation. Spleen: Unremarkable. No splenomegaly. Adrenals: Unremarkable. No mass. Kidneys and ureters: Severely hypoplastic or atrophic kidneys. Right pelvic renal transplant No hydronephrosis. Stomach and bowel: Unremarkable. No obstruction. IMPRESSION: The biliary tree is normal without evidence of dilation or filling defect. Findings concerning for hepatomegaly and hepatic steatosis. There is a small amount of ascites around the hepatic capsule. Left lower lobe consolidation with large pleural effusion. Tiny right pleural effusion. Severely hypoplastic or atrophic kidneys with right pelvic renal transplant. Moderate cardiomegaly. Electronically signed by: Piper Ayala MD 06/06/22 08:10 AM
[2022-06-06] MEDS ORDERED: PHYTONADIONE 5 MG TAB PO STA (08:23)
[2022-06-06 08:30] LABS: Estimated Average Glucose 134 mg/dl; Hemoglobin A1C 6.3 % (4.5-5.6)
[2022-06-06] MEDS: SEVELAMER HCL 800 MG TABLET PO SCH ×3 (08:36→17:09)
[2022-06-06] MEDS: EZETIMIBE 10 MG TABLET PO SCH (08:37)
[2022-06-06] MEDS: COLCHICINE 0.6 MG TAB PO SCH (08:37)
[2022-06-06] MEDS: TAMSULOSIN HCL 0.4 MG CAP PO SCH (08:37)
[2022-06-06] MEDS: MIDODRINE HCL 2.5 MG TAB PO SCH ×2 (08:37→12:53)
[2022-06-06] MEDS: PANTOprazole 40 MG TAB PO SCH ×2 (08:37→20:45)
[2022-06-06] MEDS: COLLAGENASE OINT 30 GM TUBE TOP SCH (08:47)
[2022-06-06] MEDS: HYDROCORTISONE SOD 25 MG in SYRINGE 0 ML IV SCH ×2 (08:47→15:58)
[2022-06-06] MEDS: PREGABALIN 75 MG CAP PO SCH ×2 (08:47→20:51)
[2022-06-06] MEDS ORDERED: rOPINIRole HCL 0.25 MG TABLET PO SCH (09:00)
--- NOTE | 2022-06-06 09:06 | Electrocardiogram Report ---
Test Reason : Blood Pressure : / mmHG Vent. Rate : 079 BPM Atrial Rate : 079 BPM P-R Int : 186 ms QRS Dur : 100 ms QT Int : 416 ms P-R-T Axes : 041 080 058 degrees QTc Int : 477 ms Normal sinus rhythm Left atrial enlargement Low voltage QRS Possible Old Anterolateral infarct Abnormal ECG When compared with ECG of 27-FEB-2022 15:37, No significant change Confirmed by Rubin Laird ([id number]) on 06/06/2022 9:06:02 AM Referred By: Luz Piña Confirmed By:Rubin Laird
[2022-06-06] MEDS ORDERED: INSULIN ASPART PER UNIT CHARGE ONE (09:30)
--- NOTE | 2022-06-06 12:18 | Gastrointestinal Consultation ---
Date of Consultation June 06, 2022 Assessment & Plan (1) Elevated bilirubin: No imaging evidence of biliary obstruction on MRCP. Moving forward, can obtain AMA, LIZZY, ASMA. Continue to trend the bilirubin, AST/ALT, alk phos, & INR. Note that INR is 4.2, however patient is anticoagulated on Coumadin. If primary team decides to pursue thoracentesis for large left sided pleural effusion, would ask that they obtain serum protein & albumin to gather more information regarding whether this may be liver or cardiac in origin as at present there are no obvious hepatobiliary sources of these lab abnormalities. Would consider repeat echocardiogram as well. Depending on clinical course, could also consider outp atient liver biopsy (may benefit from transjugular approach in order to determine portal pressure but also right sided heart pressures as well). Supervising Physician Co-Signing Physician Notes Agree with NOMI Hernadez as above Gen: Obvious jaundice, oriented x3 Abd: Soft, NT, ND, +BS Continue current therapy and supportive care Agree with outpatient Transjugular liver biopsy History of Present Illness Reason for Consultation: Elevated bilirubin Attending Physician: Hieu Meraz MD History of Present Illness Patient is a 46 yo male with PMH of ESRD on HD, DM1, lactose intolerance, HLD, diabetic foot ulcer, GERD, CAD s/p CABG, mitral regurgitation, DIANE, hyperparathyroidism, ischemic cardiomyopathy, pulmonary HTN, and chronic anti coagulation. The patient was noted to have an elevated total bilirubin on outpatient labs and was directed to the ED. He had an abdominal US & MRCP that did not indicate any biliary ductal abnormalities. Liver appeared mildly enlarged with steatosis & surrounding ascites. The patient was noted to have a large pleural effusion on MRCP. T Bili is 11 ( was 11.9), D bili is 6.3. Alk phos is elevated at 521, however AST & ALT are unremarkable. CRP is mildly elevated at 2.95. Troponin 29. BNP 2869. Procalcitonin 1.35. The patient is visibly jaundiced but denies abdominal pain. He notes chronic diarrhea x 1 month but notes he recently had a colonoscopy in [place] to evaluate this and it was unremarkable. No family history of liver disease. Recently was given Vancomycin as an outpatient, but denies other antibiotic use. No IVDA. No supplement use. Hep A, B, C negative when checked in May 2022. INR is notably elevated at 4.2. Allergies Allergy/AdvReac Type Severity Reaction Status Date / Time pork derived (porcine) Allergy Intermediate Hives with Verified 06/05/22 19:14 Pork Insulin lactose Allergy Mild Unknown Verified 06/05/22 19:14 sacubitril [From Entresto] AdvReac Severe Hypotension Verified 06/05/22 19:14 valsartan [From Entresto] AdvReac Severe Hypotension Verified 06/05/22 19:14 Home Medications Medication Instructions Recorded Confirmed Type clopidogrel 75 mg tablet (Plavix) 75 mg PO HS #30 tabs 03/20/21 06/05/22 Rx ropinirole 0.5 mg tablet 0.5 mg PO DAILY #90 tabs 04/26/21 06/05/22 Rx insulin syringe-needle U-100 0.5 #200 ea 05/29/21 06/05/22 Rx mL 29 gauge x 1/2" (BD Insulin Syringe) ezetimibe 10 mg tablet (Zetia) 10 mg PO DAILY 12/14/21 06/05/22 History ferrous sulfate 325 mg (65 mg 325 mg PO BID 12/14/21 06/05/22 History iron) tablet metoprolol succinate 25 mg 12.5 mg PO BID 12/14/21 06/05/22 History tablet,extended release 24 hr sevelamer carbonate 800 mg tablet 1,600 mg PO TID 12/14/21 06/05/22 History (Renvela) acetaminophen 325 mg tablet 650 mg PO Q6H PRN PAIN/FEVER 02/27/22 06/05/22 History (Tylenol) atorvastatin 80 mg tablet 40 mg PO HS 02/27/22 06/05/22 History calcitriol 0.5 mcg capsule 0.5 mcg PO Q OTHER DAY 02/27/22 06/05/22 History colchicine 0.6 mg tablet 0.3 mg PO DAILY 02/27/22 06/05/22 History ergocalciferol (vitamin D2) 1,250 1,250 mcg PO WK 02/27/22 06/05/22 History mcg (50,000 unit) capsule (Vitamin D2) lidocaine-prilocaine 2.5 %-2.5 % 1 applic topical DIRECTED PRN 02/27/22 06/05/22 History topical cream TO DIALYSIS ACCESS LINE losartan 25 mg tablet 25 mg PO DAILY 02/27/22 06/05/22 History potassium chloride 10 mEq 20 meq PO DAILY 02/27/22 06/05/22 History capsule,extended release warfarin 2 mg tablet 2 - 4 mg PO DIRECTED 02/27/22 06/05/22 History allopurinol 100 mg tablet 100 mg PO .3X WEEKLY 02/28/22 06/05/22 History darbepoetin sarah in polysorbat 200 200 mcg subcut DIRECTED 04/05/22 06/05/22 History mcg/mL in polysorbate injection pregabalin 75 mg capsule 75 mg PO BID #240 caps 04/08/22 06/05/22 Rx sertraline 100 mg tablet 100 mg PO HS #90 tabs 04/17/22 06/05/22 Rx Dexcom G6 Transmitter #1 ea 04/25/22 06/05/22 Rx (blood-glucose transmitter) Dexcom G6 Sensor (blood-glucose #9 ea 04/26/22 06/05/22 Rx sensor) omeprazole 20 mg capsule,delayed 20 mg PO BID 05/02/22 06/05/22 History release insulin aspart U-100 100 unit/mL 45 unit (0.45 mL) continuous 05/08/22 06/05/22 Rx subcutaneous solution (Novolog subcutaneous infusion CONTINOUS U-100 Insulin aspart) #30 mL tamsulosin 0.4 mg capsule 0.4 mg PO DAILY #90 caps 05/20/22 06/05/22 Rx collagenase clostridium histo. 250 1 applic topical DAILY 14 days #90 05/27/22 06/05/22 Rx unit/gram topical ointment (Santyl) grams prednisone 5 mg tablet 5 mg PO HS #90 tabs 05/30/22 06/05/22 Rx calcium carbonate 200 mg calcium 0 mg PO TIDM 06/05/22 06/05/22 History (500 mg) chewable tablet (Tums) furosemide 40 mg tablet (Lasix) 80 mg PO DAILY PRN .Wt gain 06/05/22 06/05/22 History midodrine 5 mg tablet 5 mg PO TIDM 06/05/22 06/05/22 History Patient History Medical History Acute respiratory failure with hypoxia AMI anterolateral wall 2016 Anemia Anxiety CAD (coronary artery disease) Chewing tobacco nicotine dependence CHF (congestive heart failure) Deep vein thrombosis Depression Diabetes mellitus type 1 INSULIN PUMP Diabetic peripheral neuropathy End-stage renal failure with renal transplant Fistula Fluid retention Gait abnormality Gout Grief reaction Hypoalbuminemia Inhibited sexual excitement Mitral regurgitation Non-ST elevation (NSTEMI) myocardial infarction DIANE (obstructive sleep apnea) Peripheral neuropathy Recurrent left pleural effusion RLS (restless legs syndrome) Sensory problems with limbs Sleep apnea CPAP STEMI (ST elevation myocardial infarction) Swelling of left hand Type 1 diabetes Vitamin D deficiency Warfarin anticoagulation Surgical History H/O eye surgery LEFT/RT LASER SURGERY History of below knee amputation LEFT REVISION (5 TOTAL) History of cardiac cath 2016 - [place] - [facility] - 2 STENTS - FOLLOWS W/ DR. JURADO History of heart artery stent 2015 (2 STENTS PLACED) AT [facility] History of right hip replacement 03/17/2019 [facility] History of total replacement of right hip Hx of BKA Kidney transplant recipient 2001 Kidney transplant recipient Status post left hip replacement Status post total hip replacement, left Family History Grandfather Family history of diabetes mellitus Other No family history of adverse response to anesthesia Social History Smoking Status: Never smoker Second Hand Exposure: No; Do You Dip or Chew Tobacco: No; Tobacco Cessation Education Requested by Patient: No Hx Alcohol Use: Yes Alcohol type: beer Alcohol Intake Frequency: 2-3 x/Week Hx Substance Use: No Preferred Language: Iranian Communication Ability: Impaired Communication Ability Comment: Stroke Media Law Faculty Member Required: No Beliefs That Will Affect Care: None marital status: Current Living Situation: Spouse current occupational status: employed current occupation: [employer] [place] How many Children do You have: 2 How many Children do You have Comment: 1 is Other Information That Helps Us Care for You: No Feels Safe at Home: Yes Safety Concerns: Feels Safe At This Time Assistive Devices: None Review of Systems Constitutional: no fever and no chills Respiratory: no cough and no dyspnea Cardiovascular: no chest pain Gastrointestinal: no abdominal pain Integumentary: no pruritus Physical Exam Constitutional: well developed Respiratory: normal respiratory effort Cardiovascular: Rate/Rhythm: regular rate Gastrointestinal (Abdomen): Inspection/Auscultation: abdomen normal to inspection Musculoskeletal: Head/Neck/Chest: normocephalic Skin: + jaundice Psychiatric: Orientation: alert and oriented x 3 Results & Data Vital Signs (Past 12 Hours) Vital Signs Temp Pulse Pulse Resp BP Pulse Ox O2 Del Method 06/06/22 11:00 36.7 C 74 18 121/68 96 Room Air 06/06/22 09:57 Room Air 06/06/22 08:38 36.5 C 66 18 111/61 97 Room Air 06/06/22 07:32 64 06/06/22 03:00 36.3 C L 67 18 106/61 99 Room Air 06/06/22 01:26 79 PG Care Time/CCT Total # of Minutes Spent Total Time Spent with Patient: Total time spent is greater than 50% in coordination of care (as documented) at patient's floor/unit and/or counseling patient: Coding Level of Care Code 96696 IN/OBS CONSULT LVL 4,60M Diagnoses Elevated bilirubin R17
--- NOTE | 2022-06-06 12:45 | Nephrology Consultation ---
Date of Consultation June 06, 2022 Assessment & Plan (1) ESRD on dialysis: ON IHD MWF at [facility]. Outpatient Rx 3.5hr F-180NR Qb 450 Qd 800 2K 2Ca Na 137 HCO3 35 EDW 66 kg. Last treatment yesterday. Constantine has been tolerating HD well. Volume status controlled. Electrolytes acceptable. Next HD planned for tomorrow. Medications appropriate for kidney function. Continue calcitriol as Rx. (2) Jaundice: GI consultation appreciated. Liver US and MRCP without evidence of obstruction. Screening for viral hepatitis negative. No transaminitis. (3) Diabetic foot ulcer: Followed by wound care. MRI reviewed. Presented with evidence of sepsis with elevated lactate. Unclear if this is a potential source of infection at this time. (4) Diarrhea: Stool studies pending. (5) Pleural effusion: Chronic, stable. Transudative by history. History of Present Illness Reason for Consultation: ESRD on HD Requesting Physician: Hieu Meraz MD Attending Physician: Hieu Meraz MD History of Present Illness Mr. 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 Constantine is maintained on hemodialysis at [facility] under my care. He dialyzes MWF. HD completed yesterday without complications. Rx 3.5hr F-180NR Qb 450 Qd 800 2K 2Ca Na 137 HCO3 35 EDW 66 kg. 2.9 L removed with his last treatment. Mr. Dalton's L RC AVF has thrombosed. R BC AVF was created 08/15/21 but requires transposition. He currently dialyzes via R IJ THC. Medical history is als notable for DIANE on CPAP therapy, RLS, B MIGUEL, hy perlipidemia, ASCVD s/p LAD stent 2015, robotic BA to LAD 11/22 at [facility], 12/22 BA occluded patient underwent BA atherectomy and stent x2 at [facility], and PVD s/p L BKA. In 2000 Mr. Dalton progressed to ESKD and was started on IHD. In 2001 he received a LRRT from his mother.He suffered an acute rejection episode 2002 that was managed w/ steroid therapy. Unfortunately he then suffered a slow progressive decline in kidney function. In 01/21, Mr. Dalton underwent L RC AVF creation and insertion of PD catheter. He started NCCPD 03/24. Unfortunately he did not tolerate peritoneal dialysis due to recurrent hyperglycemia and quickly transitioned to IHD.In June 2021, he presented to [facility] with chest pain. Cardiac catheterization revealed severe multivessel disease. Constantine was transferred to [facility] for CABG evaluation. Now s/p 1 v bypass with LAD stent. Following minithoracotomy, he developed a recurrent left sided pleural effusion. Last thoracentesis was in April. Constantine is following with wound care regarding 2 wounds on the right foot. He follows in the pulmonology clinic with Dr. Haley and cardiology with Dr. Jurado. He is followed by Dr. Terrazas in the ID clinic regarding the wounds on his feet. Following outpatient evaluations yesterday, he was referred for admission. Constantine was admitted with jaundice, low grade temperatures at home, and wounds on feet. He was resting comfortably in bed at the time of my assessment. He expressed frustration regarding hospitalization. His only complaint is chronic diarrhea. He has been experiencing frequent water bowel movements for the past several weeks. No melena or hematochezia. Constantine is following with GI. Allergies Allergy/AdvReac Type Severity Reaction Status Date / Time pork derived (porcine) Allergy Intermediate Hives with Verified 06/05/22 19:14 Pork Insulin lactose Allergy Mild Unknown Verified 06/05/22 19:14 sacubitril [From Entresto] AdvReac Severe Hypotension Verified 06/05/22 19:14 valsartan [From Entresto] AdvReac Severe Hypotension Verified 06/05/22 19:14 Home Medications Medication Instructions Recorded Confirmed Type clopidogrel 75 mg tablet (Plavix) 75 mg PO HS #30 tabs 03/20/21 06/05/22 Rx ropinirole 0.5 mg tablet 0.5 mg PO DAILY #90 tabs 04/26/21 06/05/22 Rx insulin syringe-needle U-100 0.5 #200 ea 05/29/21 06/05/22 Rx mL 29 gauge x 1/2" (BD Insulin Syringe) ezetimibe 10 mg tablet (Zetia) 10 mg PO DAILY 12/14/21 06/05/22 History ferrous sulfate 325 mg (65 mg 325 mg PO BID 12/14/21 06/05/22 History iron) tablet metoprolol succinate 25 mg 12.5 mg PO BID 12/14/21 06/05/22 History tablet,extended release 24 hr sevelamer carbonate 800 mg tablet 1,600 mg PO TID 12/14/21 06/05/22 History (Renvela) acetaminophen 325 mg tablet 650 mg PO Q6H PRN PAIN/FEVER 02/27/22 06/05/22 Hi story (Tylenol) atorvastatin 80 mg tablet 40 mg PO HS 02/27/22 06/05/22 History calcitriol 0.5 mcg capsule 0.5 mcg PO Q OTHER DAY 02/27/22 06/05/22 History colchicine 0.6 mg tablet 0.3 mg PO DAILY 02/27/22 06/05/22 History ergocalciferol (vitamin D2) 1,250 1,250 mcg PO WK 02/27/22 06/05/22 History mcg (50,000 unit) capsule (Vitamin D2) lidocaine-prilocaine 2.5 %-2.5 % 1 applic topical DIRECTED PRN 02/27/22 06/05/22 History topical cream TO DIALYSIS ACCESS LINE losartan 25 mg tablet 25 mg PO DAILY 02/27/22 06/05/22 History potassium chloride 10 mEq 20 meq PO DAILY 02/27/22 06/05/22 History capsule,extended release warfarin 2 mg tablet 2 - 4 mg PO DIRECTED 02/27/22 06/05/22 History allopurinol 100 mg tablet 100 mg PO .3X WEEKLY 02/28/22 06/05/22 History darbepoetin sarah in polysorbat 200 200 mcg subcut DIRECTED 04/05/22 06/05/22 History mcg/mL in polysorbate injection pregabalin 75 mg capsule 75 mg PO BID #240 caps 04/08/22 06/05/22 Rx sertraline 100 mg tablet 100 mg PO HS #90 tabs 04/17/22 06/05/22 Rx Dexcom G6 Transmitter #1 ea 04/25/22 06/05/22 Rx (blood-glucose transmitter) Dexcom G6 Sensor (blood-glucose #9 ea 04/26/22 06/05/22 Rx sensor) omeprazole 20 mg capsule,delayed 20 mg PO BID 05/02/22 06/05/22 History release insulin aspart U-100 100 unit/mL 45 unit (0.45 mL) continuous 05/08/22 06/05/22 Rx subcutaneous solution (Novolog subcutaneous infusion CONTINOUS U-100 Insulin aspart) #30 mL tamsulosin 0.4 mg capsule 0.4 mg PO DAILY #90 caps 05/20/22 06/05/22 Rx collagenase clostridium histo. 250 1 applic topical DAILY 14 days #90 05/27/22 06/05/22 Rx unit/gram topical ointment (Santyl) grams prednisone 5 mg tablet 5 mg PO HS #90 tabs 05/30/22 06/05/22 Rx calcium carbonate 200 mg calcium 0 mg PO TIDM 06/05/22 06/05/22 History (500 mg) chewable tablet (Tums) furosemide 40 mg tablet (Lasix) 80 mg PO DAILY PRN .Wt gain 06/05/22 06/05/22 History midodrine 5 mg tablet 5 mg PO TIDM 06/05/22 06/05/22 History Patient History Medical History Acute respiratory failure with hypoxia AMI anterolateral wall 2015 Anemia Anxiety CAD (coronary artery disease) Chewing tobacco nicotine dependence CHF (congestive heart failure) Deep vein thrombosis Depression Diabetes mellitus type 1 INSULIN PUMP Diabetic peripheral neuropathy End-stage renal failure with renal transplant Fistula Fluid retention Gait abnormality Gout Grief reaction Hypoalbuminemia Inhibited sexual excitement Mitral regurgitation Non-ST elevation (NSTEMI) myocardial infarction DIANE (obstructive sleep apnea) Peripheral neuropathy Recurrent left pleural effusion RLS (restless legs syndrome) Sensory problems with limbs Sleep apnea CPAP STEMI (ST elevation myocardial infarction) Swelling of left hand Type 1 diabetes Vitamin D deficiency Warfarin anticoagulation Surgical History H/O eye surgery LEFT/RT LASER SURGERY History of below knee amputation LEFT REVISION (5 TOTAL) History of cardiac cath 2016 - [place] - [facility] - 2 STENTS - FOLLOWS W/ DR. JURADO History of heart artery stent 2016 (2 STENTS PLACED) AT [facility] History of right hip replacement 03/17/2019 [facility] History of total replacement of right hip Hx of BKA Kidney transplant recipient 2001 Kidney transplant recipient Status post left hip replacement Status post total hip replacement, left Family History Grandfather Family history of diabetes mellitus Other No family history of adverse response to anesthesia Social History (Reviewed 04/06/23 @ 14:19 by GRAY Milner Smoking Status: Never smoker Second Hand Exposure: No; Do You Dip or Chew Tobacco: No; Tobacco Cessation Education Requested by Patient: No Hx Alcohol Use: Yes Alcohol type: beer Alcohol Intake Frequency: 2-3 x/Week Hx Substance Use: No Preferred Language: Mongolian Communication Ability: Impaired Communication Ability Comment: Stroke Reconciler Required: No Beliefs That Will Affect Care: None marital status: Current Living Situation: Spouse current occupational status: employed 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 [employer] [place] How many Children do You have: 2 How many Children do You have Comment: 1 is Other Information That Helps Us Care for You: No Feels Safe at Home: Yes Safety Concerns: Feels Safe At This Time Assistive Devices: None Review of Systems Review of Systems: All systems reviewed & are unremarkable except as noted in HPI & below Constitutional: + weight loss Gastrointestinal: + cramping and + diarrhea/loose stools; no nausea, no vomiting, no blood in stools and no melena Integumentary: + yellowing of the skin Physical Exam Constitutional: well developed; no acute distress Eyes: + scleral abnormality; sclerae not anicteric and no corneal abnormality ENMT: Mouth: + dry oral mucous membranes; no oral mucosal abnormality Neck: normal visual inspection, trachea midline and + thick neck Respiratory: normal respiratory effort Auscultation: lungs clear to auscultation bilaterally Cardiovascular: Rate/Rhythm: regular rate Heart Sounds: normal S1, normal S2 and + murmur Extremities: + pedal edema and + AV fistula Musculoskeletal: Extremities: no cyanosis and no clubbing Skin: normal turgor and + jaundice Neurologic: Motor/Sensory: no tremor and no asterixis Psychiatric: Orientation: alert and oriented x 3 Results & Data Vital Signs (Past 12 Hours) Vital Signs Temp Pulse Pulse Resp BP Pulse Ox O2 Del Method 06/06/22 11:00 36.7 C 74 18 121/68 96 Room Air 06/06/22 09:57 Room Air 06/06/22 08:38 36.5 C 66 18 111/61 97 Room Air 06/06/22 07:32 64 06/06/22 03:00 36.3 C L 67 18 106/61 99 Room Air 06/06/22 01:26 79 Laboratory Results Laboratory Results - last 24 hr 04/07/2306/05/22 06/05/22 02:21 02:21 17:55 WBC 6.15 RBC 2.91 L Hgb 8.8 L Hct 25.4 L MCV 87.3 MCH 30.2 MCHC 34.6 RDW Std Deviation 92.8 H RDW Coeff of Michelle 30.1 H Plt Count 134 Immature Gran % (Auto) 1.6 Neut % (Auto) 69.5 Lymph % (Auto) 14.1 [place] % (Auto) 8.5 Eos % (Auto) 5.5 Baso % (Auto) 0.8 Neut # (Auto) 4.27 Lymph # (Auto) 0.87 L [place] # (Auto) 0.52 Eos # (Auto) 0.34 Baso # (Auto) 0.05 Immature Gran # (Auto) 0.10 Polychromasia 1+ Target Cells 2+ ESR PT INR VBG pH VBG pCO2 VBG pO2 VBG HCO3 VBG O2 Saturation VBG Base Excess Sodium Potassium Chloride Carbon Dioxide Anion Gap BUN Creatinine Est Cr Clr Drug Dosing Est GFR ( Amer) Est GFR (Non-Af Amer) BUN/Creatinine Ratio Glucose POC Glucose Estimat Average Glucose Hemoglobin A1c Lactate Calcium Magnesium Total Bilirubin Direct Bilirubin AST ALT Alkaline Phosphatase Troponin I High Sens C-Reactive Protein B-Natriuretic Peptide Total Protein Albumin Globulin Albumin/Globulin Ratio Lipase Procalcitonin Stl C. cayetanensis PCR Not Detected Stool Rotavirus A PCR Not Detected Stl Adenov F 40/41 PCR Not Detected Stool Astrovirus (PCR) Not Detected Stool Campylobacter PCR Not Detected Stl C. diff Tox B Gene Positive Cdiff Gene H Stl C.difficile Tox A&B Negative Cdiff Toxin Stool Cryptosporidium PCR Not Detected Stl E.coli Shiga Tox PCR Not Detected Stl Enterotoxigenic E PCR Not Detected Stool EPEC (PCR) Not Detected Stool EAEC (PCR) Not Detected Stl E. histolytica PCR Not Detected Stool Giardia Lamblia PCR Not Detected Stool Salmonella PCR Not Detected Stool Sapovirus (PCR) Not Detected Stl P. shigelloides PCR Not Detected Stl Shigella/EIEC PCR Not Detected St Y.enterocolitica PCR Not Detected Stool Vibrio (PCR) Not Detected Stl Vibrio cholerae PCR Not Detected Stl Norovirus GI/GII PCR Not Detected Adenovirus (PCR) B. pertussis DNA (PCR) B.parapertussis DNA PCR C. pneumoniae DNA (PCR) Coronavirus OC43 (PCR) Coronavirus HKU1 (PCR) Coronavirus 229E (PCR) SARS-CoV-2 (PCR) Coronavirus NL63 (PCR) Human Metapneumovir PCR Influenza Type A (PCR) Influenza Type B (PCR) M. pneumoniae (PCR) Parainfluenza 1 (PCR) Parainfluenza 2 (PCR) Parainfluenza 3 (PCR) Parainfluenza 4 (PCR) RSV (PCR) Entero/Rhino (PCR) 06/05/22 06/05/22 06/05/22 17:55 17:55 17:55 WBC RBC Hgb Hct MCV MCH MCHC RDW Std Deviation RDW Coeff of Michelle Plt Count Immature Gran % (Auto) Neut % (Auto) Lymph % (Auto) [place] % (Auto) Eos % (Auto) Baso % (Auto) Neut # (Auto) Lymph # (Auto) [place] # (Auto) Eos # (Auto) Baso # (Auto) Immature Gran # (Auto) Polychromasia Target Cells ESR PT INR VBG pH VBG pCO2 VBG pO2 VBG HCO3 VBG O2 Saturation VBG Base Excess Sodium 134 L Potassium 3.3 L Chloride 94 L Carbon Dioxide 23 Anion Gap 17 H BUN 21 Creatinine 2.68 H Est Cr Clr Drug Dosing Not Reportable Est GFR ( Amer) 31.6 Est GFR (Non-Af Amer) 27.3 BUN/Creatinine Ratio 7.8 L Glucose 378 H* POC Glucose Estimat Average Glucose Hemoglobin A1c Lactate 7.1 H* Calcium 8.1 L Magnesium 2.1 Total Bilirubin 10.1 H Direct Bilirubin TNP AST 32 ALT 19 Alkaline Phosphatase 504 H Troponin I High Sens 26.3 H C-Reactive Protein B-Natriuretic Peptide 2869 H Total Protein 6.1 Albumin 3.2 L Globulin 2.9 Albumin/Globulin Ratio 1.1 Lipase 7 L Procalcitonin Stl C. cayetanensis PCR Stool Rotavirus A PCR Stl Adenov F 40/41 PCR Stool Astrovirus (PCR) Stool Campylobacter PCR Stl C. diff Tox B Gene Stl C.difficile Tox A&B Stool Cryptosporidium PCR Stl E.coli Shiga Tox PCR Stl Enterotoxigenic E PCR Stool EPEC (PCR) Stool EAEC (PCR) Stl E. histolytica PCR Stool Giardia Lamblia PCR Stool Salmonella PCR Stool Sapovirus (PCR) Stl P. shigelloides PCR Stl Shigella/EIEC PCR St Y.enterocolitica PCR Stool Vibrio (PCR) Stl Vibrio cholerae PCR Stl Norovirus GI/GII PCR Adenovirus (PCR) B. pertussis DNA (PCR) B.parapertussis DNA PCR C. pneumoniae DNA (PCR) Coronavirus OC43 (PCR) Coronavirus HKU1 (PCR) Coronavirus 229E (PCR) SARS-CoV-2 (PCR) Coronavirus NL63 (PCR) Human Metapneumovir PCR Influenza Type A (PCR) Influenza Type B (PCR) M. pneumoniae (PCR) Parainfluenza 1 (PCR) Parainfluenza 2 (PCR) Parainfluenza 3 (PCR) Parainfluenza 4 (PCR) RSV (PCR) Entero/Rhino (PCR) 06/05/22 06/05/22 06/05/22 17:55 19:37 19:55 WBC RBC Hgb Hct MCV MCH MCHC RDW Std Deviation RDW Coeff of Michelle Plt Count Immature Gran % (Auto) Neut % (Auto) Lymph % (Auto) [place] % (Auto) Eos % (Auto) Baso % (Auto) Neut # (Auto) Lymph # (Auto) [place] # (Auto) Eos # (Auto) Baso # (Auto) Immature Gran # (Auto) Polychromasia Target Cells ESR PT INR VBG pH VBG pCO2 VBG pO2 VBG HCO3 VBG O2 Saturation VBG Base Excess Sodium Potassium Chloride Carbon Dioxide Anion Gap BUN Creatinine Est Cr Clr Drug Dosing Est GFR ( Amer) Est GFR (Non-Af Amer) BUN/Creatinine Ratio Glucose POC Glucose Estimat Average Glucose Hemoglobin A1c Lactate 4.2 H* Calcium Magnesium Total Bilirubin Direct Bilirubin AST ALT Alkaline Phosphatase Troponin I High Sens C-Reactive Protein B-Natriuretic Peptide Total Protein Albumin Globulin Albumin/Globulin Ratio Lipase Procalcitonin 1.35 H Stl C. cayetanensis PCR Stool Rotavirus A PCR Stl Adenov F 40/41 PCR Stool Astrovirus (PCR) Stool Campylobacter PCR Stl C. diff Tox B Gene Stl C.difficile Tox A&B Stool Cryptosporidium PCR Stl E.coli Shiga Tox PCR Stl Enterotoxigenic E PCR Stool EPEC (PCR) Stool EAEC (PCR) Stl E. histolytica PCR Stool Giardia Lamblia PCR Stool Salmonella PCR Stool Sapovirus (PCR) Stl P. shigelloides PCR Stl Shigella/EIEC PCR St Y.enterocolitica PCR Stool Vibrio (PCR) Stl Vibrio cholerae PCR Stl Norovirus GI/GII PCR Adenovirus (PCR) Not Detected B. pertussis DNA (PCR) Not Detected B.parapertussis DNA PCR Not Detected C. pneumoniae DNA (PCR) Not Detected Coronavirus OC43 (PCR) Not Detected Coronavirus HKU1 (PCR) Not Detected Coronavirus 229E (PCR) Not Detected SARS-CoV-2 (PCR) Not Detected Coronavirus NL63 (PCR) Not Detected Human Metapneumovir PCR Not Detected Influenza Type A (PCR) Not Detected Influenza Type B (PCR) Not Detected M. pneumoniae (PCR) Not Detected Parainfluenza 1 (PCR) Not Detected Parainfluenza 2 (PCR) Not Detected Parainfluenza 3 (PCR) Not Detected Parainfluenza 4 (PCR) Not Detected RSV (PCR) Not Detected Entero/Rhino (PCR) Not Detected 06/05/22 06/05/22 06/05/22 21:47 21:48 22:02 WBC RBC Hgb Hct MCV MCH MCHC RDW Std Deviation RDW Coeff of Michelle Plt Count Immature Gran % (Auto) Neut % (Auto) Lymph % (Auto) [place] % (Auto) Eos % (Auto) Baso % (Auto) Neut # (Auto) Lymph # (Auto) [place] # (Auto) Eos # (Auto) Baso # (Auto) Immature Gran # (Auto) Polychromasia Target Cells ESR PT INR VBG pH VBG pCO2 VBG pO2 VBG HCO3 VBG O2 Saturation VBG Base Excess Sodium Potassium Chloride Carbon Dioxide Anion Gap BUN Creatinine Est Cr Clr Drug Dosing Est GFR ( Amer) Est GFR (Non-Af Amer) BUN/Creatinine Ratio Glucose POC Glucose 363 H* 219 H 90 Estimat Average Glucose Hemoglobin A1c Lactate Calcium Magnesium Total Bilirubin Direct Bilirubin AST ALT Alkaline Phosphatase Troponin I High Sens C-Reactive Protein B-Natriuretic Peptide Total Protein Albumin Globulin Albumin/Globulin Ratio Lipase Procalcitonin Stl C. cayetanensis PCR Stool Rotavirus A PCR Stl Adenov F 40/41 PCR Stool Astrovirus (PCR) Stool Campylobacter PCR Stl C. diff Tox B Gene Stl C.difficile Tox A&B Stool Cryptosporidium PCR Stl E.coli Shiga Tox PCR Stl Enterotoxigenic E PCR Stool EPEC (PCR) Stool EAEC (PCR) Stl E. histolytica PCR Stool Giardia Lamblia PCR Stool Salmonella PCR Stool Sapovirus (PCR) Stl P. shigelloides PCR Stl Shigella/EIEC PCR St Y.enterocolitica PCR Stool Vibrio (PCR) Stl Vibrio cholerae PCR Stl Norovirus GI/GII PCR Adenovirus (PCR) B. pertussis DNA (PCR) B.parapertussis DNA PCR C. pneumoniae DNA (PCR) Coronavirus OC43 (PCR) Coronavirus HKU1 (PCR) Coronavirus 229E (PCR) SARS-CoV-2 (PCR) Coronavirus NL63 (PCR) Human Metapneumovir PCR Influenza Type A (PCR) Influenza Type B (PCR) M. pneumoniae (PCR) Parainfluenza 1 (PCR) Parainfluenza 2 (PCR) Parainfluenza 3 (PCR) Parainfluenza 4 (PCR) RSV (PCR) Entero/Rhino (PCR) 06/05/22 06/05/22 06/05/22 22:32 22:32 22:32 WBC RBC Hgb Hct MCV MCH MCHC RDW Std Deviation RDW Coeff of Michelle Plt Count Immature Gran % (Auto) Neut % (Auto) Lymph % (Auto) [place] % (Auto) Eos % (Auto) Baso % (Auto) Neut # (Auto) Lymph # (Auto) [place] # (Auto) Eos # (Auto) Baso # (Auto) Immature Gran # (Auto) Polychromasia Target Cells ESR 27 H PT 45.3 H INR 4.6 H VBG pH VBG pCO2 VBG pO2 VBG HCO3 VBG O2 Saturation VBG Base Excess Sodium Potassium Chloride Carbon Dioxide Anion Gap BUN Creatinine Est Cr Clr Drug Dosing Est GFR ( Amer) Est GFR (Non-Af Amer) BUN/Creatinine Ratio Glucose POC Glucose Estimat Average Glucose Hemoglobin A1c Lactate 2.9 H* Calcium Magnesium Total Bilirubin Direct Bilirubin AST ALT Alkaline Phosphatase Troponin I High Sens C-Reactive Protein B-Natriuretic Peptide Total Protein Albumin Globulin Albumin/Globulin Ratio Lipase Procalcitonin Stl C. cayetanensis PCR Stool Rotavirus A PCR Stl Adenov F 40/41 PCR Stool Astrovirus (PCR) Stool Campylobacter PCR Stl C. diff Tox B Gene Stl C.difficile Tox A&B Stool Cryptosporidium PCR Stl E.coli Shiga Tox PCR Stl Enterotoxigenic E PCR Stool EPEC (PCR) Stool EAEC (PCR) Stl E. histolytica PCR Stool Giardia Lamblia PCR Stool Salmonella PCR Stool Sapovirus (PCR) Stl P. shigelloides PCR Stl Shigella/EIEC PCR St Y.enterocolitica PCR Stool Vibrio (PCR) Stl Vibrio cholerae PCR Stl Norovirus GI/GII PCR Adenovirus (PCR) B. pertussis DNA (PCR) B.parapertussis DNA PCR C. pneumoniae DNA (PCR) Coronavirus OC43 (PCR) Coronavirus HKU1 (PCR) Coronavirus 229E (PCR) SARS-CoV-2 (PCR) Coronavirus NL63 (PCR) Human Metapneumovir PCR Influenza Type A (PCR) Influenza Type B (PCR) M. pneumoniae (PCR) Parainfluenza 1 (PCR) Parainfluenza 2 (PCR) Parainfluenza 3 (PCR) Parainfluenza 4 (PCR) RSV (PCR) Entero/Rhino (PCR) 06/05/22 06/05/22 06/05/22 22:32 22:32 23:26 WBC RBC Hgb Hct MCV MCH MCHC RDW Std Deviation RDW Coeff of Michelle Plt Count Immature Gran % (Auto) Neut % (Auto) Lymph % (Auto) [place] % (Auto) Eos % (Auto) Baso % (Auto) Neut # (Auto) Lymph # (Auto) [place] # (Auto) Eos # (Auto) Baso # (Auto) Immature Gran # (Auto) Polychromasia Target Cells ESR PT INR VBG pH 7.34 L VBG pCO2 54 H VBG pO2 32 VBG HCO3 29 VBG O2 Saturation < 60.0 VBG Base Excess 2.2 Sodium Potassium Chloride Carbon Dioxide Anion Gap BUN Creatinine Est Cr Clr Drug Dosing Est GFR ( Amer) Est GFR (Non-Af Amer) BUN/Creatinine Ratio Glucose POC Glucose 30 L* Estimat Average Glucose Hemoglobin A1c Lactate Calcium Magnesium Total Bilirubin Direct Bilirubin AST ALT Alkaline Phosphatase Troponin I High Sens 29.0 H C-Reactive Protein 2.95 H B-Natriuretic Peptide Total Protein Albumin Globulin Albumin/Globulin Ratio Lipase Procalcitonin Stl C. cayetanensis PCR Stool Rotavirus A PCR Stl Adenov F 40/41 PCR Stool Astrovirus (PCR) Stool Campylobacter PCR Stl C. diff Tox B Gene Stl C.difficile Tox A&B Stool Cryptosporidium PCR Stl E.coli Shiga Tox PCR Stl Enterotoxigenic E PCR Stool EPEC (PCR) Stool EAEC (PCR) Stl E. histolytica PCR Stool Giardia Lamblia PCR Stool Salmonella PCR Stool Sapovirus (PCR) Stl P. shigelloides PCR Stl Shigella/EIEC PCR St Y.enterocolitica PCR Stool Vibrio (PCR) Stl Vibrio cholerae PCR Stl Norovirus GI/GII PCR Adenovirus (PCR) B. pertussis DNA (PCR) B.parapertussis DNA PCR C. pneumoniae DNA (PCR) Coronavirus OC43 (PCR) Coronavirus HKU1 (PCR) Coronavirus 229E (PCR) SARS-CoV-2 (PCR) Coronavirus NL63 (PCR) Human Metapneumovir PCR Influenza Type A (PCR) Influenza Type B (PCR) M. pneumoniae (PCR) Parainfluenza 1 (PCR) Parainfluenza 2 (PCR) Parainfluenza 3 (PCR) Parainfluenza 4 (PCR) RSV (PCR) Entero/Rhino (PCR) 06/05/22 06/06/22 06/06/22 23:43 00:45 01:06 WBC RBC Hgb Hct MCV MCH MCHC RDW Std Deviation RDW Coeff of Michelle Plt Count Immature Gran % (Auto) Neut % (Auto) Lymph % (Auto) [place] % (Auto) Eos % (Auto) Baso % (Auto) Neut # (Auto) Lymph # (Auto) [place] # (Auto) Eos # (Auto) Baso # (Auto) Immature Gran # (Auto) Polychromasia Target Cells ESR PT INR VBG pH VBG pCO2 VBG pO2 VBG HCO3 VBG O2 Saturation VBG Base Excess Sodium Potassium Chloride Carbon Dioxide Anion Gap BUN Creatinine Est Cr Clr Drug Dosing Est GFR ( Amer) Est GFR (Non-Af Amer) BUN/Creatinine Ratio Glucose POC Glucose 113 H 36 L* 135 H Estimat Average Glucose Hemoglobin A1c Lactate Calcium Magnesium Total Bilirubin Direct Bilirubin AST ALT Alkaline Phosphatase Troponin I High Sens C-Reactive Protein B-Natriuretic Peptide Total Protein Albumin Globulin Albumin/Globulin Ratio Lipase Procalcitonin Stl C. cayetanensis PCR Stool Rotavirus A PCR Stl Adenov F 40/41 PCR Stool Astrovirus (PCR) Stool Campylobacter PCR Stl C. diff Tox B Gene Stl C.difficile Tox A&B Stool Cryptosporidium PCR Stl E.coli Shiga Tox PCR Stl Enterotoxigenic E PCR Stool EPEC (PCR) Stool EAEC (PCR) Stl E. histolytica PCR Stool Giardia Lamblia PCR Stool Salmonella PCR Stool Sapovirus (PCR) Stl P. shigelloides PCR Stl Shigella/EIEC PCR St Y.enterocolitica PCR Stool Vibrio (PCR) Stl Vibrio cholerae PCR Stl Norovirus GI/GII PCR Adenovirus (PCR) B. pertussis DNA (PCR) B.parapertussis DNA PCR C. pneumoniae DNA (PCR) Coronavirus OC43 (PCR) Coronavirus HKU1 (PCR) Coronavirus 229E (PCR) SARS-CoV-2 (PCR) Coronavirus NL63 (PCR) Human Metapneumovir PCR Influenza Type A (PCR) Influenza Type B (PCR) M. pneumoniae (PCR) Parainfluenza 1 (PCR) Parainfluenza 2 (PCR) Parainfluenza 3 (PCR) Parainfluenza 4 (PCR) RSV (PCR) Entero/Rhino (PCR) 06/06/22 06/06/22 06/06/22 02:02 02:25 03:00 WBC RBC Hgb Hct MCV MCH MCHC RDW Std Deviation RDW Coeff of Michelle Plt Count Immature Gran % (Auto) Neut % (Auto) Lymph % (Auto) [place] % (Auto) Eos % (Auto) Baso % (Auto) Neut # (Auto) Lymph # (Auto) [place] # (Auto) Eos # (Auto) Baso # (Auto) Immature Gran # (Auto) Polychromasia Target Cells ESR PT INR VBG pH VBG pCO2 VBG pO2 VBG HCO3 VBG O2 Saturation VBG Base Excess Sodium Potassium Chloride Carbon Dioxide Anion Gap BUN Creatinine Est Cr Clr Drug Dosing Est GFR ( Amer) Est GFR (Non-Af Amer) BUN/Creatinine Ratio Glucose POC Glucose 85 85 111 H Estimat Average Glucose Hemoglobin A1c Lactate Calcium Magnesium Total Bilirubin Direct Bilirubin AST ALT Alkaline Phosphatase Troponin I High Sens C-Reactive Protein B-Natriuretic Peptide Total Protein Albumin Globulin Albumin/Globulin Ratio Lipase Procalcitonin Stl C. cayetanensis PCR Stool Rotavirus A PCR Stl Adenov F 40/41 PCR Stool Astrovirus (PCR) Stool Campylobacter PCR Stl C. diff Tox B Gene Stl C.difficile Tox A&B Stool Cryptosporidium PCR Stl E.coli Shiga Tox PCR Stl Enterotoxigenic E PCR Stool EPEC (PCR) Stool EAEC (PCR) Stl E. histolytica PCR Stool Giardia Lamblia PCR Stool Salmonella PCR Stool Sapovirus (PCR) Stl P. shigelloides PCR Stl Shigella/EIEC PCR St Y.enterocolitica PCR Stool Vibrio (PCR) Stl Vibrio cholerae PCR Stl Norovirus GI/GII PCR Adenovirus (PCR) B. pertussis DNA (PCR) B.parapertussis DNA PCR C. pneumoniae DNA (PCR) Coronavirus OC43 (PCR) Coronavirus HKU1 (PCR) Coronavirus 229E (PCR) SARS-CoV-2 (PCR) Coronavirus NL63 (PCR) Human Metapneumovir PCR Influenza Type A (PCR) Influenza Type B (PCR) M. pneumoniae (PCR) Parainfluenza 1 (PCR) Parainfluenza 2 (PCR) Parainfluenza 3 (PCR) Parainfluenza 4 (PCR) RSV (PCR) Entero/Rhino (PCR) 06/06/22 06/06/22 06/06/22 03:56 05:29 05:44 WBC 9.65 RBC 3.41 L Hgb 10.4 L Hct 29.3 L MCV 85.9 MCH 30.5 MCHC 35.5 RDW Std Deviation 91.3 H RDW Coeff of Michelle 30.2 H Plt Count 142 Immature Gran % (Auto) Neut % (Auto) Lymph % (Auto) [place] % (Auto) Eos % (Auto) Baso % (Auto) Neut # (Auto) Lymph # (Auto) [place] # (Auto) Eos # (Auto) Baso # (Auto) Immature Gran # (Auto) Polychromasia Target Cells ESR PT INR VBG pH VBG pCO2 VBG pO2 VBG HCO3 VBG O2 Saturation VBG Base Excess Sodium Potassium Chloride Carbon Dioxide Anion Gap BUN Creatinine Est Cr Clr Drug Dosing Est GFR ( Amer) Est GFR (Non-Af Amer) BUN/Creatinine Ratio Glucose POC Glucose 139 H 200 H Estimat Average Glucose Hemoglobin A1c Lactate Calcium Magnesium Total Bilirubin Direct Bilirubin AST ALT Alkaline Phosphatase Troponin I High Sens C-Reactive Protein B-Natriuretic Peptide Total Protein Albumin Globulin Albumin/Globulin Ratio Lipase Procalcitonin Stl C. cayetanensis PCR Stool Rotavirus A PCR Stl Adenov F 40 PCR Stool Astrovirus (PCR) Stool Campylobacter PCR Stl C. diff Tox B Gene Stl C.difficile Tox A&B Stool Cryptosporidium PCR Stl E.coli Shiga Tox PCR Stl Enterotoxigenic E PCR Stool EPEC (PCR) Stool EAEC (PCR) Stl E. histolytica PCR Stool Giardia Lamblia PCR Stool Salmonella PCR Stool Sapovirus (PCR) Stl P. shigelloides PCR Stl Shigella/EIEC PCR St Y.enterocolitica PCR Stool Vibrio (PCR) Stl Vibrio cholerae PCR Stl Norovirus GI/GII PCR Adenovirus (PCR) B. pertussis DNA (PCR) B.parapertussis DNA PCR C. pneumoniae DNA (PCR) Coronavirus OC43 (PCR) Coronavirus HKU1 (PCR) Coronavirus 229E (PCR) SARS-CoV-2 (PCR) Coronavirus NL63 (PCR) Human Metapneumovir PCR Influenza Type A (PCR) Influenza Type B (PCR) M. pneumoniae (PCR) Parainfluenza 1 (PCR) Parainfluenza 2 (PCR) Parainfluenza 3 (PCR) Parainfluenza 4 (PCR) RSV (PCR) Entero/Rhino (PCR) 06/06/22 06/06/22 06/06/22 05:44 05:44 05:44 WBC RBC Hgb Hct MCV MCH MCHC RDW Std Deviation RDW Coeff of Michelle Plt Count Immature Gran % (Auto) Neut % (Auto) Lymph % (Auto) [place] % (Auto) Eos % (Auto) Baso % (Auto) Neut # (Auto) Lymph # (Auto) [place] # (Auto) Eos # (Auto) Baso # (Auto) Immature Gran # (Auto) Polychromasia Target Cells ESR PT 41.6 H INR 4.2 H VBG pH VBG pCO2 VBG pO2 VBG HCO3 VBG O2 Saturation VBG Base Excess Sodium 130 L Potassium 4.5 D Chloride 92 L Carbon Dioxide 26 Anion Gap 12 H BUN 23 Creatinine 3.01 H D Est Cr Clr Drug Dosing 25.7 Est GFR ( Amer) 27.5 Est GFR (Non-Af Amer) 23.7 BUN/Creatinine Ratio 7.6 L Glucose 203 H POC Glucose Estimat Average Glucose 134 Hemoglobin A1c 6.3 H Lactate Calcium 8.2 L Magnesium Total Bilirubin 11.0 H Direct Bilirubin 6.3 H AST 31 ALT 19 Alkaline Phosphatase 521 H Troponin I High Sens C-Reactive Protein B-Natriuretic Peptide Total Protein 6.5 Albumin 3.4 Globulin Albumin/Globulin Ratio Lipase Procalcitonin Stl C. cayetanensis PCR Stool Rotavirus A PCR Stl Adenov F 40/ PCR Stool Astrovirus (PCR) Stool Campylobacter PCR Stl C. diff Tox B Gene Stl C.difficile Tox A&B Stool Cryptosporidium PCR Stl E.coli Shiga Tox PCR Stl Enterotoxigenic E PCR Stool EPEC (PCR) Stool EAEC (PCR) Stl E. histolytica PCR Stool Giardia Lamblia PCR Stool Salmonella PCR Stool Sapovirus (PCR) Stl P. shigelloides PCR Stl Shigella/EIEC PCR St Y.enterocolitica PCR Stool Vibrio (PCR) Stl Vibrio cholerae PCR Stl Norovirus GI/GII PCR Adenovirus (PCR) B. pertussis DNA (PCR) B.parapertussis DNA PCR C. pneumoniae DNA (PCR) Coronavirus OC43 (PCR) Coronavirus HKU1 (PCR) Coronavirus 229E (PCR) SARS-CoV-2 (PCR) Coronavirus NL63 (PCR) Human Metapneumovir PCR Influenza Type A (PCR) Influenza Type B (PCR) M. pneumoniae (PCR) Parainfluenza 1 (PCR) Parainfluenza 2 (PCR) Parainfluenza 3 (PCR) Parainfluenza 4 (PCR) RSV (PCR) Entero/Rhino (PCR) 06/06/22 06/06/22 06/06/22 06:14 07:05 08:10 WBC RBC Hgb Hct MCV MCH MCHC RDW Std Deviation RDW Coeff of Michelle Plt Count Immature Gran % (Auto) Neut % (Auto) Lymph % (Auto) [place] % (Auto) Eos % (Auto) Baso % (Auto) Neut # (Auto) Lymph # (Auto) [place] # (Auto) Eos # (Auto) Baso # (Auto) Immature Gran # (Auto) Polychromasia Target Cells ESR PT INR VBG pH VBG pCO2 VBG pO2 VBG HCO3 VBG O2 Saturation VBG Base Excess Sodium Potassium Chloride Carbon Dioxide Anion Gap BUN Creatinine Est Cr Clr Drug Dosing Est GFR ( Amer) Est GFR (Non-Af Amer) BUN/Creatinine Ratio Glucose POC Glucose 245 H 259 H 255 H Estimat Average Glucose Hemoglobin A1c Lactate Calcium Magnesium Total Bilirubin Direct Bilirubin AST ALT Alkaline Phosphatase Troponin I High Sens C-Reactive Protein B-Natriuretic Peptide Total Protein Albumin Globulin Albumin/Globulin Ratio Lipase Procalcitonin Stl C. cayetanensis PCR Stool Rotavirus A PCR Stl Adenov F PCR Stool Astrovirus (PCR) Stool Campylobacter PCR Stl C. diff Tox B Gene Stl C.difficile Tox A&B Stool Cryptosporidium PCR Stl E.coli Shiga Tox PCR Stl Enterotoxigenic E PCR Stool EPEC (PCR) Stool EAEC (PCR) Stl E. histolytica PCR Stool Giardia Lamblia PCR Stool Salmonella PCR Stool Sapovirus (PCR) Stl P. shigelloides PCR Stl Shigella/EIEC PCR St Y.enterocolitica PCR Stool Vibrio (PCR) Stl Vibrio cholerae PCR Stl Norovirus GI/GII PCR Adenovirus (PCR) B. pertussis DNA (PCR) B.parapertussis DNA PCR C. pneumoniae DNA (PCR) Coronavirus OC43 (PCR) Coronavirus HKU1 (PCR) Coronavirus 229E (PCR) SARS-CoV-2 (PCR) Coronavirus NL63 (PCR) Human Metapneumovir PCR Influenza Type A (PCR) Influenza Type B (PCR) M. pneumoniae (PCR) Parainfluenza 1 (PCR) Parainfluenza 2 (PCR) Parainfluenza 3 (PCR) Parainfluenza 4 (PCR) RSV (PCR) Entero/Rhino (PCR) 06/06/22 11:38 WBC RBC Hgb Hct MCV MCH MCHC RDW Std Deviation RDW Coeff of Michelle Plt Count Immature Gran % (Auto) Neut % (Auto) Lymph % (Auto) [place] % (Auto) Eos % (Auto) Baso % (Auto) Neut # (Auto) Lymph # (Auto) [place] # (Auto) Eos # (Auto) Baso # (Auto) Immature Gran # (Auto) Polychromasia Target Cells ESR PT INR VBG pH VBG pCO2 VBG pO2 VBG HCO3 VBG O2 Saturation VBG Base Excess Sodium Potassium Chloride Carbon Dioxide Anion Gap BUN Creatinine Est Cr Clr Drug Dosing Est GFR ( Amer) Est GFR (Non-Af Amer) BUN/Creatinine Ratio Glucose POC Glucose 148 H Estimat Average Glucose Hemoglobin A1c Lactate Calcium Magnesium Total Bilirubin Direct Bilirubin AST ALT Alkaline Phosphatase Troponin I High Sens C-Reactive Protein B-Natriuretic Peptide Total Protein Albumin Globulin Albumin/Globulin Ratio Lipase Procalcitonin Stl C. cayetanensis PCR Stool Rotavirus A PCR Stl Adenov F 40/41 PCR Stool Astrovirus (PCR) Stool Campylobacter PCR Stl C. diff Tox B Gene Stl C.difficile Tox A&B Stool Cryptosporidium PCR Stl E.coli Shiga Tox PCR Stl Enterotoxigenic E PCR Stool EPEC (PCR) Stool EAEC (PCR) Stl E. histolytica PCR Stool Giardia Lamblia PCR Stool Salmonella PCR Stool Sapovirus (PCR) Stl P. shigelloides PCR Stl Shigella/EIEC PCR St Y.enterocolitica PCR Stool Vibrio (PCR) Stl Vibrio cholerae PCR Stl Norovirus GI/GII PCR Adenovirus (PCR) B. pertussis DNA (PCR) B.parapertussis DNA PCR C. pneumoniae DNA (PCR) Coronavirus OC43 (PCR) Coronavirus HKU1 (PCR) Coronavirus 229E (PCR) SARS-CoV-2 (PCR) Coronavirus NL63 (PCR) Human Metapneumovir PCR Influenza Type A (PCR) Influenza Type B (PCR) M. pneumoniae (PCR) Parainfluenza 1 (PCR) Parainfluenza 2 (PCR) Parainfluenza 3 (PCR) Parainfluenza 4 (PCR) RSV (PCR) Entero/Rhino (PCR) Diagnostic Findings MRCP: FINDINGS: There is a left lower lobe consolidation with large pleural effusion. Tiny right pleural effusion. Moderate cardiomegaly. Bile ducts: Unremarkable. No stones. No ductal dilation. Gallbladder: Mildly distended. No stones. Liver: Hepatic steatosis with hepatomegaly. There is a small amount of ascites around the hepatic capsule. Pancreas: Unremarkable. No ductal dilation. Spleen: Unremarkable. No splenomegaly. Adrenals: Unremarkable. No mass. Kidneys and ureters: Severely hypoplastic or atrophic kidneys. Right pelvic renal transplant No hydronephrosis. Stomach and bowel: Unremarkable. No obstruction. IMPRESSION: The biliary tree is normal without evidence of dilation or filling defect. Findings concerning for hepatomegaly and hepatic steatosis. There is a small amount of ascites around the hepatic capsule. Left lower lobe consolidation with large pleural effusion. Tiny right pleural effusion. Severely hypoplastic or atrophic kidneys with right pelvic renal transplant. Moderate cardiomegaly. MR ankle RT wo con: No evidence of acute fracture or a bony edema to suggest osteomyelitis. Tendons in the anterior and posterior compartments of the leg are unremarkable. Degenerative changes are seen in the joints of the ankle with chondromalacia and a few foci of underlying bony edema for example in the anterior tibiotalar articulation. Mild soft tissue swelling is seen. IMPRESSION: 1. No evidence of osteomyelitis in the heel. Soft tissue swelling is seen which can be associated with cellulitis. 2. Degeneration of the joints of the ankle. XR chest 1V portable FINDINGS: No pneumothorax. Small right and moderate left pleural effusion again noted. Left basilar densities persist. Old, healed left-sided rib fracture. A right central venous catheter terminates in the distal SVC. Mild central pulmonary vascular congestion without overt edema. IMPRESSION: 1. No change in the small right and moderate left pleural effusions. 2. Cardiomegaly and mild central pulmonary vascular congestion again noted. CT ang AA runof w inc wo CTA: Cardiomegaly with coronary arterial calcifications. No abdominal aortic aneurysm or dissection. Moderate calcifications of the abdominal aorta and branch vessels. The vessels of the celiac trunk appear patent. Superior mesenteric artery is patent. There is a subtle nonocclusive somewhat linear filling defect noted within the superior mesenteric artery on image 135. The inferior mesenteric arteries widely patent. Calcifications within the proximal renal arteries results in high-grade stenosis bilaterally. The common and external iliac arteries are patent. RIGHT LOWER EXTREMITY: Patent common and superficial femoral arteries. The popliteal artery, and tibioperoneal trunk are patent. Chronic calcifications of the lower extremity arteries limits evaluation of the lumens. Three-vessel flow noted to level of the ankle with multifocal at least moderate stenoses. LEFT LOWER EXTREMITY: Patent common and superficial femoral arteries. The popliteal artery appears patent. There is diminished flow within the tibioperoneal trunk and proximal vessels of the lower leg which appears chronic with below the knee amputation. CT ABDOMEN/PELVIS: Small right and moderate left pleural effusions. Left basilar predominant consolidation suggestive of compressive atelectasis. No pneumatosis or pneumoperitoneum. Spleen is upper limits of normal in size. Mildly atrophic pancreas. Adrenal glands are within normal limits. Mildly contracted gallbladder. Partially imaged liver is heterogeneous. No hepatic mass or definitive marginal nodularity identified. Severely atrophic [place] kidneys. Transplanted kidney within the abdominal right lower quadrant demonstrates moderate perinephric stranding along with mild pelvocaliectasis. No obstructing stone or lesion identified. Circumferential urinary bladder wall thickening with perivesicular stranding. Pelvic structures are suboptimally visualized secondary to streak artifact from bilateral hip arthroplasties. Nonspecific retroperitoneal lymphadenopathy measures up to 1.4 x 1.0 cm within the periaortic distributions. Inguinal chain lymph nodes measure up to 8 mm. Surgical clips of the scrotum. Hyperdense material noted within the stomach and small bowel. There is apparent wall thickening noted involving several loops of small bowel. Trace ascites with mesenteric edema. Anasarca. Hyperdense material noted within the noninflamed appendix suggestive of enteric contrast versus appendicolith. No acute fracture identified. Demineralized appearance of the bones. Cortical thickening at the distal left femoral amputation stump. There is moderate cortical thickening within the mid diaphyseal right fibula compatible with a healing nondisplaced subacute fracture. Osteochondral defect of the medial talar dome. IMPRESSION: 1. Extensive vascular calcifications with three-vessel flow identified extending to level of the right ankle. The arteries of the right lower leg demonstrate multifocal mild to moderate stenoses. 2. Prior left below the knee amputation with diminished flow within the left tibial peroneal trunk and lower leg arteries. 3. Healing subacute nondisplaced right mid diaphyseal fibular fracture. 4. Osteoarthritis of the right ankle with osteochondral defect of the talar dome. 5. Nonspecific perinephric edema involving the right lower quadrant renal transplant. Correlate with urinalysis to exclude infection. 6. Fluid overload with anasarca, small volume ascites with trace right and moderate left pleural effusions. 7. Cortical irregularity of the distal left femoral amputation stump is likely postsurgical. Chronic osteomyelitis could appear similarly . 8. Small linear filling defect within the proximal lumen of the superior mesenteric artery may be artifactual or represent atheromatous plaque. A short segment dissection considered less likely. PG Care Time/CCT Total # of Minutes Spent Total Time Spent with Patient: Total time spent is greater than 50% in coordination of care (as documented) at patient's floor/unit and/or counseling patient: Coding Level of Care Code 86905 IN/OBS CONSULT LVL 5,80M Diagnoses ESRD on dialysis N18.6; Z99.2 Jaundice R17 Diabetic foot ulcer E10.621; L97.419 Diabetes mellitus type: type 1 Diabetic foot ulcer location: heel Laterality: right Non-pressure ulcer stage: unspecified non-pressure ulcer stage Diarrhea R19.7 Pleural effusion J90 (3) Diabetic foot ulcer Diabetes mellitus type: type 1 Diabetic foot ulcer location: heel Laterality: right Non-pressure ulcer stage: unspecified non-pressure ulcer stage Qualified Code(s): E10.621 - Type 1 diabetes mellitus with foot ulcer; L97.419 - Non-pressure chronic ulcer of right heel and midfoot with unspecified severity
--- NOTE | 2022-06-06 13:51 | Pharmacy Report ---
Pharmacy Glycemic Short Note 2 - Date of Service June 06, 2022 - Glycemic Short BSG Results (Last 24 hours): 06/05/22 06/05/22 06/05/22 17:55 21:47 21:48 Glucose 378 H* POC Glucose 363 H* 219 H 06/05/22 06/05/22 06/05/22 22:02 23:26 23:43 Glucose POC Glucose 90 30 L* 113 H 06/06/22 06/06/22 06/06/22 00:45 01:06 02:02 Glucose POC Glucose 36 L* 135 H 85 06/06/22 06/06/22 06/06/22 02:25 03:00 03:56 Glucose POC Glucose 85 111 H 139 H 06/06/22 06/06/22 06/06/22 05:29 05:44 06:14 Glucose 203 H POC Glucose 200 H 245 H 06/06/22 06/06/22 06/06/22 07:05 08:10 11:38 Glucose POC Glucose 259 H 255 H 148 H OUTPATIENT ANTIDIABETIC REGIMEN: * Novolog per insulin pump * A1c 6.3% unreliable in the setting of ESRD on HD ASSESSMENT: * Pt with type 1 diabetes, typically on an insulin pump- admitted with multiple complex medical states, elevated Tbili * Patient had sustained hypoglycemia overnight requiring D10 infusion- transitioned to basal/bolus insulin * Patient received 20 units of lantus this AM- will reassess tomorrow * Lunch BSG 148 mg/dL- continue current novolog parameters PLAN FOR INPATIENT GLYCEMIC CONTROL: * Hold outpatient oral diabetes medications * Basal insulin * Lantus 20 units SQ this AM- reassess tomorrow * Bolus insulin * NovoLog per scale ACHS or Q6hrs while NPO * Goal Range: Low 120 mg/dL - High 160 mg/dL * Correction Factor: 35 mg/dL/unit * Nutritional / Prandial insulin per carb ratio of 1 unit per 11 grams CHO consumed
--- NOTE | 2022-06-06 14:37 | Hospitalist Progress Note ---
Date of Service June 06, 2022 Assessment & Plan (1) Elevated bilirubin: Plan: No obstruction seen on MRCP. This could be passive hepatic congestion from heart failure associated with underlying nonalcoholic stearrhea acute hepatitis. Nephrology contacted to address fluid overload via hemodialysis tomorrow, June 07. Serial labs ordered. Appreciate GI consultation and recommendations. Currently on Zosyn. (2) Fever: Plan: Acute cholecystitis has been ruled out. Cultures are negative to date. Currently on Zosyn until final culture results are negative (3) Diarrhea: Plan: Patient reports one month of persistent diarrhea with blood and mucus in the stools. He was seen by GI for this complaint - he did complete a course of PO vancomycin. Possibly secondary in part to lactose intolerance. Patient is minimally immunocompromised on chronic steroids (4) Diabetic ulcer of right ankle: Plan: Patient with non-healing ulcer on right heel as well as dorsum of right foot. He was previously seen by wound care. Has been treating the wound at home with Santyl and dressing changes daily. His right foot was x-rayed on 05/14/22 which revealed soft tissue swelling and no acute bony abnormality. He had an aorta with runoff CTA study on 06/05/22 which revealed extensive vascular calcifications with three-vessel flow to the right ankle. Multifocal mild to moderate stenosis of the arteries of the right lower leg. Cortical irregularity of the distal left femur amputation stump likely postsurgical. Wound care consultation appreciated (5) Diabetic ulcer of right heel: Plan: No underlying osteomyelitis. Local care (6) ESRD (end stage renal disease): Plan: Patient with ESRD on HD q M/W/F. Last full treatment 06/05/22. He makes very minimal urine. He is s/p failed renal transplant. Appreciate nephrology consultation and recommendations. (7) Kidney transplant failure: Plan: Noted. Steroid-dependent. Continue Prednisone 5mg po daily (8) Type 1 diabetes: Plan: Patient with well controlled Type I DM. Last [id number]=6.7 in January 2022. He has an insulin pump in place. Insulin pump was held on admission. Basal Lantus was started. ISS as needed. Continue Lyrica for neuropathy (9) CAD (coronary artery disease): Plan: Patient with CAD s/p robotic-assisted CABG with subsequent stenting with MAR x 2 on 12/03/21.. He denies chest pain. Mild elevation of troponin=26.3 in setting of ESRD. No acute EKG changes. Patient follows with Cardiology - Dr. Hadley Continue current medical therapy. Echo report noted. (10) Hypotension: Plan: Blood pressure is now elevated. Metoprolol and losartan have been restarted. He takes midodrine for hypotension. (11) Hyperlipidemia: Plan: Stable. Continue Zetia and atorvastatin (12) GERD (gastroesophageal reflux disease): Plan: Stable. Continue Protonix (13) Moderate obstructive sleep apnea: Plan: Chronic. Patient reports compliance with CPAP at bedtime (14) Ischemic cardiomyopathy: Plan: No current acute coronary syndrome. Continue current medical management. (15) Acute on chronic systolic (congestive) heart failure: Plan: Nephrology will address fluid overload status with hemodialysis. Hopefully the liver function abnormalities will improve and the pleural effusions will resolve. (16) Coumadin toxicity: Plan: Coumadin is on hold. Vitamin K has been administered. Serial labs Plan Hopeful discharge to home within the next few days Admission and Anticipated Discharge Date Admission Date: June 05, 2022 Subjective Alert and oriented. Hypoglycemia has resolved. He remains off the insulin pump. Coumadin is on hold with elevated INR. Low-dose oral vitamin K has been ordered. Will monitor daily INR level. Intravenous hydrocortisone today then switch back to oral prednisone tomorrow. Blood pressure is now elevated. Losartan and metoprolol have been restarted. Review of Systems Review of Systems: Constitutional-no fever or chills ENT-no blurred vision, no double vision, no epistaxis, no sore throat Respiratory-no cough, no wheezing, no shortness of breath Cardiac-no palpitations, no chest pain, no syncope GI-no nausea, vomiting, diarrhea, melena, hematochezia -no urinary retention, no urinary incontinence, no dysuria, no hematuria Musculoskeletal-no joint pain, no muscle tenderness Skin-no bruising, no rashes, no pruritus Neuro-no isolated weakness, no paresthesia, no weakness Psych-no depression, no anxiety Physical Exam Physical Exam: General-alert and oriented x3, no fevers, no chills HEENT-head atraumatic and normocephalic, pupils equal and reactive to light, extraocular muscles intact Neck-no lymphadenopathy or thyromegaly, trachea midline Chest-clear to auscultation percussion. No rales wheezing or rhonchi Cardiac-regular rate and rhythm, normal S1 and S2 Abdomen-normal bowel sounds, nontender, no hepatosplenomegaly Extremities-no cyanosis, clubbing, or edema Neuro-cranial nerves II through XII intact, motor and sensory function within normal limits, strength symmetrical , no focal deficits Psych-normal affect, normal mood Results & Data Results & Data Vital Signs (Past 12 Hours) Vital Signs Temp Pulse Pulse Resp BP Pulse Ox O2 Del Method 06/06/22 13:19 36.5 C 117 H 20 186/82 H 95 Room Air 06/06/22 11:00 36.7 C 74 18 121/68 96 Room Air 06/06/22 09:57 Room Air 06/06/22 08:38 36.5 C 66 18 111/61 97 Room Air 06/06/22 07:32 64 06/06/22 03:00 36.3 C L 67 18 106/61 99 Room Air Laboratory Results 06/06/22 05:44 06/06/22 05:44 PG Care Time/CCT Total # of Minutes Spent Total Time Spent with Patient: Total time spent is greater than 50% in coordination of care (as documented) at patient's floor/unit and/or counseling patient: Coding Level of Care Code 10743 SUB INP/OBS CARE 3/50MIN Diagnoses Elevated bilirubin R17 Fever R50.9 Diarrhea R19.7 Diabetic ulcer of right ankle E11.622; L97.319 Diabetic ulcer of right heel E11.621; L97.419 ESRD (end stage renal disease) N18.6 Kidney transplant failure T86.12 Type 1 diabetes E10.9 CAD (coronary artery disease) I25.10 Hypotension I95.9 Hyperlipidemia E78.5 GERD (gastroesophageal reflux disease) K21.9 Moderate obstructive sleep apnea G47.33 Ischemic cardiomyopathy I25.5 Acute on chronic systolic (congestive) heart failure I50.23 Coumadin toxicity T45.511A
[2022-06-06] MEDS: METOPROLOL TARTRATE 25 MG TAB PO SCH ×2 (15:56→20:43)
[2022-06-06] MEDS: LOSARTAN POTASSIUM 25 MG TAB PO SCH (15:57)
[2022-06-06] MEDS ORDERED: WARFARIN SOD 4 MG TAB PO SCH (16:00)
--- NOTE | 2022-06-06 16:02 | XCELERA ---
[id number] \\[id number]
[2022-06-06 19:38] LABS: Appearance Urine Cloudy (Clear); Bacteria Urine Automated Negative (Negative); Blood Urine Trace (Negative); Color Urine Dark Yellow; Glucose Urine UA 2+ (Negative); Ketones Urine Negative (Negative); Leukocyte Esterase Urine 2+ (Negative); Nitrite Urine Positive (Negative); Protein Urine 2+ (Negative); Specific Gravity Urine 1.035 (1.000-1.030); Urobilinogen Urine Negative (Negative); WBC Urine Automated >30 /hpf (0-5); pH Urine 5.5 (4.5-7.5)
[2022-06-06 19:48] LABS: Bilirubin Urine 2+ (Negative)
[2022-06-06] MEDS: ATORVASTATIN 40 MG TAB PO SCH (20:44)
[2022-06-06] MEDS: CLOPIDOGREL BISULFATE 75 MG TAB PO SCH (20:45)
[2022-06-06] MEDS: SERTRALINE HCL 100 MG TABLET PO SCH (20:47)
[2022-06-07] MEDS: INSULIN ASPART PER UNIT CHARGE SC SCH ×5 (00:17→17:41)
[2022-06-07] MEDS: HYDROCORTISONE SOD 25 MG in SYRINGE 0 ML IV SCH ×2 (00:18→08:44)
[2022-06-07] MEDS: PIPERACILLIN/TAZOBACTAM 3.375 GM in DEXTROSE 5% 100 ML IV SCH ×2 (02:16→14:25)
[2022-06-07] MEDS ORDERED: MELATONIN 3 MG TAB PO PRN (02:20)
[2022-06-07] MEDS ORDERED: LANTUS PER UNIT CHARGE SQ SCH (07:00)
[2022-06-07] MEDS: COLCHICINE 0.6 MG TAB PO SCH (08:36)
[2022-06-07] MEDS: SEVELAMER HCL 800 MG TABLET PO SCH ×3 (08:37→16:51)
[2022-06-07] MEDS: TAMSULOSIN HCL 0.4 MG CAP PO SCH (08:37)
[2022-06-07] MEDS: EZETIMIBE 10 MG TABLET PO SCH (08:37)
[2022-06-07] MEDS: PANTOprazole 40 MG TAB PO SCH (08:37)
[2022-06-07] MEDS: LOSARTAN POTASSIUM 25 MG TAB PO SCH (08:37)
[2022-06-07] MEDS: METOPROLOL TARTRATE 25 MG TAB PO SCH (08:37)
[2022-06-07] MEDS: COLLAGENASE OINT 30 GM TUBE TOP SCH (08:38)
[2022-06-07] MEDS: PREGABALIN 75 MG CAP PO SCH (08:44)
[2022-06-07] MEDS ORDERED: CALCITRIOL 0.25 MCG CAPSULE PO SCH (09:00)
[2022-06-07] MEDS ORDERED: LOPERAMIDE HCL 2 MG CAP PO PRN (09:58)
[2022-06-07] MEDS ORDERED: LOPERAMIDE HCL 2 MG CAP PO STA (09:58)
--- NOTE | 2022-06-07 11:38 | Pharmacy Report ---
Pharmacy Glycemic Short Note 2 - Date of Service June 07, 2022 - Glycemic Short BSG Results (Last 24 hours): 06/06/22 06/06/22 06/06/22 11:38 16:19 20:12 POC Glucose 148 H 81 173 H 06/07/22 06/07/22 06/07/22 00:10 04:05 04:07 POC Glucose 227 H 311 H* 317 H* 06/07/22 06/07/22 06/07/22 06:05 06:06 07:22 POC Glucose 320 H* 312 H* 278 H 06/07/22 06/07/22 11:19 11:21 POC Glucose 433 H* 407 H* OUTPATIENT ANTIDIABETIC REGIMEN: * Novolog per insulin pump * A1c 6.3% unreliable in the setting of ESRD on HD ASSESSMENT: 06/07: * After discussion with patient novolog parameters with loosened with dinner as outpatient carb ratio is 32, correction factor 50 * Hydrocortisone was changed back to 5 mg prednisone at HS starting tonight * Patient trended up overnight- may suggest need for increased basal? Left the same for today, will get overnight checks, increase tomorrow if trend continues/no snacking * Lunch BSG continued to be elevated but was taken after patient had eaten a sandwich- will further tighten carb ratio with dinner. 06/06 * Pt with type 1 diabetes, typically on an insulin pump- admitted with multiple complex medical states, elevated Tbili * Patient had sustained hypoglycemia overnight requiring D10 infusion- transitioned to basal/bolus insulin * Patient received 20 units of lantus this AM- will reassess tomorrow * Lunch BSG 148 mg/dL- continue current novolog parameters PLAN FOR INPATIENT GLYCEMIC CONTROL: * Hold outpatient oral diabetes medications * Basal insulin * Lantus 20 units SQ this AM- reassess tomorrow * Bolus insulin * NovoLog per scale ACHS or Q6hrs while NPO * Goal Range: Low 120 mg/dL - High 160 mg/dL * Correction Factor: 45 mg/dL/unit * Nutritional / Prandial insulin per carb ratio of 1 unit per 15 grams CHO consumed
--- NOTE | 2022-06-07 13:19 | Nephrology Progress Note ---
Date of Service June 07, 2022 Assessment & Plan (1) ESRD on dialysis: Plan: IHD MWF at [facility]. Outpatient Rx 3.5hr F-180NR Qb 450 Qd 800 2K 2Ca Na 137 HCO3 35 EDW 66 kg. Orders for HD today entered into the EHR and reviewed with dialysis nurse. A ggressive fluid removal with treatment today. Tolerating fluid removal well. Current UF goal >4.5 L. Clearance with treatment acceptable. TDC functioning well. Medications appropriate for kidney function. Continue calcitriol as Rx. (2) Jaundice: Plan: GI consultation appreciated. Liver US and MRCP without evidence of obstruction. Screening for viral hepatitis negative. No transaminitis. (3) Diabetic foot ulcer: Plan: Followed by wound care. MRI reviewed. Presented with evidence of sepsis with elevated lactate. Unclear if this is a potential source of infection at this time. (4) Diarrhea: Plan: Stool studies pending. (5) Pleural effusion: Plan: Chronic, stable. Transudative by history. Admission and Anticipated Discharge Date Admission Date: June 05, 2022 Subjective No acute events overnight. Constantine was seen and evaluated this AM prior to HD. Update provided during treatment. He is tolerating HD well. Tolerating additional UF. BP acceptable. Chronic diarrhea remains only complaint. Multiple watery bowel movements overnight. No abdominal pain or melena. Review of Systems Review of Systems: All systems reviewed & are unremarkable except as noted in HPI & below Gastrointestinal: as per Subjective / HPI Physical Exam Constitutional: well developed; no acute distress Eyes: + scleral abnormality; sclerae not anicteric and no corneal abnormality ENMT: Mouth: + dry oral mucous membranes; no oral mucosal abnormality Neck: normal visual inspection, trachea midline and + thick neck Respiratory: normal respiratory effort Auscultation: lungs clear to auscultation bilaterally Cardiovascular: Rate/Rhythm: regular rate Heart Sounds: normal S1, normal S2 and + murmur Extremities: + pedal edema and + AV fistula; no edema Musculoskeletal: Extremities: no cyanosis and no clubbing Skin: normal turgor and + jaundice; no lesions Neurologic: Motor/Sensory: no tremor and no asterixis Psychiatric: Orientation: alert and oriented x 3 Results & Data Vital Signs (Past 12 Hours) Vital Signs Temp Pulse Pulse Pulse Resp BP BP 06/07/22 12:30 72 136/72 06/07/22 12:00 70 140/96 06/07/22 11:42 70 146/94 H 06/07/22 11:35 36.5 C 71 06/07/22 08:07 36.5 C 68 18 124/71 06/07/22 07:50 06/07/22 06:59 73 06/07/22 02:49 36.4 C L 72 16 130/80 Pulse Ox O2 Del Method 06/07/22 12:30 06/07/22 12:00 06/07/22 11:42 06/07/22 11:35 06/07/22 08:07 97 Room Air 06/07/22 07:50 Room Air 06/07/22 06:59 06/07/22 02:49 98 Room Air Laboratory Results Laboratory Results - last 24 hr 06/06/22 06/06/22 06/06/22 16:19 19:00 20:12 POC Glucose 81 173 H Urine Color Dark Yellow Urine Appearance Cloudy A Urine pH 5.5 Ur Specific [place] 1.035 H Urine Protein 2+ H Urine Glucose (UA) 2+ H Urine Ketones Negative Urine Blood Trace H Urine Nitrite Positive A Urine Bilirubin 2+ H Urine Urobilinogen Negative Ur Leukocyte Esterase 2+ H Urine WBC (Auto) >30 H Urine RBC (Auto) 10-30 H U Hyaline Cast (Auto) 1-5 U Epithel Cells (Auto) 10-20 H Urine Bacteria (Auto) Negative 06/07/22 06/07/22 06/07/22 00:10 04:05 04:07 POC Glucose 227 H 311 H* 317 H* Urine Color Urine Appearance Urine pH Ur Specific [place] Urine Protein Urine Glucose (UA) Urine Ketones Urine Blood Urine Nitrite Urine Bilirubin Urine Urobilinogen Ur Leukocyte Esterase Urine WBC (Auto) Urine RBC (Auto) U Hyaline Cast (Auto) U Epithel Cells (Auto) Urine Bacteria (Auto) 06/07/22 06/07/22 06/07/22 06:05 06:06 07:22 POC Glucose 320 H* 312 H* 278 H Urine Color Urine Appearance Urine pH Ur Specific [place] Urine Protein Urine Glucose (UA) Urine Ketones Urine Blood Urine Nitrite Urine Bilirubin Urine Urobilinogen Ur Leukocyte Esterase Urine WBC (Auto) Urine RBC (Auto) U Hyaline Cast (Auto) U Epithel Cells (Auto) Urine Bacteria (Auto) 06/07/22 06/07/22 11:19 11:21 POC Glucose 433 H* 407 H* Urine Color Urine Appearance Urine pH Ur Specific [place] Urine Protein Urine Glucose (UA) Urine Ketones Urine Blood Urine Nitrite Urine Bilirubin Urine Urobilinogen Ur Leukocyte Esterase Urine WBC (Auto) Urine RBC (Auto) U Hyaline Cast (Auto) U Epithel Cells (Auto) Urine Bacteria (Auto) PG Care Time/CCT Total # of Minutes Spent Total Time Spent with Patient: Total time spent is greater than 50% in coordination of care (as documented) at patient's floor/unit and/or counseling patient: Coding Level of Care Code 87046 SUB INP/OBS CARE 3/50MIN Diagnoses ESRD on dialysis N18.6; Z99.2 Jaundice R17 Diabetic foot ulcer E10.621; L97.419 Diabetes mellitus type: type 1 Diabetic foot ulcer location: heel Laterality: right Non-pressure ulcer stage: unspecified non-pressure ulcer stage Diarrhea R19.7 Pleural effusion J90 (3) Diabetic foot ulcer Diabetes mellitus type: type 1 Diabetic foot ulcer location: heel Laterality: right Non-pressure ulcer stage: unspecified non-pressure ulcer stage Qualified Code(s): E10.621 - Type 1 diabetes mellitus with foot ulcer; L97.419 - Non-pressure chronic ulcer of right heel and midfoot with unspecified severity
[2022-06-07] MEDS ORDERED: PSYLLIUM or GUAR GUM FIBER POWDER PACKET PO STA (13:25)
[2022-06-07] MEDS ORDERED: allopurinoL 100 MG TAB PO SCH (14:00)
--- NOTE | 2022-06-07 14:00 | Hospitalist Progress Note ---
Date of Service June 07, 2022 Assessment & Plan (1) Elevated bilirubin: Plan: No obstruction seen on MRCP. This could be passive hepatic congestion from heart failure associated with underlying nonalcoholic stearrhea acute hepatitis. Nephrology contacted to address fluid overload via hemodialysis. Serial labs ordered. Appreciate GI consultation and recommendations. Zosyn has been discontinued (2) Fever: Plan: Acute cholecystitis has been ruled out. Cultures are negative to date. Zosyn has been discontinued (3) Diarrhea: Plan: Patient reports one month of persistent diarrhea with blood and mucus in the stools. He was seen by GI for this complaint - he did complete a course of PO vancomycin. Possibly secondary in part to lactose intolerance. Patient is minimally immunocompromised on chronic steroids. No pathogens isolated on stool studies. Metamucil twice daily scheduled dosing added. Will use Imodium as needed (4) Diabetic ulcer of right ankle: Plan: Patient with non-healing ulcer on right heel as well as dorsum of right foot. He was previously seen by wound care. Has been treating the wound at home with Santyl and dressing changes daily. His right foot was x-rayed on 05/14/22 which revealed soft tissue swelling and no acute bony abnormality. He had an aorta with runoff CTA study on 06/05/22 which revealed extensive vascular calcifications with three-vessel flow to the right ankle. Multifocal mild to moderate stenosis of the arteries of the right lower leg. Cortical irregularity of the distal left femur amputation stump likely postsurgical. Wound care consultation appreciated (5) Diabetic ulcer of right heel: Plan: No underlying osteomyelitis. Local care (6) ESRD (end stage renal disease): Plan: Patient with ESRD on HD q M/W/. He is s/p failed renal transplant. Appreciate nephrology consultation and recommendations. (7) Kidney transplant failure: Plan: Noted. Steroid-dependent. Continue Prednisone 5mg po daily (8) Type 1 diabetes: Plan: Patient with well controlled Type I DM. Last DrpR8C=4.7 in January 2022. He has an insulin pump in place. Insulin pump was held on admission. Basal Lantus was started. ISS as needed. Continue Lyrica for neuropathy. Insulin pump will be restarted at discharge (9) CAD (coronary artery disease): Plan: Patient with CAD s/p robotic-assisted CABG with subsequent stenting with MAR x 2 on 12/03/21.. He denies chest pain. Mild elevation of troponin=26.3 in setting of ESRD. No acute EKG changes. Patient follows with Cardiology - Dr. Hadley Continue current medical therapy. Echo report noted. (10) Hypotension: Plan: Blood pressure elevated on June 07. Metoprolol and losartan have been restarted. He takes midodrine for hypotension. (11) Hyperlipidemia: Plan: Stable. Continue Zetia and atorvastatin (12) GERD (gastroesophageal reflux disease): Plan: Stable. Continue Protonix (13) Moderate obstructive sleep apnea: Plan: Chronic. Patient reports compliance with CPAP at bedtime (14) Ischemic cardiomyopathy: Plan: No current acute coronary syndrome. Continue current medical management. (15) Acute on chronic systolic (congestive) heart failure: Plan: Nephrology will address fluid overload status with hemodialysis. Hopefully the liver function abnormalities will improve and the pleural effusions will resolve. (16) Coumadin toxicity: Plan: Coumadin is on hold. Vitamin K has been administered. Serial labs Plan Hopeful discharge to home tomorrow, June 08 Admission and Anticipated Discharge Date Admission Date: June 05, 2022 Subjective The patient was seen in dialysis. He is alert and oriented. He is having loose stools which appear to be chronic and Metamucil has been started. Stool for C. difficile and other pathogens negative. Parenteral steroid therapy switch back to oral prednisone today, June 08. Labs remain pending. Anticipate discharge to home tomorrow, June 08 Review of Systems Review of Systems: Constitutional-no fever or chills ENT-no blurred vision, no double vision, no epistaxis, no sore throat Respiratory-no cough, no wheezing, no shortness of breath Cardiac-no palpitations, no chest pain, no syncope GI-no nausea, vomiting, diarrhea, melena, hematochezia -no urinary retention, no urinary incontinence, no dysuria, no hematuria Musculoskeletal-no joint pain, no muscle tenderness Skin-no bruising, no rashes, no pruritus Neuro-no isolated weakness, no paresthesia, no weakness Psych-no depression, no anxiety Physical Exam Physical Exam: General-alert and oriented x3, no fevers, no chills HEENT-head atraumatic and normocephalic, pupils equal and reactive to light, extraocular muscles intact Neck-no lymphadenopathy or thyromegaly, trachea midline Chest-clear to auscultation percussion. No rales wheezing or rhonchi Cardiac-regular rate and rhythm, normal S1 and S2 Abdomen-normal bowel sounds, nontender, no hepatosplenomegaly Extremities-no cyanosis, clubbing, or edema Neuro-cranial nerves II through XII intact, motor and sensory function within normal limits, strength symmetrical , no focal deficits Psych-normal affect, normal mood Results & Data Results & Data Vital Signs (Past 12 Hours) Vital Signs Temp Pulse Pulse Pulse Resp BP BP 06/07/22 12:30 72 136/72 06/07/22 12:00 70 140/96 06/07/22 11:42 70 146/94 H 06/07/22 11:35 36.5 C 71 06/07/22 08:07 36.5 C 68 18 124/71 06/07/22 07:50 06/07/22 06:59 73 06/07/22 02:49 36.4 C L 72 16 130/80 Pulse Ox O2 Del Method 06/07/22 12:30 06/07/22 12:00 06/07/22 11:42 06/07/22 11:35 06/07/22 08:07 97 Room Air 06/07/22 07:50 Room Air 06/07/22 06:59 06/07/22 02:49 98 Room Air Laboratory Results 06/06/22 05:44 06/06/22 05:44 PG Care Time/CCT Total # of Minutes Spent Total Time Spent with Patient: Total time spent is greater than 50% in coordination of care (as documented) at patient's floor/unit and/or counseling patient: Coding Level of Care Code 55842 SUB INP/OBS CARE 3/50MIN Diagnoses Elevated bilirubin R17 Fever R50.9 Diarrhea R19.7 Diabetic ulcer of right ankle E11.622; L97.319 Diabetic ulcer of right heel E11.621; L97.419 ESRD (end stage renal disease) N18.6 Kidney transplant failure T86.12 Type 1 diabetes E10.9 CAD (coronary artery disease) I25.10 Hypotension I95.9 Hyperlipidemia E78.5 GERD (gastroesophageal reflux disease) K21.9 Moderate obstructive sleep apnea G47.33 Ischemic cardiomyopathy I25.5 Acute on chronic systolic (congestive) heart failure I50.23 Coumadin toxicity T45.511A
[2022-06-07 14:49] LABS: Albumin Globulin Ratio 1.1 (0.9-2); Albumin Level 3.4 gm/dl (3.4-5.0); BUN Creatinine Ratio 9.4 (10-20); Bilirubin,Total 9.1 mg/dl (0.2-1.0); Calcium 8.3 mg/dl (8.6-10.3); Creatinine Clr Calc Pharmacy 36.3 ml/min; Est GFR (African American) 41.8 ml/min; Globulin 3.2 gm/dl (2.5-4.0); Potassium 3.6 mmol/L (3.5-5.1); Total Protein 6.6 gm/dl (6.0-8.3)
[2022-06-07 15:00] LABS: Anisocytosis Present; Basophils # (auto) 0.02 K/uL (0-0.2); Basophils % (auto) 0.2 %; Eosinophils # (auto) 0.02 K/uL (0-0.50); Eosinophils % (auto) 0.2 %; Giant Platelets 2+; Hematocrit (blood only) 28.6 % (42.0-52.0); Hemoglobin 10.1 g/dl (14.0-18.0); Immature Granulocytes # (auto) 0.17 K/uL (0.01-0.20); Immature Granulocytes % (auto) 1.6 %; Lymphocytes # (auto) 0.85 K/uL (1.2-3.4); Lymphocytes % (auto) 8.1 %; Mean Corpuscular Hemoglobin 30.5 pg (25.0-34.0); Mean Corpuscular Hgb Conc 35.3 g/dL (32.0-36.0); Mean Corpuscular Volume 86.4 fL (80.0-100.0); Monocytes # (auto) 0.62 K/uL (0.11-0.59); Monocytes % (auto) 5.9 %; Neutrophils # (auto) 8.83 K/uL (1.40-6.50); Platelet Count 140 K/uL (130-400); Platelet Estimate Normal (Normal); Polychromasia 2+; RDW Coefficient of Variation 29.2 % (11.5-14.5); RDW Standard Deviation 89.4 fL (36.4-46.3); Red Blood Count 3.31 M/uL (4.70-6.10); Target Cells 2+; White Blood Count 10.51 K/ul (4.8-10.8)
[2022-06-07 15:03] LABS: INR 1.9 (0.9-1.1); Prothrombin Time 19.9 Seconds (9.0-12.0)
[2022-06-07] MEDS ORDERED: PSYLLIUM or GUAR GUM FIBER POWDER PACKET PO SCH (21:00)
[2022-06-07] MEDS ORDERED: predniSONE 5 MG TAB PO SCH (21:00)
--- NOTE | 2022-06-08 09:40 | Discharge Summary ---
Date of Service June 08, 2022 Admission HPI Per Admitting Provider Constantine Dalton is a 46yo male with multiple medical comorbidities sent from GI clinic after abnormal labs were obtained - specifically elevated Tbili of 11.9 on outpatient labs. Concern for possible CBD pathology. He was seen in GI clinic today and had an aorta with runoff CTA performed. Unable to view today's GI note and PCP note from 06/04/22. Patient with several complaints today. He has diffuse abdominal pain, mostly in RLQ as well as abdominal bloating. He reports persistent diarrhea ongoing for the last month. Multiple episodes of diarrhea daily, watery with both blood and mucus. His diarrhea tends to occur after meals. He was seen by GI for this complaint on 05/02/22. He was treated presumptively for C. diff with PO vancomycin. He reports his symptoms improved but then reoccurred after discontinuation of the Vancomycin. He has been taking Immodium with some improvement. He feels that his diarrhea may be secondary to lactose intolerance. He has also had one month of intermittent nausea and vomiting. He reports intermittent fevers, typically on HD days. Febrile today at 38.1. No additional complaints. He denies chest pain, palpitations, SOB. He makes a small amount of urine. In the ER he is febrile, mildly hypotensive. NAD. Patient is medically complex. He has well controlled Type I DM with insulin pump in place (last TcgB2T=0.7 on 03/01/22). ESRD s/p renal transplant now on HD q M/W/F on chronic Prednisone therapy, no further immunosuppressive agents. (Follows with Dr. Amador. Last full HD treatment 06/05/22). CAD s/p minimally invasive robotic-assisted CABG (BA to LAD) on 11/29/21. He had a cardiac catheterization on 12/03/21 which revealed occlusion of the BA to LAD graft s/p atherectomy, angioplasty and stenting x 2. CHF with last echo 02/21/22 with apical akinesis, mid inferior and inferoseptal hypokinesis and EF of 35-40%. Patient with recurrent pleural effusion s/p thoracentesis. He has PAD s/p right BKA. Now with unhealing wound on dorsum of right foot as well as right heel with deep eschar. He was following with Wound clinic. ER Course: Wound cultures obtained Blood cultures obtained Vancomycin NSS x 250mL Zosyn 4.5gm Tylenol 1gm Principal Diagnosis Fever, suspected viral enteritis, elevated liver function test possibly from passive hepatic congestion Discharge Exam General-alert and oriented x3, no fevers, no chills HEENT-head atraumatic and normocephalic, pupils equal and reactive to light, extraocular muscles intact Neck-no lymphadenopathy or thyromegaly, trachea midline Chest-clear to auscultation percussion. No rales wheezing or rhonchi Cardiac-regular rate and rhythm, normal S1 and S2 Abdomen-normal bowel sounds, nontender, no hepatosplenomegaly Extremities-no cyanosis, clubbing, or edema Neuro-cranial nerves II through XII intact, motor and sensory function within normal limits, strength symmetrical , no focal deficits Psych-normal affect, normal mood Discharge Data Allergies Allergy/AdvReac Type Severity Reaction Status Date / Time pork derived (porcine) Allergy Intermediate Hives with Verified 06/05/22 19:14 Pork Insulin lactose Allergy Mild Unknown Verified 06/05/22 19:14 sacubitril [From Entresto] AdvReac Severe Hypotension Verified 06/05/22 19:14 valsartan [From Entresto] AdvReac Severe Hypotension Verified 06/05/22 19:14 Consultations 06/05/22 19:19 ED Decision to Admit Stat 06/05/22 22:07 Consult Gastroenterology Routine Consult Nephrology Routine Ordered Studies 06/05/22 20:38 US RUQ [US liver] Stat 06/06/22 03:32 MR MRCP Routine MR ankle RT wo con Routine Hospital Course (1) Elevated bilirubin: No obstruction seen on MRCP. This could be passive hepatic congestion from heart failure associated with underlying nonalcoholic stearrhea acute hepatitis. Nephrology contacted to address fluid overload via hemodialysis. Serial labs ordered. Appreciate GI consultation and recommendations. Zosyn has been discontinued (2) Fever: Acute cholecystitis has been ruled out. Cultures are negative to date. Zosyn has been discontinued (3) Diarrhea: Patient reports one month of persistent diarrhea with blood and mucus in the stools. He was seen by GI for this complaint - he did complete a course of PO vancomycin. Possibly secondary in part to lactose intolerance. Patient is minimally immunocompromised on chronic steroids. No pathogens isolated on stool studies. Metamucil twice daily scheduled dosing added. Will use Imodium as needed (4) Diabetic ulcer of right ankle: Patient with non-healing ulcer on right heel as well as dorsum of right foot. He was previously seen by wound care. Has been treating the wound at home with Santyl and dressing changes daily. His right foot was x-rayed on 05/14/22 which revealed soft tissue swelling and no acute bony abnormality. He had an aorta with runoff CTA study on 06/05/22 which revealed extensive vascular calcifications with three-vessel flow to the right ankle. Multifocal mild to moderate stenosis of the arteries of the right lower leg. Cortical irregularity of the distal left femur amputation stump likely postsurgical. Wound care consultation appr eciated (5) Diabetic ulcer of right heel: No underlying osteomyelitis. Local care (6) ESRD (end stage renal disease): Patient with ESRD on HD q M/W/. He is s/p failed renal transplant. Appreciate nephrology consultation and recommendations. (7) Kidney transplant failure: Noted. Steroid-dependent. Continue Prednisone 5mg po daily (8) Type 1 diabetes: Patient with well controlled Type I DM. Last GmuR5G=0.7 in January 2022. He has an insulin pump in place. Insulin pump was held on admission. Basal Lantus was started. ISS as needed. Continue Lyrica for neuropathy. Insulin pump will be restarted at discharge (9) CAD (coronary artery disease): Patient with CAD s/p robotic-assisted CABG with subsequent stenting with MAR x 2 on 12/03/21.. He denies chest pain. Mild elevation of troponin=26.3 in setting of ESRD. No acute EKG changes. Patient follows with Cardiology - Dr. Hadley Continue current medical therapy. Echo report noted. (10) Hypotension: Blood pressure elevated on June 07. Metoprolol and losartan have been restarted. He takes midodrine for hypotension. (11) Hyperlipidemia: Stable. Continue Zetia and atorvastatin (12) GERD (gastroesophageal reflux disease): Stable. Continue Protonix (13) Moderate obstructive sleep apnea: Chronic. Patient reports compliance with CPAP at bedtime (14) Ischemic cardiomyopathy: No current acute coronary syndrome. Continue current medical management. (15) Acute on chronic systolic (congestive) heart failure: Nephrology will address fluid overload status with hemodialysis. Hopefully the liver function abnormalities will improve and the pleural effusions will resolve. (16) Coumadin toxicity: Coumadin is on hold. Vitamin K has been administered. Serial labs Plan Discharge to home today after dialysis, June 07 Total Time Total Time Spent Total Time Spent (In Minutes): 40 minutes Discharge Plan Discharge Items Patient Disposition: Home - Self-Care Reason For Visit: SOB Discharge Diagnosis: SOB Activity: Resume your previous activity Non-emergency contact: Primary Care Provider Call non-emergency contact if: you have any medication questions, your symptoms worsen, your pain is not controlled, your pain is worsening, your pain is unusual for you, your pain is concerning for you, you have a fever, your rectal temperature is above 100.4, your temperature is above 101, your temperature is above 101.5, your wound has increased redness, your wound has increased drainage and your wound pain has increased Follow-up/Referrals: Eli Costa MD [Primary Care Provider] - 06/18/22 3:00 pm (Dr. Costa did not have any available appointment) Diet: Carb Count or DM1, Dialysis Renal and Heart Healthy Addtl Attending Provider Instructions: You have been hospitalized for an acute medical problem. During your stay at [facility], we have made an effort to correct the problem that brought you to the hospital while keeping you as comfortable as possible. Medications were used to bring your condition under control and your discharge instructions will include directions for any medications you should take after leaving the hospital. Please make sure you see your Primary Care Provider as part of your follow up plan. Pending Studies at Discharge: No Stand-Alone Forms: My [facility], Smoking Cessation Medications and DC Order Prescriptions: Continued Santyl 250 unit/gram ointment 1 applic topical DAILY 14 Days Qty: 90 1RF Rx Instructions: Apply nickel thick to wounds daily. clopidogrel [Plavix] 75 mg tablet 75 mg PO HS Qty: 30 5RF ropinirole 0.5 mg tablet 0.5 mg PO DAILY Qty: 90 3RF pregabalin 75 mg capsule 75 mg PO BID Qty: 240 0RF Rx Instructions: Take two tablets in the morning (150mg) and one tablet in the evening (75mg) sertraline 100 mg tablet 100 mg PO HS Qty: 90 0RF (DME) Dexcom G6 Transmitter Device See Dose Instructions .ROUTE .MEDSUPPLY Qty: 1 3RF Dose Instruction: Change transmitter every 90 days Rx Instructions: Change transmitter every 90 days (DME) Dexcom G6 Sensor Device See Dose Instructions .ROUTE .MEDSUPPLY Qty: 9 3RF Dose Instruction: Change sensor every 10 days Rx Instructions: Change sensor every 10 days insulin aspart U-100 [Novolog U-100 Insulin aspart] 100 unit/mL solution 45 unit continuous subcutaneous infusion CONTINOUS Qty: 30 0RF Rx Instructions: 45 units subcutaneously daily via insulin pump; tamsulosin 0.4 mg capsule 0.4 mg PO DAILY Qty: 90 3RF prednisone 5 mg tablet 5 mg PO HS Qty: 90 3RF ezetimibe [Zetia] 10 mg tablet 10 mg PO DAILY ferrous sulfate 325 mg (65 mg iron) tablet 325 mg PO BID sevelamer carbonate [Renvela] 800 mg tablet 1,600 mg PO TID Rx Instructions: must administer with a meal/food -- Take 1 tablet with each meal. Stop calcium acetate when starting Renvela. metoprolol succinate 25 mg tablet extended release 24 hr 12.5 mg PO BID Rx Instructions: per patient (DME) insulin syringe-needle U-100 [BD Insulin Syringe] 0.5 mL 29 gauge x 1/2" syringe See Rx Instructions .Route Qty: 200 0RF Rx Instructions: As directed twice daily omeprazole 20 mg capsule,delayed release(DR/EC) 20 mg PO BID acetaminophen [Tylenol] 325 mg Tablet 650 mg PO Q6H PRN (Reason: PAIN/FEVER) lidocaine-prilocaine 2.5-2.5 % cream 1 applic topical DIRECTED PRN (Reason: TO DIALYSIS ACCESS LINE) Rx Instructions: APPLY 1-2 HRS PRIOR TO DIALYSIS warfarin 2 mg Tablet 2 - 4 mg PO DIRECTED Protocol: Dose Management Condition: Friday Dose/Route: 4 mg Instruction: 2 x 2 mg tablets Condition: Friday Dose/Route: 4 mg Instruction: 2 x 2 mg tablets Condition: Friday Dose/Route: 4 mg Instruction: 2 x 2 mg tablets Condition: Friday Dose/Route: 4 mg Instruction: 2 x 2 mg tablets Condition: Dose/Route: 4 mg Instruction: 2 x 2 mg tablets Condition: Friday Dose/Route: 4 mg Instruction: 2 x 2 mg tablets Condition: Friday Dose/Route: 4 mg Instruction: 2 x 2 mg tablets Protocol Text: Adjustment Start Date: Friday05/03/22 INR Value: 2.5 INR Date: 05/02/22 Recheck Date: 06/02/22 Rx Instructions: As directed by anti-coagulation clinic losartan 25 mg tablet 25 mg PO DAILY colchicine 0.6 mg Tablet 0.3 mg PO DAILY atorvastatin 80 mg tablet 40 mg PO HS potassium chloride 10 mEq Capsule, Extended Release 20 meq PO DAILY Rx Instructions: DOES NOT THINK HE TAKES. calcitriol 0.5 mcg capsule 0.5 mcg PO Q OTHER DAY Rx Instructions: TAKE ON ODD DAYS ergocalciferol (vitamin D2) [Vitamin D2] 1,250 mcg (50,000 unit) Capsule 1,250 mcg PO WK Rx Instructions: MON allopurinol 100 mg tablet 100 mg PO .3X WEEKLY Rx Instructions: TAKE 3 TIMES A WEEK, AFTER DIALYSIS darbepoetin sarah in polysorbat 200 mcg/mL solution 200 mcg subcut DIRECTED furosemide [Lasix] 40 mg tablet 80 mg PO DAILY PRN (Reason: .Wt gain) Rx Instructions: patient says takes PRN for > 3lb wt gain midodrine 5 mg tablet 5 mg PO TIDM Rx Instructions: TAKE 1 TABLET BY MOUTH BEFORE MEALS calcium carbonate [Tums] 200 mg calcium (500 mg) Tablet,Chewable 0 mg PO TIDM Discharge Orders: Discharge Order (Routine); Ordered 06/07/22 Ordered By: Farshad Patel Admission Data Admit Date/Time: 06/05/22 20:38 Attending Provider: Hieu Meraz Admit Provider: Ronel Lima Primary Care Provider: Eli Costa Other Providers: Ronel Lima ; Grant Nunez ; Edi Amador Other Interventions: Discharge Summary Assessment (RN) Last Done: 06/07/22 18:29 Coding Level of Care Code 11911 INP/OBS DISCH >30 MIN Diagnoses Elevated bilirubin R17 Fever R50.9 Diarrhea R19.7 Diabetic ulcer of right ankle E11.622; L97.319 Diabetic ulcer of right heel E11.621; L97.419 ESRD (end stage renal disease) N18.6 Kidney transplant failure T86.12 Type 1 diabetes E10.9 CAD (coronary artery disease) I25.10 Hypotension I95.9 Hyperlipidemia E78.5 GERD (gastroesophageal reflux disease) K21.9 Moderate obstructive sleep apnea G47.33 Ischemic cardiomyopathy I25.5 Acute on chronic systolic (congestive) heart failure I50.23 Coumadin toxicity T45.511A
== END 2022-06-07 19:33 | disposition home or self-care (01) | DRG 391 ==
LOC: ED 17:09 → SUATTDRO 20:38 → 2S 20:38

== ENCOUNTER 2022-06-17 16:45 | Inpatient (IN) ==
--- NOTE | 2022-06-17 17:08 | ED Triage Note ---
Date of Service June 17, 2022 History of Present Illness This patient was briefly evaluated while in triage. An abbreviated physical exam was performed. This patient is a 46-year-old Male who presents to the ED for evaluation of shortness of breath and concern for fluid overload. Has not had dialysis since 06/12 since being admitted here. Cough, wheezing. Physical Exam CONSTITUTIONAL: mildly uncomfortable SKIN: jaundice, warm, dry CARDIAC: regular rate and rhythm RESPIRATORY: mildly tachypneic with minimal diffuse wheezes. crackles L base. 1+ edema in R extremity ABDOMEN: No focal tenderness Initial orders for labs and / or imaging were placed and patient was placed in the waiting area until a bed is available. Please see further documentation for the full ED course.
[2022-06-17 18:58] LABS: Hematocrit (blood only) 30.6 % (42.0-52.0); Hemoglobin 10.3 g/dl (14.0-18.0); Mean Corpuscular Hemoglobin 32.3 pg (25.0-34.0); Mean Corpuscular Hgb Conc 33.7 g/dL (32.0-36.0); Mean Corpuscular Volume 95.9 fL (80.0-100.0); Platelet Count 143 K/uL (130-400); RDW Standard Deviation 83.3 fL (36.4-46.3); Red Blood Count 3.19 M/uL (4.70-6.10); White Blood Count 12.14 K/ul (4.8-10.8)
[2022-06-17 19:12] LABS: Albumin Globulin Ratio 1.1 (0.9-2); Albumin Level 3.7 gm/dl (3.4-5.0); Bilirubin,Total 8.1 mg/dl (0.2-1.0); Calcium 8.9 mg/dl (8.6-10.3); Creatinine Clr Calc Pharmacy 11.3 ml/min; Est GFR (African American) 10.2 ml/min; Est GFR (Non-African American) 8.8 ml/min; Globulin 3.4 gm/dl (2.5-4.0); Potassium 6.1 mmol/L (3.5-5.1); Total Protein 7.1 gm/dl (6.0-8.3); Troponin I High Sensitivity 26.6 pg/ml (0-20)
[2022-06-17 19:21] LABS: ALC (manual) 2.43 K/uL (1.2-3.4); Anisocytosis Present; Basophils # (manual) 0.36 K/uL (0-0.2); Basophils % (manual) 3 %; Echinocytes 1+; Eosinophils # (manual) 0.49 K/uL (0-0.50); Eosinophils % (manual) 4 %; Large Granular Lymph # (manua 2.06 K/uL; Large Granular Lymph % (manual) 17 %; Lymphocytes # (manual) 0.36 K/uL (1.2-3.4); Lymphocytes % (manual) 3 %; Monocytes # (manual) 0.49 K/uL (0.11-0.59); Monocytes % (manual) 4 %; Neutrophils % (manual) 70 %; Polychromasia 1+; Target Cells 2+
[2022-06-17] MEDS ORDERED: PATIROMER CALCIUM SORBITEX 8.4 GM PACK PO STA (21:32)
--- NOTE | 2022-06-17 21:36 | Emergency Department Note ---
Impression & Plan Dyspnea, CKD (chronic kidney disease) requiring chronic dialysis, Hyperkalemia, Viral URI ED Provider Note ED Provider Note NAME: JEIMY GALINDO AGE:46 SEX: Male : 1975 ARRIVES VIA: Private vehicle INFORMANT: Patient ED PROVIDER(s): Arcelia Cheney DO CHIEF COMPLAINT: Shortness of breath, volume overload HPI: This is a 46-year-old male presents emergency department due to concern for increased difficulty breathing and needing dialysis. Patient is a chronic dialysis patient and follows with Dr. Myrick of nephrology. He states his dialysis schedule was being changed from Friday to Friday. He states he was last dialyzed on Friday of last week but was not scheduled to be dialyzed until tomorrow. He states in the last 2 days he has had increased trouble breathing. No history of asthma or COPD, no history of tobacco abuse. Patient does have a prior heart history. Patient states his dialysis catheter has been working well otherwise. Patient feels volume overload began when he was most recently hospitalized with GI symptoms and hyperbilirubinemia. He states he has not had any worsening abdominal pain, vomiting or diarrhea. He denies fevers or chills. He states he did develop a cough following his hospitalization. PAST MEDICAL HISTORY:See Below PAST SURGICAL HISTORY:See Below FAMILY HISTORY:See Below SOCIAL HISTORY:See Below HOME MEDICATIONS:See Below ALLERGIES:See Below VITALS:See Below PHYSICAL EXAMINATION: GENERAL: alert, well appearing, well nourished, no distress, non-toxic EYE EXAM: normal conjunctiva, PERRL and EOM's grossly intact OROPHARYNX: no exudate, no erythema, lips, buccal mucosa, and tongue normal and mucous membranes are moist NECK: supple, no nuchal rigidity, no adenopathy, non-tender LUNGS: Clear to auscultation. Normal chest wall mechanics, no w/r/r HEART: no murmurs, S1 normal and S2 normal ABDOMEN: abdomen soft, non-tender, normo-active bowel sounds, no masses, no rebound or guarding. BACK: Back is symmetrical on inspection and there is no deformity, no midline tenderness, no CVA tenderness. SKIN: no rashes, petechiae, orbruising UPPER EXTREMITIES: upper extremities are grossly normal. FROM, nml pulses b/l. LOWER EXTREMITIES: No pitting edema. FROM, nml pulses b/l. NEURO EXAM: Normal sensorium, cranial nerves II-XII grossly intact, normal speech, no facial droop,nogross weakness of arms, no gross weakness of legs. Gross sensation intact. No ataxia. Vital Signs: reviewed and remarkable Differential Diagnosis: Acute pulmonary edema, ACS, PE, acute viral syndrome, pneumonia, volume overload, pleural effusion, CHF, as well as others were considered MEDICAL DECISION MAKING: This is a 46-year-old male presents emergency department due to concern for increased shortness of breath and volume overload. Patient's dialysis schedule is in the process of being changed, and patient feels this is contributing as he would not go for dialysis until tomorrow. Patient also feels that fluids he received while he was hospitalized a few weeks ago are contributing. Patient also notes a recent cough since his last hospitalization. He states he is still compliant with his medications. Labs drawn and sent, IV established, EKG and chest x-ray performed at bedside interpreted by me, patient placed on telemetry. No ectopy noted. Initial labs did reveal hyperkalemia of 6.1 although no significant EKG changes. Other labs with expected abnormalities in a patient with chronic kidney disease on hemodialysis. Mild troponin elevation more likely secondary to chronic kidney disease. Chest x-ray did have increased interstitial markings noted on the left, mildly asymmetric, however worse compared to prior. No evidence of focal infiltrate or consolidation. Patient was afebrile here throughout had no increased work of breathing, no hypoxia was noted. Case discussed with covering nephrology who recommended a dose of Veltassa here, with plan for admission and dialysis in the morning. Case discus sed with [facility] hospitalist team. Consultation(s): 2131: Discussed with Dr. Nowak. Recommends a dose of Veltassa here and she will plan on dialyzing him in the morning. If the patient still makes urine he could be given Lasix or Bumex additionally. 2224: Discussed with Dr. Lima, hospitalist ER Treatment Provided: See below Diagnostics Interpreted By Me: -ECG: Normal sinus at 71, first-degree AV block, normal axis, normal QRS and QTc, nonspecific ST/T wave changes, low voltage throughout -Cardiac Monitoring: An order was placed for continuous cardiac monitoring. The monitor shows a rate of 88 with normal sinus rhythm. -Laboratory studies: As stated above and show below. -Imaging studies: X-ray Chest: A single view study of the chest was reviewed and was negative for cardiomegaly, focal infiltrate, effusion, or wide mediastinum. Increased interstitial markings noted on the left, worse compared to prior Triage Nursing Note Reviewed Prior/Outside Records Reviewed -prior discharge summary reviewed Past Med/Surg History Medical History Acute respiratory failure with hypoxia AMI anterolateral wall 2016 Anemia Anxiety CAD (coronary artery disease) Chewing tobacco nicotine dependence CHF (congestive heart failure) Deep vein thrombosis Depression Diabetes mellitus type 1 INSULIN PUMP Diabetic peripheral neuropathy End-stage renal failure with renal transplant Fistula Fluid retention Gait abnormality Gout Grief reaction Hypoalbuminemia Inhibited sexual excitement Mitral regurgitation Non-ST elevation (NSTEMI) myocardial infarction DIANE (obstructive sleep apnea) Peripheral neuropathy Recurrent left pleural effusion RLS (restless legs syndrome) Sensory problems with limbs Sleep apnea CPAP STEMI (ST elevation myocardial infarction) Swelling of left hand Type 1 diabetes Vitamin D deficiency Warfarin anticoagulation Surgical History H/O eye surgery LEFT/RT LASER SURGERY History of below knee amputation LEFT REVISION (5 TOTAL) History of cardiac cath 2016 - [place] - [facility] - 2 STENTS - FOLLOWS W/ DR. JURADO History of heart artery stent 2016 (2 STENTS PLACED) AT [facility] History of right hip replacement 03/17/2019 [facility] History of total replacement of right hip Hx of BKA Kidney transplant recipient 2001 Kidney transplant recipient Status post left hip replacement Status post total hip replacement, left Family History Grandfather Family history of diabetes mellitus Other No family history of adverse response to anesthesia Social History Smoking Status: Never smoker Second Hand Exposure: No; Hx Alcohol Use: Yes Alcohol type: beer Alcohol Intake Frequency: 2-3 x/Week Hx Substance Use: No Preferred Language: Faroese Communication Ability: Impaired Communication Ability Comment: Stroke Furniture Builder Required: No Beliefs That Will Affect Care: None marital status: Current Living Situation: Spouse current occupational status: employed 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 - [employer] How many Children do You have: 2 How many Children do You have Comment: 1 is Feels Safe at Home: Yes Assistive Devices: None Allergies Allergies Allergy/AdvReac Type Severity Reaction Status Date / Time pork derived (porcine) Allergy Intermediate Hives with Verified 06/14/22 15:33 Pork Insulin lactose Allergy Mild Unknown Verified 06/14/22 15:33 sacubitril [From Entresto] AdvReac Severe Hypotension Verified 06/14/22 15:33 valsartan [From Entresto] AdvReac Severe Hypotension Verified 06/14/22 15:33 Home Meds Home Medications Medication Instructions Recorded Confirmed ezetimibe 10 mg tablet (Zetia) 10 mg PO DAILY 12/14/21 06/17/22 ferrous sulfate 325 mg (65 mg 325 mg PO BID 12/14/21 06/17/22 iron) tablet metoprolol succinate 25 mg 75 mg PO DAILY 12/14/21 06/17/22 tablet,extended release 24 hr sevelamer carbonate 800 mg tablet 1,600 mg PO TID 12/14/21 06/17/22 (Renvela) acetaminophen 325 mg tablet 650 mg PO Q6H PRN PAIN/FEVER 02/27/22 06/17/22 (Tylenol) atorvastatin 80 mg tablet 40 mg PO HS 02/27/22 06/17/22 colchicine 0.6 mg tablet 0.3 mg PO DAILY 02/27/22 06/17/22 ergocalciferol (vitamin D2) 1,250 1,250 mcg PO WK 02/27/22 06/17/22 mcg (50,000 unit) capsule (Vitamin D2) lidocaine-prilocaine 2.5 %-2.5 % 1 applic topical DIRECTED PRN 02/27/22 06/17/22 topical cream TO DIALYSIS ACCESS LINE losartan 25 mg tablet 25 mg PO DAILY 02/27/22 06/17/22 warfarin 2 mg tablet 2 - 4 mg PO DIRECTED 02/27/22 06/17/22 allopurinol 100 mg tablet 100 mg PO .3X WEEKLY 02/28/22 06/17/22 darbepoetin sarah in polysorbat 200 200 mcg subcut DIRECTED 04/05/22 06/17/22 mcg/mL in polysorbate injection omeprazole 20 mg capsule,delayed 20 mg PO BID 05/02/22 06/17/22 release calcium carbonate 200 mg calcium 500 mg PO TIDM 06/05/22 06/17/22 (500 mg) chewable tablet (Tums) furosemide 40 mg tablet (Lasix) 80 mg PO DAILY PRN .Wt gain 06/05/22 06/17/22 midodrine 5 mg tablet 5 mg PO TIDM 06/05/22 06/17/22 pregabalin 75 mg capsule 75 mg PO UD 06/14/22 06/17/22 calcitriol 0.25 mcg capsule 0.25 mcg PO 3XWK 06/17/22 06/17/22 Previous Rx's Medication Instructions Recorded clopidogrel 75 mg tablet (Plavix) 75 mg PO HS #30 tabs 03/20/21 insulin syringe-needle U-100 0.5 #200 ea 05/29/21 mL 29 gauge x 1/2" (BD Insulin Syringe) sertraline 100 mg tablet 100 mg PO HS #90 tabs 04/17/22 Dexcom G6 Transmitter #1 ea 04/25/22 (blood-glucose transmitter) Dexcom G6 Sensor (blood-glucose #9 ea 04/26/22 sensor) insulin aspart U-100 100 unit/mL 45 unit (0.45 mL) continuous 05/08/22 subcutaneous solution (Novolog subcutaneous infusion CONTINOUS U-100 Insulin aspart) #30 mL tamsulosin 0.4 mg capsule 0.4 mg PO DAILY #90 caps 05/20/22 collagenase clostridium histo. 250 1 applic topical DAILY 14 days #90 05/27/22 unit/gram topical ointment (Santyl) grams prednisone 5 mg tablet 5 mg PO HS #90 tabs 05/30/22 ropinirole 0.5 mg tablet 0.5 mg PO DAILY #90 tabs 06/12/22 Results & Data (ED) Vital Signs Vital Signs - 24 hr 06/17/22 17:06 06/17/22 20:25 06/17/22 21:00 Temperature 36.5 C Temperature Source Temporal Artery Scan Pulse Rate 71 72 Pulse Rate [Finger] 72 Pulse Rhythm Regular Respiratory Rate 20 22 22 Respiratory Effort / Characteristics Non-Labored Spontaneous Respiratory Depth Normal Blood Pressure 101/56 L 123/82 Blood Pressure [Left Arm] 126/76 Blood Pressure Mean 71 95 Blood Pressure Mean [Left Arm] 92 Pulse Oximetry 97 Oxygen Delivery Method Room Air Oxygen Flow Rate Sepsis Recent Fever Within 48 Hours No Sepsis New/Unexplained Change in Mental Status No Sepsis Action Taken by Nursing No Action Required 06/17/22 22:00 06/17/22 22:30 06/17/22 20:56 Temperature Temperature Source Pulse Rate 73 73 72 Pulse Rate [Finger] Pulse Rhythm Respiratory Rate 12 12 Respiratory Effort / Characteristics Respiratory Depth Blood Pressure 119/85 Blood Pressure [Left Arm] Blood Pressure Mean 96 Blood Pressure Mean [Left Arm] Pulse Oximetry 95 99 Oxygen Delivery Method Nasal Cannula Nasal Cannula Oxygen Flow Rate 1 1 Sepsis Recent Fever Within 48 Hours Sepsis New/Unexplained Change in Mental Status Sepsis Action Taken by Nursing Laboratory Data 06/17/22 18:14 06/17/22 18:15 Lab Results 06/17/22 06/17/22 Range/Units 18:14 18:15 WBC 12.14 H (4.8-10.8) K/ul RBC 3.19 L (4.70-6.10) M/uL Hgb 10.3 L (14.0-18.0) g/dl Hct 30.6 L (42.0-52.0) % MCV 95.9 (80.0-100.0) fL MCH 32.3 (25.0-34.0) pg MCHC 33.7 (32.0-36.0) g/dL RDW Std Deviation 83.3 H (36.4-46.3) fL RDW Coeff of Michelle 24.0 H (11.5-14.5) % Plt Count 143 (130-400) K/uL Neutrophils % (Manual) 70 % Lymphocytes % (Manual) 3 % Monocytes % (Manual) 4 % Eosinophils % (Manual) 4 % Basophils % (Manual) 3 % Neutrophils # (Manual) 8.50 H (1.40-6.50) K/uL Total Absolute Neuts 8.50 H (1.4-6.5) K/uL Lymphocytes # (Manual) 0.36 L (1.2-3.4) K/uL Total Abs Lymphocytes 2.43 (1.2-3.4) K/uL Monocytes # (Manual) 0.49 (0.11-0.59) K/uL Eosinophils # (Manual) 0.49 (0-0.50) K/uL Basophils # (Manual) 0.36 H (0-0.2) K/uL Large Granular Lymphs 17 % # Lrg Granular Lymphs 2.06 K/uL Polychromasia 1+ Anisocytosis Present Target Cells 2+ Echinocytes 1+ Sodium 135 L (136-145) mmol/L Potassium 6.1 H* (3.5-5.1) mmol/L Chloride 98 (98-107) mmol/L Carbon Dioxide 23 (21-32) mmol/L Anion Gap 14 H (3-11) BUN 75 H (6-23) mg/dl Creatinine 6.83 H* (0.6-1.4) mg/dl Est Cr Clr Drug Dosing 11.3 ml/min Est GFR ( Amer) 10.2 ml/min Est GFR (Non-Af Amer) 8.8 ml/min BUN/Creatinine Ratio 11.0 (10-20) Glucose 68 L (70-99(Fasting)) mg/dl Calcium 8.9 (8.6-10.3) mg/dl Total Bilirubin 8.1 H (0.2-1.0) mg/dl AST 28 (13-39) U/L ALT 23 (7-52) U/L Alkaline Phosphatase 522 H (34-104) U/L Troponin I High Sens 26.6 H (0-20) pg/ml Total Protein 7.1 (6.0-8.3) gm/dl Albumin 3.7 (3.4-5.0) gm/dl Globulin 3.4 (2.5-4.0) gm/dl Albumin/Globulin Ratio 1.1 (0.9-2) Administered Medications Discontinued Medications Albuterol (Albuterol 0.083% Nebu Soln 3 Ml Vial) 2.5 mg NEB NOW ONE; Protocol Stop: 06/17/22 23:36 Last Admin: 06/17/22 23:47 Dose: 2.5 mg Documented By: BRANDIE Patiromer (Patiromer Calcium Sorbitex 8.4 Gm Pack) 8.4 gm PO NOW STA Stop: 06/17/22 21:33 Last Admin: 06/17/22 22:47 Dose: 8.4 gm Documented By: BRANDIE Discharge Plan Visit Data Chief Complaint: Referred by Doctor Stated Complaint: REF BY DOC,SOB,FLUID OVERLOADED, ED Provider: Arcelia Cheney Discharge Problem: Dyspnea, CKD (chronic kidney disease) requiring chronic dialysis, Hyperkalemia, Viral URI Discharge Instructions Interventions: ED Discharge Assessment Last Done: 06/18/22 01:40
--- NOTE | 2022-06-17 22:48 | History & Physical Report ---
Date of Service June 17, 2022 Assessment & Plan (1) ESRD on dialysis: Plan: 46yo Male with PMH ESRD on dialysis schedule T th Sat, hyperkalemia, hyperparathyroidism, CHF with EF 35-40%, DM1, HTN, HLD, GERD, CAD, hx. CABG on warfarin, DIANE, chronic steroid use, recurrent left sided pleural effusion, Left BKA, right chronic foot ulcer here for increased wheezing SOB. Wheeze 2/2 fluid overload with history of ESRD on dialysis -CXR: worsened left sided pleural effusion -creat on admit 6.83 -nephrology consulted for dialysis -resp panel pending -mild WBC elevated 12.14 -trend BMP Hyperkalemia -EKG NSR no peaked T waves noted -K 6.1 -received patiromer in ED -recheck in AM DM1 with right foot ulcer -continue SSI -wound care consulted -consult pharmacy -hold insulin pump Hx Gout -cont allopurinol -cont colchicine Elevated liver enzymes -Alk Phos 522 -Total bili 8.1 -noted on last admission, continue to monitor ESRD -continue calcitriol -continue darbepoetin sarah -cont sevelamer -cont tamsulosin CHF hx. CABG, HTN -continue plavix -cont warfarin -cont losartan Hypotension during dialysis -cont midodrine DIANE -cont HS CPAP Kidney Transplant Failure -cont prednisone GERD -continue omeprazole HLD -cont ezetimibe RLS -cont ropinirole Depression -cont sertraline FENa: heart healthy DM1 dialysis Code Status: Full DVT PPX: warfarin Dispo: med/Tracy Talavera D.O. PGY 2, FCM (2) Wheeze: (3) Uncontrolled type 1 diabetes mellitus with diabetic neuropathy, with long- term current use of insulin: (4) Chronic steroid use: (5) Hyperparathyroidism: (6) Recurrent left pleural effusion: (7) S/P CABG (coronary artery bypass graft): (8) Warfarin anticoagulation: (9) Hyperlipidemia: (10) Hypertension: (11) GERD (gastroesophageal reflux disease): (12) CAD (coronary artery disease): (13) Hyperkalemia: History of Present Illness Chief Complaint: SOB needs Dialysis Primary Care Provider: Eli Costa MD 46yo Male with PMH ESRD on dialysis schedule T th Sat, hyperkalemia, hyperparathyroidism, CHF with EF 35-40%, DM1, HTN, HLD, GERD, CAD, hx. CABG on warfarin, DIANE, chronic steroid use, recurrent left sided pleural effusion, Left BKA, right chronic foot ulcer here for increased wheezing SOB. Patient states his dialysis schedule was recently changed from MW to Fri, last dialysis was friday. He noticed increased wheezing, which he normally feels every time he is fluid overloaded, so came to the ED for dialysis. Patient states he is compliant with a low salt diet, is using metamucil to help with BM, has not had any recent med changes. He denies fever N/V abd pain CP dizziness confusion. He is able to urinate, but not a lot. States ID is following for his right foot ulcers, was sent there by wound care. Was last in hospital 06/05-06/07 for abd liver labs. Allergies Allergy/AdvReac Type Severity Reaction Status Date / Time pork derived (porcine) Allergy Intermediate Hives with Verified 06/14/22 15:33 Pork Insulin lactose Allergy Mild Unknown Verified 06/14/22 15:33 sacubitril [From Entresto] AdvReac Severe Hypotension Verified 06/14/22 15:33 valsartan [From Entresto] AdvReac Severe Hypotension Verified 06/14/22 15:33 Home Medications Medication Instructions Recorded Confirmed Type clopidogrel 75 mg tablet (Plavix) 75 mg PO HS #30 tabs 03/20/21 06/17/22 Rx insulin syringe-needle U-100 0.5 #200 ea 05/29/21 06/17/22 Rx mL 29 gauge x 1/2" (BD Insulin Syringe) ezetimibe 10 mg tablet (Zetia) 10 mg PO DAILY 12/14/21 06/17/22 History ferrous sulfate 325 mg (65 mg 325 mg PO BID 12/14/21 06/17/22 History iron) tablet metoprolol succinate 25 mg 75 mg PO DAILY 12/14/21 06/17/22 History tablet,extended release 24 hr sevelamer carbonate 800 mg tablet 1,600 mg PO TID 12/14/21 06/17/22 History (Renvela) acetaminophen 325 mg tablet 650 mg PO Q6H PRN PAIN/FEVER 02/27/22 06/17/22 History (Tylenol) atorvastatin 80 mg tablet 40 mg PO HS 02/27/22 06/17/22 History colchicine 0.6 mg tablet 0.3 mg PO DAILY 02/27/22 06/17/22 History ergocalciferol (vitamin D2) 1,250 1,250 mcg PO WK 02/27/22 06/17/22 History mcg (50,000 unit) capsule (Vitamin D2) lidocaine-prilocaine 2.5 %-2.5 % 1 applic topical DIRECTED PRN 02/27/22 06/17/22 History topical cream TO DIALYSIS ACCESS LINE losartan 25 mg tablet 25 mg PO DAILY 02/27/22 06/17/22 History warfarin 2 mg tablet 2 - 4 mg PO DIRECTED 02/27/22 06/17/22 History allopurinol 100 mg tablet 100 mg PO .3X WEEKLY 02/28/22 06/17/22 History darbepoetin asrah in polysorbat 200 200 mcg subcut DIRECTED 04/05/22 06/17/22 History mcg/mL in polysorbate injection sertraline 100 mg tablet 100 mg PO HS #90 tabs 04/17/22 06/17/22 Rx Dexcom G6 Transmitter #1 ea 04/25/22 06/17/22 Rx (blood-glucose transmitter) Dexcom G6 Sensor (blood-glucose #9 ea 04/26/22 06/17/22 Rx sensor) omeprazole 20 mg capsule,delayed 20 mg PO BID 05/02/22 06/17/22 History release insulin aspart U-100 100 unit/mL 45 unit (0.45 mL) continuous 05/08/22 06/17/22 Rx subcutaneous solution (Novolog subcutaneous infusion CONTINOUS U-100 Insulin aspart) #30 mL tamsulosin 0.4 mg capsule 0.4 mg PO DAILY #90 caps 05/20/22 06/17/22 Rx collagenase clostridium histo. 250 1 applic topical DAILY 14 days #90 05/27/22 06/17/22 Rx unit/gram topical ointment (Santyl) grams prednisone 5 mg tablet 5 mg PO HS #90 tabs 05/30/22 06/17/22 Rx calcium carbonate 200 mg calcium 500 mg PO TIDM 06/05/22 06/17/22 History (500 mg) chewable tablet (Tums) furosemide 40 mg tablet (Lasix) 80 mg PO DAILY PRN .Wt gain 06/05/22 06/17/22 History midodrine 5 mg tablet 5 mg PO TIDM 06/05/22 06/17/22 History ropinirole 0.5 mg tablet 0.5 mg PO DAILY #90 tabs 06/12/22 06/17/22 Rx pregabalin 75 mg capsule 75 mg PO UD 06/14/22 06/17/22 History calcitriol 0.25 mcg capsule 0.25 mcg PO 3XWK 06/17/22 06/17/22 History Past Med/Surg History Medical History Acute respiratory failure with hypoxia AMI anterolateral wall 2016 Anemia Anxiety CAD (coronary artery disease) Chewing tobacco nicotine dependence CHF (congestive heart failure) Deep vein thrombosis Depression Diabetes mellitus type 1 INSULIN PUMP Diabetic peripheral neuropathy End-stage renal failure with renal transplant Fistula Fluid retention Gait abnormality Gout Grief reaction Hypoalbuminemia Inhibited sexual excitement Mitral regurgitation Non-ST elevation (NSTEMI) myocardial infarction DIANE (obstructive sleep apnea) Peripheral neuropathy Recurrent left pleural effusion RLS (restless legs syndrome) Sensory problems with limbs Sleep apnea CPAP STEMI (ST elevation myocardial infarction) Swelling of left hand Type 1 diabetes Vitamin D deficiency Warfarin anticoagulation Surgical History H/O eye surgery LEFT/RT LASER SURGERY History of below knee amputation LEFT REVISION (5 TOTAL) History of cardiac cath 2016 - [place] - [facility] - 2 STENTS - FOLLOWS W/ DR. JURADO History of heart artery stent 2016 (2 STENTS PLACED) AT [facility] History of right hip replacement 03/17/2019 [facility] History of total replacement of right hip Hx of BKA Kidney transplant recipient 2001 Kidney transplant recipient Status post left hip replacement Status post total hip replacement, left Family History Grandfather Family history of diabetes mellitus Other No family history of adverse response to anesthesia Social History Smoking Status: Never smoker Second Hand Exposure: No; Hx Alcohol Use: Yes Alcohol type: beer Alcohol Intake Frequency: 2-3 x/Week Hx Substance Use: No Preferred Language: Frisian Communication Ability: Effective Communication Ability Comment: Stroke Injection Molding Operator Required: No Beliefs That Will Affect Care: None marital status: Current Living Situation: Spouse current occupational status: employed 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 - [employer] How many Children do You have: 2 How many Children do You have Comment: 1 is Feels Safe at Home: Yes Assistive Devices: Cane, Prosthesis, Walker and Other Physical Exam Constitutional: well developed, well nourished, cooperative and comfortable Eyes: PERRL, conjunctivae normal, anicteric sclerae ENMT: external ear and nose normal, oropharynx normal Neck: trachea midline, no thyromegaly Respiratory: Auscultation: + diminished lung sounds (LLL) and + wheezes (throughout) Cardiovascular: Rate/Rhythm: regular rate and regular rhythm Extremities: + edema Gastrointestinal (Abdomen): Inspection/Auscultation: abdomen normal to inspection Percussion/Palpation: abdomen soft; abdomen nontender Musculoskeletal: L BKA Skin: chronic venous stasis of RLE with multiple ulcers noted Results & Data Results & Data Vital Signs (Past 12 Hours) Vital Signs Temp Pulse Pulse Resp BP BP Pulse Ox 06/17/22 20:25 72 22 126/76 06/17/22 17:06 36.5 C 71 20 101/56 L 97 O2 Del Method 06/17/22 20:25 06/17/22 17:06 Room Air Supervising Physician Co-Signing Physician Notes Patient seen and examined, chart reviewed, case discussed with Dr. Bermudez and I agree with the assessment and plan as above. In brief, patient is a pleasant 46yo male with ESRD, CHF, DM, HTN presenting with increased wheeze and SOB. Patient missed HD Afebrile, HD stable +wheezing bilaterally with bibasilar crackles +BS, soft, NT/ND s/p L BKA Labs and images reviewed Assessment/Plan Progressive SOB, suspect volume overload in setting of missed HD Enterovirus likely contributing as well -HD -Symptomatic management for enterovirus -Remainder as above Resident Activity Tracking Resident Involvement: Resident Care Provided Care Provided: Adult Hospital Medicine
[2022-06-17] MEDS ORDERED: PHARMACY GLYCEMIC MGMT CONSULT PRN (23:17)
[2022-06-17] MEDS ORDERED: ALBUTEROL 0.083% NEBU SOLN 3 ML VIAL NEB ONE (23:35)
[2022-06-18 00:06] LABS: Adenovirus PCR Not Detected (NotDetected); Bordetella parapertussis PCR Not Detected (NotDetected); Bordetella pertussis PCR Not Detected (NotDetected); Chlamydia pneumoniae PCR Not Detected (NotDetected); Coronavirus 229E PCR Not Detected (NotDetected); Coronavirus CoV-2 (COVID19)PCR Not Detected (NotDetected); Coronavirus HKU1 PCR Not Detected (NotDetected); Coronavirus NL63 PCR Not Detected (NotDetected); Coronavirus OC43PCR Not Detected (NotDetected); Human Metapneumovirus PCR Not Detected (NotDetected); Influenza A PCR Not Detected (NotDetected); Influenza B PCR Not Detected (NotDetected); Mycoplasma pneumoniae PCR Not Detected (NotDetected); Parainfluenza Virus 1 PCR Not Detected (NotDetected); Parainfluenza Virus 2 PCR Not Detected (NotDetected); Parainfluenza Virus 3 PCR Not Detected (NotDetected); Parainfluenza Virus 4 PCR Not Detected (NotDetected); Respiratory Syncytial VirusPCR Not Detected (NotDetected)
[2022-06-18 00:09] LABS: Rhinovirus/Enterovirus PCR DETECTED (NotDetected)
[2022-06-18] MEDS ORDERED: CARBOHYDRATES FOR HYPOGLYCEMIA PO PRN ×2 (01:30→01:41)
[2022-06-18] MEDS ORDERED: GLUCAGON FOR INJ 1 MG VIAL IM PRN (01:30)
[2022-06-18] MEDS ORDERED: INSULIN ASPART 100 UNITS/ML VIAL SC PRN ×2 (01:30→20:15)
[2022-06-18] MEDS ORDERED: GLUCOSE 10 TAB/TUBE PO PRN ×2 (01:30→01:41)
[2022-06-18] MEDS ORDERED: DEXTROSE 50% 50 ML SYRINGE IV PRN ×2 (01:30→01:41)
[2022-06-18] MEDS ORDERED: GLUCOSE 40% GEL 15 GM TUBE PO PRN ×2 (01:30→01:41)
[2022-06-18] MEDS ORDERED: LANTUS PER UNIT CHARGE SQ SCH (01:41)
[2022-06-18] MEDS ORDERED: GLUCAGON FOR INJ 1 MG VIAL SQ PRN (01:41)
[2022-06-18] MEDS ORDERED: POLYETHYLENE (MIRALAX) 17 GM PACK PO PRN (01:41)
[2022-06-18] MEDS ORDERED: DARBEPOETIN ALFA IN POLYSORBAT SQ SCH (01:41)
[2022-06-18] MEDS ORDERED: ACETAMINOPHEN 325 MG TAB PO PRN (01:41)
[2022-06-18] MEDS ORDERED: LIDOCAINE/PRILOCAINE 2.5% EA CRM EXT PRN (01:41)
[2022-06-18 05:12] LABS: Hematocrit (blood only) 30.4 % (42.0-52.0); Hemoglobin 10.2 g/dl (14.0-18.0); Mean Corpuscular Hgb Conc 33.6 g/dL (32.0-36.0); Mean Corpuscular Volume 95.3 fL (80.0-100.0); Platelet Count 141 K/uL (130-400); RDW Coefficient of Variation 23.8 % (11.5-14.5); RDW Standard Deviation 81.5 fL (36.4-46.3); Red Blood Count 3.19 M/uL (4.70-6.10); White Blood Count 11.04 K/ul (4.8-10.8)
[2022-06-18 05:24] LABS: Calcium 8.9 mg/dl (8.6-10.3); Creatinine Clr Calc Pharmacy 10.3 ml/min; Est GFR (African American) 9.1 ml/min; Est GFR (Non-African American) 7.8 ml/min; Potassium 6.5 mmol/L (3.5-5.1)
[2022-06-18 05:28] LABS: Prothrombin Time 20.1 Seconds (9.0-12.0)
--- NOTE | 2022-06-18 07:16 | XRay Report ---
XR chest 1V portable CLINICAL HISTORY: Shortness of breath, crackles L base TECHNIQUE: Single frontal radiograph of the chest was obtained. Comparison: Comparison is made to chest radiograph 06/05/2022 FINDINGS: Dual lumen catheter is again seen in the left. Cardiomegaly is noted. Prominence and cephalization of the vasculature is seen. A left pleural effusion cannot be excluded. Old healed left rib fractures a re incidentally noted. IMPRESSION: Cardiomegaly and mild pulmonary edema. ACT 112: Negative or not required by law. Electronically signed by: Javier Khan M.D. 06/18/2022 7:13 AM
[2022-06-18] MEDS ORDERED: INSULIN, Rapid-Acting PUMP SCH (07:30)
[2022-06-18] MEDS ORDERED: INSULIN ASPART PER UNIT CHARGE SC SCH (07:30)
[2022-06-18] MEDS ORDERED: COLCHICINE 0.6 MG TAB PO SCH (09:00)
[2022-06-18] MEDS ORDERED: CALCITRIOL 0.25 MCG CAPSULE PO SCH (09:00)
[2022-06-18] MEDS: CALCIUM CARBONATE 500 MG CHEWABLE TAB PO SCH ×2 (09:04→20:00)
[2022-06-18] MEDS: MIDODRINE HCL 2.5 MG TAB PO SCH (09:04)
[2022-06-18] MEDS: SEVELAMER HCL 800 MG TABLET PO SCH (09:05)
[2022-06-18] MEDS: EZETIMIBE 10 MG TABLET PO SCH (09:06)
[2022-06-18] MEDS: FERROUS SULFATE 325 MG TAB PO SCH ×2 (09:06→20:35)
[2022-06-18] MEDS: LOSARTAN POTASSIUM 25 MG TAB PO SCH (09:06)
[2022-06-18] MEDS: TAMSULOSIN HCL 0.4 MG CAP PO SCH (09:07)
[2022-06-18] MEDS: METOPROLOL SUCC 25MG EXT REL TAB PO SCH (09:07)
[2022-06-18] MEDS: PANTOprazole 40 MG TAB PO SCH ×2 (09:07→20:34)
--- NOTE | 2022-06-18 09:17 | Hospitalist Progress Note ---
Date of Service June 18, 2022 Assessment & Plan (1) ESRD on dialysis: Plan: 46yo Male with PMH ESRD on dialysis schedule T Sat, hyperkalemia, hyperparathyroidism, CHF with EF 35-40%, DM1, HTN, HLD, GERD, CAD, hx. CABG on warfarin, DIANE, chronic steroid use, recurrent left sided pleural effusion, Left BKA, right chronic foot ulcer here for increased wheezing SOB. Patient was ill at home with upper respiratory infection and missed dialysis session on Friday subsequently could not make it till is a session today 06/18/2022 acute reparatory failure due to pulmonary vascular congestion from acute diastolic heart failure from esrd -nephrology consulted for dialysis -resp panel shows rhinovirus no pneumonia seen on CXR, supportive care does have influence on acute respiratry failure acute elevated troponin, felt to be demand ischemia acute on chronic kidney disease Hyperkalemia, on dialysis -EKG NSR no peaked T waves noted -K 6.1 -received patiromer in ED continue calcitriol -continue darbepoetin sarah -cont sevelamer -cont tamsulosin DM1 unclear if stable with right foot ulcer acute hypoglycemnia -continue SSI -wound care consulted -consult pharmacy -hold insulin pump Hx Gout chronic and stable -cont allopurinol -cont colchicine Chronic undetermined significant elevated liver enzymes, markedly elevated bili without obstruction on previous MRCP eval GI medicine working up for inflmaatory liver disease -Alk Phos 522 -Total bili 8.1 - CHF hx. CABG, HTN -continue plavix -cont warfarin -cont losartan Hypotension during dialysis -cont midodrine DIANE -cont HS CPAP Kidney Transplant Failure -cont prednisone GERD -continue omeprazole HLD -cont ezetimibe RLS -cont ropinirole Depression -cont sertraline FENa: heart healthy DM1 dialysis Code Status: Full DVT PPX: warfarin Dispo: med/tele (2) Wheeze: (3) Uncontrolled type 1 diabetes mellitus with diabetic neuropathy, with long- term current use of insulin: (4) Chronic steroid use: (5) Hyperparathyroidism: (6) Recurrent left pleural effusion: (7) S/P CABG (coronary artery bypass graft): (8) Warfarin anticoagulation: (9) Hyperlipidemia: (10) Hypertension: (11) GERD (gastroesophageal reflux disease): (12) CAD (coronary artery disease): (13) Hyperkalemia: Admission and Anticipated Discharge Date Admission Date: June 17, 2022 Subjective Patient was seen in company of his after dialysis session. He is feeling markedly better he is having less shortness of breath and no coughing he however is markedly fatigued Physical Exam Physical Exam: Awake and alert appropriate no particular coughing no respiratory distress no accessory muscle use Results & Data Results & Data Vital Signs (Past 12 Hours) Vital Signs Temp Pulse Pulse Resp BP Pulse Ox Pulse Ox 06/18/22 08:00 73 23 100 06/18/22 08:00 115/70 06/18/22 07:59 112/75 06/18/22 07:59 74 27 H 06/18/22 07:00 80 23 06/18/22 06:00 75 19 06/18/22 05:00 76 25 H 06/18/22 04:00 75 22 06/18/22 03:00 74 21 96 06/18/22 03:00 130/83 06/18/22 02:17 80 20 95 06/18/22 08:18 98.1 F 06/18/22 07:38 98.1 F 74 16 06/18/22 07:10 78 06/18/22 04:00 75 06/18/22 02:42 98 06/18/22 02:00 80 14 116/74 96 06/18/22 00:00 77 21 100/68 97 06/17/22 23:00 72 20 117/83 97 06/17/22 23:37 98 06/17/22 22:30 73 12 99 06/17/22 22:00 73 12 119/85 95 O2 Del Method O2 Del Method O2 Flow Rate 06/18/22 08:00 06/18/22 08:00 06/18/22 07:59 06/18/22 07:59 06/18/22 07:00 06/18/22 06:00 06/18/22 05:00 06/18/22 04:00 06/18/22 03:00 06/18/22 03:00 06/18/22 02:17 06/18/22 08:18 06/18/22 07:38 06/18/22 07:10 06/18/22 04:00 06/18/22 02:42 Room Air 06/18/22 02:00 Room Air 06/18/22 00:00 Room Air 06/17/22 23:00 06/17/22 23:37 Room Air 06/17/22 22:30 Nasal Cannula 1 06/17/22 22:00 Nasal Cannula 1 Laboratory Results Reviewed CBC Reviewed coagulation studies Reviewed chemistry panel PG Care Time/CCT Total # of Minutes Spent Total Time Spent with Patient: Total time spent is greater than 50% in coordination of care (as documented) at patient's floor/unit and/or counseling patient: Coding Level of Care Code 51472 SUB INP/OBS CARE 3/50MIN Diagnoses ESRD on dialysis N18.6; Z99.2 Wheeze R06.2 Uncontrolled type 1 diabetes mellitus with diabetic neuropathy, with long-term current use of insulin E10.40; E10.65 Chronic steroid use Hyperparathyroidism E21.3 Recurrent left pleural effusion J90 S/P CABG (coronary artery bypass graft) Z95.1 Warfarin anticoagulation Z79.01 Hyperlipidemia E78.5 Hypertension I10 GERD (gastroesophageal reflux disease) K21.9 CAD (coronary artery disease) I25.10 Hyperkalemia E87.5
[2022-06-18] MEDS ORDERED: PHARMACY GLYCEMIC MGMT CONSULT PRN (09:58)
--- NOTE | 2022-06-18 10:46 | Electrocardiogram Report ---
Test Reason : Blood Pressure : / mmHG Vent. Rate : 071 BPM Atrial Rate : 071 BPM P-R Int : 204 ms QRS Dur : 096 ms QT Int : 406 ms P-R-T Axes : 033 045 083 degrees QTc Int : 441 ms Normal sinus rhythm Low voltage QRS Possible Anterolateral infarct (cited on or before 02-DEC-2019) Abnormal ECG When compared with ECG of 05-JUN-2022 19:00, Nonspecific T wave abnormality no longer evident in Inferior leads Nonspecific T wave abnormality, improved in Lateral leads Confirmed by Delio Otoole ([id number]) on 06/18/2022 10:46:33 AM Referred By: Piper Donis Confirmed By:Angel Otoole
--- NOTE | 2022-06-18 13:54 | Nephrology Consultation ---
Date of Consultation June 18, 2022 Assessment & Plan (1) ESRD on dialysis: (2) Hyperkalemia: (3) Hypertension: (4) Pleural effusion: Plan ESRD on hemodialysis admitted with volume overload, hyperkalemia after missed dialysis. Potassium initially was 6.1 which worsened to 6.4 this morning. --Dialysis this morning for 4 hours UF as tolerated to reach dry weight. --left arm nephrology precaution, Dose medications for EGFR less than 10. --continue phosphate binder with meals and renal vitamins. Thank you for allowing me to participate in your patient's care. It was a pleasure to see Lucius. History of Present Illness Reason for Consultation: ESRD, missed dialysis, volume overload and hyperkalemia. Attending Physician: Jn Corado MD History of Present Illness Mr. Constantine aDlton is a 46 year-old male with PMH of ESRD attributed to DKD and failed kidney transplant, admitted with shortness of breath, generalized weakness, volume overload and hyperkalemia after missed dialysis. nephrology consult was requested for management of fluid overload and hyperkalemia and arrange for urgent dialysis. EMR records reviewed in detail during patient's visit. Lucius has end-stage renal disease, has been on dialysis Friday, Friday, Friday via right brachiocephalic AV fistula, under care of Dr. Amador. He had last dialysis last Friday and had full treatment. Because of some changes seen staff at dialysis unit and schedule change mics dialysis schedule was changed to Friday. He was supposed to go for dialysis Friday however he was not feeling well with some abdominal pain and diarrhea and missed dialysis Friday. However, over the weekend he became progressively short of breath and yesterday he presented to ER with progressive shortness of breath. On admission lab showed hyperkalemia, potassium was 6.1, without any acute EKG changes. troponin was slightly elevated but stayed stable. Not have any chest pain, palpitation. Chest x-ray showed mild pulmonary vascular congestion and small left pleural effusion. He was given 1 dose of Veltassa overnight however this morning potassium was further elevated at 6.4. History of diabetic nephropathy and progressed to to ESKD in 2000 and was started on IHD. In 2001 he received a LRRT from his mother.He suffered an acute rejection episode in 2002 that was managed w/ steroid therapy. Unfortunately he then suffered a slow progressive decline in kidney function. In 01/21, Mr. Dalton underwent L RC AVF creation and insertion of PD catheter. He started NCCPD 03/24. Unfortunately he did not tolerate peritoneal dialysis due to recurrent hyperglycemia and quickly transitioned to IHD.In June 2021, he presented to [facility] with chest pain. Cardiac catheterization revealed severe multivessel disease. He had robotic BA to LAD 11/22 at [facility], 12/22 BA occluded patient underwent BA atherectomy and stent x2 at [facility]. Following the minithoracotomy, he developed a recurrent left sided pleural effusion. Last thoracentesis was in April. He continues to feel short of breath this morning but otherwise stable. Allergies Allergy/AdvReac Type Severity Reaction Status Date / Time pork derived (porcine) Allergy Intermediate Hives with Verified 06/14/22 15:33 Pork Insulin lactose Allergy Mild Unknown Verified 06/14/22 15:33 sacubitril [From Entresto] AdvReac Severe Hypotension Verified 06/14/22 15:33 valsartan [From Entresto] AdvReac Severe Hypotension Verified 06/14/22 15:33 Home Medications Medication Instructions Recorded Confirmed Type clopidogrel 75 mg tablet (Plavix) 75 mg PO HS #30 tabs 03/20/21 06/17/22 Rx insulin syringe-needle U-100 0.5 #200 ea 05/29/21 06/17/22 Rx mL 29 gauge x 1/2" (BD Insulin Syringe) ezetimibe 10 mg tablet (Zetia) 10 mg PO DAILY 12/14/21 06/17/22 History ferrous sulfate 325 mg (65 mg 325 mg PO BID 12/14/21 06/17/22 History iron) tablet metoprolol succinate 25 mg 75 mg PO DAILY 12/14/21 06/17/22 History tablet,extended release 24 hr sevelamer carbonate 800 mg tablet 1,600 mg PO TID 12/14/21 06/17/22 History (Renvela) acetaminophen 325 mg tablet 650 mg PO Q6H PRN PAIN/FEVER 02/27/22 06/17/22 History (Tylenol) atorvastatin 80 mg tablet 40 mg PO HS 02/27/22 06/17/22 History colchicine 0.6 mg tablet 0.3 mg PO DAILY 02/27/22 06/17/22 History ergocalciferol (vitamin D2) 1,250 1,250 mcg PO WK 02/27/22 06/17/22 History mcg (50,000 unit) capsule (Vitamin D2) lidocaine-prilocaine 2.5 %-2.5 % 1 applic topical DIRECTED PRN 02/27/22 06/17/22 History topical cream TO DIALYSIS ACCESS LINE losartan 25 mg tablet 25 mg PO DAILY 02/27/22 06/17/22 History warfarin 2 mg tablet 2 - 4 mg PO DIRECTED 02/27/22 06/17/22 History allopurinol 100 mg tablet 100 mg PO .3X WEEKLY 02/28/22 06/17/22 History darbepoetin sarah in polysorbat 200 200 mcg subcut DIRECTED 04/05/22 06/17/22 History mcg/mL in polysorbate injection sertraline 100 mg tablet 100 mg PO HS #90 tabs 04/17/22 06/17/22 Rx Dexcom G6 Transmitter #1 ea 04/25/22 06/17/22 Rx (blood-glucose transmitter) Dexcom G6 Sensor (blood-glucose #9 ea 04/26/22 06/17/22 Rx sensor) omeprazole 20 mg capsule,delayed 20 mg PO BID 05/02/22 06/17/22 History release insulin aspart U-100 100 unit/mL 45 unit (0.45 mL) continuous 05/08/22 06/17/22 Rx subcutaneous solution (Novolog subcutaneous infusion CONTINOUS U-100 Insulin aspart) #30 mL tamsulosin 0.4 mg capsule 0.4 mg PO DAILY #90 caps 05/20/22 06/17/22 Rx collagenase clostridium histo. 250 1 applic topical DAILY 14 days #90 05/27/22 06/17/22 Rx unit/gram topical ointment (Santyl) grams prednisone 5 mg tablet 5 mg PO HS #90 tabs 05/30/22 06/17/22 Rx calcium carbonate 200 mg calcium 500 mg PO TIDM 06/05/22 06/17/22 History (500 mg) chewable tablet (Tums) furosemide 40 mg tablet (Lasix) 80 mg PO DAILY PRN .Wt gain 06/05/22 06/17/22 History midodrine 5 mg tablet 5 mg PO TIDM 06/05/22 06/17/22 History ropinirole 0.5 mg tablet 0.5 mg PO DAILY #90 tabs 06/12/22 06/17/22 Rx pregabalin 75 mg capsule 75 mg PO UD 06/14/22 06/17/22 History calcitriol 0.25 mcg capsule 0.25 mcg PO 3XWK 06/17/22 06/17/22 History Patient History Medical History Acute respiratory failure with hypoxia AMI anterolateral wall 2016 Anemia Anxiety CAD (coronary artery disease) Chewing tobacco nicotine dependence CHF (congestive heart failure) Deep vein thrombosis Depression Diabetes mellitus type 1 INSULIN PUMP Diabetic peripheral neuropathy End-stage renal failure with renal transplant Fistula Fluid retention Gait abnormality Gout Grief reaction Hypoalbuminemia Inhibited sexual excitement Mitral regurgitation Non-ST elevation (NSTEMI) myocardial infarction DIANE (obstructive sleep apnea) Peripheral neuropathy Recurrent left pleural effusion RLS (restless legs syndrome) Sensory problems with limbs Sleep apnea CPAP STEMI (ST elevation myocardial infarction) Swelling of left hand Type 1 diabetes Vitamin D deficiency Warfarin anticoagulation Surgical History H/O eye surgery LEFT/RT LASER SURGERY History of below knee amputation LEFT REVISION (5 TOTAL) History of cardiac cath 2016 - [place] - [facility] - 2 STENTS - FOLLOWS W/ DR. JURADO History of heart artery stent 2016 (2 STENTS PLACED) AT [facility] History of right hip replacement 03/17/2019 [facility] History of total replacement of right hip Hx of BKA Kidney transplant recipient 2001 Kidney transplant recipient Status post left hip replacement Status post total hip replacement, left Family History Grandfather Family history of diabetes mellitus Other No family history of adverse response to anesthesia Social History Smoking Status: Never smoker Second Hand Exposure: No; Hx Alcohol Use: Yes Alcohol type: beer Alcohol Intake Frequency: 2-3 x/Week Hx Substance Use: No Preferred Language: Lithuanian Communication Ability: Effective Communication Ability Comment: Stroke Gate Person Required: No Beliefs That Will Affect Care: None marital status: Current Living Situation: Spouse current occupational status: employed 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 Physical Exam Constitutional: WD/WN, vitals as above no acute distress Eyes: + anicteric sclerae Neck: normal visual inspection Respiratory: no respiratory distress Auscultation: + crackles Cardiovascular: Rate/Rhythm: regular rate and regular rhythm Heart Sounds: normal S1 and normal S2 Extremities: no edema Gastrointestinal (Abdomen): Inspection/Auscultation: abdomen normal to inspection Musculoskeletal: left BKA. Skin: no rashes Neurologic: no focal motor deficits Psychiatric: Orientation: alert and oriented x 3 Affect: euthymic affect Results & Data Vital Signs (Past 12 Hours) Vital Signs Temp Pulse Pulse Pulse Resp BP Pulse Ox 06/18/22 13:30 84 137/81 06/18/22 13:00 84 135/92 06/18/22 12:30 84 141/96 H 06/18/22 12:00 82 132/84 06/18/22 11:30 79 123/89 06/18/22 11:00 76 119/77 06/18/22 10:30 72 110/82 06/18/22 10:00 66 114/77 06/18/22 09:47 36.6 C 69 06/18/22 09:04 98 06/18/22 09:03 102/72 06/18/22 08:30 72 22 06/18/22 08:00 73 23 100 06/18/22 08:00 115/70 06/18/22 07:59 112/75 06/18/22 07:59 74 27 H 06/18/22 07:00 80 23 06/18/22 06:00 75 19 06/18/22 05:00 76 25 H 06/18/22 04:00 75 22 06/18/22 03:00 74 21 96 06/18/22 03:00 130/83 06/18/22 02:17 80 20 95 06/18/22 08:18 36.7 C 06/18/22 07:38 36.7 C 74 16 06/18/22 07:10 78 06/18/22 04:00 75 06/18/22 02:42 06/18/22 02:00 80 14 116/74 96 Pulse Ox O2 Del Method O2 Del Method 06/18/22 13:30 06/18/22 13:00 06/18/22 12:30 06/18/22 12:00 06/18/22 11:30 06/18/22 11:00 06/18/22 10:30 06/18/22 10:00 06/18/22 09:47 06/18/22 09:04 06/18/22 09:03 06/18/22 08:30 06/18/22 08:00 06/18/22 08:00 06/18/22 07:59 06/18/22 07:59 06/18/22 07:00 06/18/22 06:00 06/18/22 05:00 06/18/22 04:00 06/18/22 03:00 06/18/22 03:00 06/18/22 02:17 06/18/22 08:18 06/18/22 07:38 06/18/22 07:10 06/18/22 04:00 06/18/22 02:42 98 Room Air 06/18/22 02:00 Room Air PG Care Time/CCT Total # of Minutes Spent Total Time Spent with Patient: Total time spent is greater than 50% in coordination of care (as documented) at patient's floor/unit and/or counseling patient: Coding Level of Care Code 20645 IN/OBS CONSULT LVL 5,80M Diagnoses ESRD on dialysis N18.6; Z99.2 Hyperkalemia E87.5 Hypertension I10 Pleural effusion J90
--- NOTE | 2022-06-18 15:23 | Pharmacy Report ---
Pharmacy Glycemic Short Note 2 - Date of Service June 18, 2022 - Glycemic Short BSG Results (Last 24 hours): 06/17/22 06/18/22 06/18/22 18:15 04:44 06:53 Glucose 68 L 44 L* POC Glucose 46 L* 06/18/22 06/18/22 06/18/22 07:19 08:00 14:38 Glucose POC Glucose 66 L* 151 H 86 OUTPATIENT ANTIDIABETIC REGIMEN per wellness educator Note, 06/06/22 "Novolog via Tandem T-slim insulin pump (in control IQ mode): Basal: 5354-6263: 0.25 units/hr 8634-5560: 0.45 units/hr 1838-3229: 0.25 units/hr Total: 9 units Bolus: *manually boluses for meals/BG values Meals: 1 unit for every ~25-30 grams carb Blood Sugars: 1 unit for every 50-60 pts Target: 110 TDD: 37.65 units Basal: 10.42 units (27.6%) Bolus: 7.57 units (20.1%) Automatic Correctional Bolus: 19.66 units (52.2%)" ASSESSMENT: * 46 year old male with type 1 diabetes admitted today for difficulty breathing,requiring dialysis after missing a session outpatient. * Fasting BSG very low today at 46 mg/dL. Hypoglycemia was treated, and patient reached BSG of 151 mg/dL at 0800. Following dialysis, BSG was 86 mg/dL at ~1430. * The patient has not received any insulin as of yet today. Patient's insulin pump was already disconnected upon arrived to the floor from ED. * Patient will require a dose of Lantus this evening - to be evaluated tonight. * NovoLog was started at 45-15 in previous admission this month. The patient did experience some hyperglycemia on this regimen, however given hypoglycemia thus far into admission, these parameters will be used as a starting point. * Home prednisone 5mg daily continued inpatient. * HbA1c 6.3% 06/06/22. May not provide accurate assessment of glycemic control in scenario of IHD patient; will not order repeat A1c with AM labs. PLAN FOR INPATIENT GLYCEMIC CONTROL: * Hold outpatient oral diabetes medications * Basal insulin * Lantus - to be evaluated tonight pending eval of dinner/HS BSG's * Bolus insulin * NovoLog per scale ACHS or Q6hrs while NPO * Goal Range: Low 120 mg/dL - High 150 mg/dL * Correction Factor: 45 mg/dL/unit * Nutritional / Prandial insulin per carb ratio of 1 unit per 15 grams CHO consumed
[2022-06-18] MEDS: WARFARIN SOD 2 MG TAB PO SCH (15:59)
[2022-06-18] MEDS: COLLAGENASE OINT 30 GM TUBE TOP SCH (16:00)
--- NOTE | 2022-06-18 19:53 | Billing Data ---
Date of Service June 17, 2022 Coding Level of Care Code 32315 INT INP/OBS CARE
--- NOTE | 2022-06-18 20:14 | XRay Report ---
XR chest 1V portable CLINICAL HISTORY: Left pleural effusion. COMPARISON STUDY: Chest radiograph June 17, 2022. Chest CT February 27, 2022. FINDINGS: A right internal jugular central venous catheter remains in place. There is no pneumothorax . A moderate to large left pleural effusion has increased in size since chest radiograph of June 17, 2022. Pulmonary edema has progressed. Cardiomegaly is again noted. IMPRESSION: 1. Significant increase in size of a moderate to large left pleural effusion. No pneumothorax. 2. Cardiomegaly. Increase in pulmonary edema. ACT 112: Negative or not required by law. Electronically signed by: Carl Terry M.D. 06/18/2022 8:12 PM
[2022-06-18] MEDS: INSULIN, Rapid-Acting PUMP SCH (20:34)
[2022-06-18] MEDS ORDERED: allopurinoL 100 MG TAB PO SCH (21:00)
[2022-06-18] MEDS ORDERED: CLOPIDOGREL BISULFATE 75 MG TAB PO SCH (21:00)
[2022-06-18] MEDS ORDERED: PREGABALIN 75 MG CAP PO SCH (21:00)
[2022-06-18] MEDS ORDERED: rOPINIRole HCL 0.25 MG TABLET PO SCH (21:00)
[2022-06-18] MEDS ORDERED: predniSONE 5 MG TAB PO SCH (21:00)
[2022-06-18] MEDS ORDERED: ATORVASTATIN 40 MG TAB PO SCH (21:00)
[2022-06-18] MEDS ORDERED: SERTRALINE HCL 100 MG TABLET PO SCH (21:00)
[2022-06-19] MEDS ORDERED: ALBUT/IPRATROP 3MG/0.5MG NEB 3 ML VIAL NEB STA (06:45)
[2022-06-19] MEDS: PREGABALIN 75 MG CAP PO SCH ×2 (07:08→09:58)
[2022-06-19] MEDS: MIDODRINE HCL 2.5 MG TAB PO SCH ×4 (07:09→18:02)
[2022-06-19] MEDS: CALCIUM CARBONATE 500 MG CHEWABLE TAB PO SCH ×2 (07:09→11:12)
[2022-06-19] MEDS: SEVELAMER HCL 800 MG TABLET PO SCH ×4 (07:09→18:03)
[2022-06-19 08:37] LABS: Prothrombin Time 20.3 Seconds (9.0-12.0)
[2022-06-19 09:03] LABS: Albumin Level 3.5 gm/dl (3.4-5.0); BUN Creatinine Ratio 10.2 (10-20); Calcium 8.7 mg/dl (8.6-10.3); Creatinine Clr Calc Pharmacy 17.1 ml/min; Est GFR (African American) 16.8 ml/min; Est GFR (Non-African American) 14.5 ml/min; Phosphorus 5.7 mg/dl (2.5-4.9)
[2022-06-19] MEDS: LOSARTAN POTASSIUM 25 MG TAB PO SCH (09:57)
[2022-06-19] MEDS: EZETIMIBE 10 MG TABLET PO SCH (09:57)
[2022-06-19] MEDS: METOPROLOL SUCC 25MG EXT REL TAB PO SCH (09:58)
[2022-06-19] MEDS: PANTOprazole 40 MG TAB PO SCH (09:58)
[2022-06-19] MEDS: TAMSULOSIN HCL 0.4 MG CAP PO SCH (09:58)
[2022-06-19] MEDS: COLLAGENASE OINT 30 GM TUBE TOP SCH (10:27)
--- NOTE | 2022-06-19 10:31 | Nephrology Progress Note ---
Date of Service June 19, 2022 Assessment & Plan (1) ESRD on dialysis: (2) Hyperkalemia: (3) Hypertension: (4) Pleural effusion: Plan ESRD on hemodialysis admitted with volume overload, hyperkalemia after missed dialysis. Potassium initially was 6.1 which worsened to 6.4 this morning. Had dialysis yesterday, had more than 3 L UF but overall feels poorly. Chest x- ray yesterday showed significant increase in size in left-sided moderate to large pleural effusion. --will plan for extra dialysis treatment today as potassium remained elevated, will try to do 2 L UF. He may need thoracentesis again for recurrent the large left-sided pleural effusion. --left arm nephrology precaution, dose medications for EGFR less than 10. --continue phosphate binder with meals and renal vitamins. Admission and Anticipated Discharge Date Admission Date: June 17, 2022 Viridiana Kan was seen this morning. Overall he seems comfortable however he just does not feel like himself. denies overt shortness of breath but feels somewhat tightness in his chest and wheezing and breathing treatment seem to have helped. blood pressure relatively low. Potassium remains elevated at 6 this morning despite getting full dialysis treatment yesterday. Review of Systems Review of Systems: detailed review of system was done and pertinent positives and negatives are mentioned above. Physical Exam Constitutional: WD/WN, vitals as above no acute distress Eyes: + anicteric sclerae Neck: normal visual inspection Respiratory: no respiratory distress Auscultation: + diminished lung sounds, + crackles and + wheezes Cardiovascular: Rate/Rhythm: regular rate and regular rhythm Heart Sounds: normal S1 and normal S2 Extremities: no edema Skin: no rashes Neurologic: no focal motor deficits Psychiatric: Orientation: alert and oriented x 3 Affect: euthymic affect Results & Data Vital Signs (Past 12 Hours) Vital Signs Temp Pulse Pulse Resp BP Pulse Ox O2 Del Method 06/19/22 08:14 72 18 100 Room Air 06/19/22 07:29 73 06/19/22 07:00 36.6 C 74 18 101/66 97 Room Air 06/19/22 03:00 36.5 C 76 18 113/68 92 Room Air 06/18/22 23:38 79 06/18/22 22:55 93 Room Air PG Care Time/CCT Total # of Minutes Spent Total Time Spent with Patient: Total time spent is greater than 50% in coordination of care (as documented) at patient's floor/unit and/or counseling patient: Coding Level of Care Code 01098 SUB INP/OBS CARE 350MIN Diagnoses ESRD on dialysis N18.6; Z99.2 Hyperkalemia E87.5 Hypertension I10 Pleural effusion J90
[2022-06-19] MEDS ORDERED: NEPHROCAPS PO SCH (10:45)
[2022-06-19] MEDS: INSULIN, Rapid-Acting PUMP SCH ×3 (11:02→18:05)
[2022-06-19] MEDS: FERROUS SULFATE 325 MG TAB PO SCH (11:03)
[2022-06-19] MEDS: INSULIN ASPART PER UNIT CHARGE SC SCH ×3 (12:04→16:41)
--- NOTE | 2022-06-19 12:35 | XRay Report ---
XR chest 1V not portable HISTORY: Status post left-sided thoracentesis. COMPARISON: Chest 06/18/2022. FINDINGS: Significant decrease in size and in the now trace left pleural effusion status post thorace ntesis. No pneumothorax. The heart remains enlarged. Improved aeration within the left lung base. Rig ht dual-lumen catheter terminates in the distal SVC. This remains unchanged. There is mild central pu lmonary vascular congestion without overt edema. Old, healed left-sided rib fractures again noted. IMPRESSION: Significant decrease in size and in the now trace left pleural effusion status post thoracentesis. No pneumothorax. ACT 112: Negative or not required by law. Electronically signed by: Romario Carpenter M.D. 06/19/2022 12:34 PM
--- NOTE | 2022-06-19 12:37 | Ultrasound Report ---
Ultrasound-guided left thoracentesis INDICATION: Left pleural effusion PROCEDURE: Procedure and risks were explained. Informed consent was obtained. A final timeout was com pleted. The left lateral thorax was prepped and draped in sterile fashion. 1% buffered lidocaine was utilized for skin anesthesia. Utilizing ultrasound guidance, a 5 Divehi safety centesis catheter was advanced into the left pleural effusion. Ultrasound image was obtained. 1500 mL of gold fluid was removed and discarded. The cathet er was removed and Band-Aid applied. The patient tolerated the procedure well. Post procedure chest x -ray demonstrates no pneumothorax. IMPRESSION: Ultrasound-guided thoracentesis as above. Performed, dictated, and signed by Delmar Rodriguez PA-C; to be co-signed by Dr. Romario Carpenter. Electronically signed by: Romario Carpenter M.D. 06/19/2022 12:37 PM
[2022-06-19] MEDS: WARFARIN SOD 2 MG TAB PO SCH (16:57)
--- NOTE | 2022-06-19 17:22 | Discharge Summary ---
Date of Service June 19, 2022 Admission HPI Per Admitting Provider 46yo Male with PMH ESRD on dialysis schedule T th Sat, hyperkalemia, hyperparathyroidism, CHF with EF 35-40%, DM1, HTN, HLD, GERD, CAD, hx. CABG on warfarin, DIANE, chronic steroid use, recurrent left sided pleural effusion, Left BKA, right chronic foot ulcer here for increased wheezing SOB. Patient states his dialysis schedule was recently changed from MWF to T Th Sat, last dialysis was friday. He noticed increased wheezing, which he normally feels every time he is fluid overloaded, so came to the ED for dialysis. Patient states he is compliant with a low salt diet, is using metamucil to help with BM, has not had any recent med changes. He denies fever N/V abd pain CP dizziness confusion. He is able to urinate, but not a lot. States ID is following for his right foot ulcers, was sent there by wound care. Was last in hospital 06/05-06/07 for abd liver labs. Principal Diagnosis acute respiratory faliure from acute on chronic diastolic heart failure from ESRD complicated by Rhinovirus and pleural effusion Discharge Exam pt with left lung clearing after thoracentesis Discharge Data Allergies Allergy/AdvReac Type Severity Reaction Status Date / Time pork derived (porcine) Allergy Intermediate Hives with Verified 06/14/22 15:33 Pork Insulin lactose Allergy Mild Unknown Verified 06/14/22 15:33 sacubitril [From Entresto] AdvReac Severe Hypotension Verified 06/14/22 15:33 valsartan [From Entresto] AdvReac Severe Hypotension Verified 06/14/22 15:33 Consultations 06/17/22 23:32 ED Decision to Admit Stat 06/18/22 01:41 Consult Nephrology Routine Ordered Studies 06/19/22 11:29 IR thoracentesis w/tube US Stat Hospital Course (1) ESRD on dialysis: 46yo Male with PMH ESRD on dialysis schedule T th Sat, hyperkalemia, hyperparathyroidism, CHF with EF 35-40%, DM1, HTN, HLD, GERD, CAD, hx. CABG on warfarin, DIANE, chronic steroid use, recurrent left sided pleural effusion, Left BKA, right chronic foot ulcer here for acute respiratory faliure from acute on chronic diastolic heart failure from ESRD complicated by Rhinovirus and pleural effusion -CXR: worsened left sided pleural effusion s/p thoracentesis of 1500ml fluid 06/19/20 -nephrology consulted for dialysis ESRD chronic and stable -resp panel shows rhinovirus, no pneumonia Hyperkalemia resolved DM1 with right foot ulcer chornic and stable -continue SSI -wound care consulted -consult pharmacy -hold insulin pump Hx Gout -cont allopurinol -cont colchicine Elevated liver enzymes -Alk Phos 522 -Total bili 8.1 -noted on last admission, continue to monitor ESRD -continue calcitriol -continue darbepoetin sarah -cont sevelamer -cont tamsulosin CHF hx. CABG, HTN -continue plavix -cont warfarin_> replortedly on warfarin for Cardiomyopathy -cont losartan Hypotension during dialysis -cont midodrine DINAE chronci stable -cont HS CPAP Kidney Transplant Failure -cont prednisone GERD -continue omeprazole HLD chronic stable -cont ezetimibe RLS -cont ropinirole Depression chronic stable -cont sertraline (2) Wheeze: (3) Uncontrolled type 1 diabetes mellitus with diabetic neuropathy, with long- term current use of insulin: (4) Chronic steroid use: (5) Hyperparathyroidism: (6) Recurrent left pleural effusion: (7) S/P CABG (coronary artery bypass graft): (8) Warfarin anticoagulation: (9) Hyperlipidemia: (10) Hypertension: (11) GERD (gastroesophageal reflux disease): (12) CAD (coronary artery disease): (13) Hyperkalemia: Total Time Total Time Spent Total Time Spent (In Minutes): greater than 30 minutes required to create this discharge Discharge Plan Discharge Items Patient Disposition: Home - Self-Care Reason For Visit: DIALYSIS Discharge Diagnosis: diastolic heart falure esrd left pleural effusion , s/p thoracentesis for 1500 rhinovirus pulmonary infection Activity: Per Instructions section Activity Comment: please keep dialysis session 06/20/22 Non-emergency contact: Primary Care Provider and Residential Nurse Call non-emergency contact if: your symptoms worsen Follow-up/Referrals: Eli Costa MD [Primary Care Provider] - Diet: Carb Consistent or DM2 and Dialysis Renal Addtl Attending Provider Instructions: please keep follow up with dialysis treatments you should continue to improved with your Rhinovirus infection please contact your family doctor to update them on your hospital stay, they may request a visit Pending Studies at Discharge: No Stand-Alone Forms: My Be Spotted, Smoking Cessation Medications and DC Order Prescriptions: Continued Santyl 250 unit/gram ointment 1 applic topical DAILY 14 Days Qty: 90 1RF Rx Instructions: Apply nickel thick to wounds daily. clopidogrel [Plavix] 75 mg tablet 75 mg PO HS Qty: 30 5RF sertraline 100 mg tablet 100 mg PO HS Qty: 90 0RF (DME) Dexcom G6 Transmitter Device See Dose Instructions .ROUTE .MEDSUPPLY Qty: 1 3RF Dose Instruction: Change transmitter every 90 days Rx Instructions: Change transmitter every 90 days (DME) Dexcom G6 Sensor Device See Dose Instructions .ROUTE .MEDSUPPLY Qty: 9 3RF Dose Instruction: Change sensor every 10 days Rx Instructions: Change sensor every 10 days insulin aspart U-100 [Novolog U-100 Insulin aspart] 100 unit/mL solution 45 unit continuous subcutaneous infusion CONTINOUS Qty: 30 0RF Rx Instructions: 45 units subcutaneously daily via insulin pump; tamsulosin 0.4 mg capsule 0.4 mg PO DAILY Qty: 90 3RF prednisone 5 mg tablet 5 mg PO HS Qty: 90 3RF ropinirole 0.5 mg tablet 0.5 mg PO DAILY Qty: 90 3RF ezetimibe [Zetia] 10 mg tablet 10 mg PO DAILY ferrous sulfate 325 mg (65 mg iron) tablet 325 mg PO BID sevelamer carbonate [Renvela] 800 mg tablet 1,600 mg PO TID Rx Instructions: must administer with a meal/food -- Take 1 tablet with each meal. Stop calcium acetate when starting Renvela. metoprolol succinate 25 mg tablet extended release 24 hr 75 mg PO DAILY Rx Instructions: per patient pregabalin 75 mg capsule 75 mg PO UD Rx Instructions: Take two tablets in the morning (150mg) and one tablet in the evening (75mg) (DME) insulin syringe-needle U-100 [BD Insulin Syringe] 0.5 mL 29 gauge x 1/2" syringe See Rx Instructions .Route Qty: 200 0RF Rx Instructions: As directed twice daily omeprazole 20 mg capsule,delayed release(DR/EC) 20 mg PO BID acetaminophen [Tylenol] 325 mg Tablet 650 mg PO Q6H PRN (Reason: PAIN/FEVER) lidocaine-prilocaine 2.5-2.5 % cream 1 applic topical DIRECTED PRN (Reason: TO DIALYSIS ACCESS LINE) Rx Instructions: APPLY 1-2 HRS PRIOR TO DIALYSIS warfarin 2 mg Tablet 2 - 4 mg PO DIRECTED Protocol: Dose Management Condition: Friday Dose/Route: 2 mg Instruction: 1 x 2 mg tablet Condition: Friday Dose/Route: 2 mg Instruction: 1 x 2 mg tablet Condition: Friday Dose/Route: 2 mg Instruction: 1 x 2 mg tablet Condition: Friday Dose/Route: 2 mg Instruction: 1 x 2 mg tablet Condition: Dose/Route: 2 mg Instruction: 1 x 2 mg tablet Condition: Friday Dose/Route: 2 mg Instruction: 1 x 2 mg tablet Condition: Friday Dose/Route: 2 mg Instruction: 1 x 2 mg tablet Protocol Text: Adjustment Start Date: Friday06/17/22 INR Value: 2.0 INR Date: 06/14/22 Recheck Date: 06/20/22 Rx Instructions: As directed by anti-coagulation clinic losartan 25 mg tablet 25 mg PO DAILY colchicine 0.6 mg Tablet 0.3 mg PO DAILY atorvastatin 80 mg tablet 40 mg PO HS ergocalciferol (vitamin D2) [Vitamin D2] 1,250 mcg (50,000 unit) Capsule 1,250 mcg PO WK Rx Instructions: MON allopurinol 100 mg tablet 100 mg PO .3X WEEKLY Rx Instructions: TAKE 3 TIMES A WEEK, AFTER DIALYSIS darbepoetin sarah in polysorbat 200 mcg/mL solution 200 mcg subcut DIRECTED furosemide [Lasix] 40 mg tablet 80 mg PO DAILY PRN (Reason: .Wt gain) Rx Instructions: patient says takes PRN for > 3lb wt gain midodrine 5 mg tablet 5 mg PO TIDM Rx Instructions: TAKE 1 TABLET BY MOUTH BEFORE MEALS calcium carbonate [Tums] 200 mg calcium (500 mg) Tablet,Chewable 500 mg PO TIDM calcitriol 0.25 mcg capsule 0.25 mcg PO 3XWK Discharge Orders: Discharge Order (Routine); Ordered 06/19/22 Ordered By: nJ Corado Admission Data Admit Date/Time: 06/17/22 22:39 Attending Provider: Jn Corado Admit Provider: Tracy Bermudez Primary Care Provider: Eli Costa Other Providers: Ronel Lima ; Laura Olea Coding Level of Care Code 07956 INP/OBS DISCH >30 MIN Diagnoses ESRD on dialysis N18.6; Z99.2 Wheeze R06.2 Uncontrolled type 1 diabetes mellitus with diabetic neuropathy, with long-term current use of insulin E10.40; E10.65 Chronic steroid use Hyperparathyroidism E21.3 Recurrent left pleural effusion J90 S/P CABG (coronary artery bypass graft) Z95.1 Warfarin anticoagulation Z79.01 Hyperlipidemia E78.5 Hypertension I10 GERD (gastroesophageal reflux disease) K21.9 CAD (coronary artery disease) I25.10 Hyperkalemia E87.5
[2022-06-24] MEDS ORDERED: ERGOCALCIFEROL 50,000 UNITS 1250 MCG CAP PO SCH (09:00)
== END 2022-06-19 18:55 | disposition home or self-care (01) | DRG 981 ==
LOC: ED 16:45 → EDINP 22:39 → SUATTDRO 22:39 → 2N 06-18 01:40